=== PATIENT | male | born 1950 | race Caucasian/White ===

== ENCOUNTER → 2016-08-04 | Outpatient (CLI) | payer MEDICARE ==
[2016-08-04 08:18] LABS: Basophils # (A) 0.1 k/uL (0-0.2); Basophils % (A) 1 %; CH 31.9; CHCM 34.1; Eosinophils # (A) 0.3 k/uL (0-0.7); Eosinophils % (A) 4 %; HCT 44.9 % (39.0-53.0); HDW 2.81; HGB 14.8 gm/dL (13.0-17.5); Luc # (Auto) 0.16; Luc % (Auto) 2; Lymphocytes # (A) 2.1 k/uL (1.0-4.8); Lymphocytes % (A) 26 %; Mean Platelet Volume 7.4; Monocytes # (A) 0.4 k/uL (0-1.0); Monocytes % (A) 5 %; Neutrophils # (A) 5.1 k/uL (1.3-7.7); Neutrophils % (A) 63 %; RBC 4.78 m/uL (4.30-5.90); RDW 13.7 % (11.5-15.5); WBC 8.2 k/uL (3.8-10.6); WBC (Perox) 8.32
[2016-08-04 13:22] LABS: Calcium 9.4 mg/dL (8.4-10.2); Magnesium 1.8 mg/dL (1.6-2.3); Phosphorous 3.6 mg/dL (2.5-4.5); Uric Acid 5.9 mg/dL (3.5-8.5)
[2016-08-04 13:31] LABS: % Iron Saturation 32.6 % (20-50)
== END ==
LOC: LABWHC1 07:40
PROVIDERS: ATTEND Nurse Practitioner Family
DX: N18.3 Chronic kidney disease, stage 3 (moderate) (principal); E55.9 Vitamin D deficiency, unspecified; N25.81 Secondary hyperparathyroidism of renal origin; M10.9 Gout, unspecified
CPT/HCPCS: 36415; 80048; 82043; 82306; 82728; 83540; 83550; 83735; 83970; 84100; 84550; 85025

== ENCOUNTER → 2016-12-06 | Outpatient (CLI) | payer MEDICARE ==
[2016-12-06 09:14] LABS: Basophils # (A) 0.1 k/uL (0-0.2); Basophils % (A) 1 %; CH 32.3; CHCM 34.2; Eosinophils # (A) 0.5 k/uL (0-0.7); Eosinophils % (A) 6 %; HCT 46.4 % (39.0-53.0); HDW 2.87; HGB 15.2 gm/dL (13.0-17.5); Luc % (Auto) 1; Lymphocytes # (A) 1.9 k/uL (1.0-4.8); Lymphocytes % (A) 23 %; MCHC 32.7 g/dL (31.0-37.0); Mean Platelet Volume 8.5; Monocytes # (A) 0.4 k/uL (0-1.0); Monocytes % (A) 5 %; Neutrophils # (A) 5.3 k/uL (1.3-7.7); Neutrophils % (A) 64 %; RBC 4.89 m/uL (4.30-5.90); RDW 14.2 % (11.5-15.5); WBC 8.2 k/uL (3.8-10.6); WBC (Perox) 7.86
[2016-12-06 09:33] LABS: Calcium 8.9 mg/dL (8.4-10.2); Magnesium 1.8 mg/dL (1.6-2.3); Phosphorous 3.2 mg/dL (2.5-4.5); Potassium 3.7 mmol/L (3.5-5.1); Uric Acid 7.3 mg/dL (3.5-8.5)
[2016-12-06 17:14] LABS: Urine Creatinine 123.4 mg/dL
== END | disposition home or self-care (01) ==
LOC: LABWHC1 08:35
PROVIDERS: ATTEND Nurse Practitioner Family
DX: E55.9 Vitamin D deficiency, unspecified (principal); N18.3 Chronic kidney disease, stage 3 (moderate); D64.9 Anemia, unspecified; M10.9 Gout, unspecified; R80.9 Proteinuria, unspecified
CPT/HCPCS: 36415; 80048; 82043; 82306; 82570; 82728; 83540; 83550; 83735; 83970; 84100; 84550; 85025

== ENCOUNTER → 2017-01-02 | Outpatient (CLI) | payer MEDICARE ==
[2017-01-02 10:10] LABS: CH 32.7; CHCM 34.7; HCT 45.1 % (39.0-53.0); HDW 2.66; HGB 14.9 gm/dL (13.0-17.5); MCH 31.3 pg (25.0-35.0); MCHC 33.1 g/dL (31.0-37.0); MCV 94.5 fL (80.0-100.0); RBC 4.77 m/uL (4.30-5.90); RDW 14.2 % (11.5-15.5); WBC 7.6 k/uL (3.8-10.6)
[2017-01-02 10:46] LABS: Calcium 9.2 mg/dL (8.4-10.2); Potassium 4.2 mmol/L (3.5-5.1); Total Bilirubin 0.8 mg/dL (0.2-1.3); Total Protein 6.8 g/dL (6.3-8.2)
[2017-01-02 14:22] LABS: Hemoglobin A1C 7.5 % (4.2-6.1)
[2017-01-02 17:03] LABS: Urine Creatinine 109.4 mg/dL
== END | disposition home or self-care (01) ==
LOC: LABWHC1 09:19
PROVIDERS: ATTEND Nurse Practitioner
DX: E11.65 Type 2 diabetes mellitus with hyperglycemia (principal); I10 Essential (primary) hypertension; E63.8 Other specified nutritional deficiencies
CPT/HCPCS: 36415; 80053; 80061; 82043; 82570; 83036; 84134; 85027

== ENCOUNTER → 2017-03-30 | Outpatient (CLI) | payer MEDICARE ==
[2017-03-30 10:07] LABS: Basophils # (A) 0.1 k/uL (0-0.2); Basophils % (A) 1 %; CH 31.3; Eosinophils # (A) 0.3 k/uL (0-0.7); Eosinophils % (A) 4 %; HCT 50.2 % (39.0-53.0); HGB 16.5 gm/dL (13.0-17.5); Luc # (Auto) 0.08; Luc % (Auto) 1; Lymphocytes # (A) 1.5 k/uL (1.0-4.8); Lymphocytes % (A) 17 %; MCH 31.2 pg (25.0-35.0); MCHC 32.8 g/dL (31.0-37.0); MCV 95.1 fL (80.0-100.0); Mean Platelet Volume 8.8; Monocytes # (A) 0.5 k/uL (0-1.0); Monocytes % (A) 6 %; Neutrophils # (A) 6.3 k/uL (1.3-7.7); Neutrophils % (A) 72 %; RBC 5.28 m/uL (4.30-5.90); RDW 14.3 % (11.5-15.5); WBC 8.8 k/uL (3.8-10.6); WBC (Perox) 8.72
[2017-03-30 10:14] LABS: Appearance,Urine Clear (Clear); Bilirubin,Urine Negative (Negative); Glucose,Urine (UA) 1+ (Negative); Ketones,Urine Negative (Negative); Leukocyte Esterase,Urine Negative (Negative); Mucus,Urine Rare /hpf; Nitrite,Urine Negative (Negative); Particle Count 1516; Protein,Urine 3+ (Negative); RBC,Urine 2 /hpf (0-5); Specific Gravity,Urine 1.016 (1.001-1.035); UA Billing (MACRO vs. MICRO) MICRO; Urobilinogen,Urine <2.0 mg/dL (<2.0); WBC,Urine 3 /hpf (0-5)
[2017-03-30 10:23] LABS: Calcium 9.1 mg/dL (8.4-10.2); Magnesium 1.8 mg/dL (1.6-2.3); Phosphorus 3.7 mg/dL (2.5-4.5); Potassium 3.7 mmol/L (3.5-5.1); Uric Acid 6.8 mg/dL (3.5-8.5)
[2017-03-30 16:14] LABS: Iron Saturation 37.23 (15.00-50.00)
== END | disposition home or self-care (01) ==
LOC: LABWHC1 09:17
PROVIDERS: ATTEND Internal Medicine Nephrology
DX: E55.9 Vitamin D deficiency, unspecified (principal); E21.3 Hyperparathyroidism, unspecified; N39.0 Urinary tract infection, site not specified; M10.9 Gout, unspecified; N18.3 Chronic kidney disease, stage 3 (moderate); D63.1 Anemia in chronic kidney disease
CPT/HCPCS: 36415; 80048; 81001; 82306; 82728; 83540; 83550; 83735; 83970; 84100; 84550; 85025

== ENCOUNTER → 2017-05-12 | Outpatient (CLI) | payer MEDICARE ==
[2017-05-12 09:27] LABS: Basophils # (A) 0.1 k/uL (0-0.2); Basophils % (A) 1 %; Eosinophils # (A) 0.4 k/uL (0-0.7); Eosinophils % (A) 5 %; HCT 48.6 % (39.0-53.0); Lymphocytes # (A) 1.7 k/uL (1.0-4.8); Lymphocytes % (A) 22 %; MCH 30.5 pg (25.0-35.0); MCHC 32.9 g/dL (31.0-37.0); MCV 92.6 fL (80.0-100.0); Mean Platelet Volume 8.4; Monocytes # (A) 0.4 k/uL (0-1.0); Monocytes % (A) 5 %; Neutrophils # (A) 5.3 k/uL (1.3-7.7); Neutrophils % (A) 67 %; Platelet Count 223 k/uL (150-450); RBC 5.25 m/uL (4.30-5.90); RDW 13.8 % (11.5-15.5); WBC 7.9 k/uL (3.8-10.6)
[2017-05-12 09:38] LABS: Calcium 9.1 mg/dL (8.4-10.2); Magnesium 1.8 mg/dL (1.6-2.3); Phosphorus 3.4 mg/dL (2.5-4.5); Potassium 3.5 mmol/L (3.5-5.1); Uric Acid 5.8 mg/dL (3.5-8.5)
[2017-05-12 10:16] LABS: Appearance,Urine Clear (Clear); Bacteria,Urine Rare /hpf; Bilirubin,Urine Negative (Negative); Blood,Urine Trace (Negative); Color,Urine Yellow; Glucose,Urine (UA) Trace (Negative); Hyaline Casts,Urine 4 /lpf (0-2); Ketones,Urine Negative (Negative); Leukocyte Esterase,Urine Negative (Negative); Mucus,Urine Rare /hpf; Nitrite,Urine Negative (Negative); PH, Urine 6.5 (5.0-8.0); Protein,Urine 3+ (Negative); RBC,Urine 1 /hpf (0-5); Specific Gravity,Urine 1.013 (1.001-1.035); Squamous Epithelial Cell,Urine <1 /hpf (0-4); Urobilinogen,Urine <2.0 mg/dL (<2.0); WBC,Urine 1 /hpf (0-5)
[2017-05-12 16:36] LABS: Iron Saturation 28.31 (15.00-50.00)
[2017-05-12 16:44] LABS: Vitamin D 25 Hydroxy 25.4 ng/mL (30.0-100.0)
[2017-05-12 17:22] LABS: Parathyroid Hormone Intact 78.3 pg/mL (14.0-72.0)
== END | disposition home or self-care (01) ==
LOC: LABWHC1 08:39
PROVIDERS: ATTEND Internal Medicine Nephrology
DX: N18.3 Chronic kidney disease, stage 3 (moderate) (principal); N39.0 Urinary tract infection, site not specified; D64.9 Anemia, unspecified; E55.9 Vitamin D deficiency, unspecified; E21.3 Hyperparathyroidism, unspecified; M10.9 Gout, unspecified
CPT/HCPCS: 36415; 80048; 81001; 82306; 82728; 83540; 83550; 83735; 83970; 84100; 84550; 85025

== ENCOUNTER → 2017-06-24 | Outpatient (CLI) | payer MEDICARE ==
[2017-06-24 10:37] LABS: HGB 14.8 gm/dL (13.0-17.5); MCH 30.6 pg (25.0-35.0); MCHC 32.8 g/dL (31.0-37.0); MCV 93.5 fL (80.0-100.0); Mean Platelet Volume 7.5; Platelet Count 241 k/uL (150-450); RBC 4.82 m/uL (4.30-5.90); RDW 13.5 % (11.5-15.5); WBC 10.1 k/uL (3.8-10.6)
[2017-06-24 11:08] LABS: Potassium 4.2 mmol/L (3.5-5.1)
== END | disposition home or self-care (01) ==
LOC: LABPAT 09:38
PROVIDERS: ATTEND Internal Medicine Interventional Cardiology
DX: Z01.812 Encounter for preprocedural laboratory examination (principal); I25.10 Atherosclerotic heart disease of native coronary artery without angina pectoris
CPT/HCPCS: 36415; 80051; 82565; 84520; 85027

== ENCOUNTER 2017-07-01 05:49 | Day surgery (SDC) | payer MEDICARE ==
[2017-06-25 16:00] VITALS: BMI 33.7
[~2017-07-01 05:49] MED LIST: ALPRAZolam 0.25 MG TAB PO PRN; ALPRAZolam 0.5 MG TAB PO PRN; ASPIRIN 325 MG TAB PO STA; NITROGLYCERIN SL TABS 0.4 MG TAB SUBLINGUAL PRN; SODIUM CHLORIDE 0.9% 1,000 ML IV SCH
[2017-07-01] MEDS ORDERED: SODIUM CHLORIDE 0.9% 1,000 ML IV SCH ×2 (06:00→09:45)
[2017-07-01 06:29] LABS: Glucose,Whole Blood 221 mg/dL (75-99)
[2017-07-01 06:50] LABS: Calcium 9.2 mg/dL (8.4-10.2); Potassium 3.4 mmol/L (3.5-5.1)
[2017-07-01] MEDS ORDERED: INSULIN ASPART 100 UNIT/ML 1 ML 10 ML VIAL SQ ONE ×2 (07:08→10:12)
[2017-07-01 07:30] VITALS: PULSE 78; TEMP 98.2
[2017-07-01] MEDS ORDERED: VERAPAMIL 2.5 MG/ML 2 ML AMP ONE (08:59)
[2017-07-01] MEDS ORDERED: LIDOCAINE 2% INJ 20 MG/ML (20 ML MDV) ONE (08:59)
[2017-07-01] MEDS ORDERED: MIDAZOLAM 2 MG/2 ML VIAL ONE (08:59)
[2017-07-01] MEDS ORDERED: LIDOCAINE 2% INJ 20 MG/ML SQ ONE (09:08)
[2017-07-01] MEDS ORDERED: MIDAZOLAM 2 MG/2 ML VIAL IVP ONE (09:10)
[2017-07-01] MEDS ORDERED: IODIXANOL 320 MG/ML 100 ML INTRAARTER ONE (09:30)
[2017-07-01] MEDS ORDERED: SODIUM CHLORIDE 0.9% 1,000 ML IV ONE (09:31)
[2017-07-01] MEDS ORDERED: RX INFO: IV CONTRAST WAS GIVEN 1 EACH MISC MISCELLANE PRN (09:43)
[2017-07-01 10:19] LABS: Glucose,Whole Blood 226 mg/dL (75-99)
--- NOTE | 2017-07-01 10:33 | CC ---
CARDIAC CATHETERIZATION REPORT DATE OF SERVICE: 07/01/2017 PERFORMING PHYSICIAN: Shantanu Gong MD. PROCEDURE PERFORMED: 1. Selective left and right coronary angiogram. 2. SVG to RCA angiogram. 3. Left internal mammary artery angiogram. 4. Left heart catheterization. INDICATION: This is a pleasant 67-year-old gentleman who is known to have coronary artery disease and prior coronary artery bypass grafting who received AGUILLON to LAD, SVG to diagonal, SVG to first, second and third OM, and SVG to RCA, underwent a stress echocardiogram and that showed multiple areas of ischemia. In view of that, a heart catheterization was recommended. He is asymptomatic, but he does have very poor functional capacity. APPROACH: Right common femoral artery. COMPLICATION: None. LEVEL OF SEDATION: Moderate with sedation length of 28 minutes. PROCEDURE DESCRIPTION: After obtaining an informed consent, the patient was brought to the [facility]. The right common femoral artery was cannulated using micropuncture technique and a micropuncture wire passed easily, then I placed a 6-Swazi sheath in the right common femoral artery. After that, I did selective left and right coronary angiogram using JL4 and JR4 catheters. I did after that left heart catheterization using 6-Swazi pigtail catheter. The SVG to RCA angiogram and AGUILLON to LAD angiogram were performed using the JR4 catheter. After that, I did aortic root angiogram to assess the SVG to the left circumflex. The procedure was completed without any complication. SELECTIVE CORONARY ANGIOGRAM: 1. The left main is a large caliber vessel and it is angiographically normal. It bifurcates into the circumflex and left anterior descending artery. 2. The left circumflex is a large caliber vessel. It is a nondominant vessel. The proximal circ appeared to have mild disease only. It gives rise into first OM branch which is a medium-caliber vessel with disease in the proximal portion about 50%. The mid left circumflex has mild disease only and gives rise into a second OM branch which appeared to be angiographically normal. The left circumflex in the mid to distal portion has a tubular lesion in the range of 70%. 3. The LAD, the proximal LAD appeared to have mild disease only. The mid LAD has a long tubular lesion, appeared to be in the range of 70%. Competitive flow was seen in the LAD coming from the AGUILLON. 4. The RCA is a large caliber vessel and it is a dominant vessel and is 100% occluded in the midportion. CORONARY BYPASS ANGIOGRAM: 1. The AGUILLON to LAD is patent. 2. The SVG to diagonal is occluded. 3. The SVG to first, second and third circ are occluded. 4. The SVG to RCA is patent with disease in the distal RCA appeared to be in the range of 70%. CONCLUSION: 1. Severe triple-vessel coronary artery disease. 2. Patent AGUILLON to left anterior descending artery. 3. Patent saphenous vein graft to right coronary artery with severe disease in the right coronary artery distal to the saphenous vein graft anastomosis. 4. The occlusion of the saphenous vein graft to diagonal, OM1, OM2, and OM3. POSTPROCEDURE MANAGEMENT: The patient will be scheduled to undergo a PCI of the RCA through the SVG and also PCI of the left circumflex in the next 1 to 2 weeks. MMODL / IJN: [id number] /
--- NOTE | 2017-07-01 10:35 | LTR ---
DATE OF SERVICE: 07/01/2017 RE: Walter Simmons Dear Dr. Carmona; Mr. Walter Simmons underwent heart catheterization and that revealed severe triple- vessel coronary artery disease. We found the occlusion of all bypasses to the left circumflex and also to the diagonal. He will be scheduled to undergo an angioplasty in the next 1 to 2 weeks. I did not perform an angioplasty in view of the maximal amount of contrast we used. I want to thank you for allowing me to participate in his care. Sincerely, MD SHASHANK Garland / JASMIN: [id number] /
[2017-07-01] MEDS ORDERED: hydrALAZINE HCL 20 MG/ML 1 ML VIAL IVP STA (15:16)
[2017-07-01 17:06] VITALS: RESP 18
[2017-07-01 17:10] VITALS: BP 177/70
== END 2017-07-01 17:31 | disposition home or self-care (01) ==
LOC: CATHCVL 05:49
PROVIDERS: ATTEND Internal Medicine Interventional Cardiology
DX: I25.700 Atherosclerosis of coronary artery bypass graft(s), unspecified, with unstable angina pectoris (principal); I25.110 Atherosclerotic heart disease of native coronary artery with unstable angina pectoris; I10 Essential (primary) hypertension; E78.5 Hyperlipidemia, unspecified; Z95.1 Presence of aortocoronary bypass graft; E11.9 Type 2 diabetes mellitus without complications; E78.00 Pure hypercholesterolemia, unspecified; Z86.711 Personal history of pulmonary embolism; Z79.82 Long term (current) use of aspirin; Z79.4 Long term (current) use of insulin; Z79.899 Other long term (current) drug therapy
CPT/HCPCS: 93459; 93567; 80048; C1894 ×2; C1769; C1760; J2001; J2250; J0360; Q9967

== ENCOUNTER 2017-07-14 09:03 | Day surgery (SDC) | payer MEDICARE ==
[2017-07-13 11:28] VITALS: BMI 33.7
[~2017-07-14 09:03] MED LIST changes: -SODIUM CHLORIDE 0.9% 1,000 ML IV SCH; +SODIUM CHLORIDE 0.9% 1,000 ML in EMPTY BAG 1 BAG IV ONE
[2017-07-14 09:37] LABS: Glucose,Whole Blood 246 mg/dL (75-99)
[2017-07-14] MEDS: INSULIN ASPART 100 UNIT/ML 1 ML 10 ML VIAL SQ SCH ×4 (09:37→21:12)
[2017-07-14 12:17] LABS: Glucose,Whole Blood 229 mg/dL (75-99)
[2017-07-14] MEDS ORDERED: MIDAZOLAM 2 MG/2 ML VIAL IV ONE (13:15)
[2017-07-14] MEDS ORDERED: LIDOCAINE 2% INJ 20 MG/ML SQ ONE (13:22)
[2017-07-14] MEDS ORDERED: BIVALIRUDIN BOLUS 250 MG/50 ML IV ONE (13:28)
[2017-07-14] MEDS ORDERED: BIVALIRUDIN 250 MG in SODIUM CHLORIDE 0.9% 50 ML IV ONE (13:29)
[2017-07-14] MEDS ORDERED: niCARdipine 25 MG/10 ML VIAL INTRACORON ONE (13:37)
[2017-07-14] MEDS ORDERED: NITROGLYCERIN 1000MCG/10ML SYRINGE INTRACORON ONE (13:37)
[2017-07-14] MEDS ORDERED: ZOLPIDEM 5 MG TAB PO PRN (13:44)
[2017-07-14] MEDS ORDERED: ATROPINE SULFATE 0.1 MG/ML 10ML SYRINGE IV PRN (13:44)
[2017-07-14] MEDS ORDERED: MAG HYDROX/AL HYDROX/SIMETH 30 ML CUP PO PRN (13:44)
[2017-07-14] MEDS ORDERED: RX INFO: IV CONTRAST WAS GIVEN 1 EACH MISC MISCELLANE PRN (13:44)
[2017-07-14] MEDS ORDERED: NITROGLYCERIN SL TABS 0.4 MG TAB SUBLINGUAL PRN (13:44)
[2017-07-14] MEDS ORDERED: SODIUM CHLORIDE 0.9% 1,000 ML IV SCH (13:45)
[2017-07-14] MEDS ORDERED: CLOPIDOGREL 75 MG TAB PO ONE (13:45)
[2017-07-14] MEDS ORDERED: IODIXANOL 320 MG/ML 100 ML INTRAARTER ONE (13:53)
[2017-07-14 14:39] LABS: Glucose,Whole Blood 191 mg/dL (75-99)
[2017-07-14 17:26] LABS: Glucose,Whole Blood 202 mg/dL (75-99)
[2017-07-14] MEDS ORDERED: INSULIN ASPART 100 UNIT/ML 1 ML 10 ML VIAL SQ SCH ×2 (17:30)
[2017-07-14] MEDS ORDERED: ACETAMINOPHEN TAB 325 MG TAB PO PRN (19:06)
[2017-07-14 20:51] LABS: Glucose,Whole Blood 138 mg/dL (75-99)
[2017-07-14] MEDS ORDERED: METOPROLOL TARTRATE 50 MG TAB PO SCH (21:00)
[2017-07-14] MEDS ORDERED: HYDROCHLOROTHIAZIDE 12.5 MG CAP PO SCH (21:00)
[2017-07-14] MEDS ORDERED: FAMOTIDINE 20 MG TAB PO SCH (21:00)
[2017-07-14] MEDS ORDERED: INSULIN NPH 300 UNIT/3 ML VIAL SQ SCH (21:00)
[2017-07-14] MEDS ORDERED: ATORVASTATIN 20 MG TAB PO SCH (21:00)
[2017-07-15 04:31] VITALS: RESP 18
[2017-07-15 06:08] LABS: Glucose,Whole Blood 169 mg/dL (75-99)
[2017-07-15] MEDS: INSULIN ASPART 100 UNIT/ML 1 ML 10 ML VIAL SQ SCH (06:13)
[2017-07-15 07:13] LABS: Basophils # (A) 0.1 k/uL (0-0.2); Basophils % (A) 1 %; Eosinophils # (A) 0.3 k/uL (0-0.7); Eosinophils % (A) 3 %; HCT 40.3 % (39.0-53.0); HGB 13.8 gm/dL (13.0-17.5); Lymphocytes # (A) 1.1 k/uL (1.0-4.8); Lymphocytes % (A) 13 %; MCHC 34.3 g/dL (31.0-37.0); MCV 90.4 fL (80.0-100.0); Mean Platelet Volume 7.3; Monocytes # (A) 0.6 k/uL (0-1.0); Monocytes % (A) 7 %; Neutrophils # (A) 6.5 k/uL (1.3-7.7); Neutrophils % (A) 75 %; Platelet Count 223 k/uL (150-450); RBC 4.46 m/uL (4.30-5.90); RDW 13.5 % (11.5-15.5); WBC 8.8 k/uL (3.8-10.6)
[2017-07-15 07:20] LABS: Calcium 9.1 mg/dL (8.4-10.2); Potassium 3.6 mmol/L (3.5-5.1)
[2017-07-15] MEDS ORDERED: INSULIN ASPART 100 UNIT/ML 1 ML 10 ML VIAL SQ SCH (07:30)
--- NOTE | 2017-07-15 08:31 | PTCA ---
PERCUTANEOUSTRANS CORORONARY ANGIOGRAPHY DATE OF SERVICE: July 14, 2017. PERFORMING PHYSICIAN: Shantanu Gong MD, business developer. PROCEDURE PERFORMED: Successful stenting of the distal RCA using a 2.75 x 18 mm Xience JOEY with good angiographic results. INDICATION: This is a pleasant 67-year-old gentleman with a known history of coronary artery disease and prior coronary artery bypass grafting who underwent a heart catheterization recently and that showed severe triple-vessel coronary artery disease with patent SVG to RCA as well as occlusion of all other vein graft and also patent AGUILLON to LAD, who was brought today to undergo an intervention on the RCA through with the SVG. APPROACH: Right common femoral artery. COMPLICATION: None. LEVEL OF SEDATION: Moderate with sedation length of 25 minutes. PROCEDURE DESCRIPTION: After obtaining an informed consent, the patient was brought to cardiac cathodic protection technician. The right common femoral artery was cannulated using micropuncture technique, the micropuncture wire passed easily, then I placed a 6-Czech sheath in the right common femoral artery. After that, I did start anticoagulation using Angiomax. Subsequently I did engage the SVG using multipurpose catheter. A whisper wire was used to wire the RCA. Subsequently I did balloon angioplasty of the distal RCA through the SVG using 2.5 x 15 mm balloon and then deployed a 275 x 18 mm Xience JOEY where the stent was positioned under fluoroscopy guidance and deployed under 14 atmospheres for 20 seconds. The following angiogram showed good angiographic results. The procedure was completed without any complication. POSTPROCEDURE MANAGEMENT: 1. Dual anti-platelet therapy. 2. Risk factors modifications. 3. Follow up with the patient. MMODL / IJN: [id number] /
[2017-07-15] MEDS ORDERED: ASPIRIN 81 MG PO SCH (09:00)
[2017-07-15] MEDS ORDERED: LISINOPRIL 20 MG TAB PO SCH (09:00)
[2017-07-15] MEDS ORDERED: METOPROLOL TARTRATE 50 MG TAB PO SCH (09:00)
[2017-07-15] MEDS ORDERED: PIOGLITAZONE 15 MG TAB PO SCH (09:00)
[2017-07-15] MEDS ORDERED: amLODIPine 10 MG TAB PO SCH (09:00)
[2017-07-15] MEDS ORDERED: ALLOPURINOL 100 MG TAB PO SCH (09:00)
[2017-07-15 10:42] VITALS: BP 141/72; PULSE 82; TEMP 97.9
[2017-07-15] MEDS ORDERED: CLOPIDOGREL 75 MG TAB PO SCH (12:00)
[2017-07-15 14:27] LABS: Hemoglobin A1C 8.9 % (4.0-6.0)
--- NOTE | 2017-07-16 08:33 | DS ---
DISCHARGE SUMMARY ADMISSION DATE: 07/14/2017. DISCHARGE DATE: 07/15/2017. BRIEF HISTORY: This is a pleasant 67-year-old gentleman who was admitted to the hospital and underwent successful balloon angioplasty of the distal right coronary artery with a good angiographic result and without any complication using drug-eluting stent. The procedure was performed from the right groin which is soft, nontender and without any bruises. The patient is going to be discharged home on dual anti-platelet therapy as well as statin. Also I am going to follow up with the patient in a week. MMFLORENCE / ANTONN: [id number] /
[2017-07-28] MEDS ORDERED: ERGOCALCIFEROL 50,000 UNIT CAP PO SCH (09:00)
== END 2017-07-15 10:15 | disposition home or self-care (01) ==
LOC: CATHCVL 09:03 → 6SEL 13:40 → CATHCVL 07-15 10:15
PROVIDERS: ATTEND Internal Medicine Interventional Cardiology
DX: I25.810 Atherosclerosis of coronary artery bypass graft(s) without angina pectoris (principal); I10 Essential (primary) hypertension; E78.5 Hyperlipidemia, unspecified; E11.9 Type 2 diabetes mellitus without complications; Z79.82 Long term (current) use of aspirin; Z79.4 Long term (current) use of insulin; Z79.899 Other long term (current) drug therapy; Z86.711 Personal history of pulmonary embolism; Z95.1 Presence of aortocoronary bypass graft
CPT/HCPCS: 80048; 85025; 83036; C9604; C1769 ×3; C1887; C1725; C1894; C1874; J2001; J2250; Q9967; J0583

== ENCOUNTER 2017-08-05 06:29 | Day surgery (SDC) | payer MEDICARE ==
[2017-08-03 16:26] VITALS: BMI 33.7
[2017-08-05] MEDS ORDERED: ASPIRIN 325 MG TAB PO ONE (06:37)
[2017-08-05] MEDS ORDERED: SODIUM CHLORIDE 0.9% 1,000 ML in EMPTY BAG 1 BAG IV ONE (06:37)
[2017-08-05] MEDS ORDERED: ALPRAZolam 0.25 MG TAB PO PRN (06:37)
[2017-08-05 07:28] LABS: Glucose,Whole Blood 164 mg/dL (75-99)
[2017-08-05 07:35] LABS: Basophils # (A) 0.1 k/uL (0-0.2); Basophils % (A) 1 %; Eosinophils # (A) 0.4 k/uL (0-0.7); Eosinophils % (A) 5 %; HCT 39.2 % (39.0-53.0); HGB 13.6 gm/dL (13.0-17.5); Lymphocytes # (A) 1.5 k/uL (1.0-4.8); Lymphocytes % (A) 17 %; MCH 31.3 pg (25.0-35.0); MCHC 34.6 g/dL (31.0-37.0); MCV 90.3 fL (80.0-100.0); Mean Platelet Volume 7.6; Monocytes # (A) 0.5 k/uL (0-1.0); Monocytes % (A) 5 %; Neutrophils # (A) 6.3 k/uL (1.3-7.7); Neutrophils % (A) 72 %; Platelet Count 241 k/uL (150-450); RBC 4.34 m/uL (4.30-5.90); RDW 13.4 % (11.5-15.5); WBC 8.8 k/uL (3.8-10.6)
[2017-08-05] MEDS ORDERED: SODIUM CHLORIDE 0.9% 1,000 ML IV ONE (07:49)
[2017-08-05 07:51] LABS: Calcium 9.1 mg/dL (8.4-10.2); Potassium 3.7 mmol/L (3.5-5.1)
[2017-08-05] MEDS ORDERED: LIDOCAINE 2% INJ 20 MG/ML (20 ML MDV) ONE (08:41)
[2017-08-05] MEDS ORDERED: MIDAZOLAM 2 MG/2 ML VIAL ONE (08:52)
[2017-08-05] MEDS: MIDAZOLAM 2 MG/2 ML VIAL IV ONE ×2 (09:05→09:12)
[2017-08-05] MEDS ORDERED: fentaNYL (PF) 50 MCG/ML 2 ML AMP ONE (09:15)
[2017-08-05] MEDS ORDERED: fentaNYL (PF) 50 MCG/ML 2 ML AMP IV ONE (09:17)
[2017-08-05] MEDS ORDERED: BIVALIRUDIN 250 MG in SODIUM CHLORIDE 0.9% 50 ML IV ONE (09:19)
[2017-08-05] MEDS ORDERED: BIVALIRUDIN BOLUS 250 MG/50 ML IV ONE (09:19)
[2017-08-05] MEDS: NITROGLYCERIN 1000MCG/10ML SYRINGE INTRACORON ONE ×2 (09:21→09:52)
[2017-08-05] MEDS ORDERED: niCARdipine Syringe (1,000 mcg/10 mL) INTRACORON ONE (09:53)
[2017-08-05] MEDS ORDERED: CLOPIDOGREL 75 MG TAB ONE (09:57)
[2017-08-05] MEDS ORDERED: IOPAMIDOL-370 125ML BTL INJ ONE (09:59)
[2017-08-05] MEDS ORDERED: CLOPIDOGREL 75 MG TAB PO ONE (10:06)
[2017-08-05] MEDS ORDERED: HEPARIN SODIUM 1,000 UN/ML (10ML VL) ONE (10:10)
[2017-08-05] MEDS ORDERED: ZOLPIDEM 5 MG TAB PO PRN (10:11)
[2017-08-05] MEDS ORDERED: MAG HYDROX/AL HYDROX/SIMETH 30 ML CUP PO PRN (10:11)
[2017-08-05] MEDS ORDERED: RX INFO: IV CONTRAST WAS GIVEN 1 EACH MISC MISCELLANE PRN (10:11)
[2017-08-05] MEDS ORDERED: ATROPINE SULFATE 0.1 MG/ML 10ML SYRINGE IV PRN (10:11)
[2017-08-05] MEDS ORDERED: NITROGLYCERIN SL TABS 0.4 MG TAB SUBLINGUAL PRN (10:11)
[2017-08-05] MEDS ORDERED: SODIUM CHLORIDE 0.9% 1,000 ML IV SCH (10:15)
[2017-08-05 11:34] LABS: Glucose,Whole Blood 158 mg/dL (75-99)
[2017-08-05] MEDS ORDERED: INSULIN ASPART 100 UNIT/ML 1 ML 10 ML VIAL SQ ONE (12:51)
--- NOTE | 2017-08-05 13:00 | PTCA ---
PERCUTANEOUSTRANS CORORONARY ANGIOGRAPHY PERCUTANEOUS CORONARY INTERVENTION. DATE OF SERVICE: 08/05/2017 PERFORMING PHYSICIAN: Shantanu Gong MD, orchestra conductor. PROCEDURE PERFORMED: Successful stenting of the third obtuse marginal branch of the left circumflex using 2.5 x 15 mm stents with good angiographic results. INDICATION: This is a pleasant 67-year-old gentleman who was experiencing symptoms of fatigue and tiredness. He underwent a stress test and that showed multiple areas of ischemia. Subsequently, he underwent a heart catheterization and that revealed severe triple- vessel coronary artery disease where he underwent stenting of the RCA in the past and he was brought today to undergo stenting of the left circumflex. APPROACH: Right common femoral artery. COMPLICATION: None. LEVEL OF SEDATION: Moderate sedation length of 54 minutes. PROCEDURE DESCRIPTION: After obtaining informed consent, the patient was brought to the cardiac sawyer cork slabs. The right common femoral artery was cannulated using micropuncture technique, the micropuncture wire passed easily, then I placed a 6-Wolof sheath in the right common femoral artery. At that point, anticoagulation was initiated using Angiomax. After that, I did engage the left main using XB3.5 guide. It was wired using a whisper wire. After that I did balloon angioplasty of the third obtuse marginal branch of the left circumflex using a 2.5 mm balloon and after that I could not advance the stent, so I had to double wire the OM using a run-through wire. After that I deployed 2.5 x 15 mm stents in the proximal and midportion of that OM where both the stents were positioned under fluoroscopy guidance and deployed there under 8 atmospheres for 20 seconds. The following angiogram showed good angiographic results and the procedure was completed without any complication. POSTPROCEDURE MANAGEMENT: 1. Dual anti-platelet therapy. 2. Risk factors modifications. 3. Follow up with the patient. MMODL / IJN: [id number] /
[2017-08-05 16:56] LABS: Glucose,Whole Blood 158 mg/dL (75-99)
[2017-08-05] MEDS ORDERED: ACETAMINOPHEN TAB 325 MG TAB PO PRN (17:07)
[2017-08-05] MEDS ORDERED: INSULIN ASPART 100 UNIT/ML 1 ML 10 ML VIAL SQ SCH (17:30)
[2017-08-05 20:50] LABS: Glucose,Whole Blood 158 mg/dL (75-99)
[2017-08-05] MEDS ORDERED: INSULIN NPH 300 UNIT/3 ML VIAL SQ SCH (21:00)
[2017-08-05] MEDS ORDERED: METOPROLOL TARTRATE 50 MG TAB PO SCH (21:00)
[2017-08-05] MEDS ORDERED: HYDROCHLOROTHIAZIDE 12.5 MG CAP PO SCH (21:00)
[2017-08-05] MEDS ORDERED: FAMOTIDINE 20 MG TAB PO SCH (21:00)
[2017-08-05] MEDS ORDERED: ATORVASTATIN 20 MG TAB PO SCH (21:00)
[2017-08-06 06:21] LABS: Glucose,Whole Blood 121 mg/dL (75-99)
[2017-08-06 06:32] LABS: Basophils % (A) 1 %; Eosinophils # (A) 0.4 k/uL (0-0.7); Eosinophils % (A) 5 %; HCT 37.7 % (39.0-53.0); Lymphocytes # (A) 1.4 k/uL (1.0-4.8); Lymphocytes % (A) 21 %; MCH 31.3 pg (25.0-35.0); MCHC 34.4 g/dL (31.0-37.0); Mean Platelet Volume 7.7; Monocytes # (A) 0.4 k/uL (0-1.0); Monocytes % (A) 5 %; Neutrophils # (A) 4.6 k/uL (1.3-7.7); Neutrophils % (A) 67 %; Platelet Count 211 k/uL (150-450); RBC 4.14 m/uL (4.30-5.90); RDW 13.6 % (11.5-15.5); WBC 6.9 k/uL (3.8-10.6)
[2017-08-06 06:46] LABS: Potassium 3.3 mmol/L (3.5-5.1)
[2017-08-06] MEDS ORDERED: INSULIN ASPART 100 UNIT/ML 1 ML 10 ML VIAL SQ SCH ×2 (07:30→12:30)
[2017-08-06 08:13] VITALS: BP 147/69; PULSE 89; RESP 18; TEMP 97.1
[2017-08-06] MEDS ORDERED: ASPIRIN 81 MG PO SCH (09:00)
[2017-08-06] MEDS ORDERED: FUROSEMIDE 40 MG TAB PO SCH (09:00)
[2017-08-06] MEDS ORDERED: amLODIPine 10 MG TAB PO SCH (09:00)
[2017-08-06] MEDS ORDERED: METOPROLOL TARTRATE 50 MG TAB PO SCH (09:00)
[2017-08-06] MEDS ORDERED: ALLOPURINOL 100 MG TAB PO SCH (09:00)
[2017-08-06] MEDS ORDERED: PIOGLITAZONE 15 MG TAB PO SCH (09:00)
[2017-08-06] MEDS ORDERED: LISINOPRIL 10 MG TAB PO SCH (09:00)
[2017-08-06] MEDS ORDERED: CLOPIDOGREL 75 MG TAB PO SCH (09:00)
--- NOTE | 2017-08-06 10:25 | DS ---
DISCHARGE SUMMARY ADMISSION DATE: 08/05/2017 DISCHARGE DATE: 08/06/2017 BRIEF HISTORY: This is a pleasant 67-year-old gentleman with coronary artery disease and prior coronary artery bypass grafting who was experiencing symptoms of fatigue and tiredness as well as shortness of breath. He underwent a heart catheterization and that revealed severe disease involving the distal right coronary artery as well as severe disease involving the left circumflex. He underwent successful stenting of the distal RCA and was brought yesterday and underwent successful stenting of the left circumflex with good angiographic results. The procedure was performed with good angiographic results with possible tiny distal edge dissection was non flow-limiting. On follow up with him today, he is already feeling better. He stated he is quite more alert. He is going to be discharged home on dual anti-platelet therapy and I will see the patient in the office next week. SHASHANK / JAMSIN: [id number] /
[2017-09-01] MEDS ORDERED: ERGOCALCIFEROL 50,000 UNIT CAP PO SCH (12:00)
== END 2017-08-06 09:03 | disposition home or self-care (01) ==
LOC: CATHCVL 06:29 → 6SEL 10:06 → CATHCVL 08-06 09:03
PROVIDERS: ATTEND Internal Medicine Interventional Cardiology
DX: I25.10 Atherosclerotic heart disease of native coronary artery without angina pectoris (principal); I10 Essential (primary) hypertension; E78.5 Hyperlipidemia, unspecified; E11.9 Type 2 diabetes mellitus without complications; Z79.4 Long term (current) use of insulin; Z86.711 Personal history of pulmonary embolism; Z79.02 Long term (current) use of antithrombotics/antiplatelets; Z95.1 Presence of aortocoronary bypass graft; Z95.5 Presence of coronary angioplasty implant and graft; Z82.3 Family history of stroke; Z79.82 Long term (current) use of aspirin; Z79.899 Other long term (current) drug therapy
CPT/HCPCS: 80048 ×2; 85025 ×2; C9600; C1760 ×2; C1769 ×6; C1725; C1887; C1894 ×2; C1874; J2250; J3010; J0583; Q9967

== ENCOUNTER → 2017-08-25 | Outpatient (CLI) | payer MEDICARE ==
[2017-08-25 10:40] LABS: Basophils # (A) 0.1 k/uL (0-0.2); Basophils % (A) 1 %; Eosinophils # (A) 0.4 k/uL (0-0.7); Eosinophils % (A) 5 %; HCT 40.2 % (39.0-53.0); HGB 13.7 gm/dL (13.0-17.5); Lymphocytes # (A) 1.3 k/uL (1.0-4.8); Lymphocytes % (A) 14 %; MCH 31.6 pg (25.0-35.0); MCHC 34.1 g/dL (31.0-37.0); MCV 92.5 fL (80.0-100.0); Mean Platelet Volume 7.7; Monocytes # (A) 0.4 k/uL (0-1.0); Monocytes % (A) 5 %; Neutrophils # (A) 6.8 k/uL (1.3-7.7); Neutrophils % (A) 75 %; Platelet Count 239 k/uL (150-450); RBC 4.34 m/uL (4.30-5.90); RDW 13.7 % (11.5-15.5); WBC 9.1 k/uL (3.8-10.6)
[2017-08-25 11:08] LABS: Calcium 9.3 mg/dL (8.4-10.2); Magnesium 1.9 mg/dL (1.6-2.3); Phosphorus 3.8 mg/dL (2.5-4.5); Potassium 3.6 mmol/L (3.5-5.1); Uric Acid 6.4 mg/dL (3.5-8.5)
[2017-08-25 13:28] LABS: Appearance,Urine Clear (Clear)
[2017-08-25 13:29] LABS: Bilirubin,Urine Negative (Negative); Color,Urine Light Yellow
[2017-08-25 13:30] LABS: Glucose,Urine (UA) 1+ (Negative); Protein,Urine 3+ (Negative)
[2017-08-25 13:31] LABS: Blood,Urine Negative (Negative); Leukocyte Esterase,Urine Negative (Negative); Nitrite,Urine Negative (Negative)
[2017-08-25 13:32] LABS: RBC,Urine 0 /hpf (0-5); Squamous Epithelial Cell,Urine 0 /hpf (0-4); Urobilinogen,Urine <2.0 mg/dL (<2.0)
[2017-08-25 13:33] LABS: WBC,Urine 0 /hpf (0-5)
[2017-08-25 15:12] LABS: Ketones,Urine Negative (Negative)
[2017-08-25 16:07] LABS: Iron Saturation 22.38 (15.00-50.00)
== END | disposition home or self-care (01) ==
LOC: LABWHC1 09:09
PROVIDERS: ATTEND Nurse Practitioner Family
DX: M10.9 Gout, unspecified (principal); R80.9 Proteinuria, unspecified; D63.1 Anemia in chronic kidney disease; N18.3 Chronic kidney disease, stage 3 (moderate); E83.39 Other disorders of phosphorus metabolism
CPT/HCPCS: 36415; 80048; 81001; 82306; 82728; 83540; 83550; 83735; 83970; 84100; 84550; 85025

== ENCOUNTER → 2017-10-26 | Outpatient (CLI) | payer MEDICARE ==
[2017-10-26 09:01] LABS: Albumin 3.9 g/dL (3.5-5.0); Calcium 9.3 mg/dL (8.4-10.2); Potassium 4.3 mmol/L (3.5-5.1); Total Bilirubin 0.6 mg/dL (0.2-1.3); Total Protein 6.5 g/dL (6.3-8.2)
[2017-10-26 09:17] LABS: T4, Free (Free Thyroxine) 0.95 ng/dL (0.78-2.19)
[2017-10-26 17:59] LABS: Hemoglobin A1C 7.7 % (4.0-6.0)
== END | disposition home or self-care (01) ==
LOC: LABWHC1 08:10
PROVIDERS: ATTEND Internal Medicine
DX: E11.65 Type 2 diabetes mellitus with hyperglycemia (principal)
CPT/HCPCS: 36415; 80053; 80061; 83036; 84439; 84443

== ENCOUNTER → 2017-11-18 | Outpatient (CLI) | payer MEDICARE ==
[2017-11-18 09:07] LABS: Appearance,Urine Clear (Clear); Bilirubin,Urine Negative (Negative); Blood,Urine Trace (Negative); Color,Urine Yellow; Glucose,Urine (UA) Negative (Negative); Ketones,Urine Negative (Negative); Leukocyte Esterase,Urine Negative (Negative); Mucus,Urine Rare /hpf; Nitrite,Urine Negative (Negative); PH, Urine 5.5 (5.0-8.0); Protein,Urine 2+ (Negative); RBC,Urine <1 /hpf (0-5); Specific Gravity,Urine 1.011 (1.001-1.035); Squamous Epithelial Cell,Urine <1 /hpf (0-4); Urobilinogen,Urine <2.0 mg/dL (<2.0); WBC,Urine <1 /hpf (0-5)
[2017-11-18 09:12] LABS: Basophils # (A) 0.1 k/uL (0-0.2); Basophils % (A) 1 %; Eosinophils # (A) 0.5 k/uL (0-0.7); Eosinophils % (A) 6 %; HGB 13.9 gm/dL (13.0-17.5); Lymphocytes # (A) 1.4 k/uL (1.0-4.8); Lymphocytes % (A) 16 %; MCHC 33.1 g/dL (31.0-37.0); MCV 93.5 fL (80.0-100.0); Mean Platelet Volume 6.8; Monocytes # (A) 0.4 k/uL (0-1.0); Monocytes % (A) 5 %; Neutrophils # (A) 6.5 k/uL (1.3-7.7); Neutrophils % (A) 71 %; Platelet Count 235 k/uL (150-450); RDW 14.4 % (11.5-15.5)
[2017-11-18 09:26] LABS: Calcium 9.2 mg/dL (8.4-10.2); Magnesium 1.9 mg/dL (1.6-2.3); Phosphorus 3.6 mg/dL (2.5-4.5); Potassium 4.6 mmol/L (3.5-5.1); Uric Acid 6.1 mg/dL (3.5-8.5)
[2017-11-18 16:26] LABS: Iron Saturation 24.31 (15.00-50.00)
[2017-11-18 16:33] LABS: Vitamin D 25 Hydroxy 35.6 ng/mL (30.0-100.0)
[2017-11-18 16:40] LABS: Parathyroid Hormone Intact 59.3 pg/mL (14.0-72.0)
== END | disposition home or self-care (01) ==
LOC: LABWHC1 08:33
PROVIDERS: ATTEND Nurse Practitioner Family
DX: E55.9 Vitamin D deficiency, unspecified (principal); E21.3 Hyperparathyroidism, unspecified; M10.9 Gout, unspecified; N39.0 Urinary tract infection, site not specified; D63.1 Anemia in chronic kidney disease; N18.3 Chronic kidney disease, stage 3 (moderate)
CPT/HCPCS: 36415; 80048; 81001; 82306; 82728; 83540; 83550; 83735; 83970; 84100; 84550; 85025

== ENCOUNTER → 2018-02-04 | Outpatient (CLI) | payer MEDICARE ==
[2018-02-04 20:02] LABS: Hemoglobin A1C 7.5 % (4.0-6.0)
== END | disposition home or self-care (01) ==
LOC: LABWHC1 08:34
PROVIDERS: ATTEND Internal Medicine
DX: E11.65 Type 2 diabetes mellitus with hyperglycemia (principal)
CPT/HCPCS: 36415; 82043; 82570; 83036

== ENCOUNTER → 2018-02-19 | Outpatient (CLI) | payer MEDICARE ==
[2018-02-19 09:34] LABS: Basophils # (A) 0.1 k/uL (0-0.2); Basophils % (A) 1 %; Eosinophils # (A) 0.8 k/uL (0-0.7); Eosinophils % (A) 10 %; HCT 40.7 % (39.0-53.0); HGB 13.2 gm/dL (13.0-17.5); Lymphocytes # (A) 1.4 k/uL (1.0-4.8); Lymphocytes % (A) 18 %; MCH 31.5 pg (25.0-35.0); MCHC 32.5 g/dL (31.0-37.0); MCV 96.8 fL (80.0-100.0); Mean Platelet Volume 7.2; Monocytes # (A) 0.4 k/uL (0-1.0); Monocytes % (A) 6 %; Neutrophils # (A) 4.8 k/uL (1.3-7.7); Neutrophils % (A) 64 %; Platelet Count 219 k/uL (150-450); RBC 4.21 m/uL (4.30-5.90); RDW 14.5 % (11.5-15.5); WBC 7.5 k/uL (3.8-10.6)
[2018-02-19 09:38] LABS: Calcium 9.3 mg/dL (8.4-10.2); Magnesium 1.9 mg/dL (1.6-2.3); Phosphorus 3.5 mg/dL (2.5-4.5); Potassium 4.1 mmol/L (3.5-5.1); Total Bilirubin 0.7 mg/dL (0.2-1.3); Total Protein 6.8 g/dL (6.3-8.2); Uric Acid 6.3 mg/dL (3.5-8.5)
[2018-02-19 09:39] LABS: Appearance,Urine Clear (Clear); Bilirubin,Urine Negative (Negative); Blood,Urine Negative (Negative); Color,Urine Yellow; Glucose,Urine (UA) Negative (Negative); Ketones,Urine Negative (Negative); Leukocyte Esterase,Urine Negative (Negative); Mucus,Urine Rare /hpf; Nitrite,Urine Negative (Negative); Protein,Urine 2+ (Negative); RBC,Urine <1 /hpf (0-5); Specific Gravity,Urine 1.013 (1.001-1.035); Urobilinogen,Urine <2.0 mg/dL (<2.0); WBC,Urine <1 /hpf (0-5)
[2018-02-19 10:07] LABS: Prostate Specific Antigen 0.91 ng/mL (0.00-4.00)
[2018-02-19 15:48] LABS: Iron Saturation 27.92 (15.00-50.00)
[2018-02-19 15:56] LABS: Vitamin D 25 Hydroxy 35.7 ng/mL (30.0-100.0)
[2018-02-19 17:54] LABS: Parathyroid Hormone Intact 82.3 pg/mL (14.0-72.0)
== END | disposition home or self-care (01) ==
LOC: LABWHC1 08:48
PROVIDERS: ATTEND Internal Medicine Nephrology
DX: E11.22 Type 2 diabetes mellitus with diabetic chronic kidney disease (principal); I12.9 Hypertensive chronic kidney disease with stage 1 through stage 4 chronic kidney disease, or unspecified chronic kidney disease; N18.3 Chronic kidney disease, stage 3 (moderate); D63.1 Anemia in chronic kidney disease; N40.0 Benign prostatic hyperplasia without lower urinary tract symptoms; E55.9 Vitamin D deficiency, unspecified; E21.3 Hyperparathyroidism, unspecified; M10.9 Gout, unspecified; N39.0 Urinary tract infection, site not specified
CPT/HCPCS: 36415; 80053; 80061; 81001; 82306; 82728; 83540; 83550; 83735; 83970; 84100; 84153; 84550; 85025

== ENCOUNTER 2018-02-27 18:47 | Emergency (ER) | payer MEDICARE ==
[2018-02-27 18:57] VITALS: BP 142/78; PULSE 94; RESP 18; TEMP 97.9
--- NOTE | 2018-02-27 19:14 | ED ---
Lower Extremity Injury HPI - General Chief Complaint: Extremity Injury, Lower Stated Complaint: Poss blood clot in leg Time Seen by Provider: 02/27/18 18:59 Source: patient Mode of arrival: ambulatory Limitations: no limitations - History of Present Illness Initial Comments: 68-year-old male patient presents to the emergency department today for evaluation of intermittent left foot pain. Patient states that this is been going on for a little over a week. Patient states that the pain worsens when he rests at night, states it feels like a spasm type pain to the foot. States that he goes along the bottom and up to the ankle. Patient states he feels that the leg is more swollen than usual. Patient states that he has tried applying Aspercreme, lidocaine cream, and using KT tape without much relief of symptoms. Patient does have an extensive medical history which includes myocardial infarction, renal disease, and diabetes. Patient does take Plavix for cardiac stenting. Denies history of blood clots. Patient recently did travel to [place] via airplane, he returned yesterday. Pain did start prior to his trip. Patient states he did have episode at the airport yesterday where he became chilled, and did have an episode of vomiting. Those symptoms have resolved. He denies any abdominal pain or diarrhea. Patient denies any recent rash, fever, shortness breath, chest pain, back pain, numbness, tingling, dizziness, weakness, hematuria, dysuria, urinary urgency, urinary frequency, headache, visual changes, or any other complaints. - Related Data Home Medications Medication Instructions Recorded Confirmed Allopurinol [Zyloprim] 100 mg PO DAILY 10/27/13 08/05/17 Aspirin EC [Ecotrin Low Dose] 81 mg PO DAILY 10/27/13 08/05/17 Ergocalciferol (Vitamin D2) 50,000 unit PO QMONTH 10/27/13 08/03/17 [Drisdol] Famotidine [Pepcid] 20 mg PO HS 10/27/13 08/05/17 Furosemide [Lasix] 40 mg PO DAILY 10/27/13 08/05/17 Metoprolol Tartrate [Lopressor] 50 mg PO QAM 10/27/13 08/05/17 Metoprolol Tartrate [Lopressor] 100 mg PO HS 10/27/13 08/05/17 Atorvastatin [Lipitor] 20 mg PO HS 12/30/16 08/05/17 Hydrochlorothiazide [Hydrodiuril] 12.5 mg PO HS 12/30/16 08/05/17 INSULIN LISPRO (HumaLOG) [humaLOG] 16 units SQ AC-BRKFST 12/30/16 08/05/17 INSULIN LISPRO (HumaLOG) [humaLOG] 30 units SQ AC-SUPPER 12/30/16 08/05/17 Insulin NPH Human Isophane 30 unit SQ HS 12/30/16 08/05/17 [NovoLIN N] Pioglitazone [Actos] 15 mg PO DAILY 12/30/16 08/05/17 Benazepril HCl 10 mg PO DAILY 07/13/17 08/05/17 amLODIPine [Norvasc] 10 mg PO DAILY 07/13/17 08/05/17 INSULIN LISPRO (HumaLOG) [humaLOG] 10 units SQ AC-LUNCH 08/03/17 08/05/17 Previous Rx's Medication Instructions Recorded Clopidogrel [Plavix] 75 mg PO DAILY #90 tab 07/15/17 Allergies Allergy/AdvReac Type Severity Reaction Status Date / Time No Known Allergies Allergy Verified 02/27/18 18:53 Review of Systems ROS Statement: Those systems with pertinent positive or pertinent negative responses have been documented in the HPI. ROS Other: All systems not noted in ROS Statement are negative. Past Medical History Past Medical History: Coronary Artery Disease (CAD), Diabetes Mellitus, GERD/ Reflux, Hyperlipidemia, Hypertension, Myocardial Infarction ([place]), Renal Disease Additional Past Medical History / Comment(s): Kidney stones; Renal insufficency - "UNDER CONTROL;" Last Myocardial Infarction Date:: 2009 History of Any Multi-Drug Resistant Organisms: None Reported Past Surgical History: Coronary Bypass/CABG, Heart Catheterization, Heart Catheterization With Stent Additional Past Surgical History / Comment(s): STENTS X3. HAD CABG 2009. C. CATH 07/01/17. Past Anesthesia/Blood Transfusion Reactions: No Reported Reaction Date of Last Stent Placement:: 07-14-17 Past Psychological History: No Psychological Hx Reported Smoking Status: Never smoker Past Alcohol Use History: Rare Past Drug Use History: None Reported - Past Family History Mother Family Medical History: CVA/TIA, Diabetes Mellitus Father Family Medical History: CVA/TIA, Myocardial Infarction ([place]) Additional Family Medical History / Comment(s): mother: htn, dm. General Exam Limitations: no limitations General appearance: alert, in no apparent distress, other (This is a well- developed, well-nourished adult male patient in no acute distress. Vital signs upon presentation are temperature 97.9F, pulse 94, respirations 18, blood pressure 142/78, pulse ox 100% on room air.) Eye exam: Present: normal appearance, PERRL, EOMI. Absent: scleral icterus, conjunctival injection, periorbital swelling ENT exam: Present: normal exam, normal oropharynx, mucous membranes moist Respiratory exam: Present: normal lung sounds bilaterally. Absent: respiratory distress, wheezes, rales, rhonchi, stridor Cardiovascular Exam: Present: regular rate, normal rhythm, normal heart sounds. Absent: systolic murmur, diastolic murmur, rubs, gallop, clicks GI/Abdominal exam: Present: soft, normal bowel sounds. Absent: distended, tenderness, guarding, rebound, rigid Extremities exam: Present: full ROM, tenderness (Tenderness over the left anterior leg), normal capillary refill, other (Patient has nonpitting edema to the bilateral lower extremities. There is some brownish discoloration consistent with venous insufficiency. Skin is warm and dry. Pulses to the left foot are nonpalpable. Pedal and posttibial pulse is found easily with doppler.). Absent: normal inspection, pedal edema, joint swelling, calf tenderness Neurological exam: Present: alert, oriented X3, CN II-XII intact Psychiatric exam: Present: normal affect, normal mood Skin exam: Present: warm, dry, intact, normal color. Absent: rash Course Vital Signs 02/27/18 18:53 Temperature 97.9 F Pulse Rate 94 Respiratory 18 Rate Blood Pressure 142/78 O2 Sat by Pulse 100 Oximetry Medical Decision Making - Medical Decision Making 68-year-old male patient presented the emergency department today with complaints of left ankle and foot pain and swelling. Physical examination did reveal nonpitting edema to the lower extremities bilaterally. Was able to find pedal and posttibial pulses using Doppler. Skin is warm and dry. No evidence of erythema or evidence of cellulitis or infection. No wounds. X-ray of the foot did reveal calcaneal spurring. Ultrasound of the left lower extremity showed no evidence for DVT. Patient does have history of diabetes. We did discuss muscle cramping and diabetic neuropathy as a cause for his symptoms. He does have an appointment with his primary care physician on Thursday to discuss symptoms. He is urged to keep this appointment. Return parameters were discussed in detail. He verbalizes understanding and agrees with this plan. - Lab Data Result diagrams: 02/27/18 19:33 02/27/18 19:33 Lab Results 02/27/18 02/27/18 02/27/18 Range/Units 19:33 19:33 20:08 WBC 7.9 (3.8-10.6) k/uL RBC 4.19 L (4.30-5.90) m/uL Hgb 13.1 (13.0-17.5) gm/dL Hct 39.8 (39.0-53.0) % MCV 95.0 (80.0-100.0) fL MCH 31.3 (25.0-35.0) pg MCHC 32.9 (31.0-37.0) g/dL RDW 14.8 (11.5-15.5) % Plt Count 180 (150-450) k/uL Neutrophils % 68 % Lymphocytes % 19 % Monocytes % 5 % Eosinophils % 6 % Basophils % 1 % Neutrophils # 5.3 (1.3-7.7) k/uL Lymphocytes # 1.5 (1.0-4.8) k/uL Monocytes # 0.4 (0-1.0) k/uL Eosinophils # 0.5 (0-0.7) k/uL Basophils # 0.1 (0-0.2) k/uL Sodium 139 (137-145) mmol/L Potassium 3.5 (3.5-5.1) mmol/L Chloride 104 (98-107) mmol/L Carbon Dioxide 25 (22-30) mmol/L Anion Gap 10 mmol/L BUN 28 H (9-20) mg/dL Creatinine 1.96 H (0.66-1.25) mg/dL Est GFR (CKD-EPI)AfAm 40 (>60 ml/min/1.73 sqM) Est GFR (CKD-EPI)NonAf 34 (>60 ml/min/1.73 sqM) Glucose 262 H (74-99) mg/dL Calcium 9.3 (8.4-10.2) mg/dL Magnesium 1.7 (1.6-2.3) mg/dL Total Bilirubin 0.5 (0.2-1.3) mg/dL AST 29 (17-59) U/L ALT 26 (21-72) U/L Alkaline Phosphatase 54 (38-126) U/L Total Protein 6.5 (6.3-8.2) g/dL Albumin 3.7 (3.5-5.0) g/dL Amylase 57 (30-110) U/L Lipase 84 (23-300) U/L Urine Color Yellow Urine Appearance Clear (Clear) Urine pH 5.5 (5.0-8.0) Ur Specific Wilsey 1.013 (1.001-1.035) Urine Protein 2+ H (Negative) Urine Glucose (UA) Trace H (Negative) Urine Ketones Negative (Negative) Urine Blood Negative (Negative) Urine Nitrite Negative (Negative) Urine Bilirubin Negative (Negative) Urine Urobilinogen <2.0 (<2.0) mg/dL Ur Leukocyte Esterase Negative (Negative) Urine WBC 1 (0-5) /hpf Hyaline Casts 5 H (0-2) /lpf Urine Mucus Rare H (None) /hpf - Radiology Data Radiology results: report reviewed, image reviewed 3 views of left foot are obtained. There is plantar calcaneal spur. There is vascular calcification. There is soft tissue swelling in the forefoot. I see no fracture or dislocation. Metatarsals appear intact. Impression by Dr. Montano shows soft tissue swelling. No fracture seen. Venous Doppler duplex of the left lower extremity was obtained. Report was reviewed in its entirety. Impression by Dr. Montano shows known evidence of deep venous thrombosis in the left leg. Disposition Clinical Impression: Left foot pain, Leg cramps Disposition: HOME SELF-CARE Condition: Good Instructions: Arthralgia (ED), Muscle Cramp (ED), Metatarsalgia (DC) Additional Instructions: Keep feet warm. Rest. Wear proper footwear. Follow-up with your primary care physician for recheck as soon as possible. Return immediately for any new, worsening, or concerning symptoms. Is patient prescribed a controlled substance at d/c from ED?: No Referrals: Sahil Carmona DO [Primary Care Provider] - 1-2 days Time of Disposition: 20:41
--- NOTE | 2018-02-27 19:52 | XR ---
EXAMINATION TYPE: XR foot complete LT DATE OF EXAM: 02/27/2018 COMPARISON: NONE HISTORY: Pain and swelling TECHNIQUE: 3 views FINDINGS: There is a plantar calcaneal spur. There is vascular calcification. There is soft tissue sw elling in the forefoot. I see no fracture nor dislocation. Metatarsals appear intact. IMPRESSION: Soft tissue swelling. No fracture seen.
[2018-02-27 19:54] LABS: Basophils # (A) 0.1 k/uL (0-0.2); Basophils % (A) 1 %; Eosinophils # (A) 0.5 k/uL (0-0.7); Eosinophils % (A) 6 %; HCT 39.8 % (39.0-53.0); HGB 13.1 gm/dL (13.0-17.5); Lymphocytes # (A) 1.5 k/uL (1.0-4.8); Lymphocytes % (A) 19 %; MCH 31.3 pg (25.0-35.0); MCHC 32.9 g/dL (31.0-37.0); Mean Platelet Volume 7.2; Monocytes # (A) 0.4 k/uL (0-1.0); Monocytes % (A) 5 %; Neutrophils # (A) 5.3 k/uL (1.3-7.7); Neutrophils % (A) 68 %; Platelet Count 180 k/uL (150-450); RBC 4.19 m/uL (4.30-5.90); RDW 14.8 % (11.5-15.5); WBC 7.9 k/uL (3.8-10.6)
[2018-02-27 19:56] LABS: Albumin 3.7 g/dL (3.5-5.0); Calcium 9.3 mg/dL (8.4-10.2); Magnesium 1.7 mg/dL (1.6-2.3); Potassium 3.5 mmol/L (3.5-5.1); Total Bilirubin 0.5 mg/dL (0.2-1.3); Total Protein 6.5 g/dL (6.3-8.2)
--- NOTE | 2018-02-27 20:08 | US ---
EXAMINATION TYPE: US venous doppler duplex LE LT DATE OF EXAM: 02/27/2018 7:09 PM COMPARISON: NONE CLINICAL HISTORY: Pain. left leg pain SIDE PERFORMED: left TECHNIQUE: The lower extremity deep venous system is examined utilizing real time linear array sonog nirmal with graded compression, doppler sonography and color-flow sonography. VESSELS IMAGED: External Iliac Vein (EIV) Common Femoral Vein Deep Femoral Vein Greater Saphenous Vein * Femoral Vein Popliteal Vein Small Saphenous Vein * Proximal Calf Veins (* superficial vessels) Left Leg: neg for LLE dvt IMPRESSION: No evidence of deep venous thrombosis in the left leg.
[2018-02-27 20:22] LABS: Appearance,Urine Clear (Clear); Bilirubin,Urine Negative (Negative); Blood,Urine Negative (Negative); Color,Urine Yellow; Glucose,Urine (UA) Trace (Negative); Hyaline Casts,Urine 5 /lpf (0-2); Ketones,Urine Negative (Negative); Leukocyte Esterase,Urine Negative (Negative); Mucus,Urine Rare /hpf; Nitrite,Urine Negative (Negative); PH, Urine 5.5 (5.0-8.0); Protein,Urine 2+ (Negative); Specific Gravity,Urine 1.013 (1.001-1.035); Urobilinogen,Urine <2.0 mg/dL (<2.0); WBC,Urine 1 /hpf (0-5)
== END 2018-02-27 21:08 | disposition home or self-care (01) ==
LOC: EC 18:47
DX: M79.672 Pain in left foot (principal); R25.2 Cramp and spasm; R11.10 Vomiting, unspecified; I25.10 Atherosclerotic heart disease of native coronary artery without angina pectoris; E11.9 Type 2 diabetes mellitus without complications; K21.9 Gastro-esophageal reflux disease without esophagitis; E78.5 Hyperlipidemia, unspecified; I10 Essential (primary) hypertension; I25.2 Old myocardial infarction; Z87.442 Personal history of urinary calculi; Z79.82 Long term (current) use of aspirin; Z79.4 Long term (current) use of insulin; Z79.02 Long term (current) use of antithrombotics/antiplatelets; Z95.5 Presence of coronary angioplasty implant and graft; Z95.1 Presence of aortocoronary bypass graft
CPT/HCPCS: 36415; 80053; 81001; 82150; 83690; 83735; 85025; 99284

== ENCOUNTER → 2018-05-12 | Outpatient (CLI) | payer MEDICARE ==
[2018-05-12 10:14] LABS: Basophils # (A) 0.1 k/uL (0-0.2); Basophils % (A) 1 %; Eosinophils # (A) 0.5 k/uL (0-0.7); Eosinophils % (A) 5 %; HCT 40.5 % (39.0-53.0); HGB 13.4 gm/dL (13.0-17.5); Lymphocytes # (A) 1.5 k/uL (1.0-4.8); Lymphocytes % (A) 16 %; MCH 31.5 pg (25.0-35.0); MCHC 33.1 g/dL (31.0-37.0); MCV 95.5 fL (80.0-100.0); Mean Platelet Volume 7.3; Monocytes # (A) 0.6 k/uL (0-1.0); Monocytes % (A) 6 %; Neutrophils # (A) 6.8 k/uL (1.3-7.7); Neutrophils % (A) 71 %; Platelet Count 263 k/uL (150-450); RBC 4.25 m/uL (4.30-5.90); RDW 14.1 % (11.5-15.5); WBC 9.6 k/uL (3.8-10.6)
[2018-05-12 10:29] LABS: Appearance,Urine Clear (Clear); Bilirubin,Urine Negative (Negative); Blood,Urine Negative (Negative); Color,Urine Yellow; Glucose,Urine (UA) Negative (Negative); Hyaline Casts,Urine 3 /lpf (0-2); Ketones,Urine Negative (Negative); Leukocyte Esterase,Urine Negative (Negative); Mucus,Urine Rare /hpf; Nitrite,Urine Negative (Negative); Protein,Urine 2+ (Negative); Specific Gravity,Urine 1.011 (1.001-1.035); Urobilinogen,Urine <2.0 mg/dL (<2.0); WBC,Urine <1 /hpf (0-5)
[2018-05-12 17:13] LABS: Iron Saturation 20.91 (15.00-50.00)
[2018-05-12 17:23] LABS: Vitamin D 25 Hydroxy 22.3 ng/mL (30.0-100.0)
[2018-05-12 19:36] LABS: Anion Gap 9.9 mmol/L (4.00-12.00); Carbon Dioxide 26.1 mmol/L (21.6-31.8); Magnesium 1.9 mg/dL (1.5-2.4); Phosphorus 4.2 mg/dL (2.4-5.1); Potassium 3.9 mmol/L (3.5-5.5); Uric Acid 6.7 mg/dL (3.7-8.7)
== END | disposition home or self-care (01) ==
LOC: LABWHC1 09:13
PROVIDERS: ATTEND Nurse Practitioner Family
DX: N18.3 Chronic kidney disease, stage 3 (moderate) (principal); D63.1 Anemia in chronic kidney disease; E55.9 Vitamin D deficiency, unspecified; N25.81 Secondary hyperparathyroidism of renal origin; M10.9 Gout, unspecified; N39.0 Urinary tract infection, site not specified
CPT/HCPCS: 36415; 80048; 81001; 82306; 82728; 83540; 83550; 83735; 83970; 84100; 84550; 85025

== ENCOUNTER → 2018-08-10 | Outpatient (CLI) | payer MEDICARE ==
[2018-08-10 11:06] LABS: Basophils # (A) 0.1 k/uL (0-0.2); Basophils % (A) 1 %; Eosinophils # (A) 0.4 k/uL (0-0.7); Eosinophils % (A) 4 %; HCT 41.9 % (39.0-53.0); HGB 13.7 gm/dL (13.0-17.5); Lymphocytes # (A) 1.4 k/uL (1.0-4.8); Lymphocytes % (A) 13 %; MCH 29.9 pg (25.0-35.0); MCHC 32.6 g/dL (31.0-37.0); MCV 91.5 fL (80.0-100.0); Mean Platelet Volume 8.1; Monocytes # (A) 0.6 k/uL (0-1.0); Monocytes % (A) 6 %; Neutrophils # (A) 7.9 k/uL (1.3-7.7); Neutrophils % (A) 75 %; Platelet Count 277 k/uL (150-450); RBC 4.58 m/uL (4.30-5.90); RDW 14.4 % (11.5-15.5); WBC 10.6 k/uL (3.8-10.6)
[2018-08-10 11:10] LABS: Appearance,Urine Clear (Clear); Bilirubin,Urine Negative (Negative); Blood,Urine Trace (Negative); Color,Urine Yellow; Glucose,Urine (UA) 1+ (Negative); Hyaline Casts,Urine 7 /lpf (0-2); Ketones,Urine Negative (Negative); Leukocyte Esterase,Urine Negative (Negative); Mucus,Urine Rare /hpf; Nitrite,Urine Negative (Negative); PH, Urine 6.5 (5.0-8.0); Protein,Urine 3+ (Negative); RBC,Urine 1 /hpf (0-5); Specific Gravity,Urine 1.015 (1.001-1.035); Urobilinogen,Urine <2.0 mg/dL (<2.0); WBC,Urine 1 /hpf (0-5)
[2018-08-10 16:27] LABS: Parathyroid Hormone Intact 142.9 pg/mL (14.0-72.0)
[2018-08-10 16:31] LABS: Iron Saturation 22.4 (15.00-50.00)
[2018-08-10 16:51] LABS: Anion Gap 7.4 mmol/L (4.00-12.00); Calcium 9.1 mg/dL (8.7-10.3); Carbon Dioxide 27.6 mmol/L (21.6-31.8); LDL Cholesterol,Calculated 63.6 mg/dL (0.0-131.0); Phosphorus 3.7 mg/dL (2.4-5.1); Uric Acid 4.8 mg/dL (3.7-8.7); VLDL Calculation 25.4 mg/dL (5.00-40.00)
[2018-08-10 17:15] LABS: Vitamin D 25 Hydroxy 24.3 ng/mL (30.0-100.0)
[2018-08-10 23:02] LABS: Hemoglobin A1C 7.1 % (4.0-6.0)
== END | disposition home or self-care (01) ==
LOC: LABWHC1 08:26
PROVIDERS: ATTEND Internal Medicine
DX: N39.0 Urinary tract infection, site not specified (principal); D63.1 Anemia in chronic kidney disease; N18.3 Chronic kidney disease, stage 3 (moderate); M10.9 Gout, unspecified; E55.9 Vitamin D deficiency, unspecified; E21.3 Hyperparathyroidism, unspecified; E11.65 Type 2 diabetes mellitus with hyperglycemia; E11.22 Type 2 diabetes mellitus with diabetic chronic kidney disease
CPT/HCPCS: 36415; 80048; 80061; 81001; 82306; 82728; 83036; 83540; 83550; 83735; 83970; 84100; 84550; 85025

== ENCOUNTER → 2018-11-23 | Outpatient (CLI) | payer MEDICARE ==
[2018-11-23 10:13] LABS: Basophils # (A) 0.1 k/uL (0-0.2); Basophils % (A) 1 %; Eosinophils # (A) 0.5 k/uL (0-0.7); Eosinophils % (A) 4 %; HCT 40.8 % (39.0-53.0); HGB 13.5 gm/dL (13.0-17.5); Lymphocytes # (A) 1.5 k/uL (1.0-4.8); Lymphocytes % (A) 14 %; MCH 30.3 pg (25.0-35.0); MCV 91.8 fL (80.0-100.0); Mean Platelet Volume 7.6; Monocytes # (A) 0.5 k/uL (0-1.0); Monocytes % (A) 5 %; Neutrophils # (A) 8.2 k/uL (1.3-7.7); Neutrophils % (A) 75 %; Platelet Count 303 k/uL (150-450); RBC 4.45 m/uL (4.30-5.90); RDW 14.7 % (11.5-15.5); WBC 10.9 k/uL (3.8-10.6)
[2018-11-23 15:40] LABS: Iron Saturation 25.1 (15.00-50.00)
[2018-11-23 15:47] LABS: Vitamin D 25 Hydroxy 20.2 ng/mL (30.0-100.0)
[2018-11-23 15:48] LABS: African American GFR (CKD) 38.6 (60.0-200.0); Albumin 3.9 g/dL (3.80-4.90); Anion Gap 9.5 mmol/L (4.00-12.00); BUN/Creat Ratio 11.5 Ratio (12.00-20.00); Calcium 8.7 mg/dL (8.7-10.3); Carbon Dioxide 26.5 mmol/L (21.6-31.8); Magnesium 1.7 mg/dL (1.5-2.4); Phosphorus 3.3 mg/dL (2.4-5.1); Uric Acid 5.8 mg/dL (3.7-8.7)
[2018-11-23 16:44] LABS: Hemoglobin A1C 7.8 % (4.0-6.0)
== END | disposition home or self-care (01) ==
LOC: LABWHC1 09:01
PROVIDERS: ATTEND Internal Medicine
DX: E55.9 Vitamin D deficiency, unspecified (principal); M10.9 Gout, unspecified; N39.0 Urinary tract infection, site not specified; N18.3 Chronic kidney disease, stage 3 (moderate); D63.1 Anemia in chronic kidney disease; E11.65 Type 2 diabetes mellitus with hyperglycemia
CPT/HCPCS: 36415; 80048; 82040; 82306; 82728; 83036; 83540; 83550; 83735; 83970; 84100; 84550; 85025

== ENCOUNTER → 2019-03-28 | Outpatient (CLI) | payer MEDICARE ==
--- NOTE | 2019-03-29 07:39 | XR ---
EXAMINATION TYPE: XR chest 2V DATE OF EXAM: 03/28/2019 COMPARISON: Prior chest x-ray 05/06/2010 HISTORY: Shortness of breath and cough TECHNIQUE: Frontal and lateral views of the chest are obtained. FINDINGS: Patient is post median sternotomy. There is blunting of the left costophrenic angle, animal care supervisor ior costophrenic sulcus. There is no focal air space opacity or pneumothorax seen. Prominent lung vo lumes suggest underlying COPD. There are coronary artery calcification suspected. The cardiac silhoue tte size is stable in appearance, borderline enlarged. The aorta is dense. The osseous structures ar e intact. IMPRESSION: Interval development of left pleural effusion and probable associated atelectasis, corre late to exclude pneumonia.
== END | disposition home or self-care (01) ==
LOC: RADXRMAIN 16:30
PROVIDERS: ATTEND Family Medicine
DX: R05 Cough (principal); R06.02 Shortness of breath
CPT/HCPCS: 71046

== ENCOUNTER → 2019-04-11 | Outpatient (CLI) | payer MEDICARE ==
[2019-04-11 12:32] LABS: Basophils # (A) 0.1 k/uL (0-0.2); Basophils % (A) 1 %; Eosinophils # (A) 0.2 k/uL (0-0.7); Eosinophils % (A) 2 %; HCT 43.1 % (39.0-53.0); HGB 14.3 gm/dL (13.0-17.5); Lymphocytes # (A) 1.4 k/uL (1.0-4.8); Lymphocytes % (A) 12 %; MCH 31.2 pg (25.0-35.0); MCHC 33.3 g/dL (31.0-37.0); MCV 93.7 fL (80.0-100.0); Mean Platelet Volume 8.9; Monocytes # (A) 0.5 k/uL (0-1.0); Monocytes % (A) 4 %; Neutrophils % (A) 82 %; Platelet Count 243 k/uL (150-450); RBC 4.59 m/uL (4.30-5.90); RDW 13.9 % (11.5-15.5); WBC 12.2 k/uL (3.8-10.6)
[2019-04-11 13:12] LABS: Appearance,Urine Clear (Clear); Bacteria,Urine Occasional /hpf; Bilirubin,Urine Negative (Negative); Blood,Urine Moderate (Negative); Color,Urine Yellow; Glucose,Urine (UA) 2+ (Negative); Hyaline Casts,Urine 14 /lpf (0-2); Ketones,Urine Negative (Negative); Leukocyte Esterase,Urine Negative (Negative); Mucus,Urine Rare /hpf; Nitrite,Urine Negative (Negative); Protein,Urine 4+ (Negative); RBC,Urine 18 /hpf (0-5); Specific Gravity,Urine 1.023 (1.001-1.035); Squamous Epithelial Cell,Urine 2 /hpf (0-4); Urobilinogen,Urine <2.0 mg/dL (<2.0); WBC,Urine 10 /hpf (0-5); White Blood Cell Casts,Urine 6 /lpf (0)
[2019-04-11 18:03] LABS: % Iron Saturation 39.5 (15.00-50.00); African American GFR (CKD) 27.9 (60.0-200.0); Albumin 3.4 g/dL (3.80-4.90); Anion Gap 10.9 mmol/L (4.00-12.00); BUN/Creat Ratio 12.69 Ratio (12.00-20.00); Calcium 8.7 mg/dL (8.7-10.3); Carbon Dioxide 27.1 mmol/L (21.6-31.8); Chol/HDL Ratio 3.58; LDL Cholesterol,Calculated 71.4 mg/dL (0.0-131.0); Magnesium 1.8 mg/dL (1.5-2.4); Non-African American GFR(CKD) 24.1 (60.0-200.0); Phosphorus 4.1 mg/dL (2.4-5.1); Potassium 3.4 mmol/L (3.5-5.5); Uric Acid 5.8 mg/dL (3.7-8.7); VLDL Calculation 31.6 mg/dL (5.00-40.00)
[2019-04-11 18:11] LABS: Ferritin 82.7 ng/mL (22.0-322.0)
[2019-04-11 20:41] LABS: Urine Creatinine 175.7 mg/dL
== END | disposition home or self-care (01) ==
LOC: LABWHC1 10:35
PROVIDERS: ATTEND Internal Medicine
DX: E83.39 Other disorders of phosphorus metabolism (principal); N25.81 Secondary hyperparathyroidism of renal origin; M10.9 Gout, unspecified; N39.0 Urinary tract infection, site not specified; D64.9 Anemia, unspecified; R80.9 Proteinuria, unspecified; N18.3 Chronic kidney disease, stage 3 (moderate); E11.65 Type 2 diabetes mellitus with hyperglycemia; N40.0 Benign prostatic hyperplasia without lower urinary tract symptoms; E11.22 Type 2 diabetes mellitus with diabetic chronic kidney disease
CPT/HCPCS: 36415; 80048; 80061; 81001; 82040; 82043; 82570; 82728; 83540; 83550; 83735; 83970; 84100; 84153; 84156; 84550; 85025

== ENCOUNTER → 2019-05-27 | Outpatient (CLI) | payer MEDICARE ==
--- NOTE | 2019-05-27 11:43 | XR ---
EXAMINATION TYPE: XR chest 2V DATE OF EXAM: 05/27/2019 COMPARISON: 03/28/2019 TECHNIQUE: PA and lateral views submitted. HISTORY: Shortness of breath FINDINGS: There is left lower lobe infiltrate and small effusion. Postsurgical change seen. No pneumothorax. Ri ght-sided subsegmental consolidation with tiny effusion. Heart is mildly prominent. No definite overt failure. Hypertrophic change of the spine. IMPRESSION: 1. Bilateral infiltrate and small effusion greater on the left. Correlate for pneumonia. No overt rhett lure mild central venous congestion not excluded
== END | disposition home or self-care (01) ==
LOC: RADXRMAIN 11:18
PROVIDERS: ATTEND Nurse Practitioner Family
DX: J90 Pleural effusion, not elsewhere classified (principal); R91.8 Other nonspecific abnormal finding of lung field
CPT/HCPCS: 71046

== ENCOUNTER 2019-07-18 14:33 | Inpatient (IN) | payer MEDICARE ==
[2019-07-18] MEDS ORDERED: IPRATROPIUM-ALBUTEROL 3 ML NEB INHALATION STA (15:21)
[2019-07-18] MEDS ORDERED: SODIUM CHLORIDE 0.9% 500 ML 500 ML IV STA (15:21)
--- NOTE | 2019-07-18 15:36 | ED ---
SOB HPI <Walter Benitez - Last Filed: 07/18/19 17:24> - General Source: patient Mode of arrival: ambulatory Limitations: no limitations <Ksenia Hernandez - Last Filed: 07/18/19 19:18> - General Chief Complaint: Shortness of Breath Stated Complaint: SOB, cough Time Seen by Provider: 07/18/19 15:04 - History of Present Illness Initial Comments: Patient is a 69-year-old male, with history of heart disease,CHF, diabetes, hypertension, renal disease, presenting to the emergency Department with complaints of shortness of breath, fatigue for 3 days. Patient's states that patient was recently admitted in [facility] for CHF exacerbation. They've returned from [place] approximately 3 weeks ago. He seemed to be doing well and then 3 days ago seemed to be having increasing shortness of breath, cough, fatigue. states the patient is not eating very much and is not wanting to move around very much. Patient denies chest pain, abdominal pain, nausea, vomiting, diarrhea. He does not normally wear oxygen at home. There are no other complaints at this time. Upon arrival to the ER, patient is febrile at 99.9, BP 125/81, pulse 74, 91% on room air. (Ksenia Hernandez) - Related Data Home Medications Medication Instructions Recorded Confirmed Allopurinol [Zyloprim] 200 mg PO DAILY 10/27/13 07/18/19 Aspirin EC [Ecotrin Low Dose] 81 mg PO DAILY 10/27/13 07/18/19 Ergocalciferol (Vitamin D2) 50,000 unit PO MO 10/27/13 07/18/19 [Drisdol] Famotidine [Pepcid] 20 mg PO DAILY 10/27/13 07/18/19 Atorvastatin [Lipitor] 20 mg PO HS 12/30/16 07/18/19 Carvedilol [Coreg] 25 mg PO BID 07/18/19 07/18/19 Furosemide [Lasix] 80 mg PO DAILY 07/18/19 07/18/19 Insulin Glargine,Hum.rec.anlog 30 unit SQ HS 07/18/19 07/18/19 [Lantus Solostar] Insulin Lispro [humaLOG Kwikpen] 15 unit SQ AC-TID 07/18/19 07/18/19 Nitroglycerin Sl Tabs [Nitrostat] 0.4 mg PO Q5M PRN 07/18/19 07/18/19 Potassium Chloride ER [K-Dur 10] 10 meq PO BID 07/18/19 07/18/19 hydrALAZINE HCL [Apresoline] 25 mg PO BID 07/18/19 07/18/19 Previous Rx's Medication Instructions Recorded Clopidogrel [Plavix] 75 mg PO DAILY #90 tab 07/15/17 Allergies Allergy/AdvReac Type Severity Reaction Status Date / Time No Known Allergies Allergy Verified 07/18/19 17:22 Review of Systems ROS Other: All systems not noted in ROS Statement are negative. <Walter Benitez - Last Filed: 07/18/19 17:24> ROS Other: All systems not noted in ROS Statement are negative. <Ksenia Hernandez - Last Filed: 07/18/19 19:18> ROS Statement: Those systems with pertinent positive or pertinent negative responses have been documented in the HPI. Past Medical History Past Medical History: Coronary Artery Disease (CAD), Diabetes Mellitus, GERD/Reflux, Hyperlipidemia, Hypertension, Myocardial Infarction ([place]), Renal Disease Additional Past Medical History / Comment(s): Kidney stones; Renal insufficency - "UNDER CONTROL;" Last Myocardial Infarction Date:: 2009 History of Any Multi-Drug Resistant Organisms: None Reported Past Surgical History: Coronary Bypass/CABG, Heart Catheterization, Heart Catheterization With Stent Additional Past Surgical History / Comment(s): STENTS X3. HAD CABG 2009. C. CATH 07/01/17. Past Anesthesia/Blood Transfusion Reactions: No Reported Reaction Date of Last Stent Placement:: 07-14-17 Past Psychological History: No Psychological Hx Reported Smoking Status: Never smoker Past Alcohol Use History: Rare Past Drug Use History: None Reported - Past Family History Mother Family Medical History: CVA/TIA, Diabetes Mellitus Father Family Medical History: CVA/TIA, Myocardial Infarction ([place]) Additional Family Medical History / Comment(s): mother: htn, dm. <Ksenia Hernandez - Last Filed: 07/18/19 19:18> General Exam Limitations: no limitations <Ksenia Hernandez - Last Filed: 07/18/19 19:18> - General Exam Comments Initial Comments: GENERAL: Patient looks fatigued, slightly diaphoretic, and in no acute distress. HEAD: Atraumatic, normocephalic. EYES: Pupils equal round and reactive to light, extraocular movements intact, sclera anicteric, conjunctiva are normal. ENT: TMs normal, nares patent, oropharynx clear without exudates. Moist mucous membranes. NECK: Normal range of motion, supple without lymphadenopathy or JVD. LUNGS: Decreased sounds bilaterally, No wheezes rales or rhonchi. HEART: Regular rate and rhythm without murmurs, rubs or gallops. ABDOMEN: Soft, nontender, normoactive bowel sounds. No guarding, no rebound. No masses appreciated. : Deferred EXTREMITIES: Bilateral lower leg edema. Normal range of motion. No clubbing or cyanosis. NEUROLOGICAL: Normal speech, normal gait. PSYCH: Normal mood, normal affect. SKIN: Warm, Dry, normal turgor, no rashes or lesions noted. (Ksenia Hernandez) Course <Walter Benitez - Last Filed: 07/18/19 17:24> Vital Signs 07/18/19 07/18/19 07/18/19 14:51 15:46 16:00 Temperature 99.9 F H Pulse Rate 74 78 Respiratory 16 22 24 Rate Blood Pressure 125/81 126/99 O2 Sat by Pulse 91 L 97 Oximetry 07/18/19 07/18/19 07/18/19 16:29 16:40 17:00 Temperature Pulse Rate 72 76 75 Respiratory 22 Rate Blood Pressure 145/76 O2 Sat by Pulse 99 Oximetry 07/18/19 07/18/19 07/18/19 17:38 18:00 19:00 Temperature 98.7 F Pulse Rate 69 66 66 Respiratory 18 21 21 Rate Blood Pressure 140/81 140/81 136/75 O2 Sat by Pulse 100 99 98 Oximetry - Reevaluation(s) Reevaluation #1: 07/18/19 17:24 PA supervision: I pursued a [id number] evaluation the patient did present with complaints of shortness of breath he had a fever in the office today concern for pneumonia he does have evidence pneumonia as well as CHF renal insufficiency. I did discuss the findings with him and his was present. Exam is consistent with the above. I did discuss the case with Dr. Carmona. Cardiology and pulmonary medicine will be consulted. (Walter Benitez) Medical Decision Making - Lab Data Result diagrams: 07/18/19 15:41 07/18/19 15:41 <Walter Benitez - Last Filed: 07/18/19 17:24> - Lab Data Result diagrams: 07/18/19 15:41 07/18/19 15:41 <Ksenia Hernandez - Last Filed: 07/18/19 19:18> - Medical Decision Making Patient is a 69-year-old male presenting with cough, dyspnea, fever 3 days. He arrived febrile, hypoxic at 91%. On 3 L he is at 97%. Patient looks fatigued on exam, decreased breath sounds bilaterally. Lab work shows leukocytosis of 14.1, lactic acid is 2.3. BUN and creatinine are also elevated from baseline at 50, 3.41. BNP is 24,500, troponin is elevated 0.283. Influenza is negative. Chest x-ray shows progressive consolidation and pleural effusion on the left correlate for pneumonia. Patient will be admitted for CHF, pneumonia, elevated troponin. Patient was tested for COVID19 virus and is pending at this time. Patient will be placed on antibiotics, Lasix, when necessary breathing treatments. Patient and patient's is in agreement with this plan of care. Case was discussed with Dr. Carmona who is in agreement with this admission. 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 Patient was discussed with Dr. Benitez who agrees this plan of care. (Ksenia Hernandez) - Lab Data Lab Results 07/18/19 07/18/19 07/18/19 Range/Units 15:41 15:41 15:41 WBC 14.1 H (3.8-10.6) k/uL RBC 3.38 L (4.30-5.90) m/uL Hgb 10.8 L (13.0-17.5) gm/dL Hct 33.2 L (39.0-53.0) % MCV 98.2 (80.0-100.0) fL MCH 31.9 (25.0-35.0) pg MCHC 32.5 (31.0-37.0) g/dL RDW 14.0 (11.5-15.5) % Plt Count 237 (150-450) k/uL Neutrophils % 88 % Lymphocytes % 6 % Monocytes % 6 % Eosinophils % 0 % Basophils % 0 % Neutrophils # 12.4 H (1.3-7.7) k/uL Lymphocytes # 0.8 L (1.0-4.8) k/uL Monocytes # 0.8 (0-1.0) k/uL Eosinophils # 0.0 (0-0.7) k/uL Basophils # 0.0 (0-0.2) k/uL PT 10.5 (9.0-12.0) sec INR 1.0 (<1.2) APTT 22.2 (22.0-30.0) sec Sodium 143 (137-145) mmol/L Potassium 3.7 (3.5-5.1) mmol/L Chloride 107 (98-107) mmol/L Carbon Dioxide 24 (22-30) mmol/L Anion Gap 12 mmol/L BUN 50 H (9-20) mg/dL Creatinine 3.41 H (0.66-1.25) mg/dL Est GFR (CKD-EPI)AfAm 20 (>60 ml/min/1.73 sqM) Est GFR (CKD-EPI)NonAf 17 (>60 ml/min/1.73 sqM) Glucose 131 H (74-99) mg/dL Lactic Ac Sepsis Rflx Plasma Lactic Acid Marcus (0.7-2.0) mmol/L Calcium 8.8 (8.4-10.2) mg/dL Magnesium 2.2 (1.6-2.3) mg/dL Total Bilirubin 1.2 (0.2-1.3) mg/dL AST 34 (17-59) U/L ALT 22 (4-49) U/L Alkaline Phosphatase 89 (38-126) U/L Troponin I (0.000-0.034) ng/mL NT-Pro-B Natriuret Pep pg/mL Total Protein 5.9 L (6.3-8.2) g/dL Albumin 3.1 L (3.5-5.0) g/dL Influenza Type A RNA (Not Detectd) Influenza Type B (PCR) (Not Detectd) 07/18/19 07/18/19 07/18/19 Range/Units 15:41 15:41 15:41 WBC (3.8-10.6) k/uL RBC (4.30-5.90) m/uL Hgb (13.0-17.5) gm/dL Hct (39.0-53.0) % MCV (80.0-100.0) fL MCH (25.0-35.0) pg MCHC (31.0-37.0) g/dL RDW (11.5-15.5) % Plt Count (150-450) k/uL Neutrophils % % Lymphocytes % % Monocytes % % Eosinophils % % Basophils % % Neutrophils # (1.3-7.7) k/uL Lymphocytes # (1.0-4.8) k/uL Monocytes # (0-1.0) k/uL Eosinophils # (0-0.7) k/uL Basophils # (0-0.2) k/uL PT (9.0-12.0) sec INR (<1.2) APTT (22.0-30.0) sec Sodium (137-145) mmol/L Potassium (3.5-5.1) mmol/L Chloride (98-107) mmol/L Carbon Dioxide (22-30) mmol/L Anion Gap mmol/L BUN (9-20) mg/dL Creatinine (0.66-1.25) mg/dL Est GFR (CKD-EPI)AfAm (>60 ml/min/1.73 sqM) Est GFR (CKD-EPI)NonAf (>60 ml/min/1.73 sqM) Glucose (74-99) mg/dL Lactic Ac Sepsis Rflx Plasma Lactic Acid Marcus 2.3 H* (0.7-2.0) mmol/L Calcium (8.4-10.2) mg/dL Magnesium (1.6-2.3) mg/dL Total Bilirubin (0.2-1.3) mg/dL AST (17-59) U/L ALT (4-49) U/L Alkaline Phosphatase (38-126) U/L Troponin I 0.283 H* (0.000-0.034) ng/mL NT-Pro-B Natriuret Pep 76466 pg/mL Total Protein (6.3-8.2) g/dL Albumin (3.5-5.0) g/dL Influenza Type A RNA (Not Detectd) Influenza Type B (PCR) (Not Detectd) 07/18/19 07/18/19 Range/Units 15:41 16:06 WBC (3.8-10.6) k/uL RBC (4.30-5.90) m/uL Hgb (13.0-17.5) gm/dL Hct (39.0-53.0) % MCV (80.0-100.0) fL MCH (25.0-35.0) pg MCHC (31.0-37.0) g/dL RDW (11.5-15.5) % Plt Count (150-450) k/uL Neutrophils % % Lymphocytes % % Monocytes % % Eosinophils % % Basophils % % Neutrophils # (1.3-7.7) k/uL Lymphocytes # (1.0-4.8) k/uL Monocytes # (0-1.0) k/uL Eosinophils # (0-0.7) k/uL Basophils # (0-0.2) k/uL PT (9.0-12.0) sec INR (<1.2) APTT (22.0-30.0) sec Sodium (137-145) mmol/L Potassium (3.5-5.1) mmol/L Chloride (98-107) mmol/L Carbon Dioxide (22-30) mmol/L Anion Gap mmol/L BUN (9-20) mg/dL Creatinine (0.66-1.25) mg/dL Est GFR (CKD-EPI)AfAm (>60 ml/min/1.73 sqM) Est GFR (CKD-EPI)NonAf (>60 ml/min/1.73 sqM) Glucose (74-99) mg/dL Lactic Ac Sepsis Rflx Y Plasma Lactic Acid Marcus (0.7-2.0) mmol/L Calcium (8.4-10.2) mg/dL Magnesium (1.6-2.3) mg/dL Total Bilirubin (0.2-1.3) mg/dL AST (17-59) U/L ALT (4-49) U/L Alkaline Phosphatase (38-126) U/L Troponin I (0.000-0.034) ng/mL NT-Pro-B Natriuret Pep pg/mL Total Protein (6.3-8.2) g/dL Albumin (3.5-5.0) g/dL Influenza Type A RNA Not Detected (Not Detectd) Influenza Type B (PCR) Not Detected (Not Detectd) - EKG Data EKG Comments: Ventricular rate 74, CA interval 144, QTC 444. Normal sinus rhythm. Possible left atrial enlargement. No acute ST segment changes. Similar to previous and 08/06/2017. (Ksenia Hernandez) Disposition <Walter Benitez - Last Filed: 07/18/19 17:24> Is patient prescribed a controlled substance at d/c from ED?: No Decision Date: 07/18/19 Decision Time: 17:00 <Ksenia Hernandez - Last Filed: 07/18/19 19:18> Clinical Impression: Congestive heart failure, Pneumonia, Renal failure (ARF), acute on chronic Disposition: ADMITTED IP TO THIS HOSP Condition: Good Referrals: Sahil Carmona DO [Primary Care Provider] - 1-2 days
[2019-07-18] MEDS ORDERED: ACETAMINOPHEN TAB 325 MG TAB PO STA (15:48)
[2019-07-18 16:01] LABS: Basophils % (A) 0 %; Eosinophils % (A) 0 %; HCT 33.2 % (39.0-53.0); HGB 10.8 gm/dL (13.0-17.5); Lymphocytes # (A) 0.8 k/uL (1.0-4.8); Lymphocytes % (A) 6 %; MCH 31.9 pg (25.0-35.0); MCHC 32.5 g/dL (31.0-37.0); MCV 98.2 fL (80.0-100.0); Mean Platelet Volume 9.2; Monocytes # (A) 0.8 k/uL (0-1.0); Monocytes % (A) 6 %; Neutrophils # (A) 12.4 k/uL (1.3-7.7); Neutrophils % (A) 88 %; Platelet Count 237 k/uL (150-450); RBC 3.38 m/uL (4.30-5.90); WBC 14.1 k/uL (3.8-10.6)
[2019-07-18 16:05] LABS: Albumin 3.1 g/dL (3.5-5.0); Calcium 8.8 mg/dL (8.4-10.2); Magnesium 2.2 mg/dL (1.6-2.3); Potassium 3.7 mmol/L (3.5-5.1); Total Bilirubin 1.2 mg/dL (0.2-1.3); Total Protein 5.9 g/dL (6.3-8.2)
[2019-07-18 16:12] LABS: Partial Thromboplastin Time 22.2 sec (22.0-30.0); Prothrombin Time 10.5 sec (9.0-12.0)
--- NOTE | 2019-07-18 16:12 | XR ---
EXAMINATION TYPE: XR chest 2V DATE OF EXAM: 07/18/2019 COMPARISON: 05/27/2019 TECHNIQUE: PA and lateral views submitted. HISTORY: Difficulty breathing FINDINGS: Left-sided consolidation and small effusion. Postoperative change and interstitial pattern. No pneumo thorax. Hyperinflation suggests COPD. Degenerative change of the spine. IMPRESSION: 1. Progressive consolidation and pleural effusion on the left. Correlate for pneumonia otherwise cons ider asymmetric venous congestion.
[2019-07-18] MEDS ORDERED: AZITHROMYCIN 500 MG in SODIUM CHLORIDE 0.9% 250 ML IVPB STA (16:59)
[2019-07-18] MEDS: FUROSEMIDE 10 MG/ML 4 ML VIAL IV SCH (17:37)
[2019-07-18] MEDS: ALBUTEROL NEBULIZED 2.5 MG/3 ML INHALATION SCH (20:17)
[2019-07-18 20:57] LABS: Glucose,Whole Blood 112 mg/dL (75-99)
[2019-07-19] MEDS: FUROSEMIDE 10 MG/ML 4 ML VIAL IV SCH ×3 (04:50→23:33)
[2019-07-19 07:52] LABS: Glucose,Whole Blood 90 mg/dL (75-99)
--- NOTE | 2019-07-19 08:11 | XR ---
EXAMINATION TYPE: XR chest 1V DATE OF EXAM: 07/19/2019 COMPARISON: Prior chest x-ray 07/18/2019 HISTORY: Pneumonia TECHNIQUE: Single frontal view of the chest is obtained. FINDINGS: There is increasing opacity at the right lung base, within the left lung. Technique is api ga lordotic. No evident pneumothorax. Left heart is obscured, hemidiaphragm is also not seen. Centra l vascularity is prominent. Patient is post median sternotomy. There may be underlying COPD, prominen t lung volumes IMPRESSION: Progression in airspace disease and/or pleural fluid. Correlate for pneumonia, atypical congestive heart failure, follow-up to resolution.
[2019-07-19 09:12] LABS: Calcium 8.3 mg/dL (8.4-10.2); Magnesium 2.3 mg/dL (1.6-2.3); Potassium 3.5 mmol/L (3.5-5.1)
[2019-07-19] MEDS ORDERED: POTASSIUM CHLORIDE ER 20 MEQ TAB.ER PO STA (09:20)
--- NOTE | 2019-07-19 09:21 | P.NPCON ---
History of Present Illness - Reason for Consult acute renal failure, chronic renal failure - History of Present Illness Reason for consultation: Acute kidney injury on chronic kidney disease History of present illness: Patient is a 69-year-old male seen in renal consultation for acute kidney injury on chronic kidney disease. Patient has chronic kidney disease stage III with baseline creatinine in the range of 1.6-1.8 secondary to diabetic kidney disease and nephrosclerosis. However over the last year his renal function has deteriorated. In April 2019 his creatinine was 2.6. Patient states he returned from [place] about 3 weeks ago. While in [place], he was hospitalized for CHF exacerbation. He's currently taking Lasix 80 mg orally once daily. Patient came to the hospital due to generalized weakness. He also admits to a cough with yellow sputum. No vomiting or diarrhea. No chest pain. He does have long-standing history of diabetes mellitus. Patient's creatinine on admission was 3.41. He is currently maintained on Lasix 40 mg IV twice daily. He admits to good urine output. Denies any hematuria or dysuria. Hemodynamically stable. Denies use of nonsteroidals. His temperature was 99.9F on admission but has been afebrile since. No abdominal pain. Vital signs are stable. General: The patient appeared well nourished and normally developed. HEENT: Head exam is unremarkable. Neck is without jugular venous distension. LUNGS: Breath sounds decreased. HEART: Rate and Rhythm are regular. First and second heart sounds normal. No murmurs, rubs or gallops. ABDOMEN: Abdominal exam reveals normal bowel sounds. Non-tender and non- distended. No evidence of peritonitis. EXTREMITITES: 1+ edema. Chronic changes noted. Past Medical History Past Medical History: Coronary Artery Disease (CAD), Diabetes Mellitus, GERD/Reflux, Hyperlipidemia, Hypertension, Myocardial Infarction ([place]), Renal Disease Additional Past Medical History / Comment(s): Kidney stones; Renal insufficency - "UNDER CONTROL;" Last Myocardial Infarction Date:: 2009 History of Any Multi-Drug Resistant Organisms: None Reported Past Surgical History: Coronary Bypass/CABG, Heart Catheterization, Heart Catheterization With Stent Additional Past Surgical History / Comment(s): STENTS X3. HAD CABG 2009. C. CATH 07/01/17. Past Anesthesia/Blood Transfusion Reactions: No Reported Reaction Date of Last Stent Placement:: 07-14-17 Past Psychological History: No Psychological Hx Reported Smoking Status: Never smoker Past Alcohol Use History: Rare Past Drug Use History: None Reported - Past Family History Mother Family Medical History: CVA/TIA, Diabetes Mellitus Father Family Medical History: CVA/TIA, Myocardial Infarction ([place]) Additional Family Medical History / Comment(s): mother: htn, dm. Medications and Allergies Home Medications Medication Instructions Recorded Confirmed Type Allopurinol [Zyloprim] 200 mg PO DAILY 10/27/13 07/18/19 History Aspirin EC [Ecotrin Low Dose] 81 mg PO DAILY 10/27/13 07/18/19 History Ergocalciferol (Vitamin D2) 50,000 unit PO MO 10/27/13 07/18/19 History [Drisdol] Famotidine [Pepcid] 20 mg PO DAILY 10/27/13 07/18/19 History Atorvastatin [Lipitor] 20 mg PO HS 12/30/16 07/18/19 History Clopidogrel [Plavix] 75 mg PO DAILY #90 tab 07/15/17 07/18/19 Rx Carvedilol [Coreg] 25 mg PO BID 07/18/19 07/18/19 History Furosemide [Lasix] 80 mg PO DAILY 07/18/19 07/18/19 History Insulin Glargine,Hum.rec.anlog 30 unit SQ HS 07/18/19 07/18/19 History [Lantus Solostar] Insulin Lispro [humaLOG Kwikpen] 15 unit SQ AC-TID 07/18/19 07/18/19 History Nitroglycerin Sl Tabs [Nitrostat] 0.4 mg PO Q5M PRN 07/18/19 07/18/19 History Potassium Chloride ER [K-Dur 10] 10 meq PO BID 07/18/19 07/18/19 History hydrALAZINE HCL [Apresoline] 25 mg PO BID 07/18/19 07/18/19 History Allergies Allergy/AdvReac Type Severity Reaction Status Date / Time No Known Allergies Allergy Verified 07/18/19 17:22 Physical Exam Vitals: Vital Signs Temp Pulse Pulse Resp BP BP Pulse Ox 07/19/19 04:45 97.8 F 108 H 16 158/75 98 07/18/19 22:55 97 F L 63 20 151/69 94 L 07/18/19 20:00 57 L 22 130/69 97 07/18/19 19:00 66 21 136/75 98 07/18/19 18:00 66 21 140/81 99 07/18/19 17:38 98.7 F 69 18 140/81 100 07/18/19 17:00 75 22 145/76 99 07/18/19 16:40 76 07/18/19 16:29 72 07/18/19 16:00 78 24 126/99 97 07/18/19 15:46 22 07/18/19 14:51 99.9 F H 74 16 125/81 91 L Intake and Output 07/18/19 07/19/19 07/19/19 22:59 06:59 14:59 Intake Total 100 Output Total 1 250 Balance 99 -250 Intake: Oral 100 Output: Urine 250 Urine/Stool Mix 1 Other: Voiding Method Toilet Weight 109.769 kg Results - Lab Results Most recent lab results Calcium 8.8 mg/dL (8.4-10.2) 07/18/19 15:41 Magnesium 2.2 mg/dL (1.6-2.3) 07/18/19 15:41 07/18/19 15:41 07/18/19 15:41 Assessment and Plan Plan: Assessment: 1. Acute kidney injury mostly prerenal secondary to cardiorenal syndrome. Creatinine 3.41 on admission and is 3.53 today. Rule out urinary retention. 2. Chronic kidney disease stage III with baseline creatinine 1.6-1.8 secondary to diabetic kidney disease. Over the last year his renal function has deteriorated. Creatinine in April 2019 was 2.6. 3. Volume overload. 4. History of coronary artery disease status post stenting. 5. Insulin-dependent diabetes mellitus. 6. Hypertension with chronic kidney disease. 7. Hypokalemia secondary to diuresis. Magnesium normal. Plan: Maintain IV Lasix 40 mg twice daily. Check postvoid residual. Follow-up echocardiogram and chest ultrasound. Replace potassium. 40 mEq today. Thank you for the consultation. I will continue to follow the patient with you during his hospital stay.
[2019-07-19] MEDS ORDERED: NITROGLYCERIN SL TABS 0.4 MG TAB SUBLINGUAL PRN (09:36)
[2019-07-19] MEDS ORDERED: HEPARIN SODIUM,PORCINE 5,000 UNIT/ML 1 ML VIAL SQ SCH (09:45)
[2019-07-19] MEDS: ALBUTEROL NEBULIZED 2.5 MG/3 ML INHALATION SCH ×4 (10:09→20:35)
--- NOTE | 2019-07-19 10:44 | P.CRDCN ---
History of Present Illness History of present illness: HISTORY OF PRESENTING ILLNESS This is a pleasant 69-year-old male past medical history significant for coronary artery disease status post bypass grafting and subsequent PCI of the OM and distal RCA occlusion of SVG to , OM1, OM 2 and OM 3 and a patent SVG to RCA and AGUILLON to LAD, hypertension, dyslipidemia, diabetes mellitus and chronic diastolic heart failure. He follows in the office with her Skaff. We have been asked to see in consultation for heart failure, elevated troponin and pneumonia. He is seen and examined sitting up in bed in no acute distress. He is maintaining oxygen saturation on room air. He states he has been increasingly short of breath for the previous one to 2 weeks. Approximately 3 weeks ago he was in [place] on vacation and had to be hospitalized secondary to an exacerbation of heart failure. Initially upon discharge she felt better and then his symptoms started to return in the previous one week. He states he is short of breath all the time that is worsened by exertion or activity. He denies any symptoms of chest discomfort, dizziness or palpitations. He was given Lasix and started on IV antibiotics in the emergency department and does seem to be feeling mildly better most recent echocardiogram obtained in the office November 2018 reveals preserved LV systolic function with ejection fraction 55%, hypokinesia of the inferior wall at the base, grade 1 diastolic dysfunction, mild MR. DIAGNOSTICS EKG reveals sinus mechanism, poor R-wave progression and evidence of old inferior an anterior wall WI. Chest xray on admission reveals progressive consolidation and pleural effusion on the left. Repeat today reveals an increasing opacity at the right lung base with central vascularity prominence and underlying COPD. X-ray shows significant progression of left pleural effusion. Laboratory reviewed, WBC 14.1, hemoglobin 10.8, platelets 237, sodium 143, potassium 3.7, creatinine 3.41 with a GFR of 17, lactic acid 2.3 on admission repeat 0.9, magnesium 2.2, troponin 0.283 and 0.214 and NT proBNP 24,500. He is negative for influenza A and B. Covid19 is pending. Current cardiac medications include aspirin 81 mg daily, atorvastatin 20 mg daily, carvedilol 25 mg twice a day, Plavix 75 mg daily, Lasix 80 mg daily and hydralazine 25 mg twice a day. REVIEW OF SYSTEMS At the time of my exam: CONSTITUTIONAL: Denies fever or chills. CARDIOVASCULAR: Denies chest pain, shortness of breath, orthopnea, PND or palpitations. RESPIRATORY: Denies cough. GASTROINTESTINAL: Denies abdominal pain, diarrhea, constipation, nausea or v omiting. MUSCULOSKELETAL: Denies myalgias. NEUROLOGIC: Denies numbness, tingling or weakness. ENDOCRINE: Denies fatigue, weight change, polydipsia or polyurina. GENITOURINARY: Denies burning, hematuria or urgency with micturation. HEMATOLOGIC: Denies history of anemia or bleeding. PHYSICAL EXAMINATION Blood pressure 158/75 heart rate 108 afebrile and maintaining oxygen saturation on nasal cannula. CONSTITUTIONAL: No apparent distress. HEENT: Head is normocephalic. Pupils are equal, round. Sclerae anicteric. Mucous membranes of the mouth are moist. No JVD. No carotid bruit. CHEST EXAMINATION: Diminished bilaterally, rales at the left lung base, no wheezes or rhonchi. No chest wall tenderness is noted on palpation or with deep breathing. HEART EXAMINATION: Regular rate and rhythm. S1, S2 heard. Systolic ejection murmur at the left sternal, no gallops or rub. ABDOMEN: Soft, nontender. Positive bowel sounds. EXTREMITIES: 2+ peripheral pulses, 1+ bilateral lower extremity pitting edema, erythematous suggestive of chronic venous stasis and no calf tenderness. NEUROLOGIC EXAMINATION: Patient is awake, alert and oriented x3. ASSESSMENT Acute on chronic diastolic heart failure Acute on chronic renal failure Lactic acidosis Leukocytosis Pneumonia, sizable increasing left pleural effusion Hypertension Dyslipidemia Coronary artery disease s/p bypass grafting and subsequent PCI of [place] vessels Obesity, BMI 34 PLAN Continue IV diuresis as recommended by nephrology. Resume carvedilol. Continue aspirin, atorvastatin, Plavix and hydralazine as previously ordered. Follow renal function and electrolytes in the morning. Document accurate intake and output along with daily weights. Echocardiogram has been obtained and will be reviewed. May require thoracentesis pending chest ultrasound results. Pulmonary is following. Further recommendations to follow based on clinical course. Thank you kindly for this consultation. Nurse Practitioner note has been reviewed, I agree with a documented findings and plan of care. Patient was seen and examined. Past Medical History Past Medical History: Coronary Artery Disease (CAD), Diabetes Mellitus, GERD/Reflux, Hyperlipidemia, Hypertension, Myocardial Infarction ([place]), Renal Disease Additional Past Medical History / Comment(s): Kidney stones; Renal insufficency - "UNDER CONTROL;" Last Myocardial Infarction Date:: 2009 History of Any Multi-Drug Resistant Organisms: None Reported Past Surgical History: Coronary Bypass/CABG, Heart Catheterization, Heart Catheterization With Stent Additional Past Surgical History / Comment(s): STENTS X3. HAD CABG 2009. C. C ATH 07/01/17. Past Anesthesia/Blood Transfusion Reactions: No Reported Reaction Date of Last Stent Placement:: 07-14-17 Past Psychological History: No Psychological Hx Reported Smoking Status: Never smoker Past Alcohol Use History: Rare Past Drug Use History: None Reported - Past Family History Mother Family Medical History: CVA/TIA, Diabetes Mellitus Father Family Medical History: CVA/TIA, Myocardial Infarction ([place]) Additional Family Medical History / Comment(s): mother: htn, dm. Medications and Allergies Home Medications Medication Instructions Recorded Confirmed Type Allopurinol [Zyloprim] 200 mg PO DAILY 10/27/13 07/18/19 History Aspirin EC [Ecotrin Low Dose] 81 mg PO DAILY 10/27/13 07/18/19 History Ergocalciferol (Vitamin D2) 50,000 unit PO MO 10/27/13 07/18/19 History [Drisdol] Famotidine [Pepcid] 20 mg PO DAILY 10/27/13 07/18/19 History Atorvastatin [Lipitor] 20 mg PO HS 12/30/16 07/18/19 History Clopidogrel [Plavix] 75 mg PO DAILY #90 tab 07/15/17 07/18/19 Rx Carvedilol [Coreg] 25 mg PO BID 07/18/19 07/18/19 History Furosemide [Lasix] 80 mg PO DAILY 07/18/19 07/18/19 History Insulin Glargine,Hum.rec.anlog 30 unit SQ HS 07/18/19 07/18/19 History [Lantus Solostar] Insulin Lispro [humaLOG Kwikpen] 15 unit SQ AC-TID 07/18/19 07/18/19 History Nitroglycerin Sl Tabs [Nitrostat] 0.4 mg PO Q5M PRN 07/18/19 07/18/19 History Potassium Chloride ER [K-Dur 10] 10 meq PO BID 07/18/19 07/18/19 History hydrALAZINE HCL [Apresoline] 25 mg PO BID 07/18/19 07/18/19 History Allergies Allergy/AdvReac Type Severity Reaction Status Date / Time No Known Allergies Allergy Verified 07/18/19 17:22 Physical Exam Vitals: Vital Signs Temp Pulse Pulse Resp BP BP Pulse Ox 07/19/19 04:45 97.8 F 108 H 16 158/75 98 07/18/19 22:55 97 F L 63 20 151/69 94 L 07/18/19 20:00 57 L 22 130/69 97 07/18/19 19:00 66 21 136/75 98 07/18/19 18:00 66 21 140/81 99 07/18/19 17:38 98.7 F 69 18 140/81 100 07/18/19 17:00 75 22 145/76 99 07/18/19 16:40 76 07/18/19 16:29 72 07/18/19 16:00 78 24 126/99 97 07/18/19 15:46 22 07/18/19 14:51 99.9 F H 74 16 125/81 91 L Intake and Output 07/18/19 07/19/19 07/19/19 22:59 06:59 14:59 Intake Total 100 Output Total 1 250 Balance 99 -250 Intake: Oral 100 Output: Urine 250 Urine/Stool Mix 1 Other: Voiding Method Toilet Weight 109.769 kg Results 07/18/19 15:41 07/19/19 08:25 Cardiac Enzymes 07/18/19 07/18/19 07/19/19 Range/Units 15:41 15:41 08:25 AST 34 (17-59) U/L Troponin I 0.283 H* 0.214 H* (0.000-0.034) ng/mL Coagulation 07/18/19 Range/Units 15:41 PT 10.5 (9.0-12.0) sec APTT 22.2 (22.0-30.0) sec CBC 07/18/19 Range/Units 15:41 WBC 14.1 H (3.8-10.6) k/uL RBC 3.38 L (4.30-5.90) m/uL Hgb 10.8 L (13.0-17.5) gm/dL Hct 33.2 L (39.0-53.0) % Plt Count 237 (150-450) k/uL Comprehensive Metabolic Panel 07/18/19 07/19/19 Range/Units 15:41 08:25 Sodium 143 145 (137-145) mmol/L Potassium 3.7 3.5 (3.5-5.1) mmol/L Chloride 107 110 H (98-107) mmol/L Carbon Dioxide 24 23 (22-30) mmol/L BUN 50 H 51 H (9-20) mg/dL Creatinine 3.41 H 3.53 H (0.66-1.25) mg/dL Glucose 131 H 82 (74-99) mg/dL Calcium 8.8 8.3 L (8.4-10.2) mg/dL AST 34 (17-59) U/L ALT 22 (4-49) U/L Alkaline Phosphatase 89 (38-126) U/L Total Protein 5.9 L (6.3-8.2) g/dL Albumin 3.1 L (3.5-5.0) g/dL Current Medications Generic Name Dose Route Start Last Admin Trade Name Freq PRN Reason Stop Dose Admin Albuterol Sulfate 2.5 mg 07/18/19 20:00 07/19/19 10:09 Ventolin Nebulized INHALATION Not Given RT-QID [facility] Aspirin 81 mg 07/20/19 09:00 Aspirin PO DAILY [facility] Atorvastatin Calcium 20 mg 07/19/19 21:00 Lipitor PO HS [facility] Clopidogrel Bisulfate 75 mg 07/20/19 09:00 Plavix PO DAILY [facility] Furosemide 40 mg 07/19/19 16:00 Lasix IV Q8HR [facility] Hydralazine HCl 25 mg 07/19/19 21:00 Apresoline PO BID [facility] Ceftriaxone Sodium 1 gm/ 50 mls @ 100 mls/hr 07/19/19 09:45 Sodium Chloride IVPB Q24HR [facility] Azithromycin 500 mg/ Sodium 250 mls @ 250 mls/hr 07/19/19 09:45 Chloride IVPB DAILY [facility] Insulin Aspart 15 unit 07/19/19 12:30 Novolog SQ AC-TID [facility] Insulin Detemir 30 unit 07/19/19 21:00 Levemir SQ HS [facility] Nitroglycerin 0.4 mg 07/19/19 09:36 Nitrostat SUBLINGUAL Q5M PRN Chest Pain Pantoprazole Sodium 40 mg 07/19/19 09:45 Protonix IVP DAILY [facility] Intake and Output 07/18/19 07/19/19 07/19/19 22:59 06:59 14:59 Intake Total 100 Output Total 1 250 Balance 99 -250 Intake: Oral 100 Output: Urine 250 Urine/Stool Mix 1 Other: Voiding Method Toilet Weight 109.769 kg 07/18/19 15:41 07/19/19 08:25
[2019-07-19] MEDS: PANTOPRAZOLE 40 MG/10 ML VIAL IVP SCH (11:16)
[2019-07-19 12:37] LABS: Glucose,Whole Blood 168 mg/dL (75-99)
--- NOTE | 2019-07-19 12:54 | US ---
EXAMINATION TYPE: US chest DATE OF EXAM: 07/19/2019 COMPARISON: Chest Xray CLINICAL HISTORY: Markings for thoracentesis by pulmonary staff. TECHNIQUE: Targeted ultrasound of the posterior lower bilateral hemithoraces EXAM MEASUREMENTS: Right Pleural Effusion pocket size: no sizable pocket identified Left Pleural Effusion pocket size: 10.5 cm Left skin surface to fluid distance: 3.3 cm Lung noted at 1.6 cm. Left side marked for possible thoracentesis outside the dept. Pulmonologists are able to review the images in the patient?s EMR. IMPRESSIONS: Small left pleural effusion however lung is seen approximately 1.6 cm deep to the skin s urface.
--- NOTE | 2019-07-19 13:00 | ECHOF ---
Referral Reason:chf MEASUREMENTS -------- HEIGHT: 180.3 cm WEIGHT: 109.8 kg BP: RVIDd: 2.4 cm (< 3.3) IVSd: 1.7 cm (0.6 - 1.1) LVIDd: 4.9 cm (3.9 - 5.3) LVPWd: 1.5 cm (0.6 - 1.1) IVSs: 2.2 cm LVIDs: 3.8 cm LVPWs: 1.6 cm LAESV Index (A-L): 35.68 ml/m Ao Diam: 3.0 cm (2.0 - 3.7) AV Cusp: 1.0 cm (1.5 - 2.6) LA Diam: 4.0 cm (2.7 - 3.8) MV EXCURSION: 21.171 mm (> 18.000) MV EF SLOPE: 119 mm/s (70 - 150) EPSS: 1.1 cm MV E Adrian: 1.00 m/s MV DecT: 153 ms MV A Adrian: 0.71 m/s MV E/A Ratio: 1.41 AV maxP.27 mmHg AV meanP.12 mmHg RAP: 5.00 mmHg RVSP: 22.84 mmHg FINDINGS -------- Sinus rhythm. This was a technically difficult study with suboptimal views. The left ventricular size is normal. There is moderate concentric left ventricular hypertrophy. O verall left ventricular systolic function is mild-moderately impaired with, an EF between 40 - 45 %. Increased LAP Grade 3 Diastolic Dysfunction. Inferiorlateral Hypokinesis The right ventricle is normal in size. LA is moderately dilated 34-39 ml/m2 The right atrial size is normal. Lumason used Aortic valve is trileaflet and is mildly thickened. There is mild aortic stenosis present. Peak/m elsie gradient across the Aortic Valve is 17.27mmHg / 11.12mmHg. The mitral valve is normal. The mitral valve leaflets are mildly thickened. Mild mitral annular c alcification present. Mild mitral regurgitation is present. The tricuspid valve appears structurally normal. Mild tricuspid regurgitation present. Right vent ricular systolic pressure is normal at < 35 mmHg. There is no pulmonic regurgitation present. The aortic root size is normal. IVC Not well visulized. There is no pericardial effusion. CONCLUSIONS -------- 1. Sinus rhythm. 2. This was a technically difficult study with suboptimal views. 3. The left ventricular size is normal. 4. There is moderate concentric left ventricular hypertrophy. 5. Overall left ventricular systolic function is mild-moderately impaired with, an EF between 40 - 45 %. 6. Increased LAP Grade 3 Diastolic Dysfunction. 7. Inferiorlateral Hypokinesis 8. The right ventricle is normal in size. 9. LA is moderately dilated 34-39 ml/m2 10. The right atrial size is normal. 11. Lumason used 12. Aortic valve is trileaflet and is mildly thickened. 13. There is mild aortic stenosis present. 14. Peak/mean gradient across the Aortic Valve is 17.27mmHg / 11.12mmHg. 15. The mitral valve is normal. 16. The mitral valve leaflets are mildly thickened. 17. Mild mitral annular calcification present. 18. Mild mitral regurgitation is present. 19. The tricuspid valve appears structurally normal. 20. Mild tricuspid regurgitation present. 21. Right ventricular systolic pressure is normal at < 35 mmHg. 22. There is no pulmonic regurgitation present. 23. The aortic root size is normal. 24. IVC Not well visulized. 25. There is no pericardial effusion. MANAGER LAW: Nayana Rios RDCS
[2019-07-19] MEDS: CARVEDILOL 12.5 MG TAB PO SCH ×2 (13:08→18:13)
[2019-07-19] MEDS: INSULIN ASPART (NovoLOG) 100 UNIT/ML VIAL SQ SCH ×2 (13:08→18:14)
[2019-07-19] MEDS: AZITHROMYCIN 500 MG in SODIUM CHLORIDE 0.9% 250 ML IVPB SCH (13:09)
--- NOTE | 2019-07-19 14:19 | P.CNPUL ---
History of Present Illness Consult date: 07/19/19 Requesting physician: Sahil Carmona Reason for consult: abnormal CXR/CT Chief complaint: Shortness of breath, fatigue History of present illness: This is a very pleasant 69-year-old gentleman who follows with Dr. Carmona as his primary care provider. He has a history of diabetes mellitus, hypertension, hyperlipidemia, renal disease, GERD, coronary artery disease with previous coronary artery bypass grafting and previous stent placements. He is a lifelong nonsmoker. He presented here to the emergency room yesterday after developing a 2-3 day history of increasing shortness of breath and fatigue. He had returned from [place] 2-3 weeks ago. While there he was hospitalized for lower extremity peripheral edema and shortness of breath for 3 days and subsequently discharged. He states he was feeling back to his baseline until recently. X-ray shows progressive consolidation and pleural effusion on the left. pneumonia versus asymmetric venous congestion within the differential. Echocardiogram reveals mild to moderately impaired left ventricular systolic function with ejection fraction 40-45%. There is some inferolateral hypokinesia as well as grade 3 diastolic dysfunction. Peak troponin 0.283. ProBNP 24,500. Influenza screen negative. RSV negative. The patient is being tested for COVID 19. He is seen today in consultation on the regular medical floor. He is currently awake and alert in no acute distress. He does have a productive cough of thick yellow sputum. He does have some lower extremity edema. Maintaining O2 saturations in the 90s on room air. Currently afebrile. His T-max was 99.9. Lactic acid 1.2. Review of Systems REVIEW OF SYSTEMS: CONSTITUTIONAL: Positive for weight gain and swelling of the lower extremities. EYES: Denies change in vision. EARS, NOSE, MOUTH, THROAT: Denies headaches, denies sore throat. CARDIOVASCULAR: Denies chest pain, palpitations or syncopal episodes. RESPIRATORY: positive for shortness of breath, cough, congestion or hemoptysis. GASTROINTESTINAL: Denies change in appetite, denies abdominal pain GENITOURINARY: Denies hematuria, denies infections. MUSKULOSKELETAL: Denies pain, positive swelling. INTEGUMENTARY: Denies rash, denies eczema. NEUROLOGICAL: Denies recent memory loss, no recent seizure activity. PSYCHIATRIC: Denies anxiety, denies depression. HEMATOLOGIC/LYMPHATIC: Denies anemia, denies enlarged lymph nodes. Past Medical History Past Medical History: Coronary Artery Disease (CAD), Diabetes Mellitus, GERD/Reflux, Hyperlipidemia, Hypertension, Myocardial Infarction ([place]), Renal Disease Additional Past Medical History / Comment(s): Kidney stones; Renal insufficency - "UNDER CONTROL;" Last Myocardial Infarction Date:: 2009 History of Any Multi-Drug Resistant Organisms: None Reported Past Surgical History: Coronary Bypass/CABG, Heart Catheterization, Heart Catheterization With Stent Additional Past Surgical History / Comment(s): STENTS X3. HAD CABG 2009. C. CATH 07/01/17. Past Anesthesia/Blood Transfusion Reactions: No Reported Reaction Date of Last Stent Placement:: 07-14-17 Past Psychological History: No Psychological Hx Reported Smoking Status: Never smoker Past Alcohol Use History: Rare Past Drug Use History: None Reported - Past Family History Mother Family Medical History: CVA/TIA, Diabetes Mellitus Father Family Medical History: CVA/TIA, Myocardial Infarction ([place]) Additional Family Medical History / Comment(s): mother: htn, dm. Medications and Allergies Home Medications Medication Instructions Recorded Confirmed Type Allopurinol [Zyloprim] 200 mg PO DAILY 10/27/13 07/18/19 History Aspirin EC [Ecotrin Low Dose] 81 mg PO DAILY 10/27/13 07/18/19 History Ergocalciferol (Vitamin D2) 50,000 unit PO MO 10/27/13 07/18/19 History [Drisdol] Famotidine [Pepcid] 20 mg PO DAILY 10/27/13 07/18/19 History Atorvastatin [Lipitor] 20 mg PO HS 12/30/16 07/18/19 History Clopidogrel [Plavix] 75 mg PO DAILY #90 tab 07/15/17 07/18/19 Rx Carvedilol [Coreg] 25 mg PO BID 07/18/19 07/18/19 History Furosemide [Lasix] 80 mg PO DAILY 07/18/19 07/18/19 History Insulin Glargine,Hum.rec.anlog 30 unit SQ HS 07/18/19 07/18/19 History [Lantus Solostar] Insulin Lispro [humaLOG Kwikpen] 15 unit SQ AC-TID 07/18/19 07/18/19 History Nitroglycerin Sl Tabs [Nitrostat] 0.4 mg PO Q5M PRN 07/18/19 07/18/19 History Potassium Chloride ER [K-Dur 10] 10 meq PO BID 07/18/19 07/18/19 History hydrALAZINE HCL [Apresoline] 25 mg PO BID 07/18/19 07/18/19 History Allergies Allergy/AdvReac Type Severity Reaction Status Date / Time No Known Allergies Allergy Verified 07/18/19 17:22 Physical Exam Vitals: Vital Signs Temp Pulse Pulse Resp BP BP Pulse Ox 07/19/19 04:45 97.8 F 108 H 16 158/75 98 07/18/19 22:55 97 F L 63 20 151/69 94 L 07/18/19 20:00 57 L 22 130/69 97 07/18/19 19:00 66 21 136/75 98 07/18/19 18:00 66 21 140/81 99 07/18/19 17:38 98.7 F 69 18 140/81 100 07/18/19 17:00 75 22 145/76 99 07/18/19 16:40 76 07/18/19 16:29 72 07/18/19 16:00 78 24 126/99 97 07/18/19 15:46 22 07/18/19 14:51 99.9 F H 74 16 125/81 91 L Intake and Output 07/18/19 07/19/19 07/19/19 22:59 06:59 14:59 Intake Total 100 Output Total 1 250 Balance 99 -250 Intake: Oral 100 Output: Urine 250 Urine/Stool Mix 1 Other: Voiding Method Toilet Weight 109.769 kg GENERAL EXAM: Alert, pleasant 69-year-old gentleman, on 2 L nasal cannula, comfortable in no apparent distress. HEAD: Normocephalic. EYES: Normal reaction of pupils, equal size. NOSE: Clear with pink turbinates. THROAT: No erythema or exudates. NECK: No masses, no JVD. CHEST: No chest wall deformity. LUNGS: Equal air entry with crackles in the bases more so on the left, diminished CVS: S1 and S2 normal with no audible murmur, regular rhythm. ABDOMEN: No hepatosplenomegaly, normal bowel sounds, no guarding or rigidity. SPINE: No scoliosis or deformity SKIN: No rashes CENTRAL NERVOUS SYSTEM: No focal deficits, tone is normal in all 4 extremities. EXTREMITIES: There is 1+peripheral edema. No clubbing, no cyanosis. Peripheral pulses are intact. Results - Laboratory Findings CBC and BMP: 07/18/19 15:41 07/19/19 08:25 PT/INR, D-dimer PT 10.5 sec (9.0-12.0) 07/18/19 15:41 INR 1.0 (<1.2) 07/18/19 15:41 Abnormal lab findings: Abnormal Labs 07/18/19 07/18/19 07/18/19 15:41 15:41 15:41 WBC 14.1 H RBC 3.38 L Hgb 10.8 L Hct 33.2 L Neutrophils # 12.4 H Lymphocytes # 0.8 L Chloride BUN 50 H Creatinine 3.41 H Glucose 131 H POC Glucose (mg/dL) Plasma Lactic Acid Marcus 2.3 H* Calcium Troponin I Total Protein 5.9 L Albumin 3.1 L 07/18/19 07/18/19 07/19/19 15:41 20:55 08:25 WBC RBC Hgb Hct Neutrophils # Lymphocytes # Chloride 110 H BUN 51 H Creatinine 3.53 H Glucose POC Glucose (mg/dL) 112 H Plasma Lactic Acid Marcus Calcium 8.3 L Troponin I 0.283 H* Total Protein Albumin 07/19/19 07/19/19 08:25 12:35 WBC RBC Hgb Hct Neutrophils # Lymphocytes # Chloride BUN Creatinine Glucose POC Glucose (mg/dL) 168 H Plasma Lactic Acid Marcus Calcium Troponin I 0.214 H* Total Protein Albumin - Diagnostic Findings Chest x-ray: image reviewed Assessment and Plan Assessment: 1 Acute exacerbation of chronic combined systolic and diastolic congestive heart failure 2 Left pleural effusion secondary to above 3 Acute kidney injury suspecting cardiorenal syndrome 4 History of chronic kidney disease 5 Insulin-dependent diabetes mellitus 6 Hypertension 7 Coronary artery disease with previous stent placements and coronary artery bypass grafting 8 Recent admission for suspected heart failure for 3 days in [place] 3 weeks ago Plan: The patient was seen and evaluated by Dr. Santamaria. Chest x-ray, ultrasound and labs reviewed. We'll continue with diuretics. No plans for thoracentesis at this time. Ultrasound does show a 10.3 cm pocket on the left however there is lung tissue within the fluid. If no resolution or worsening shortness of breath would consider ultrasound-guided thoracentesis by interventional radiology. We will continue to follow make further recommendations based on his clinical status. I, the cosigning physician, performed a history & physical examination of the patient. Lungs sounds crackles in bilateral bases, left greater than right, diminished. Maintaining good O2 saturations in the 90s on 2 L/m per nasal cannula. I discussed the assessment and plan of care with my nurse practitioner, Silvia Garcia. I attest to the above note as dictated by her. Time with Patient: Greater than 30
[2019-07-19 14:53] VITALS: BMI 34.7
--- NOTE | 2019-07-19 15:58 | P.HPIM ---
History of Present Illness H&P Date: 07/19/19 Chief Complaint: Worsening shortness of breath, cough This is 69-year-old gentleman with history of CAD, LA, CABG, cardiac catheterization with stents, diabetes mellitus, gastroesophageal reflux disease, hyperlipidemia, hypertension, renal failure and multiple other medical issues, presented to the ER with worsening shortness of breath, productive cough with yellow sputum, accompanied by fevers. Denies nausea vomiting or diarrhea. Denies chest pain, palpitations. Patient traveled to [place] in May, developed pneumonia, later hospitalized in [place] in June for CHF exacerbation. Was seen by Dr. Carmona at the office yesterday and referred to the ER. Arrived febrile with temperature 99.9, elevated WBC of 14.1, lactic acid 2.3 with repeat of 0.9. Influenza A and B not detected, RSV negative ,COVID-19 testing completed, results pending. Vital signs stable, O2 sats of 91% on room air .BUN 50, creatinine 3.41. EKG reported normal sinus rhythm possible in ferior/anterior infarct, age undetermined. Troponins 0.283, 0.214. Magnesium 2.2. Chest x-ray reporting left-sided consolidation with small effusion, no pneumothorax, hyperinflation COPD, possible pneumonia possible asymmetric venous congestio. Follow-up chest x-ray reported progressive airspace disease and/or pleural fluid, correlate for pneumonia versus atypical CHF. Review of Systems ROS Other: All systems not noted in ROS Statement are negative. ROS Statement: Those systems with pertinent positive or pertinent negative responses have been documented in the HPI. Past Medical History Past Medical History: Coronary Artery Disease (CAD), Diabetes Mellitus, GERD/Reflux, Hyperlipidemia, Hypertension, Myocardial Infarction (LA), Renal Disease Additional Past Medical History / Comment(s): Kidney stones; Renal insufficency - "UNDER CONTROL;" Last Myocardial Infarction Date:: 2009 History of Any Multi-Drug Resistant Organisms: None Reported Past Surgical History: Coronary Bypass/CABG, Heart Catheterization, Heart Catheterization With Stent Additional Past Surgical History / Comment(s): STENTS X3. HAD CABG 2010. C. CATH 07/01/17. Past Anesthesia/Blood Transfusion Reactions: No Reported Reaction Date of Last Stent Placement:: 07-14-17 Past Psychological History: No Psychological Hx Reported Smoking Status: Never smoker Past Alcohol Use History: Rare Past Drug Use History: None Reported - Past Family History Mother Family Medical History: CVA/TIA, Diabetes Mellitus Father Family Medical History: CVA/TIA, Myocardial Infarction (LA) Additional Family Medical History / Comment(s): mother: htn, dm. Medications and Allergies Home Medications Medication Instructions Recorded Confirmed Type Allopurinol [Zyloprim] 200 mg PO DAILY 10/27/13 07/18/19 History Aspirin EC [Ecotrin Low Dose] 81 mg PO DAILY 10/27/13 07/18/19 History Ergocalciferol (Vitamin D2) 50,000 unit PO MO 10/27/13 07/18/19 History [Drisdol] Famotidine [Pepcid] 20 mg PO DAILY 10/27/13 07/18/19 History Atorvastatin [Lipitor] 20 mg PO HS 12/30/16 07/18/19 History Clopidogrel [Plavix] 75 mg PO DAILY #90 tab 07/15/17 07/18/19 Rx Carvedilol [Coreg] 25 mg PO BID 07/18/19 07/18/19 History Furosemide [Lasix] 80 mg PO DAILY 07/18/19 07/18/19 History Insulin Glargine,Hum.rec.anlog 30 unit SQ HS 07/18/19 07/18/19 History [Lantus Solostar] Insulin Lispro [humaLOG Kwikpen] 15 unit SQ AC-TID 07/18/19 07/18/19 History Nitroglycerin Sl Tabs [Nitrostat] 0.4 mg PO Q5M PRN 07/18/19 07/18/19 History Potassium Chloride ER [K-Dur 10] 10 meq PO BID 07/18/19 07/18/19 History hydrALAZINE HCL [Apresoline] 25 mg PO BID 07/18/19 07/18/19 History Allergies Allergy/AdvReac Type Severity Reaction Status Date / Time No Known Allergies Allergy Verified 07/18/19 17:22 Physical Exam Vitals: Vital Signs Temp Pulse Pulse Resp BP BP Pulse Ox 07/19/19 04:45 97.8 F 108 H 16 158/75 98 07/18/19 22:55 97 F L 63 20 151/69 94 L 07/18/19 20:00 57 L 22 130/69 97 07/18/19 19:00 66 21 136/75 98 07/18/19 18:00 66 21 140/81 99 07/18/19 17:38 98.7 F 69 18 140/81 100 07/18/19 17:00 75 22 145/76 99 07/18/19 16:40 76 07/18/19 16:29 72 07/18/19 16:00 78 24 126/99 97 07/18/19 15:46 22 07/18/19 14:51 99.9 F H 74 16 125/81 91 L Intake and Output 07/18/19 07/19/19 07/19/19 22:59 06:59 14:59 Intake Total 100 Output Total 1 250 Balance 99 -250 Intake: Oral 100 Output: Urine 250 Urine/Stool Mix 1 Other: Voiding Method Toilet Weight 109.769 kg PHYSICAL EXAM: VITAL SIGNS: As above GENERAL: Sitting up at side of bed, tired, fatigued HEENT: Conjunctivae normal. eyes normal. NECK: No JVD. No thyroid enlargement. No LNs CARDIOVASCULAR: S1, S2 regular. Systolic murmur RESPIRATION: Breath sounds diminished in the bases. No rhonchi, scattered left- sided crackles, no wheezing ABDOMEN: Soft, nontender . No guarding. no masses palpable. No ascites, No hepatosplenomegaly.Bowel sounds heard. LEGS: Positive pitting +1 edema. Chronic venous stasis, no calf tenderness PSYCHIATRY: Alert and oriented X3, mood and affect normal. NERVOUS SYSTEM: Cranial N 2-12 grossly normal. Moves all 4 limbs. Diffuse weakness No focal deficits. Strength and sensation grossly intact.. Skin: no rash Lymphatic system. No LN neck axilla. Results CBC & Chem 7: 07/18/19 15:41 07/19/19 08:25 Labs: Abnormal Lab Results - Last 24 Hours (Table) 07/18/19 07/18/19 07/18/19 Range/Units 15:41 15:41 15:41 WBC 14.1 H (3.8-10.6) k/uL RBC 3.38 L (4.30-5.90) m/uL Hgb 10.8 L (13.0-17.5) gm/dL Hct 33.2 L (39.0-53.0) % Neutrophils # 12.4 H (1.3-7.7) k/uL Lymphocytes # 0.8 L (1.0-4.8) k/uL Chloride (98-107) mmol/L BUN 50 H (9-20) mg/dL Creatinine 3.41 H (0.66-1.25) mg/dL Glucose 131 H (74-99) mg/dL POC Glucose (mg/dL) (75-99) mg/dL Plasma Lactic Acid Marcus 2.3 H* (0.7-2.0) mmol/L Calcium (8.4-10.2) mg/dL Troponin I (0.000-0.034) ng/mL Total Protein 5.9 L (6.3-8.2) g/dL Albumin 3.1 L (3.5-5.0) g/dL 07/18/19 07/18/19 07/19/19 Range/Units 15:41 20:55 08:25 WBC (3.8-10.6) k/uL RBC (4.30-5.90) m/uL Hgb (13.0-17.5) gm/dL Hct (39.0-53.0) % Neutrophils # (1.3-7.7) k/uL Lymphocytes # (1.0-4.8) k/uL Chloride 110 H (98-107) mmol/L BUN 51 H (9-20) mg/dL Creatinine 3.53 H (0.66-1.25) mg/dL Glucose (74-99) mg/dL POC Glucose (mg/dL) 112 H (75-99) mg/dL Plasma Lactic Acid Marcus (0.7-2.0) mmol/L Calcium 8.3 L (8.4-10.2) mg/dL Troponin I 0.283 H* (0.000-0.034) ng/mL Total Protein (6.3-8.2) g/dL Albumin (3.5-5.0) g/dL Microbiology - Last 24 Hours (Table) 07/18/19 17:58 Gram Stain - Preliminary Sputum Sputum Culture - Preliminary Thrombosis Risk Factor Assmnt - Choose All That Apply Each Risk Factor Represents 2 Points: Age 61-74 years Thrombosis Risk Factor Assessment Total Risk Factor Score: 2 Thrombosis Risk Factor Assessment Level: Low Risk Assessment and Plan Assessment: Dyspnea,secondary to acute on chronic diastolic CHF, pneumonia, COVID-19 testing completed, results pending. Left pleural effusion secondary to above Acute renal failure, prerenal secondary to cardiorenal syndrome Chronic kidney disease, stage III, baseline 1.6-1.8, and 2.6 in Apr 2019, progressing, secondary to diabetes Lactic acidosis Leukocytosis CAD, history of LA, CABG, cardiac catheterization with stent Diabetes mellitus Gastroesophageal reflux disease Hypertension Hyperlipidemia Hypokalemia secondary to diuresing Urinary retention being ruled out Morbid obesity, BMI 34.7 Plan: Continue current medication regime ,monitoring and symptomatic treatment. Diuresed on Lasix IV push as per nephrology. Antibiotics of Zithromax and Rocephin resumed, had received in the ER. Aggressive pulmonary toileting with nebulized bronchodilators. Echo/chest ultrasound ordered .Home meds have been reviewed and resumed accordingly. Close monitoring of renal function, elec trolytes with repeat labs ordered for a.m. evaluated by multiple consults, nephrology, cardiology, pulmonary with recommendations noted and appreciated. Prognosis guarded given multiple complex medical issues. The impression and plan of care has been dictated as directed. : I performed a history and examination of this patient, discussed the same with the dictator. I agree with the dictator's note ,documented as a scribe. Any additional findings or plans will be noted.
[2019-07-19 17:03] LABS: Glucose,Whole Blood 121 mg/dL (75-99)
[2019-07-19 20:17] LABS: Glucose,Whole Blood 102 mg/dL (75-99)
[2019-07-19] MEDS ORDERED: INSULIN DETEMIR (LEVEMIR) 100 UNIT/ML SYR SQ SCH (21:00)
[2019-07-19] MEDS ORDERED: ATORVASTATIN 20 MG TAB PO SCH (21:00)
[2019-07-19] MEDS: hydrALAZINE HCL 25 MG TAB PO SCH (22:05)
[2019-07-20 07:18] LABS: Glucose,Whole Blood 74 mg/dL (75-99)
[2019-07-20] MEDS: ALBUTEROL NEBULIZED 2.5 MG/3 ML INHALATION SCH ×3 (08:00→16:03)
[2019-07-20] MEDS: CARVEDILOL 12.5 MG TAB PO SCH (08:14)
[2019-07-20] MEDS: hydrALAZINE HCL 25 MG TAB PO SCH (08:14)
[2019-07-20] MEDS: INSULIN ASPART (NovoLOG) 100 UNIT/ML VIAL SQ SCH ×2 (08:15→12:35)
[2019-07-20] MEDS: AZITHROMYCIN 500 MG in SODIUM CHLORIDE 0.9% 250 ML IVPB SCH (08:15)
[2019-07-20] MEDS: FUROSEMIDE 10 MG/ML 4 ML VIAL IV SCH ×2 (08:15→14:42)
[2019-07-20] MEDS: PANTOPRAZOLE 40 MG/10 ML VIAL IVP SCH (08:15)
[2019-07-20 08:39] LABS: Calcium 8.1 mg/dL (8.4-10.2); Magnesium 2.3 mg/dL (1.6-2.3); Potassium 3.7 mmol/L (3.5-5.1)
[2019-07-20 08:45] LABS: Basophils # (A) 0.1 k/uL (0-0.2); Basophils % (A) 1 %; Eosinophils # (A) 0.3 k/uL (0-0.7); Eosinophils % (A) 3 %; HCT 32.3 % (39.0-53.0); HGB 10.1 gm/dL (13.0-17.5); Hypochromasia Slight; Lymphocytes # (A) 1.6 k/uL (1.0-4.8); Lymphocytes % (A) 15 %; MCH 31.3 pg (25.0-35.0); MCHC 31.4 g/dL (31.0-37.0); MCV 99.9 fL (80.0-100.0); Mean Platelet Volume 9.1; Monocytes # (A) 0.6 k/uL (0-1.0); Monocytes % (A) 6 %; Neutrophils # (A) 7.6 k/uL (1.3-7.7); Neutrophils % (A) 74 %; Platelet Count 256 k/uL (150-450); RBC 3.23 m/uL (4.30-5.90); RDW 13.7 % (11.5-15.5); WBC 10.2 k/uL (3.8-10.6)
[2019-07-20] MEDS ORDERED: ASPIRIN 81 MG PO SCH (09:00)
[2019-07-20] MEDS ORDERED: CLOPIDOGREL 75 MG TAB PO SCH (09:00)
[2019-07-20] MEDS ORDERED: POTASSIUM CHLORIDE ER 20 MEQ TAB.ER PO STA (09:27)
--- NOTE | 2019-07-20 09:28 | P.PN ---
Subjective Patient is seen in follow-up for acute kidney injury on chronic kidney disease. Renal function is stable. He is maintained on IV Lasix. Edema is gradually improving. He admits to good urine output. No evidence of urinary retention. Vital signs are stable. General: The patient appeared well nourished and normally developed. HEENT: Head exam is unremarkable. Neck is without jugular venous distension. LUNGS: Lungs are clear to auscultation and percussion. Breath sounds decreased. HEART: Rate and Rhythm are regular. First and second heart sounds normal. No murmurs, rubs or gallops. ABDOMEN: Abdominal exam reveals normal bowel sounds. Non-tender and non- distended. No evidence of peritonitis. EXTREMITITES: 1+ edema. Chronic changes noted. Objective - Vital Signs Vital signs: Vital Signs Temp 96.7 F L 07/20/19 04:28 Pulse 76 07/20/19 08:16 Resp 24 07/20/19 04:28 BP 144/87 07/20/19 04:28 Pulse Ox 97 07/20/19 04:28 Intake & Output 07/19/19 07/20/19 07/20/19 18:59 06:59 18:59 Output Total 700 300 Balance -700 -300 Weight 109.769 kg Output: Urine 550 Post Void Residual 150 300 Other: Voiding Method Toilet Toilet Toilet - Labs CBC & Chem 7: 07/20/19 08:14 07/20/19 08:14 Labs: Abnormal Lab Results - Last 24 Hours (Table) 07/19/19 07/19/19 07/19/19 Range/Units 08:25 12:35 17:01 RBC (4.30-5.90) m/uL Hgb (13.0-17.5) gm/dL Hct (39.0-53.0) % Chloride (98-107) mmol/L BUN (9-20) mg/dL Creatinine (0.66-1.25) mg/dL Glucose (74-99) mg/dL POC Glucose (mg/dL) 168 H 121 H (75-99) mg/dL Calcium (8.4-10.2) mg/dL Troponin I 0.214 H* (0.000-0.034) ng/mL 07/19/19 07/20/19 07/20/19 Range/Units 20:15 07:17 08:14 RBC (4.30-5.90) m/uL Hgb (13.0-17.5) gm/dL Hct (39.0-53.0) % Chloride 110 H (98-107) mmol/L BUN 55 H (9-20) mg/dL Creatinine 3.51 H (0.66-1.25) mg/dL Glucose 58 L (74-99) mg/dL POC Glucose (mg/dL) 102 H 74 L (75-99) mg/dL Calcium 8.1 L (8.4-10.2) mg/dL Troponin I (0.000-0.034) ng/mL 07/20/19 Range/Units 08:14 RBC 3.23 L (4.30-5.90) m/uL Hgb 10.1 L (13.0-17.5) gm/dL Hct 32.3 L (39.0-53.0) % Chloride (98-107) mmol/L BUN (9-20) mg/dL Creatinine (0.66-1.25) mg/dL Glucose (74-99) mg/dL POC Glucose (mg/dL) (75-99) mg/dL Calcium (8.4-10.2) mg/dL Troponin I (0.000-0.034) ng/mL Microbiology - Last 24 Hours (Table) 07/18/19 15:41 Blood Culture - Preliminary Blood No Growth after 24 hours Assessment and Plan Plan: Assessment: 1. Acute kidney injury mostly prerenal secondary to cardiorenal syndrome. Renal function stable. Creatinine 3.51 today. No evidence of urinary retention. 2. Chronic kidney disease stage III with baseline creatinine 1.6-1.8 secondary to diabetic kidney disease. Over the last year his renal function has deteriorated. Creatinine in April 2019 was 2.6. 3. Volume overload. 4. History of coronary artery disease status post stenting. 5. Insulin-dependent diabetes mellitus. 6. Hypertension with chronic kidney disease. Controlled. 7. Hypokalemia secondary to diuresis. Magnesium normal. 8. Acute on chronic systolic CHF with ejection fraction of 40-45%. Plan: Maintain IV Lasix. Replace potassium. 40 mEq today. Continue to monitor renal function and urine output. Repeat electrolytes in the morning.
[2019-07-20 11:42] LABS: Glucose,Whole Blood 138 mg/dL (75-99)
--- NOTE | 2019-07-20 12:31 | P.PN ---
Subjective Progress Note Date: 07/20/19 This is a very pleasant 69-year-old gentleman who follows with Dr. Carmona as his primary care provider. He has a history of diabetes mellitus, hypertension, hyperlipidemia, renal disease, GERD, coronary artery disease with previous coronary artery bypass grafting and previous stent placements. He is a lifelong nonsmoker. He presented here to the emergency room yesterday after developing a 2-3 day history of increasing shortness of breath and fatigue. He had returned from [place] 2-3 weeks ago. While there he was hospitalized for lower extremity peripheral edema and shortness of breath for 3 days and subsequently discharged. He states he was feeling back to his baseline until recently. X-ray shows progressive consolidation and pleural effusion on the left. pneumonia versus asymmetric venous congestion within the differential. Echocardiogram reveals mild to moderately impaired left ventricular systolic function with ejection fraction 40-45%. There is some inferolateral hypokinesia as well as grade 3 diastolic dysfunction. Peak troponin 0.283. ProBNP 24,500. Influenza screen negative. RSV negative. The patient is being tested for COVID 19. He is seen today in consultation on the regular medical floor. He is currently awake and alert in no acute distress. He does have a productive cough of thick yellow sputum. He does have some lower extremity edema. Maintaining O2 saturations in the 90s on room air. Currently afebrile. His T-max was 99.9. Lactic acid 1.2. On 07/20/2019 patient is seen in follow-up on general medical floor. His breathing is improving, does have a congested cough with production of thick yellow sputum, sputum culture was positive for Haemophilus influenza patient is covered with Zithromax. Room air pulse ox is 97%, hemodynamically patient stable, patient has been afebrile. Lung sounds reveal diminished breath sounds at left base, no wheezing, no rhonchi. Patient remains on IV diuretics, he is in -1000 mL fluid balance, lower extremity edema is improving. Follow-up chest x-rays pending. Patient is requesting to go home today. COVID 19 test is still pending Objective - Vital Signs Vital signs: Vital Signs Temp 96.7 F L 07/20/19 04:28 Pulse 76 07/20/19 11:50 Resp 24 07/20/19 04:28 BP 144/87 07/20/19 04:28 Pulse Ox 97 07/20/19 04:28 Intake & Output 07/19/19 07/20/19 07/20/19 18:59 06:59 18:59 Output Total 700 300 400 Balance -700 -300 -400 Weight 109.769 kg Output: Urine 550 400 Post Void Residual 150 300 0 Other: Voiding Method Toilet Toilet Toilet - Exam GENERAL EXAM: Alert, very pleasant, 69-year-old white female, on room air comfortable in no apparent distress. HEAD: Normocephalic/atraumatic. EYES: Normal reaction of pupils, equal size. Conjunctiva pink, sclera white. NOSE: Clear with pink turbinates. THROAT: No erythema or exudates. NECK: No masses, no JVD, no thyroid enlargement, no adenopathy. CHEST: No chest wall deformity. Symmetrical expansion. LUNGS: Equal air entry with diminished breath sounds at the left base, but no wheeze, rhonchi or dullness. CVS: Regular rate and rhythm, normal S1 and S2, no gallops, no murmurs, no rubs ABDOMEN: Soft, nontender. No hepatosplenomegaly, normal bowel sounds, no guarding or rigidity. EXTREMITIES: No clubbing, mild pretibial and pedal edema, and chronic venous stasis changes in bilateral lower extremities no cyanosis, 2+ pulses and upper and lower extremities. MUSCULOSKELETAL: Muscle strength and tone normal. SPINE: No scoliosis or deformity SKIN: No rashes CENTRAL NERVOUS SYSTEM: Alert and oriented -3. No focal deficits, tone is normal in all 4 extremities. PSYCHIATRIC: Alert and oriented -3. Appropriate affect. Intact judgment and insight. - Labs CBC & Chem 7: 07/20/19 08:14 07/20/19 08:14 Labs: Abnormal Lab Results - Last 24 Hours (Table) 07/19/19 07/19/19 07/19/19 Range/Units 12:35 17:01 20:15 RBC (4.30-5.90) m/uL Hgb (13.0-17.5) gm/dL Hct (39.0-53.0) % Chloride (98-107) mmol/L BUN (9-20) mg/dL Creatinine (0.66-1.25) mg/dL Glucose (74-99) mg/dL POC Glucose (mg/dL) 168 H 121 H 102 H (75-99) mg/dL Calcium (8.4-10.2) mg/dL 07/20/19 07/20/19 07/20/19 Range/Units 07:17 08:14 08:14 RBC 3.23 L (4.30-5.90) m/uL Hgb 10.1 L (13.0-17.5) gm/dL Hct 32.3 L (39.0-53.0) % Chloride 110 H (98-107) mmol/L BUN 55 H (9-20) mg/dL Creatinine 3.51 H (0.66-1.25) mg/dL Glucose 58 L (74-99) mg/dL POC Glucose (mg/dL) 74 L (75-99) mg/dL Calcium 8.1 L (8.4-10.2) mg/dL 07/20/19 Range/Units 11:39 RBC (4.30-5.90) m/uL Hgb (13.0-17.5) gm/dL Hct (39.0-53.0) % Chloride (98-107) mmol/L BUN (9-20) mg/dL Creatinine (0.66-1.25) mg/dL Glucose (74-99) mg/dL POC Glucose (mg/dL) 138 H (75-99) mg/dL Calcium (8.4-10.2) mg/dL Microbiology - Last 24 Hours (Table) 07/18/19 17:58 Gram Stain - Final Sputum Sputum Culture - Final Haemophilus influenzae 07/18/19 15:41 Blood Culture - Preliminary Blood No Growth after 24 hours Assessment and Plan Plan: 1 Acute exacerbation of chronic combined systolic and diastolic congestive heart failure 2 Left pleural effusion secondary to above 3 Acute kidney injury suspecting cardiorenal syndrome 4 History of chronic kidney disease 5 Insulin-dependent diabetes mellitus 6 Hypertension 7 Coronary artery disease with previous stent placements and coronary artery bypass grafting 8 Recent admission for suspected heart failure for 3 days in [place] 3 weeks ago 9 bronchitis related to Haemophilus influenza, patient is covered with Zithromax Plan: We'll obtain follow-up chest x-ray, patient is improving, his been diuresed, he is covered with Zithromax for Haemophilus influenza in his sputum, does have so me slight congestion and cough, patient is able to clear phlegm, vital signs are stable, he's been afebrile, increase activity as tolerated, patient is requested to go home today chest x-ray has been reviewed with Dr. Claros, and showed significant improvement in the appearance of left-sided pleural effusion, diuretics with nephrology recommendations, normally patient takes 40 mg of Lasix twice daily, and patient can finish outpatient course of Zithromax. I performed a history & physical examination of the patient and discussed their management with my nurse practitioner, Ruthie Faust. I reviewed the nurse practitioner's note and agree with the documented findings and plan of care. Lung sounds are positive for diminished breath sounds. The findings and the impression was discussed with the patient. I attest to the documentation by the nurse practitioner. Time with Patient: Less than 30
--- NOTE | 2019-07-20 13:17 | XR ---
EXAMINATION TYPE: XR chest 1V portable DATE OF EXAM: 07/20/2019 COMPARISON: Prior chest 07/19/2019 HISTORY: Shortness of breath TECHNIQUE: Single frontal view of the chest is obtained. FINDINGS: Findings are similar to prior exam. Patient is rotated. There are overlying cardiac leads. IMPRESSION: There is not a significant interval change. Correlate for pneumonia, possible pleural ef fusion. There may be a component of interstitial edema.
[2019-07-20 15:11] VITALS: BP 126/70; PULSE 63; RESP 16; TEMP 98.4
--- NOTE | 2019-07-20 16:38 | P.DS ---
Providers Date of admission: 07/18/19 17:25 Expected date of discharge: 07/20/19 Attending physician: Sahil Carmona Consults: 07/18/19 16:54 Consult Physician Stat Consulting Provider: Ramy Sánchez Consult Reason/Comments: CHF, elevated troponin, pneumonia Do you want consulting provider notified?: Yes Consult Physician Stat Consulting Provider: Yane Alvarado Consult Reason/Comments: renal disease, CHF Do you want consulting provider notified?: Yes 07/18/19 17:03 Consult Physician Stat Consulting Provider: Varun Santamaria Consult Reason/Comments: CHF, pneumonia Do you want consulting provider notified?: Yes Primary care physician: Sahil Carmona Hospital Course: Final Diagnoses: Dyspnea,secondary to acute on chronic diastolic CHF, bronchitis with Haemophilus influenza, pneumonia ruled out as per pulmonary, COVID-19 testing completed, results pending. Left pleural effusion secondary to above Acute renal failure, prerenal secondary to cardiorenal syndrome Chronic kidney disease, stage III, baseline 1.6-1.8, and 2.6 in Apr 2019, progressing, secondary to diabetes Lactic acidosis Leukocytosis CAD, history of DC, CABG, cardiac catheterization with stent Diabetes mellitus Gastroesophageal reflux disease Hypertension Hyperlipidemia Hypokalemia secondary to diuresing Urinary retention being ruled out Morbid obesity, BMI 34.7 Hospital course:This is 69-year-old gentleman with history of CAD, DC, CABG, cardiac catheterization with stents, diabetes mellitus, gastroesophageal reflux disease, hyperlipidemia, hypertension, renal failure and multiple other medical issues, presented to the ER with worsening shortness of breath, productive cough with yellow sputum, accompanied by fevers. Denies nausea vomiting or diarrhea. Denies chest pain, palpitations. Patient traveled to [place] in May, developed pneumonia, later hospitalized in [place] in June for CHF exacerbation. Was seen by Dr. Carmona at the office yesterday and referred to the ER. Arrived febrile with temperature 99.9, elevated WBC of 14.1, lactic acid 2.3 with repeat of 0.9. Influenza A and B not detected, RSV negative ,COVID-19 testing completed, results pending. Vital signs stable, O2 sats of 91% on room air .BUN 50, creatinine 3.41. EKG reported normal sinus rhythm possible inferior/anterior infarct, age undetermined. Troponins 0.283, 0.214. Magnesium 2.2. Chest x-ray reporting left-sided consolidation with small effusion, no pneumothorax, hyperinflation COPD, possible pneumonia possible asymmetric venous congestio. Follow-up chest x-ray reported progressive airspace disease and/or pleural fluid, correlate for pneumonia versus atypical CHF. Sputum culture positive for Haemophilus influenza Maintained on Zithromax. Follow-up chest x-ray reporting improvement. Evaluated by pulmonary, cardiology and nephrology.COVID 19 test is pending. Significant clinical improvement. Cleared by all consults for discharge. Diuretics dosing as per nephrology. Patient is being discharged home in a stable condition with guarded prognosis.Covid-19 quarantine. Microbiology 07/18/19 17:58 Sputum Gram Stain - Final 07/18/19 17:58 Sputum Sputum Culture - Final Haemophilus influenzae 07/18/19 15:41 Blood Blood Culture - Preliminary No Growth after 24 hours GENERAL EXAM: Alert and oriented 3, no acute distress LUNGS: Equal air entry with diminished breath sounds, no rhonchi crackles or wheezes. CVS: Regular rate and rhythm, normal S1 and S2, no gallops, no murmurs, no rubs ABDOMEN: Soft, nontender. normal bowel sounds, no guarding or rigidity. NERVOUS SYSTEM: No focal deficits. The impression and plan of care has been dictated as directed. : I performed a history and examination of this patient, discussed the same with the dictator. I agree with the dictator's note ,documented as a scribe. Any additional findings or plans will be noted. Patient Condition at Discharge: Stable Plan - Discharge Summary Discharge Rx Participant: No New Discharge Prescriptions: New Azithromycin [Zithromax] 500 mg PO DAILY #5 tab Continue Famotidine [Pepcid] 20 mg PO DAILY Ergocalciferol (Vitamin D2) [Drisdol] 50,000 unit PO MO Aspirin EC [Ecotrin Low Dose] 81 mg PO DAILY Allopurinol [Zyloprim] 200 mg PO DAILY Atorvastatin [Lipitor] 20 mg PO HS Clopidogrel [Plavix] 75 mg PO DAILY #90 tab hydrALAZINE HCL [Apresoline] 25 mg PO BID Insulin Lispro [humaLOG Kwikpen] 15 unit SQ AC-TID Insulin Glargine,Hum.rec.anlog [Lantus Solostar] 30 unit SQ HS Furosemide [Lasix] 80 mg PO DAILY Carvedilol [Coreg] 25 mg PO BID Potassium Chloride ER [K-Dur 10] 10 meq PO BID Nitroglycerin Sl Tabs [Nitrostat] 0.4 mg PO Q5M PRN PRN Reason: Chest Pain Discharge Medication List Allopurinol [Zyloprim] 200 mg PO DAILY 10/27/13 [History] Aspirin EC [Ecotrin Low Dose] 81 mg PO DAILY 10/27/13 [History] Ergocalciferol (Vitamin D2) [Drisdol] 50,000 unit PO MO 10/27/13 [History] Famotidine [Pepcid] 20 mg PO DAILY 10/27/13 [History] Atorvastatin [Lipitor] 20 mg PO HS 12/30/16 [History] Clopidogrel [Plavix] 75 mg PO DAILY #90 tab 07/15/17 [Rx] Carvedilol [Coreg] 25 mg PO BID 07/18/19 [History] Furosemide [Lasix] 80 mg PO DAILY 07/18/19 [History] Insulin Glargine,Hum.rec.anlog [Lantus Solostar] 30 unit SQ HS 07/18/19 [History] Insulin Lispro [humaLOG Kwikpen] 15 unit SQ AC-TID 07/18/19 [History] Nitroglycerin Sl Tabs [Nitrostat] 0.4 mg PO Q5M PRN 07/18/19 [History] Potassium Chloride ER [K-Dur 10] 10 meq PO BID 07/18/19 [History] hydrALAZINE HCL [Apresoline] 25 mg PO BID 07/18/19 [History] Azithromycin [Zithromax] 500 mg PO DAILY #5 tab 07/20/19 [Rx] Follow up Appointment(s)/Referral(s): Varun Santamaria MD [STAFF PHYSICIAN] - 2 Weeks Sahil Carmona DO [Primary Care Provider] - 2 Weeks Ganga Orosco DO [STAFF PHYSICIAN] - 2 Weeks Ambulatory/Diagnostic Orders: Complete Blood Count w/diff [LAB.AMB] Time Frame: 2 Weeks, Location: None Selected Patient Instructions/Handouts: Pneumonitis (DC) Activity/Diet/Wound Care/Special Instructions: Covid-19 quarantine, results pending. Confirm nephrology and cardiology follow- up prior to discharge Discharge Disposition: HOME WITH HOME HEALTH SERVICES
[2019-07-21] MEDS ORDERED: PANTOPRAZOLE 40 MG TABLET PO SCH (07:30)
[2019-07-21] MEDS ORDERED: AZITHROMYCIN 500 MG TAB PO SCH (09:00)
== END 2019-07-20 16:16 | disposition home or self-care (01) | DRG 291 ==
LOC: EC 14:33 → 5NMEDONC 17:25 → 6NMEDSUR 20:59
PROVIDERS: ADMIT Family Medicine; ATTEND Family Medicine
DX: I13.0 Hypertensive heart and chronic kidney disease with heart failure and stage 1 through stage 4 chronic kidney disease, or unspecified chronic kidney disease (principal); I50.43 Acute on chronic combined systolic (congestive) and diastolic (congestive) heart failure; E87.2 Acidosis; J44.0 Chronic obstructive pulmonary disease with (acute) lower respiratory infection; N17.9 Acute kidney failure, unspecified; E11.22 Type 2 diabetes mellitus with diabetic chronic kidney disease; E66.01 Morbid (severe) obesity due to excess calories; E78.5 Hyperlipidemia, unspecified; E87.6 Hypokalemia; I25.10 Atherosclerotic heart disease of native coronary artery without angina pectoris; K21.9 Gastro-esophageal reflux disease without esophagitis; J20.1 Acute bronchitis due to Hemophilus influenzae; N18.3 Chronic kidney disease, stage 3 (moderate); T50.2X5A Adverse effect of carbonic-anhydrase inhibitors, benzothiadiazides and other diuretics, initial encounter; I25.2 Old myocardial infarction; Z79.4 Long term (current) use of insulin; Z79.02 Long term (current) use of antithrombotics/antiplatelets; Z79.82 Long term (current) use of aspirin; Z79.899 Other long term (current) drug therapy; Z82.49 Family history of ischemic heart disease and other diseases of the circulatory system; Z83.3 Family history of diabetes mellitus; Z87.442 Personal history of urinary calculi; Z95.5 Presence of coronary angioplasty implant and graft; Z68.34 Body mass index [BMI] 34.0-34.9, adult; Z82.3 Family history of stroke
CPT/HCPCS: 36415; 71045; 71046; 76604; 80048; 80053; 83605; 83735; 83880; 84484; 85025; 85610; 85730; 87040; 87070; 87205; 87502; 87634; 93005; 93306; 94640; 94760; 96365; 96367; 96375; 99285

== ENCOUNTER → 2019-08-04 | Outpatient (CLI) | payer MEDICARE ==
[2019-08-04 17:17] LABS: African American GFR (CKD) 21.7 (60.0-200.0); Anion Gap 8.9 mmol/L (4.00-12.00); BUN/Creat Ratio 12.19 Ratio (12.00-20.00); Calcium 8.4 mg/dL (8.7-10.3); Carbon Dioxide 26.1 mmol/L (21.6-31.8); Non-African American GFR(CKD) 18.7 (60.0-200.0); Potassium 3.8 mmol/L (3.5-5.5)
== END | disposition home or self-care (01) ==
LOC: LABWHC1 08:25
PROVIDERS: ATTEND Internal Medicine Nephrology
DX: N18.3 Chronic kidney disease, stage 3 (moderate) (principal)
CPT/HCPCS: 36415; 80048

== ENCOUNTER → 2019-08-04 | Outpatient (CLI) | payer MEDICARE ==
--- NOTE | 2019-08-04 09:05 | US ---
EXAMINATION TYPE: US chest DATE OF EXAM: 08/04/2019 COMPARISON: CLINICAL HISTORY: J91.8 pleural effusion. TECHNIQUE: Targeted ultrasound of the posterior lower bilateral hemithoraces EXAM MEASUREMENTS: Right Pleural Effusion pocket size: 2.5 cm Left Pleural Effusion pocket size: 9.8 cm Left skin surface to fluid distance: 3.3 cm Right side NOT marked for possible thoracentesis outside the dept due to small sized clear fluid pock et. Left side marked for possible thoracentesis outside the dept. Pulmonologists are able to review the images in the patient?s EMR. IMPRESSIONS: Small left pleural effusion with depth measured at 9.8 cm. Trace right pleural effusion insufficient for thoracentesis.
== END | disposition home or self-care (01) ==
LOC: RADUSWWP 08:21
PROVIDERS: ATTEND Internal Medicine Critical Care Medicine
DX: J90 Pleural effusion, not elsewhere classified (principal); R06.02 Shortness of breath
CPT/HCPCS: 76604

== ENCOUNTER 2019-08-18 08:59 | Day surgery (SDC) | payer MEDICARE ==
[2019-08-18 10:25] LABS: Mean Platelet Volume 8.8; Platelet Count 241 k/uL (150-450)
[2019-08-18 10:31] LABS: INR 1.1 (<1.2); Prothrombin Time 11.1 sec (9.0-12.0)
[2019-08-18 10:44] VITALS: RESP 18; TEMP 97.7
--- NOTE | 2019-08-18 11:40 | XR ---
EXAMINATION TYPE: XR chest 1V DATE OF EXAM: 08/18/2019 HISTORY: Shortness of breath. COMPARISON: 07/20/2019 TECHNIQUE: Single view of the chest is submitted. FINDINGS: Demonstrated are scattered senescent parenchymal change. Mixed perihilar and basilar infiltrates persist. Small left-sided pleural effusion. The heart is stable. Hilar and mediastinal structures are within normal limits. Degenerative changes are seen of the dorsal spine. IMPRESSION: 1. Mixed perihilar and basilar infiltrates persist. Small left-sided pleural effusion.
[2019-08-18 12:00] VITALS: BP 168/80; PULSE 72
--- NOTE | 2019-08-18 12:43 | US ---
EXAMINATION TYPE: US thoracentesis DATE OF EXAM: 08/18/2019 COMPARISON: NONE HISTORY: Pleural effusion. FINDINGS: Maximal barrier technique was utilized. The skin overlying a suitable pocket of fluid was localized and the overlying skin prepped and draped. Lidocaine was used for local anesthesia. Ultras ound was used with sterile technique. A 5 Danish catheter over guide needle was advanced into the pl eural fluid collection using ultrasound guidance and the needle removed, catheter advanced. Approxim ately 1 liter(s) of serous fluid was removed. Catheter was withdrawn and hemostasis achieved. There is no immediate complication. The patient discharged in stable condition without complication. Asse ssment obtained for laboratory analysis IMPRESSION: STATUS POST ULTRASOUND GUIDED THORACENTESIS, POST PROCEDURE CHEST X-RAY PENDING. THIS OK OCEDURE WAS PERFORMED BY THE UNDERSIGNED.
[2019-08-18 13:48] LABS: Color,BF Yellow
[2019-08-18 13:49] LABS: Appearance,BF Clear; Nucleated Cells, Body Fluid 144 /uL; RBC, Body Fluid 33 /uL
[2019-08-18 13:50] LABS: Mononuclear WBC,Body Fluid 98 %; Polynuclear WBC,Body Fluid 2 %; Total Cells Counted,Body Fluid 100
[2019-08-18 20:28] LABS: Glucose, BF Source Pleural Fluid; Glucose, Body Fluid 119 mg/dL; LDH, Body Fluid Source Pleural Fluid; Total Protein, Body Fluid 1049 mg/dL
== END 2019-08-18 11:50 | disposition home or self-care (01) ==
LOC: RADPROMAIN 08:59
PROVIDERS: ATTEND Internal Medicine Critical Care Medicine
DX: J90 Pleural effusion, not elsewhere classified (principal)
CPT/HCPCS: 32555; 36415; 71045; 82945; 83615; 84157; 85049; 85610; 87070; 87075; 87116; 87205; 87206; 88108; 88305; 89050

== ENCOUNTER → 2019-09-14 | Outpatient (CLI) | payer MEDICARE ==
[2019-09-14 08:50] LABS: Basophils % (A) 1 %; Eosinophils # (A) 0.3 k/uL (0-0.7); Eosinophils % (A) 3 %; HCT 28.2 % (39.0-53.0); Hypochromasia Marked; Lymphocytes # (A) 0.9 k/uL (1.0-4.8); Lymphocytes % (A) 12 %; MCH 29.6 pg (25.0-35.0); MCHC 30.7 g/dL (31.0-37.0); MCV 96.4 fL (80.0-100.0); Mean Platelet Volume 8.6; Monocytes # (A) 0.4 k/uL (0-1.0); Monocytes % (A) 6 %; Neutrophils # (A) 5.7 k/uL (1.3-7.7); Neutrophils % (A) 77 %; Platelet Count 314 k/uL (150-450); Poikilocytosis Slight; RBC 2.92 m/uL (4.30-5.90); RDW 15.2 % (11.5-15.5); WBC 7.4 k/uL (3.8-10.6)
[2019-09-14 08:55] LABS: HGB 8.6 gm/dL (13.0-17.5)
[2019-09-14 09:21] LABS: Appearance,Urine Clear (Clear); Bilirubin,Urine Negative (Negative); Blood,Urine Small (Negative); Color,Urine Yellow; Glucose,Urine (UA) Negative (Negative); Ketones,Urine Negative (Negative); Leukocyte Esterase,Urine Negative (Negative); Mucus,Urine Rare /hpf; Nitrite,Urine Negative (Negative); Protein,Urine 3+ (Negative); RBC,Urine 2 /hpf (0-5); Specific Gravity,Urine 1.016 (1.001-1.035); Urobilinogen,Urine <2.0 mg/dL (<2.0); WBC,Urine 7 /hpf (0-5)
[2019-09-14 16:31] LABS: Ferritin 22.7 ng/mL (22.0-322.0)
[2019-09-14 17:28] LABS: Hemoglobin A1C 5.7 % (4.0-6.0)
[2019-09-14 17:32] LABS: % Iron Saturation 6.19 (15.00-50.00); African American GFR (CKD) 29.3 (60.0-200.0); Albumin 3.5 g/dL (3.80-4.90); Anion Gap 9.4 mmol/L (4.00-12.00); BUN/Creat Ratio 14.4 Ratio (12.00-20.00); Calcium 8.7 mg/dL (8.7-10.3); Carbon Dioxide 25.6 mmol/L (21.6-31.8); Chol/HDL Ratio 2.68; LDL Cholesterol,Calculated 32.6 mg/dL (0.0-131.0); Magnesium 2.1 mg/dL (1.5-2.4); Non-African American GFR(CKD) 25.3 (60.0-200.0); Phosphorus 4.6 mg/dL (2.4-5.1); Potassium 3.6 mmol/L (3.5-5.5); Uric Acid 5.9 mg/dL (3.7-8.7); VLDL Calculation 14.4 mg/dL (5.00-40.00)
[2019-09-14 17:36] LABS: Urine Creatinine 101.2 mg/dL
== END | disposition home or self-care (01) ==
LOC: LABWHC1 08:12
PROVIDERS: ATTEND Nurse Practitioner Family
DX: N25.81 Secondary hyperparathyroidism of renal origin (principal); M10.9 Gout, unspecified; N39.0 Urinary tract infection, site not specified; D63.1 Anemia in chronic kidney disease; N18.3 Chronic kidney disease, stage 3 (moderate); R80.9 Proteinuria, unspecified; E11.65 Type 2 diabetes mellitus with hyperglycemia
CPT/HCPCS: 36415; 80048; 80061; 81001; 82040; 82043; 82306; 82570; 82728; 83036; 83540; 83550; 83735; 83970; 84100; 84156; 84550; 85025

== ENCOUNTER → 2019-09-30 | Outpatient (CLI) | payer MEDICARE | END | disposition home or self-care (01) | LOC: LABWHC1 11:52 | PROVIDERS: ATTEND Internal Medicine Critical Care Medicine | DX: U07.1 COVID-19 (principal) ==

== ENCOUNTER 2019-10-03 08:53 | Day surgery (SDC) | payer MEDICARE ==
[2019-10-03 09:47] VITALS: TEMP 97.4
[2019-10-03 09:51] LABS: Mean Platelet Volume 8.6; Platelet Count 235 k/uL (150-450)
[2019-10-03 09:56] LABS: INR 1.2 (<1.2); Prothrombin Time 11.9 sec (9.0-12.0)
--- NOTE | 2019-10-03 10:54 | XR ---
EXAMINATION TYPE: XR chest 1V DATE OF EXAM: 10/03/2019 COMPARISON: 09/20/2019 HISTORY: Post left thoracentesis TECHNIQUE: Single frontal view of the chest is obtained. FINDINGS: Interval near complete resolution of left-sided pleural effusion with cardiomegaly and pos toperative change. Mild chronic interstitial venous congestion or lung disease. Cannot exclude a tiny less than 5% left sided pneumothorax. IMPRESSION: 1. Cannot exclude a tiny less than 5% left-sided pneumothorax. Recommend follow-up x-ray.
--- NOTE | 2019-10-03 11:57 | US ---
Ultrasound-guided therapeutic and diagnostic thoracentesis DATE OF EXAM: 10/03/2019 CLINICAL HISTORY: Left pleural effusion The procedure was discussed with the patient. The risks, complications, benefits, and alternatives we re discussed and any questions were answered. Informed consent was obtained. The patient was placed supine on the ultrasound table and prepped and draped in the usual sterile fas hion. All elements of maximal barrier and sterile technique were utilized. Under ultrasound guidance, access into the pleural space was obtained, via the thoracentesis catheter system and direct ultrasound guidance. Ap proximately 1.0 liters of straw-colored fluid was removed. The patient was stable throughout the procedure and remained stable upon discharge from Department of Radiology. IMPRESSION: 1. Successful therapeutic and diagnostic thoracentesis under ultrasound guidance.
[2019-10-03 12:41] VITALS: RESP 16
--- NOTE | 2019-10-03 13:09 | XR ---
EXAMINATION TYPE: XR chest 1V portable DATE OF EXAM: 10/03/2019 COMPARISON: 10/03/2019 HISTORY: Post left thoracentesis TECHNIQUE: Single frontal view of the chest is obtained. FINDINGS: Tiny residual left pleural effusion and basilar consolidation. Coarsened interstitium is s table. Heart is enlarged there is postoperative change. Atherosclerotic change of the aorta. No evide nce of pneumothorax. IMPRESSION: 1. No evidence of pneumothorax. 2. Correlate for mild venous congestion stable from prior exam
[2019-10-03 13:15] VITALS: BP 159/75; PULSE 77
== END 2019-10-03 13:18 | disposition home or self-care (01) ==
LOC: RADPROMAIN 08:53
PROVIDERS: ATTEND Internal Medicine Critical Care Medicine
DX: J90 Pleural effusion, not elsewhere classified (principal); Z79.02 Long term (current) use of antithrombotics/antiplatelets
CPT/HCPCS: 32555; 36415; 71045; 82272; 82945; 82947; 83615; 84157; 85049; 85610; 87070; 87075; 87116; 87205; 87206; 88108; 88305; 89050

== ENCOUNTER → 2019-10-10 | Outpatient (CLI) | payer MEDICARE ==
[2019-10-10 17:53] LABS: African American GFR (CKD) 24.5 (60.0-200.0); Albumin 3.4 g/dL (3.80-4.90); Albumin/Globulin Ratio 1.62 (1.60-3.17); Anion Gap 10.3 mmol/L (4.00-12.00); BUN/Creat Ratio 13.1 Ratio (12.00-20.00); Calcium 8.4 mg/dL (8.7-10.3); Carbon Dioxide 25.7 mmol/L (21.6-31.8); Globulin 2.1 g/dL (1.6-3.3); Non-African American GFR(CKD) 21.1 (60.0-200.0); Potassium 3.6 mmol/L (3.5-5.5); Total Bilirubin 0.6 mg/dL (0.2-1.2); Total Protein 5.5 g/dL (6.2-8.2)
== END | disposition home or self-care (01) ==
LOC: LABWHC1 09:09
PROVIDERS: ATTEND Internal Medicine Nephrology
DX: N18.3 Chronic kidney disease, stage 3 (moderate) (principal)
CPT/HCPCS: 36415; 80053

== ENCOUNTER 2019-10-24 11:42 | Inpatient (IN) | payer MEDICARE ==
[2019-10-24 12:07] LABS: Glucose,Whole Blood 146 mg/dL (75-99)
[2019-10-24] MEDS ORDERED: ACETAMINOPHEN TAB 500 MG TAB PO STA (12:11)
--- NOTE | 2019-10-24 12:14 | ED ---
General Adult HPI - General Chief complaint: Extremity Injury, Lower Stated complaint: leg infection Time Seen by Provider: 10/24/19 12:01 Source: patient, family, RN notes reviewed Mode of arrival: ambulatory Limitations: no limitations - History of Present Illness Initial comments: Patient is a pleasant [age]-year-old male presenting to the emergency department with concerns for leg infection and possibly fluid overload. Majority of history comes from the . Patient did scratch his right leg a couple of weeks ago. Yesterday they noticed it started getting red and blistering. Patient does have some chronic shaking however he is shaking more than normal. Patient seems fatigued and breathing faster than normal. Patient had a little bit of confusion last night which family has a difficult time describing. Confusion has improved today. No chest pain. Patient and family both are concerned regarding bilateral leg swelling. - Related Data Home Medications Medication Instructions Recorded Confirmed Allopurinol [Zyloprim] 100 mg PO BID 10/27/13 10/24/19 Aspirin EC [Ecotrin Low Dose] 81 mg PO DAILY 10/27/13 10/24/19 Ergocalciferol (Vitamin D2) 50,000 unit PO KEATING 10/27/13 10/24/19 [Drisdol] Famotidine [Pepcid] 20 mg PO DAILY 10/27/13 10/24/19 Atorvastatin [Lipitor] 20 mg PO HS 12/30/16 10/24/19 Carvedilol [Coreg] 25 mg PO BID 07/18/19 10/24/19 Furosemide [Lasix] 80 mg PO DAILY 07/18/19 10/24/19 Insulin Glargine,Hum.rec.anlog 30 unit SQ DAILY 07/18/19 10/24/19 [Lantus Solostar] Nitroglycerin Sl Tabs [Nitrostat] 0.4 mg PO Q5M PRN 07/18/19 10/24/19 Potassium Chloride ER [K-Dur 10] 10 meq PO BID 07/18/19 10/24/19 hydrALAZINE HCL [Apresoline] 25 mg PO BID 07/18/19 10/24/19 Furosemide [Lasix] 40 mg PO Q48H PRN 10/24/19 10/24/19 INSULIN LISPRO (humaLOG) [humaLOG] 10 units SQ BID 10/24/19 10/24/19 Previous Rx's Medication Instructions Recorded Clopidogrel [Plavix] 75 mg PO DAILY #90 tab 07/15/17 Allergies Allergy/AdvReac Type Severity Reaction Status Date / Time No Known Allergies Allergy Verified 10/24/19 13:25 Review of Systems ROS Statement: Those systems with pertinent positive or pertinent negative responses have been documented in the HPI. ROS Other: All systems not noted in ROS Statement are negative. Constitutional: Reports: as per HPI, chills Eyes: Denies: eye pain ENT: Denies: ear pain Respiratory: Reports: as per HPI. Denies: cough, dyspnea Cardiovascular: Denies: chest pain Endocrine: Reports: fatigue Gastrointestinal: Denies: abdominal pain Genitourinary: Denies: dysuria Musculoskeletal: Denies: back pain Skin: Reports: as per HPI, rash Neurological: Reports: as per HPI, confusion Past Medical History Past Medical History: Coronary Artery Disease (CAD), Diabetes Mellitus, G ERD/Reflux, Hyperlipidemia, Hypertension, Myocardial Infarction ([place]), Renal Disease Additional Past Medical History / Comment(s): Kidney stones; Renal insufficency - "UNDER CONTROL;". Trouble Breathing - neg for covid 19 Last Myocardial Infarction Date:: 2009 History of Any Multi-Drug Resistant Organisms: None Reported Past Surgical History: Coronary Bypass/CABG, Heart Catheterization, Heart Catheterization With Stent Additional Past Surgical History / Comment(s): STENTS X3. HAD CABG 2009. C. CATH 07/01/17. Past Anesthesia/Blood Transfusion Reactions: No Reported Reaction Date of Last Stent Placement:: 07-14-17 Past Psychological History: No Psychological Hx Reported Smoking Status: Never smoker Past Alcohol Use History: Rare Past Drug Use History: None Reported - Past Family History Mother Family Medical History: CVA/TIA, Diabetes Mellitus Father Family Medical History: CVA/TIA, Myocardial Infarction ([place]) Additional Family Medical History / Comment(s): mother: htn, dm. General Exam Limitations: no limitations General appearance: alert, in no apparent distress Head exam: Present: atraumatic Eye exam: Present: normal appearance, PERRL ENT exam: Present: mucous membranes dry Neck exam: Present: normal inspection Respiratory exam: Present: normal lung sounds bilaterally Cardiovascular Exam: Present: regular rate, normal rhythm GI/Abdominal exam: Present: soft. Absent: distended, tenderness Extremities exam: Present: pedal edema (+3 bilateral) Neurological exam: Present: alert. Absent: motor sensory deficit Expanded Patient oriented to: Present: person, place. Absent: time Psychiatric exam: Present: normal affect, normal mood Skin exam: Present: rash (Right lower leg erythema from below the ankle to towar ds the knee. There is also some blistering and clear drainage) Course Vital Signs 10/24/19 10/24/19 11:53 13:10 Temperature 99 F Pulse Rate 82 82 Respiratory 18 16 Rate Blood Pressure 132/79 167/107 O2 Sat by Pulse 96 98 Oximetry EKG Findings - EKG Comments: EKG Findings:: Sinus rhythm at 76. PA 176. QRS 114. QT 414. QTC 465. Left axis. Poor R-wave progression. Q wave in lead III. No acute ST change. Medical Decision Making - Medical Decision Making Patient reevaluated. Patient updated. Case discussed with Dr. Carmona, who will admit his patient. - Lab Data Result diagrams: 10/24/19 12:09 10/24/19 12:09 Lab Results 10/24/19 10/24/19 10/24/19 Range/Units 12:05 12:09 12:09 WBC 22.6 H (3.8-10.6) k/uL RBC 3.91 L (4.30-5.90) m/uL Hgb 11.1 L (13.0-17.5) gm/dL Hct 37.5 L (39.0-53.0) % MCV 95.8 (80.0-100.0) fL MCH 28.4 (25.0-35.0) pg MCHC 29.7 L (31.0-37.0) g/dL RDW 18.9 H (11.5-15.5) % Plt Count 208 (150-450) k/uL Neutrophils % 94 % Lymphocytes % 2 % Monocytes % 2 % Eosinophils % 1 % Basophils % 0 % Neutrophils # 21.2 H (1.3-7.7) k/uL Lymphocytes # 0.5 L (1.0-4.8) k/uL Monocytes # 0.5 (0-1.0) k/uL Eosinophils # 0.2 (0-0.7) k/uL Basophils # 0.1 (0-0.2) k/uL Hypochromasia Marked Anisocytosis Slight Macrocytosis Slight PT 11.7 (9.0-12.0) sec INR 1.2 H (<1.2) APTT 23.0 (22.0-30.0) sec Sodium (137-145) mmol/L Potassium (3.5-5.1) mmol/L Chloride (98-107) mmol/L Carbon Dioxide (22-30) mmol/L Anion Gap mmol/L BUN (9-20) mg/dL Creatinine (0.66-1.25) mg/dL Est GFR (CKD-EPI)AfAm (>60 ml/min/1.73 sqM) Est GFR (CKD-EPI)NonAf (>60 ml/min/1.73 sqM) Glucose (74-99) mg/dL POC Glucose (mg/dL) 146 H (75-99) mg/dL POC Glu Automation Tester ID [place], Bebe Plasma Lactic Acid Marcus (0.7-2.0) mmol/L Calcium (8.4-10.2) mg/dL Total Bilirubin (0.2-1.3) mg/dL AST (17-59) U/L ALT (4-49) U/L Alkaline Phosphatase (38-126) U/L NT-Pro-B Natriuret Pep pg/mL Total Protein (6.3-8.2) g/dL Albumin (3.5-5.0) g/dL 10/24/19 10/24/19 10/24/19 Range/Units 12:09 12:10 12:11 WBC (3.8-10.6) k/uL RBC (4.30-5.90) m/uL Hgb (13.0-17.5) gm/dL Hct (39.0-53.0) % MCV (80.0-100.0) fL MCH (25.0-35.0) pg MCHC (31.0-37.0) g/dL RDW (11.5-15.5) % Plt Count (150-450) k/uL Neutrophils % % Lymphocytes % % Monocytes % % Eosinophils % % Basophils % % Neutrophils # (1.3-7.7) k/uL Lymphocytes # (1.0-4.8) k/uL Monocytes # (0-1.0) k/uL Eosinophils # (0-0.7) k/uL Basophils # (0-0.2) k/uL Hypochromasia Anisocytosis Macrocytosis PT (9.0-12.0) sec INR (<1.2) APTT (22.0-30.0) sec Sodium 144 (137-145) mmol/L Potassium 4.1 (3.5-5.1) mmol/L Chloride 109 H (98-107) mmol/L Carbon Dioxide 25 (22-30) mmol/L Anion Gap 10 mmol/L BUN 41 H (9-20) mg/dL Creatinine 3.13 H (0.66-1.25) mg/dL Est GFR (CKD-EPI)AfAm 22 (>60 ml/min/1.73 sqM) Est GFR (CKD-EPI)NonAf 19 (>60 ml/min/1.73 sqM) Glucose 145 H (74-99) mg/dL POC Glucose (mg/dL) (75-99) mg/dL POC Glu Automation Tester ID Plasma Lactic Acid Marcus 2.5 H* (0.7-2.0) mmol/L Calcium 8.7 (8.4-10.2) mg/dL Total Bilirubin 1.0 (0.2-1.3) mg/dL AST 42 (17-59) U/L ALT 26 (4-49) U/L Alkaline Phosphatase 73 (38-126) U/L NT-Pro-B Natriuret Pep 69031 pg/mL Total Protein 6.2 L (6.3-8.2) g/dL Albumin 3.2 L (3.5-5.0) g/dL - Radiology Data Radiology results: report reviewed (Computed tomography scan of the brain shows no acute process), image reviewed (Right tib-fib x-ray shows subcutaneous edema and soft tissue swelling. Degenerative changes. Two-view chest x-ray shows left lower lobe infiltrate. Pleural effusion.) Disposition Clinical Impression: Congestive heart failure, Pneumonia, Cellulitis Disposition: ADMITTED IP TO THIS HOSP Condition: Serious Is patient prescribed a controlled substance at d/c from ED?: No Decision Time: 13:47
[2019-10-24 12:52] LABS: Anisocytosis Slight; Basophils # (A) 0.1 k/uL (0-0.2); Basophils % (A) 0 %; Eosinophils # (A) 0.2 k/uL (0-0.7); Eosinophils % (A) 1 %; HCT 37.5 % (39.0-53.0); HGB 11.1 gm/dL (13.0-17.5); Hypochromasia Marked; Lymphocytes # (A) 0.5 k/uL (1.0-4.8); Lymphocytes % (A) 2 %; MCH 28.4 pg (25.0-35.0); MCHC 29.7 g/dL (31.0-37.0); MCV 95.8 fL (80.0-100.0); Macrocytosis Slight; Mean Platelet Volume 8.5; Monocytes # (A) 0.5 k/uL (0-1.0); Monocytes % (A) 2 %; Neutrophils # (A) 21.2 k/uL (1.3-7.7); Neutrophils % (A) 94 %; Platelet Count 208 k/uL (150-450); RBC 3.91 m/uL (4.30-5.90); RDW 18.9 % (11.5-15.5); WBC 22.6 k/uL (3.8-10.6)
[2019-10-24 13:02] LABS: INR 1.2 (<1.2); Prothrombin Time 11.7 sec (9.0-12.0)
[2019-10-24 13:09] LABS: Albumin 3.2 g/dL (3.5-5.0); Calcium 8.7 mg/dL (8.4-10.2); Potassium 4.1 mmol/L (3.5-5.1); Total Protein 6.2 g/dL (6.3-8.2)
--- NOTE | 2019-10-24 13:09 | XR ---
EXAMINATION TYPE: XR tibia fibula RT DATE OF EXAM: 10/24/2019 CLINICAL HISTORY: Pain and swelling. Infection. TECHNIQUE: Two views of the right leg are obtained. COMPARISON: None. FINDINGS: There is no acute fracture or dislocation seen in the right tibia or fibula. Fairly modera te tricompartment joint space loss in the right knee. Right ankle mortise symmetry is preserved. Mode rate to severe diffuse subcutaneous edema and soft tissue swelling is noted. Posterior vascular calci fication is present. IMPRESSION: As above.
--- NOTE | 2019-10-24 13:09 | XR ---
EXAMINATION TYPE: XR chest 2V DATE OF EXAM: 10/24/2019 COMPARISON: 10/03/2019 TECHNIQUE: PA and lateral views submitted. HISTORY: Altered mental status FINDINGS: There is postoperative change with left lower lobe consolidation small bilateral effusions. Diffuse i nterstitial pattern. No pneumothorax. Diffuse osteopenia with arthropathy shoulders.. Hypertrophic a nd degenerative change of the spine. IMPRESSION: 1. Left lower lobe infiltrate and pleural effusion correlate for CHF otherwise consider pneumonia..
--- NOTE | 2019-10-24 13:26 | CT ---
EXAMINATION TYPE: CT brain wo con DATE OF EXAM: 10/24/2019 COMPARISON: None INDICATION: Altered mental status DLP: 1516 mGycm, Automated exposure control for dose reduction was used. CONTRAST: None CT of the brain is performed utilizing 3 mm thick sections through the posterior fossa and 3 mm thick sections through the remaining calvarium. Study is performed within 24 hours of arrival to the hosp ital. Motion artifact is present causing limitation on the evaluation. No abnormal hyperdensity is present to suggest an acute intracranial hemorrhage. No mass lesion is evident. No acute infarcts are evident. Periventricular white matter hypodensity is present, likely on the bas is of chronic white matter ischemic changes. Ventricles and sulci are prominent for the patient age. Paranasal sinuses and mastoid air cells within the [id number] are clear. IMPRESSIONS: 1. Atrophy with periventricular white matter ischemic changes.
[2019-10-24] MEDS ORDERED: AZITHROMYCIN 500 MG in SODIUM CHLORIDE 0.9% 250 ML IVPB STA (13:47)
[2019-10-24] MEDS ORDERED: ASPIRIN 325 MG TAB PO STA (13:47)
[2019-10-24] MEDS ORDERED: PNEUMONIA PROTOCOL UTILIZED 1 EACH MISC PO PRN (13:47)
[2019-10-24] MEDS: FUROSEMIDE 10 MG/ML 4 ML VIAL IV SCH ×2 (14:34→20:49)
[2019-10-24 17:39] LABS: Bacteria,Urine Rare /hpf; Color,Urine Yellow; Hyaline Casts,Urine 14 /lpf (0-2); Mucus,Urine Rare /hpf; RBC,Urine 49 /hpf (0-5); Squamous Epithelial Cell,Urine 1 /hpf (0-4)
[2019-10-24 17:40] LABS: Appearance,Urine Clear (Clear); Bilirubin,Urine Negative (Negative); Blood,Urine Moderate (Negative); Glucose,Urine (UA) 1+ (Negative); Ketones,Urine Negative (Negative); Nitrite,Urine Negative (Negative); Protein,Urine 3+ (Negative); Urobilinogen,Urine <2.0 mg/dL (<2.0)
[2019-10-24 17:41] LABS: Leukocyte Esterase,Urine Negative (Negative); WBC,Urine 5 /hpf (0-5)
[2019-10-24] MEDS: NITROGLYCERIN OINT 1 INCH/GM PACKET TOPICAL SCH ×2 (20:15→20:49)
[2019-10-24 20:18] LABS: Glucose,Whole Blood 156 mg/dL (75-99)
[2019-10-24] MEDS ORDERED: NITROGLYCERIN SL TABS 0.4 MG TAB SUBLINGUAL PRN (20:25)
[2019-10-24] MEDS: ATORVASTATIN 20 MG TAB PO SCH (20:47)
[2019-10-24] MEDS: allopurinoL 100 MG TAB PO SCH (20:47)
[2019-10-24] MEDS: carvediloL 12.5 MG TAB PO SCH (20:48)
[2019-10-24] MEDS: hydrALAZINE HCL 25 MG TAB PO SCH (20:48)
[2019-10-24] MEDS: POTASSIUM CHLORIDE ER 10 MEQ TAB.ER.PRT PO SCH (20:48)
[2019-10-24] MEDS: INSULIN ASPART (NovoLOG) 100 UNIT/ML VIAL SQ SCH (20:48)
[2019-10-24] MEDS ORDERED: HEPARIN SODIUM,PORCINE 5,000 UNIT/ML 1 ML VIAL IV ONE (21:35)
[2019-10-24] MEDS: HEPARIN SOD,PORK IN 0.45% NACL 25,000 UNIT in 0.45% NACL 1 250ML.BAG IV SCH (21:52)
[2019-10-24] MEDS: guaiFENesin-DM 100-10MG/5ML 10 ML CUP PO PRN (22:51)
[2019-10-25 04:20] LABS: Anisocytosis Slight; Basophils % (A) 0 %; Eosinophils # (A) 0.1 k/uL (0-0.7); Eosinophils % (A) 1 %; HCT 34.4 % (39.0-53.0); HGB 10.5 gm/dL (13.0-17.5); Hypochromasia Marked; Lymphocytes # (A) 0.7 k/uL (1.0-4.8); Lymphocytes % (A) 4 %; MCHC 30.6 g/dL (31.0-37.0); Macrocytosis Slight; Mean Platelet Volume 8.8; Monocytes # (A) 0.5 k/uL (0-1.0); Monocytes % (A) 3 %; Neutrophils # (A) 15.2 k/uL (1.3-7.7); Neutrophils % (A) 92 %; Platelet Count 163 k/uL (150-450); RBC 3.51 m/uL (4.30-5.90); RDW 18.8 % (11.5-15.5); WBC 16.6 k/uL (3.8-10.6)
[2019-10-25] MEDS: FUROSEMIDE 10 MG/ML 4 ML VIAL IV SCH (06:10)
[2019-10-25] MEDS: carvediloL 12.5 MG TAB PO SCH ×2 (06:10→17:40)
[2019-10-25 07:07] LABS: Glucose,Whole Blood 140 mg/dL (75-99)
[2019-10-25] MEDS: INSULIN ASPART (NovoLOG) 100 UNIT/ML VIAL SQ SCH ×4 (07:08→21:04)
[2019-10-25 08:42] LABS: Glucose,Whole Blood 124 mg/dL (75-99)
[2019-10-25] MEDS: ASPIRIN 81 MG PO SCH (08:47)
[2019-10-25] MEDS: allopurinoL 100 MG TAB PO SCH ×2 (08:47→20:54)
[2019-10-25] MEDS: CLOPIDOGREL 75 MG TAB PO SCH (08:47)
[2019-10-25] MEDS: INSULIN DETEMIR (LEVEMIR) 100 UNIT/ML SYR SQ SCH (08:47)
[2019-10-25] MEDS: AZITHROMYCIN 500 MG TAB PO SCH (08:48)
[2019-10-25] MEDS: FAMOTIDINE 20 MG TAB PO SCH (08:48)
[2019-10-25] MEDS: hydrALAZINE HCL 25 MG TAB PO SCH ×2 (08:48→20:53)
[2019-10-25] MEDS: POTASSIUM CHLORIDE ER 10 MEQ TAB.ER.PRT PO SCH ×2 (08:48→20:54)
[2019-10-25] MEDS: NITROGLYCERIN OINT 1 INCH/GM PACKET TOPICAL SCH ×4 (08:48→22:17)
[2019-10-25] MEDS ORDERED: ASPIRIN 325 MG TAB PO SCH (09:00)
--- NOTE | 2019-10-25 09:00 | XR ---
EXAMINATION TYPE: XR chest 1V DATE OF EXAM: 10/25/2019 COMPARISON: 10/24/2019 HISTORY: Cough TECHNIQUE: Single frontal view of the chest is obtained. FINDINGS: There is progressive consolidation in involving the left hemithorax. Right lung demonstrat es basilar subsegmental consolidation. Diffuse osteopenia with postoperative changes noted. No pneumo thorax. IMPRESSION: There is increasing consolidation of the left likely representing a combination of infil trate and pleural effusion.
--- NOTE | 2019-10-25 09:17 | CONS ---
CONSULTATION CHIEF COMPLAINT: Shortness of breath and leg edema. This is a 69-year-old gentleman with multiple and complex problems including diabetes, hypertension, dyslipidemia, coronary artery disease, prior myocardial infarction and angioplasty, who presented to hospital complaining of leg edema and shortness of breath. He states that these symptoms have been going on for the last several days have gotten particularly worse yesterday due to which he comes in and gets admitted to hospital. The patient has evidence of fluid overload in the form of bilateral leg edema and certainly has cellulitis over his lower extremities. The patient also complains of feeling fatigued, tired and was also somewhat confused at home. Since being admitted to hospital, his cardiac enzymes have come back elevated with a troponin of .6.1 and 6.1. His white cell count is high, platelet count is normal. EKG shows sinus rhythm, left axis deviation and nonspecific ST-T wave changes. The patient's clinical presentation is consistent with an acute exacerbation of chronic congestive heart failure probably systolic and also acute non ST-segment elevation NV. He also has renal failure with a creatinine of 3.1 and he normally has elevated creatinine. His BNP is elevated at 20,800 and his serum potassium is normal at 4.1. The patient has multiple ongoing problems including exacerbation of renal failure, acute non ST-segment elevation NV, acute exacerbation of chronic systolic heart failure. Since he is pain-free and hemodynamically stable, we are not going to do any invasive procedures on him at this time. We are going to seek Nephrology input and once his renal functions are stable heart failure is better controlled, cellulitis is improved, we will consider performing a cardiac catheterization. PAST MEDICAL HISTORY: Significant for hypertension, diabetes, dyslipidemia, coronary artery disease status post prior angioplasty and congestive heart failure. CURRENT MEDICATIONS: Include hydralazine 25 t.i.d., K-Dur 10 b.i.d. insulin, Lasix, Pepcid, Plavix, Coreg, Lipitor, aspirin and Zyloprim. No known drug allergies. FAMILY HISTORY: Negative for premature coronary artery disease. SOCIAL HISTORY: Negative for current smoking, EtOH abuse, or drug abuse. REVIEW OF SYSTEMS: HEENT is unremarkable. Cardiac as described above. Respiratory as described above. GI negative. Genitourinary significant for renal failure. Psychosocial negative. Endocrine negative. Constitutional significant for fatigue, tiredness, not feeling well. The rest of the system review is not relevant. PHYSICAL EXAMINATION: On exam, patient is afebrile. Heart rate is 80 beats per minute, blood pressure is 113/55, respiratory rate 18, O2 sat is 95% on 2 L. There is no jugular venous distention. Carotid upstroke is diminished. There is no bruit. Chest exam reveals good air entry bilaterally. Heart exam reveals first and second heart sounds, a systolic murmur at the left lower sternal border. Abdomen is soft. Exam of extremities reveals bilateral pitting edema, chronic stasis changes and cellulitis. ASSESSMENT: Acute non ST-segment elevation NV, acute exacerbation of chronic systolic heart failure, cellulitis, acute worsening of chronic renal failure. PLAN: We will treat the patient with intravenous heparin,IV Lasix. Continue the beta blockers, IV antibiotics, aspirin, Lipitor, nitrates and obtain a 2D echo decide on further course of action based on how things evolve from here. MMFLORENCE / ANTONN: [id number] /
--- NOTE | 2019-10-25 09:43 | P.NPCON ---
History of Present Illness - Reason for Consult acute renal failure, chronic renal failure - History of Present Illness Reason for consultation: Acute kidney injury on chronic kidney disease History of present illness: Patient is a 69-year-old male seen in renal consultation for acute kidney injury on chronic kidney disease. Patient has chronic kidney disease stage IV with baseline creatinine in the range of 2.5-3. Etiology is diabetic kidney disease and cardiorenal syndrome. Patient presented to the hospital due to lower extremity edema. Patient states he fell on his porch and does scratch poultice legs. He has noticed worsening of erythema as well as swelling since then. Patient has history of systolic CHF with ejection fraction of 40-45%. He is currently maintained on IV Lasix 40 mg every 8 hours. He has been voiding with urine output has been on the lower side according to the nurse. No hematuria or dysuria. Denies use of nonsteroidals. He is maintained on antibiotics as well for the cellulitis. No vomiting or diarrhea. Oral intake fair. Patient states he has gained under 5 pounds in the last 2 weeks. Hemodynamically stable. No fever or chills. No abdominal pain. No dizziness or syncopal episodes. Vital signs are stable. General: The patient appeared well nourished and normally developed. HEENT: Head exam is unremarkable. Neck is without jugular venous distension. LUNGS: Lungs are clear to auscultation and percussion. Breath sounds decreased. HEART: Rate and Rhythm are regular. First and second heart sounds normal. No murmurs, rubs or gallops. ABDOMEN: Soft, nontender. Obese. EXTREMITITES: 2+ edema. Erythema noted. No obvious drainage. Past Medical History Past Medical History: Coronary Artery Disease (CAD), Chest Pain / Angina, Heart Failure, Diabetes Mellitus, Eye Disorder, GERD/Reflux, Hyperlipidemia, Hy pertension, Myocardial Infarction ([place]), Pneumonia, Renal Disease Additional Past Medical History / Comment(s): IDDM type II, bilateral diabetic retinopathy, CKD stage III, nephrolithiasis, bronchitis, L pleural effusion, recently received 2 iron infusions for anemia. Last Myocardial Infarction Date:: 2009 History of Any Multi-Drug Resistant Organisms: None Reported Past Surgical History: Coronary Bypass/CABG, Heart Catheterization, Heart Catheterization With Stent Additional Past Surgical History / Comment(s): 2009 CABG 5 vessel, bilateral cataract removals/lens implants, oral surgery Past Anesthesia/Blood Transfusion Reactions: No Reported Reaction, Motion Sickness Date of Last Stent Placement:: 08/05/17 Smoking Status: Never smoker - Past Family History Mother Family Medical History: CVA/TIA, Diabetes Mellitus Father Family Medical History: CVA/TIA, Myocardial Infarction ([place]) Additional Family Medical History / Comment(s): mother: htn, dm. Medications and Allergies Home Medications Medication Instructions Recorded Confirmed Type Allopurinol [Zyloprim] 100 mg PO BID 10/27/13 10/24/19 History Aspirin EC [Ecotrin Low Dose] 81 mg PO DAILY 10/27/13 10/24/19 History Ergocalciferol (Vitamin D2) 50,000 unit PO KEATING 10/27/13 10/24/19 History [Drisdol] Famotidine [Pepcid] 20 mg PO DAILY 10/27/13 10/24/19 History Atorvastatin [Lipitor] 20 mg PO HS 12/30/16 10/24/19 History Clopidogrel [Plavix] 75 mg PO DAILY #90 tab 07/15/17 10/24/19 Rx Carvedilol [Coreg] 25 mg PO BID 07/18/19 10/24/19 History Furosemide [Lasix] 80 mg PO DAILY 07/18/19 10/24/19 History Insulin Glargine,Hum.rec.anlog 30 unit SQ DAILY 07/18/19 10/24/19 History [Lantus Solostar] Nitroglycerin Sl Tabs [Nitrostat] 0.4 mg PO Q5M PRN 07/18/19 10/24/19 History Potassium Chloride ER [K-Dur 10] 10 meq PO BID 07/18/19 10/24/19 History hydrALAZINE HCL [Apresoline] 25 mg PO BID 07/18/19 10/24/19 History Furosemide [Lasix] 40 mg PO Q48H PRN 10/24/19 10/24/19 History INSULIN LISPRO (humaLOG) [humaLOG] 10 units SQ BID 10/24/19 10/24/19 History Allergies Allergy/AdvReac Type Severity Reaction Status Date / Time No Known Allergies Allergy Verified 10/24/19 13:25 Physical Exam Vitals: Vital Signs Temp Pulse Pulse Resp BP BP Pulse Ox 10/25/19 08:00 98.5 F 75 17 149/70 98 10/25/19 04:00 98.3 F 80 18 113/55 95 10/25/19 00:00 97.6 F 76 18 109/47 93 L 10/24/19 20:00 97.2 F L 89 18 145/88 96 10/24/19 19:15 98 F 88 18 164/82 95 10/24/19 18:00 76 19 120/68 99 10/24/19 17:30 70 11 L 164/150 98 10/24/19 17:00 68 18 146/121 97 10/24/19 16:30 64 20 135/79 97 10/24/19 16:00 66 17 122/78 98 10/24/19 15:30 74 13 166/121 97 10/24/19 15:05 99.1 F 10/24/19 15:00 71 23 136/77 97 10/24/19 14:30 70 24 136/82 96 10/24/19 14:00 69 21 152/83 97 10/24/19 13:30 77 20 167/107 98 10/24/19 13:10 82 16 167/107 98 10/24/19 12:30 80 22 105/83 99 10/24/19 11:53 99 F 82 18 132/79 96 Intake and Output 10/24/19 10/25/19 10/25/19 22:59 06:59 14:59 Intake Total 66.667 Output Total 100 Balance -33.333 Intake: Intake, IV Titration 66.667 Amount Heparin Sod,Pork in 0.45% 66.667 NaCl 25,000 unit In 0.45 % NaCl 1 250ml.bag @ 8.68 UNITS/KG/HR 10 mls/hr IV .Q24H [facility] Rx#:[id number] Output: Urine 100 Other: Voiding Method Urinal Urinal Urinal # Voids 1 1 # Bowel Movements 1 Weight 115.212 kg 116 kg Results - Lab Results Most recent lab results Calcium 8.7 mg/dL (8.4-10.2) 10/24/19 12:09 10/25/19 03:54 10/24/19 12:09 Assessment and Plan Plan: Assessment: 1. Acute kidney injury mostly prerenal secondary to cardiorenal syndrome. Creatinine 3.13 on admission. Rule out urinary retention. 2. Chronic kidney disease stage IV baseline creatinine 2.5-3 secondary to diabetic kidney disease and cardiorenal syndrome. 3. Volume overload. 4. Acute on chronic systolic CHF with ejection fraction of 40-45%. 5. Insulin-dependent diabetes mellitus. 6. Hypertension with chronic kidney disease. Controlled. 7. Lower extremity cellulitis maintained on antibiotics. 8. Non-ST elevated myocardial infarction maintained on IV heparin. Cardiology following. Plan: I will change Lasix to 60 mg IV twice daily. 1500 mL fluid restriction and low-salt diet. Daily weights. Strict I's and O's. Serial bladder scans to rule out urinary retention. Avoid nephrotoxins. Continue to monitor renal function and urine output. Thank you for the consultation. I will continue to follow the patient with you during his hospital stay.
[2019-10-25] MEDS: HEPARIN SODIUM,PORCINE 5,000 UNIT/ML 1 ML VIAL IV PRN ×2 (11:42→18:21)
[2019-10-25 11:57] LABS: Hemoglobin A1C 5.7 % (4.0-6.0)
[2019-10-25 12:20] LABS: Glucose,Whole Blood 173 mg/dL (75-99)
[2019-10-25 16:48] LABS: Glucose,Whole Blood 138 mg/dL (75-99)
--- NOTE | 2019-10-25 17:03 | P.HPIM ---
History of Present Illness H&P Date: 10/25/19 Chief Complaint: Worsening bilateral lower extremity edema, status post injury, dyspnea This is 69-year-old gentleman with history of CAD, [place], CABG, cardiac catheterization with stents, diabetes mellitus, gastroesophageal reflux disease, hyperlipidemia, hypertension, renal failure and multiple other medical issues, presented to the ER with complaints of sustained a scratch to the right lower extremity 2 weeks ago, worsening redness, blistering with drainage and edema, accompanied by shortness of breath, occasional productive cough with white sputum. Per ER note, patient's family also disclosed patient had been exhibiting mild confusion. Denies nausea vomiting or diarrhea. Denies chest pain, palpitations. EKG reported sinus rhythm, sinus arrhythmia, inferior infar ct, age undetermined, troponins 6.13, 6.100 .Denies lightheadedness, dizziness or focal deficits. Afebrile, T-max 99.1 , WBC 22.6, trending down to 16.6, maintaining O2 sats in the 90s on 2 L nasal cannula, creatinine 3.13, blood sugars fairly controlled, 140s to 170s with hemaglobin A1c of 5.7. Lactic acid 1.8. Hemoglobin 10.5. Brain CT reporting no acute infarcts or mass lesions evident, atrophy with paraventricular white matter ischemic changes. Initial Chest x-ray reporting left lower lobe infiltrate and pleural effusion, correlate for CHF or pneumonia. Follow-up chest x-ray reported increasing consolidation of the left representing combination of infiltrate and pleural effusion, right lung demonstrated bibasilar subsegmental consolidation. X-ray of right tibia/fibula reported no acute fracture or dislocation, fairly moderate tricompartment joint space loss in the right knee, moderate to severe diffuse subcutaneous edema and soft tissue swelling. Review of Systems ROS Other: All systems not noted in ROS Statement are negative. ROS Statement: Those systems with pertinent positive or pertinent negative responses have been documented in the HPI. Past Medical History Past Medical History: Coronary Artery Disease (CAD), Chest Pain / Angina, Heart Failure, Diabetes Mellitus, Eye Disorder, GERD/Reflux, Hyperlipidemia, Hypertension, Myocardial Infarction ([place]), Pneumonia, Renal Disease Additional Past Medical History / Comment(s): IDDM type II, bilateral diabetic retinopathy, CKD stage III, nephrolithiasis, bronchitis, L pleural effusion, recently received 2 iron infusions for anemia. Last Myocardial Infarction Date:: 2009 History of Any Multi-Drug Resistant Organisms: None Reported Past Surgical History: Coronary Bypass/CABG, Heart Catheterization, Heart Catheterization With Stent Additional Past Surgical History / Comment(s): 2009 CABG 5 vessel, bilateral cataract removals/lens implants, oral surgery Past Anesthesia/Blood Transfusion Reactions: No Reported Reaction, Motion Sick ness Date of Last Stent Placement:: 08/05/17 Smoking Status: Never smoker - Past Family History Mother Family Medical History: CVA/TIA, Diabetes Mellitus Father Family Medical History: CVA/TIA, Myocardial Infarction ([place]) Additional Family Medical History / Comment(s): mother: htn, dm. Medications and Allergies Home Medications Medication Instructions Recorded Confirmed Type Allopurinol [Zyloprim] 100 mg PO BID 10/27/13 10/24/19 History Aspirin EC [Ecotrin Low Dose] 81 mg PO DAILY 10/27/13 10/24/19 History Ergocalciferol (Vitamin D2) 50,000 unit PO KEATING 10/27/13 10/24/19 History [Drisdol] Famotidine [Pepcid] 20 mg PO DAILY 10/27/13 10/24/19 History Atorvastatin [Lipitor] 20 mg PO HS 12/30/16 10/24/19 History Clopidogrel [Plavix] 75 mg PO DAILY #90 tab 07/15/17 10/24/19 Rx Carvedilol [Coreg] 25 mg PO BID 07/18/19 10/24/19 History Furosemide [Lasix] 80 mg PO DAILY 07/18/19 10/24/19 History Insulin Glargine,Hum.rec.anlog 30 unit SQ DAILY 07/18/19 10/24/19 History [Lantus Solostar] Nitroglycerin Sl Tabs [Nitrostat] 0.4 mg PO Q5M PRN 07/18/19 10/24/19 History Potassium Chloride ER [K-Dur 10] 10 meq PO BID 07/18/19 10/24/19 History hydrALAZINE HCL [Apresoline] 25 mg PO BID 07/18/19 10/24/19 History Furosemide [Lasix] 40 mg PO Q48H PRN 10/24/19 10/24/19 History INSULIN LISPRO (humaLOG) [humaLOG] 10 units SQ BID 10/24/19 10/24/19 History Allergies Allergy/AdvReac Type Severity Reaction Status Date / Time No Known Allergies Allergy Verified 10/24/19 13:25 Physical Exam Vitals: Vital Signs Temp Pulse Pulse Resp BP BP Pulse Ox 10/25/19 08:00 98.5 F 75 17 149/70 98 10/25/19 04:00 98.3 F 80 18 113/55 95 10/25/19 00:00 97.6 F 76 18 109/47 93 L 10/24/19 20:00 97.2 F L 89 18 145/88 96 10/24/19 19:15 98 F 88 18 164/82 95 10/24/19 18:00 76 19 120/68 99 10/24/19 17:30 70 11 L 164/150 98 10/24/19 17:00 68 18 146/121 97 10/24/19 16:30 64 20 135/79 97 10/24/19 16:00 66 17 122/78 98 10/24/19 15:30 74 13 166/121 97 10/24/19 15:05 99.1 F 10/24/19 15:00 71 23 136/77 97 10/24/19 14:30 70 24 136/82 96 10/24/19 14:00 69 21 152/83 97 10/24/19 13:30 77 20 167/107 98 10/24/19 13:10 82 16 167/107 98 10/24/19 12:30 80 22 105/83 99 10/24/19 11:53 99 F 82 18 132/79 96 Intake and Output 10/24/19 10/25/19 10/25/19 22:59 06:59 14:59 Intake Total 66.667 Output Total 100 Balance -33.333 Intake: Intake, IV Titration 66.667 Amount Heparin Sod,Pork in 0.45% 66.667 NaCl 25,000 unit In 0.45 % NaCl 1 250ml.bag @ 8.68 UNITS/KG/HR 10 mls/hr IV .Q24H [facility] Rx#:[id number] Output: Urine 100 Other: Voiding Method Urinal Urinal Urinal # Voids 1 1 # Bowel Movements 1 Weight 115.212 kg 116 kg PHYSICAL EXAM: VITAL SIGNS: As above GENERAL: Sitting up at in bed, tired, fatigued HEENT: Conjunctivae normal. eyes normal. NECK: No JVD. No thyroid enlargement. No LNs CARDIOVASCULAR: S1, S2 regular. Systolic murmur RESPIRATION: Breath sounds diminished in the bases. No rhonchi, scattered left- sided crackles, no wheezing ABDOMEN: Soft, nontender . No guarding. no masses palpable. No ascites, No hepatosplenomegaly.Bowel sounds heard. LEGS: Positive pitting , weeping edema. Chronic venous stasis, no calf tenderness PSYCHIATRY: Alert and oriented X3, mood and affect normal. NERVOUS SYSTEM: Cranial N 2-12 grossly normal. Moves all 4 limbs. Diffuse weakness No focal deficits. Strength and sensation grossly intact.. Skin: no rash Lymphatic system. No LN neck axilla. Results CBC & Chem 7: 10/25/19 03:54 10/24/19 12:09 Labs: Abnormal Lab Results - Last 24 Hours (Table) 10/24/19 10/24/19 10/24/19 Range/Units 12:05 12:09 12:09 WBC 22.6 H (3.8-10.6) k/uL RBC 3.91 L (4.30-5.90) m/uL Hgb 11.1 L (13.0-17.5) gm/dL Hct 37.5 L (39.0-53.0) % MCHC 29.7 L (31.0-37.0) g/dL RDW 18.9 H (11.5-15.5) % Neutrophils # 21.2 H (1.3-7.7) k/uL Lymphocytes # 0.5 L (1.0-4.8) k/uL INR 1.2 H (<1.2) APTT (22.0-30.0) sec Chloride (98-107) mmol/L BUN (9-20) mg/dL Creatinine (0.66-1.25) mg/dL Glucose (74-99) mg/dL POC Glucose (mg/dL) 146 H (75-99) mg/dL Plasma Lactic Acid Marcus (0.7-2.0) mmol/L Troponin I (0.000-0.034) ng/mL Total Protein (6.3-8.2) g/dL Albumin (3.5-5.0) g/dL Urine RBC (0-5) /hpf Urine Bacteria (None) /hpf Hyaline Casts (0-2) /lpf Urine Mucus (None) /hpf 10/24/19 10/24/19 10/24/19 Range/Units 12:09 12:10 12:21 WBC (3.8-10.6) k/uL RBC (4.30-5.90) m/uL Hgb (13.0-17.5) gm/dL Hct (39.0-53.0) % MCHC (31.0-37.0) g/dL RDW (11.5-15.5) % Neutrophils # (1.3-7.7) k/uL Lymphocytes # (1.0-4.8) k/uL INR (<1.2) APTT (22.0-30.0) sec Chloride 109 H (98-107) mmol/L BUN 41 H (9-20) mg/dL Creatinine 3.13 H (0.66-1.25) mg/dL Glucose 145 H (74-99) mg/dL POC Glucose (mg/dL) (75-99) mg/dL Plasma Lactic Acid Marcus 2.5 H* (0.7-2.0) mmol/L Troponin I (0.000-0.034) ng/mL Total Protein 6.2 L (6.3-8.2) g/dL Albumin 3.2 L (3.5-5.0) g/dL Urine RBC 49 H (0-5) /hpf Urine Bacteria Rare H (None) /hpf Hyaline Casts 14 H (0-2) /lpf Urine Mucus Rare H (None) /hpf 10/24/19 10/24/19 10/25/19 Range/Units 20:18 20:45 02:23 WBC (3.8-10.6) k/uL RBC (4.30-5.90) m/uL Hgb (13.0-17.5) gm/dL Hct (39.0-53.0) % MCHC (31.0-37.0) g/dL RDW (11.5-15.5) % Neutrophils # (1.3-7.7) k/uL Lymphocytes # (1.0-4.8) k/uL INR (<1.2) APTT (22.0-30.0) sec Chloride (98-107) mmol/L BUN (9-20) mg/dL Creatinine (0.66-1.25) mg/dL Glucose (74-99) mg/dL POC Glucose (mg/dL) 156 H (75-99) mg/dL Plasma Lactic Acid Marcus (0.7-2.0) mmol/L Troponin I 6.130 H* 6.100 H* (0.000-0.034) ng/mL Total Protein (6.3-8.2) g/dL Albumin (3.5-5.0) g/dL Urine RBC (0-5) /hpf Urine Bacteria (None) /hpf Hyaline Casts (0-2) /lpf Urine Mucus (None) /hpf 10/25/19 10/25/19 10/25/19 Range/Units 03:54 03:54 07:05 WBC 16.6 H (3.8-10.6) k/uL RBC 3.51 L (4.30-5.90) m/uL Hgb 10.5 L (13.0-17.5) gm/dL Hct 34.4 L (39.0-53.0) % MCHC 30.6 L (31.0-37.0) g/dL RDW 18.8 H (11.5-15.5) % Neutrophils # 15.2 H (1.3-7.7) k/uL Lymphocytes # 0.7 L (1.0-4.8) k/uL INR (<1.2) APTT 33.4 H (22.0-30.0) sec Chloride (98-107) mmol/L BUN (9-20) mg/dL Creatinine (0.66-1.25) mg/dL Glucose (74-99) mg/dL POC Glucose (mg/dL) 140 H (75-99) mg/dL Plasma Lactic Acid Marcus (0.7-2.0) mmol/L Troponin I (0.000-0.034) ng/mL Total Protein (6.3-8.2) g/dL Albumin (3.5-5.0) g/dL Urine RBC (0-5) /hpf Urine Bacteria (None) /hpf Hyaline Casts (0-2) /lpf Urine Mucus (None) /hpf 10/25/19 Range/Units 08:40 WBC (3.8-10.6) k/uL RBC (4.30-5.90) m/uL Hgb (13.0-17.5) gm/dL Hct (39.0-53.0) % MCHC (31.0-37.0) g/dL RDW (11.5-15.5) % Neutrophils # (1.3-7.7) k/uL Lymphocytes # (1.0-4.8) k/uL INR (<1.2) APTT (22.0-30.0) sec Chloride (98-107) mmol/L BUN (9-20) mg/dL Creatinine (0.66-1.25) mg/dL Glucose (74-99) mg/dL POC Glucose (mg/dL) 124 H (75-99) mg/dL Plasma Lactic Acid Marcus (0.7-2.0) mmol/L Troponin I (0.000-0.034) ng/mL Total Protein (6.3-8.2) g/dL Albumin (3.5-5.0) g/dL Urine RBC (0-5) /hpf Urine Bacteria (None) /hpf Hyaline Casts (0-2) /lpf Urine Mucus (None) /hpf Thrombosis Risk Factor Assmnt - Choose All That Apply Any of the Below Risk Factors Present?: Yes Each Factor Represents 1 point: Heart failure (<1month), Obesity (BMI >25), Sepsis (< 1month) Other Risk Factors: Yes Each Risk Factor Represents 2 Points: Age 61-74 years Other congenital or acquired thrombophilia - If yes, enter type in comment: No Thrombosis Risk Factor Assessment Total Risk Factor Score: 5 Thrombosis Risk Factor Assessment Level: High Risk Assessment and Plan Assessment: Dyspnea,secondary to acute on chronic diastolic CHF, left lower lobe pneumonia, coronavirus not detected. Left lower lobe infiltrate with small bilateral pleural effusions Acute hypoxic respiratory failure secondary to the above Acute NSTEMI, on heparin drip Acute metabolic encephalopathy, multifactorial, secondary to all the above Acute renal failure, prerenal secondary to cardiorenal syndrome Chronic kidney disease, stage IV, baseline 2.5-3 Cellulitis of bilateral lower extremities, right greater than left Leukocytosis CAD, history of [place], CABG, cardiac catheterization with stent Diabetes mellitus, hemoglobin A1c 5.7 Gastroesophageal reflux disease Hypertension Hyperlipidemia Hypokalemia secondary to diuresing Urinary retention being ruled out Morbid obesity, BMI 34.7 Plan: Continue current medication regime ,monitoring and symptomatic treatment. Fluid restrictions of 1500, diurese on Lasix IV push as per nephrology. Aggressive pulmonary toileting with nebulized bronchodilators. Antibiotics of azithromycin and Rocephin initiated. Significantly elevated troponins, anticoagulated on heparin drip, eventually cardiac catheterization as per cardiology .maintain beta blockers, statin, aspirin, nitrates . Echo ordered .nephrology, cardiology consulted .bladder scanning to rule out urinary retention .Home meds have been reviewed and resumed accordingly. Close monitoring of renal function, electrolytes with repeat labs ordered for a.m. Prognosis guarded given multiple complex medical issues. The impression and plan of care has been dictated as directed. : I performed a history and examination of this patient, discussed the same with the dictator. I agree with the dictator's note ,documented as a scribe. Any additional findings or plans will be noted.
[2019-10-25] MEDS: HEPARIN SOD,PORK IN 0.45% NACL 25,000 UNIT in 0.45% NACL 1 250ML.BAG IV SCH (18:22)
[2019-10-25 20:12] LABS: Glucose,Whole Blood 108 mg/dL (75-99)
[2019-10-25] MEDS: ATORVASTATIN 20 MG TAB PO SCH (20:54)
[2019-10-25] MEDS: FUROSEMIDE 10 MG/ML 10 ML VIAL IV SCH (20:54)
[2019-10-26 02:42] LABS: Glucose,Whole Blood 55 mg/dL (75-99)
[2019-10-26 03:00] LABS: Glucose,Whole Blood 62 mg/dL (75-99)
[2019-10-26 03:14] LABS: Glucose,Whole Blood 65 mg/dL (75-99)
[2019-10-26 03:43] LABS: Glucose,Whole Blood 79 mg/dL (75-99)
[2019-10-26 06:37] LABS: Calcium 8.2 mg/dL (8.4-10.2); Magnesium 2.4 mg/dL (1.6-2.3); Potassium 4.1 mmol/L (3.5-5.1)
[2019-10-26 06:47] LABS: Anisocytosis Slight; Basophils # (A) 0.1 k/uL (0-0.2); Basophils % (A) 1 %; Eosinophils # (A) 0.1 k/uL (0-0.7); Eosinophils % (A) 1 %; HCT 32.8 % (39.0-53.0); HGB 9.8 gm/dL (13.0-17.5); Hypochromasia Marked; Lymphocytes # (A) 0.7 k/uL (1.0-4.8); Lymphocytes % (A) 6 %; MCHC 29.8 g/dL (31.0-37.0); MCV 97.4 fL (80.0-100.0); Macrocytosis Slight; Mean Platelet Volume 9.2; Monocytes # (A) 0.5 k/uL (0-1.0); Monocytes % (A) 4 %; Neutrophils # (A) 10.2 k/uL (1.3-7.7); Neutrophils % (A) 88 %; Platelet Count 166 k/uL (150-450); RBC 3.36 m/uL (4.30-5.90); RDW 18.9 % (11.5-15.5); WBC 11.6 k/uL (3.8-10.6)
[2019-10-26 07:12] LABS: Glucose,Whole Blood 97 mg/dL (75-99)
[2019-10-26] MEDS: INSULIN ASPART (NovoLOG) 100 UNIT/ML VIAL SQ SCH ×4 (08:28→21:50)
[2019-10-26] MEDS: INSULIN DETEMIR (LEVEMIR) 100 UNIT/ML SYR SQ SCH (08:39)
[2019-10-26] MEDS: FUROSEMIDE 10 MG/ML 10 ML VIAL IV SCH (08:40)
[2019-10-26] MEDS: NITROGLYCERIN OINT 1 INCH/GM PACKET TOPICAL SCH ×4 (08:40→21:49)
[2019-10-26] MEDS: POTASSIUM CHLORIDE ER 10 MEQ TAB.ER.PRT PO SCH ×2 (08:41→21:48)
[2019-10-26] MEDS: ASPIRIN 81 MG PO SCH (08:41)
[2019-10-26] MEDS: carvediloL 12.5 MG TAB PO SCH ×2 (08:41→17:11)
[2019-10-26] MEDS: AZITHROMYCIN 500 MG TAB PO SCH (08:41)
[2019-10-26] MEDS: hydrALAZINE HCL 25 MG TAB PO SCH ×2 (08:41→21:48)
[2019-10-26] MEDS: CLOPIDOGREL 75 MG TAB PO SCH (08:41)
[2019-10-26] MEDS: FAMOTIDINE 20 MG TAB PO SCH (08:41)
[2019-10-26] MEDS: allopurinoL 100 MG TAB PO SCH ×2 (08:41→21:48)
[2019-10-26] MEDS: HEPARIN SOD,PORK IN 0.45% NACL 25,000 UNIT in 0.45% NACL 1 250ML.BAG IV SCH (08:50)
[2019-10-26] MEDS ORDERED: SILVER sulfADIAZINE Cream 400 GM 1 APPLIC APPLIC TOPICAL SCH (09:00)
[2019-10-26 09:21] LABS: Poikilocytosis (M) Present; Polychromasia Present
[2019-10-26 12:05] LABS: Glucose,Whole Blood 141 mg/dL (75-99)
[2019-10-26] MEDS: FUROSEMIDE 100 MG in SODIUM CHLORIDE 0.9% 90 ML IV SCH ×2 (12:27→21:47)
--- NOTE | 2019-10-26 15:06 | P.PN ---
Subjective Progress Note Date: 10/26/19 This is 69-year-old gentleman with history of CAD, ME, CABG, cardiac catheterization with stents, diabetes mellitus, gastroesophageal reflux disease, hyperlipidemia, hypertension, renal failure and multiple other medical issues, presented to the ER with complaints of sustained a scratch to the right lower extremity 2 weeks ago, worsening redness, blistering with drainage and edema, accompanied by shortness of breath, occasional productive cough with white sputum. Per ER note, patient's family also disclosed patient had been exhibiting mild confusion. Denies nausea vomiting or diarrhea. Denies chest pain, palpitations. EKG reported sinus rhythm, sinus arrhythmia, inferior infarct, age undetermined, troponins 6.13, 6.100 .Denies lightheadedness, dizziness or focal deficits. Afebrile, T-max 99.1 , WBC 22.6, trending down to 16.6, maintaining O2 sats in the 90s on 2 L nasal cannula, creatinine 3.13, blood sugars fairly controlled, 140s to 170s with hemaglobin A1c of 5.7. Lactic acid 1.8. Hemoglobin 10.5. Brain CT reporting no acute infarcts or mass lesions evident, atrophy with paraventricular white matter ischemic changes. Initial Chest x-ray reporting left lower lobe infiltrate and pleural effusion, correlate for CHF or pneumonia. Follow-up chest x-ray reported increasing consolidation of the left representing combination of infiltrate and pleural effusion, right lung demonstrated bibasilar subsegmental consolidation. X-ray of right tibia/fibula reported no acute fracture or dislocation, fairly moderate tricompartment joint space loss in the right knee, moderate to severe diffuse subcutaneous edema and soft tissue swelling. [id number] maintained on Lasix IV push with minimal urine output, minimal improvement in bilateral lower extremity edema. Converted to Lasix drip as per nephrology. Creatinine mildly worsened, up to 3.63 Vital signs stable, maintaining O2 sats in the 90s on 2 L nasal cannula. Afebrile, WBC trending down, 11.6. Denies chest pain, palpitations. Objective - Vital Signs Vital signs: Vital Signs Temp 96.1 F L 10/26/19 08:00 Pulse 73 10/26/19 08:00 Resp 18 10/26/19 08:00 BP 143/82 10/26/19 08:00 Pulse Ox 95 10/26/19 08:00 Intake & Output 10/25/19 10/26/19 10/26/19 18:59 06:59 18:59 Intake Total 1383.333 250 100 Output Total 320 210 200 Balance 1063.333 40 -100 Weight 116 kg 116.7 kg Intake: Intake, IV Titration 183.333 250 Amount Heparin Sod,Pork in 0.45% 183.333 250 NaCl 25,000 unit In 0.45 % NaCl 1 250ml.bag @ 8.68 UNITS/KG/HR 10 mls/hr IV .Q24H [facility] Rx#:[id number] Oral 1200 100 Output: Urine 320 210 200 Other: Voiding Method Urinal Urinal # Voids 1 2 1 # Bowel Movements 1 - Exam PHYSICAL EXAM: VITAL SIGNS: As above GENERAL: Sitting up at in bed, no acute distress HEENT: Conjunctivae normal. eyes normal. Oral mucosa moist. NECK: No JVD. No thyroid enlargement. No LNs CARDIOVASCULAR: S1, S2 regular. Systolic murmur RESPIRATION: Breath sounds diminished in the bases. No rhonchi, scattered left-sided crackles, no wheezing ABDOMEN: Soft, nontender . No guarding. no masses palpable. Bowel sounds he gelacio. LEGS: Positive pitting , weeping edema. Chronic venous stasis, no calf tenderness PSYCHIATRY: Alert and oriented X3, mood and affect normal. NERVOUS SYSTEM: Cranial N 2-12 grossly normal. Moves all 4 limbs. Diffuse weakness No focal deficits. Strength and sensation grossly intact.. Skin: no rash, warm and dry - Labs CBC & Chem 7: 10/26/19 05:39 10/26/19 05:39 Labs: Abnormal Lab Results - Last 24 Hours (Table) 10/25/19 10/25/19 10/25/19 Range/Units 10:31 12:19 16:46 WBC (3.8-10.6) k/uL RBC (4.30-5.90) m/uL Hgb (13.0-17.5) gm/dL Hct (39.0-53.0) % MCHC (31.0-37.0) g/dL RDW (11.5-15.5) % Neutrophils # (1.3-7.7) k/uL Lymphocytes # (1.0-4.8) k/uL APTT 35.5 H (22.0-30.0) sec Chloride (98-107) mmol/L BUN (9-20) mg/dL Creatinine (0.66-1.25) mg/dL POC Glucose (mg/dL) 173 H 138 H (75-99) mg/dL Calcium (8.4-10.2) mg/dL Magnesium (1.6-2.3) mg/dL 10/25/19 10/25/19 10/26/19 Range/Units 17:30 20:10 00:48 WBC (3.8-10.6) k/uL RBC (4.30-5.90) m/uL Hgb (13.0-17.5) gm/dL Hct (39.0-53.0) % MCHC (31.0-37.0) g/dL RDW (11.5-15.5) % Neutrophils # (1.3-7.7) k/uL Lymphocytes # (1.0-4.8) k/uL APTT 38.5 H 43.7 H (22.0-30.0) sec Chloride (98-107) mmol/L BUN (9-20) mg/dL Creatinine (0.66-1.25) mg/dL POC Glucose (mg/dL) 108 H (75-99) mg/dL Calcium (8.4-10.2) mg/dL Magnesium (1.6-2.3) mg/dL 10/26/19 10/26/19 10/26/19 Range/Units 02:41 02:58 03:12 WBC (3.8-10.6) k/uL RBC (4.30-5.90) m/uL Hgb (13.0-17.5) gm/dL Hct (39.0-53.0) % MCHC (31.0-37.0) g/dL RDW (11.5-15.5) % Neutrophils # (1.3-7.7) k/uL Lymphocytes # (1.0-4.8) k/uL APTT (22.0-30.0) sec Chloride (98-107) mmol/L BUN (9-20) mg/dL Creatinine (0.66-1.25) mg/dL POC Glucose (mg/dL) 55 L 62 L 65 L (75-99) mg/dL Calcium (8.4-10.2) mg/dL Magnesium (1.6-2.3) mg/dL 10/26/19 10/26/19 Range/Units 05:39 05:39 WBC 11.6 H (3.8-10.6) k/uL RBC 3.36 L (4.30-5.90) m/uL Hgb 9.8 L (13.0-17.5) gm/dL Hct 32.8 L (39.0-53.0) % MCHC 29.8 L (31.0-37.0) g/dL RDW 18.9 H (11.5-15.5) % Neutrophils # 10.2 H (1.3-7.7) k/uL Lymphocytes # 0.7 L (1.0-4.8) k/uL APTT (22.0-30.0) sec Chloride 109 H (98-107) mmol/L BUN 53 H (9-20) mg/dL Creatinine 3.63 H (0.66-1.25) mg/dL POC Glucose (mg/dL) (75-99) mg/dL Calcium 8.2 L (8.4-10.2) mg/dL Magnesium 2.4 H (1.6-2.3) mg/dL Microbiology - Last 24 Hours (Table) 10/24/19 12:10 Blood Culture - Preliminary Blood No Growth after 24 hours Assessment and Plan Assessment: Dyspnea,secondary to acute on chronic diastolic CHF, left lower lobe pneumonia, coronavirus not detected. Left lower lobe infiltrate with small bilateral pleural effusions Acute hypoxic respiratory failure secondary to the above Acute NSTEMI, on heparin drip Acute metabolic encephalopathy, multifactorial, secondary to all the above Acute renal failure, prerenal secondary to cardiorenal syndrome Chronic kidney disease, stage IV, baseline 2.5-3 Cellulitis of bilateral lower extremities, right greater than left Leukocytosis CAD, history of ME, CABG, cardiac catheterization with stent Diabetes mellitus, hemoglobin A1c 5.7 Gastroesophageal reflux disease Hypertension Hyperlipidemia Hypokalemia secondary to diuresing Urinary retention being ruled out Morbid obesity, BMI 34.7 Plan: Continue current medication regime , beta blockers, statin, aspirin, nitrates,monitoring and symptomatic treatment. Diuretics as per nephrology. Fluid restrictions. Aggressive pulmonary toileting with nebulized bronchodilators, antibiotics. Anticoagulated on heparin drip, eventually cardiac catheterization;patient's associate director regulatory affairs is Dr. Wong. Close monitoring of renal function, electrolytes with repeat labs ordered for a.m. Prognosis guarded given multiple complex medical issues. The impression and plan of care has been dictated as directed. : I performed a history and examination of this patient, discussed the same with the dictator. I agree with the dictator's note ,documented as a scribe. Any additional findings or plans will be noted.
--- NOTE | 2019-10-26 15:07 | P.PN ---
Subjective Progress Note Date: 10/26/19 This is a 69-year-old gentleman with history of diabetes, hypertension, hyperlipidemia, coronary artery disease with prior ID and PCI who presented to the hospital with symptoms of bilateral lower extremity edema and symptoms of shortness of breath which had been going on for several days. He is currently receiving treatment for congestive heart failure, was on IV Lasix and had a very decreased urine output through the night last night. Therefore patient was initiated on IV Lasix drip by nephrology today. Repeat chest x-ray showed increasing consolidation of the left likely representing a combination of infiltrate and pleural effusion. Blood pressure 137/70 with a heart rate in the 60s, 99% on 2 L of oxygen. White blood cell count 11.6, hemoglobin 9.8, platelet count 166. Sodium 141, potassium 4.1, BUN 53, creatinine 3.6. Objective - Vital Signs Vital signs: Vital Signs Temp 96.1 F L 10/26/19 08:00 Pulse 63 10/26/19 12:00 Resp 16 10/26/19 12:00 BP 137/70 10/26/19 12:00 Pulse Ox 99 10/26/19 12:00 Intake & Output 10/25/19 10/26/19 10/26/19 18:59 06:59 18:59 Intake Total 1383.333 250 100 Output Total 320 210 200 Balance 1063.333 40 -100 Weight 116 kg 116.7 kg Intake: Intake, IV Titration 183.333 250 Amount Heparin Sod,Pork in 0.45% 183.333 250 NaCl 25,000 unit In 0.45 % NaCl 1 250ml.bag @ 8.68 UNITS/KG/HR 10 mls/hr IV .Q24H [facility] Rx#:[id number] Oral 1200 100 Output: Urine 320 210 200 Other: Voiding Method Urinal Urinal Urinal # Voids 1 2 1 # Bowel Movements 1 - Exam PHYSICAL EXAMINATION: GENERAL: 69-year-old gentleman in no acute distress at the time of my examination HEENT: Head is atraumatic, normocephalic. Pupils equal, round. Sclera anicteric. Conjunctiva are clear. Mucous membranes of the mouth are moist. Neck is supple. There is elevated jugular venous pressure. No carotid bruit is heard. HEART EXAMINATION: Heart S1, S2 normal. No murmur or gallop heard. CHEST EXAMINATION: Lungs are diminished bilaterally ABDOMEN: Soft, nontender. Bowel sounds are heard. No organomegaly noted. EXTREMITIES: 2+ peripheral pulses with 2-3+ evidence of peripheral edema and no calf tenderness noted. NEUROLOGIC patient is awake, alert and oriented 3 . . - Labs CBC & Chem 7: 10/26/19 05:39 10/26/19 05:39 Labs: Abnormal Lab Results - Last 24 Hours (Table) 10/25/19 10/25/19 10/25/19 Range/Units 16:46 17:30 20:10 WBC (3.8-10.6) k/uL RBC (4.30-5.90) m/uL Hgb (13.0-17.5) gm/dL Hct (39.0-53.0) % MCHC (31.0-37.0) g/dL RDW (11.5-15.5) % Neutrophils # (1.3-7.7) k/uL Lymphocytes # (1.0-4.8) k/uL APTT 38.5 H (22.0-30.0) sec Chloride (98-107) mmol/L BUN (9-20) mg/dL Creatinine (0.66-1.25) mg/dL POC Glucose (mg/dL) 138 H 108 H (75-99) mg/dL Calcium (8.4-10.2) mg/dL Magnesium (1.6-2.3) mg/dL 10/26/19 10/26/19 10/26/19 Range/Units 00:48 02:41 02:58 WBC (3.8-10.6) k/uL RBC (4.30-5.90) m/uL Hgb (13.0-17.5) gm/dL Hct (39.0-53.0) % MCHC (31.0-37.0) g/dL RDW (11.5-15.5) % Neutrophils # (1.3-7.7) k/uL Lymphocytes # (1.0-4.8) k/uL APTT 43.7 H (22.0-30.0) sec Chloride (98-107) mmol/L BUN (9-20) mg/dL Creatinine (0.66-1.25) mg/dL POC Glucose (mg/dL) 55 L 62 L (75-99) mg/dL Calcium (8.4-10.2) mg/dL Magnesium (1.6-2.3) mg/dL 10/26/19 10/26/19 10/26/19 Range/Units 03:12 05:39 05:39 WBC 11.6 H (3.8-10.6) k/uL RBC 3.36 L (4.30-5.90) m/uL Hgb 9.8 L (13.0-17.5) gm/dL Hct 32.8 L (39.0-53.0) % MCHC 29.8 L (31.0-37.0) g/dL RDW 18.9 H (11.5-15.5) % Neutrophils # 10.2 H (1.3-7.7) k/uL Lymphocytes # 0.7 L (1.0-4.8) k/uL APTT (22.0-30.0) sec Chloride 109 H (98-107) mmol/L BUN 53 H (9-20) mg/dL Creatinine 3.63 H (0.66-1.25) mg/dL POC Glucose (mg/dL) 65 L (75-99) mg/dL Calcium 8.2 L (8.4-10.2) mg/dL Magnesium 2.4 H (1.6-2.3) mg/dL 10/26/19 Range/Units 12:04 WBC (3.8-10.6) k/uL RBC (4.30-5.90) m/uL Hgb (13.0-17.5) gm/dL Hct (39.0-53.0) % MCHC (31.0-37.0) g/dL RDW (11.5-15.5) % Neutrophils # (1.3-7.7) k/uL Lymphocytes # (1.0-4.8) k/uL APTT (22.0-30.0) sec Chloride (98-107) mmol/L BUN (9-20) mg/dL Creatinine (0.66-1.25) mg/dL POC Glucose (mg/dL) 141 H (75-99) mg/dL Calcium (8.4-10.2) mg/dL Magnesium (1.6-2.3) mg/dL Microbiology - Last 24 Hours (Table) 10/24/19 12:10 Blood Culture - Preliminary Blood No Growth after 48 hours Assessment and Plan Plan: Assessment and plan: 1. Acute on chronic systolic CHF with ejection fraction of 40-45%. 2. Chronic kidney disease stage IV baseline creatinine 2.5-3 secondary to diabetic kidney disease and cardiorenal syndrome. 3. Volume overload. 4. Acute kidney injury mostly prerenal secondary to cardiorenal syndrome. Creatinine 3.13 on admission. Rule out urinary retention. 5. Insulin-dependent diabetes mellitus. 6. Hypertension with chronic kidney disease. Controlled. 7. Lower extremity cellulitis maintained on antibiotics. 8. Possible non-Q-wave myocardial infarction 9. Coronary artery disease with prior PCI Plan IV Lasix has been discontinued by nephrology and patient was initiated today on a Lasix drip. We will monitor the intake and output closely, monitor daily lytes BUN and creatinine. DNP note has been reviewed, I agree with a documented findings and plan of care. Patient was seen and examined.
[2019-10-26 17:07] LABS: Glucose,Whole Blood 100 mg/dL (75-99)
--- NOTE | 2019-10-26 17:28 | P.PN ---
Subjective Patient is seen in follow-up for acute kidney injury on chronic kidney disease. Patient has chronic kidney disease stage IV with baseline creatinine the range of 2.5-3. Remains edematous. Renal function worse due to diuresis. Denies chest pain or shortness of breath. Hemodynamically stable. Vital signs are stable. General: The patient appeared well nourished and normally developed. HEENT: Head exam is unremarkable. Neck is without jugular venous distension. LUNGS: Breath sounds decreased. HEART: Rate and Rhythm are regular. ABDOMEN: Soft, nontender. Obese. EXTREMITITES: 2+ edema. Objective - Vital Signs Vital signs: Vital Signs Temp 96.1 F L 10/26/19 08:00 Pulse 67 10/26/19 16:00 Resp 16 10/26/19 16:00 BP 139/78 10/26/19 16:00 Pulse Ox 100 10/26/19 16:00 Intake & Output 10/25/19 10/26/19 10/26/19 18:59 06:59 18:59 Intake Total 1383.333 250 100 Output Total 320 210 200 Balance 1063.333 40 -100 Weight 116 kg 116.7 kg Intake: Intake, IV Titration 183.333 250 Amount Heparin Sod,Pork in 0.45% 183.333 250 NaCl 25,000 unit In 0.45 % NaCl 1 250ml.bag @ 8.68 UNITS/KG/HR 10 mls/hr IV .Q24H [facility] Rx#:[id number] Oral 1200 100 Output: Urine 320 210 200 Other: Voiding Method Urinal Urinal Urinal # Voids 1 2 1 # Bowel Movements 1 - Labs CBC & Chem 7: 10/26/19 05:39 10/26/19 05:39 Labs: Abnormal Lab Results - Last 24 Hours (Table) 10/25/19 10/25/19 10/26/19 Range/Units 17:30 20:10 00:48 WBC (3.8-10.6) k/uL RBC (4.30-5.90) m/uL Hgb (13.0-17.5) gm/dL Hct (39.0-53.0) % MCHC (31.0-37.0) g/dL RDW (11.5-15.5) % Neutrophils # (1.3-7.7) k/uL Lymphocytes # (1.0-4.8) k/uL APTT 38.5 H 43.7 H (22.0-30.0) sec Chloride (98-107) mmol/L BUN (9-20) mg/dL Creatinine (0.66-1.25) mg/dL POC Glucose (mg/dL) 108 H (75-99) mg/dL Calcium (8.4-10.2) mg/dL Magnesium (1.6-2.3) mg/dL 10/26/19 10/26/19 10/26/19 Range/Units 02:41 02:58 03:12 WBC (3.8-10.6) k/uL RBC (4.30-5.90) m/uL Hgb (13.0-17.5) gm/dL Hct (39.0-53.0) % MCHC (31.0-37.0) g/dL RDW (11.5-15.5) % Neutrophils # (1.3-7.7) k/uL Lymphocytes # (1.0-4.8) k/uL APTT (22.0-30.0) sec Chloride (98-107) mmol/L BUN (9-20) mg/dL Creatinine (0.66-1.25) mg/dL POC Glucose (mg/dL) 55 L 62 L 65 L (75-99) mg/dL Calcium (8.4-10.2) mg/dL Magnesium (1.6-2.3) mg/dL 10/26/19 10/26/19 10/26/19 Range/Units 05:39 05:39 12:04 WBC 11.6 H (3.8-10.6) k/uL RBC 3.36 L (4.30-5.90) m/uL Hgb 9.8 L (13.0-17.5) gm/dL Hct 32.8 L (39.0-53.0) % MCHC 29.8 L (31.0-37.0) g/dL RDW 18.9 H (11.5-15.5) % Neutrophils # 10.2 H (1.3-7.7) k/uL Lymphocytes # 0.7 L (1.0-4.8) k/uL APTT (22.0-30.0) sec Chloride 109 H (98-107) mmol/L BUN 53 H (9-20) mg/dL Creatinine 3.63 H (0.66-1.25) mg/dL POC Glucose (mg/dL) 141 H (75-99) mg/dL Calcium 8.2 L (8.4-10.2) mg/dL Magnesium 2.4 H (1.6-2.3) mg/dL 10/26/19 Range/Units 17:06 WBC (3.8-10.6) k/uL RBC (4.30-5.90) m/uL Hgb (13.0-17.5) gm/dL Hct (39.0-53.0) % MCHC (31.0-37.0) g/dL RDW (11.5-15.5) % Neutrophils # (1.3-7.7) k/uL Lymphocytes # (1.0-4.8) k/uL APTT (22.0-30.0) sec Chloride (98-107) mmol/L BUN (9-20) mg/dL Creatinine (0.66-1.25) mg/dL POC Glucose (mg/dL) 100 H (75-99) mg/dL Calcium (8.4-10.2) mg/dL Magnesium (1.6-2.3) mg/dL Microbiology - Last 24 Hours (Table) 10/24/19 12:10 Blood Culture - Preliminary Blood No Growth after 48 hours Assessment and Plan Plan: Assessment: 1. Acute kidney injury mostly prerenal secondary to cardiorenal syndrome. Renal function worse due to diuresis. Creatinine 3.13 on admission and is 3.63 today. 2. Chronic kidney disease stage IV baseline creatinine 2.5-3 secondary to diabetic kidney disease and cardiorenal syndrome. 3. Volume overload. 4. Acute on chronic systolic CHF with ejection fraction of 40-45%. 5. Insulin-dependent diabetes mellitus. 6. Hypertension with chronic kidney disease. Controlled. 7. Lower extremity cellulitis maintained on antibiotics. 8. Non-ST elevated myocardial infarction maintained on IV heparin. Cardiology following. Plan: Discontinue IV push Lasix. Start Lasix drip at 10 mL an hour. 1500 mL fluid restriction and low-salt diet. Daily weights. Strict I's and O's. Serial bladder scans to rule out urinary retention. Avoid nephrotoxins. Continue to monitor renal function and urine output. Follow-up echocardiogram. Check renal ultrasound.
[2019-10-26] MEDS: SILVER sulfADIAZINE Cream 400 GM 1 APPLIC APPLIC TOPICAL SCH (18:20)
[2019-10-26 20:17] LABS: Glucose,Whole Blood 95 mg/dL (75-99)
[2019-10-26] MEDS: ATORVASTATIN 20 MG TAB PO SCH (21:48)
--- NOTE | 2019-10-27 00:53 | US ---
EXAMINATION TYPE: US kidneys/renal and bladder DATE OF EXAM: 10/26/2019 COMPARISON: US 2018 CLINICAL HISTORY: carmen. CARMEN. Hx kidney stone. EXAM MEASUREMENTS: Right Kidney: 10.9 x 4.6 x 4.8 cm Left Kidney: 10.5 x 4.2 x 5.8 cm Right Kidney: Hyperechoic focus with posterior shadowing seen: 1.1 x 1.1 x 0.7 cm. Left Kidney: No hydronephrosis or masses seen Bladder: Appears anechoic. Not fully distended. Bilateral Jets seen: Yes IMPRESSION: There is nonobstructing 11 mm calculus interpolar right kidney. Bilateral ureteral jets a re seen and there is no sign of obstruction.
[2019-10-27 03:21] LABS: Glucose,Whole Blood 39 mg/dL (75-99)
[2019-10-27] MEDS: HEPARIN SOD,PORK IN 0.45% NACL 25,000 UNIT in 0.45% NACL 1 250ML.BAG IV SCH ×2 (03:27→17:18)
[2019-10-27 03:42] LABS: Glucose,Whole Blood 89 mg/dL (75-99)
[2019-10-27 06:16] LABS: Anisocytosis Slight; Basophils % (A) 0 %; Eosinophils # (A) 0.2 k/uL (0-0.7); Eosinophils % (A) 2 %; HCT 33.2 % (39.0-53.0); HGB 9.9 gm/dL (13.0-17.5); Hypochromasia Marked; Lymphocytes # (A) 0.6 k/uL (1.0-4.8); Lymphocytes % (A) 9 %; MCH 29.4 pg (25.0-35.0); MCHC 29.9 g/dL (31.0-37.0); MCV 98.4 fL (80.0-100.0); Macrocytosis Slight; Mean Platelet Volume 9.3; Monocytes # (A) 0.4 k/uL (0-1.0); Monocytes % (A) 5 %; Neutrophils # (A) 5.7 k/uL (1.3-7.7); Neutrophils % (A) 82 %; Platelet Count 156 k/uL (150-450); RBC 3.37 m/uL (4.30-5.90); RDW 18.3 % (11.5-15.5); WBC 6.9 k/uL (3.8-10.6)
[2019-10-27 06:28] LABS: Calcium 8.2 mg/dL (8.4-10.2); Potassium 4.3 mmol/L (3.5-5.1)
[2019-10-27] MEDS: HEPARIN SODIUM,PORCINE 5,000 UNIT/ML 1 ML VIAL IV PRN (06:48)
[2019-10-27] MEDS: carvediloL 12.5 MG TAB PO SCH ×2 (06:59→17:17)
[2019-10-27] MEDS: INSULIN ASPART (NovoLOG) 100 UNIT/ML VIAL SQ SCH ×4 (09:21→20:37)
[2019-10-27] MEDS: FUROSEMIDE 100 MG in SODIUM CHLORIDE 0.9% 90 ML IV SCH ×3 (09:27→21:50)
[2019-10-27] MEDS: POTASSIUM CHLORIDE ER 10 MEQ TAB.ER.PRT PO SCH ×2 (09:28→20:37)
[2019-10-27] MEDS: FAMOTIDINE 20 MG TAB PO SCH (09:28)
[2019-10-27] MEDS: hydrALAZINE HCL 25 MG TAB PO SCH ×2 (09:28→20:37)
[2019-10-27] MEDS: CLOPIDOGREL 75 MG TAB PO SCH (09:28)
[2019-10-27] MEDS: NITROGLYCERIN OINT 1 INCH/GM PACKET TOPICAL SCH ×4 (09:28→21:06)
[2019-10-27] MEDS: allopurinoL 100 MG TAB PO SCH ×2 (09:28→20:37)
[2019-10-27] MEDS: ASPIRIN 81 MG PO SCH (09:28)
[2019-10-27] MEDS: AZITHROMYCIN 500 MG TAB PO SCH (09:29)
--- NOTE | 2019-10-27 10:42 | P.PN ---
Subjective Patient is seen in follow-up for acute kidney injury on chronic kidney disease. Patient has chronic kidney disease stage IV with baseline creatinine the range of 2.5-3. Remains edematous. Renal function stable. Denies chest pain or shortness of breath. Hemodynamically stable. UO not accurately documented. Vital signs are stable. General: The patient appeared well nourished and normally developed. HEENT: Head exam is unremarkable. Neck is without jugular venous distension. LUNGS: Breath sounds decreased. HEART: Rate and Rhythm are regular. ABDOMEN: Soft, nontender. Obese. EXTREMITITES: 2+ edema. Objective - Vital Signs Vital signs: Vital Signs Temp 96 F L 10/27/19 08:00 Pulse 68 10/27/19 08:00 Resp 16 10/27/19 08:00 BP 144/83 10/27/19 08:00 Pulse Ox 99 10/27/19 08:00 Intake & Output 10/26/19 10/27/19 10/27/19 18:59 06:59 18:59 Intake Total 550 402.372 280 Output Total 800 300 100 Balance -250 102.372 180 Weight 115.5 kg Intake: Intake, IV Titration 150 402.372 100 Amount Furosemide 100 mg In 50 93.333 100 Sodium Chloride 0.9% 90 ml @ 10 MG/HR 10 mls/hr IV .Q10H [facility] Rx#: [id number] Heparin Sod,Pork in 0.45% 309.039 NaCl 25,000 unit In 0.45 % NaCl 1 250ml.bag @ 8.68 UNITS/KG/HR 10 mls/hr IV .Q24H [facility] Rx#:[id number] cefTRIAXone 1 gm In 100 Sodium Chloride 0.9% 50 ml @ 100 mls/hr IVPB Q24HR [facility] Rx#:[id number] Oral 400 180 Output: Urine 800 300 100 Other: Voiding Method Urinal Urinal # Voids 1 - Labs CBC & Chem 7: 10/27/19 05:55 10/27/19 05:55 Labs: Abnormal Lab Results - Last 24 Hours (Table) 10/26/19 10/26/19 10/27/19 Range/Units 12:04 17:06 03:15 RBC (4.30-5.90) m/uL Hgb (13.0-17.5) gm/dL Hct (39.0-53.0) % MCHC (31.0-37.0) g/dL RDW (11.5-15.5) % Lymphocytes # (1.0-4.8) k/uL APTT (22.0-30.0) sec BUN (9-20) mg/dL Creatinine (0.66-1.25) mg/dL Glucose (74-99) mg/dL POC Glucose (mg/dL) 141 H 100 H 39 L (75-99) mg/dL Calcium (8.4-10.2) mg/dL 10/27/19 10/27/19 10/27/19 Range/Units 05:55 05:55 05:55 RBC 3.37 L (4.30-5.90) m/uL Hgb 9.9 L (13.0-17.5) gm/dL Hct 33.2 L (39.0-53.0) % MCHC 29.9 L (31.0-37.0) g/dL RDW 18.3 H (11.5-15.5) % Lymphocytes # 0.6 L (1.0-4.8) k/uL APTT 32.6 H (22.0-30.0) sec BUN 61 H (9-20) mg/dL Creatinine 3.64 H (0.66-1.25) mg/dL Glucose 69 L (74-99) mg/dL POC Glucose (mg/dL) (75-99) mg/dL Calcium 8.2 L (8.4-10.2) mg/dL Microbiology - Last 24 Hours (Table) 10/24/19 12:10 Blood Culture - Preliminary Blood No Growth after 48 hours Assessment and Plan Plan: Assessment: 1. Acute kidney injury mostly prerenal secondary to cardiorenal syndrome. Renal function worse due to diuresis. Creatinine 3.13 on admission and is stable at 3.64 today. No hydronephrosis noted on kidney ultrasound. 2. Chronic kidney disease stage IV baseline creatinine 2.5-3 secondary to diabetic kidney disease and cardiorenal syndrome. 3. Volume overload. 4. Acute on chronic systolic CHF with ejection fraction of 40-45%. 5. Insulin-dependent diabetes mellitus. 6. Hypertension with chronic kidney disease. Controlled. 7. Lower extremity cellulitis maintained on antibiotics. 8. Non-ST elevated myocardial infarction maintained on IV heparin. Cardiology following. Plan: Increase Lasix drip to 15 mL an hour. Add metolazone 5 mg once daily. 1500 mL fluid restriction and low-salt diet. Daily weights. Strict I's and O's. Avoid nephrotoxins. Continue to monitor renal function and urine output. Follow-up echocardiogram. Check phosphorus level. I discussed with the patient the potential need to start renal replacement therapy if no improvement in his renal function and volume status. States he will think about it. Continue to assess on daily basis.
[2019-10-27 11:54] LABS: Glucose,Whole Blood 118 mg/dL (75-99)
--- NOTE | 2019-10-27 12:26 | P.PN ---
Subjective Progress Note Date: 10/27/19 This is 69-year-old gentleman with history of CAD, [place], CABG, cardiac catheterization with stents, diabetes mellitus, gastroesophageal reflux disease, hyperlipidemia, hypertension, renal failure and multiple other medical issues, presented to the ER with complaints of sustained a scratch to the right lower extremity 2 weeks ago, worsening redness, blistering with drainage and edema, accompanied by shortness of breath, occasional productive cough with white sputum. Per ER note, patient's family also disclosed patient had been exhibiting mild confusion. Denies nausea vomiting or diarrhea. Denies chest pain, palpitations. EKG reported sinus rhythm, sinus arrhythmia, inferior infarct, age undetermined, troponins 6.13, 6.100 .Denies lightheadedness, dizziness or focal deficits. Afebrile, T-max 99.1 , WBC 22.6, trending down to 16.6, maintaining O2 sats in the 90s on 2 L nasal cannula, creatinine 3.13, blood sugars fairly controlled, 140s to 170s with hemaglobin A1c of 5.7. Lactic acid 1.8. Hemoglobin 10.5. Brain CT reporting no acute infarcts or mass lesions evident, atrophy with paraventricular white matter ischemic changes. Initial Chest x-ray reporting left lower lobe infiltrate and pleural effusion, correlate for CHF or pneumonia. Follow-up chest x-ray reported increasing consolidation of the left representing combination of infiltrate and pleural effusion, right lung demonstrated bibasilar subsegmental consolidation. X-ray of right tibia/fibula reported no acute fracture or dislocation, fairly moderate tricompartment joint space loss in the right knee, moderate to severe diffuse subcutaneous edema and soft tissue swelling. [id number] maintained on Lasix IV push with minimal urine output, minimal improvement in bilateral lower extremity edema. Converted to Lasix drip as per nephrology. Creatinine mildly worsened, up to 3.63 Vital signs stable, maintaining O2 sats in the 90s on 2 L nasal cannula. Afebrile, WBC trending down, 11.6. Denies chest pain, palpitations. 10/27/2019 maintained on both heparin and Lasix drips. Continues to have significant edema. Creatinine remains at 3.6. Maintaining O2 sats in the 90s on 2 L nasal cannula. Hemoglobin 9.9. Hypoglycemic this morning, reports he did not eat his hs snack. Current blood sugar 118. Denies nausea vomiting or diarrhea. Denies abdominal pain. Denies chest pain, palpitations or increased shortness of breath. Objective - Vital Signs Vital signs: Vital Signs Temp 97.6 F 10/27/19 03:32 Pulse 66 10/27/19 04:00 Resp 20 10/27/19 04:00 BP 128/59 10/27/19 03:32 Pulse Ox 98 10/27/19 03:32 Intake & Output 10/26/19 10/27/19 10/27/19 18:59 06:59 18:59 Intake Total 550 402.372 180 Output Total 800 300 Balance -250 102.372 180 Weight 115.5 kg Intake: Intake, IV Titration 150 402.372 Amount Furosemide 100 mg In 50 93.333 Sodium Chloride 0.9% 90 ml @ 10 MG/HR 10 mls/hr IV .Q10H [facility] Rx#: [id number] Heparin Sod,Pork in 0.45% 309.039 NaCl 25,000 unit In 0.45 % NaCl 1 250ml.bag @ 8.68 UNITS/KG/HR 10 mls/hr IV .Q24H [facility] Rx#:[id number] cefTRIAXone 1 gm In 100 Sodium Chloride 0.9% 50 ml @ 100 mls/hr IVPB Q24HR [facility] Rx#:[id number] Oral 400 180 Output: Urine 800 300 Other: Voiding Method Urinal Urinal # Voids 1 - Exam PHYSICAL EXAM: VITAL SIGNS: As above GENERAL: Sitting up at in bed, no acute distress HEENT: Conjunctivae normal. eyes normal. Oral mucosa moist. NECK: No JVD. No thyroid enlargement. No LNs CARDIOVASCULAR: S1, S2 regular. Systolic murmur RESPIRATION: Breath sounds diminished in the bases. ABDOMEN: Soft, nontender . No guarding. no masses palpable. Bowel sounds heard. LEGS: Bilateral lower extremities, positive edema, chronic venous stasis, Rd wrapped, no calf tenderness PSYCHIATRY: Alert and oriented X3, mood and affect normal. NERVOUS SYSTEM: Cranial N 2-12 grossly normal. Moves all 4 limbs. Diffuse weakness No focal deficits. Strength and sensation grossly intact. Skin: no rash, warm and dry - Labs CBC & Chem 7: 10/27/19 05:55 10/27/19 05:55 Labs: Abnormal Lab Results - Last 24 Hours (Table) 10/26/19 10/26/19 10/26/19 Range/Units 05:39 12:04 17:06 WBC 11.6 H (3.8-10.6) k/uL RBC 3.36 L (4.30-5.90) m/uL Hgb 9.8 L (13.0-17.5) gm/dL Hct 32.8 L (39.0-53.0) % MCHC 29.8 L (31.0-37.0) g/dL RDW 18.9 H (11.5-15.5) % Neutrophils # 10.2 H (1.3-7.7) k/uL Lymphocytes # 0.7 L (1.0-4.8) k/uL APTT (22.0-30.0) sec BUN (9-20) mg/dL Creatinine (0.66-1.25) mg/dL Glucose (74-99) mg/dL POC Glucose (mg/dL) 141 H 100 H (75-99) mg/dL Calcium (8.4-10.2) mg/dL 10/27/19 10/27/19 10/27/19 Range/Units 03:15 05:55 05:55 WBC (3.8-10.6) k/uL RBC 3.37 L (4.30-5.90) m/uL Hgb 9.9 L (13.0-17.5) gm/dL Hct 33.2 L (39.0-53.0) % MCHC 29.9 L (31.0-37.0) g/dL RDW 18.3 H (11.5-15.5) % Neutrophils # (1.3-7.7) k/uL Lymphocytes # 0.6 L (1.0-4.8) k/uL APTT (22.0-30.0) sec BUN 61 H (9-20) mg/dL Creatinine 3.64 H (0.66-1.25) mg/dL Glucose 69 L (74-99) mg/dL POC Glucose (mg/dL) 39 L (75-99) mg/dL Calcium 8.2 L (8.4-10.2) mg/dL 10/27/19 Range/Units 05:55 WBC (3.8-10.6) k/uL RBC (4.30-5.90) m/uL Hgb (13.0-17.5) gm/dL Hct (39.0-53.0) % MCHC (31.0-37.0) g/dL RDW (11.5-15.5) % Neutrophils # (1.3-7.7) k/uL Lymphocytes # (1.0-4.8) k/uL APTT 32.6 H (22.0-30.0) sec BUN (9-20) mg/dL Creatinine (0.66-1.25) mg/dL Glucose (74-99) mg/dL POC Glucose (mg/dL) (75-99) mg/dL Calcium (8.4-10.2) mg/dL Microbiology - Last 24 Hours (Table) 10/24/19 12:10 Blood Culture - Preliminary Blood No Growth after 48 hours Assessment and Plan Assessment: Dyspnea,secondary to acute on chronic diastolic CHF, left lower lobe pneumonia, coronavirus not detected. Left lower lobe infiltrate with small bilateral pleural effusions Acute hypoxic respiratory failure secondary to the above Acute NSTEMI, on heparin drip Acute metabolic encephalopathy, multifactorial, secondary to all the above Acute renal failure, prerenal secondary to cardiorenal syndrome Chronic kidney disease, stage IV, baseline 2.5-3 Cellulitis of bilateral lower extremities, right greater than left Leukocytosis CAD, history of [place], CABG, cardiac catheterization with stent Diabetes mellitus, hemoglobin A1c 5.7 Gastroesophageal reflux disease Hypertension Hyperlipidemia Hypokalemia secondary to diuresing Urinary retention being ruled out Morbid obesity, BMI 34.7 Plan: Continue current medication regime , beta blockers, statin, aspirin, nitrates,monitoring and symptomatic treatment. Maintain fluid restrictions, Lasix drip increased as per nephrology. Renal replacement discussed pending no improvement. Continue with aggressive pulmonary toileting with nebulized bronchodilators, antibiotics. Close monitoring of renal function, electrolytes with repeat labs ordered for a.m. Anticoagulated on heparin drip, eventually cardiac catheterization, pending clinical improvement. Prognosis guarded given multiple complex medical issues. The impression and plan of care has been dictated as directed. : I performed a history and examination of this patient, discussed the same with the dictator. I agree with the dictator's note ,documented as a scribe. Any additional findings or plans will be noted.
[2019-10-27] MEDS: metOLazone 5 MG TAB PO SCH (12:47)
--- NOTE | 2019-10-27 14:15 | P.PN ---
Subjective Progress Note Date: 10/27/19 This is a 69-year-old gentleman with history of diabetes, hypertension, hyperlipidemia, coronary artery disease with prior UT and PCI who presented to the hospital with symptoms of bilateral lower extremity edema and symptoms of shortness of breath which had been going on for several days. He is currently receiving treatment for congestive heart failure, was on IV Lasix and had a very decreased urine output through the night last night. Therefore patient was initiated on IV Lasix drip by nephrology today. Repeat chest x-ray showed increasing consolidation of the left likely representing a combination of infiltrate and pleural effusion. Blood pressure 137/70 with a heart rate in the 60s, 99% on 2 L of oxygen. White blood cell count 11.6, hemoglobin 9.8, platelet count 166. Sodium 141, potassium 4.1, BUN 53, creatinine 3.6. 10/27/2019 Patient seen and examined this morning, still continues to feel quite short of breath, he did have more urine output through the night but still quite minimal. His Lasix drip was increased to 15 mg per hour and Zaroxolyn was added by nephrology. Dr. Orosco also had a lengthy discussion with the patient regarding initiating dialysis. The patient wishes to think about this. Blood pressure 140/80 with a heart rate in the 60s to 70s, 99% on 2 L. White blood cell count 6.9, hemoglobin 9.9, platelet count 156. Sodium 137, potassium 4.3, BUN 61, creatinine 3.6. Objective - Vital Signs Vital signs: Vital Signs Temp 96 F L 10/27/19 08:00 Pulse 70 10/27/19 12:00 Resp 16 10/27/19 12:00 BP 151/76 10/27/19 12:00 Pulse Ox 99 10/27/19 12:00 Intake & Output 10/26/19 10/27/19 10/27/19 18:59 06:59 18:59 Intake Total 550 402.372 380 Output Total 800 300 125 Balance -250 102.372 255 Weight 115.5 kg Intake: Intake, IV Titration 150 402.372 100 Amount Furosemide 100 mg In 50 93.333 100 Sodium Chloride 0.9% 90 ml @ 15 MG/HR 15 mls/hr IV .Q6H40M [facility] Rx#: [id number] Heparin Sod,Pork in 0.45% 309.039 NaCl 25,000 unit In 0.45 % NaCl 1 250ml.bag @ 8.68 UNITS/KG/HR 10 mls/hr IV .Q24H [facility] Rx#:[id number] cefTRIAXone 1 gm In 100 Sodium Chloride 0.9% 50 ml @ 100 mls/hr IVPB Q24HR [facility] Rx#:[id number] Oral 400 280 Output: Urine 800 300 125 Other: Voiding Method Urinal Urinal Urinal # Voids 1 - Exam PHYSICAL EXAMINATION: GENERAL: 69-year-old gentleman in no acute distress at the time of my examination HEENT: Head is atraumatic, normocephalic. Pupils equal, round. Sclera anicteric. Conjunctiva are clear. Mucous membranes of the mouth are moist. Neck is supple. There is elevated jugular venous pressure. No carotid bruit is heard. HEART EXAMINATION: Heart S1, S2 normal. No murmur or gallop heard. CHEST EXAMINATION: Lungs are diminished bilaterally ABDOMEN: Soft, nontender. Bowel sounds are heard. No organomegaly noted. EXTREMITIES: 2+ peripheral pulses with 2-3+ evidence of peripheral edema and no calf tenderness noted. NEUROLOGIC patient is awake, alert and oriented 3 . . - Labs CBC & Chem 7: 10/27/19 05:55 10/27/19 05:55 Labs: Abnormal Lab Results - Last 24 Hours (Table) 10/26/19 10/27/19 10/27/19 Range/Units 17:06 03:15 05:55 RBC 3.37 L (4.30-5.90) m/uL Hgb 9.9 L (13.0-17.5) gm/dL Hct 33.2 L (39.0-53.0) % MCHC 29.9 L (31.0-37.0) g/dL RDW 18.3 H (11.5-15.5) % Lymphocytes # 0.6 L (1.0-4.8) k/uL APTT (22.0-30.0) sec BUN (9-20) mg/dL Creatinine (0.66-1.25) mg/dL Glucose (74-99) mg/dL POC Glucose (mg/dL) 100 H 39 L (75-99) mg/dL Calcium (8.4-10.2) mg/dL 10/27/19 10/27/19 10/27/19 Range/Units 05:55 05:55 11:53 RBC (4.30-5.90) m/uL Hgb (13.0-17.5) gm/dL Hct (39.0-53.0) % MCHC (31.0-37.0) g/dL RDW (11.5-15.5) % Lymphocytes # (1.0-4.8) k/uL APTT 32.6 H (22.0-30.0) sec BUN 61 H (9-20) mg/dL Creatinine 3.64 H (0.66-1.25) mg/dL Glucose 69 L (74-99) mg/dL POC Glucose (mg/dL) 118 H (75-99) mg/dL Calcium 8.2 L (8.4-10.2) mg/dL Microbiology - Last 24 Hours (Table) 10/24/19 12:10 Blood Culture - Preliminary Blood No Growth after 48 hours Assessment and Plan Plan: Assessment and plan: 1. Acute on chronic systolic CHF with ejection fraction of 40-45%. 2. Chronic kidney disease stage IV baseline creatinine 2.5-3 secondary to diabetic kidney disease and cardiorenal syndrome. 3. Volume overload. 4. Acute kidney injury mostly prerenal secondary to cardiorenal syndrome. Creatinine 3.13 on admission. Rule out urinary retention. 5. Insulin-dependent diabetes mellitus. 6. Hypertension with chronic kidney disease. Controlled. 7. Lower extremity cellulitis maintained on antibiotics. 8. Possible non-Q-wave myocardial infarction 9. Coronary artery disease with prior PCI Plan Lasix drip has been increased to 15 mg per hour, Zaroxolyn has been added. Nephrology had a discussion with the patient today regarding initiating dialysis. We will continue to follow. DNP note has been reviewed, I agree with a documented findings and plan of care. Patient was seen and examined.
[2019-10-27 16:56] LABS: Glucose,Whole Blood 199 mg/dL (75-99)
[2019-10-27] MEDS: INSULIN DETEMIR (LEVEMIR) 100 UNIT/ML SYR SQ SCH (17:17)
[2019-10-27 20:24] LABS: Glucose,Whole Blood 200 mg/dL (75-99)
[2019-10-27] MEDS: ATORVASTATIN 20 MG TAB PO SCH (20:37)
[2019-10-27] MEDS: SILVER sulfADIAZINE Cream 400 GM 1 APPLIC APPLIC TOPICAL SCH (22:34)
[2019-10-28 02:09] LABS: Glucose,Whole Blood 45 mg/dL (75-99)
[2019-10-28 02:30] LABS: Glucose,Whole Blood 60 mg/dL (75-99)
[2019-10-28] MEDS ORDERED: DEXTROSE 50% SYRINGE 50 ML IVP ONE (02:31)
[2019-10-28 02:49] LABS: Glucose,Whole Blood 88 mg/dL (75-99)
[2019-10-28] MEDS: carvediloL 12.5 MG TAB PO SCH ×2 (06:28→17:39)
[2019-10-28] MEDS: HEPARIN SOD,PORK IN 0.45% NACL 25,000 UNIT in 0.45% NACL 1 250ML.BAG IV SCH (06:29)
[2019-10-28] MEDS: FUROSEMIDE 100 MG in SODIUM CHLORIDE 0.9% 90 ML IV SCH ×2 (06:31→12:44)
[2019-10-28 07:00] LABS: Glucose,Whole Blood 81 mg/dL (75-99)
[2019-10-28] MEDS: INSULIN ASPART (NovoLOG) 100 UNIT/ML VIAL SQ SCH ×4 (07:00→20:34)
[2019-10-28] MEDS: INSULIN DETEMIR (LEVEMIR) 100 UNIT/ML SYR SQ SCH (07:00)
[2019-10-28 07:11] LABS: Calcium 8.1 mg/dL (8.4-10.2); Magnesium 2.4 mg/dL (1.6-2.3); Phosphorus 5.7 mg/dL (2.5-4.5); Potassium 4.1 mmol/L (3.5-5.1)
[2019-10-28] MEDS: CLOPIDOGREL 75 MG TAB PO SCH (08:45)
[2019-10-28] MEDS: FAMOTIDINE 20 MG TAB PO SCH (08:45)
[2019-10-28] MEDS: hydrALAZINE HCL 25 MG TAB PO SCH ×2 (08:46→20:33)
[2019-10-28] MEDS: AZITHROMYCIN 500 MG TAB PO SCH (08:46)
[2019-10-28] MEDS: ASPIRIN 81 MG PO SCH (08:46)
[2019-10-28] MEDS: allopurinoL 100 MG TAB PO SCH ×2 (08:46→20:34)
[2019-10-28] MEDS: POTASSIUM CHLORIDE ER 10 MEQ TAB.ER.PRT PO SCH ×2 (08:46→20:33)
[2019-10-28] MEDS: NITROGLYCERIN OINT 1 INCH/GM PACKET TOPICAL SCH ×5 (08:47→21:31)
[2019-10-28] MEDS: metOLazone 5 MG TAB PO SCH (08:47)
--- NOTE | 2019-10-28 10:13 | P.PN ---
Subjective Patient is seen in follow-up for acute kidney injury on chronic kidney disease. Patient has chronic kidney disease stage IV with baseline creatinine the range of 2.5-3. Remains edematous. Renal function stable. Denies chest pain or shortness of breath. Hemodynamically stable. UO a little over 2 L in the last 24 hours. Vital signs are stable. General: The patient appeared well nourished and normally developed. HEENT: Head exam is unremarkable. Neck is without jugular venous distension. LUNGS: Breath sounds decreased. HEART: Rate and Rhythm are regular. ABDOMEN: Soft, nontender. Obese. EXTREMITITES: 2+ edema. Objective - Vital Signs Vital signs: Vital Signs Temp 98.1 F 10/28/19 08:00 Pulse 71 10/28/19 08:00 Resp 18 10/28/19 08:00 BP 155/72 10/28/19 08:00 Pulse Ox 98 10/28/19 08:00 Intake & Output 10/27/19 10/28/19 10/28/19 18:59 06:59 18:59 Intake Total 987.751 0292.166 236 Output Total 125 1475 750 Balance 524.461 -462.834 -514 Weight 119.2 kg Intake: IV 90 Furosemide 100 mg In 90 Sodium Chloride 0.9% 90 ml @ 15 MG/HR 15 mls/hr IV .Q6H40M [facility] Rx#: [id number] Intake, IV Titration 369.461 382.166 Amount Furosemide 100 mg In 178.5 132.166 Sodium Chloride 0.9% 90 ml @ 15 MG/HR 15 mls/hr IV .Q6H40M [facility] Rx#: [id number] Heparin Sod,Pork in 0.45% 190.961 250 NaCl 25,000 unit In 0.45 % NaCl 1 250ml.bag @ 8.68 UNITS/KG/HR 10 mls/hr IV .Q24H [facility] Rx#:[id number] Oral 280 540 236 Output: Urine 125 1475 750 Other: Voiding Method Urinal Urinal Urinal - Labs CBC & Chem 7: 10/27/19 05:55 10/28/19 06:15 Labs: Abnormal Lab Results - Last 24 Hours (Table) 10/27/19 10/27/19 10/27/19 Range/Units 11:53 16:27 16:49 APTT 49.8 H (22.0-30.0) sec BUN (9-20) mg/dL Creatinine (0.66-1.25) mg/dL Glucose (74-99) mg/dL POC Glucose (mg/dL) 118 H 199 H (75-99) mg/dL Calcium (8.4-10.2) mg/dL Phosphorus (2.5-4.5) mg/dL Magnesium (1.6-2.3) mg/dL 10/27/19 10/28/19 10/28/19 Range/Units 20:22 02:05 02:28 APTT (22.0-30.0) sec BUN (9-20) mg/dL Creatinine (0.66-1.25) mg/dL Glucose (74-99) mg/dL POC Glucose (mg/dL) 200 H 45 L 60 L (75-99) mg/dL Calcium (8.4-10.2) mg/dL Phosphorus (2.5-4.5) mg/dL Magnesium (1.6-2.3) mg/dL 10/28/19 10/28/19 Range/Units 06:15 06:15 APTT 40.3 H (22.0-30.0) sec BUN 68 H (9-20) mg/dL Creatinine 3.52 H (0.66-1.25) mg/dL Glucose 65 L (74-99) mg/dL POC Glucose (mg/dL) (75-99) mg/dL Calcium 8.1 L (8.4-10.2) mg/dL Phosphorus 5.7 H (2.5-4.5) mg/dL Magnesium 2.4 H (1.6-2.3) mg/dL Microbiology - Last 24 Hours (Table) 10/24/19 12:10 Blood Culture - Preliminary Blood No Growth after 72 hours Assessment and Plan Plan: Assessment: 1. Acute kidney injury mostly prerenal secondary to cardiorenal syndrome. Re nal function fairly stable. Creatinine 3.13 on admission and is stable at 3.52 today. No hydronephrosis noted on kidney ultrasound. 2. Chronic kidney disease stage IV baseline creatinine 2.5-3 secondary to diabetic kidney disease and cardiorenal syndrome. 3. Volume overload. 4. Acute on chronic systolic CHF with ejection fraction of 40-45%. 5. Insulin-dependent diabetes mellitus. 6. Hypertension with chronic kidney disease. Controlled. 7. Lower extremity cellulitis maintained on antibiotics. 8. Non-ST elevated myocardial infarction s/p IV heparin. Cardiology following. 9. Hyperphosphatemia secondary to acute kidney injury. Plan: Maintain Lasix drip at 15 mL an hour. Continue metolazone 5 mg once daily. 1500 mL fluid restriction and low-salt diet. Daily weights. Strict I's and O's. Avoid nephrotoxins. Continue to monitor renal function and urine output. Follow-up echocardiogram. Add PhosLo with meals. I discussed with the patient the need to start renal replacement therapy for improvement in his volume status. He's currently refusing and wants to continue with IV Lasix. Continue to assess on daily basis.
--- NOTE | 2019-10-28 10:23 | P.PN ---
Subjective Progress Note Date: 10/28/19 This is 69-year-old gentleman with history of CAD, [place], CABG, cardiac catheterization with stents, diabetes mellitus, gastroesophageal reflux disease, hyperlipidemia, hypertension, renal failure and multiple other medical issues, presented to the ER with complaints of sustained a scratch to the right lower extremity 2 weeks ago, worsening redness, blistering with drainage and edema, accompanied by shortness of breath, occasional productive cough with white sputum. Per ER note, patient's family also disclosed patient had been exhibiting mild confusion. Denies nausea vomiting or diarrhea. Denies chest pain, palpitations. EKG reported sinus rhythm, sinus arrhythmia, inferior infarct, age undetermined, troponins 6.13, 6.100 .Denies lightheadedness, dizziness or focal deficits. Afebrile, T-max 99.1 , WBC 22.6, trending down to 16.6, maintaining O2 sats in the 90s on 2 L nasal cannula, creatinine 3.13, blood sugars fairly controlled, 140s to 170s with hemaglobin A1c of 5.7. Lactic acid 1.8. Hemoglobin 10.5. Brain CT reporting no acute infarcts or mass lesions evident, atrophy with paraventricular white matter ischemic changes. Initial Chest x-ray reporting left lower lobe infiltrate and pleural effusion, correlate for CHF or pneumonia. Follow-up chest x-ray reported increasing consolidation of the left representing combination of infiltrate and pleural effusion, right lung demonstrated bibasilar subsegmental consolidation. X-ray of right tibia/fibula reported no acute fracture or dislocation, fairly moderate tricompartment joint space loss in the right knee, moderate to severe diffuse subcutaneous edema and soft tissue swelling. [id number] maintained on Lasix IV push with minimal urine output, minimal improvement in bilateral lower extremity edema. Converted to Lasix drip as per nephrology. Creatinine mildly worsened, up to 3.63 Vital signs stable, maintaining O2 sats in the 90s on 2 L nasal cannula. Afebrile, WBC trending down, 11.6. Denies chest pain, palpitations. 10/27/2019 maintained on both heparin and Lasix drips. Continues to have significant edema. Creatinine remains at 3.6. Maintaining O2 sats in the 90s on 2 L nasal cannula. Hemoglobin 9.9. Hypoglycemic this morning, reports he did not eat his hs snack. Current blood sugar 118. Denies nausea vomiting or diarrhea. Denies abdominal pain. Denies chest pain, palpitations or increased shortness of breath. 10/28/2019 continues on heparin and Lasix drip. Lasix drip increased yesterday. 24-hour I&O reflecting a negative fluid balance, but continues to have significant edema with increased oxygen requirements today . Requiring 3 L nasal cannula to maintain O2 sats in the 90s. Creatinine 3.52. Hypoglycemic this morning. Denies chest pain, palpitations. Ambulating, reports exertional shor tness of breath. Objective - Vital Signs Vital signs: Vital Signs Temp 98.1 F 10/28/19 08:00 Pulse 71 10/28/19 08:00 Resp 18 10/28/19 08:00 BP 155/72 10/28/19 08:00 Pulse Ox 98 10/28/19 08:00 Intake & Output 10/27/19 10/28/19 10/28/19 18:59 06:59 18:59 Intake Total 494.632 6638.166 236 Output Total 125 1475 750 Balance 524.461 -462.834 -514 Weight 119.2 kg Intake: IV 90 Furosemide 100 mg In 90 Sodium Chloride 0.9% 90 ml @ 15 MG/HR 15 mls/hr IV .Q6H40M [facility] Rx#: [id number] Intake, IV Titration 369.461 382.166 Amount Furosemide 100 mg In 178.5 132.166 Sodium Chloride 0.9% 90 ml @ 15 MG/HR 15 mls/hr IV .Q6H40M [facility] Rx#: [id number] Heparin Sod,Pork in 0.45% 190.961 250 NaCl 25,000 unit In 0.45 % NaCl 1 250ml.bag @ 8.68 UNITS/KG/HR 10 mls/hr IV .Q24H [facility] Rx#:[id number] Oral 280 540 236 Output: Urine 125 1475 750 Other: Voiding Method Urinal Urinal Urinal - Exam PHYSICAL EXAM: VITAL SIGNS: As above GENERAL: Sitting up at in bed, no acute distress HEENT: Conjunctivae normal. eyes normal. Oral mucosa moist. NECK: No JVD. No thyroid enlargement. No LNs CARDIOVASCULAR: S1, S2 regular. Systolic murmur, no rubs or gallops RESPIRATION: Breath sounds diminished in the bases. Fine bibasilar crackles. ABDOMEN: Soft, nontender . No guarding. no masses palpable. Bowel sounds heard. LEGS: Bilateral lower extremity edema, chronic venous stasis, Rd wrapped, no calf tenderness PSYCHIATRY: Alert and oriented X3, mood and affect normal. NERVOUS SYSTEM: Cranial N 2-12 grossly normal. Moves all 4 limbs. Diffuse weakness, No focal deficits. Strength and sensation grossly intact. Skin: no rash, warm and dry - Labs CBC & Chem 7: 10/27/19 05:55 10/28/19 06:15 Labs: Abnormal Lab Results - Last 24 Hours (Table) 10/27/19 10/27/19 10/27/19 Range/Units 11:53 16:27 16:49 APTT 49.8 H (22.0-30.0) sec BUN (9-20) mg/dL Creatinine (0.66-1.25) mg/dL Glucose (74-99) mg/dL POC Glucose (mg/dL) 118 H 199 H (75-99) mg/dL Calcium (8.4-10.2) mg/dL Phosphorus (2.5-4.5) mg/dL Magnesium (1.6-2.3) mg/dL 10/27/19 10/28/19 10/28/19 Range/Units 20:22 02:05 02:28 APTT (22.0-30.0) sec BUN (9-20) mg/dL Creatinine (0.66-1.25) mg/dL Glucose (74-99) mg/dL POC Glucose (mg/dL) 200 H 45 L 60 L (75-99) mg/dL Calcium (8.4-10.2) mg/dL Phosphorus (2.5-4.5) mg/dL Magnesium (1.6-2.3) mg/dL 10/28/19 10/28/19 Range/Units 06:15 06:15 APTT 40.3 H (22.0-30.0) sec BUN 68 H (9-20) mg/dL Creatinine 3.52 H (0.66-1.25) mg/dL Glucose 65 L (74-99) mg/dL POC Glucose (mg/dL) (75-99) mg/dL Calcium 8.1 L (8.4-10.2) mg/dL Phosphorus 5.7 H (2.5-4.5) mg/dL Magnesium 2.4 H (1.6-2.3) mg/dL Microbiology - Last 24 Hours (Table) 10/24/19 12:10 Blood Culture - Preliminary Blood No Growth after 72 hours Assessment and Plan Assessment: Dyspnea,secondary to acute on chronic diastolic CHF, left lower lobe pneumonia, coronavirus not detected. Left lower lobe infiltrate with small bilateral pleural effusions Acute hypoxic respiratory failure secondary to the above Acute NSTEMI, on heparin drip Acute metabolic encephalopathy, multifactorial, secondary to all the above Acute renal failure, prerenal secondary to cardiorenal syndrome Chronic kidney disease, stage IV, baseline 2.5-3 Cellulitis of bilateral lower extremities, right greater than left Leukocytosis CAD, history of [place], CABG, cardiac catheterization with stent Diabetes mellitus, hemoglobin A1c 5.7 Gastroesophageal reflux disease Hypertension Hyperlipidemia Hypokalemia secondary to diuresing Urinary retention being ruled out Morbid obesity, BMI 34.7 Plan: Continue current medication regime , beta blockers, statin, aspirin, nitrates,monitoring and symptomatic treatment. Diuresing as per nephrology. Continue on fluid restrictions. Renal replacement discussed, patient currently declining. Continue with aggressive pulmonary toileting with nebulized bronchodilators, antibiotics. Close monitoring of renal function, electrolytes with repeat labs ordered for a.m. Anticoagulation as per cardiology. Prognosis guarded given multiple complex medical issues. The impression and plan of care has been dictated as directed. : I performed a history and examination of this patient, discussed the same with the dictator. I agree with the dictator's note ,documented as a scribe. Any additional findings or plans will be noted.
[2019-10-28 11:56] LABS: Glucose,Whole Blood 90 mg/dL (75-99)
[2019-10-28] MEDS: CALCIUM ACETATE 667 MG TAB PO SCH ×2 (12:35→20:25)
--- NOTE | 2019-10-28 14:04 | P.PN ---
Subjective Progress Note Date: 10/28/19 This is a 69-year-old gentleman with history of diabetes, hypertension, hyperlipidemia, coronary artery disease with prior AR and PCI who presented to the hospital with symptoms of bilateral lower extremity edema and symptoms of shortness of breath which had been going on for several days. He is currently receiving treatment for congestive heart failure, was on IV Lasix and had a very decreased urine output through the night last night. Therefore patient was initiated on IV Lasix drip by nephrology today. Repeat chest x-ray showed increasing consolidation of the left likely representing a combination of infiltrate and pleural effusion. Blood pressure 137/70 with a heart rate in the 60s, 99% on 2 L of oxygen. White blood cell count 11.6, hemoglobin 9.8, platelet count 166. Sodium 141, potassium 4.1, BUN 53, creatinine 3.6. 10/27/2019 Patient seen and examined this morning, still continues to feel quite short of breath, he did have more urine output through the night but still quite minimal. His Lasix drip was increased to 15 mg per hour and Zaroxolyn was added by nephrology. Dr. Orosco also had a lengthy discussion with the patient regarding initiating dialysis. The patient wishes to think about this. Blood pressure 140/80 with a heart rate in the 60s to 70s, 99% on 2 L. White blood cell count 6.9, hemoglobin 9.9, platelet count 156. Sodium 137, potassium 4.3, BUN 61, creatinine 3.6. 10/28/2019 Patient was seen and examined this morning, sitting up at the chair at bedside. Overall he states he is feeling significantly better. He diuresed much more through the night last night as compared with the night prior. His weight is not reflective of this. He put out a little over 2 L and 24 hours. We will maintain a Lasix drip at 15 mg an hour and continue current dose of metolazone. Objective - Vital Signs Vital signs: Vital Signs Temp 98.6 F 10/28/19 12:00 Pulse 52 L 10/28/19 12:00 Resp 16 10/28/19 12:00 BP 165/83 10/28/19 12:00 Pulse Ox 99 10/28/19 12:00 Intake & Output 06/25/20 06/26/20 06/26/20 18:59 06:59 18:59 Intake Total 054.930 6088.166 329.25 Output Total 125 1475 750 Balance 524.461 -462.834 -420.75 Weight 119.2 kg Intake: IV 90 Furosemide 100 mg In 90 Sodium Chloride 0.9% 90 ml @ 15 MG/HR 15 mls/hr IV .Q6H40M [facility] Rx#: [id number] Intake, IV Titration 369.461 382.166 93.25 Amount Furosemide 100 mg In 178.5 132.166 93.25 Sodium Chloride 0.9% 90 ml @ 15 MG/HR 15 mls/hr IV .Q6H40M [facility] Rx#: [id number] Heparin Sod,Pork in 0.45% 190.961 250 NaCl 25,000 unit In 0.45 % NaCl 1 250ml.bag @ 8.68 UNITS/KG/HR 10 mls/hr IV .Q24H [facility] Rx#:[id number] Oral 280 540 236 Output: Urine 125 1475 750 Other: Voiding Method Urinal Urinal Urinal - Exam PHYSICAL EXAMINATION: GENERAL: 69-year-old gentleman in no acute distress at the time of my examination HEENT: Head is atraumatic, normocephalic. Pupils equal, round. Sclera anicteric. Conjunctiva are clear. Mucous membranes of the mouth are moist. Neck is supple. There is elevated jugular venous pressure. No carotid bruit is heard. HEART EXAMINATION: Heart S1, S2 normal. No murmur or gallop heard. CHEST EXAMINATION: Lungs are diminished bilaterally ABDOMEN: Soft, nontender. Bowel sounds are heard. No organomegaly noted. EXTREMITIES: 2+ peripheral pulses with 2-3+ evidence of peripheral edema and no calf tenderness noted. NEUROLOGIC patient is awake, alert and oriented 3 . . - Labs CBC & Chem 7: 10/27/19 05:55 10/28/19 06:15 Labs: Abnormal Lab Results - Last 24 Hours (Table) 10/27/19 10/27/19 10/27/19 Range/Units 16:27 16:49 20:22 APTT 49.8 H (22.0-30.0) sec BUN (9-20) mg/dL Creatinine (0.66-1.25) mg/dL Glucose (74-99) mg/dL POC Glucose (mg/dL) 199 H 200 H (75-99) mg/dL Calcium (8.4-10.2) mg/dL Phosphorus (2.5-4.5) mg/dL Magnesium (1.6-2.3) mg/dL 10/28/19 10/28/19 10/28/19 Range/Units 02:05 02:28 06:15 APTT (22.0-30.0) sec BUN 68 H (9-20) mg/dL Creatinine 3.52 H (0.66-1.25) mg/dL Glucose 65 L (74-99) mg/dL POC Glucose (mg/dL) 45 L 60 L (75-99) mg/dL Calcium 8.1 L (8.4-10.2) mg/dL Phosphorus 5.7 H (2.5-4.5) mg/dL Magnesium 2.4 H (1.6-2.3) mg/dL 10/28/19 Range/Units 06:15 APTT 40.3 H (22.0-30.0) sec BUN (9-20) mg/dL Creatinine (0.66-1.25) mg/dL Glucose (74-99) mg/dL POC Glucose (mg/dL) (75-99) mg/dL Calcium (8.4-10.2) mg/dL Phosphorus (2.5-4.5) mg/dL Magnesium (1.6-2.3) mg/dL Microbiology - Last 24 Hours (Table) 10/24/19 12:10 Blood Culture - Preliminary Blood No Growth after 72 hours Assessment and Plan Plan: Assessment and plan: 1. Acute on chronic systolic CHF with ejection fraction of 40-45%. 2. Chronic kidney disease stage IV baseline creatinine 2.5-3 secondary to diabetic kidney disease and cardiorenal syndrome. 3. Volume overload. 4. Acute kidney injury mostly prerenal secondary to cardiorenal syndrome. Creatinine 3.13 on admission. Rule out urinary retention. 5. Insulin-dependent diabetes mellitus. 6. Hypertension with chronic kidney disease. Controlled. 7. Lower extremity cellulitis maintained on antibiotics. 8. Possible non-Q-wave myocardial infarction 9. Coronary artery disease with prior PCI Plan From cardiology's perspective, we concur with nephrology on continuing the Lasix drip at 15 mg per hour as well as continuing the metolazone. Patient has been advised by nephrology regarding renal replacement therapy for improvement in his volume status, he's currently refusing at this time. DNP note has been reviewed, I agree with a documented findings and plan of care. Patient was seen and examined.
[2019-10-28 16:58] LABS: Glucose,Whole Blood 145 mg/dL (75-99)
[2019-10-28 20:21] LABS: Glucose,Whole Blood 203 mg/dL (75-99)
[2019-10-28] MEDS: ATORVASTATIN 20 MG TAB PO SCH (20:34)
[2019-10-28] MEDS: SILVER sulfADIAZINE Cream 400 GM 1 APPLIC APPLIC TOPICAL SCH (21:31)
[2019-10-29 02:11] LABS: Glucose,Whole Blood 183 mg/dL (75-99)
[2019-10-29] MEDS: FUROSEMIDE 100 MG in SODIUM CHLORIDE 0.9% 90 ML IV SCH ×6 (06:35→23:16)
[2019-10-29 07:09] LABS: Glucose,Whole Blood 160 mg/dL (75-99)
[2019-10-29 08:52] LABS: Albumin 3.1 g/dL (3.5-5.0); Calcium 8.8 mg/dL (8.4-10.2); Magnesium 2.3 mg/dL (1.6-2.3); Potassium 3.9 mmol/L (3.5-5.1); Total Bilirubin 0.5 mg/dL (0.2-1.3); Total Protein 5.9 g/dL (6.3-8.2)
[2019-10-29] MEDS: CLOPIDOGREL 75 MG TAB PO SCH (08:53)
[2019-10-29] MEDS: hydrALAZINE HCL 25 MG TAB PO SCH ×3 (08:53→23:17)
[2019-10-29] MEDS: carvediloL 12.5 MG TAB PO SCH ×2 (08:53→17:03)
[2019-10-29] MEDS: INSULIN DETEMIR (LEVEMIR) 100 UNIT/ML SYR SQ SCH (08:53)
[2019-10-29] MEDS: FAMOTIDINE 20 MG TAB PO SCH (08:53)
[2019-10-29] MEDS: POTASSIUM CHLORIDE ER 10 MEQ TAB.ER.PRT PO SCH ×2 (08:53→20:09)
[2019-10-29] MEDS: CALCIUM ACETATE 667 MG TAB PO SCH ×2 (08:53→17:02)
[2019-10-29] MEDS: AZITHROMYCIN 500 MG TAB PO SCH (08:53)
[2019-10-29] MEDS: ASPIRIN 81 MG PO SCH (08:53)
[2019-10-29] MEDS: allopurinoL 100 MG TAB PO SCH ×2 (08:53→20:09)
[2019-10-29] MEDS: INSULIN ASPART (NovoLOG) 100 UNIT/ML VIAL SQ SCH ×4 (08:54→20:12)
[2019-10-29] MEDS: NITROGLYCERIN OINT 1 INCH/GM PACKET TOPICAL SCH ×4 (08:56→20:30)
[2019-10-29] MEDS: metOLazone 5 MG TAB PO SCH (08:56)
--- NOTE | 2019-10-29 08:58 | P.PN ---
Subjective Patient is seen in follow-up for acute kidney injury on chronic kidney disease. Patient has chronic kidney disease stage IV with baseline creatinine the range of 2.5-3. Remains edematous but starting to improve. Renal function stable. Denies chest pain or shortness of breath. Hemodynamically stable. urine output also better - over 3 L in the last 24 hours. Vital signs are stable. General: The patient appeared well nourished and normally developed. HEENT: Head exam is unremarkable. Neck is without jugular venous distension. LUNGS: Breath sounds decreased. HEART: Rate and Rhythm are regular. ABDOMEN: Soft, nontender. Obese. EXTREMITITES: 2+ edema. Objective - Vital Signs Vital signs: Vital Signs Temp 98.1 F 10/29/19 04:24 Pulse 98 10/29/19 04:24 Resp 18 10/29/19 04:24 BP 151/64 10/29/19 04:24 Pulse Ox 94 L 10/29/19 04:24 Intake & Output 10/28/19 10/29/19 10/29/19 18:59 06:59 18:59 Intake Total 1125.25 572.25 680 Output Total 1350 2175 575 Balance -224.75 -1602.75 105 Weight 116.3 kg Intake: Intake, IV Titration 93.25 100.25 Amount Furosemide 100 mg In 93.25 100.25 Sodium Chloride 0.9% 90 ml @ 15 MG/HR 15 mls/hr IV .Q6H40M [facility] Rx#: [id number] Oral 1032 [id number] 680 Output: Urine 1350 2175 575 Other: Voiding Method Urinal Urinal # Voids 2 1 - Labs CBC & Chem 7: 10/27/19 05:55 10/29/19 07:34 Labs: Abnormal Lab Results - Last 24 Hours (Table) 10/28/19 10/28/19 10/29/19 Range/Units 16:56 20:19 02:10 BUN (9-20) mg/dL Creatinine (0.66-1.25) mg/dL Glucose (74-99) mg/dL POC Glucose (mg/dL) 145 H 203 H 183 H (75-99) mg/dL AST (17-59) U/L ALT (4-49) U/L Total Protein (6.3-8.2) g/dL Albumin (3.5-5.0) g/dL 10/29/19 10/29/19 Range/Units 07:07 07:34 BUN 75 H (9-20) mg/dL Creatinine 3.47 H (0.66-1.25) mg/dL Glucose 153 H (74-99) mg/dL POC Glucose (mg/dL) 160 H (75-99) mg/dL AST 69 H (17-59) U/L ALT 111 H (4-49) U/L Total Protein 5.9 L (6.3-8.2) g/dL Albumin 3.1 L (3.5-5.0) g/dL Microbiology - Last 24 Hours (Table) 10/24/19 12:10 Blood Culture - Preliminary Blood No Growth after 96 hours Assessment and Plan Plan: Assessment: 1. Acute kidney injury mostly prerenal secondary to cardiorenal syndrome. Renal function fairly stable. Creatinine 3.13 on admission and is stable at 3.47 today. No hydronephrosis noted on kidney ultrasound. 2. Chronic kidney disease stage IV baseline creatinine 2.5-3 secondary to diabetic kidney disease and cardiorenal syndrome. 3. Volume overload. 4. Acute on chronic systolic CHF with ejection fraction of 40-45%. 5. Insulin-dependent diabetes mellitus. 6. Hypertension with chronic kidney disease. Controlled. 7. Lower extremity cellulitis maintained on antibiotics. 8. Non-ST elevated myocardial infarction s/p IV heparin. Cardiology following. 9. Hyperphosphatemia secondary to acute kidney injury maintained on PhosLo. Plan: Maintain Lasix drip at 15 mL an hour. Continue metolazone 5 mg once daily. 1500 mL fluid restriction and low-salt diet. Daily weights. Strict I's and O's. Avoid nephrotoxins. Continue to monitor renal function and urine output. I discussed with the patient the potential need for renal replacement therapy for improvement in his volume status. He's currently refusing and wants to continue with IV Lasix. Continue to assess on daily basis - urine output better.
[2019-10-29 09:11] LABS: Anisocytosis Slight; Basophils % (A) 1 %; Eosinophils # (A) 0.3 k/uL (0-0.7); Eosinophils % (A) 5 %; HCT 32.9 % (39.0-53.0); HGB 10.2 gm/dL (13.0-17.5); Hypochromasia Marked; Lymphocytes # (A) 0.9 k/uL (1.0-4.8); Lymphocytes % (A) 15 %; MCH 29.6 pg (25.0-35.0); MCV 95.4 fL (80.0-100.0); Macrocytosis Slight; Mean Platelet Volume 9.5; Monocytes # (A) 0.5 k/uL (0-1.0); Monocytes % (A) 8 %; Neutrophils # (A) 4.1 k/uL (1.3-7.7); Neutrophils % (A) 69 %; Platelet Count 176 k/uL (150-450); RBC 3.44 m/uL (4.30-5.90); RDW 18.2 % (11.5-15.5); WBC 5.9 k/uL (3.8-10.6)
[2019-10-29 12:11] LABS: Glucose,Whole Blood 231 mg/dL (75-99)
--- NOTE | 2019-10-29 12:15 | P.PN ---
Subjective director call hospitalist covering Dr. Carmona over the weekend. He continues to resume the care of the patient on 10/30 From records This is 69-year-old gentleman with history of CAD, IN, CABG, cardiac catheterization with stents, diabetes mellitus, gastroesophageal reflux disease, hyperlipidemia, hypertension, renal failure and multiple other medical issues, presented to the ER with complaints of sustained a scratch to the right lower extremity 2 weeks ago, worsening redness, blistering with drainage and edema, accompanied by shortness of breath, occasional productive cough with white sputum. Per ER note, patient's family also disclosed patient had been exhibiting mild confusion. Denies nausea vomiting or diarrhea. Denies chest pain, palpitations. EKG reported sinus rhythm, sinus arrhythmia, inferior infarct, age undetermined, troponins 6.13, 6.100 .Denies lightheadedness, dizziness or focal deficits. Afebrile, T-max 99.1 , WBC 22.6, trending down to 16.6, maintaining O2 sats in the 90s on 2 L nasal cannula, creatinine 3.13, blood sugars fairly controlled, 140s to 170s with hemaglobin A1c of 5.7. Lactic acid 1.8. Hemoglobin 10.5. Brain CT reporting no acute infarcts or mass lesions evident, atrophy with paraventricular white matter ischemic changes. Initial Chest x-ray reporting left lower lobe infiltrate and pleural effusion, correlate for CHF or pneumonia. Follow-up chest x-ray reported increasing consolidation of the left representing combination of infiltrate and pleural effusion, right lung demonstrated bibasilar subsegmental consolidation. X-ray of right tibia/fibula reported no acute fracture or dislocation, fairly moderate tricompartment joint space loss in the right knee, moderate to severe diffuse subcutaneous edema and soft tissue swelling. [id number] maintained on Lasix IV push with minimal urine output, minimal improvement in bilateral lower extremity edema. Converted to Lasix drip as per nephrology. Creatinine mildly worsened, up to 3.63 Vital signs stable, maintaining O2 sats in the 90s on 2 L nasal cannula. Afebrile, WBC trending down, 11.6. Denies chest pain, palpitations. 10/27/2019 maintained on both heparin and Lasix drips. Continues to have significant edema. Creatinine remains at 3.6. Maintaining O2 sats in the 90s on 2 L nasal cannula. Hemoglobin 9.9. Hypoglycemic this morning, reports he did not eat his hs snack. Current blood sugar 118. Denies nausea vomiting or diarrhea. Denies abdominal pain. Denies chest pain, palpitations or increased shortness of breath. 10/28/2019 continues on heparin and Lasix drip. Lasix drip increased yesterday. 24-hour I&O reflecting a negative fluid balance, but continues to have significant edema with increased oxygen requirements today . Requiring 3 L nasal cannula to maintain O2 sats in the 90s. Creatinine 3.52. Hypoglycemic this morning. Denies chest pain, palpitations. Ambulating, reports exertional shortness of breath. Subjective 10/29/2019 Patient is awake and alert. Vitals are stable and his saturating 95% on room air. CBC and BMP are unremarkable except from creatinine is 3.4. Liver enzymes slightly elevated, we will need to follow up tomorrow Hemoglobin A1c 5.7% Patient is currently on Lasix drip at 15 mg per hour, she is on metolazone 5 mg and fluid restriction. [employer] team are considering renal replacement therapy if no improvement Patient is followed by cardiology and if undersurface Objective - Vital Signs Vital signs: Vital Signs Temp 98.2 F 10/29/19 08:10 Pulse 71 10/29/19 08:10 Resp 18 10/29/19 08:10 BP 168/73 10/29/19 08:10 Pulse Ox 95 10/29/19 08:10 Intake & Output 10/28/19 10/29/19 10/29/19 18:59 06:59 18:59 Intake Total 1125.25 572.25 715 Output Total 1350 2175 825 Balance -224.75 -1602.75 -110 Weight 116.3 kg Intake: Intake, IV Titration 93.25 100.25 35 Amount Furosemide 100 mg In 93.25 100.25 35 Sodium Chloride 0.9% 90 ml @ 15 MG/HR 15 mls/hr IV .Q6H40M [facility] Rx#: [id number] Oral [id number] [id number] Output: Urine 1350 2175 825 Other: Voiding Method Urinal Urinal # Voids 2 1 - Exam GENERAL: The patient is alert and oriented x3, not in any acute distress. Well developed, well nourished. HEENT: Pupils are round and equally reacting to light. EOMI. No scleral icterus. No conjunctival pallor. Normocephalic, atraumatic. No pharyngeal erythema. No thyromegaly. CARDIOVASCULAR: S1 and S2 present. No murmurs, rubs, or gallops. -PULMONARY: Chest is clear to auscultation, no wheezing. Scattered basilar crepitations, decreased breaths sounds on the left side ABDOMEN: Soft, nontender, nondistended, normoactive bowel sounds. No palpable organomegaly. MUSCULOSKELETAL: No joint swelling or deformity. -EXTREMITIES: No cyanosis, clubbing. 3+ bilateral leg edema, severe and intense NEUROLOGICAL: Gross neurological examination did not reveal any focal deficits. SKIN: No rashes. no petechiae. - Labs CBC & Chem 7: 10/29/19 07:34 10/29/19 07:34 Labs: Abnormal Lab Results - Last 24 Hours (Table) 10/28/19 10/28/19 10/29/19 Range/Units 16:56 20:19 02:10 RBC (4.30-5.90) m/uL Hgb (13.0-17.5) gm/dL Hct (39.0-53.0) % RDW (11.5-15.5) % Lymphocytes # (1.0-4.8) k/uL BUN (9-20) mg/dL Creatinine (0.66-1.25) mg/dL Glucose (74-99) mg/dL POC Glucose (mg/dL) 145 H 203 H 183 H (75-99) mg/dL AST (17-59) U/L ALT (4-49) U/L Total Protein (6.3-8.2) g/dL Albumin (3.5-5.0) g/dL 10/29/19 10/29/19 10/29/19 Range/Units 07:07 07:34 07:34 RBC 3.44 L (4.30-5.90) m/uL Hgb 10.2 L (13.0-17.5) gm/dL Hct 32.9 L (39.0-53.0) % RDW 18.2 H (11.5-15.5) % Lymphocytes # 0.9 L (1.0-4.8) k/uL BUN 75 H (9-20) mg/dL Creatinine 3.47 H (0.66-1.25) mg/dL Glucose 153 H (74-99) mg/dL POC Glucose (mg/dL) 160 H (75-99) mg/dL AST 69 H (17-59) U/L ALT 111 H (4-49) U/L Total Protein 5.9 L (6.3-8.2) g/dL Albumin 3.1 L (3.5-5.0) g/dL Microbiology - Last 24 Hours (Table) 10/24/19 12:10 Blood Culture - Preliminary Blood No Growth after 96 hours Assessment and Plan Assessment: Acute and chronic systolic CHF with left pleural effusion secondary to her heart disease Left lower lobe infiltrate with small bilateral pleural effusions Acute hypoxic respiratory failure secondary to the above Acute metabolic encephalopathy, multifactorial, secondary to all the above Acute renal failure, prerenal secondary to cardiorenal syndrome Chronic kidney disease, stage IV, baseline 2.5-3 Cellulitis of bilateral lower extremities, right greater than left Leukocytosis CAD, history of IN, CABG, cardiac catheterization with stent Diabetes mellitus, hemoglobin A1c 5.7 Gastroesophageal reflux disease Hypertension Hyperlipidemia Hypokalemia secondary to diuresing Urinary retention being ruled out Morbid obesity, BMI 34.7 Plan: This is a pleasant 69 years old male who presents with acute CHF and kidney disease. His fluid overload is placed on Lasix drip, there is no significant response and nephrology considering renal replacement therapy. Cardiology of the case as well. Continue with aspirin and Plavix. Labs and medication were reviewed.. Continue same treatment. Continue with symptomatic treatment. Resume home medication. Monitor lytes and vitals. DVT and GI prophylaxis. Further recommendations of the clinical course of the patient DVT prophylaxis: Subcutaneous heparin GI Prophylaxis: Pepcid PT/OT: Pending Prognosis is guarded
--- NOTE | 2019-10-29 12:46 | P.PN ---
Subjective Progress Note Date: 10/29/19 This is a 69-year-old gentleman with history of diabetes, hypertension, hyperlipidemia, coronary artery disease with prior [place] and PCI who presented to the hospital with symptoms of bilateral lower extremity edema and symptoms of shortness of breath which had been going on for several days. He is currently receiving treatment for congestive heart failure, was on IV Lasix and had a very decreased urine output through the night last night. Therefore patient was initiated on IV Lasix drip by nephrology today. Repeat chest x-ray showed increasing consolidation of the left likely representing a combination of infiltrate and pleural effusion. Blood pressure 137/70 with a heart rate in the 60s, 99% on 2 L of oxygen. White blood cell count 11.6, hemoglobin 9.8, platelet count 166. Sodium 141, potassium 4.1, BUN 53, creatinine 3.6. 10/27/2019 Patient seen and examined this morning, still continues to feel quite short of breath, he did have more urine output through the night but still quite minimal. His Lasix drip was increased to 15 mg per hour and Zaroxolyn was added by nephrology. Dr. Orosco also had a lengthy discussion with the patient regarding initiating dialysis. The patient wishes to think about this. Blood pressure 140/80 with a heart rate in the 60s to 70s, 99% on 2 L. White blood cell count 6.9, hemoglobin 9.9, platelet count 156. Sodium 137, potassium 4.3, BUN 61, creatinine 3.6. 10/28/2019 Patient was seen and examined this morning, sitting up at the chair at bedside. Overall he states he is feeling significantly better. He diuresed much more through the night last night as compared with the night prior. His weight is not reflective of this. He put out a little over 2 L and 24 hours. We will maintain a Lasix drip at 15 mg an hour and continue current dose of metolazone. 10/29/2019 Patient seen and examined this morning, continue to put out fairly good urine through the night last night his weight is down 3 kg today, he continues to be on the IV Lasix drip along with the metolazone. Blood pressure 150/60 with a heart rate 80-90, 94% on room air. Potassium 3.9, BUN 75, creatinine 3.4, magnesium 2.3, white blood cell count 5.9, hemoglobin 10.2, and platelet count 176. Objective - Vital Signs Vital signs: Vital Signs Temp 98.2 F 10/29/19 08:10 Pulse 71 10/29/19 08:10 Resp 18 10/29/19 08:10 BP 168/73 10/29/19 08:10 Pulse Ox 95 10/29/19 08:10 Intake & Output 10/28/19 10/29/19 10/29/19 18:59 06:59 18:59 Intake Total 1125.25 572.25 715 Output Total 1350 2175 825 Balance -224.75 -1602.75 -110 Weight 116.3 kg Intake: Intake, IV Titration 93.25 100.25 35 Amount Furosemide 100 mg In 93.25 100.25 35 Sodium Chloride 0.9% 90 ml @ 15 MG/HR 15 mls/hr IV .Q6H40M [facility] Rx#: [id number] Oral [id number] [id number] Output: Urine 1350 2175 825 Other: Voiding Method Urinal Urinal # Voids 2 1 - Labs CBC & Chem 7: 10/29/19 07:34 10/29/19 07:34 Labs: Abnormal Lab Results - Last 24 Hours (Table) 10/28/19 10/28/19 10/29/19 Range/Units 16:56 20:19 02:10 RBC (4.30-5.90) m/uL Hgb (13.0-17.5) gm/dL Hct (39.0-53.0) % RDW (11.5-15.5) % Lymphocytes # (1.0-4.8) k/uL BUN (9-20) mg/dL Creatinine (0.66-1.25) mg/dL Glucose (74-99) mg/dL POC Glucose (mg/dL) 145 H 203 H 183 H (75-99) mg/dL AST (17-59) U/L ALT (4-49) U/L Total Protein (6.3-8.2) g/dL Albumin (3.5-5.0) g/dL 10/29/19 10/29/19 10/29/19 Range/Units 07:07 07:34 07:34 RBC 3.44 L (4.30-5.90) m/uL Hgb 10.2 L (13.0-17.5) gm/dL Hct 32.9 L (39.0-53.0) % RDW 18.2 H (11.5-15.5) % Lymphocytes # 0.9 L (1.0-4.8) k/uL BUN 75 H (9-20) mg/dL Creatinine 3.47 H (0.66-1.25) mg/dL Glucose 153 H (74-99) mg/dL POC Glucose (mg/dL) 160 H (75-99) mg/dL AST 69 H (17-59) U/L ALT 111 H (4-49) U/L Total Protein 5.9 L (6.3-8.2) g/dL Albumin 3.1 L (3.5-5.0) g/dL 10/29/19 Range/Units 12:09 RBC (4.30-5.90) m/uL Hgb (13.0-17.5) gm/dL Hct (39.0-53.0) % RDW (11.5-15.5) % Lymphocytes # (1.0-4.8) k/uL BUN (9-20) mg/dL Creatinine (0.66-1.25) mg/dL Glucose (74-99) mg/dL POC Glucose (mg/dL) 231 H (75-99) mg/dL AST (17-59) U/L ALT (4-49) U/L Total Protein (6.3-8.2) g/dL Albumin (3.5-5.0) g/dL Microbiology - Last 24 Hours (Table) 10/24/19 12:10 Blood Culture - Preliminary Blood No Growth after 96 hours Assessment and Plan Plan: Assessment and plan: 1. Acute on chronic systolic CHF with ejection fraction of 40-45%. 2. Chronic kidney disease stage IV baseline creatinine 2.5-3 secondary to diabetic kidney disease and cardiorenal syndrome. 3. Volume overload. 4. Acute kidney injury mostly prerenal secondary to cardiorenal syndrome. Creatinine 3.13 on admission. Rule out urinary retention. 5. Insulin-dependent diabetes mellitus. 6. Hypertension with chronic kidney disease. Controlled. 7. Lower extremity cellulitis maintained on antibiotics. 8. Possible non-Q-wave myocardial infarction 9. Coronary artery disease with prior PCI Plan From cardiology's perspective, we agree on maintaining a Lasix drip at 15 mg an hour along with Zaroxolyn, continue to monitor intake and output along with daily weights and daily lytes BUN and creatinine. DNP note has been reviewed, I agree with a documented findings and plan of care. Patient was seen and examined.
[2019-10-29 17:06] LABS: Glucose,Whole Blood 158 mg/dL (75-99)
[2019-10-29] MEDS: guaiFENesin-DM 100-10MG/5ML 10 ML CUP PO PRN (17:51)
[2019-10-29 20:02] LABS: Glucose,Whole Blood 175 mg/dL (75-99)
[2019-10-29] MEDS: ATORVASTATIN 20 MG TAB PO SCH (20:09)
[2019-10-30 02:01] LABS: Glucose,Whole Blood 95 mg/dL (75-99)
[2019-10-30] MEDS: SILVER sulfADIAZINE Cream 400 GM 1 APPLIC APPLIC TOPICAL SCH ×2 (06:33→21:00)
[2019-10-30 06:58] LABS: Calcium 8.8 mg/dL (8.4-10.2); Magnesium 2.1 mg/dL (1.6-2.3); Phosphorus 4.5 mg/dL (2.5-4.5); Potassium 3.4 mmol/L (3.5-5.1)
[2019-10-30 07:11] LABS: Glucose,Whole Blood 83 mg/dL (75-99)
[2019-10-30] MEDS: INSULIN ASPART (NovoLOG) 100 UNIT/ML VIAL SQ SCH ×4 (08:20→21:00)
[2019-10-30] MEDS: ASPIRIN 81 MG PO SCH (08:27)
[2019-10-30] MEDS: AZITHROMYCIN 500 MG TAB PO SCH (08:27)
[2019-10-30] MEDS: POTASSIUM CHLORIDE ER 10 MEQ TAB.ER.PRT PO SCH ×2 (08:27→21:00)
[2019-10-30] MEDS: CALCIUM ACETATE 667 MG TAB PO SCH ×2 (08:27→17:35)
[2019-10-30] MEDS: NITROGLYCERIN OINT 1 INCH/GM PACKET TOPICAL SCH ×2 (08:27→12:15)
[2019-10-30] MEDS: allopurinoL 100 MG TAB PO SCH ×2 (08:27→21:00)
[2019-10-30] MEDS: hydrALAZINE HCL 25 MG TAB PO SCH ×2 (08:27→12:29)
[2019-10-30] MEDS: INSULIN DETEMIR (LEVEMIR) 100 UNIT/ML SYR SQ SCH (08:28)
[2019-10-30] MEDS: carvediloL 12.5 MG TAB PO SCH ×2 (08:28→17:35)
[2019-10-30] MEDS: CLOPIDOGREL 75 MG TAB PO SCH (08:28)
[2019-10-30] MEDS: metOLazone 5 MG TAB PO SCH (08:28)
[2019-10-30] MEDS: FAMOTIDINE 20 MG TAB PO SCH (08:28)
[2019-10-30] MEDS ORDERED: POTASSIUM CHLORIDE ER 20 MEQ TAB.ER PO STA (08:53)
--- NOTE | 2019-10-30 08:54 | P.PN ---
Subjective Patient is seen in follow-up for acute kidney injury on chronic kidney disease. Patient has chronic kidney disease stage IV with baseline creatinine the range of 2.5-3. Remains edematous but starting to improve. Renal function stable. Denies chest pain or shortness of breath. Hemodynamically stable. urine output also better - over 3 L in the last 24 hours. Weight trending down. Vital signs are stable. General: The patient appeared well nourished and normally developed. HEENT: Head exam is unremarkable. Neck is without jugular venous distension. LUNGS: Breath sounds decreased. HEART: Rate and Rhythm are regular. ABDOMEN: Soft, nontender. Obese. EXTREMITITES: 2+ edema. Objective - Vital Signs Vital signs: Vital Signs Temp 98.1 F 10/30/19 03:54 Pulse 67 10/30/19 03:54 Resp 18 10/30/19 03:54 BP 133/78 10/30/19 03:54 Pulse Ox 97 10/30/19 03:54 Intake & Output 10/29/19 10/30/19 10/30/19 18:59 06:59 18:59 Intake Total 954.0 1161 Output Total 1925 2525 Balance -971.0 -1364 Weight 111.4 kg Intake: IV 105 furosemide 105 Intake, IV Titration 169.0 81 Amount Furosemide 100 mg In 169.0 81 Sodium Chloride 0.9% 90 ml @ 15 MG/HR 15 mls/hr IV .Q6H40M [facility] Rx#: [id number] Oral 680 1080 Output: Urine 1925 2525 Other: Voiding Method Urinal Urinal # Voids 1 - Labs CBC & Chem 7: 10/29/19 07:34 10/30/19 06:11 Labs: Abnormal Lab Results - Last 24 Hours (Table) 10/29/19 10/29/19 10/29/19 Range/Units 07:34 07:34 12:09 RBC 3.44 L (4.30-5.90) m/uL Hgb 10.2 L (13.0-17.5) gm/dL Hct 32.9 L (39.0-53.0) % RDW 18.2 H (11.5-15.5) % Lymphocytes # 0.9 L (1.0-4.8) k/uL Potassium (3.5-5.1) mmol/L Carbon Dioxide (22-30) mmol/L BUN 75 H (9-20) mg/dL Creatinine 3.47 H (0.66-1.25) mg/dL Glucose 153 H (74-99) mg/dL POC Glucose (mg/dL) 231 H (75-99) mg/dL AST 69 H (17-59) U/L ALT 111 H (4-49) U/L Total Protein 5.9 L (6.3-8.2) g/dL Albumin 3.1 L (3.5-5.0) g/dL 10/29/19 10/29/19 10/30/19 Range/Units 17:04 20:01 06:11 RBC (4.30-5.90) m/uL Hgb (13.0-17.5) gm/dL Hct (39.0-53.0) % RDW (11.5-15.5) % Lymphocytes # (1.0-4.8) k/uL Potassium 3.4 L (3.5-5.1) mmol/L Carbon Dioxide 31 H (22-30) mmol/L BUN 73 H (9-20) mg/dL Creatinine 3.44 H (0.66-1.25) mg/dL Glucose 69 L (74-99) mg/dL POC Glucose (mg/dL) 158 H 175 H (75-99) mg/dL AST (17-59) U/L ALT (4-49) U/L Total Protein (6.3-8.2) g/dL Albumin (3.5-5.0) g/dL Microbiology - Last 24 Hours (Table) 10/24/19 12:10 Blood Culture - Preliminary Blood No Growth after 120 hours Assessment and Plan Plan: Assessment: 1. Acute kidney injury mostly prerenal secondary to cardiorenal syndrome. Renal function fairly stable. Creatinine 3.13 on admission and is stable at 3.44 today. No hydronephrosis noted on kidney ultrasound. 2. Chronic kidney disease stage IV baseline creatinine 2.5-3 secondary to diabetic kidney disease and cardiorenal syndrome. 3. Volume overload. Gradually improving. 4. Acute on chronic systolic CHF with ejection fraction of 40-45%. 5. Insulin-dependent diabetes mellitus. 6. Hypertension with chronic kidney disease. Controlled. 7. Lower extremity cellulitis maintained on antibiotics. 8. Non-ST elevated myocardial infarction s/p IV heparin. Cardiology following. 9. Hyperphosphatemia secondary to acute kidney injury maintained on PhosLo. Better. 10. Hypokalemia secondary to diuresis. Magnesium normal. Plan: Maintain Lasix drip at 15 mL an hour. Continue metolazone 5 mg once daily. 1500 mL fluid restriction and low-salt diet. Daily weights. Strict I's and O's. Avoid nephrotoxins. Continue to monitor renal function and urine output. I discussed with the patient the potential need for renal replacement therapy for improvement in his volume status. He's currently refusing and wants to continue with IV Lasix. Continue to assess on daily basis. Replace potassium.
[2019-10-30 12:04] LABS: Glucose,Whole Blood 167 mg/dL (75-99)
--- NOTE | 2019-10-30 12:18 | P.PN ---
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 Carmona over the weekend. He continues to resume the care of the patient on 10/30 From records This is 69-year-old gentleman with history of CAD, [place], CABG, cardiac catheterization with stents, diabetes mellitus, gastroesophageal reflux disease, hyperlipidemia, hypertension, renal failure and multiple other medical issues, presented to the ER with complaints of sustained a scratch to the right lower extremity 2 weeks ago, worsening redness, blistering with drainage and edema, accompanied by shortness of breath, occasional productive cough with white sputum. Per ER note, patient's family also disclosed patient had been exhibiting mild confusion. Denies nausea vomiting or diarrhea. Denies chest pain, palpitations. EKG reported sinus rhythm, sinus arrhythmia, inferior infarct, age undetermined, troponins 6.13, 6.100 .Denies lightheadedness, dizziness or focal deficits. Afebrile, T-max 99.1 , WBC 22.6, trending down to 16.6, maintaining O2 sats in the 90s on 2 L nasal cannula, creatinine 3.13, blood sugars fairly controlled, 140s to 170s with hemaglobin A1c of 5.7. Lactic acid 1.8. Hemoglobin 10.5. Brain CT reporting no acute infarcts or mass lesions evident, atrophy with paraventricular white matter ischemic changes. Initial Chest x-ray reporting left lower lobe infiltrate and pleural effusion, correlate for CHF or pneumonia. Follow-up chest x-ray reported increasing consolidation of the left representing combination of infiltrate and pleural effusion, right lung demonstrated bibasilar subsegmental consolidation. X-ray of right tibia/fibula reported no acute fracture or dislocation, fairly moderate tricompartment joint space loss in the right knee, moderate to severe diffuse subcutaneous edema and soft tissue swelling. [id number] maintained on Lasix IV push with minimal urine output, minimal improvement in bilateral lower extremity edema. Converted to Lasix drip as per nephrology. Creatinine mildly worsened, up to 3.63 Vital signs stable, maintaining O2 sats in the 90s on 2 L nasal cannula. Afebrile, WBC trending down, 11.6. Denies chest pain, palpitations. 10/27/2019 maintained on both heparin and Lasix drips. Continues to have significant edema. Creatinine remains at 3.6. Maintaining O2 sats in the 90s on 2 L nasal cannula. Hemoglobin 9.9. Hypoglycemic this morning, reports he did not eat his hs snack. Current blood sugar 118. Denies nausea vomiting or diarrhea. Denies abdominal pain. Denies chest pain, palpitations or increased shortness of breath. 10/28/2019 continues on heparin and Lasix drip. Lasix drip increased yesterday. 24-hour I&O reflecting a negative fluid balance, but continues to have significant edema with increased oxygen requirements today . Requiring 3 L nasal cannula to maintain O2 sats in the 90s. Creatinine 3.52. Hypoglycemic this morning. Denies chest pain, palpitations. Ambulating, reports exertional shortness of breath. Subjective 10/29/2019 Patient is awake and alert. Vitals are stable and his saturating 95% on room air. CBC and BMP are unremarkable except from creatinine is 3.4. Liver enzymes slightly elevated, we will need to follow up tomorrow Hemoglobin A1c 5.7% Patient is currently on Lasix drip at 15 mg per hour, she is on metolazone 5 mg and fluid restriction. Radiology Technologist team are considering renal replacement therapy if no improvement Patient is followed by cardiology and if undersurface 10/30/2019 Patient feels better today no headache or pain. He is sitting in chair comfortable not dyspneic. Vitals are stable. There is still have significant swelling in his legs he remains on Lasix drip at 15 mg per hour, he had negative fluid balance of about 2.6 L and he lost about 5 kg since yesterday. He remains on Lasix drip and Zithromax No other new complaints, no chest pain or dyspnea. No fever Objective - Vital Signs Vital signs: Vital Signs Temp 98.6 F 10/30/19 08:25 Pulse 75 10/30/19 08:25 Resp 18 10/30/19 08:25 BP 177/79 10/30/19 08:25 Pulse Ox 94 L 10/30/19 08:25 Intake & Output 10/29/19 10/30/19 10/30/19 18:59 06:59 18:59 Intake Total 954.0 1161 240 Output Total 4124 1399 530 Balance -971.0 -1364 -290 Weight 111.4 kg Intake: IV 105 furosemide 105 Intake, IV Titration 169.0 81 Amount Furosemide 100 mg In 169.0 81 Sodium Chloride 0.9% 90 ml @ 15 MG/HR 15 mls/hr IV .Q6H40M [facility] Rx#: [id number] Oral 680 1080 240 Output: Urine 8458 8012 530 Other: Voiding Method Urinal Urinal # Voids 1 2 # Bowel Movements 1 - Exam GENERAL: The patient is alert and oriented x3, not in any acute distress. Well developed, well nourished. HEENT: Pupils are round and equally reacting to light. EOMI. No scleral icterus. No conjunctival pallor. Normocephalic, atraumatic. No pharyngeal erythema. No thyromegaly. CARDIOVASCULAR: S1 and S2 present. No murmurs, rubs, or gallops. -PULMONARY: Chest is clear to auscultation, no wheezing. Scattered basilar crepitations, decreased breaths sounds on the left side ABDOMEN: Soft, nontender, nondistended, normoactive bowel sounds. No palpable organomegaly. MUSCULOSKELETAL: No joint swelling or deformity. -EXTREMITIES: No cyanosis, clubbing. 3+ bilateral leg edema, severe and intense NEUROLOGICAL: Gross neurological examination did not reveal any focal deficits. SKIN: No rashes. no petechiae. - Labs CBC & Chem 7: 10/29/19 07:34 10/30/19 06:11 Labs: Abnormal Lab Results - Last 24 Hours (Table) 10/29/19 10/29/19 10/30/19 Range/Units 17:04 20:01 06:11 Potassium 3.4 L (3.5-5.1) mmol/L Carbon Dioxide 31 H (22-30) mmol/L BUN 73 H (9-20) mg/dL Creatinine 3.44 H (0.66-1.25) mg/dL Glucose 69 L (74-99) mg/dL POC Glucose (mg/dL) 158 H 175 H (75-99) mg/dL 10/30/19 Range/Units 12:03 Potassium (3.5-5.1) mmol/L Carbon Dioxide (22-30) mmol/L BUN (9-20) mg/dL Creatinine (0.66-1.25) mg/dL Glucose (74-99) mg/dL POC Glucose (mg/dL) 167 H (75-99) mg/dL Microbiology - Last 24 Hours (Table) 10/24/19 12:10 Blood Culture - Preliminary Blood No Growth after 120 hours Assessment and Plan Assessment: Acute and chronic systolic CHF with left pleural effusion secondary to her heart disease Left lower lobe infiltrate with small bilateral pleural effusions Acute hypoxic respiratory failure secondary to the above Acute metabolic encephalopathy, multifactorial, secondary to all the above Acute renal failure, prerenal secondary to cardiorenal syndrome Chronic kidney disease, stage IV, baseline 2.5-3 Cellulitis of bilateral lower extremities, right greater than left Leukocytosis CAD, history of [place], CABG, cardiac catheterization with stent Diabetes mellitus, hemoglobin A1c 5.7 Gastroesophageal reflux disease Hypertension Hyperlipidemia Hypokalemia secondary to diuresing Urinary retention being ruled out Morbid obesity, BMI 34.7 Plan: This is a pleasant 69 years old male who presents with acute CHF and kidney disease. His fluid overload is placed on Lasix drip, there is no significant response and nephrology considering renal replacement therapy. Cardiology of the case as well. Continue with aspirin and Plavix. Labs and medication were reviewed.. Continue same treatment. Continue with symptomatic treatment. Resume home medication. Monitor lytes and vitals. DVT and GI prophylaxis. Further recommendations of the clinical course of the patient DVT prophylaxis: Subcutaneous heparin GI Prophylaxis: Pepcid PT/OT: Pending Prognosis is guarded
[2019-10-30] MEDS: FUROSEMIDE 100 MG in SODIUM CHLORIDE 0.9% 90 ML IV SCH ×3 (12:28→22:44)
--- NOTE | 2019-10-30 12:43 | P.PN ---
Subjective Progress Note Date: 10/30/19 This is a 69-year-old gentleman with history of diabetes, hypertension, hyperlipidemia, coronary artery disease with prior PR and PCI who presented to the hospital with symptoms of bilateral lower extremity edema and symptoms of shortness of breath which had been going on for several days. He is currently receiving treatment for congestive heart failure, was on IV Lasix and had a very decreased urine output through the night last night. Therefore patient was initiated on IV Lasix drip by nephrology today. Repeat chest x-ray showed increasing consolidation of the left likely representing a combination of infiltrate and pleural effusion. Blood pressure 137/70 with a heart rate in the 60s, 99% on 2 L of oxygen. White blood cell count 11.6, hemoglobin 9.8, platelet count 166. Sodium 141, potassium 4.1, BUN 53, creatinine 3.6. 10/27/2019 Patient seen and examined this morning, still continues to feel quite short of breath, he did have more urine output through the night but still quite minimal. His Lasix drip was increased to 15 mg per hour and Zaroxolyn was added by nephrology. Dr. Orosco also had a lengthy discussion with the patient regarding initiating dialysis. The patient wishes to think about this. Blood pressure 140/80 with a heart rate in the 60s to 70s, 99% on 2 L. White blood cell count 6.9, hemoglobin 9.9, platelet count 156. Sodium 137, potassium 4.3, BUN 61, creatinine 3.6. 10/28/2019 Patient was seen and examined this morning, sitting up at the chair at bedside. Overall he states he is feeling significantly better. He diuresed much more through the night last night as compared with the night prior. His weight is not reflective of this. He put out a little over 2 L and 24 hours. We will maintain a Lasix drip at 15 mg an hour and continue current dose of metolazone. 10/29/2019 Patient seen and examined this morning, continue to put out fairly good urine through the night last night his weight is down 3 kg today, he continues to be on the IV Lasix drip along with the metolazone. Blood pressure 150/60 with a heart rate 80-90, 94% on room air. Potassium 3.9, BUN 75, creatinine 3.4, magnesium 2.3, white blood cell count 5.9, hemoglobin 10.2, and platelet count 176. 10/30/2019 Patient seen and examined this morning, continues to put out urine, over 3 L in the past 24 hours. Weight continues to go down. Blood pressure this morning 177/78 with a heart rate in the 70s, 94% on room air. Sodium 140, potassium 3.4, BUN 73, creatinine 3.4, magnesium 2.1. Objective - Vital Signs Vital signs: Vital Signs Temp 98.6 F 10/30/19 08:25 Pulse 75 10/30/19 08:25 Resp 18 10/30/19 08:25 BP 177/79 10/30/19 08:25 Pulse Ox 94 L 10/30/19 08:25 Intake & Output 10/29/19 10/30/19 10/30/19 18:59 06:59 18:59 Intake Total 954.0 1261 240 Output Total 1925 2525 530 Balance -971.0 -1264 -290 Weight 111.4 kg Intake: IV 105 furosemide 105 Intake, IV Titration 169.0 181 Amount Furosemide 100 mg In 169.0 181 Sodium Chloride 0.9% 90 ml @ 15 MG/HR 15 mls/hr IV .Q6H40M [facility] Rx#: [id number] Oral 680 1080 240 Output: Urine 1924 2525 530 Other: Voiding Method Urinal Urinal # Voids 1 2 # Bowel Movements 1 - Exam PHYSICAL EXAMINATION: GENERAL: 69-year-old gentleman in no acute distress at the time of my examination HEENT: Head is atraumatic, normocephalic. Pupils equal, round. Sclera anicteric. Conjunctiva are clear. Mucous membranes of the mouth are moist. Neck is supple. There is elevated jugular venous pressure. No carotid bruit is heard. HEART EXAMINATION: Heart S1, S2 normal. No murmur or gallop heard. CHEST EXAMINATION: Lungs are diminished bilaterally ABDOMEN: Soft, nontender. Bowel sounds are heard. No organomegaly noted. EXTREMITIES: 2+ peripheral pulses with 2-3+ evidence of peripheral edema and no calf tenderness noted. NEUROLOGIC patient is awake, alert and oriented 3 . . - Labs CBC & Chem 7: 10/29/19 07:34 10/30/19 06:11 Labs: Abnormal Lab Results - Last 24 Hours (Table) 10/29/19 10/29/19 10/30/19 Range/Units 17:04 20:01 06:11 Potassium 3.4 L (3.5-5.1) mmol/L Carbon Dioxide 31 H (22-30) mmol/L BUN 73 H (9-20) mg/dL Creatinine 3.44 H (0.66-1.25) mg/dL Glucose 69 L (74-99) mg/dL POC Glucose (mg/dL) 158 H 175 H (75-99) mg/dL 10/30/19 Range/Units 12:03 Potassium (3.5-5.1) mmol/L Carbon Dioxide (22-30) mmol/L BUN (9-20) mg/dL Creatinine (0.66-1.25) mg/dL Glucose (74-99) mg/dL POC Glucose (mg/dL) 167 H (75-99) mg/dL Microbiology - Last 24 Hours (Table) 10/24/19 12:10 Blood Culture - Preliminary Blood No Growth after 120 hours Assessment and Plan Plan: Assessment and plan: 1. Acute on chronic systolic CHF with ejection fraction of 40-45%. 2. Chronic kidney disease stage IV baseline creatinine 2.5-3 secondary to diabetic kidney disease and cardiorenal syndrome. 3. Volume overload. 4. Acute kidney injury mostly prerenal secondary to cardiorenal syndrome. Creatinine 3.13 on admission. Rule out urinary retention. 5. Insulin-dependent diabetes mellitus. 6. Hypertension with chronic kidney disease. Controlled. 7. Lower extremity cellulitis maintained on antibiotics. 8. Possible non-Q-wave myocardial infarction 9. Coronary artery disease with prior PCI Plan From cardiology's perspective, we agree on maintaining a Lasix drip at 15 mg an hour along with Zaroxolyn, continue to monitor intake and output along with daily weights and daily lytes BUN and creatinine. We will discontinue the N itropaste, start the patient on Imdur and increase dose of hydralazine for more optimal blood pressure control. DNP note has been reviewed, I agree with a documented findings and plan of care. Patient was seen and examined.
[2019-10-30] MEDS: ISOSORBIDE MONONITRATE ER 60 MG TAB.ER.24H PO SCH (13:21)
[2019-10-30] MEDS: hydrALAZINE HCL 50 MG TAB PO SCH ×2 (15:21→21:02)
[2019-10-30 17:09] LABS: Glucose,Whole Blood 136 mg/dL (75-99)
[2019-10-30 20:35] LABS: Glucose,Whole Blood 136 mg/dL (75-99)
[2019-10-30] MEDS: ATORVASTATIN 20 MG TAB PO SCH (21:00)
[2019-10-31] MEDS: FUROSEMIDE 100 MG in SODIUM CHLORIDE 0.9% 90 ML IV SCH ×3 (04:36→18:16)
[2019-10-31] MEDS: INSULIN ASPART (NovoLOG) 100 UNIT/ML VIAL SQ SCH ×4 (06:43→20:42)
[2019-10-31 06:44] LABS: Glucose,Whole Blood 112 mg/dL (75-99)
[2019-10-31] MEDS: CALCIUM ACETATE 667 MG TAB PO SCH ×2 (06:49→17:33)
[2019-10-31] MEDS: INSULIN DETEMIR (LEVEMIR) 100 UNIT/ML SYR SQ SCH (06:49)
[2019-10-31] MEDS: carvediloL 12.5 MG TAB PO SCH ×2 (06:49→17:34)
[2019-10-31 06:53] LABS: Calcium 8.8 mg/dL (8.4-10.2); Magnesium 2.1 mg/dL (1.6-2.3); Potassium 3.2 mmol/L (3.5-5.1)
[2019-10-31] MEDS: AZITHROMYCIN 500 MG TAB PO SCH (08:32)
[2019-10-31] MEDS: CLOPIDOGREL 75 MG TAB PO SCH (08:32)
[2019-10-31] MEDS: allopurinoL 100 MG TAB PO SCH ×2 (08:32→20:42)
[2019-10-31] MEDS: FAMOTIDINE 20 MG TAB PO SCH (08:32)
[2019-10-31] MEDS: ASPIRIN 81 MG PO SCH (08:32)
[2019-10-31] MEDS: hydrALAZINE HCL 50 MG TAB PO SCH ×3 (08:32→20:42)
[2019-10-31] MEDS: ISOSORBIDE MONONITRATE ER 60 MG TAB.ER.24H PO SCH (08:32)
[2019-10-31] MEDS: POTASSIUM CHLORIDE ER 10 MEQ TAB.ER.PRT PO SCH ×2 (08:32→20:42)
[2019-10-31] MEDS: metOLazone 5 MG TAB PO SCH (08:32)
[2019-10-31 12:05] LABS: Glucose,Whole Blood 174 mg/dL (75-99)
--- NOTE | 2019-10-31 13:09 | P.PN ---
Subjective Progress Note Date: 10/31/19 This is a 69-year-old gentleman with history of diabetes, hypertension, hyperlipidemia, coronary artery disease with prior PR and PCI who presented to the hospital with symptoms of bilateral lower extremity edema and symptoms of shortness of breath which had been going on for several days. He is currently receiving treatment for congestive heart failure, was on IV Lasix and had a very decreased urine output through the night last night. Therefore patient was initiated on IV Lasix drip by nephrology today. Repeat chest x-ray showed increasing consolidation of the left likely representing a combination of infiltrate and pleural effusion. Blood pressure 137/70 with a heart rate in the 60s, 99% on 2 L of oxygen. White blood cell count 11.6, hemoglobin 9.8, platelet count 166. Sodium 141, potassium 4.1, BUN 53, creatinine 3.6. 10/27/2019 Patient seen and examined this morning, still continues to feel quite short of breath, he did have more urine output through the night but still quite minimal. His Lasix drip was increased to 15 mg per hour and Zaroxolyn was added by nephrology. Dr. Orosco also had a lengthy discussion with the patient regarding initiating dialysis. The patient wishes to think about this. Blood pressure 140/80 with a heart rate in the 60s to 70s, 99% on 2 L. White blood cell count 6.9, hemoglobin 9.9, platelet count 156. Sodium 137, potassium 4.3, BUN 61, creatinine 3.6. 10/28/2019 Patient was seen and examined this morning, sitting up at the chair at bedside. Overall he states he is feeling significantly better. He diuresed much more through the night last night as compared with the night prior. His weight is not reflective of this. He put out a little over 2 L and 24 hours. We will maintain a Lasix drip at 15 mg an hour and continue current dose of metolazone. 10/29/2019 Patient seen and examined this morning, continue to put out fairly good urine through the night last night his weight is down 3 kg today, he continues to be on the IV Lasix drip along with the metolazone. Blood pressure 150/60 with a heart rate 80-90, 94% on room air. Potassium 3.9, BUN 75, creatinine 3.4, magnesium 2.3, white blood cell count 5.9, hemoglobin 10.2, and platelet count 176. 10/30/2019 Patient seen and examined this morning, continues to put out urine, over 3 L in the past 24 hours. Weight continues to go down. Blood pressure this morning 177/78 with a heart rate in the 70s, 94% on room air. Sodium 140, potassium 3.4, BUN 73, creatinine 3.4, magnesium 2.1. 10/31/2019 Patient seen and examined this morning, again diuresed well through the night last night. Blood pressure 152/70 with a heart rate in the 70s, 95% on room air. Sodium 139, potassium 3.2, BUN 77, creatinine 3.1, magnesium 2.1. Objective - Vital Signs Vital signs: Vital Signs Temp 98.2 F 10/31/19 08:22 Pulse 72 10/31/19 11:09 Resp 18 10/31/19 11:09 BP 152/72 10/31/19 11:08 Pulse Ox 95 10/31/19 11:08 Intake & Output 10/30/19 10/31/19 10/31/19 18:59 06:59 18:59 Intake Total 557 165 340 Output Total 1630 2375 640 Balance -7903 -2210 -300 Weight 107 kg Intake: Intake, IV Titration 77 165 100 Amount Furosemide 100 mg In 77 165 100 Sodium Chloride 0.9% 90 ml @ 15 MG/HR 15 mls/hr IV .Q6H40M [facility] Rx#: [id number] Oral 480 240 Output: Urine 1630 2375 640 Other: Voiding Method Urinal # Voids 2 1 # Bowel Movements 1 - Exam PHYSICAL EXAMINATION: GENERAL: 69-year-old gentleman in no acute distress at the time of my examination HEENT: Head is atraumatic, normocephalic. Pupils equal, round. Sclera anicteric. Conjunctiva are clear. Mucous membranes of the mouth are moist. Neck is supple. There is elevated jugular venous pressure. No carotid bruit is heard. HEART EXAMINATION: Heart S1, S2 normal. No murmur or gallop heard. CHEST EXAMINATION: Lungs are diminished bilaterally ABDOMEN: Soft, nontender. Bowel sounds are heard. No organomegaly noted. EXTREMITIES: 2+ peripheral pulses with 2-3+ evidence of peripheral edema and no calf tenderness noted. NEUROLOGIC patient is awake, alert and oriented 3 . . - Labs CBC & Chem 7: 10/29/19 07:34 10/31/19 05:32 Labs: Abnormal Lab Results - Last 24 Hours (Table) 10/30/19 10/30/19 10/31/19 Range/Units 17:08 20:20 05:32 Potassium 3.2 L (3.5-5.1) mmol/L BUN 77 H (9-20) mg/dL Creatinine 3.19 H (0.66-1.25) mg/dL POC Glucose (mg/dL) 136 H 136 H (75-99) mg/dL 10/31/19 10/31/19 Range/Units 06:42 12:05 Potassium (3.5-5.1) mmol/L BUN (9-20) mg/dL Creatinine (0.66-1.25) mg/dL POC Glucose (mg/dL) 112 H 174 H (75-99) mg/dL Microbiology - Last 24 Hours (Table) 10/24/19 12:10 Blood Culture - Final Blood No Growth after 144 hours Assessment and Plan Plan: Assessment and plan: 1. Acute on chronic systolic CHF with ejection fraction of 40-45%. 2. Chronic kidney disease stage IV baseline creatinine 2.5-3 secondary to diabetic kidney disease and cardiorenal syndrome. 3. Volume overload. 4. Acute kidney injury mostly prerenal secondary to cardiorenal syndrome. Creatinine 3.13 on admission. Rule out urinary retention. 5. Insulin-dependent diabetes mellitus. 6. Hypertension with chronic kidney disease. Controlled. 7. Lower extremity cellulitis maintained on antibiotics. 8. Possible non-Q-wave myocardial infarction 9. Coronary artery disease with prior PCI Plan From cardiology's perspective, we agree on maintaining a Lasix drip at 15 mg an hour along with Zaroxolyn, continue to monitor intake and output along with daily weights and daily lytes BUN and creatinine. DNP note has been reviewed, I agree with a documented findings and plan of care. Patient was seen and examined.
[2019-10-31] MEDS ORDERED: Potassium Replacement Protocol 1 EACH MISC MISCELLANE PRN (14:19)
[2019-10-31 15:17] VITALS: BMI 33.8
--- NOTE | 2019-10-31 15:31 | PN ---
PROGRESS NOTE Patient is seen for followup for acute kidney injury, mainly cardiorenal and volume overload. Patient is currently maintained on Lasix drip. Over the weekend he had an improvement in the diuresis. Patient's is weight is down by about 4 kg from yesterday. His 24-hour urine output was 4.4 L and he is negative by 2.2 L over 24 hours. He states he is feeling better. PHYSICAL EXAMINATION: On examination today, blood pressure was 144/71, heart rate 76 per minute. He is afebrile. EXAMINATION OF THE HEART: S1 and S2. EXAMINATION OF LUNGS: Bilateral breath sounds are heard. Decreased breath sounds at bases. ABDOMEN: Soft, non-tender. Examination of lower extremities shows edema bilaterally, 3+. Both extremities are wrapped. [employer] exam is grossly intact. LABS: Labs show sodium 139, potassium 3.2, chloride 99, BUN 77, creatinine 3.19, magnesium 2.1. ASSESSMENT: 1. Acute kidney injury, cardiorenal. Renal function is stable. 2. Chronic kidney disease, stage 4. Baseline creatinine 2.5 to 3 secondary to diabetic kidney disease and cardiorenal syndrome. 3. Volume overload, slowly improving. 4. Cardiomyopathy; ejection fraction 40% to 45%. 5. Congestive heart failure, acute on top of chronic, mainly systolic. 6. [id number] myocardial infarction, status post IV heparin. 7. Hyperphosphatemia associated with renal failure, maintained on PhosLo. 8. Hypokalemia secondary to diuresis, being replaced. PLAN: Maintain Lasix drip. Continue with the Zaroxolyn as well along with fluid restriction and low-salt diet. Repeat labs in a.m. and replace potassium. MMODL / IJN: [id number] /
--- NOTE | 2019-10-31 16:43 | P.PN ---
Subjective Progress Note Date: 10/24/19 This is 69-year-old gentleman with history of CAD, GA, CABG, cardiac catheterization with stents, diabetes mellitus, gastroesophageal reflux disease, hyperlipidemia, hypertension, renal failure and multiple other medical issues, presented to the ER with complaints of sustained a scratch to the right lower extremity 2 weeks ago, worsening redness, blistering with drainage and edema, accompanied by shortness of breath, occasional productive cough with white sputum. Per ER note, patient's family also disclosed patient had been exhibiting mild confusion. Denies nausea vomiting or diarrhea. Denies chest pain, palpitations. EKG reported sinus rhythm, sinus arrhythmia, inferior infarct, age undetermined, troponins 6.13, 6.100 .Denies lightheadedness, dizziness or focal deficits. Afebrile, T-max 99.1 , WBC 22.6, trending down to 16.6, maintaining O2 sats in the 90s on 2 L nasal cannula, creatinine 3.13, blood sugars fairly controlled, 140s to 170s with hemaglobin A1c of 5.7. Lactic acid 1.8. Hemoglobin 10.5. Brain CT reporting no acute infarcts or mass lesions evident, atrophy with paraventricular white matter ischemic changes. Initial Chest x-ray reporting left lower lobe infiltrate and pleural effusion, correlate for CHF or pneumonia. Follow-up chest x-ray reported increasing consolidation of the left representing combination of infiltrate and pleural effusion, right lung demonstrated bibasilar subsegmental consolidation. X-ray of right tibia/fibula reported no acute fracture or dislocation, fairly moderate tricompartment joint space loss in the right knee, moderate to severe diffuse subcutaneous edema and soft tissue swelling. [id number] maintained on Lasix IV push with minimal urine output, minimal improvement in bilateral lower extremity edema. Converted to Lasix drip as per nephrology. Creatinine mildly worsened, up to 3.63 Vital signs stable, maintaining O2 sats in the 90s on 2 L nasal cannula. Afebrile, WBC trending down, 11.6. Denies chest pain, palpitations. 10/27/2019 maintained on both heparin and Lasix drips. Continues to have significant edema. Creatinine remains at 3.6. Maintaining O2 sats in the 90s on 2 L nasal cannula. Hemoglobin 9.9. Hypoglycemic this morning, reports he did not eat his hs snack. Current blood sugar 118. Denies nausea vomiting or diarrhea. Denies abdominal pain. Denies chest pain, palpitations or increased shortness of breath. 10/28/2019 continues on heparin and Lasix drip. Lasix drip increased yesterday. 24-hour I&O reflecting a negative fluid balance, but continues to have significant edema with increased oxygen requirements today . Requiring 3 L nasal cannula to maintain O2 sats in the 90s. Creatinine 3.52. Hypoglycemic this morning. Denies chest pain, palpitations. Ambulating, reports exertional shor tness of breath. 10/31/2019 diuresing well on Lasix drip and Zaroxolyn with 24-hour I&O reflecti ng a negative fluid balance. Potassium down to 3.2. Creatinine slowly trending down to 3.19. Objective - Vital Signs Vital signs: Vital Signs Temp 98 F 10/31/19 16:00 Pulse 95 10/31/19 16:00 Resp 18 10/31/19 16:00 BP 143/65 10/31/19 16:00 Pulse Ox 95 10/31/19 16:00 Intake & Output 10/30/19 10/31/19 10/31/19 18:59 06:59 18:59 Intake Total 557 165 580 Output Total 1630 2375 640 Balance -1073 -2210 -60 Weight 107 kg 107 kg Intake: Intake, IV Titration 77 165 100 Amount Furosemide 100 mg In 77 165 100 Sodium Chloride 0.9% 90 ml @ 15 MG/HR 15 mls/hr IV .Q6H40M [facility] Rx#: [id number] Oral 480 480 Output: Urine 1630 2375 640 Other: Voiding Method Urinal Urinal # Voids 2 1 # Bowel Movements 1 - Exam PHYSICAL EXAM: VITAL SIGNS: As above GENERAL: Sitting up at in bed, no acute distress HEENT: Conjunctivae normal. eyes normal. Oral mucosa moist. NECK: No JVD. No thyroid enlargement. No LNs CARDIOVASCULAR: S1, S2 regular. Systolic murmur, no rubs or gallops RESPIRATION: Breath sounds diminished in the bases. Fine bibasilar crackles. ABDOMEN: Soft, nontender . No guarding. no masses palpable. Bowel sounds heard. LEGS: Bilateral lower extremity edema, chronic venous stasis, Rd wrapped, no calf tenderness PSYCHIATRY: Alert and oriented X3, mood and affect normal. NERVOUS SYSTEM: Cranial N 2-12 grossly normal. Moves all 4 limbs. Diffuse weakness, No focal deficits. Strength and sensation grossly intact. Skin: no rash, warm and dry - Labs CBC & Chem 7: 10/29/19 07:34 10/31/19 05:32 Labs: Abnormal Lab Results - Last 24 Hours (Table) 10/30/19 10/30/19 10/31/19 Range/Units 17:08 20:20 05:32 Potassium 3.2 L (3.5-5.1) mmol/L BUN 77 H (9-20) mg/dL Creatinine 3.19 H (0.66-1.25) mg/dL POC Glucose (mg/dL) 136 H 136 H (75-99) mg/dL 10/31/19 10/31/19 Range/Units 06:42 12:05 Potassium (3.5-5.1) mmol/L BUN (9-20) mg/dL Creatinine (0.66-1.25) mg/dL POC Glucose (mg/dL) 112 H 174 H (75-99) mg/dL Microbiology - Last 24 Hours (Table) 10/24/19 12:10 Blood Culture - Final Blood No Growth after 144 hours Assessment and Plan Assessment: Dyspnea secondary to acute on chronic diastolic CHF, left lower lobe pneumonia, coronavirus not detected. Left lower lobe infiltrate with small bilateral pleural effusions Acute hypoxic respiratory failure secondary to the above Acute NSTEMI, on heparin drip Acute metabolic encephalopathy, multifactorial, secondary to all the above Acute renal failure, prerenal secondary to cardiorenal syndrome Chronic kidney disease, stage IV, baseline 2.5-3 Cellulitis of bilateral lower extremities, right greater than left Leukocytosis CAD, history of GA, CABG, cardiac catheterization with stent Diabetes mellitus, hemoglobin A1c 5.7 Gastroesophageal reflux disease Hypertension Hyperlipidemia Hypokalemia secondary to diuresing Urinary retention being ruled out Morbid obesity, BMI 34.7 Plan: Continue current medication regime , beta blockers, statin, aspirin, nitrates,monitoring and symptomatic treatment. Maintain Fluid restrictions. Diuresing as per nephrology. Patient declining Renal replacement. Potassium replacement as per protocol. Close monitoring of renal function, electrolytes with repeat labs ordered for a.m. Anticoagulation as per cardiology. Prognosis guarded given multiple complex medical issues. The impression and plan of care has been dictated as directed. : I performed a history and examination of this patient, discussed the same with the dictator. I agree with the dictator's note ,documented as a scribe. Any additional findings or plans will be noted.
[2019-10-31 17:01] LABS: Glucose,Whole Blood 222 mg/dL (75-99)
[2019-10-31] MEDS: POTASSIUM CHLORIDE ER 20 MEQ TAB.ER PO SCH ×2 (17:30→18:18)
[2019-10-31 20:02] LABS: Glucose,Whole Blood 241 mg/dL (75-99)
[2019-10-31] MEDS: ATORVASTATIN 20 MG TAB PO SCH (20:42)
[2019-10-31] MEDS: SILVER sulfADIAZINE Cream 400 GM 1 APPLIC APPLIC TOPICAL SCH (20:42)
[2019-11-01] MEDS: FUROSEMIDE 100 MG in SODIUM CHLORIDE 0.9% 90 ML IV SCH ×4 (00:28→22:23)
[2019-11-01 06:39] LABS: Glucose,Whole Blood 152 mg/dL (75-99)
[2019-11-01] MEDS: INSULIN ASPART (NovoLOG) 100 UNIT/ML VIAL SQ SCH ×4 (06:42→20:50)
[2019-11-01] MEDS: carvediloL 12.5 MG TAB PO SCH ×2 (06:42→17:27)
[2019-11-01] MEDS: CALCIUM ACETATE 667 MG TAB PO SCH ×2 (06:42→17:27)
[2019-11-01] MEDS: INSULIN DETEMIR (LEVEMIR) 100 UNIT/ML SYR SQ SCH (06:42)
[2019-11-01] MEDS: FAMOTIDINE 20 MG TAB PO SCH (09:58)
[2019-11-01] MEDS: ASPIRIN 81 MG PO SCH (10:02)
[2019-11-01] MEDS: ISOSORBIDE MONONITRATE ER 60 MG TAB.ER.24H PO SCH (10:02)
[2019-11-01] MEDS: POTASSIUM CHLORIDE ER 10 MEQ TAB.ER.PRT PO SCH ×2 (10:02→20:50)
[2019-11-01] MEDS: CLOPIDOGREL 75 MG TAB PO SCH (10:02)
[2019-11-01] MEDS: hydrALAZINE HCL 50 MG TAB PO SCH ×3 (10:02→20:50)
[2019-11-01] MEDS: allopurinoL 100 MG TAB PO SCH ×2 (10:02→20:50)
[2019-11-01] MEDS: metOLazone 5 MG TAB PO SCH (10:05)
[2019-11-01] MEDS: AZITHROMYCIN 500 MG TAB PO SCH (11:13)
[2019-11-01 11:36] LABS: Potassium 3.2 mmol/L (3.5-5.1)
[2019-11-01 11:52] LABS: Glucose,Whole Blood 152 mg/dL (75-99)
--- NOTE | 2019-11-01 12:39 | P.PN ---
Subjective Progress Note Date: 11/01/19 This is a 69-year-old gentleman with history of diabetes, hypertension, hyperlipidemia, coronary artery disease with prior KS and PCI who presented to the hospital with symptoms of bilateral lower extremity edema and symptoms of shortness of breath which had been going on for several days. He is currently receiving treatment for congestive heart failure, was on IV Lasix and had a very decreased urine output through the night last night. Therefore patient was initiated on IV Lasix drip by nephrology today. Repeat chest x-ray showed increasing consolidation of the left likely representing a combination of infiltrate and pleural effusion. Blood pressure 137/70 with a heart rate in the 60s, 99% on 2 L of oxygen. White blood cell count 11.6, hemoglobin 9.8, platelet count 166. Sodium 141, potassium 4.1, BUN 53, creatinine 3.6. 10/27/2019 Patient seen and examined this morning, still continues to feel quite short of breath, he did have more urine output through the night but still quite minimal. His Lasix drip was increased to 15 mg per hour and Zaroxolyn was added by nephrology. Dr. Orosco also had a lengthy discussion with the patient regarding initiating dialysis. The patient wishes to think about this. Blood pressure 140/80 with a heart rate in the 60s to 70s, 99% on 2 L. White blood cell count 6.9, hemoglobin 9.9, platelet count 156. Sodium 137, potassium 4.3, BUN 61, creatinine 3.6. 10/28/2019 Patient was seen and examined this morning, sitting up at the chair at bedside. Overall he states he is feeling significantly better. He diuresed much more through the night last night as compared with the night prior. His weight is not reflective of this. He put out a little over 2 L and 24 hours. We will maintain a Lasix drip at 15 mg an hour and continue current dose of metolazone. 10/29/2019 Patient seen and examined this morning, continue to put out fairly good urine through the night last night his weight is down 3 kg today, he continues to be on the IV Lasix drip along with the metolazone. Blood pressure 150/60 with a heart rate 80-90, 94% on room air. Potassium 3.9, BUN 75, creatinine 3.4, magnesium 2.3, white blood cell count 5.9, hemoglobin 10.2, and platelet count 176. 10/30/2019 Patient seen and examined this morning, continues to put out urine, over 3 L in the past 24 hours. Weight continues to go down. Blood pressure this morning 177/78 with a heart rate in the 70s, 94% on room air. Sodium 140, potassium 3.4, BUN 73, creatinine 3.4, magnesium 2.1. 10/31/2019 Patient seen and examined this morning, again diuresed well through the night last night. Blood pressure 152/70 with a heart rate in the 70s, 95% on room air. Sodium 139, potassium 3.2, BUN 77, creatinine 3.1, magnesium 2.1. 11/01/2019 Patient seen and examined this morning, weight down 3 kg today. Blood pressure 164/76, 176/80. Heart rate in the 70s. Sodium 137, potassium 3.2, BUN 78, creatinine 3.1. Continues to be on a Lasix drip at 15 mg per hour along with Zaroxolyn. We will repeat a chest x-ray tomorrow. Objective - Vital Signs Vital signs: Vital Signs Temp 98.4 F 11/01/19 03:59 Pulse 76 11/01/19 03:59 Resp 18 11/01/19 03:59 BP 176/81 11/01/19 03:59 Pulse Ox 95 11/01/19 03:59 Intake & Output 10/31/19 11/01/19 11/01/19 18:59 06:59 18:59 Intake Total 908.5 93 340 Output Total 1190 1650 750 Balance -281.5 -1557 -410 Weight 107 kg 104.326 kg Intake: Intake, IV Titration 188.5 93 100 Amount Furosemide 100 mg In 188.5 93 100 Sodium Chloride 0.9% 90 ml @ 15 MG/HR 15 mls/hr IV .Q6H40M [facility] Rx#: [id number] Oral 720 240 Output: Urine 1190 1650 750 Other: Voiding Method Urinal Urinal # Voids 1 - Exam PHYSICAL EXAMINATION: GENERAL: 69-year-old gentleman in no acute distress at the time of my examination HEENT: Head is atraumatic, normocephalic. Pupils equal, round. Sclera anicteric. Conjunctiva are clear. Mucous membranes of the mouth are moist. Neck is supple. There is elevated jugular venous pressure. No carotid bruit is heard. HEART EXAMINATION: Heart S1, S2 normal. No murmur or gallop heard. CHEST EXAMINATION: Lungs reveal improvement in air entry bilaterally ABDOMEN: Soft, nontender. Bowel sounds are heard. No organomegaly noted. EXTREMITIES: 2+ peripheral pulses with 2+ evidence of peripheral edema and no calf tenderness noted. NEUROLOGIC patient is awake, alert and oriented 3 . . - Labs CBC & Chem 7: 10/29/19 07:34 11/01/19 10:40 Labs: Abnormal Lab Results - Last 24 Hours (Table) 10/31/19 10/31/19 11/01/19 Range/Units 16:59 20:01 06:38 Potassium (3.5-5.1) mmol/L Chloride (98-107) mmol/L Carbon Dioxide (22-30) mmol/L BUN (9-20) mg/dL Creatinine (0.66-1.25) mg/dL Glucose (74-99) mg/dL POC Glucose (mg/dL) 222 H 241 H 152 H (75-99) mg/dL 11/01/19 11/01/19 Range/Units 10:40 11:50 Potassium 3.2 L (3.5-5.1) mmol/L Chloride 93 L (98-107) mmol/L Carbon Dioxide 34 H (22-30) mmol/L BUN 78 H (9-20) mg/dL Creatinine 3.11 H (0.66-1.25) mg/dL Glucose 161 H (74-99) mg/dL POC Glucose (mg/dL) 152 H (75-99) mg/dL Assessment and Plan Plan: Assessment and plan: 1. Acute on chronic systolic CHF with ejection fraction of 40-45%. 2. Chronic kidney disease stage IV baseline creatinine 2.5-3 secondary to diabetic kidney disease and cardiorenal syndrome. 3. Volume overload. 4. Acute kidney injury mostly prerenal secondary to cardiorenal syndrome. C reatinine 3.13 on admission. Rule out urinary retention. 5. Insulin-dependent diabetes mellitus. 6. Hypertension with chronic kidney disease. Controlled. 7. Lower extremity cellulitis maintained on antibiotics. 8. Possible non-Q-wave myocardial infarction 9. Coronary artery disease with prior PCI Plan From cardiology's perspective, we agree on maintaining a Susanna mainip at 15 mg an hour along with Zaroxolyn, as per nephrology recommendation, continue to monitor intake and output along with daily weights and daily lytes BUN and creatinine. Repeat chest x-ray tomorrow. DNP note has been reviewed, I agree with a documented findings and plan of care. Patient was seen and examined.
--- NOTE | 2019-11-01 13:28 | PN ---
PROGRESS NOTE Patient is seen for followup for acute kidney injury mainly cardiorenal associated with CHF exacerbation and volume overload. The patient is maintained on Lasix drip along with Zaroxolyn. He has had good urine output. Currently he is using the urinal 24 hour urine output charted at about 4 L. The patient states he is feeling better. Renal function is stable with creatinine staying at about 3.1 mg/dL. Previous creatinine has been at 2.5-2.0 mg/dL in 2019. On examination today, patient is comfortable. Blood pressure was 176/81, heart rate 76 per minute. He is afebrile. Examination of the heart S1, S2. Examination of the lungs: Decreased breath sounds at bases. Abdomen is soft, obese. Exam of lower extremities shows bilateral extremities to be wrapped. [employer]ET[employer] SEPAR[employer] exam grossly intact. Labs show sodium 137, potassium 3.2, chloride 93, CO2 is 34, BUN 78, creatinine 3.1 mg/dL. Calcium was 9.0. ASSESSMENT: 1. Acute kidney injury, cardiorenal syndrome, currently stable. 2. Chronic kidney disease stage IV. Baseline creatinine 2.5-3 secondary to diabetic kidney disease and cardiorenal syndrome. 3. Congestive heart failure, acute on top of chronic, mainly systolic. 4. Cardiomyopathy, ejection fraction 40% to 45%. 5. Non-ST elevation myocardial infarction, status post IV heparin. 6. Hyperphosphatemia associated with renal failure, maintained on PhosLo. 7. Hypokalemia secondary to diuresis, currently being replaced. PLAN: Continue with the Lasix drip and Zaroxolyn. Consider adding dobutamine to help with diuresis given the cardiomyopathy. MMODL / IJN: [id number] /
--- NOTE | 2019-11-01 15:44 | P.PN ---
Subjective Progress Note Date: 11/01/19 This is 69-year-old gentleman with history of CAD, LA, CABG, cardiac catheterization with stents, diabetes mellitus, gastroesophageal reflux disease, hyperlipidemia, hypertension, renal failure and multiple other medical issues, presented to the ER with complaints of sustained a scratch to the right lower extremity 2 weeks ago, worsening redness, blistering with drainage and edema, accompanied by shortness of breath, occasional productive cough with white sputum. Per ER note, patient's family also disclosed patient had been exhibiting mild confusion. Denies nausea vomiting or diarrhea. Denies chest pain, palpitations. EKG reported sinus rhythm, sinus arrhythmia, inferior infarct, age undetermined, troponins 6.13, 6.100 .Denies lightheadedness, dizziness or focal deficits. Afebrile, T-max 99.1 , WBC 22.6, trending down to 16.6, maintaining O2 sats in the 90s on 2 L nasal cannula, creatinine 3.13, blood sugars fairly controlled, 140s to 170s with hemaglobin A1c of 5.7. Lactic acid 1.8. Hemoglobin 10.5. Brain CT reporting no acute infarcts or mass lesions evident, atrophy with paraventricular white matter ischemic changes. Initial Chest x-ray reporting left lower lobe infiltrate and pleural effusion, correlate for CHF or pneumonia. Follow-up chest x-ray reported increasing consolidation of the left representing combination of infiltrate and pleural effusion, right lung demonstrated bibasilar subsegmental consolidation. X-ray of right tibia/fibula reported no acute fracture or dislocation, fairly moderate tricompartment joint space loss in the right knee, moderate to severe diffuse subcutaneous edema and soft tissue swelling. [id number] maintained on Lasix IV push with minimal urine output, minimal improvement in bilateral lower extremity edema. Converted to Lasix drip as per nephrology. Creatinine mildly worsened, up to 3.63 Vital signs stable, maintaining O2 sats in the 90s on 2 L nasal cannula. Afebrile, WBC trending down, 11.6. Denies chest pain, palpitations. 10/27/2019 maintained on both heparin and Lasix drips. Continues to have significant edema. Creatinine remains at 3.6. Maintaining O2 sats in the 90s on 2 L nasal cannula. Hemoglobin 9.9. Hypoglycemic this morning, reports he did not eat his hs snack. Current blood sugar 118. Denies nausea vomiting or diarrhea. Denies abdominal pain. Denies chest pain, palpitations or increased shortness of breath. 10/28/2019 continues on heparin and Lasix drip. Lasix drip increased yesterday. 24-hour I&O reflecting a negative fluid balance, but continues to have significant edema with increased oxygen requirements today . Requiring 3 L nasal cannula to maintain O2 sats in the 90s. Creatinine 3.52. Hypoglycemic this morning. Denies chest pain, palpitations. Ambulating, reports exertional shor tness of breath. 10/31/2019 diuresing well on Lasix drip and Zaroxolyn with 24-hour I&O reflecti ng a negative fluid balance. Potassium down to 3.2. Creatinine slowly trending down to 3.19. 11/01/2019 diuresing well on Lasix drip, weight decreased by nearly 3 kg within 24 hours,. Creatinine slowly improving,3.11. Potassium 3.2. Denies chest pain, palpitations. Objective - Vital Signs Vital signs: Vital Signs Temp 98.1 F 11/01/19 12:00 Pulse 80 11/01/19 15:10 Resp 20 11/01/19 15:10 BP 153/66 11/01/19 12:00 Pulse Ox 93 L 11/01/19 12:00 Intake & Output 10/31/19 11/01/19 11/01/19 18:59 06:59 18:59 Intake Total 908.5 93 580 Output Total 1190 1650 1475 Balance -281.5 -1557 -895 Weight 107 kg 104.326 kg Intake: Intake, IV Titration 188.5 93 100 Amount Furosemide 100 mg In 188.5 93 100 Sodium Chloride 0.9% 90 ml @ 15 MG/HR 15 mls/hr IV .Q6H40M [facility] Rx#: [id number] Oral 720 480 Output: Urine 1190 1650 1475 Other: Voiding Method Urinal Urinal Urinal # Voids 1 3 - Exam PHYSICAL EXAM: VITAL SIGNS: As above GENERAL: Sitting up at side of bed, no acute distress HEENT: Conjunctivae normal. eyes normal. Oral mucosa moist. NECK: No JVD. No thyroid enlargement. No LNs CARDIOVASCULAR: S1, S2 regular. Systolic murmur, no rubs or gallops RESPIRATION: Breath sounds diminished in the bases. Fine bibasilar crackles. ABDOMEN: Soft, nontender . No guarding. no masses palpable. Bowel sounds heard. LEGS: Bilateral lower extremity edema, chronic venous stasis, Rd wrapped, no calf tenderness PSYCHIATRY: Alert and oriented X3, mood and affect normal. NERVOUS SYSTEM: Cranial N 2-12 grossly normal. Moves all 4 limbs. Diffuse weakness, No focal deficits. Strength and sensation grossly intact. Skin: no rash, warm and dry - Labs CBC & Chem 7: 10/29/19 07:34 11/01/19 10:40 Labs: Abnormal Lab Results - Last 24 Hours (Table) 10/31/19 10/31/19 11/01/19 Range/Units 16:59 20:01 06:38 Potassium (3.5-5.1) mmol/L Chloride (98-107) mmol/L Carbon Dioxide (22-30) mmol/L BUN (9-20) mg/dL Creatinine (0.66-1.25) mg/dL Glucose (74-99) mg/dL POC Glucose (mg/dL) 222 H 241 H 152 H (75-99) mg/dL 11/01/19 11/01/19 Range/Units 10:40 11:50 Potassium 3.2 L (3.5-5.1) mmol/L Chloride 93 L (98-107) mmol/L Carbon Dioxide 34 H (22-30) mmol/L BUN 78 H (9-20) mg/dL Creatinine 3.11 H (0.66-1.25) mg/dL Glucose 161 H (74-99) mg/dL POC Glucose (mg/dL) 152 H (75-99) mg/dL Assessment and Plan Assessment: Dyspnea secondary to acute on chronic diastolic CHF, left lower lobe pneumonia, coronavirus not detected. Left lower lobe infiltrate with small bilateral pleural effusions Acute hypoxic respiratory failure secondary to the above Acute NSTEMI, on heparin drip Acute metabolic encephalopathy, multifactorial, secondary to all the above Acute renal failure, prerenal secondary to cardiorenal syndrome Chronic kidney disease, stage IV, baseline 2.5-3 Cellulitis of bilateral lower extremities, right greater than left Leukocytosis CAD, history of LA, CABG, cardiac catheterization with stent Diabetes mellitus, hemoglobin A1c 5.7 Gastroesophageal reflux disease Hypertension Hyperlipidemia Hypokalemia secondary to diuresing Urinary retention being ruled out Morbid obesity, BMI 34.7 Plan: Continue current medication regime , beta blockers, statin, aspirin, nitrates,monitoring and symptomatic treatment. Potassium replacement as ordered. Continue on fluid restrictions with duresing as per nephrology. Patient declining Renal replacement. Close monitoring of renal function, electrolytes with repeat labs ordered for a.m. Prognosis guarded given multiple complex medical issues. The impression and plan of care has been dictated as directed. : I performed a history and examination of this patient, discussed the same with the dictator. I agree with the dictator's note ,documented as a scribe. Any additional findings or plans will be noted.
--- NOTE | 2019-11-01 16:50 | XR ---
EXAMINATION TYPE: XR chest 2V DATE OF EXAM: 11/01/2019 COMPARISON: Prior chest x-ray 10/25/2019 HISTORY: Congestive heart failure, shortness of breath TECHNIQUE: Frontal and lateral views of the chest are obtained. FINDINGS: There is some improved aeration in the upper lobe of the left lung. Central vascularity ap pears less prominent. There may be small pleural effusion on the right. Patient is post median sterno ángel. Heart is likely stable but partially obscured. No evident pneumothorax. Aorta is dense. IMPRESSION: Improved aeration in the left lung. Suspect pleural effusions left greater than right. I mprovement in patient's finding status.
[2019-11-01 17:06] LABS: Glucose,Whole Blood 199 mg/dL (75-99)
[2019-11-01 20:27] LABS: Glucose,Whole Blood 200 mg/dL (75-99)
[2019-11-01] MEDS: ATORVASTATIN 20 MG TAB PO SCH (20:50)
[2019-11-01] MEDS: SILVER sulfADIAZINE Cream 400 GM 1 APPLIC APPLIC TOPICAL SCH (20:51)
[2019-11-02] MEDS: FUROSEMIDE 100 MG in SODIUM CHLORIDE 0.9% 90 ML IV SCH (03:23)
[2019-11-02 04:41] VITALS: RESP 18
[2019-11-02 06:04] LABS: Glucose,Whole Blood 147 mg/dL (75-99)
[2019-11-02] MEDS: CALCIUM ACETATE 667 MG TAB PO SCH (06:27)
[2019-11-02] MEDS: carvediloL 12.5 MG TAB PO SCH (06:27)
[2019-11-02] MEDS: INSULIN DETEMIR (LEVEMIR) 100 UNIT/ML SYR SQ SCH (06:28)
[2019-11-02] MEDS: INSULIN ASPART (NovoLOG) 100 UNIT/ML VIAL SQ SCH ×2 (06:28→12:43)
[2019-11-02 07:19] LABS: Calcium 8.9 mg/dL (8.4-10.2); Potassium 3.1 mmol/L (3.5-5.1)
[2019-11-02 07:54] LABS: Anisocytosis Slight; Basophils # (A) 0.1 k/uL (0-0.2); Basophils % (A) 1 %; Eosinophils # (A) 0.3 k/uL (0-0.7); Eosinophils % (A) 5 %; HCT 32.5 % (39.0-53.0); HGB 10.5 gm/dL (13.0-17.5); Hypochromasia Moderate; Lymphocytes % (A) 14 %; MCH 29.6 pg (25.0-35.0); MCHC 32.2 g/dL (31.0-37.0); Mean Platelet Volume 8.2; Monocytes # (A) 0.4 k/uL (0-1.0); Monocytes % (A) 6 %; Neutrophils # (A) 5.1 k/uL (1.3-7.7); Neutrophils % (A) 73 %; Platelet Count 268 k/uL (150-450); RBC 3.53 m/uL (4.30-5.90); RDW 18.7 % (11.5-15.5); WBC 6.9 k/uL (3.8-10.6)
[2019-11-02] MEDS: FAMOTIDINE 20 MG TAB PO SCH (09:33)
[2019-11-02] MEDS: hydrALAZINE HCL 50 MG TAB PO SCH (09:33)
[2019-11-02] MEDS: allopurinoL 100 MG TAB PO SCH (09:33)
[2019-11-02] MEDS: ASPIRIN 81 MG PO SCH (09:34)
[2019-11-02] MEDS: CLOPIDOGREL 75 MG TAB PO SCH (09:34)
[2019-11-02] MEDS: metOLazone 5 MG TAB PO SCH (09:34)
[2019-11-02] MEDS: POTASSIUM CHLORIDE ER 10 MEQ TAB.ER.PRT PO SCH (09:34)
[2019-11-02] MEDS: ISOSORBIDE MONONITRATE ER 60 MG TAB.ER.24H PO SCH (09:34)
--- NOTE | 2019-11-02 10:46 | P.DS ---
Providers Date of admission: 10/24/19 13:47 Expected date of discharge: 11/02/19 Attending physician: Sahil Carmona Consults: 10/24/19 20:26 Consult Physician Routine Consulting Provider: Mari Deal Consult Reason/Comments: Heart Failure Do you want consulting provider notified?: Yes, Notify in am 10/25/19 06:02 Consult Physician Routine Consulting Provider: Yane Alvarado Consult Reason/Comments: Low urine output, elevated BUN and Creatine Do you want consulting provider notified?: Yes, Notify in am Primary care physician: Sahil Carmona [facility] Course: Final Diagnoses: Acute and chronic systolic CHF with left pleural effusion secondary to heart disease Left lower lobe infiltrate with small bilateral pleural effusions Acute hypoxic respiratory failure secondary to the above Possible Acute NSTEMI, further outpatient recommendations as per cardiology, regarding potential cath. Acute metabolic encephalopathy, multifactorial, secondary to all the above Acute renal failure, prerenal secondary to cardiorenal syndrome Chronic kidney disease, stage IV, baseline 2.5-3 Cellulitis of bilateral lower extremities, right greater than left Leukocytosis CAD, history of VA, CABG, cardiac catheterization with stent Diabetes mellitus, hemoglobin A1c 5.7 Gastroesophageal reflux disease Hypertension Hyperlipidemia Hypokalemia secondary to diuresing Urinary retention being ruled out Morbid obesity, BMI 34.7 Hospital course:This is 69-year-old gentleman with history of CAD, VA, CABG, cardiac catheterization with stents, diabetes mellitus, gastroesophageal reflux disease, hyperlipidemia, hypertension, renal failure and multiple other medical issues, presented to the ER with complaints of sustained a scratch to the right lower extremity 2 weeks ago, worsening redness, blistering with drainage and edema, accompanied by shortness of breath, occasional productive cough with white sputum. Per ER note, patient's family also disclosed patient had been exhibiting mild confusion. Denies nausea vomiting or diarrhea. Denies chest pain, palpitations. EKG reported sinus rhythm, sinus arrhythmia, inferior infarct, age undetermined, troponins 6.13, 6.100 .Denies lightheadedness, dizziness or focal deficits. Afebrile, T-max 99.1 , WBC 22.6, trending down to 16.6, maintaining O2 sats in the 90s on 2 L nasal cannula, creatinine 3.13, blood sugars fairly controlled, 140s to 170s with hemaglobin A1c of 5.7. Lactic acid 1.8. Hemoglobin 10.5. Brain CT reporting no acute infarcts or mass lesions evident, atrophy with paraventricular white matter ischemic changes. Initial Chest x-ray reporting left lower lobe infiltrate and pleural effusion, correlate for CHF or pneumonia. Follow-up chest x-ray reported increasing consolidation of the left representing combination of infiltrate and pleural effusion, right lung demonstrated bibasilar subsegmental consolidation. X-ray of right tibia/fibula reported no acute fracture or dislocation, fairly moderate tricompartment joint space loss in the right knee, moderate to severe diffuse subcutaneous edema and soft tissue swelling. [id number] maintained on Lasix IV push with minimal urine output, minimal improvement in bilateral lower extremity edema. Converted to Lasix drip as per nephrology. Creatinine mildly worsened, up to 3.63 Vital signs stable, maintaining O2 sats in the 90s on 2 L nasal cannula. Afebrile, WBC trending down, 11.6. Denies chest pain, palpitations. 10/27/2019 maintained on both heparin and Lasix drips. Continues to have significant edema. Creatinine remains at 3.6. Maintaining O2 sats in the 90s on 2 L nasal cannula. Hemoglobin 9.9. Hypoglycemic this morning, reports he did not eat his hs snack. Current blood sugar 118. Denies nausea vomiting or diarrhea. Denies abdominal pain. Denies chest pain, palpitations or increased shortness of breath. 10/28/2019 continues on heparin and Lasix drip. Lasix drip increased yesterday. 24-hour I&O reflecting a negative fluid balance, but continues to have significant edema with increased oxygen requirements today . Requiring 3 L nasal cannula to maintain O2 sats in the 90s. Creatinine 3.52. Hypoglycemic this morning. Denies chest pain, palpitations. Ambulating, reports exertional shortness of breath. 10/31/2019 diuresing well on Lasix drip and Zaroxolyn with 24-hour I&O reflecting a negative fluid balance. Potassium down to 3.2. Creatinine slowly trending down to 3.19. 11/01/2019 diuresing well on Lasix drip, weight decreased by nearly 3 kg within 24 hours,. Creatinine slowly improving,3.11. Potassium 3.2. Denies chest pain, palpitations. Significant clinical improvement. Creatinine 3.2. Patient at this time declining hemodialysis. Cleared by nephrology for discharge. Diuretics at discharge as per nephrology. Further recommendations regarding potential outpatient cardiac catheterization as per cardiology. Patient will be discharged home with home care, today in a stable condition with guarded prognosis, pending final DC recommendations and clearance from cardiology. The impression and plan of care has been dictated as directed. : I performed a history and examination of this patient, discussed the same with the dictator. I agree with the dictator's note ,documented as a scribe. Any additional findings or plans will be noted. Patient Condition at Discharge: Stable Plan - Discharge Summary Discharge Rx Participant: No New Discharge Prescriptions: New hydrALAZINE HCL [Apresoline] 50 mg PO TID #90 tab Isosorbide Mononitrate ER [Imdur] 60 mg PO DAILY #30 tab.er.24h Calcium Acetate [PhosLo] 667 mg PO BID-W/MEALS #60 tab guaiFENesin-DM 100-10MG/5ML [Robitussin DM] 10 ml PO Q6H PRN ml PRN Reason: Cough SILVER sulfADIAZINE Cream [Silvadene 1% Cream] 1 applic TOPICAL HS #400 g Continue Famotidine [Pepcid] 20 mg PO DAILY Ergocalciferol (Vitamin D2) [Drisdol] 50,000 unit PO KEATING Aspirin EC [Ecotrin Low Dose] 81 mg PO DAILY Allopurinol [Zyloprim] 100 mg PO BID Atorvastatin [Lipitor] 20 mg PO HS Clopidogrel [Plavix] 75 mg PO DAILY #90 tab Carvedilol [Coreg] 25 mg PO BID Potassium Chloride ER [K-Dur 10] 10 meq PO BID Nitroglycerin Sl Tabs [Nitrostat] 0.4 mg PO Q5M PRN PRN Reason: Chest Pain INSULIN LISPRO (humaLOG) [humaLOG] 10 units SQ BID #0 Changed Insulin Glargine,Hum.rec.anlog [Lantus Solostar] 25 unit SQ DAILY #0 Discontinued hydrALAZINE HCL [Apresoline] 25 mg PO BID No Action Furosemide [Lasix] 80 mg PO DAILY Furosemide [Lasix] 40 mg PO Q48H PRN PRN Reason: Edema Discharge Medication List Allopurinol [Zyloprim] 100 mg PO BID 10/27/13 [History] Aspirin EC [Ecotrin Low Dose] 81 mg PO DAILY 10/27/13 [History] Ergocalciferol (Vitamin D2) [Drisdol] 50,000 unit PO KEATING 10/27/13 [History] Famotidine [Pepcid] 20 mg PO DAILY 10/27/13 [History] Atorvastatin [Lipitor] 20 mg PO HS 12/30/16 [History] Clopidogrel [Plavix] 75 mg PO DAILY #90 tab 07/15/17 [Rx] Carvedilol [Coreg] 25 mg PO BID 07/18/19 [History] Furosemide [Lasix] 80 mg PO DAILY 07/18/19 [History] Nitroglycerin Sl Tabs [Nitrostat] 0.4 mg PO Q5M PRN 07/18/19 [History] Potassium Chloride ER [K-Dur 10] 10 meq PO BID 07/18/19 [History] Furosemide [Lasix] 40 mg PO Q48H PRN 10/24/19 [History] Calcium Acetate [PhosLo] 667 mg PO BID-W/MEALS #60 tab 11/02/19 [Rx] INSULIN LISPRO (humaLOG) [humaLOG] 10 units SQ BID #0 11/02/19 [Rx] Insulin Glargine,Hum.rec.anlog [Lantus Solostar] 25 unit SQ DAILY #0 11/02/19 [Rx] Isosorbide Mononitrate ER [Imdur] 60 mg PO DAILY #30 tab.er.24h 11/02/19 [Rx] SILVER sulfADIAZINE Cream [Silvadene 1% Cream] 1 applic TOPICAL HS #400 g 11/02/19 [Rx] guaiFENesin-DM 100-10MG/5ML [Robitussin DM] 10 ml PO Q6H PRN ml 11/02/19 [Rx] hydrALAZINE HCL [Apresoline] 50 mg PO TID #90 tab 11/02/19 [Rx] Follow up Appointment(s)/Referral(s): Yane Alvarado MD [STAFF PHYSICIAN] - 1 Week Sahil Carmona DO [Primary Care Provider] - 3 Days [facility], [NON-STAFF] - Ambulatory/Diagnostic Orders: Complete Blood Count w/diff [LAB.AMB] Time Frame: 3 Days, Location: None Selected Patient Instructions/Handouts: Heart Failure (DC), Cellulitis (DC), Pneumonia (DC) Activity/Diet/Wound Care/Special Instructions: Lasix/Zaroxolyn as per nephrology.Pending final DC recommendations and clearance from cardiology. Clarification on potential outpatient cardiac cath.- As per cardiology Confirm cardiology follow-up appointment prior to discharge. Discharge Disposition: HOME WITH HOME HEALTH SERVICES
[2019-11-02 11:22] LABS: Glucose,Whole Blood 190 mg/dL (75-99)
--- NOTE | 2019-11-02 11:36 | P.PN ---
Subjective Progress Note Date: 11/02/19 This is a 69-year-old gentleman with history of diabetes, hypertension, hyperlipidemia, coronary artery disease with prior NV and PCI who presented to the hospital with symptoms of bilateral lower extremity edema and symptoms of shortness of breath which had been going on for several days. He is currently receiving treatment for congestive heart failure, was on IV Lasix and had a very decreased urine output through the night last night. Therefore patient was initiated on IV Lasix drip by nephrology today. Repeat chest x-ray showed increasing consolidation of the left likely representing a combination of infiltrate and pleural effusion. Blood pressure 137/70 with a heart rate in the 60s, 99% on 2 L of oxygen. White blood cell count 11.6, hemoglobin 9.8, platelet count 166. Sodium 141, potassium 4.1, BUN 53, creatinine 3.6. 10/27/2019 Patient seen and examined this morning, still continues to feel quite short of breath, he did have more urine output through the night but still quite minimal. His Lasix drip was increased to 15 mg per hour and Zaroxolyn was added by nephrology. Dr. Orosco also had a lengthy discussion with the patient regarding initiating dialysis. The patient wishes to think about this. Blood pressure 140/80 with a heart rate in the 60s to 70s, 99% on 2 L. White blood cell count 6.9, hemoglobin 9.9, platelet count 156. Sodium 137, potassium 4.3, BUN 61, creatinine 3.6. 10/28/2019 Patient was seen and examined this morning, sitting up at the chair at bedside. Overall he states he is feeling significantly better. He diuresed much more through the night last night as compared with the night prior. His weight is not reflective of this. He put out a little over 2 L and 24 hours. We will maintain a Lasix drip at 15 mg an hour and continue current dose of metolazone. 10/29/2019 Patient seen and examined this morning, continue to put out fairly good urine through the night last night his weight is down 3 kg today, he continues to be on the IV Lasix drip along with the metolazone. Blood pressure 150/60 with a heart rate 80-90, 94% on room air. Potassium 3.9, BUN 75, creatinine 3.4, magnesium 2.3, white blood cell count 5.9, hemoglobin 10.2, and platelet count 176. 10/30/2019 Patient seen and examined this morning, continues to put out urine, over 3 L in the past 24 hours. Weight continues to go down. Blood pressure this morning 177/78 with a heart rate in the 70s, 94% on room air. Sodium 140, potassium 3.4, BUN 73, creatinine 3.4, magnesium 2.1. 10/31/2019 Patient seen and examined this morning, again diuresed well through the night last night. Blood pressure 152/70 with a heart rate in the 70s, 95% on room air. Sodium 139, potassium 3.2, BUN 77, creatinine 3.1, magnesium 2.1. 11/01/2019 Patient seen and examined this morning, weight down 3 kg today. Blood pressure 164/76, 176/80. Heart rate in the 70s. Sodium 137, potassium 3.2, BUN 78, creatinine 3.1. Continues to be on a Lasix drip at 15 mg per hour along with Zaroxolyn. We will repeat a chest x-ray tomorrow. 11/02/2019 Patient was seen and examined this morning, feels well, anticipating discharge home today. White blood cell count 6.9, hemoglobin 10.5, platelet count 268. Sodium 138, potassium 3.1, BUN 77, creatinine 3.2. Objective - Vital Signs Vital signs: Vital Signs Temp 97.7 F 11/02/19 08:00 Pulse 71 11/02/19 08:00 Resp 18 11/02/19 08:00 BP 152/70 11/02/19 08:00 Pulse Ox 96 11/02/19 08:00 Intake & Output 11/01/19 11/02/19 11/02/19 18:59 06:59 18:59 Intake Total 1151.75 408.5 240 Output Total 2375 1750 800 Balance -1223.25 -1341.5 -560 Weight 102.4 kg Intake: Intake, IV Titration 191.75 168.5 Amount Furosemide 100 mg In 191.75 168.5 Sodium Chloride 0.9% 90 ml @ 15 MG/HR 15 mls/hr IV .Q6H40M [facility] Rx#: [id number] Oral 960 240 240 Output: Urine 2375 1750 800 Other: Voiding Method Urinal Urinal # Voids 1 1 - Exam PHYSICAL EXAMINATION: GENERAL: 69-year-old gentleman in no acute distress at the time of my examination HEENT: Head is atraumatic, normocephalic. Pupils equal, round. Sclera anicter ic. Conjunctiva are clear. Mucous membranes of the mouth are moist. Neck is supple. There is elevated jugular venous pressure. No carotid bruit is heard. HEART EXAMINATION: Heart S1, S2 normal. No murmur or gallop heard. CHEST EXAMINATION: Lungs reveal improvement in air entry bilaterally ABDOMEN: Soft, nontender. Bowel sounds are heard. No organomegaly noted. EXTREMITIES: 2+ peripheral pulses with 2+ evidence of peripheral edema and no calf tenderness noted. NEUROLOGIC patient is awake, alert and oriented 3 . . - Labs CBC & Chem 7: 11/02/19 06:21 11/02/19 06:21 Labs: Abnormal Lab Results - Last 24 Hours (Table) 11/01/19 11/01/19 11/01/19 Range/Units 10:40 11:50 17:05 RBC (4.30-5.90) m/uL Hgb (13.0-17.5) gm/dL Hct (39.0-53.0) % RDW (11.5-15.5) % Potassium 3.2 L (3.5-5.1) mmol/L Chloride 93 L (98-107) mmol/L Carbon Dioxide 34 H (22-30) mmol/L BUN 78 H (9-20) mg/dL Creatinine 3.11 H (0.66-1.25) mg/dL Glucose 161 H (74-99) mg/dL POC Glucose (mg/dL) 152 H 199 H (75-99) mg/dL 11/01/19 11/02/19 11/02/19 Range/Units 20:25 06:02 06:21 RBC (4.30-5.90) m/uL Hgb (13.0-17.5) gm/dL Hct (39.0-53.0) % RDW (11.5-15.5) % Potassium 3.1 L (3.5-5.1) mmol/L Chloride 94 L (98-107) mmol/L Carbon Dioxide 34 H (22-30) mmol/L BUN 77 H (9-20) mg/dL Creatinine 3.27 H (0.66-1.25) mg/dL Glucose 128 H (74-99) mg/dL POC Glucose (mg/dL) 200 H 147 H (75-99) mg/dL 11/02/19 11/02/19 Range/Units 06:21 11:20 RBC 3.53 L (4.30-5.90) m/uL Hgb 10.5 L (13.0-17.5) gm/dL Hct 32.5 L (39.0-53.0) % RDW 18.7 H (11.5-15.5) % Potassium (3.5-5.1) mmol/L Chloride (98-107) mmol/L Carbon Dioxide (22-30) mmol/L BUN (9-20) mg/dL Creatinine (0.66-1.25) mg/dL Glucose (74-99) mg/dL POC Glucose (mg/dL) 190 H (75-99) mg/dL Assessment and Plan Plan: Assessment and plan: 1. Acute on chronic systolic CHF with ejection fraction of 40-45%. 2. Chronic kidney disease stage IV baseline creatinine 2.5-3 secondary to diabetic kidney disease and cardiorenal syndrome. 3. Volume overload. 4. Acute kidney injury mostly prerenal secondary to cardiorenal syndrome. Creatinine 3.13 on admission. Rule out urinary retention. 5. Insulin-dependent diabetes mellitus. 6. Hypertension with chronic kidney disease. Controlled. 7. Lower extremity cellulitis maintained on antibiotics. 8. Possible non-Q-wave myocardial infarction 9. Coronary artery disease with prior PCI Plan From cardiology's perspective, patient may be discharged home today. Lasix dosing as per nephrology. We'll make him a follow-up appointment in the office with Dr. Wong post discharge. DNP note has been reviewed, I agree with a documented findings and plan of care. Patient was seen and examined.
[2019-11-02 11:58] VITALS: BP 155/73; PULSE 62; TEMP 98.1
--- NOTE | 2019-11-02 13:19 | PN ---
PROGRESS NOTE The patient is seen for followup for acute kidney injury on top of chronic kidney disease and severe volume overload. He has been maintained on Lasix drip. Patient is doing well. He has lost weight. His swelling has improved. There are plans for possible discharge. On examination, blood pressure was 155/73, heart rate 71 per minute. He is afebrile. Examination of the heart S1, S2. Examination of lungs, bilateral breath sounds are heard. Abdomen is soft, nontender, obese. Examination of lower extremities shows edema 3+ bilaterally. Legs are wrapped. NURSE CHARGE RN exam grossly intact. LABS: Show sodium 138, potassium 3.1, chloride 94, CO2 is 34, BUN 77, creatinine 3.27, hemoglobin 10.5 g/dL. ASSESSMENT: 1. Acute kidney injury on top of chronic kidney disease, cardiorenal currently stable. 2. Chronic kidney disease stage 4 secondary to nephrosclerosis and diabetic kidney disease, baseline creatinine 2.5-3. 3. Congestive heart failure, systolic acute on top of chronic. 4. Cardiomyopathy, ejection fraction 40% to 45%. 5. Avn-PM-hafrwdbtx. 6. Hypokalemia secondary to diuresis. PLAN: Patient could be discharged from nephrology standpoint. Switch to oral Lasix 80 mg b.i.d. alternating with daily. Continue with Zaroxolyn and follow up as outpatient in about one week's time. MMODL / IJN: [id number] /
--- NOTE | 2019-11-18 12:22 | ECHOF ---
Referral Reason:CHF MEASUREMENTS -------- HEIGHT: 177.8 cm WEIGHT: 115.7 kg BP: 113/55 RVIDd: 5.0 cm (< 3.3) IVSd: 1.5 cm (0.6 - 1.1) LVIDd: 4.8 cm (3.9 - 5.3) LVPWd: 1.6 cm (0.6 - 1.1) IVSs: 1.7 cm LVIDs: 3.9 cm LVPWs: 1.6 cm LAESV Index (A-L): 33.51 ml/m Ao Diam: 3.1 cm (2.0 - 3.7) AV Cusp: 1.2 cm (1.5 - 2.6) MV EXCURSION: 17.570 mm (> 18.000) MV EF SLOPE: 63 mm/s (70 - 150) EPSS: 1.1 cm MV E Adrian: 1.00 m/s MV DecT: 203 ms MV A Adrian: 0.42 m/s MV E/A Ratio: 2.37 RAP: 20.00 mmHg RVSP: 55.44 mmHg FINDINGS -------- This was a technically difficult study with suboptimal apical views. The left ventricular size is normal. There is moderate concentric left ventricular hypertrophy. T here is moderate global hypokinesis of LV . Overall left ventricular systolic function is moderatel y impaired with, an EF between 35 - 40 %. Mitral Doppler inflow pattern suggests diastolic filling abnormality {E/E'}. The right ventricle is severely enlarged. LA is midly dilated 29-33ml/m2. The right atrium is mildly enlarged. xx ml of Lumason was utilized for enhancement of images. Interatrial and interventricular septum intact. The aortic valve is trileaflet and appears structurally normal. There is mild aortic valve sclerosi s. Trace to mild aortic regurgitation. Mild mitral regurgitation is present. Moderate to severe tricuspid regurgitation present. There is moderate to severe pulmonary hypertens ion. The right ventricular systolic pressure, as measured by Doppler, is 55.44mmHg. Trace/mild (physiologic) pulmonic regurgitation. The aortic root size is normal. The inferior vena cava is dilated with no significant inspiratory collapse which is consistent estima mina right atrial pressure of >20 mmHg. There is no pericardial effusion. CONCLUSIONS -------- 1. This was a technically difficult study with suboptimal apical views. 2. The left ventricular size is normal. 3. There is moderate concentric left ventricular hypertrophy. 4. There is moderate global hypokinesis of LV . 5. Overall left ventricular systolic function is moderately impaired with, an EF between 35 - 40 %. 6. Mitral Doppler inflow pattern suggest diastolic filling abnormality {E/E'}. 7. The right ventricle is severely enlarged. 8. LA is midly dilated 29-33ml/m2. 9. The right atrium is mildly enlarged. 10. xx ml of Lumason was utilized for enhancement of images. 11. Interatrial and interventricular septum intact. 12. The aortic valve is trileaflet and appears structurally normal. 13. There is mild aortic valve sclerosis. 14. Trace to mild aortic regurgitation. 15. Mild mitral regurgitation is present. 16. Moderate to severe tricuspid regurgitation present. 17. There is moderate to severe pulmonary hypertension. 18. The right ventricular systolic pressure, as measured by Doppler, is 55.44mmHg. 19. Trace/mild (physiologic) pulmonic regurgitation. 20. The aortic root size is normal. 21. The inferior vena cava is dilated with no significant inspiratory collapse which is consistent es timated right atrial pressure of >20 mmHg. 22. There is no pericardial effusion. [employer]RB[employer] DESIGN CONSULTANT: Alexus Jung RDCS
== END 2019-11-02 13:24 | disposition home health service (06) | DRG 280 ==
LOC: EC 11:42 → 3SCARD 13:47
PROVIDERS: ADMIT Family Medicine; ATTEND Family Medicine
DX: I13.0 Hypertensive heart and chronic kidney disease with heart failure and stage 1 through stage 4 chronic kidney disease, or unspecified chronic kidney disease (principal); I50.23 Acute on chronic systolic (congestive) heart failure; I21.4 Non-ST elevation (NSTEMI) myocardial infarction; J96.01 Acute respiratory failure with hypoxia; G93.41 Metabolic encephalopathy; L03.115 Cellulitis of right lower limb; L03.116 Cellulitis of left lower limb; N17.9 Acute kidney failure, unspecified; N18.4 Chronic kidney disease, stage 4 (severe); E78.5 Hyperlipidemia, unspecified; E83.39 Other disorders of phosphorus metabolism; E66.01 Morbid (severe) obesity due to excess calories; E11.22 Type 2 diabetes mellitus with diabetic chronic kidney disease; E87.6 Hypokalemia; T50.2X5A Adverse effect of carbonic-anhydrase inhibitors, benzothiadiazides and other diuretics, initial encounter; I42.9 Cardiomyopathy, unspecified; Z20.828 Contact with and (suspected) exposure to other viral communicable diseases; E11.319 Type 2 diabetes mellitus with unspecified diabetic retinopathy without macular edema; E11.649 Type 2 diabetes mellitus with hypoglycemia without coma; I25.10 Atherosclerotic heart disease of native coronary artery without angina pectoris; K21.9 Gastro-esophageal reflux disease without esophagitis; Z96.1 Presence of intraocular lens; Z79.899 Other long term (current) drug therapy; Z79.82 Long term (current) use of aspirin; Z79.4 Long term (current) use of insulin; Z79.02 Long term (current) use of antithrombotics/antiplatelets; I25.2 Old myocardial infarction; Z87.442 Personal history of urinary calculi; Z95.5 Presence of coronary angioplasty implant and graft; Z95.1 Presence of aortocoronary bypass graft; Z83.3 Family history of diabetes mellitus; Z82.49 Family history of ischemic heart disease and other diseases of the circulatory system; Z82.3 Family history of stroke; Z87.01 Personal history of pneumonia (recurrent); Z68.34 Body mass index [BMI] 34.0-34.9, adult
CPT/HCPCS: 36415; 70450; 71045; 71046; 76770; 80048; 80053; 81001; 83036; 83605; 83735; 83880; 84100; 84484; 85025; 85610; 85730; 87040; 93005; 93306; 94760; 96365; 96367; 96375; 99285

== ENCOUNTER → 2019-11-16 | Outpatient (CLI) | payer MEDICARE ==
[2019-11-16 14:29] LABS: Anisocytosis Slight; Basophils # (A) 0.1 k/uL (0-0.2); Basophils % (A) 1 %; Eosinophils # (A) 0.4 k/uL (0-0.7); Eosinophils % (A) 4 %; HCT 36.8 % (39.0-53.0); Hypochromasia Slight; Lymphocytes % (A) 12 %; MCH 27.2 pg (25.0-35.0); MCHC 29.9 g/dL (31.0-37.0); MCV 91.1 fL (80.0-100.0); Mean Platelet Volume 8.2; Monocytes # (A) 0.5 k/uL (0-1.0); Monocytes % (A) 5 %; Neutrophils # (A) 6.9 k/uL (1.3-7.7); Neutrophils % (A) 77 %; Platelet Count 285 k/uL (150-450); RBC 4.03 m/uL (4.30-5.90); RDW 18.1 % (11.5-15.5)
[2019-11-16 14:58] LABS: Appearance,Urine Clear (Clear); Bilirubin,Urine Negative (Negative); Blood,Urine Trace (Negative); Color,Urine Yellow; Glucose,Urine (UA) Negative (Negative); Hyaline Casts,Urine 3 /lpf (0-2); Ketones,Urine Negative (Negative); Leukocyte Esterase,Urine Trace (Negative); Mucus,Urine Rare /hpf; Nitrite,Urine Negative (Negative); Protein,Urine 2+ (Negative); RBC,Urine 11 /hpf (0-5); Specific Gravity,Urine 1.012 (1.001-1.035); Urobilinogen,Urine <2.0 mg/dL (<2.0); WBC,Urine 3 /hpf (0-5)
[2019-11-16 15:19] LABS: Protein/Creatinine Ratio,Urine 2.632
[2019-11-17 01:14] LABS: Ferritin 79.7 ng/mL (22.0-322.0)
[2019-11-17 01:15] LABS: % Iron Saturation 21.43 (15.00-50.00); African American GFR (CKD) 18.2 (60.0-200.0); Albumin 3.8 g/dL (3.80-4.90); Anion Gap 12.9 mmol/L (4.00-12.00); BUN/Creat Ratio 22.97 Ratio (12.00-20.00); Calcium 9.1 mg/dL (8.7-10.3); Carbon Dioxide 31.1 mmol/L (21.6-31.8); Non-African American GFR(CKD) 15.7 (60.0-200.0); Phosphorus 4.5 mg/dL (2.4-5.1); Potassium 3.4 mmol/L (3.5-5.5); Uric Acid 8.1 mg/dL (3.7-8.7)
== END | disposition home or self-care (01) ==
LOC: LABWHC1 12:01
PROVIDERS: ATTEND Internal Medicine Nephrology
DX: N25.81 Secondary hyperparathyroidism of renal origin (principal); M10.9 Gout, unspecified; N39.0 Urinary tract infection, site not specified; R80.9 Proteinuria, unspecified; E55.9 Vitamin D deficiency, unspecified; D63.1 Anemia in chronic kidney disease; N18.3 Chronic kidney disease, stage 3 (moderate)
CPT/HCPCS: 36415; 80048; 81001; 82040; 82306; 82570; 82728; 83540; 83550; 83735; 83970; 84100; 84156; 84550; 85025

== ENCOUNTER → 2019-12-09 | Outpatient (CLI) | payer MEDICARE | END | disposition home or self-care (01) | LOC: LABWHC1 12:17 | PROVIDERS: ATTEND Internal Medicine Nephrology | DX: E87.6 Hypokalemia (principal) | CPT/HCPCS: 36415; 84132 ==

== ENCOUNTER → 2019-12-28 | Outpatient (CLI) | payer MEDICARE ==
[2019-12-28 12:31] LABS: Appearance,Urine Clear (Clear); Bilirubin,Urine Negative (Negative); Blood,Urine Negative (Negative); Color,Urine Light Yellow; Glucose,Urine (UA) Negative (Negative); Hyaline Casts,Urine 1 /lpf (0-2); Ketones,Urine Negative (Negative); Leukocyte Esterase,Urine Negative (Negative); Mucus,Urine Rare /hpf; Nitrite,Urine Negative (Negative); PH, Urine 5.5 (5.0-8.0); Protein,Urine 1+ (Negative); RBC,Urine 2 /hpf (0-5); Urobilinogen,Urine <2.0 mg/dL (<2.0); WBC,Urine 1 /hpf (0-5)
[2019-12-28 12:38] LABS: Anisocytosis Slight; Basophils # (A) 0.1 k/uL (0-0.2); Basophils % (A) 1 %; Eosinophils # (A) 0.3 k/uL (0-0.7); Eosinophils % (A) 3 %; HGB 12.5 gm/dL (13.0-17.5); Lymphocytes # (A) 1.3 k/uL (1.0-4.8); Lymphocytes % (A) 11 %; MCH 28.6 pg (25.0-35.0); MCV 89.3 fL (80.0-100.0); Mean Platelet Volume 8.2; Monocytes # (A) 0.5 k/uL (0-1.0); Monocytes % (A) 4 %; Neutrophils # (A) 9.1 k/uL (1.3-7.7); Neutrophils % (A) 80 %; Platelet Count 237 k/uL (150-450); RBC 4.37 m/uL (4.30-5.90); RDW 18.2 % (11.5-15.5); WBC 11.4 k/uL (3.8-10.6)
[2019-12-28 12:39] LABS: Creatinine,Urine Random 65.6 mg/dL; Protein/Creatinine Ratio,Urine 1.494
[2019-12-28 17:04] LABS: Ferritin 119.4 ng/mL (22.0-322.0)
[2019-12-28 18:00] LABS: % Iron Saturation 28.72 (15.00-50.00); African American GFR (CKD) 15.2 (60.0-200.0); Albumin 4.1 g/dL (3.80-4.90); Anion Gap 13.1 mmol/L (4.00-12.00); BUN/Creat Ratio 25.35 Ratio (12.00-20.00); Carbon Dioxide 28.9 mmol/L (21.6-31.8); Magnesium 1.8 mg/dL (1.5-2.4); Non-African American GFR(CKD) 13.1 (60.0-200.0); Phosphorus 5.5 mg/dL (2.4-5.1); Potassium 4.4 mmol/L (3.5-5.5); Uric Acid 6.3 mg/dL (3.7-8.7)
== END | disposition home or self-care (01) ==
LOC: LABWHC1 10:33
PROVIDERS: ATTEND Nurse Practitioner Family
DX: N18.3 Chronic kidney disease, stage 3 (moderate) (principal); D63.1 Anemia in chronic kidney disease; E55.9 Vitamin D deficiency, unspecified
CPT/HCPCS: 36415; 80048; 81001; 82040; 82306; 82570; 82728; 83540; 83550; 83735; 83970; 84100; 84156; 84550; 85025

== ENCOUNTER → 2020-01-27 | Outpatient (CLI) | payer MEDICARE ==
--- NOTE | 2020-01-27 18:05 | XR ---
EXAMINATION TYPE: XR cervical spine limited DATE OF EXAM: 01/27/2020 TECHNIQUE: Frontal, lateral, and open-mouth views of the cervical spine HISTORY: R52 pain fall Fall backwards in lawn chair. Pain and edema to left scapula with neck pain. COMPARISON: None FINDINGS: The cervical spine is visualized from C1 thru C7 level. Normal alignment without evidence of acute fracture or dislocation. There is disc space narrowing with osteophytosis at C6-C7. The pre- vertebral soft tissue appears within normal limits. The atlantoaxial relationship and base of the den s is within normal limits on the open mouth view. IMPRESSION: No acute fracture or dislocation is seen in the cervical spine.
--- NOTE | 2020-01-27 18:07 | XR ---
EXAMINATION TYPE: XR shoulder limited LT DATE OF EXAM: 01/27/2020 CLINICAL HISTORY: Fall backwards in lawn chair. Pain and edema to left scapula with neck pain. TECHNIQUE: Three views of the left shoulder are obtained. COMPARISON: Chest radiograph 11/01/2019 FINDINGS: There is no acute fracture/dislocation evident in the left shoulder. The acromioclavicula r and glenohumeral joint spaces appear within normal limits. The visualized ribs are intact and unre markable. Incompletely visualized left pleural effusion. IMPRESSION: 1. No acute fracture or dislocation in the left shoulder. 2. Incompletely visualized left pleural effusion.
== END | disposition home or self-care (01) ==
LOC: RADXRMAIN 14:22
PROVIDERS: ATTEND Nurse Practitioner Family
DX: R52 Pain, unspecified (principal)
CPT/HCPCS: 72040

== ENCOUNTER → 2020-05-16 | Outpatient (CLI) | payer MEDICARE ==
[2020-05-16 09:42] LABS: Basophils # (A) 0.1 k/uL (0-0.2); Basophils % (A) 1 %; Eosinophils # (A) 0.4 k/uL (0-0.7); Eosinophils % (A) 4 %; HCT 37.3 % (39.0-53.0); HGB 12.2 gm/dL (13.0-17.5); Lymphocytes # (A) 1.1 k/uL (1.0-4.8); Lymphocytes % (A) 13 %; MCH 30.8 pg (25.0-35.0); MCHC 32.6 g/dL (31.0-37.0); MCV 94.6 fL (80.0-100.0); Mean Platelet Volume 7.6; Monocytes # (A) 0.5 k/uL (0-1.0); Monocytes % (A) 5 %; Neutrophils % (A) 77 %; Platelet Count 221 k/uL (150-450); RBC 3.95 m/uL (4.30-5.90); RDW 14.2 % (11.5-15.5); WBC 9.1 k/uL (3.8-10.6)
[2020-05-16 16:14] LABS: % Iron Saturation 23.81 (15.00-50.00); African American GFR (CKD) 21.6 (60.0-200.0); Anion Gap 12.9 mmol/L (4.00-12.00); BUN/Creat Ratio 16.25 Ratio (12.00-20.00); Calcium 9.4 mg/dL (8.7-10.3); Carbon Dioxide 27.1 mmol/L (21.6-31.8); Chol/HDL Ratio 3.77; LDL Cholesterol,Calculated 58.8 mg/dL (0.0-131.0); Magnesium 2.1 mg/dL (1.5-2.4); Non-African American GFR(CKD) 18.6 (60.0-200.0); Phosphorus 4.6 mg/dL (2.4-5.1); Potassium 4.1 mmol/L (3.5-5.5); VLDL Calculation 24.2 mg/dL (5.00-40.00)
[2020-05-16 16:22] LABS: Ferritin 58.1 ng/mL (22.0-322.0); Prostate Specific Antigen 0.9 ng/mL (0.0-6.5)
[2020-05-16 18:37] LABS: Hemoglobin A1C 8.3 % (4.0-6.0)
[2020-05-16 21:09] LABS: Urine Creatinine 80.6 mg/dL
== END | disposition home or self-care (01) ==
LOC: LABWHC1 08:56
PROVIDERS: ATTEND Family Medicine
DX: E11.65 Type 2 diabetes mellitus with hyperglycemia (principal); E11.22 Type 2 diabetes mellitus with diabetic chronic kidney disease; N40.0 Benign prostatic hyperplasia without lower urinary tract symptoms; N25.81 Secondary hyperparathyroidism of renal origin; N18.4 Chronic kidney disease, stage 4 (severe); D63.1 Anemia in chronic kidney disease; E55.9 Vitamin D deficiency, unspecified
CPT/HCPCS: 36415; 80048; 80061; 82043; 82306; 82570; 82728; 83036; 83540; 83550; 83735; 83970; 84100; 84153; 85025

== ENCOUNTER → 2020-07-25 | Outpatient (CLI) | payer MEDICARE ==
[2020-07-25 14:50] LABS: Basophils # (A) 0.06 X 10*3/uL (0.00-0.10); Basophils % (A) 0.6 %; Eosinophils # (A) 0.39 X 10*3/uL (0.04-0.35); Eosinophils % (A) 3.7 %; HCT 36.7 % (39.6-50.0); HGB 11.8 g/dL (13.0-17.0); Lymphocytes % (A) 11.4 %; MCH 31.1 pg (27.0-32.0); MCHC 32.2 g/dL (32.0-37.0); MCV 96.8 fL (80.0-97.0); Mean Platelet Volume 11.4 fL (9.5-12.2); Monocytes # (A) 0.66 X 10*3/uL (0.20-1.00); Monocytes % (A) 6.3 %; Neutrophils # (A) 8.18 X 10*3/uL (1.80-7.70); Neutrophils % (A) 77.6 %; Platelet Count 279 X 10*3/uL (140-440); RBC 3.79 X 10*6/uL (4.40-5.60); RDW 14.9 % (11.5-14.5); WBC 10.53 X 10*3/uL (4.50-10.00)
[2020-07-25 16:35] LABS: Ferritin 72.5 ng/mL (22.0-322.0)
[2020-07-25 21:50] LABS: % Iron Saturation 24.18 (15.00-50.00); African American GFR (CKD) 21.6 (60.0-200.0); Anion Gap 10.9 mmol/L (4.00-12.00); BUN/Creat Ratio 15.63 Ratio (12.00-20.00); Calcium 8.8 mg/dL (8.7-10.3); Carbon Dioxide 25.1 mmol/L (21.6-31.8); Magnesium 2.2 mg/dL (1.5-2.4); Non-African American GFR(CKD) 18.6 (60.0-200.0); Potassium 3.8 mmol/L (3.5-5.5); Uric Acid 6.4 mg/dL (3.7-8.7)
== END | disposition home or self-care (01) ==
LOC: LABWHC1 09:07
PROVIDERS: ATTEND Nurse Practitioner Family
DX: N25.81 Secondary hyperparathyroidism of renal origin (principal); N18.4 Chronic kidney disease, stage 4 (severe); D63.1 Anemia in chronic kidney disease; M10.9 Gout, unspecified
CPT/HCPCS: 36415; 80048; 82306; 82728; 83540; 83550; 83735; 83970; 84550; 85025

== ENCOUNTER → 2020-10-04 | Outpatient (CLI) | payer MEDICARE ==
[2020-10-04 15:03] LABS: Basophils # (A) 0.08 X 10*3/uL (0.00-0.10); Basophils % (A) 0.7 %; Eosinophils # (A) 0.38 X 10*3/uL (0.04-0.35); Eosinophils % (A) 3.6 %; HCT 39.5 % (39.6-50.0); HGB 12.9 g/dL (13.0-17.0); Lymphocytes # (A) 1.25 X 10*3/uL (0.90-5.00); Lymphocytes % (A) 11.7 %; MCH 31.8 pg (27.0-32.0); MCHC 32.7 g/dL (32.0-37.0); MCV 97.3 fL (80.0-97.0); Mean Platelet Volume 11.5 fL (9.5-12.2); Monocytes # (A) 0.65 X 10*3/uL (0.20-1.00); Monocytes % (A) 6.1 %; Neutrophils # (A) 8.29 X 10*3/uL (1.80-7.70); Neutrophils % (A) 77.4 %; Platelet Count 226 X 10*3/uL (140-440); RBC 4.06 X 10*6/uL (4.40-5.60); RDW 14.9 % (11.5-14.5)
[2020-10-04 17:05] LABS: HIV 2 AB Non-Reactive (Non-Reactive); HIV AB P24 Non-Reactive (Non-Reactive); HIV P24 AG Non-Reactive (Non-Reactive)
[2020-10-04 18:59] LABS: C-Peptide 4.12 ng/mL (0.81-3.85)
[2020-10-05 06:36] LABS: African American GFR (CKD) 20.8 (60.0-200.0); Albumin/Globulin Ratio 1.6 (1.60-3.17); Anion Gap 13.2 mmol/L (4.00-12.00); BUN/Creat Ratio 15.76 Ratio (12.00-20.00); Bilirubin, Conjugated 0.3 mg/dL (0.20-0.40); Bilirubin,Unconjugated 0.5 mg/dL; Carbon Dioxide 22.8 mmol/L (21.6-31.8); Globulin 2.5 g/dL (1.6-3.3); Non-African American GFR(CKD) 17.9 (60.0-200.0); Potassium 4.3 mmol/L (3.5-5.5); Total Bilirubin 0.8 mg/dL (0.3-1.2); Total Protein 6.5 g/dL (6.2-8.2)
[2020-10-05 06:43] LABS: Prostate Specific Antigen 0.9 ng/mL (0.0-6.5)
[2020-10-05 10:16] LABS: Hepatitis B Core IgM Non-Reactive (Non-Reactive); Hepatitis B Surface AB- Quant <3.5 mIU/mL; Hepatitis B Surface Antibody Non-Reactive (Non-Reactive); Hepatitis B Surface Antigen Non-Reactive (Non-Reactive); Hepatitis C IgG Antibody Non-Reactive (Non-Reactive)
== END | disposition home or self-care (01) ==
LOC: LABWHC1 07:55
PROVIDERS: ATTEND Surgery
DX: Z01.83 Encounter for blood typing (principal); Z11.3 Encounter for screening for infections with a predominantly sexual mode of transmission; Z11.4 Encounter for screening for human immunodeficiency virus [HIV]; Z11.59 Encounter for screening for other viral diseases; B25.9 Cytomegaloviral disease, unspecified; B27.90 Infectious mononucleosis, unspecified without complication; B17.10 Acute hepatitis C without hepatic coma; K71.8 Toxic liver disease with other disorders of liver; N41.0 Acute prostatitis; D53.9 Nutritional anemia, unspecified; E11.65 Type 2 diabetes mellitus with hyperglycemia; R68.89 Other general symptoms and signs; E80.7 Disorder of bilirubin metabolism, unspecified
CPT/HCPCS: 36415; 80053; 82248; 82465; 82977; 83036; 83615; 84153; 84681; 85025; 86480; 86644; 86665; 86704; 86705; 86706; 86780; 86803; 86900; 86901; 87340; 87390; 87522

== ENCOUNTER → 2021-01-04 | Outpatient (CLI) | payer MEDICARE ==
[2021-01-04 09:40] LABS: Appearance,Urine Clear (Clear); Bilirubin,Urine Negative (Negative); Blood,Urine Trace (Negative); Color,Urine Light Yellow; Glucose,Urine (UA) 3+ (Negative); Ketones,Urine Negative (Negative); Leukocyte Esterase,Urine Negative (Negative); Nitrite,Urine Negative (Negative); Protein,Urine 2+ (Negative); RBC,Urine 1 /hpf (0-5); Specific Gravity,Urine 1.013 (1.001-1.035); Urobilinogen,Urine <2.0 mg/dL (<2.0); WBC,Urine 1 /hpf (0-5)
[2021-01-04 09:59] LABS: Creatinine,Urine Random 95.5 mg/dL
[2021-01-04 10:10] LABS: Protein/Creatinine Ratio,Urine 4.304
[2021-01-04 18:27] LABS: Eosinophils # (A) 0.42 X 10*3/uL (0.04-0.35); Eosinophils % (A) 4.2 %; HGB 13.1 g/dL (13.0-17.0); Lymphocytes # (A) 1.63 X 10*3/uL (0.90-5.00); Lymphocytes % (A) 16.2 %; MCH 32.3 pg (27.0-32.0); MCHC 32.8 g/dL (32.0-37.0); MCV 98.5 fL (80.0-97.0); Mean Platelet Volume 11.6 fL (9.5-12.2); Monocytes # (A) 0.62 X 10*3/uL (0.20-1.00); Monocytes % (A) 6.2 %; Neutrophils # (A) 7.24 X 10*3/uL (1.80-7.70); Platelet Count 223 X 10*3/uL (140-440); RBC 4.06 X 10*6/uL (4.40-5.60); RDW 14.7 % (11.5-14.5); WBC 10.05 X 10*3/uL (4.50-10.00)
[2021-01-04 22:19] LABS: Hemoglobin A1C 9.3 % (4.0-6.0)
[2021-01-05 17:18] LABS: Ferritin 116.9 ng/mL (22.0-322.0)
[2021-01-05 17:25] LABS: % Iron Saturation 33.46 (15.00-50.00); African American GFR (CKD) 16.5 (60.0-200.0); Albumin 4.3 g/dL (3.80-4.90); Anion Gap 18.1 mmol/L (4.00-12.00); BUN/Creat Ratio 16.5 Ratio (12.00-20.00); Calcium 9.4 mg/dL (8.7-10.3); Carbon Dioxide 21.9 mmol/L (21.6-31.8); Magnesium 1.9 mg/dL (1.5-2.4); Non-African American GFR(CKD) 14.2 (60.0-200.0); Phosphorus 4.7 mg/dL (2.4-5.1); Potassium 4.2 mmol/L (3.5-5.5); Uric Acid 6.7 mg/dL (3.7-8.7)
== END | disposition home or self-care (01) ==
LOC: LABWHC1 08:51
PROVIDERS: ATTEND Family Medicine
DX: E11.65 Type 2 diabetes mellitus with hyperglycemia (principal); E11.22 Type 2 diabetes mellitus with diabetic chronic kidney disease; N18.4 Chronic kidney disease, stage 4 (severe); E55.9 Vitamin D deficiency, unspecified; N25.81 Secondary hyperparathyroidism of renal origin; M10.9 Gout, unspecified; N39.0 Urinary tract infection, site not specified; D64.9 Anemia, unspecified; R80.9 Proteinuria, unspecified
CPT/HCPCS: 36415; 80048; 81001; 82040; 82306; 82570; 82728; 83036; 83540; 83550; 83735; 83970; 84100; 84156; 84550; 85025

== ENCOUNTER → 2021-06-12 | Outpatient (CLI) | payer MEDICARE ==
[2021-06-12 14:42] LABS: Basophils # (A) 0.12 X 10*3/uL (0.00-0.10); HCT 37.8 % (39.6-50.0); HGB 12.5 g/dL (13.0-17.0); Immature Grans, Automated 0.3 %; Lymphocytes # (A) 1.23 X 10*3/uL (0.90-5.00); Lymphocytes % (A) 10.7 %; MCH 32.1 pg (27.0-32.0); MCHC 33.1 g/dL (32.0-37.0); MCV 97.2 fL (80.0-97.0); Mean Platelet Volume 11.3 fL (9.5-12.2); Monocytes # (A) 0.61 X 10*3/uL (0.20-1.00); Monocytes % (A) 5.3 %; NRBC Per 100 WBC 0 /100 WBCS (0.0-0.0); Neutrophils % (A) 75.7 %; Platelet Count 232 X 10*3/uL (140-440); RBC 3.89 X 10*6/uL (4.40-5.60); RDW 14.6 % (11.5-14.5)
[2021-06-12 14:51] LABS: Chol/HDL Ratio 3.81 Ratio; LDL Cholesterol,Calculated 55.8 mg/dL (0.0-131.0)
[2021-06-12 18:06] LABS: Iron 67 ug/dL (65-175); Magnesium 2.3 mg/dL (1.5-2.4)
[2021-06-12 18:15] LABS: % Iron Saturation 23.51 (15.00-50.00); ALT 15 U/L (10-49); AST 14 U/L (14-35); African American GFR (CKD) 16.5 (60.0-200.0); Albumin 3.9 g/dL (3.8-4.9); Alkaline Phosphatase 85 U/L (41-126); BUN/Creat Ratio 11.13 Ratio (12.00-20.00); Blood Urea Nitrogen 44.2 mg/dL (9.0-27.0); Carbon Dioxide 18.9 mmol/L (20.0-27.5); Chloride 104 mmol/L (96-109); Globulin 2.3 g/dL (1.6-3.3); Glucose 233 mg/dL (70-110); Non-African American GFR(CKD) 14.2 (60.0-200.0); Potassium 4.2 mmol/L (3.5-5.5); Sodium 140 mmol/L (135-145); Total Iron Binding Capacity 283 ug/dL (228-460); Total Protein 6.2 g/dL (6.2-8.2)
== END | disposition home or self-care (01) ==
LOC: LABWHC1 09:17
PROVIDERS: ATTEND Nurse Practitioner Family
DX: N18.4 Chronic kidney disease, stage 4 (severe) (principal); D64.9 Anemia, unspecified; N25.81 Secondary hyperparathyroidism of renal origin
CPT/HCPCS: 36415; 80053; 80061; 82728; 83540; 83550; 83735; 83970; 84100; 85025

== ENCOUNTER → 2021-07-26 | Outpatient (CLI) | payer MEDICARE ==
[2021-07-26 16:10] LABS: Appearance,Urine Clear (Clear); Bilirubin,Urine Negative (Negative); Blood,Urine Negative (Negative); Color,Urine Yellow; Glucose,Urine (UA) Negative (Negative); Hyaline Casts,Urine 4 /lpf (0-2); Ketones,Urine Negative (Negative); Leukocyte Esterase,Urine Negative (Negative); Mucus,Urine Rare /hpf; Nitrite,Urine Negative (Negative); PH, Urine 5.5 (5.0-8.0); Protein,Urine 2+ (Negative); RBC,Urine <1 /hpf (0-5); Specific Gravity,Urine 1.012 (1.001-1.035); Squamous Epithelial Cell,Urine <1 /hpf (0-4); Urobilinogen,Urine <2.0 mg/dL (<2.0); WBC,Urine 1 /hpf (0-5)
[2021-07-26 22:22] LABS: Basophils # (A) 0.11 X 10*3/uL (0.00-0.10); Basophils % (A) 1.3 %; Eosinophils # (A) 0.61 X 10*3/uL (0.04-0.35); Eosinophils % (A) 6.9 %; HCT 37.4 % (39.6-50.0); Immature Grans, Automated 0.3 %; Lymphocytes # (A) 1.54 X 10*3/uL (0.90-5.00); Lymphocytes % (A) 17.5 %; MCH 31.3 pg (27.0-32.0); MCHC 32.1 g/dL (32.0-37.0); MCV 97.4 fL (80.0-97.0); Mean Platelet Volume 11.1 fL (9.5-12.2); Monocytes # (A) 0.77 X 10*3/uL (0.20-1.00); Monocytes % (A) 8.8 %; NRBC Per 100 WBC 0 /100 WBCS (0.0-0.0); Neutrophils # (A) 5.73 X 10*3/uL (1.80-7.70); Neutrophils % (A) 65.2 %; Platelet Count 241 X 10*3/uL (140-440); RBC 3.84 X 10*6/uL (4.40-5.60); RDW 14.7 % (11.5-14.5); WBC 8.79 X 10*3/uL (4.50-10.00)
[2021-07-26 22:46] LABS: % Iron Saturation 14.41 (15.00-50.00); African American GFR (CKD) 14.1 (60.0-200.0); Anion Gap 15.6 mmol/L (10.00-18.00); BUN/Creat Ratio 11.37 Ratio (12.00-20.00); Blood Urea Nitrogen 51.4 mg/dL (9.0-27.0); Calcium 9.1 mg/dL (8.7-10.3); Carbon Dioxide 26.1 mmol/L (20.0-27.5); Non-African American GFR(CKD) 12.2 (60.0-200.0); Potassium 3.4 mmol/L (3.5-5.5)
== END | disposition home or self-care (01) ==
LOC: LABWHC1 14:11
PROVIDERS: ATTEND Internal Medicine Nephrology
DX: D64.9 Anemia, unspecified (principal); N39.0 Urinary tract infection, site not specified; N18.4 Chronic kidney disease, stage 4 (severe); R80.9 Proteinuria, unspecified
CPT/HCPCS: 36415; 80048; 81001; 82043; 82570; 82728; 83540; 83550; 85025

== ENCOUNTER → 2022-01-31 | Outpatient (CLI) | payer MEDICARE ==
[2022-01-31 16:01] LABS: Basophils # (A) 0.06 X 10*3/uL (0.00-0.10); Basophils % (A) 0.7 %; Eosinophils # (A) 0.33 X 10*3/uL (0.04-0.35); Eosinophils % (A) 3.6 %; HCT 33.1 % (39.6-50.0); HGB 10.8 g/dL (13.0-17.0); Immature Grans, Automated 0.3 %; Lymphocytes # (A) 0.92 X 10*3/uL (0.90-5.00); Lymphocytes % (A) 10.1 %; MCH 31.8 pg (27.0-32.0); MCHC 32.6 g/dL (32.0-37.0); MCV 97.4 fL (80.0-97.0); Mean Platelet Volume 11.4 fL (9.5-12.2); Monocytes # (A) 0.59 X 10*3/uL (0.20-1.00); Monocytes % (A) 6.5 %; NRBC Per 100 WBC 0 /100 WBCS (0.0-0.0); Neutrophils # (A) 7.17 X 10*3/uL (1.80-7.70); Neutrophils % (A) 78.8 %; Platelet Count 207 X 10*3/uL (140-440); RDW 14.6 % (11.5-14.5)
[2022-01-31 18:20] LABS: Albumin 3.7 g/dL (3.8-4.9); Chol/HDL Ratio 2.92 Ratio; VLDL Calculation 14.78 mg/dL (5.00-40.00)
[2022-01-31 18:29] LABS: % Iron Saturation 24.46 (15.00-50.00); African American GFR (CKD) 14.1 (60.0-200.0); BUN/Creat Ratio 14.42 Ratio (12.00-20.00); Blood Urea Nitrogen 64.9 mg/dL (9.0-27.0); Calcium 8.7 mg/dL (8.7-10.3); Carbon Dioxide 20.2 mmol/L (20.0-27.5); Chloride 107 mmol/L (96-109); Glucose 205 mg/dL (70-110); Iron 64 ug/dL (65-175); Magnesium 2.5 mg/dL (1.5-2.4); Non-African American GFR(CKD) 12.1 (60.0-200.0); Phosphorus 5.4 mg/dL (2.4-5.1); Potassium 4.2 mmol/L (3.5-5.5); Sodium 142 mmol/L (135-145); Total Iron Binding Capacity 260 ug/dL (228-460)
== END | disposition home or self-care (01) ==
LOC: LABWHC1 09:40
PROVIDERS: ATTEND Internal Medicine Nephrology
DX: E55.9 Vitamin D deficiency, unspecified (principal); N18.4 Chronic kidney disease, stage 4 (severe); D63.1 Anemia in chronic kidney disease
CPT/HCPCS: 36415; 80048; 80061; 82040; 82306; 82728; 83540; 83550; 83735; 83970; 84100; 85025

== ENCOUNTER 2022-04-10 18:44 | Inpatient (IN) | payer MEDICARE ==
[2022-04-11] MEDS ORDERED: SODIUM CHLORIDE 0.9% 500 ML 500 ML IV STA (02:24)
[2022-04-11 02:43] LABS: Glucose,Whole Blood 173 mg/dL (70-110)
[2022-04-11 03:10] LABS: Basophils # (A) 0.1 k/uL (0-0.2); Basophils % (A) 1 %; Eosinophils # (A) 0.1 k/uL (0-0.7); Eosinophils % (A) 1 %; HCT 34.4 % (39.0-53.0); HGB 11.6 gm/dL (13.0-17.5); Lymphocytes # (A) 0.2 k/uL (1.0-4.8); Lymphocytes % (A) 3 %; MCH 33.2 pg (25.0-35.0); MCHC 33.8 g/dL (31.0-37.0); MCV 98.1 fL (80.0-100.0); Mean Platelet Volume 8.6; Monocytes # (A) 0.6 k/uL (0-1.0); Monocytes % (A) 9 %; Neutrophils # (A) 5.8 k/uL (1.3-7.7); Neutrophils % (A) 85 %; Platelet Count 192 k/uL (150-450); RDW 14.3 % (11.5-15.5); WBC 6.8 k/uL (3.8-10.6)
--- NOTE | 2022-04-11 03:16 | ED ---
General Adult HPI - General Chief complaint: Dizziness Stated complaint: dizziness Time Seen by Provider: 04/11/22 02:10 Source: family Mode of arrival: wheelchair Limitations: no limitations - History of Present Illness Initial comments: 72-year-old male with past history of coronary artery disease status post bypass, diabetes, congestive heart failure, chronic kidney disease who presents emergency Department with altered mental status and weakness. is at bedside and provides a history. She states that they went out of state on vacation to visit family members. The patient started having a cough on Thursday. They drove home today and throughout the drive the patient became more dizzy, weak and unresponsive. She states that she attempted to get the patient out of the car at one of the rest stops and the patient couldn't even ambulate. He was complaining that he was extremely lightheaded and nauseated. He did have a couple small episodes of emesis. The denies that the patient was around any sick contacts. No recorded fevers. The patient denies any chest pain or shortness of breath. Nonproductive cough. He denies any abdominal pain. No diarrhea. Denies any black or bloody stools. No history of stroke. Denies ataxia. No speech deficits. Patient overly fatigued causing alteration in his mental status. Other alleviating, precipitating or modifying factors - Related Data Home Medications Medication Instructions Recorded Confirmed Aspirin EC [Ecotrin Low Dose] 81 mg PO DAILY 10/27/13 04/22/22 Famotidine [Pepcid] 20 mg PO DAILY 10/27/13 04/22/22 Atorvastatin [Lipitor] 20 mg PO HS 12/30/16 04/22/22 Nitroglycerin Sl Tabs [Nitrostat] 0.4 mg PO Q5M PRN 07/18/19 04/22/22 carvediloL [Coreg] 25 mg PO BID 07/18/19 04/22/22 Ergocalciferol [Vitamin D2 (1250 1,250 mcg PO KEATING 04/11/22 04/22/22 Mcg = 02413 Iu)] Ferrous Sulfate [Feosol] 325 mg PO DAILY 04/11/22 04/22/22 INSULIN LISPRO (humaLOG) [humaLOG] 18 units SQ AC-BRKFST 04/11/22 04/22/22 Insulin Glargine,Hum.rec.anlog 30 unit SQ DAILY 04/11/22 04/22/22 [Lantus Solostar Pen] Insulin Lispro [humaLOG Kwikpen] 10 units SQ AC-BID@1200,1800 04/11/22 04/22/22 Isosorbide Mononitrate [Isosorbide 30 mg PO DAILY 04/11/22 04/22/22 Mononitrate ER] calcitrioL [Calcitriol] 0.25 mcg PO MOTUWETHFR 04/11/22 04/22/22 Furosemide [Lasix] 60 mg PO BID 04/22/22 04/22/22 Previous Rx's Medication Instructions Recorded Clopidogrel [Plavix] 75 mg PO DAILY #90 tab 07/15/17 Calcium Acetate [PhosLo] 667 mg PO TID-W/MEALS #0 tab 04/15/22 Sodium Bicarbonate Tab 650 mg PO TID tab 04/15/22 hydrALAZINE HCL [Apresoline] 100 mg PO TID #180 tab 04/15/22 Allergies Allergy/AdvReac Type Severity Reaction Status Date / Time No Known Allergies Allergy Verified 04/22/22 15:14 Review of Systems ROS Statement: Those systems with pertinent positive or pertinent negative responses have been documented in the HPI. ROS Other: All systems not noted in ROS Statement are negative. Past Medical History Past Medical History: Coronary Artery Disease (CAD), Chest Pain / Angina, Heart Failure, Diabetes Mellitus, Eye Disorder, GERD/Reflux, Hyperlipidemia, Hypertension, Myocardial Infarction ([place]), Pneumonia, Renal Disease Additional Past Medical History / Comment(s): IDDM type II, bilateral diabetic retinopathy, CKD stage III, nephrolithiasis, bronchitis, L pleural effusion, recently received 2 iron infusions for anemia. Last Myocardial Infarction Date:: 2009 History of Any Multi-Drug Resistant Organisms: None Reported Past Surgical History: Coronary Bypass/CABG, Heart Catheterization, Heart Catheterization With Stent Additional Past Surgical History / Comment(s): 2009 CABG 5 vessel, bilateral cataract removals/lens implants, oral surgery Past Anesthesia/Blood Transfusion Reactions: No Reported Reaction, Motion Sickness Date of Last Stent Placement:: 08/05/17 Past Psychological History: No Psychological Hx Reported Smoking Status: Never smoker Past Alcohol Use History: Rare Past Drug Use History: None Reported - Past Family History Mother Family Medical History: CVA/TIA, Diabetes Mellitus Father Family Medical History: CVA/TIA, Myocardial Infarction ([place]) Additional Family Medical History / Comment(s): mother: htn, dm. General Exam Limitations: altered mental status General appearance: lethargic Head exam: Present: atraumatic, normocephalic, normal inspection Eye exam: Present: normal appearance, PERRL, EOMI. Absent: scleral icterus, conjunctival injection, periorbital swelling ENT exam: Present: mucous membranes dry Neck exam: Present: normal inspection. Absent: tenderness, meningismus, lymphadenopathy Respiratory exam: Present: decreased breath sounds Cardiovascular Exam: Present: regular rate, normal rhythm, normal heart sounds. Absent: systolic murmur, diastolic murmur, rubs, gallop, clicks GI/Abdominal exam: Present: soft, normal bowel sounds. Absent: distended, tend erness, guarding, rebound, rigid Extremities exam: Present: normal inspection, full ROM, normal capillary refill. Absent: tenderness, pedal edema, joint swelling, calf tenderness Neurological exam: Present: altered, other (sedated, withdrawn) Psychiatric exam: Present: flat affect Skin exam: Present: diaphoretic Course Vital Signs 04/10/22 04/11/22 04/11/22 19:26 03:00 05:56 Temperature 98.3 F Pulse Rate 85 91 90 Respiratory 18 15 15 Rate Blood Pressure 157/70 146/75 138/67 O2 Sat by Pulse 95 100 100 Oximetry 04/11/22 04/11/22 04/11/22 08:52 10:22 13:00 Temperature 99 F Pulse Rate 93 86 89 Respiratory 18 17 15 Rate Blood Pressure 176/111 176/99 159/91 O2 Sat by Pulse 96 97 97 Oximetry 04/11/22 04/11/22 04/11/22 15:08 16:00 18:06 Temperature Pulse Rate 92 93 93 Respiratory 17 18 17 Rate Blood Pressure 159/91 170/91 170/91 O2 Sat by Pulse 96 97 97 Oximetry EKG Findings - EKG Comments: EKG Findings:: EKG demonstrates a sinus rhythm with a rate of 99. DE interval 221. QRS 133. QTC of 4:30. No acute ST segment elevations or depressions. EKG is interpreted by myself Medical Decision Making - Medical Decision Making Upon arrival the patient was placed into trauma 1. A thorough history and physical exam was performed. IV access is established and the patient was given a 500 bolus of normal saline. Laboratory studies are conducted and reviewed. Creatinine is up to 4.9. Previous was 4.5. BNP 22,600. Troponin of 0.187. Influenza a is positive. CT of the brain demonstrates extensive ischemic white matter changes. Chest x-ray demonstrates a large left-sided pleural effusion. These results are discussed with the patient. Recommended admission for which he was agreeable. I did give him a dose of Tamiflu. He will be admitted for nephrology, cardiology and pulmonology consultation. Originally the patient was started on IV fluids however this is discontinued due to his large pleural effusion. I spoke with Dr. Carmona for the admission - Lab Data Result diagrams: 04/12/22 09:34 04/15/22 09:40 Lab Results 04/11/22 04/11/22 04/11/22 Range/Units 02:32 02:47 02:47 WBC 6.8 (3.8-10.6) k/uL RBC 3.50 L (4.30-5.90) m/uL Hgb 11.6 L (13.0-17.5) gm/dL Hct 34.4 L (39.0-53.0) % MCV 98.1 (80.0-100.0) fL MCH 33.2 (25.0-35.0) pg MCHC 33.8 (31.0-37.0) g/dL RDW 14.3 (11.5-15.5) % Plt Count 192 (150-450) k/uL MPV 8.6 Neutrophils % 85 % Lymphocytes % 3 % Monocytes % 9 % Eosinophils % 1 % Basophils % 1 % Neutrophils # 5.8 (1.3-7.7) k/uL Lymphocytes # 0.2 L (1.0-4.8) k/uL Monocytes # 0.6 (0-1.0) k/uL Eosinophils # 0.1 (0-0.7) k/uL Basophils # 0.1 (0-0.2) k/uL PT 11.2 (9.0-12.0) sec INR 1.1 (<1.2) APTT 22.9 (22.0-30.0) sec Sodium (137-145) mmol/L Potassium (3.5-5.1) mmol/L Chloride (98-107) mmol/L Carbon Dioxide (22-30) mmol/L Anion Gap mmol/L BUN (9-20) mg/dL Creatinine (0.66-1.25) mg/dL Est GFR (CKD-EPI)AfAm (>60 ml/min/1.73 sqM) Est GFR (CKD-EPI)NonAf (>60 ml/min/1.73 sqM) Glucose (74-99) mg/dL POC Glucose (mg/dL) 173 H (70-110) mg/dL POC Glu Metrology Engineer ID Yanet Ro Lactic Ac Sepsis Rflx Plasma Lactic Acid Marcus (0.7-2.0) mmol/L Calcium (8.4-10.2) mg/dL Total Bilirubin (0.2-1.3) mg/dL AST (17-59) U/L ALT (4-49) U/L Alkaline Phosphatase (38-126) U/L Troponin I (0.000-0.034) ng/mL NT-Pro-B Natriuret Pep pg/mL Total Protein (6.3-8.2) g/dL Albumin (3.5-5.0) g/dL Coronavirus (PCR) (Not Detectd) Influenza Type A RNA (Not Detectd) Influenza Type B (PCR) (Not Detectd) 04/11/22 04/11/22 04/11/22 Range/Units 02:47 02:47 02:47 WBC (3.8-10.6) k/uL RBC (4.30-5.90) m/uL Hgb (13.0-17.5) gm/dL Hct (39.0-53.0) % MCV (80.0-100.0) fL MCH (25.0-35.0) pg MCHC (31.0-37.0) g/dL RDW (11.5-15.5) % Plt Count (150-450) k/uL MPV Neutrophils % % Lymphocytes % % Monocytes % % Eosinophils % % Basophils % % Neutrophils # (1.3-7.7) k/uL Lymphocytes # (1.0-4.8) k/uL Monocytes # (0-1.0) k/uL Eosinophils # (0-0.7) k/uL Basophils # (0-0.2) k/uL PT (9.0-12.0) sec INR (<1.2) APTT (22.0-30.0) sec Sodium 144 (137-145) mmol/L Potassium 4.3 (3.5-5.1) mmol/L Chloride 112 H (98-107) mmol/L Carbon Dioxide 18 L (22-30) mmol/L Anion Gap 14 mmol/L BUN 58 H (9-20) mg/dL Creatinine 4.92 H (0.66-1.25) mg/dL Est GFR (CKD-EPI)AfAm 13 (>60 ml/min/1.73 sqM) Est GFR (CKD-EPI)NonAf 11 (>60 ml/min/1.73 sqM) Glucose 167 H (74-99) mg/dL POC Glucose (mg/dL) (70-110) mg/dL POC Glu Metrology Engineer ID Lactic Ac Sepsis Rflx Plasma Lactic Acid Marcus 2.6 H* (0.7-2.0) mmol/L Calcium 8.9 (8.4-10.2) mg/dL Total Bilirubin 0.9 (0.2-1.3) mg/dL AST 22 (17-59) U/L ALT 22 (4-49) U/L Alkaline Phosphatase 75 (38-126) U/L Troponin I 0.187 H* (0.000-0.034) ng/mL NT-Pro-B Natriuret Pep pg/mL Total Protein 6.8 (6.3-8.2) g/dL Albumin 4.0 (3.5-5.0) g/dL Coronavirus (PCR) (Not Detectd) Influenza Type A RNA (Not Detectd) Influenza Type B (PCR) (Not Detectd) 04/11/22 04/11/22 04/11/22 Range/Units 02:47 02:47 02:47 WBC (3.8-10.6) k/uL RBC (4.30-5.90) m/uL Hgb (13.0-17.5) gm/dL Hct (39.0-53.0) % MCV (80.0-100.0) fL MCH (25.0-35.0) pg MCHC (31.0-37.0) g/dL RDW (11.5-15.5) % Plt Count (150-450) k/uL MPV Neutrophils % % Lymphocytes % % Monocytes % % Eosinophils % % Basophils % % Neutrophils # (1.3-7.7) k/uL Lymphocytes # (1.0-4.8) k/uL Monocytes # (0-1.0) k/uL Eosinophils # (0-0.7) k/uL Basophils # (0-0.2) k/uL PT (9.0-12.0) sec INR (<1.2) APTT (22.0-30.0) sec Sodium (137-145) mmol/L Potassium (3.5-5.1) mmol/L Chloride (98-107) mmol/L Carbon Dioxide (22-30) mmol/L Anion Gap mmol/L BUN (9-20) mg/dL Creatinine (0.66-1.25) mg/dL Est GFR (CKD-EPI)AfAm (>60 ml/min/1.73 sqM) Est GFR (CKD-EPI)NonAf (>60 ml/min/1.73 sqM) Glucose (74-99) mg/dL POC Glucose (mg/dL) (70-110) mg/dL POC Glu Metrology Engineer ID Lactic Ac Sepsis Rflx Plasma Lactic Acid Marcus (0.7-2.0) mmol/L Calcium (8.4-10.2) mg/dL Total Bilirubin (0.2-1.3) mg/dL AST (17-59) U/L ALT (4-49) U/L Alkaline Phosphatase (38-126) U/L Troponin I (0.000-0.034) ng/mL NT-Pro-B Natriuret Pep 50583 pg/mL Total Protein (6.3-8.2) g/dL Albumin (3.5-5.0) g/dL Coronavirus (PCR) Not Detected (Not Detectd) Influenza Type A RNA Detected H (Not Detectd) Influenza Type B (PCR) Not Detected (Not Detectd) 04/11/22 Range/Units 04:14 WBC (3.8-10.6) k/uL RBC (4.30-5.90) m/uL Hgb (13.0-17.5) gm/dL Hct (39.0-53.0) % MCV (80.0-100.0) fL MCH (25.0-35.0) pg MCHC (31.0-37.0) g/dL RDW (11.5-15.5) % Plt Count (150-450) k/uL MPV Neutrophils % % Lymphocytes % % Monocytes % % Eosinophils % % Basophils % % Neutrophils # (1.3-7.7) k/uL Lymphocytes # (1.0-4.8) k/uL Monocytes # (0-1.0) k/uL Eosinophils # (0-0.7) k/uL Basophils # (0-0.2) k/uL PT (9.0-12.0) sec INR (<1.2) APTT (22.0-30.0) sec Sodium (137-145) mmol/L Potassium (3.5-5.1) mmol/L Chloride (98-107) mmol/L Carbon Dioxide (22-30) mmol/L Anion Gap mmol/L BUN (9-20) mg/dL Creatinine (0.66-1.25) mg/dL Est GFR (CKD-EPI)AfAm (>60 ml/min/1.73 sqM) Est GFR (CKD-EPI)NonAf (>60 ml/min/1.73 sqM) Glucose (74-99) mg/dL POC Glucose (mg/dL) (70-110) mg/dL POC Glu Metrology Engineer ID Lactic Ac Sepsis Rflx Y Plasma Lactic Acid Marcus (0.7-2.0) mmol/L Calcium (8.4-10.2) mg/dL Total Bilirubin (0.2-1.3) mg/dL AST (17-59) U/L ALT (4-49) U/L Alkaline Phosphatase (38-126) U/L Troponin I (0.000-0.034) ng/mL NT-Pro-B Natriuret Pep pg/mL Total Protein (6.3-8.2) g/dL Albumin (3.5-5.0) g/dL Coronavirus (PCR) (Not Detectd) Influenza Type A RNA (Not Detectd) Influenza Type B (PCR) (Not Detectd) Disposition Clinical Impression: Encephalopathy acute, Influenza A, Nausea and vomiting, Congestive heart failure, Renal failure (ARF), acute on chronic Disposition: ADMITTED IP TO THIS HOSP Condition: Stable Is patient prescribed a controlled substance at d/c from ED?: No Time of Disposition: 05:20 Decision to Admit Reason: Admit from EC Decision Date: 04/11/22 Decision Time: 05:20
[2022-04-11 03:41] LABS: Calcium 8.9 mg/dL (8.4-10.2); Potassium 4.3 mmol/L (3.5-5.1); Total Bilirubin 0.9 mg/dL (0.2-1.3); Total Protein 6.8 g/dL (6.3-8.2)
[2022-04-11 03:46] LABS: INR 1.1 (<1.2); Partial Thromboplastin Time 22.9 sec (22.0-30.0); Prothrombin Time 11.2 sec (9.0-12.0)
[2022-04-11] MEDS ORDERED: SODIUM CHLORIDE 0.9% 1,000 ML IV SCH (04:15)
--- NOTE | 2022-04-11 05:12 | CT ---
EXAMINATION TYPE: CT brain wo con DATE OF EXAM: 04/11/2022 COMPARISON: 10/24/2019 HISTORY: weakness & dizzy CT DLP: 1247.5 mGycm Automated exposure control for dose reduction was used. Exam performed with no contrast. There is diffuse cerebral cortical atrophy. There is extensive hypodensity in the periventricular whi te matter. There is no mass effect or midline shift. No sign of intracranial hemorrhage. Calvarium is intact. There is some mild mucosal thickening in the maxillary sinuses. IMPRESSION: Cerebral atrophy and extensive ischemic white matter changes. No change compared to old exam.
--- NOTE | 2022-04-11 05:14 | XR ---
EXAMINATION TYPE: XR chest 1V portable DATE OF EXAM: 04/11/2022 COMPARISON: 11/01/2019 HISTORY: Cough TECHNIQUE: FINDINGS: Heart is enlarged. There is some diffuse infiltrate in the left lung with blunting left cos tophrenic angle. Right lung shows some mild pulmonary interstitial edema. There are sternal wires. Th ere are chest leads. IMPRESSION: There is left side diffuse pulmonary airspace infiltrate and edema which is worse than ol d exam. There is left pleural effusion without much change. Mild right-sided pulmonary interstitial e sammy. Heart failure is possible.
[2022-04-11] MEDS ORDERED: ONDANSETRON 4 MG/2 ML VIAL IVP STA (05:19)
[2022-04-11] MEDS ORDERED: NALOXONE 0.4 MG/ML 1 ML VIAL IV PRN (05:22)
[2022-04-11] MEDS ORDERED: ACETAMINOPHEN TAB 325 MG TAB PO PRN (05:22)
[2022-04-11 08:06] LABS: Calcium 8.6 mg/dL (8.4-10.2); Magnesium 2.2 mg/dL (1.6-2.3); Potassium 4.4 mmol/L (3.5-5.1)
[2022-04-11] MEDS ORDERED: OSELTAMIVIR 75 MG CAP PO SCH (09:00)
--- NOTE | 2022-04-11 09:21 | US ---
EXAMINATION TYPE: US chest DATE OF EXAM: 04/11/2022 COMPARISON: CLINICAL HISTORY: Left pleural effusion. TECHNIQUE: Targeted ultrasound of the posterior lower left hemithorax EXAM MEASUREMENTS: Left Pleural Effusion pocket size: 3.8 cm Left side NOT marked for possible thoracentesis outside the dept. Pulmonologists are able to review the images in the patient?s EMR. IMPRESSIONS: Small left pleural effusion
[2022-04-11] MEDS ORDERED: FUROSEMIDE 80 MG TAB PO SCH (09:30)
[2022-04-11 09:45] LABS: Appearance,Urine Clear (Clear); Bilirubin,Urine Negative (Negative); Blood,Urine Small (Negative); Color,Urine Yellow; Glucose,Urine (UA) 1+ (Negative); Granular Casts,Urine 3 /lpf (0); Hyaline Casts,Urine 4 /lpf (0-2); Ketones,Urine Negative (Negative); Leukocyte Esterase,Urine Negative (Negative); Mucus,Urine Rare /hpf; Nitrite,Urine Negative (Negative); Protein,Urine 3+ (Negative); RBC,Urine 1 /hpf (0-5); Specific Gravity,Urine 1.015 (1.001-1.035); Urobilinogen,Urine <2.0 mg/dL (<2.0); WBC,Urine 1 /hpf (0-5)
[2022-04-11] MEDS: OSELTAMIVIR 60 MG/10 ML ORAL SYRINGE PO SCH (09:45)
--- NOTE | 2022-04-11 11:50 | P.NPCON ---
History of Present Illness - Reason for Consult acute renal failure, chronic renal failure - History of Present Illness Reason for consultation: Acute kidney injury on chronic kidney disease History of present illness: Patient is a 72-year-old male seen in renal consultation for acute kidney injury on chronic disease. Patient has chronic kidney disease stage V with baseline creatinine in the range of 4-4.5. Creatinine was 4.92 on admission and is 4.7 today. Patient presented to the hospital due to shortness of breath and weakness. Patient tested positive for influenza A. He received 1 L bolus of normal saline. Patient was seen by cardiology and his oral Lasix 80 mg once daily was resumed. Patient is currently resting in bed. He is on 2 L nasal cannula. Blood pressures have been high. Patient has history of systolic CHF with ejection fraction of 35-40% with moderate to severe tricuspid regurgitation and pulmonary hypertension. He has a history of coronary artery disease with multiple cardiac stents. He has long-standing history of diabetes mellitus. He has been voiding. Denies hematuria. Denies use of nonsteroidals. Vital signs are stable. General: Awake, NAD. HEENT: Head exam is unremarkable. On NC. LUNGS: Breath sounds decreased. HEART: Rate and Rhythm are regular. ABDOMEN: Soft, no distension. EXTREMITITES: Trace edema. Past Medical History Past Medical History: Coronary Artery Disease (CAD), Chest Pain / Angina, Heart Failure, Diabetes Mellitus, Eye Disorder, GERD/Reflux, Hyperlipidemia, Hypertension, Myocardial Infarction ([place]), Pneumonia, Renal Disease Additional Past Medical History / Comment(s): IDDM type II, bilateral diabetic retinopathy, CKD stage III, nephrolithiasis, bronchitis, L pleural effusion, recently received 2 iron infusions for anemia. Last Myocardial Infarction Date:: 2009 History of Any Multi-Drug Resistant Organisms: None Reported Past Surgical History: Coronary Bypass/CABG, Heart Catheterization, Heart Catheterization With Stent Additional Past Surgical History / Comment(s): 2009 CABG 5 vessel, bilateral cataract removals/lens implants, oral surgery Past Anesthesia/Blood Transfusion Reactions: No Reported Reaction, Motion Sickness Date of Last Stent Placement:: 08/05/17 Past Psychological History: No Psychological Hx Reported Smoking Status: Never smoker Past Alcohol Use History: Rare Past Drug Use History: None Reported - Past Family History Mother Family Medical History: CVA/TIA, Diabetes Mellitus Father Family Medical History: CVA/TIA, Myocardial Infarction ([place]) Additional Family Medical History / Comment(s): mother: htn, dm. Medications and Allergies Home Medications Medication Instructions Recorded Confirmed Type Aspirin EC [Ecotrin Low Dose] 81 mg PO DAILY 10/27/13 10/24/19 History Ergocalciferol (Vitamin D2) 50,000 unit PO KEATING 10/27/13 10/24/19 History [Drisdol] Famotidine [Pepcid] 20 mg PO DAILY 10/27/13 10/24/19 History allopurinoL [Zyloprim] 100 mg PO BID 10/27/13 10/24/19 History Atorvastatin [Lipitor] 20 mg PO HS 12/30/16 10/24/19 History Clopidogrel [Plavix] 75 mg PO DAILY #90 tab 07/15/17 10/24/19 Rx Nitroglycerin Sl Tabs [Nitrostat] 0.4 mg PO Q5M PRN 07/18/19 10/24/19 History Potassium Chloride ER [K-Dur 10] 10 meq PO BID 07/18/19 10/24/19 History carvediloL [Coreg] 25 mg PO BID 07/18/19 10/24/19 History Calcium Acetate [PhosLo] 667 mg PO BID-W/MEALS #60 tab 11/02/19 Rx Furosemide [Lasix] 80 mg PO BID #1 tablet 11/02/19 Rx Furosemide [Lasix] 80 mg PO DAILY #45 tab 11/02/19 Rx INSULIN LISPRO (humaLOG) [humaLOG] 10 units SQ BID #0 11/02/19 10/24/19 Rx Insulin Glargine,Hum.rec.anlog 25 unit SQ DAILY #0 11/02/19 10/24/19 Rx [Lantus Solostar Pen] Isosorbide Mononitrate ER [Imdur] 60 mg PO DAILY #30 tab.er.24h 11/02/19 Rx SILVER sulfADIAZINE Cream 1 applic TOPICAL HS #400 g 11/02/19 Rx [Silvadene 1% Cream] guaiFENesin-DM 100-10MG/5ML 10 ml PO Q6H PRN ml 11/02/19 Rx [Robitussin DM] hydrALAZINE HCL [Apresoline] 50 mg PO TID #90 tab 11/02/19 Rx metOLazone [Zaroxolyn] 5 mg PO DAILY #30 tab 11/02/19 Rx Allergies Allergy/AdvReac Type Severity Reaction Status Date / Time No Known Allergies Allergy Verified 04/10/22 19:28 Physical Exam Vitals: Vital Signs Temp Pulse Resp BP Pulse Ox 04/11/22 10:22 86 17 176/99 97 04/11/22 08:52 99 F 93 18 176/111 96 04/11/22 05:56 90 15 138/67 100 04/11/22 03:00 91 15 146/75 100 04/10/22 19:26 98.3 F 85 18 157/70 95 Intake and Output 04/10/22 04/11/22 04/11/22 22:59 06:59 14:59 Other: Weight 103.419 kg Results - Lab Results Most recent lab results Calcium 8.6 mg/dL (8.4-10.2) 04/11/22 07:24 Magnesium 2.2 mg/dL (1.6-2.3) 04/11/22 07:24 04/11/22 02:47 04/11/22 07:24 Assessment and Plan Plan: Assessment: 1. CARMEN, mostly prerenal, due to infection. Cr 4.92 on admission - 4.7 today. 2 CKD-5 secondary to diabetic kidney disease and nephrosclerosis. Baseline creatinine 4-4.5. 3. Infuenza A infection. 4. Chronic systolic CHF with EF 35-40%, moderate to severe TR/pulm HTN. 5. CAD s/p cardiac stenting. 7. Mild hypernatremia due to lack of free water intake 8. Metabolic acidosis due to CKD. 9. HTN with CKD. Plan: Start D5W at 50 cc/hr. Lasix resumed by cardiology. Hydralazine and coreg also resume. Add po bicarb. Avoid nephrotoxins. Interested in doing PD in future. Continue to assess need for GEAR CHANGER. Thank you for the consultation. I will continue to follow the patient with you during his hospital stay.
--- NOTE | 2022-04-11 12:45 | P.CRDCN ---
History of Present Illness History of present illness: This is a 72 year old male with a past medical history of coronary artery disease with 6V CABG (AGUILLON-LAD, VG-PDA, VG-OM1, VG-OM2, VG-OM3, VG-D1) in 2009, and PCI to the distal RCA 07/2017 and PCI of OM-3 in 08/2017, ischemic cardiomyopathy with EF 40%, congestive heart failure, hypertension, dyslipidemia, type 2 diabetes, stage V chronic kidney disease. He follows with Dr. Gong. We are consulted to see patient for CHF. He presents to the ER with symptoms of alerted mental status, generalized fatigue, lethargy, cough. Found to be Influenza A positive. He is seen and examined in the emergency department. He is alert and oriented 3, he states his main complaints at home were some lightheadedness and dizziness and shortness of breath. He denies any chest pain, palpitations, symptoms of orthopnea or PND. He denies any loss of consciousness. Overall he states his breathing has improved. DIAGNOSTICS * EKG reveals []. * Telemetry tracings indicate []. * Chest xray []. * Laboratory reviewed, []. * Current home cardiac medications include []. REVIEW OF SYSTEMS At the time of my exam: CONSTITUTIONAL: Denies fever or chills. CARDIOVASCULAR: Denies chest pain, shortness of breath, orthopnea, PND or palpitations. RESPIRATORY: Denies cough. GASTROINTESTINAL: Denies abdominal pain, diarrhea, constipation, nausea or vomiting. MUSCULOSKELETAL: Denies myalgias. NEUROLOGIC: Denies numbness, tingling, headacbe or weakness. ENDOCRINE: Denies fatigue, weight change, polydipsia or polyurina. GENITOURINARY: Denies burning, hematuria or urgency with micturation. HEMATOLOGIC: Denies history of anemia or bleeding. PHYSICAL EXAMINATION Blood pressure [] CONSTITUTIONAL: No apparent distress. HEENT: Head is normocephalic. Pupils are equal, round. Sclerae anicteric. Mucous membranes of the mouth are moist. No JVD. No carotid bruit. CHEST EXAMINATION: Lungs are clear to auscultation. No chest wall tenderness is noted on palpation or with deep breathing. HEART EXAMINATION: Regular rate and rhythm. S1, S2 heard. No murmurs, gallops or rub. ABDOMEN: Soft, nontender. Positive bowel sounds. EXTREMITIES: 2+ peripheral pulses, no lower extremity edema and no calf tenderness. NEUROLOGIC EXAMINATION: Patient is awake, alert and oriented x3. ASSESSMENT Chronic heart failure with mildly reduced ejection fraction 40% Influenza A Altered mental status, improved Acute on chronic kidney disease Stage V chronic kidney disease Coronary artery disease with 6V CABG (AGUILLON-LAD, VG-PDA, VG-OM1, VG-OM2, VG-OM3, VG-D1) in 2009, and PCI to the distal RCA 07/2017 and PCI of OM-3 in 08/2017, Ischemic cardiomyopathy with EF 40% Hypertension Dyslipidemia Type 2 diabetes PLAN Continue home PO Diuretics Nephrology consulted, appreciate recommendations Continue home cardiac medications Supportive care Further recommendations based on clinical course Nurse practitioner note has been reviewed by physician. Signing provider agrees with the documented findings, assessment, and plan of care. Past Medical History Past Medical History: Coronary Artery Disease (CAD), Chest Pain / Angina, Heart Failure, Diabetes Mellitus, Eye Disorder, GERD/Reflux, Hyperlipidemia, Hypertension, Myocardial Infarction ([place]), Pneumonia, Renal Disease Additional Past Medical History / Comment(s): IDDM type II, bilateral diabetic retinopathy, CKD stage III, nephrolithiasis, bronchitis, L pleural effusion, recently received 2 iron infusions for anemia. Last Myocardial Infarction Date:: 2009 History of Any Multi-Drug Resistant Organisms: None Reported Past Surgical History: Coronary Bypass/CABG, Heart Catheterization, Heart Catheterization With Stent Additional Past Surgical History / Comment(s): 2009 CABG 5 vessel, bilateral cataract removals/lens implants, oral surgery Past Anesthesia/Blood Transfusion Reactions: No Reported Reaction, Motion Sickness Date of Last Stent Placement:: 08/05/17 Past Psychological History: No Psychological Hx Reported Smoking Status: Never smoker Past Alcohol Use History: Rare Past Drug Use History: None Reported - Past Family History Mother Family Medical History: CVA/TIA, Diabetes Mellitus Father Family Medical History: CVA/TIA, Myocardial Infarction ([place]) Additional Family Medical History / Comment(s): mother: htn, dm. Medications and Allergies Home Medications Medication Instructions Recorded Confirmed Type Aspirin EC [Ecotrin Low Dose] 81 mg PO DAILY 10/27/13 04/11/22 History Famotidine [Pepcid] 20 mg PO DAILY 10/27/13 04/11/22 History allopurinoL [Zyloprim] 100 mg PO BID 10/27/13 04/11/22 History Atorvastatin [Lipitor] 20 mg PO HS 12/30/16 04/11/22 History Clopidogrel [Plavix] 75 mg PO DAILY #90 tab 07/15/17 04/11/22 Rx Nitroglycerin Sl Tabs [Nitrostat] 0.4 mg PO Q5M PRN 07/18/19 04/11/22 History carvediloL [Coreg] 25 mg PO BID 07/18/19 04/11/22 History Furosemide [Lasix] 80 mg PO BID #1 tablet 11/02/19 04/11/22 Rx hydrALAZINE HCL [Apresoline] 50 mg PO TID #90 tab 11/02/19 04/11/22 Rx Ergocalciferol [Vitamin D2 (1250 1,250 mcg PO KEATING 04/11/22 04/11/22 History Mcg = 58324 Iu)] Ferrous Sulfate [Feosol] 325 mg PO DAILY 04/11/22 04/11/22 History INSULIN LISPRO (humaLOG) [humaLOG] 18 units SQ AC-BRKFST 04/11/22 04/11/22 History Insulin Glargine,Hum.rec.anlog 30 unit SQ DAILY 04/11/22 04/11/22 History [Lantus Solostar Pen] Insulin Lispro [humaLOG Kwikpen] 10 units SQ AC-BID@1200,1800 04/11/22 04/11/22 History Isosorbide Mononitrate [Isosorbide 30 mg PO DAILY 04/11/22 04/11/22 History Mononitrate ER] Potassium Chloride ER [K-Dur 20] 20 meq PO TID 04/11/22 04/11/22 History calcitrioL [Calcitriol] 0.25 mg PO MOTUWETHFR 04/11/22 04/11/22 History lisinopriL [Zestril] 2.5 mg PO DAILY 04/11/22 04/11/22 History metOLazone [Zaroxolyn] 5 mg PO DAILY PRN 04/11/22 History Allergies Allergy/AdvReac Type Severity Reaction Status Date / Time No Known Allergies Allergy Verified 04/10/22 19:28 Physical Exam Vitals: Vital Signs Temp Pulse Resp BP Pulse Ox 04/11/22 05:56 90 15 138/67 100 04/11/22 03:00 91 15 146/75 100 04/10/22 19:26 98.3 F 85 18 157/70 95 Intake and Output 04/10/22 04/11/22 04/11/22 22:59 06:59 14:59 Other: Weight 103.419 kg Results 04/11/22 02:47 04/11/22 07:24 Cardiac Enzymes 04/11/22 04/11/22 Range/Units 02:47 02:47 AST 22 (17-59) U/L Troponin I 0.187 H* (0.000-0.034) ng/mL Coagulation 04/11/22 Range/Units 02:47 PT 11.2 (9.0-12.0) sec APTT 22.9 (22.0-30.0) sec CBC 04/11/22 Range/Units 02:47 WBC 6.8 (3.8-10.6) k/uL RBC 3.50 L (4.30-5.90) m/uL Hgb 11.6 L (13.0-17.5) gm/dL Hct 34.4 L (39.0-53.0) % Plt Count 192 (150-450) k/uL Comprehensive Metabolic Panel 04/11/22 Range/Units 02:47 Sodium 144 (137-145) mmol/L Potassium 4.3 (3.5-5.1) mmol/L Chloride 112 H (98-107) mmol/L Carbon Dioxide 18 L (22-30) mmol/L BUN 58 H (9-20) mg/dL Creatinine 4.92 H (0.66-1.25) mg/dL Glucose 167 H (74-99) mg/dL Calcium 8.9 (8.4-10.2) mg/dL AST 22 (17-59) U/L ALT 22 (4-49) U/L Alkaline Phosphatase 75 (38-126) U/L Total Protein 6.8 (6.3-8.2) g/dL Albumin 4.0 (3.5-5.0) g/dL Current Medications Generic Name Dose Route Start Last Admin Trade Name Freq PRN Reason Stop Dose Admin Acetaminophen 650 mg 04/11/22 05:22 Acetaminophen Tab 325 Mg Tab PO Q6HR PRN Mild Pain or Fever > 100.5 Naloxone HCl 0.2 mg 04/11/22 05:22 Naloxone 0.4 Mg/Ml 1 Ml Vial IV Q2M PRN Opioid Reversal Oseltamivir Phosphate 30 mg 04/11/22 09:00 Oseltamivir 75 Mg Cap PO DAILY [facility] Protocol Intake and Output 04/10/22 04/11/22 04/11/22 22:59 06:59 14:59 Other: Weight 103.419 kg 04/11/22 02:47 04/11/22 02:47
--- NOTE | 2022-04-11 12:50 | P.CRDCN ---
History of Present Illness History of present illness: This is a 72 year old male with a past medical history of coronary artery disease with 6V CABG (AGUILLON-LAD, VG-PDA, VG-OM1, VG-OM2, VG-OM3, VG-D1) in 2009, and PCI to the distal RCA 07/2017 and PCI of OM-3 in 08/2017, ischemic cardiomyopathy with EF 40%, congestive heart failure, hypertension, dyslipidemia, type 2 diabetes, stage V chronic kidney disease. He follows with Dr. Gong. We are consulted to see patient for CHF. He presents to the ER with symptoms of alerted mental status, generalized fatigue, lethargy, cough. Found to be Influenza A positive. He is seen and examined in the emergency department. He is alert and oriented 3, he states his main complaints at home were some lightheadedness and dizziness and shortness of breath. He denies any chest pain, palpitations, symptoms of orthopnea or PND. He denies any loss of consciousness. Overall he states his breathing has improved. DIAGNOSTICS * EKG reveals sinus rhythm with first-degree AV block heart rate 99 * Chest xray diffuse pulmonary infiltrate vs edema * Echocardiogram in the office 12/2021 revealed EF of 40%, mild aortic regurgitation, moderate mitral regurgitation, dilated aorta at 4.0 cm. * Current home cardiac medications include Lasix 80 mg twice a day, lisinopril 2.5 mg daily, Imdur 30 mg daily, carvedilol 25 mg twice a day, atorvastatin 20 mg nightly, Plavix 75 mg daily, aspirin 80 mg daily REVIEW OF SYSTEMS At the time of my exam: CONSTITUTIONAL: Denies fever or chills. CARDIOVASCULAR: Denies chest pain, shortness of breath, orthopnea, PND or palpitations. RESPIRATORY: +cough. GASTROINTESTINAL: Denies abdominal pain, diarrhea, constipation, nausea or vomiting. MUSCULOSKELETAL: Denies myalgias. NEUROLOGIC: +dizziness Denies numbness, tingling, headacbe or weakness. ENDOCRINE: Denies fatigue, weight change, polydipsia or polyurina. GENITOURINARY: Denies burning, hematuria or urgency with micturation. HEMATOLOGIC: Denies history of anemia or bleeding. PHYSICAL EXAMINATION Vitals reviewed CONSTITUTIONAL: No apparent distress. HEENT: Head is normocephalic. Pupils are equal, round. Sclerae anicteric. Mucous membranes of the mouth are moist. No JVD. No carotid bruit. CHEST EXAMINATION: Lungs are diminished bilaterally to auscultation. No chest wall tenderness is noted on palpation or with deep breathing. HEART EXAMINATION: Regular rate and rhythm. S1, S2 heard. Systolic murmur at apex, No gallops or rub. ABDOMEN: Soft, nontender. Positive bowel sounds. EXTREMITIES: 2+ peripheral pulses, moderate bilateral lower extremity edema and no calf tenderness. NEUROLOGIC EXAMINATION: Patient is awake, alert and oriented x3. ASSESSMENT Chronic heart failure with mildly reduced ejection fraction 40% Influenza A Altered mental status, improved Acute on chronic kidney disease Stage V chronic kidney disease Coronary artery disease with 6V CABG (AGUILLON-LAD, VG-PDA, VG-OM1, VG-OM2, VG-OM3, VG-D1) in 2009, and PCI to the distal RCA 07/2017 and PCI of OM-3 in 08/2017, Ischemic cardiomyopathy with EF 40% Hypertension Dyslipidemia Type 2 diabetes PLAN Continue home PO Diuretics Nephrology consulted, appreciate recommendations Continue home cardiac medications Supportive care Further recommendations based on clinical course Nurse practitioner note has been reviewed by physician. Signing provider agrees with the documented findings, assessment, and plan of care. Past Medical History Past Medical History: Coronary Artery Disease (CAD), Chest Pain / Angina, Heart Failure, Diabetes Mellitus, Eye Disorder, GERD/Reflux, Hyperlipidemia, H ypertension, Myocardial Infarction ([place]), Pneumonia, Renal Disease Additional Past Medical History / Comment(s): IDDM type II, bilateral diabetic retinopathy, CKD stage III, nephrolithiasis, bronchitis, L pleural effusion, recently received 2 iron infusions for anemia. Last Myocardial Infarction Date:: 2009 History of Any Multi-Drug Resistant Organisms: None Reported Past Surgical History: Coronary Bypass/CABG, Heart Catheterization, Heart Catheterization With Stent Additional Past Surgical History / Comment(s): 2009 CABG 5 vessel, bilateral cataract removals/lens implants, oral surgery Past Anesthesia/Blood Transfusion Reactions: No Reported Reaction, Motion Sickness Date of Last Stent Placement:: 08/05/17 Past Psychological History: No Psychological Hx Reported Smoking Status: Never smoker Past Alcohol Use History: Rare Past Drug Use History: None Reported - Past Family History Mother Family Medical History: CVA/TIA, Diabetes Mellitus Father Family Medical History: CVA/TIA, Myocardial Infarction ([place]) Additional Family Medical History / Comment(s): mother: htn, dm. Medications and Allergies Home Medications Medication Instructions Recorded Confirmed Type Aspirin EC [Ecotrin Low Dose] 81 mg PO DAILY 10/27/13 04/11/22 History Famotidine [Pepcid] 20 mg PO DAILY 10/27/13 04/11/22 History allopurinoL [Zyloprim] 100 mg PO BID 10/27/13 04/11/22 History Atorvastatin [Lipitor] 20 mg PO HS 12/30/16 04/11/22 History Clopidogrel [Plavix] 75 mg PO DAILY #90 tab 07/15/17 04/11/22 Rx Nitroglycerin Sl Tabs [Nitrostat] 0.4 mg PO Q5M PRN 07/18/19 04/11/22 History carvediloL [Coreg] 25 mg PO BID 07/18/19 04/11/22 History Furosemide [Lasix] 80 mg PO BID #1 tablet 11/02/19 04/11/22 Rx hydrALAZINE HCL [Apresoline] 50 mg PO TID #90 tab 11/02/19 04/11/22 Rx Ergocalciferol [Vitamin D2 (1250 1,250 mcg PO KEATING 04/11/22 04/11/22 History Mcg = 26460 Iu)] Ferrous Sulfate [Feosol] 325 mg PO DAILY 04/11/22 04/11/22 History INSULIN LISPRO (humaLOG) [humaLOG] 18 units SQ AC-BRKFST 04/11/22 04/11/22 History Insulin Glargine,Hum.rec.anlog 30 unit SQ DAILY 04/11/22 04/11/22 History [Lantus Solostar Pen] Insulin Lispro [humaLOG Kwikpen] 10 units SQ AC-BID@1200,1800 04/11/22 04/11/22 History Isosorbide Mononitrate [Isosorbide 30 mg PO DAILY 04/11/22 04/11/22 History Mononitrate ER] Potassium Chloride ER [K-Dur 20] 20 meq PO TID 04/11/22 04/11/22 History calcitrioL [Calcitriol] 0.25 mg PO MOTUWETHFR 04/11/22 04/11/22 History lisinopriL [Zestril] 2.5 mg PO DAILY 04/11/22 04/11/22 History metOLazone [Zaroxolyn] 5 mg PO DAILY PRN 04/11/22 History Allergies Allergy/AdvReac Type Severity Reaction Status Date / Time No Known Allergies Allergy Verified 04/10/22 19:28 Physical Exam Vitals: Vital Signs Temp Pulse Resp BP Pulse Ox 04/11/22 10:22 86 17 176/99 97 04/11/22 08:52 99 F 93 18 176/111 96 04/11/22 05:56 90 15 138/67 100 04/11/22 03:00 91 15 146/75 100 04/10/22 19:26 98.3 F 85 18 157/70 95 Intake and Output 04/10/22 04/11/22 04/11/22 22:59 06:59 14:59 Other: Weight 103.419 kg Results 04/11/22 02:47 04/11/22 07:24 Cardiac Enzymes 04/11/22 04/11/22 Range/Units 02:47 02:47 AST 22 (17-59) U/L Troponin I 0.187 H* (0.000-0.034) ng/mL Coagulation 04/11/22 Range/Units 02:47 PT 11.2 (9.0-12.0) sec APTT 22.9 (22.0-30.0) sec CBC 04/11/22 Range/Units 02:47 WBC 6.8 (3.8-10.6) k/uL RBC 3.50 L (4.30-5.90) m/uL Hgb 11.6 L (13.0-17.5) gm/dL Hct 34.4 L (39.0-53.0) % Plt Count 192 (150-450) k/uL Comprehensive Metabolic Panel 04/11/22 04/11/22 Range/Units 02:47 07:24 Sodium 144 146 H (137-145) mmol/L Potassium 4.3 4.4 (3.5-5.1) mmol/L Chloride 112 H 115 H (98-107) mmol/L Carbon Dioxide 18 L 17 L (22-30) mmol/L BUN 58 H 59 H (9-20) mg/dL Creatinine 4.92 H 4.70 H (0.66-1.25) mg/dL Glucose 167 H 144 H (74-99) mg/dL Calcium 8.9 8.6 (8.4-10.2) mg/dL AST 22 (17-59) U/L ALT 22 (4-49) U/L Alkaline Phosphatase 75 (38-126) U/L Total Protein 6.8 (6.3-8.2) g/dL Albumin 4.0 (3.5-5.0) g/dL Current Medications Generic Name Dose Route Start Last Admin Trade Name Freq PRN Reason Stop Dose Admin Acetaminophen 650 mg 04/11/22 05:22 Acetaminophen Tab 325 Mg Tab PO Q6HR PRN Mild Pain or Fever > 100.5 Aspirin 81 mg 04/12/22 09:00 Aspirin 81 Mg PO DAILY [facility] Atorvastatin Calcium 20 mg 04/11/22 21:00 Atorvastatin 20 Mg Tab PO HS [facility] Carvedilol 25 mg 04/11/22 17:30 Carvedilol 12.5 Mg Tab PO BID-W/MEALS [facility] Clopidogrel Bisulfate 75 mg 04/12/22 09:00 Clopidogrel 75 Mg Tab PO DAILY [facility] Furosemide 80 mg 04/11/22 09:30 04/11/22 10:24 Furosemide 80 Mg Tab PO 80 mg DAILY [facility] Administration Hydralazine HCl 50 mg 04/11/22 16:00 Hydralazine Hcl 50 Mg Tab PO TID [facility] Dextrose/Water 1,000 mls @ 50 mls/hr 04/11/22 12:00 Dextrose 5%-Water Iv Soln IV .Q20H [facility] Isosorbide Mononitrate 30 mg 04/12/22 09:00 Isosorbide Mononitrate Er 30 Mg Tab.Er.24h PO DAILY [facility] Naloxone HCl 0.2 mg 04/11/22 05:22 Naloxone 0.4 Mg/Ml 1 Ml Vial IV Q2M PRN Opioid Reversal Oseltamivir Phosphate 30 mg 04/11/22 09:30 04/11/22 09:45 Oseltamivir 60 Mg/10 Ml Oral Syringe PO 04/15/22 09:01 30 mg DAILY [facility] Administration Protocol Sodium Bicarbonate 650 mg 04/11/22 12:00 Sodium Bicarbonate Tab 650 Mg Tab PO TID [facility] Intake and Output 04/10/22 04/11/22 04/11/22 22:59 06:59 14:59 Other: Weight 103.419 kg 04/11/22 02:47 04/11/22 07:24
[2022-04-11] MEDS: DEXTROSE 5% IN WATER 1,000 ML IV SCH (13:49)
[2022-04-11] MEDS: SODIUM BICARBONATE TAB 650 MG TAB PO SCH ×3 (13:49→20:14)
--- NOTE | 2022-04-11 14:26 | P.CNPUL ---
History of Present Illness Consult date: 04/11/22 Requesting physician: Sahil Carmona Reason for consult: abnormal CXR/CT Chief complaint: Dizziness, weakness, lethargy History of present illness: This is a pleasant 72-year-old male patient with a known history of coronary artery disease with previous bypass surgery x 5, previous stent placement, diabetes mellitus, congestive heart failure, chronic kidney disease, hypertension, hyperlipidemia, diabetic retinopathy, nonsmoker. He had been recently traveling out of state to visit family and on the way back he started having issues with dizziness weakness and lethargy. His had tried to get him out of the car at a rest stop and he couldn't even ambulate. He was extremely dizzy, lightheaded and nauseated. Denied any sick contacts. Computed tomography scan of the brain revealed cerebral atrophy and extensive ischemic white matter changes. No change compared to previous. No acute processes. EKG revealed sinus mechanism. chest x-ray revealed a left-sided diffuse pulmonary airspace infiltrate and edema. Some chronic left pleural effusion. Mild right- sided pulmonary interstitial edema. We were consulted for the same. He is seen today in the emergency department. He is currently awake and alert. He remains dizzy. He is maintaining O2 saturations in the upper 90s on 2 L/m per nasal cannula. Afebrile. Somewhat hypertensive. White count 6.8. Hemoglobin 11.6. Platelets 192. Sodium 146. Potassium 4.4. Chloride 113. Bicarb 17. BUN 59. Creatinine 4.70. proBNP 23,600. Troponin 0.187. Negative for keith virus. Positive for influenza A. He had been initiated on D5W at 50 MLS per hour. Started on Tamiflu. Review of Systems REVIEW OF SYSTEMS: CONSTITUTIONAL: Positive for dizziness, lightheadedness, weakness. Denies any recent significant weight loss or weight gain. EYES: Denies change in vision. EARS, NOSE, MOUTH, THROAT: Denies headaches, denies sore throat. CARDIOVASCULAR: Denies chest pain, palpitations or syncopal episodes. RESPIRATORY: Denies shortness of breath, cough, congestion or hemoptysis. GASTROINTESTINAL: Positive for nausea, vomiting GENITOURINARY: Denies hematuria, denies infections. MUSKULOSKELETAL: Denies pain, denies swelling. INTEGUMENTARY: Denies rash, denies eczema. NEUROLOGICAL: Denies recent memory loss, no recent seizure activity. PSYCHIATRIC: Denies anxiety, denies depression. HEMATOLOGIC/LYMPHATIC: Denies anemia, denies enlarged lymph nodes. Past Medical History Past Medical History: Coronary Artery Disease (CAD), Chest Pain / Angina, Heart Failure, Diabetes Mellitus, Eye Disorder, GERD/Reflux, Hyperlipidemia, Hypertension, Myocardial Infarction (CT), Pneumonia, Renal Disease Additional Past Medical History / Comment(s): IDDM type II, bilateral diabetic retinopathy, CKD stage III, nephrolithiasis, bronchitis, L pleural effusion, recently received 2 iron infusions for anemia. Last Myocardial Infarction Date:: 2009 History of Any Multi-Drug Resistant Organisms: None Reported Past Surgical History: Coronary Bypass/CABG, Heart Catheterization, Heart Catheterization With Stent Additional Past Surgical History / Comment(s): 2009 CABG 5 vessel, bilateral cataract removals/lens implants, oral surgery Past Anesthesia/Blood Transfusion Reactions: No Reported Reaction, Motion Sickness Date of Last Stent Placement:: 08/05/17 Past Psychological History: No Psychological Hx Reported Smoking Status: Never smoker Past Alcohol Use History: Rare Past Drug Use History: None Reported - Past Family History Mother Family Medical History: CVA/TIA, Diabetes Mellitus Father Family Medical History: CVA/TIA, Myocardial Infarction ([place]) Additional Family Medical History / Comment(s): mother: htn, dm. Medications and Allergies Home Medications Medication Instructions Recorded Confirmed Type Aspirin EC [Ecotrin Low Dose] 81 mg PO DAILY 10/27/13 04/11/22 History Famotidine [Pepcid] 20 mg PO DAILY 10/27/13 04/11/22 History allopurinoL [Zyloprim] 100 mg PO BID 10/27/13 04/11/22 History Atorvastatin [Lipitor] 20 mg PO HS 12/30/16 04/11/22 History Clopidogrel [Plavix] 75 mg PO DAILY #90 tab 07/15/17 04/11/22 Rx Nitroglycerin Sl Tabs [Nitrostat] 0.4 mg PO Q5M PRN 07/18/19 04/11/22 History carvediloL [Coreg] 25 mg PO BID 07/18/19 04/11/22 History Furosemide [Lasix] 80 mg PO BID #1 tablet 11/02/19 04/11/22 Rx hydrALAZINE HCL [Apresoline] 50 mg PO TID #90 tab 11/02/19 04/11/22 Rx Ergocalciferol [Vitamin D2 (1250 1,250 mcg PO KEATING 04/11/22 04/11/22 History Mcg = 76976 Iu)] Ferrous Sulfate [Feosol] 325 mg PO DAILY 04/11/22 04/11/22 History INSULIN LISPRO (humaLOG) [humaLOG] 18 units SQ AC-BRKFST 04/11/22 04/11/22 History Insulin Glargine,Hum.rec.anlog 30 unit SQ DAILY 04/11/22 04/11/22 History [Lantus Solostar Pen] Insulin Lispro [humaLOG Kwikpen] 10 units SQ AC-BID@1200,1800 04/11/22 04/11/22 History Isosorbide Mononitrate [Isosorbide 30 mg PO DAILY 04/11/22 04/11/22 History Mononitrate ER] Potassium Chloride ER [K-Dur 20] 20 meq PO TID 04/11/22 04/11/22 History calcitrioL [Calcitriol] 0.25 mg PO MOTUWETHFR 04/11/22 04/11/22 History lisinopriL [Zestril] 2.5 mg PO DAILY 04/11/22 04/11/22 History metOLazone [Zaroxolyn] 5 mg PO DAILY PRN 04/11/22 History Allergies Allergy/AdvReac Type Severity Reaction Status Date / Time No Known Allergies Allergy Verified 04/10/22 19:28 Physical Exam Vitals: Vital Signs Temp Pulse Resp BP Pulse Ox 04/11/22 13:00 89 15 159/91 97 04/11/22 10:22 86 17 176/99 97 04/11/22 08:52 99 F 93 18 176/111 96 04/11/22 05:56 90 15 138/67 100 04/11/22 03:00 91 15 146/75 100 04/10/22 19:26 98.3 F 85 18 157/70 95 Intake and Output 04/10/22 04/11/22 04/11/22 22:59 06:59 14:59 Other: Weight 103.419 kg GENERAL EXAM: Alert, weak 72-year-old male, on 2 L nasal cannula, comfortable in no apparent distress. HEAD: Normocephalic. EYES: Normal reaction of pupils, equal size. NOSE: Clear with pink turbinates. THROAT: No erythema or exudates. NECK: No masses, no JVD. CHEST: No chest wall deformity. LUNGS: Equal air entry with crackles in the bases. CVS: S1 and S2 normal with no audible murmur, regular rhythm. ABDOMEN: No hepatosplenomegaly, normal bowel sounds, no guarding or rigidity. SPINE: No scoliosis or deformity SKIN: No rashes CENTRAL NERVOUS SYSTEM: No focal deficits, tone is normal in all 4 extremities. EXTREMITIES: Changes of chronic venous stasis of lower extremities. There is 1- 2+ peripheral edema. Peripheral pulses are intact. Results - Laboratory Findings CBC and BMP: 04/11/22 02:47 04/11/22 07:24 PT/INR, D-dimer PT 11.2 sec (9.0-12.0) 04/11/22 02:47 INR 1.1 (<1.2) 04/11/22 02:47 Abnormal lab findings: Abnormal Labs 04/11/22 04/11/22 04/11/22 02:32 02:47 02:47 RBC 3.50 L Hgb 11.6 L Hct 34.4 L Lymphocytes # 0.2 L Sodium Chloride 112 H Carbon Dioxide 18 L BUN 58 H Creatinine 4.92 H Glucose 167 H POC Glucose (mg/dL) 173 H Plasma Lactic Acid Marcus Troponin I Urine Protein Urine Glucose (UA) Urine Blood Hyaline Casts Urine Mucus Influenza Type A RNA 04/11/22 04/11/22 04/11/22 02:47 02:47 02:47 RBC Hgb Hct Lymphocytes # Sodium Chloride Carbon Dioxide BUN Creatinine Glucose POC Glucose (mg/dL) Plasma Lactic Acid Marcus 2.6 H* Troponin I 0.187 H* Urine Protein Urine Glucose (UA) Urine Blood Hyaline Casts Urine Mucus Influenza Type A RNA Detected H 04/11/22 04/11/22 07:24 08:56 RBC Hgb Hct Lymphocytes # Sodium 146 H Chloride 115 H Carbon Dioxide 17 L BUN 59 H Creatinine 4.70 H Glucose 144 H POC Glucose (mg/dL) Plasma Lactic Acid Marcus Troponin I Urine Protein 3+ H Urine Glucose (UA) 1+ H Urine Blood Small H Hyaline Casts 4 H Urine Mucus Rare H Influenza Type A RNA - Diagnostic Findings Chest x-ray: image reviewed Assessment and Plan Assessment: Acute exacerbation chronic combined systolic and diastolic congestive heart failure Left pleural effusion measuring only 3.8 cm, chronic in nature Acute influenza A infection Moderate to severe pulmonary hypertension Acute on chronic kidney disease History of chronic kidney disease Insulin-dependent diabetes mellitus Hypertension Coronary artery disease with previous stent placements and urinary artery bypass grafting 5 in 2009 Diabetic neuropathy Hyperlipidemia Nonsmoker plan: The patient was seen and evaluated Chest x-ray, labs and medications reviewed Ultrasound of the chest revealed no significant left pleural effusion Titrate the FiO2 as tolerated Continue Tamiflu Continue diuretics Cardiology and nephrology is consulted We will continue to follow and make further recommendations based on his clinical status I have personally seen and examined the patient, performed the documentation and the assessment and plan as written. Number of minutes spent on the visit: 20
[2022-04-11] MEDS: carvediloL 12.5 MG TAB PO SCH (17:35)
[2022-04-11] MEDS: hydrALAZINE HCL 50 MG TAB PO SCH ×2 (17:35→20:14)
[2022-04-11] MEDS: FUROSEMIDE 80 MG TAB PO SCH (17:35)
[2022-04-11] MEDS ORDERED: PANTOPRAZOLE 40 MG/10 ML VIAL IVP SCH (18:30)
[2022-04-11] MEDS: ATORVASTATIN 20 MG TAB PO SCH (20:14)
[2022-04-12 06:05] LABS: Glucose,Whole Blood 123 mg/dL (70-110)
[2022-04-12] MEDS: carvediloL 12.5 MG TAB PO SCH ×2 (06:46→16:53)
--- NOTE | 2022-04-12 06:49 | P.PN ---
Subjective Progress Note Date: 04/12/22 Principal diagnosis: Shortness of breath This is a 73-year-old with past medical history significant for CAD and status post CABG with AGUILLON to LAD and SVG to first diagonal as well as SVG to OM1 and OM 2 and OM 3 and SVG to RCA as well as stenting to the RCA and also history of ischemic cardiomyopathy and pulmonary hypertension and dyslipidemia and systemic hypertension as well as end stage renal disease. The patient was admitted to the hospital with change in mental status. He was diagnosed with influenza. April 122021 The patient was seen at this morning. He seems to be stable. His confusion has been somewhat slightly improved. He reports no pain in the chest. No dizziness or lightheadedness. Hemodynamically he is stable. He is on Lasix by mouth. The patient is not in any overt congestive heart failure. He does have chronic pleural effusion. At this point I would continue the current medical regimen and continue treatment for influenza and continue following up with the patient. Objective - Vital Signs Vital signs: Vital Signs Temp 98 F 04/11/22 20:00 Pulse 82 04/12/22 04:00 Resp 18 04/12/22 04:00 BP 125/69 04/12/22 04:00 Pulse Ox 95 04/12/22 04:00 FiO2 Intake & Output 04/11/22 04/11/22 04/12/22 06:59 18:59 06:59 Output Total 500 Balance -500 Weight 103.419 kg 103.419 kg Output: Urine 500 Other: Voiding Method External Catheter # Voids 2 - Constitutional General appearance: Present: no acute distress - Respiratory Respiratory: bilateral: diminished - Cardiovascular Rhythm: regular - Labs CBC & Chem 7: 04/11/22 02:47 04/11/22 07:24 Labs: Abnormal Lab Results - Last 24 Hours (Table) 04/11/22 04/11/22 04/12/22 Range/Units 07:24 08:56 06:04 Sodium 146 H (137-145) mmol/L Chloride 115 H (98-107) mmol/L Carbon Dioxide 17 L (22-30) mmol/L BUN 59 H (9-20) mg/dL Creatinine 4.70 H (0.66-1.25) mg/dL Glucose 144 H (74-99) mg/dL POC Glucose (mg/dL) 123 H (70-110) mg/dL Urine Protein 3+ H (Negative) Urine Glucose (UA) 1+ H (Negative) Urine Blood Small H (Negative) Hyaline Casts 4 H (0-2) /lpf Urine Mucus Rare H (None) /hpf Assessment and Plan Assessment: Assessment #1 change in mental status #2 influenza A infection #3 CAD with prior revascularization as described above #4 ischemic cardiomyopathy #5 hypertension #6 dyslipidemia #7 valvular heart disease #8 end stage renal disease Plan #1 the patient symptoms are likely to be multifactorial #2 continue the current medical regimen including the current dose of Lasix by mouth #3 continue monitor the kidney function and electrolytes #4 pulmonary and nephrology service are on the case #5 no need for any further cardiac intervention at this point
[2022-04-12] MEDS: SODIUM BICARBONATE TAB 650 MG TAB PO SCH ×3 (08:28→21:30)
[2022-04-12] MEDS: hydrALAZINE HCL 50 MG TAB PO SCH ×3 (08:28→21:30)
[2022-04-12] MEDS: ASPIRIN 81 MG PO SCH (08:28)
[2022-04-12] MEDS: CLOPIDOGREL 75 MG TAB PO SCH (08:28)
[2022-04-12] MEDS: PANTOPRAZOLE 40 MG/10 ML VIAL IVP SCH (08:28)
[2022-04-12] MEDS: FUROSEMIDE 80 MG TAB PO SCH (08:28)
[2022-04-12] MEDS: ISOSORBIDE MONONITRATE ER 30 MG TAB.ER.24H PO SCH (08:28)
[2022-04-12] MEDS: OSELTAMIVIR 60 MG/10 ML ORAL SYRINGE PO SCH (08:29)
--- NOTE | 2022-04-12 10:05 | P.HPIM ---
History of Present Illness H&P Date: 04/11/22 72-year-old male with past history of coronary artery disease status post bypass, diabetes, congestive heart failure, chronic kidney disease who presents emergency Department with altered mental status and weakness. is at bedside and provides a history. She states that they went out of state on vacation to visit family members. The patient started having a cough on Thursday. They drove home today and throughout the drive the patient became more dizzy, weak and unresponsive. She states that she attempted to get the patient out of the car at one of the rest stops and the patient couldn't even ambulate. He was complaining that he was extremely lightheaded and nauseated. He did have a couple small episodes of emesis. The denies that the patient was around any sick contacts. No recorded fevers. The patient denies any chest pain or shortness of breath. Nonproductive cough. He denies any abdominal pain. No diarrhea. Denies any black or bloody stools. No history of stroke. Denies ataxia. No speech deficits. Patient overly fatigued causing alteration in his mental status. Review of Systems GENERAL: Patient denies fever. Denies chills. EYES: Denies blurred vision. Denies vision changes. Denies eye pain. EARS, NOSE, MOUTH, & THROAT: Denies headache. Denies sore throat. Denies ear pain. RESPIRATORY: shortness of breath. Denies sputum production. Denies hemoptysis. CARDIOVASCULAR: Denies chest pain or pressure. GASTROINTESTINAL: nausea and vomiting. Denies heartburn. Denies blood in the stool. GENITOURINARY: Denies urinary frequency. Denies burning. cloudy urine. MUSCULOSKELETAL: Denies myalgias. Denies joint swelling. Denies decreased range of motion beyond patients baseline. INTEGUMENTARY: Denies pruitis. Denies rash. PSYCHIATRIC: Denies suicidal or homicial ideations. ENDOCRINE: increase increaseweight change. Denies polydipsia. Denies polyuria. HEMATOLOGIC: Denies bleeding disorders. Past Medical History Past Medical History: Coronary Artery Disease (CAD), Chest Pain / Angina, Heart Failure, Diabetes Mellitus, Eye Disorder, GERD/Reflux, Hyperlipidemia, Hypertension, Myocardial Infarction ([place]), Pneumonia, Renal Disease Additional Past Medical History / Comment(s): IDDM type II, bilateral diabetic retinopathy, CKD stage III, nephrolithiasis, bronchitis, L pleural effusion, recently received 2 iron infusions for anemia. Last Myocardial Infarction Date:: 2009 History of Any Multi-Drug Resistant Organisms: None Reported Past Surgical History: Coronary Bypass/CABG, Heart Catheterization, Heart Catheterization With Stent Additional Past Surgical History / Comment(s): 2009 CABG 5 vessel, bilateral cataract removals/lens implants, oral surgery Past Anesthesia/Blood Transfusion Reactions: No Reported Reaction, Motion Sickness Date of Last Stent Placement:: 08/05/17 Smoking Status: Never smoker - Past Family History Mother Family Medical History: CVA/TIA, Diabetes Mellitus Father Family Medical History: CVA/TIA, Myocardial Infarction ([place]) Additional Family Medical History / Comment(s): mother: htn, dm. Medications and Allergies Home Medications Medication Instructions Recorded Confirmed Type Aspirin EC [Ecotrin Low Dose] 81 mg PO DAILY 10/27/13 04/11/22 History Famotidine [Pepcid] 20 mg PO DAILY 10/27/13 04/11/22 History allopurinoL [Zyloprim] 100 mg PO BID 10/27/13 04/11/22 History Atorvastatin [Lipitor] 20 mg PO HS 12/30/16 04/11/22 History Clopidogrel [Plavix] 75 mg PO DAILY #90 tab 07/15/17 04/11/22 Rx Nitroglycerin Sl Tabs [Nitrostat] 0.4 mg PO Q5M PRN 07/18/19 04/11/22 History carvediloL [Coreg] 25 mg PO BID 07/18/19 04/11/22 History Furosemide [Lasix] 80 mg PO BID #1 tablet 11/02/19 04/11/22 Rx hydrALAZINE HCL [Apresoline] 50 mg PO TID #90 tab 11/02/19 04/11/22 Rx Ergocalciferol [Vitamin D2 (1250 1,250 mcg PO KEATING 04/11/22 04/11/22 History Mcg = 78921 Iu)] Ferrous Sulfate [Feosol] 325 mg PO DAILY 04/11/22 04/11/22 History INSULIN LISPRO (humaLOG) [humaLOG] 18 units SQ AC-BRKFST 04/11/22 04/11/22 History Insulin Glargine,Hum.rec.anlog 30 unit SQ DAILY 04/11/22 04/11/22 History [Lantus Solostar Pen] Insulin Lispro [humaLOG Kwikpen] 10 units SQ AC-BID@1200,1800 04/11/22 04/11/22 History Isosorbide Mononitrate [Isosorbide 30 mg PO DAILY 04/11/22 04/11/22 History Mononitrate ER] Potassium Chloride ER [K-Dur 20] 20 meq PO TID 04/11/22 04/11/22 History calcitrioL [Calcitriol] 0.25 mg PO MOTUWETHFR 04/11/22 04/11/22 History lisinopriL [Zestril] 2.5 mg PO DAILY 04/11/22 04/11/22 History metOLazone [Zaroxolyn] 5 mg PO DAILY PRN 04/11/22 History Allergies Allergy/AdvReac Type Severity Reaction Status Date / Time No Known Allergies Allergy Verified 04/10/22 19:28 Physical Exam Osteopathic Statement: *. No significant issues noted on an osteopathic structural exam other than those noted in the History and Physical/Consult. Vitals: Vital Signs Temp Pulse Pulse Resp BP BP Pulse Ox 04/12/22 08:00 98.2 F 69 20 159/80 97 04/12/22 04:00 82 18 125/69 95 04/12/22 02:00 17 04/12/22 00:00 82 17 169/66 95 04/11/22 20:00 98 F 80 18 156/75 95 04/11/22 18:36 98 F 78 18 160/98 98 04/11/22 18:06 93 17 170/91 97 04/11/22 16:00 93 18 170/91 97 04/11/22 15:08 92 17 159/91 96 04/11/22 13:00 89 15 159/91 97 04/11/22 10:22 86 17 176/99 97 Intake and Output 04/11/22 04/12/22 04/12/22 22:59 06:59 14:59 Intake Total 240 Output Total 500 Balance -500 240 Intake: Oral 240 Output: Urine 500 Other: Voiding Method External Catheter External Catheter # Voids 2 Weight 103.419 kg GENERAL EXAM: Alert, weak 72-year-old male, on 2 L nasal cannula, comfortable in no apparent distress. HEAD: Normocephalic. EYES: Normal reaction of pupils, equal size. NOSE: Clear with pink turbinates. THROAT: No erythema or exudates. NECK: No masses, no JVD. CHEST: No chest wall deformity. LUNGS: Equal air entry with crackles in the bases. CVS: S1 and S2 normal with no audible murmur, regular rhythm. ABDOMEN: No hepatosplenomegaly, normal bowel sounds, no guarding or rigidity. SPINE: No scoliosis or deformity SKIN: No rashes CENTRAL NERVOUS SYSTEM: No focal deficits, tone is normal in all 4 extremities. EXTREMITIES: Changes of chronic venous stasis of lower extremities. There is 1- 2+ peripheral edema. Peripheral pulses are intact. Results CBC & Chem 7: 04/11/22 02:47 04/11/22 07:24 Labs: Abnormal Lab Results - Last 24 Hours (Table) 04/12/22 Range/Units 06:04 POC Glucose (mg/dL) 123 H (70-110) mg/dL Thrombosis Risk Factor Assmnt - Choose All That Apply Each Factor Represents 1 point: Obesity (BMI >25) Each Risk Factor Represents 2 Points: Age 61-74 years Thrombosis Risk Factor Assessment Total Risk Factor Score: 3 Thrombosis Risk Factor Assessment Level: Moderate Risk Assessment and Plan (1) Congestive heart failure Current Visit: Yes Status: Acute Code(s): I50.9 - HEART FAILURE, UNSPECIFIED SNOMED Code(s): 43030903 (2) Encephalopathy acute Current Visit: Yes Status: Acute Code(s): G93.40 - ENCEPHALOPATHY, UNSPECIFIED SNOMED Code(s): 50177902 (3) Influenza A Current Visit: Yes Status: Acute Code(s): J10.1 - FLU DUE TO OTH IDENT INFLUENZA VIRUS W OTH RESP MANIFEST SNOMED Code(s): 707150472 (4) Nausea and vomiting Current Visit: Yes Status: Acute Code(s): R11.2 - NAUSEA WITH VOMITING, UNSPECIFIED SNOMED Code(s): 85680775 (5) Renal failure (ARF), acute on chronic Current Visit: Yes Status: Acute Code(s): N17.9 - ACUTE KIDNEY FAILURE, UNSPECIFIED; N18.9 - CHRONIC KIDNEY DISEASE, UNSPECIFIED SNOMED Code(s): 705078229 Plan: Plan is to admit patient with nephrology consult gentle hydration also ask c ardiology and pulmonary to see patient is an guarded condition at this time we'll continue to monitor his progress. Time with Patient: Greater than 30
[2022-04-12 10:22] LABS: Calcium 7.8 mg/dL (8.4-10.2); Magnesium 2.1 mg/dL (1.6-2.3); Potassium 3.7 mmol/L (3.5-5.1)
[2022-04-12 10:43] LABS: Basophils # (A) 0.1 k/uL (0-0.2); Basophils % (A) 1 %; Eosinophils # (A) 0.1 k/uL (0-0.7); Eosinophils % (A) 2 %; HCT 29.4 % (39.0-53.0); Lymphocytes # (A) 0.5 k/uL (1.0-4.8); Lymphocytes % (A) 10 %; MCH 33.5 pg (25.0-35.0); MCHC 33.7 g/dL (31.0-37.0); MCV 99.3 fL (80.0-100.0); Monocytes # (A) 0.4 k/uL (0-1.0); Monocytes % (A) 9 %; Neutrophils # (A) 3.9 k/uL (1.3-7.7); Neutrophils % (A) 77 %; Platelet Count 139 k/uL (150-450); RBC 2.96 m/uL (4.30-5.90); RDW 14.1 % (11.5-15.5)
[2022-04-12 10:45] LABS: HGB 9.9 gm/dL (13.0-17.5)
--- NOTE | 2022-04-12 10:49 | P.PN ---
Subjective Patient is seen in follow-up for chronic kidney disease. Creatinine 5.1. Awake and alert. Has been voiding. Has external catheter. States appetite is slowly getting better. Denies vomiting or diarrhea. Vital signs are stable. General: Awake. No acute distress. HEENT: Head exam is unremarkable. LUNGS: Breath sounds decreased. HEART: Rate and Rhythm are regular. ABDOMEN: Soft, no distention. EXTREMITITES: No edema. Objective - Vital Signs Vital signs: Vital Signs Temp 98.2 F 04/12/22 08:00 Pulse 69 04/12/22 08:00 Resp 20 04/12/22 08:00 BP 159/80 04/12/22 08:00 Pulse Ox 97 04/12/22 08:00 FiO2 Intake & Output 04/11/22 04/12/22 04/12/22 18:59 06:59 18:59 Intake Total 240 Output Total 500 Balance -500 240 Weight 103.419 kg Intake: Oral 240 Output: Urine 500 Other: Voiding Method External Catheter External Catheter # Voids 2 - Labs CBC & Chem 7: 04/11/22 02:47 04/12/22 09:34 Labs: Abnormal Lab Results - Last 24 Hours (Table) 04/12/22 04/12/22 Range/Units 06:04 09:34 Chloride 109 H (98-107) mmol/L Carbon Dioxide 20 L (22-30) mmol/L BUN 58 H (9-20) mg/dL Creatinine 5.13 H (0.66-1.25) mg/dL Glucose 189 H (74-99) mg/dL POC Glucose (mg/dL) 123 H (70-110) mg/dL Calcium 7.8 L (8.4-10.2) mg/dL Assessment and Plan Plan: Assessment: 1. CARMEN, mostly prerenal, due to infection. Cr 5.13 today. 2. 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 Baseline creatinine 4-4.5. 3. Infuenza A infection. 4. Chronic systolic CHF with EF 35-40%, moderate to severe TR/pulm HTN. 5. CAD s/p cardiac stenting. 7. Mild hypernatremia due to lack of free water intake. Improved with D5W. 8. Metabolic acidosis due to CKD. On oral bicarbonate. Better. 9. HTN with CKD. 10. Anemia of chronic kidney disease. Plan: Hep-Lock IV fluids. Decrease Lasix frequency to once daily. Avoid nephrotoxins. Interested in doing PD in future. Continue to assess need for SIGNAL TECHNICIAN. Check iron studies.
[2022-04-12] MEDS ORDERED: DEXTROSE 50% SYRINGE 50 ML IVP PRN ×2 (13:47)
--- NOTE | 2022-04-12 13:55 | P.PN ---
Subjective Progress Note Date: 04/12/22 Principal diagnosis: Mental status changes. This is a pleasant 72-year-old male patient with a known history of coronary artery disease with previous bypass surgery x 5, previous stent placement, diabetes mellitus, congestive heart failure, chronic kidney disease, hypertension, hyperlipidemia, diabetic retinopathy, nonsmoker. He had been recently traveling out of state to visit family and on the way back he started having issues with dizziness weakness and lethargy. His had tried to get him out of the car at a rest stop and he couldn't even ambulate. He was extremely dizzy, lightheaded and nauseated. Denied any sick contacts. Computed tomography scan of the brain revealed cerebral atrophy and extensive ischemic white matter changes. No change compared to previous. No acute processes. EKG revealed sinus mechanism. chest x-ray revealed a left-sided diffuse pulmonary airspace infiltrate and edema. Some chronic left pleural effusion. Mild right- sided pulmonary interstitial edema. We were consulted for the same. He is seen today in the emergency department. He is currently awake and alert. He remains dizzy. He is maintaining O2 saturations in the upper 90s on 2 L/m per nasal cannula. Afebrile. Somewhat hypertensive. White count 6.8. Hemoglobin 11.6. Platelets 192. Sodium 146. Potassium 4.4. Chloride 113. Bicarb 17. BUN 59. Creatinine 4.70. proBNP 23,600. Troponin 0.187. Negative for keith virus. Positive for influenza A. He had been initiated on D5W at 50 MLS per hour. Started on Tamiflu. Progress note dated 04/12/2022. The patient is seen today in room 384. He was seen in the emergency department yesterday. He came in with mental status changes, thought to be related to influenza A infection. In addition, he had evidence of congestive heart failure, with a small effusion. Ultrasound did not reveal an effusion large enough to perform thoracentesis. Currently, the patient's on 2 L of oxygen. He is getting D5W at 50 mL an hour. He looks stable, much more awake and alert. Labs today include a white count of 5, hemoglobin 9.9, hematocrit 29.4, and platelet count of 139,000. Sodium 140, potassium 3.7, chlorides 109, CO2 20, BUN 58, creatinine 5.13. Objective - Vital Signs Vital signs: Vital Signs Temp 98.1 F 04/12/22 11:38 Pulse 67 04/12/22 11:38 Resp 20 04/12/22 11:38 BP 143/79 04/12/22 11:38 Pulse Ox 97 04/12/22 11:38 FiO2 Intake & Output 04/11/22 04/12/22 04/12/22 18:59 06:59 18:59 Intake Total 240 Output Total 500 Balance -500 240 Weight 103.419 kg Intake: Oral 240 Output: Urine 500 Other: Voiding Method External Catheter External Catheter # Voids 2 - Exam No acute distress, oriented 3. Currently on 2 L. No respiratory distress. HEENT examination is grossly unremarkable. Neck supple. Full range of motion. No adenopathy thyromegaly or neck vein distention. Cardiovascular examination reveals regular rhythm rate. S1-S2 normal. No S3 or S4. No discernible murmur noted. Lungs reveal scattered basilar crackles. No wheezes. No rhonchi. Breath sounds equal bilaterally. Abdomen soft bowel sounds are heard. No masses or tenderness. Extremities are intact. No cyanosis clubbing or edema. Skin is without rash or lesion. Neurologic examination is brief but nonfocal. - Labs CBC & Chem 7: 04/12/22 09:34 04/12/22 09:34 Labs: Abnormal Lab Results - Last 24 Hours (Table) 04/12/22 04/12/22 04/12/22 Range/Units 06:04 09:34 09:34 RBC 2.96 L (4.30-5.90) m/uL Hgb 9.9 L D (13.0-17.5) gm/dL Hct 29.4 L (39.0-53.0) % Plt Count 139 L (150-450) k/uL Lymphocytes # 0.5 L (1.0-4.8) k/uL Chloride 109 H (98-107) mmol/L Carbon Dioxide 20 L (22-30) mmol/L BUN 58 H (9-20) mg/dL Creatinine 5.13 H (0.66-1.25) mg/dL Glucose 189 H (74-99) mg/dL POC Glucose (mg/dL) 123 H (70-110) mg/dL Calcium 7.8 L (8.4-10.2) mg/dL Assessment and Plan Assessment: Acute exacerbation chronic combined systolic and diastolic congestive heart failure. Left pleural effusion measuring only 3.8 cm, chronic in nature. Acute influenza A infection. Moderate to severe pulmonary hypertension. Acute on chronic kidney disease. History of chronic kidney disease. Insulin-dependent diabetes mellitus. Hypertension. Coronary artery disease with previous stent placements and CABG 5 in 2009. Diabetic neuropathy. Hyperlipidemia. Nonsmoker. Plan: Plan dated 04/12/2022. The patient's resting comfortably. We will continue to follow. The patient's currently on Tamiflu, 75 mg twice a day. Labs, x-rays, medications are reviewed. Both cardiology and nephrology has been consulted. Respiratory status is stable. The patient remains on 2 L. Ultrasound of the chest reveals a small pleural effusion, and thoracentesis is not necessary at this time. Time with Patient: Less than 30
[2022-04-12] MEDS: INSULIN ASPART (NovoLOG) 100 UNIT/ML VIAL SQ SCH ×2 (17:00→21:03)
[2022-04-12 17:04] LABS: Glucose,Whole Blood 141 mg/dL (70-110)
[2022-04-12 17:44] LABS: % Iron Saturation 6.4 (15.00-50.00)
[2022-04-12 20:50] LABS: Glucose,Whole Blood 118 mg/dL (70-110)
[2022-04-12] MEDS: ATORVASTATIN 20 MG TAB PO SCH (21:30)
[2022-04-13 06:01] LABS: Calcium 7.8 mg/dL (8.4-10.2); Magnesium 2.2 mg/dL (1.6-2.3); Potassium 3.6 mmol/L (3.5-5.1)
[2022-04-13 06:02] LABS: Glucose,Whole Blood 144 mg/dL (70-110)
[2022-04-13] MEDS: INSULIN ASPART (NovoLOG) 100 UNIT/ML VIAL SQ SCH ×4 (06:45→21:37)
[2022-04-13] MEDS: carvediloL 12.5 MG TAB PO SCH ×2 (06:45→17:15)
--- NOTE | 2022-04-13 07:00 | P.PN ---
Subjective Progress Note Date: 04/13/22 Principal diagnosis: Shortness of breath This is a 73-year-old with past medical history significant for CAD and status post CABG with AGUILLON to LAD and SVG to first diagonal as well as SVG to OM1 and OM 2 and OM 3 and SVG to RCA as well as stenting to the RCA and also history of ischemic cardiomyopathy and pulmonary hypertension and dyslipidemia and systemic hypertension as well as end stage renal disease. The patient was admitted to the hospital with change in mental status. He was diagnosed with influenza. April 122021 The patient was seen at this morning. He seems to be stable. His confusion has been somewhat slightly improved. He reports no pain in the chest. No dizziness or lightheadedness. Hemodynamically he is stable. He is on Lasix by mouth. The patient is not in any overt congestive heart failure. He does have chronic pleural effusion. At this point I would continue the current medical regimen and continue treatment for influenza and continue following up with the patient. 04/13/2022 The patient was seen and evaluated this morning. He is slightly confused. He did have a bout of diarrhea last night. Otherwise from the cardiovascular standpoint of view, he remains stable. He remains asymptomatic in terms of chest pain or chest discomfort or shortness of breath. He remains he mechanically stable. He is not in any overt heart failure when he was seen and examined this morning. He continues to be on Lasix by mouth and the creatinine continues to be stable and he continues to be seen by the nephrology service. From a cardiovascular standpoint of view, I would continue the current medical regimen and follow-up with the patient on when necessary Objective - Vital Signs Vital signs: Vital Signs Temp 97.9 F 04/13/22 04:00 Pulse 67 04/13/22 04:00 Resp 18 04/13/22 04:00 BP 159/77 04/13/22 04:00 Pulse Ox 93 L 04/13/22 04:00 FiO2 Intake & Output 04/12/22 04/12/22 04/13/22 06:59 18:59 06:59 Intake Total 780 540 Output Total 500 350 200 Balance -500 430 340 Weight 103 kg Intake: Intake, IV Titration 200 Amount Dextrose 5% in Water 1, 200 000 ml @ 50 mls/hr IV . Q20H [facility] Rx#:[id number] Oral 580 540 Output: Urine 500 350 200 Other: Voiding Method External Catheter External Catheter External Catheter # Voids 2 1 # Bowel Movements 1 1 - Constitutional General appearance: Present: no acute distress - Labs CBC & Chem 7: 04/12/22 09:34 04/13/22 04:19 Labs: Abnormal Lab Results - Last 24 Hours (Table) 04/12/22 04/12/22 04/12/22 Range/Units 09:34 09:34 09:34 RBC 2.96 L (4.30-5.90) m/uL Hgb 9.9 L D (13.0-17.5) gm/dL Hct 29.4 L (39.0-53.0) % Plt Count 139 L (150-450) k/uL Lymphocytes # 0.5 L (1.0-4.8) k/uL Chloride 109 H (98-107) mmol/L Carbon Dioxide 20 L (22-30) mmol/L BUN 58 H (9-20) mg/dL Creatinine 5.13 H (0.66-1.25) mg/dL Glucose 189 H (74-99) mg/dL POC Glucose (mg/dL) (70-110) mg/dL Hemoglobin A1c (0.0-6.0) % Calcium 7.8 L (8.4-10.2) mg/dL Iron 13 L (65-175) ug/dL TIBC 203 L (228-460) ug/dL % Saturation 6.40 L (15.00-50.00) Transferrin 145.0 L (204.0-354.0) mg/dL 04/12/22 04/12/22 04/12/22 Range/Units 09:34 16:58 20:11 RBC (4.30-5.90) m/uL Hgb (13.0-17.5) gm/dL Hct (39.0-53.0) % Plt Count (150-450) k/uL Lymphocytes # (1.0-4.8) k/uL Chloride (98-107) mmol/L Carbon Dioxide (22-30) mmol/L BUN (9-20) mg/dL Creatinine (0.66-1.25) mg/dL Glucose (74-99) mg/dL POC Glucose (mg/dL) 141 H 118 H (70-110) mg/dL Hemoglobin A1c 7.6 H (0.0-6.0) % Calcium (8.4-10.2) mg/dL Iron (65-175) ug/dL TIBC (228-460) ug/dL % Saturation (15.00-50.00) Transferrin (204.0-354.0) mg/dL 04/13/22 04/13/22 Range/Units 04:19 06:00 RBC (4.30-5.90) m/uL Hgb (13.0-17.5) gm/dL Hct (39.0-53.0) % Plt Count (150-450) k/uL Lymphocytes # (1.0-4.8) k/uL Chloride 108 H (98-107) mmol/L Carbon Dioxide (22-30) mmol/L BUN 64 H (9-20) mg/dL Creatinine 5.73 H (0.66-1.25) mg/dL Glucose 128 H (74-99) mg/dL POC Glucose (mg/dL) 144 H (70-110) mg/dL Hemoglobin A1c (0.0-6.0) % Calcium 7.8 L (8.4-10.2) mg/dL Iron (65-175) ug/dL TIBC (228-460) ug/dL % Saturation (15.00-50.00) Transferrin (204.0-354.0) mg/dL Assessment and Plan Assessment: Assessment #1 change in mental status #2 influenza A infection #3 CAD with prior revascularization as described above #4 ischemic cardiomyopathy #5 hypertension #6 dyslipidemia #7 valvular heart disease #8 end stage renal disease Plan #1 the patient symptoms are likely to be multifactorial #2 continue the current medical regimen including the current dose of Lasix by mouth #3 continue monitor the kidney function and electrolytes #4 pulmonary and nephrology service are on the case #5 no need for any further cardiac intervention at this point #6 follow-up with the patient on when necessary
[2022-04-13] MEDS: ISOSORBIDE MONONITRATE ER 30 MG TAB.ER.24H PO SCH (08:46)
[2022-04-13] MEDS: OSELTAMIVIR 60 MG/10 ML ORAL SYRINGE PO SCH (08:46)
[2022-04-13] MEDS: ASPIRIN 81 MG PO SCH (08:46)
[2022-04-13] MEDS: FUROSEMIDE 80 MG TAB PO SCH (08:47)
[2022-04-13] MEDS: PANTOPRAZOLE 40 MG/10 ML VIAL IVP SCH (08:47)
[2022-04-13] MEDS: CLOPIDOGREL 75 MG TAB PO SCH (08:47)
[2022-04-13] MEDS: hydrALAZINE HCL 50 MG TAB PO SCH (08:47)
[2022-04-13] MEDS: SODIUM BICARBONATE TAB 650 MG TAB PO SCH ×3 (08:47→21:41)
[2022-04-13] MEDS ORDERED: POTASSIUM CHLORIDE ER 20 MEQ TAB.ER PO STA (10:46)
--- NOTE | 2022-04-13 10:49 | P.PN ---
Subjective Patient is seen in follow-up for chronic kidney disease. Creatinine 5.7. Awake and alert. Has been voiding. Has external catheter. Denies chest pain or shortness of breath. Has been eating but doesn't like the food. Vital signs are stable. General: Awake. No acute distress. HEENT: Head exam is unremarkable. LUNGS: Breath sounds decreased. HEART: Rate and Rhythm are regular. ABDOMEN: Soft, no distention. EXTREMITITES: No edema. Objective - Vital Signs Vital signs: Vital Signs Temp 98.4 F 04/13/22 08:00 Pulse 84 04/13/22 08:00 Resp 20 04/13/22 08:00 BP 160/79 04/13/22 08:00 Pulse Ox 93 L 04/13/22 08:00 FiO2 Intake & Output 04/12/22 04/13/22 04/13/22 18:59 06:59 18:59 Intake Total 780 540 240 Output Total 350 200 Balance 430 340 240 Weight 103 kg Intake: Intake, IV Titration 200 Amount Dextrose 5% in Water 1, 200 000 ml @ 50 mls/hr IV . Q20H [facility] Rx#:[id number] Oral 580 540 240 Output: Urine 350 200 Other: Voiding Method External Catheter External Catheter External Catheter # Voids 1 # Bowel Movements 1 1 - Labs CBC & Chem 7: 04/12/22 09:34 04/13/22 04:19 Labs: Abnormal Lab Results - Last 24 Hours (Table) 04/12/22 04/12/22 04/12/22 Range/Units 09:34 09:34 09:34 RBC 2.96 L (4.30-5.90) m/uL Hgb 9.9 L D (13.0-17.5) gm/dL Hct 29.4 L (39.0-53.0) % Plt Count 139 L (150-450) k/uL Lymphocytes # 0.5 L (1.0-4.8) k/uL Chloride (98-107) mmol/L BUN (9-20) mg/dL Creatinine (0.66-1.25) mg/dL Glucose (74-99) mg/dL POC Glucose (mg/dL) (70-110) mg/dL Hemoglobin A1c 7.6 H (0.0-6.0) % Calcium (8.4-10.2) mg/dL Iron 13 L (65-175) ug/dL TIBC 203 L (228-460) ug/dL % Saturation 6.40 L (15.00-50.00) Transferrin 145.0 L (204.0-354.0) mg/dL 04/12/22 04/12/22 04/13/22 Range/Units 16:58 20:11 04:19 RBC (4.30-5.90) m/uL Hgb (13.0-17.5) gm/dL Hct (39.0-53.0) % Plt Count (150-450) k/uL Lymphocytes # (1.0-4.8) k/uL Chloride 108 H (98-107) mmol/L BUN 64 H (9-20) mg/dL Creatinine 5.73 H (0.66-1.25) mg/dL Glucose 128 H (74-99) mg/dL POC Glucose (mg/dL) 141 H 118 H (70-110) mg/dL Hemoglobin A1c (0.0-6.0) % Calcium 7.8 L (8.4-10.2) mg/dL Iron (65-175) ug/dL TIBC (228-460) ug/dL % Saturation (15.00-50.00) Transferrin (204.0-354.0) mg/dL 04/13/22 Range/Units 06:00 RBC (4.30-5.90) m/uL Hgb (13.0-17.5) gm/dL Hct (39.0-53.0) % Plt Count (150-450) k/uL Lymphocytes # (1.0-4.8) k/uL Chloride (98-107) mmol/L BUN (9-20) mg/dL Creatinine (0.66-1.25) mg/dL Glucose (74-99) mg/dL POC Glucose (mg/dL) 144 H (70-110) mg/dL Hemoglobin A1c (0.0-6.0) % Calcium (8.4-10.2) mg/dL Iron (65-175) ug/dL TIBC (228-460) ug/dL % Saturation (15.00-50.00) Transferrin (204.0-354.0) mg/dL Assessment and Plan Plan: Assessment: 1. CARMEN, mostly prerenal, due to infection. Cr 5.73 today. 2. 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 Baseline creatinine 4-4.5. 3. Infuenza A infection. 4. Chronic systolic CHF with EF 35-40%, moderate to severe TR/pulm HTN. 5. CAD s/p cardiac stenting. 7. Mild hypernatremia due to lack of free water intake. Improved with D5W. 8. Metabolic acidosis due to CKD. On oral bicarbonate. Better. 9. HTN with CKD. 10. Anemia of chronic kidney disease. Iron deficiency noted. Plan: Added IV iron. Maintain oral Lasix. Avoid nephrotoxins. Interested in doing PD in future. Continue to assess need for [employer] daily. Patient wants to hold off on starting dialysis at this time. Check phosphorus level as well. Replace potassium.
[2022-04-13 12:03] LABS: Glucose,Whole Blood 188 mg/dL (70-110)
[2022-04-13] MEDS: SODIUM FERRIC GLUCONAT-SUCROSE 125 MG in SODIUM CHLORIDE 0.9% 100 ML IVPB SCH (12:06)
--- NOTE | 2022-04-13 12:32 | P.PN ---
Subjective Progress Note Date: 04/13/22 Principal diagnosis: Mental status changes. This is a pleasant 72-year-old male patient with a known history of coronary artery disease with previous bypass surgery x 5, previous stent placement, diabetes mellitus, congestive heart failure, chronic kidney disease, hypertension, hyperlipidemia, diabetic retinopathy, nonsmoker. He had been recently traveling out of state to visit family and on the way back he started having issues with dizziness weakness and lethargy. His had tried to get him out of the car at a rest stop and he couldn't even ambulate. He was extremely dizzy, lightheaded and nauseated. Denied any sick contacts. Computed tomography scan of the brain revealed cerebral atrophy and extensive ischemic white matter changes. No change compared to previous. No acute processes. EKG revealed sinus mechanism. chest x-ray revealed a left-sided diffuse pulmonary airspace infiltrate and edema. Some chronic left pleural effusion. Mild right- sided pulmonary interstitial edema. We were consulted for the same. He is seen today in the emergency department. He is currently awake and alert. He remains dizzy. He is maintaining O2 saturations in the upper 90s on 2 L/m per nasal cannula. Afebrile. Somewhat hypertensive. White count 6.8. Hemoglobin 11.6. Platelets 192. Sodium 146. Potassium 4.4. Chloride 113. Bicarb 17. BUN 59. Creatinine 4.70. proBNP 23,600. Troponin 0.187. Negative for keith virus. Positive for influenza A. He had been initiated on D5W at 50 MLS per hour. Started on Tamiflu. Progress note dated 04/12/2022. The patient is seen today in room 384. He was seen in the emergency department yesterday. He came in with mental status changes, thought to be related to influenza A infection. In addition, he had evidence of congestive heart failure, with a small effusion. Ultrasound did not reveal an effusion large enough to perform thoracentesis. Currently, the patient's on 2 L of oxygen. He is getting D5W at 50 mL an hour. He looks stable, much more awake and alert. Labs today include a white count of 5, hemoglobin 9.9, hematocrit 29.4, and platelet count of 139,000. Sodium 140, potassium 3.7, chlorides 109, CO2 20, BUN 58, creatinine 5.13. Progress note dated 04/13/2022. The patient is seen today in room 384. He is on 2 L. Is awake and alert. Initially presented with some mental status changes, thought related to viral infection, i.e. influenza. He is doing much better now. Also, he was thought to have some congestive heart failure, with a small effusion, ultrasound did not reveal a fluid accumulation large enough benefit from thoracentesis. Current labs include a sodium 139, potassium 3.6, chlorides 108, CO2 22, BUN 64, and creatinine 5.73. The patient is being followed by nephrology. Objective - Vital Signs Vital signs: Vital Signs Temp 98 F 04/13/22 11:29 Pulse 69 04/13/22 11:29 Resp 20 04/13/22 11:29 BP 135/73 04/13/22 11:29 Pulse Ox 96 04/13/22 11:29 FiO2 Intake & Output 04/12/22 04/13/22 04/13/22 18:59 06:59 18:59 Intake Total 780 540 240 Output Total 350 200 Balance 430 340 240 Weight 103 kg Intake: Intake, IV Titration 200 Amount Dextrose 5% in Water 1, 200 000 ml @ 50 mls/hr IV . Q20H [facility] Rx#:[id number] Oral 580 540 240 Output: Urine 350 200 Other: Voiding Method External Catheter External Catheter External Catheter # Voids 1 # Bowel Movements 1 1 - Exam No acute distress, oriented 3. Currently on 2 L. No respiratory distress. HEENT examination is grossly unremarkable. Neck supple. Full range of motion. No adenopathy thyromegaly or neck vein distention. Cardiovascular examination reveals regular rhythm rate. S1-S2 normal. No S3 or S4. No discernible murmur noted. Heart rate is 69 bpm. Lungs reveal scattered basilar crackles. No wheezes. No rhonchi. Breath sounds equal bilaterally. Saturations are 96% on 2 L. Abdomen soft bowel sounds are heard. No masses or tenderness. Extremities are intact. No cyanosis clubbing or edema. Skin is without rash or lesion. Neurologic examination is brief but nonfocal. - Labs CBC & Chem 7: 04/12/22 09:34 04/13/22 04:19 Labs: Abnormal Lab Results - Last 24 Hours (Table) 04/12/22 04/12/22 04/12/22 Range/Units 09:34 09:34 16:58 Chloride (98-107) mmol/L BUN (9-20) mg/dL Creatinine (0.66-1.25) mg/dL Glucose (74-99) mg/dL POC Glucose (mg/dL) 141 H (70-110) mg/dL Hemoglobin A1c 7.6 H (0.0-6.0) % Calcium (8.4-10.2) mg/dL Iron 13 L (65-175) ug/dL TIBC 203 L (228-460) ug/dL % Saturation 6.40 L (15.00-50.00) Transferrin 145.0 L (204.0-354.0) mg/dL 04/12/22 04/13/22 04/13/22 Range/Units 20:11 04:19 06:00 Chloride 108 H (98-107) mmol/L BUN 64 H (9-20) mg/dL Creatinine 5.73 H (0.66-1.25) mg/dL Glucose 128 H (74-99) mg/dL POC Glucose (mg/dL) 118 H 144 H (70-110) mg/dL Hemoglobin A1c (0.0-6.0) % Calcium 7.8 L (8.4-10.2) mg/dL Iron (65-175) ug/dL TIBC (228-460) ug/dL % Saturation (15.00-50.00) Transferrin (204.0-354.0) mg/dL 04/13/22 Range/Units 12:00 Chloride (98-107) mmol/L BUN (9-20) mg/dL Creatinine (0.66-1.25) mg/dL Glucose (74-99) mg/dL POC Glucose (mg/dL) 188 H (70-110) mg/dL Hemoglobin A1c (0.0-6.0) % Calcium (8.4-10.2) mg/dL Iron (65-175) ug/dL TIBC (228-460) ug/dL % Saturation (15.00-50.00) Transferrin (204.0-354.0) mg/dL Assessment and Plan Assessment: Acute exacerbation chronic combined systolic and diastolic congestive heart failure. Left pleural effusion measuring only 3.8 cm, chronic in nature. Acute influenza A infection. Moderate to severe pulmonary hypertension. Acute on chronic kidney disease. History of chronic kidney disease. Insulin-dependent diabetes mellitus. Hypertension. Coronary artery disease with previous stent placements and CABG 5 in 2009. Diabetic neuropathy. Hyperlipidemia. Nonsmoker. Plan: Plan dated 04/12/2022. The patient's resting comfortably. We will continue to follow. The patient's currently on Tamiflu, 75 mg twice a day. Labs, x-rays, medications are reviewed. Both cardiology and nephrology has been consulted. Respiratory status is stable. The patient remains on 2 L. Ultrasound of the chest reveals a small pleural effusion, and thoracentesis is not necessary at this time. Plan dated 04/13/2022. The patient's mental status, has improved dramatically. He is awake and alert. He continues on Tamiflu. The patient has been seen by nephrology. Sodium bicarbonate tablets have been added. Additional recommendations and suggestions are forthcoming. Labs, x-rays, and medications are reviewed. We will continue to follow make recommendations along the way. Respiratory status is certainly stable at this time. Time with Patient: Less than 30
--- NOTE | 2022-04-13 15:04 | P.PN ---
Subjective Progress Note Date: 04/12/22 72-year-old male with past history of coronary artery disease status post bypass, diabetes, congestive heart failure, chronic kidney disease who presents emergency Department with altered mental status and weakness. is at bedside and provides a history. She states that they went out of state on vac ation to visit family members. The patient started having a cough on Thursday. They drove home today and throughout the drive the patient became more dizzy, weak and unresponsive. She states that she attempted to get the patient out of the car at one of the rest stops and the patient couldn't even ambulate. He was complaining that he was extremely lightheaded and nauseated. He did have a cou ple small episodes of emesis. The denies that the patient was around any sick contacts. No recorded fevers. The patient denies any chest pain or shortness of breath. Nonproductive cough. He denies any abdominal pain. No diarrhea. Denies any black or bloody stools. No history of stroke. Denies ataxia. No speech deficits. Patient overly fatigued causing alteration in his mental status. Objective - Vital Signs Vital signs: Vital Signs Temp 98.1 F 04/12/22 11:38 Pulse 67 04/12/22 11:38 Resp 20 04/12/22 11:38 BP 143/79 04/12/22 11:38 Pulse Ox 97 04/12/22 11:38 FiO2 Intake & Output 04/11/22 04/12/22 04/12/22 18:59 06:59 18:59 Intake Total 240 Output Total 500 Balance -500 240 Weight 103.419 kg Intake: Oral 240 Output: Urine 500 Other: Voiding Method External Catheter External Catheter # Voids 2 - Exam GENERAL EXAM: Alert, weak 72-year-old male, on 2 L nasal cannula, comfortable in no apparent distress. HEAD: Normocephalic. NECK: No masses, no JVD. CHEST: No chest wall deformity. LUNGS: Equal air entry with crackles in the bases. CVS: S1 and S2 normal with no audible murmur, regular rhythm. ABDOMEN: No hepatosplenomegaly, normal bowel sounds, no guarding or rigidity. CENTRAL NERVOUS SYSTEM: No focal deficits, tone is normal in all 4 extremities. EXTREMITIES: Changes of chronic venous stasis of lower extremities. There is 1- 2+ peripheral edema. Peripheral pulses are intact. - Labs CBC & Chem 7: 04/12/22 09:34 04/13/22 04:19 Labs: Abnormal Lab Results - Last 24 Hours (Table) 04/12/22 04/12/22 04/12/22 Range/Units 06:04 09:34 09:34 RBC 2.96 L (4.30-5.90) m/uL Hgb 9.9 L D (13.0-17.5) gm/dL Hct 29.4 L (39.0-53.0) % Plt Count 139 L (150-450) k/uL Lymphocytes # 0.5 L (1.0-4.8) k/uL Chloride 109 H (98-107) mmol/L Carbon Dioxide 20 L (22-30) mmol/L BUN 58 H (9-20) mg/dL Creatinine 5.13 H (0.66-1.25) mg/dL Glucose 189 H (74-99) mg/dL POC Glucose (mg/dL) 123 H (70-110) mg/dL Calcium 7.8 L (8.4-10.2) mg/dL Assessment and Plan Assessment: 1. Acute exacerbation chronic combined systolic and diastolic congestive heart failure 2. Left pleural effusion measuring only 3.8 cm, chronic in nature 3. Acute influenza A infection 4. Moderate to severe pulmonary hypertension 5. Acute on chronic kidney disease 6. Insulin-dependent diabetes mellitus/diabetic neuropathy 7. Hypertension 8. Hyperlipidemia 9. Coronary artery disease with previous stent placements and urinary artery bypass grafting 5 in 2009 Plan to continue with oxygen with plans to titrate of bleeding as needed; cardiology on board for diuretic therapy management; cardiology recommending to switch to oral diuretics; nephrology following for acute on chronic renal failure; we will continue to monitor strict HARLAN's, daily weights, renal function and electrolytes; continue to avoid nephrotoxins and hypotension -- Ultrasound of the chest completed which did not reveal any significant pleura l effusion
[2022-04-13 16:50] LABS: Glucose,Whole Blood 182 mg/dL (70-110)
[2022-04-13] MEDS: hydrALAZINE HCL 25 MG TAB PO SCH ×2 (17:15→21:41)
--- NOTE | 2022-04-13 18:38 | P.PN ---
Subjective Progress Note Date: 04/13/22 Principal diagnosis: Acute exacerbation combined systolic/diastolic CHF Left-sided pleural effusion Acute influenza infection Moderate to severe pulmonary hypertension 72-year-old male with past history of coronary artery disease status post bypass, diabetes, congestive heart failure, chronic kidney disease who presents emergency Department with altered mental status and weakness. is at bedside and provides a history. She states that they went out of state on vacation to visit family members. The patient started having a cough on Thursday. They drove home today and throughout the drive the patient became more dizzy, weak and unresponsive. She states that she attempted to get the patient out of the car at one of the rest stops and the patient couldn't even ambulate. He was complaining that he was extremely lightheaded and nauseated. He did have a couple small episodes of emesis. The denies that the patient was around any sick contacts. No recorded fevers. The patient denies any chest pain or shortness of breath. Nonproductive cough. He denies any abdominal pain. No diarrhea. Denies any black or bloody stools. No history of stroke. Denies ataxia. No speech deficits. Patient overly fatigued causing alteration in his mental status. 04/13/2022 Patient is seen and evaluated in room at bedside; no specific complaints reported He is doing much better now. Also, he was thought to have some congestive heart failure, with a small effusion, ultrasound did not reveal a fluid accumulation large enough benefit from thoracentesis. Current labs include a sodium 139, potassium 3.6, chlorides 108, CO2 22, BUN 64, and creatinine 5.73. The patient is being followed by nephrology. He continues on Tamiflu. The patient has been seen by nephrology. Sodium bicarbonate tablets have been added. Additional recommendations and suggestions are forthcoming. Labs, x-rays, and medications are reviewed. We will continue to follow make recommendations along the way. Respiratory status is certainly stable at this time. Objective - Vital Signs Vital signs: Vital Signs Temp 98 F 04/13/22 11:29 Pulse 69 04/13/22 11:29 Resp 20 04/13/22 11:29 BP 135/73 04/13/22 11:29 Pulse Ox 96 04/13/22 11:29 FiO2 Intake & Output 04/12/22 04/13/22 04/13/22 18:59 06:59 18:59 Intake Total 780 540 440 Output Total 350 200 550 Balance 430 340 -110 Weight 103 kg Intake: Intake, IV Titration 200 100 Amount Dextrose 5% in Water 1, 200 000 ml @ 50 mls/hr IV . Q20H [facility] Rx#:[id number] Sodium Ferric Gluconat- 100 Sucrose 125 mg In Sodium Chloride 0.9% 100 ml @ 100 mls/hr IVPB DAILY [facility] Rx#:[id number] Oral 580 540 340 Output: Urine 350 200 550 Other: Voiding Method External Catheter External Catheter External Catheter # Voids 1 # Bowel Movements 1 1 - Exam GENERAL EXAM: Alert, weak 72-year-old male, on 2 L nasal cannula, comfortable in no apparent distress. HEAD: Normocephalic. NECK: No masses, no JVD. CHEST: No chest wall deformity. LUNGS: Equal air entry with crackles in the bases. CVS: S1 and S2 normal with no audible murmur, regular rhythm. ABDOMEN: No hepatosplenomegaly, normal bowel sounds, no guarding or rigidity. CENTRAL NERVOUS SYSTEM: No focal deficits, tone is normal in all 4 extremities. EXTREMITIES: Changes of chronic venous stasis of lower extremities. There is 1- 2+ peripheral edema. Peripheral pulses are intact. - Labs CBC & Chem 7: 04/12/22 09:34 04/13/22 04:19 Labs: Abnormal Lab Results - Last 24 Hours (Table) 04/12/22 04/12/22 04/12/22 Range/Units 09:34 09:34 16:58 Chloride (98-107) mmol/L BUN (9-20) mg/dL Creatinine (0.66-1.25) mg/dL Glucose (74-99) mg/dL POC Glucose (mg/dL) 141 H (70-110) mg/dL Hemoglobin A1c 7.6 H (0.0-6.0) % Calcium (8.4-10.2) mg/dL Iron 13 L (65-175) ug/dL TIBC 203 L (228-460) ug/dL % Saturation 6.40 L (15.00-50.00) Transferrin 145.0 L (204.0-354.0) mg/dL 04/12/22 04/13/22 04/13/22 Range/Units 20:11 04:19 06:00 Chloride 108 H (98-107) mmol/L BUN 64 H (9-20) mg/dL Creatinine 5.73 H (0.66-1.25) mg/dL Glucose 128 H (74-99) mg/dL POC Glucose (mg/dL) 118 H 144 H (70-110) mg/dL Hemoglobin A1c (0.0-6.0) % Calcium 7.8 L (8.4-10.2) mg/dL Iron (65-175) ug/dL TIBC (228-460) ug/dL % Saturation (15.00-50.00) Transferrin (204.0-354.0) mg/dL 04/13/22 Range/Units 12:00 Chloride (98-107) mmol/L BUN (9-20) mg/dL Creatinine (0.66-1.25) mg/dL Glucose (74-99) mg/dL POC Glucose (mg/dL) 188 H (70-110) mg/dL Hemoglobin A1c (0.0-6.0) % Calcium (8.4-10.2) mg/dL Iron (65-175) ug/dL TIBC (228-460) ug/dL % Saturation (15.00-50.00) Transferrin (204.0-354.0) mg/dL Assessment and Plan Assessment: 1. Acute exacerbation chronic combined systolic and diastolic congestive heart failure 2. Left pleural effusion measuring only 3.8 cm, chronic in nature 3. Acute influenza A infection 4. Moderate to severe pulmonary hypertension 5. Acute on chronic kidney disease 6. Insulin-dependent diabetes mellitus/diabetic neuropathy 7. Hypertension 8. Hyperlipidemia 9. Coronary artery disease with previous stent placements and urinary artery b ypass grafting 5 in 2009 Plan to continue with oxygen with plans to titrate of bleeding as needed; cardiology on board for diuretic therapy management; cardiology recommending to switch to oral diuretics; nephrology following for acute on chronic renal failure; we will continue to monitor strict HARLAN's, daily weights, renal function and electrolytes; continue to avoid nephrotoxins and hypotension -- Ultrasound of the chest completed which did not reveal any significant pleural effusion
[2022-04-13 20:16] LABS: Glucose,Whole Blood 136 mg/dL (70-110)
[2022-04-13] MEDS: ATORVASTATIN 20 MG TAB PO SCH (21:41)
[2022-04-14 06:13] LABS: Glucose,Whole Blood 157 mg/dL (70-110)
[2022-04-14] MEDS: carvediloL 12.5 MG TAB PO SCH ×2 (06:54→09:59)
[2022-04-14] MEDS: INSULIN ASPART (NovoLOG) 100 UNIT/ML VIAL SQ SCH ×4 (06:54→21:31)
[2022-04-14 09:04] LABS: Calcium 7.7 mg/dL (8.4-10.2); Magnesium 2.1 mg/dL (1.6-2.3); Potassium 3.5 mmol/L (3.5-5.1)
[2022-04-14] MEDS: PANTOPRAZOLE 40 MG/10 ML VIAL IVP SCH (09:59)
[2022-04-14] MEDS: CLOPIDOGREL 75 MG TAB PO SCH (09:59)
[2022-04-14] MEDS: SODIUM BICARBONATE TAB 650 MG TAB PO SCH ×3 (09:59→21:30)
[2022-04-14] MEDS: ASPIRIN 81 MG PO SCH (09:59)
[2022-04-14] MEDS: ISOSORBIDE MONONITRATE ER 30 MG TAB.ER.24H PO SCH (09:59)
[2022-04-14] MEDS: FUROSEMIDE 80 MG TAB PO SCH (09:59)
[2022-04-14] MEDS: hydrALAZINE HCL 25 MG TAB PO SCH (09:59)
[2022-04-14] MEDS: SODIUM FERRIC GLUCONAT-SUCROSE 125 MG in SODIUM CHLORIDE 0.9% 100 ML IVPB SCH (10:01)
[2022-04-14 11:46] LABS: Glucose,Whole Blood 205 mg/dL (70-110)
--- NOTE | 2022-04-14 11:57 | P.PN ---
Subjective Patient is seen in follow-up for chronic kidney disease. Creatinine stable at 5.6. Awake and alert. Has been voiding. Has external catheter. Denies chest pain or shortness of breath. Oral intake gradually improving. Currently on nasal cannula. Vital signs are stable. General: Awake. No acute distress. HEENT: Head exam is unremarkable. LUNGS: Breath sounds decreased. HEART: Rate and Rhythm are regular. ABDOMEN: Soft, no distention. EXTREMITITES: No edema. Objective - Vital Signs Vital signs: Vital Signs Temp 98.1 F 04/14/22 04:00 Pulse 72 04/14/22 04:00 Resp 18 04/14/22 04:00 BP 165/79 04/14/22 04:00 Pulse Ox 97 04/14/22 11:20 FiO2 Intake & Output 04/13/22 04/14/22 04/14/22 18:59 06:59 18:59 Intake Total 680 180 Output Total 550 300 Balance 130 -300 180 Weight 99 kg Intake: Intake, IV Titration 100 Amount Sodium Ferric Gluconat- 100 Sucrose 125 mg In Sodium Chloride 0.9% 100 ml @ 100 mls/hr IVPB DAILY [facility] Rx#:[id number] Oral 580 180 Output: Urine 550 300 Other: Voiding Method External Catheter External Catheter # Voids 1 - Labs CBC & Chem 7: 04/12/22 09:34 04/14/22 06:22 Labs: Abnormal Lab Results - Last 24 Hours (Table) 04/13/22 04/13/22 04/13/22 Range/Units 12:00 16:46 20:10 Chloride (98-107) mmol/L Carbon Dioxide (22-30) mmol/L BUN (9-20) mg/dL Creatinine (0.66-1.25) mg/dL Glucose (74-99) mg/dL POC Glucose (mg/dL) 188 H 182 H 136 H (70-110) mg/dL Calcium (8.4-10.2) mg/dL Phosphorus (2.5-4.5) mg/dL 04/14/22 04/14/22 04/14/22 Range/Units 06:10 06:22 11:45 Chloride 109 H (98-107) mmol/L Carbon Dioxide 20 L (22-30) mmol/L BUN 64 H (9-20) mg/dL Creatinine 5.60 H (0.66-1.25) mg/dL Glucose 140 H (74-99) mg/dL POC Glucose (mg/dL) 157 H 205 H (70-110) mg/dL Calcium 7.7 L (8.4-10.2) mg/dL Phosphorus 6.0 H (2.5-4.5) mg/dL Assessment and Plan Plan: Assessment: 1. CARMEN, mostly prerenal, due to infection. Cr stable at 5.6 today. 2. 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 Baseline creatinine 4-4.5. 3. Infuenza A infection. 4. Chronic systolic CHF with EF 35-40%, moderate to severe TR/pulm HTN. 5. CAD s/p cardiac stenting. 7. Mild hypernatremia due to lack of free water intake. Improved with D5W. 8. Metabolic acidosis due to CKD. On oral bicarbonate. 9. HTN with CKD. 10. Anemia of chronic kidney disease. Iron deficiency noted. 11. Hyperphosphatemia secondary to chronic kidney disease. Plan: Maintain IV iron. Hold Lasix. Avoid nephrotoxins. Interested in doing PD in future. Continue to assess need for NEWS LIBRARY DIRECTOR daily. Patient wants to hold off on starting dialysis at this time. Continue to address daily. Add PhosLo with meals. Increase dose of hydralazine to 100 mg 3 times a day.
[2022-04-14] MEDS: CALCIUM ACETATE 667 MG TAB PO SCH ×2 (12:11→17:45)
[2022-04-14] MEDS: OSELTAMIVIR 60 MG/10 ML ORAL SYRINGE PO SCH (12:23)
--- NOTE | 2022-04-14 13:58 | P.PN ---
Subjective Progress Note Date: 04/14/22 On 04/14/2022, the patient remains on 2 L of oxygen by nasal cannula. He is infected with was a. Less short of breath less bronchospastic and less wheezy. Renal function is stable and a creatinine of 5.6. He is awake and alert and is still voiding. No chest pain. No fever. No chills. No altered mentation. His sodium levels at 141, bicarb is at 20 with a BUN of 64 and a creatinine of 5.6. Glucose at 140. The patient is chronic systolic heart failure with an ejection fraction of 35-40% and moderate to severe degree of pulmonary hypertension. Is known to have coronary artery disease with previous coronary stenting, stage V chronic kidney disease, hypertension, chronic anemia Objective - Vital Signs Vital signs: Vital Signs Temp 97.6 F 04/14/22 12:00 Pulse 65 04/14/22 12:53 Resp 14 04/14/22 12:53 BP 124/73 04/14/22 12:00 Pulse Ox 93 L 04/14/22 12:00 FiO2 Intake & Output 04/13/22 04/14/22 04/14/22 18:59 06:59 18:59 Intake Total 680 880 Output Total 550 300 Balance 130 -300 880 Weight 99 kg Intake: Intake, IV Titration 100 100 Amount Sodium Ferric Gluconat- 100 100 Sucrose 125 mg In Sodium Chloride 0.9% 100 ml @ 100 mls/hr IVPB DAILY [facility] Rx#:[id number] Oral 580 780 Output: Urine 550 300 Other: Voiding Method External Catheter External Catheter External Catheter # Voids 1 - Exam No acute distress, oriented 3. Currently on 2 L. No respiratory distress. HEENT examination is grossly unremarkable. Neck supple. Full range of motion. No adenopathy thyromegaly or neck vein distention. Cardiovascular examination reveals regular rhythm rate. S1-S2 normal. No S3 or S4. No discernible murmur noted. Heart rate is 69 bpm. Lungs reveal scattered basilar crackles. No wheezes. No rhonchi. Breath sounds equal bilaterally. Saturations are 96% on 2 L. Abdomen soft bowel sounds are heard. No masses or tenderness. Extremities are intact. No cyanosis clubbing or edema. Skin is without rash or lesion. Neurologic examination is brief but nonfocal. - Labs CBC & Chem 7: 04/12/22 09:34 04/14/22 06:22 Labs: Abnormal Lab Results - Last 24 Hours (Table) 04/13/22 04/13/22 04/14/22 Range/Units 16:46 20:10 06:10 Chloride (98-107) mmol/L Carbon Dioxide (22-30) mmol/L BUN (9-20) mg/dL Creatinine (0.66-1.25) mg/dL Glucose (74-99) mg/dL POC Glucose (mg/dL) 182 H 136 H 157 H (70-110) mg/dL Calcium (8.4-10.2) mg/dL Phosphorus (2.5-4.5) mg/dL 04/14/22 04/14/22 Range/Units 06:22 11:45 Chloride 109 H (98-107) mmol/L Carbon Dioxide 20 L (22-30) mmol/L BUN 64 H (9-20) mg/dL Creatinine 5.60 H (0.66-1.25) mg/dL Glucose 140 H (74-99) mg/dL POC Glucose (mg/dL) 205 H (70-110) mg/dL Calcium 7.7 L (8.4-10.2) mg/dL Phosphorus 6.0 H (2.5-4.5) mg/dL Assessment and Plan Plan: Acute exacerbation chronic combined systolic and diastolic congestive heart failure.there is also a component of fluid overload in the setting of chronic stage 5 kidney disease. The patient continues to urinate him make adequate urine output. Left pleural effusion measuring only 3.8 cm, chronic in nature. Acute influenza A infection.patient is currently completing course of Tamiflu CHF with chronic systolic heart failure with ejection fraction of 30-35% and Moderate to severe pulmonary hypertension. acute hypoxic respiratory failure secondary to above currently on 2 L Acute on chronic kidney disease. History of chronic kidney disease. Insulin-dependent diabetes mellitus. Hypertension. Coronary artery disease with previous stent placements and CABG 5 in 2009. Diabetic neuropathy. Hyperlipidemia. Nonsmoker. Plan: continue same treatment Complete the course of Tamiflu Possible hemodialysis in the future Monitor electrolytes Bingo Attendant on the case Wean down FiO2 as tolerated to maintain a saturation above 90%
--- NOTE | 2022-04-14 14:59 | P.PN ---
Subjective Progress Note Date: 04/14/22 H&P Date: 04/11/22 72-year-old male with past history of coronary artery disease status post bypass, diabetes, congestive heart failure, chronic kidney disease who presents emergency Department with altered mental status and weakness. is at bedside and provides a history. She states that they went out of state on vacation to visit family members. The patient started having a cough on Thursday. They drove home today and throughout the drive the patient became more dizzy, weak and unresponsive. She states that she attempted to get the patient out of the car at one of the rest stops and the patient couldn't even ambulate. He was complaining that he was extremely lightheaded and nauseated. He did have a couple small episodes of emesis. The denies that the patient was around any sick contacts. No recorded fevers. The patient denies any chest pain or shortness of breath. Nonproductive cough. He denies any abdominal pain. No diarrhea. Denies any black or bloody stools. No history of stroke. Denies ataxia. No speech deficits. Patient overly fatigued causing alteration in his mental status. 04/14/2022 shortness of breath improving, completing Tamiflu, currently maintaining O2 sats in the 90s on 2 L nasal cannula . Afebrile iron deficient, receiving IV ferritin. Bicarb 20 ,continues on oral sodium bicarb. Creatinine 5.6. Throughout the night , into the beam dyer recessed vat hours , hypertensive.Denies chest pain, palpitations. Objective - Vital Signs Vital signs: Vital Signs Temp 97.6 F 04/14/22 12:00 Pulse 65 04/14/22 12:53 Resp 14 04/14/22 12:53 BP 124/73 04/14/22 12:00 Pulse Ox 93 L 04/14/22 12:00 FiO2 Intake & Output 04/13/22 04/14/22 04/14/22 18:59 06:59 18:59 Intake Total 680 880 Output Total 550 300 Balance 130 -300 880 Weight 99 kg Intake: Intake, IV Titration 100 100 Amount Sodium Ferric Gluconat- 100 100 Sucrose 125 mg In Sodium Chloride 0.9% 100 ml @ 100 mls/hr IVPB DAILY [facility] Rx#:[id number] Oral 580 780 Output: Urine 550 300 Other: Voiding Method External Catheter External Catheter External Catheter # Voids 1 - Exam GENERAL: Alert and oriented 3, sitting up in bed, no acute distress HEAD: Normocephalic. EYES: Normal reaction of pupils, equal size. NOSE: Clear with pink turbinates. THROAT: No erythema or exudates. NECK: No masses, no JVD. CHEST: No chest wall deformity. LUNGS: Equal air entry with crackles in the bases. CVS: S1 and S2 normal with no audible murmur, regular rhythm. ABDOMEN: No hepatosplenomegaly, normal bowel sounds, no guarding or rigidity. EXTREMITIES: Chronic venous stasis of lower extremities, 1-2+ peripheral edema. Peripheral pulses are intact. SKIN: Warm and dry, No rashes CENTRAL NERVOUS SYSTEM: No focal deficits, tone is normal in all 4 extremities. - Labs CBC & Chem 7: 04/12/22 09:34 04/14/22 06:22 Labs: Abnormal Lab Results - Last 24 Hours (Table) 04/13/22 04/13/22 04/14/22 Range/Units 16:46 20:10 06:10 Chloride (98-107) mmol/L Carbon Dioxide (22-30) mmol/L BUN (9-20) mg/dL Creatinine (0.66-1.25) mg/dL Glucose (74-99) mg/dL POC Glucose (mg/dL) 182 H 136 H 157 H (70-110) mg/dL Calcium (8.4-10.2) mg/dL Phosphorus (2.5-4.5) mg/dL 04/14/22 04/14/22 Range/Units 06:22 11:45 Chloride 109 H (98-107) mmol/L Carbon Dioxide 20 L (22-30) mmol/L BUN 64 H (9-20) mg/dL Creatinine 5.60 H (0.66-1.25) mg/dL Glucose 140 H (74-99) mg/dL POC Glucose (mg/dL) 205 H (70-110) mg/dL Calcium 7.7 L (8.4-10.2) mg/dL Phosphorus 6.0 H (2.5-4.5) mg/dL Assessment and Plan Assessment: (1) Congestive heart failure, acute on chronic combined systolic and diastolic Current Visit: Yes Status: Acute Code(s): I50.9 - HEART FAILURE, UNSPECIFIED SNOMED Code(s): 31663799 (2) Encephalopathy acute, metabolic secondary to the above Current Visit: Yes Status: Acute Code(s): G93.40 - ENCEPHALOPATHY, UNSPECIFIED SNOMED Code(s): 55564115 (3) Influenza A, acute Current Visit: Yes Status: Acute Code(s): J10.1 - FLU DUE TO OTH IDENT INFLUENZA VIRUS W OTH RESP MANIFEST SNOMED Code(s): 916637206 (4) Nausea and vomiting Current Visit: Yes Status: Acute Code(s): R11.2 - NAUSEA WITH VOMITING, UNSPECIFIED SNOMED Code(s): 65405235 (5) Renal failure (ARF), acute on chronic, stage V. Acute secondary to prerenal and infection. Chronic secondary to diabetic kidney disease and nephrosclerosis. Baseline 4-4.5. Current Visit: Yes Status: Acute Code(s): N17.9 - ACUTE KIDNEY FAILURE, UNSPECIFIED; N18.9 - CHRONIC KIDNEY DISEASE, UNSPECIFIED SNOMED Code(s): 879245988 (6) acute hypoxic respiratory failure secondary to all the above (7) diabetes mellitus, insulin-dependent (8) diabetic neuropathy (9) CAD, history of CABG and stents (10) hypertension (11) hyperlipidemia (12) anemia of chronic kidney disease, iron deficient (13) hyperphosphatemia secondary to CKD (14) metabolic acidosis secondary to CKD Plan: Continue on current medication regime ,monitoring and symptomatic treatment. Continue Tamiflu. FiO2 titration in progress. Diuretics remain on hold, PD in the future-continues being discussed, nephrology following. The impression and plan of care has been dictated as directed. : I performed a history and examination of this patient, discussed the same with the dictator. I agree with the dictator's note ,documented as a scribe. Any additional findings or plans will be noted.
[2022-04-14 16:39] LABS: Glucose,Whole Blood 162 mg/dL (70-110)
[2022-04-14] MEDS: hydrALAZINE HCL 50 MG TAB PO SCH ×2 (17:09→21:30)
[2022-04-14 20:50] LABS: Glucose,Whole Blood 156 mg/dL (70-110)
[2022-04-14] MEDS: ATORVASTATIN 20 MG TAB PO SCH (21:30)
[2022-04-15 06:17] LABS: Glucose,Whole Blood 143 mg/dL (70-110)
[2022-04-15] MEDS: INSULIN ASPART (NovoLOG) 100 UNIT/ML VIAL SQ SCH ×4 (06:18→21:14)
[2022-04-15] MEDS: CALCIUM ACETATE 667 MG TAB PO SCH ×3 (06:43→17:37)
[2022-04-15] MEDS: carvediloL 12.5 MG TAB PO SCH ×2 (06:43→17:37)
[2022-04-15] MEDS: ISOSORBIDE MONONITRATE ER 30 MG TAB.ER.24H PO SCH (09:15)
[2022-04-15] MEDS: PANTOPRAZOLE 40 MG/10 ML VIAL IVP SCH (09:15)
[2022-04-15] MEDS: SODIUM FERRIC GLUCONAT-SUCROSE 125 MG in SODIUM CHLORIDE 0.9% 100 ML IVPB SCH (09:15)
[2022-04-15] MEDS: hydrALAZINE HCL 50 MG TAB PO SCH ×3 (09:15→21:14)
[2022-04-15] MEDS: CLOPIDOGREL 75 MG TAB PO SCH (09:16)
[2022-04-15] MEDS: ASPIRIN 81 MG PO SCH (09:16)
[2022-04-15] MEDS: SODIUM BICARBONATE TAB 650 MG TAB PO SCH ×3 (09:16→21:14)
[2022-04-15 10:28] LABS: Calcium 8.2 mg/dL (8.4-10.2); Magnesium 2.2 mg/dL (1.6-2.3); Potassium 3.5 mmol/L (3.5-5.1)
[2022-04-15] MEDS: OSELTAMIVIR 60 MG/10 ML ORAL SYRINGE PO SCH (10:44)
--- NOTE | 2022-04-15 11:23 | P.PN ---
Subjective Patient is seen for follow-up for chronic kidney disease. His renal function has been stable with serum creatinine at about 5.5-5.6 mg/dL. Purdum patient denies any significant shortness of breath. No complaints of nausea vomiting or diarrhea. Plans for discharge today. Objective - Vital Signs Vital signs: Vital Signs Temp 98.1 F 04/15/22 08:00 Pulse 65 04/15/22 08:00 Resp 14 04/15/22 08:00 BP 160/79 04/15/22 08:00 Pulse Ox 95 04/15/22 08:00 FiO2 Intake & Output 04/14/22 04/15/22 04/15/22 18:59 06:59 18:59 Intake Total 1060 240 Output Total 775 Balance 1060 -775 240 Intake: Intake, IV Titration 100 Amount Sodium Ferric Gluconat- 100 Sucrose 125 mg In Sodium Chloride 0.9% 100 ml @ 100 mls/hr IVPB DAILY [facility] Rx#:[id number] Oral 960 240 Output: Urine 775 Other: Voiding Method External Catheter External Catheter External Catheter # Voids 1 - Exam Patient is awake, comfortable, no acute distress Examination of the heart S1 and S2 Examination lungs decreased breath sounds at the bases Abdomen is soft nontender Exertion lower extremity shows chronic skin changes edema 1+ bilaterally FORENSIC SCIENCE TECHNICIAN exam grossly intact - Labs CBC & Chem 7: 04/12/22 09:34 04/15/22 09:40 Labs: Abnormal Lab Results - Last 24 Hours (Table) 04/14/22 04/14/22 04/14/22 Range/Units 11:45 16:37 20:48 Chloride (98-107) mmol/L Carbon Dioxide (22-30) mmol/L BUN (9-20) mg/dL Creatinine (0.66-1.25) mg/dL Glucose (74-99) mg/dL POC Glucose (mg/dL) 205 H 162 H 156 H (70-110) mg/dL Calcium (8.4-10.2) mg/dL 04/15/22 04/15/22 Range/Units 06:15 09:40 Chloride 110 H (98-107) mmol/L Carbon Dioxide 19 L (22-30) mmol/L BUN 62 H (9-20) mg/dL Creatinine 5.60 H (0.66-1.25) mg/dL Glucose 165 H (74-99) mg/dL POC Glucose (mg/dL) 143 H (70-110) mg/dL Calcium 8.2 L (8.4-10.2) mg/dL Assessment and Plan Assessment: 1. CARMEN, mostly prerenal, due to infection. Cr stable at 5.6 today. 2. 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 Baseline creatinine 4-4.5. 3. Infuenza A infection. 4. Chronic systolic CHF with EF 35-40%, moderate to severe TR/pulm HTN. 5. CAD s/p cardiac stenting. 7. Mild hypernatremia due to lack of free water intake. Improved with D5W. 8. Metabolic acidosis due to CKD. On oral bicarbonate. 9. HTN with CKD. 10. Anemia of chronic kidney disease. Iron deficiency noted. 11. Hyperphosphatemia secondary to chronic kidney disease. Plan: Follow-up in the office in one week Resume Lasix 60 mg daily for about 2-3 days and then twice a day after that. Trace pastor will be seen for evaluation for starting renal replacement therapy as outpatient.
[2022-04-15 11:44] LABS: Glucose,Whole Blood 218 mg/dL (70-110)
--- NOTE | 2022-04-15 12:07 | P.DS ---
Providers Date of admission: 04/11/22 05:22 Expected date of discharge: 04/15/22 Attending physician: Sahil Carmona Consults: 04/11/22 05:22 Consult Physician Urgent Consulting Provider: [facility] Consult Reason/Comments: pleural effusion Do you want consulting provider notified?: Yes Consult Physician Urgent Consulting Provider: [facility] Consult Reason/Comments: aechf Do you want consulting provider notified?: Yes 04/11/22 05:25 Consult Physician Urgent Consulting Provider: Ganga Orosco Consult Reason/Comments: hubert/ckd Do you want consulting provider notified?: Yes Primary care physician: Sahilkimberly Carmona [facility] Course: Final Diagnoses: (1) Congestive heart failure, acute on chronic combined systolic and diastolic Current Visit: Yes Status: Acute Code(s): I50.9 - HEART FAILURE, UNSPECIFIED SNOMED Code(s): 22359830 (2) Encephalopathy acute, metabolic secondary to the above Current Visit: Yes Status: Acute Code(s): G93.40 - ENCEPHALOPATHY, UNSPECIFIED SNOMED Code(s): 08189252 (3) Influenza A, acute Current Visit: Yes Status: Acute Code(s): J10.1 - FLU DUE TO OTH IDENT INFLUENZA VIRUS W OTH RESP MANIFEST SNOMED Code(s): 633230878 (4) Nausea and vomiting Current Visit: Yes Status: Acute Code(s): R11.2 - NAUSEA WITH VOMITING, UNSPECIFIED SNOMED Code(s): 77335189 (5) Renal failure (ARF), acute on chronic, stage V. Acute secondary to prerenal and infection. Chronic secondary to diabetic kidney disease and nephrosclerosis. Baseline 4-4.5. 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 is at bedside and provides a history. She states that they went out of state on vacation to visit family members. The patient started having a cough on Thursday. They drove home today and throughout the drive the patient became more dizzy, weak and unresponsive. She states that she attempted to get the patient out of the car at one of the rest stops and the patient couldn't even ambulate. He was complaining that he was extremely lightheaded and nauseated. He did have a couple small episodes of emesis. The denies that the patient was around any sick contacts. No recorded fevers. The patient denies any chest pain or shortness of breath. Nonproductive cough. He denies any abdominal pain. No diarrhea. Denies any black or bloody stools. No history of stroke. Denies ataxia. No speech deficits. Patient overly fatigued causing alteration in his mental status. 04/14/2022 shortness of breath improving, completing Tamiflu, currently maintaining O2 sats in the 90s on 2 L nasal cannula . Afebrile iron deficient, receiving IV ferritin. Bicarb 20 ,continues on oral sodium bicarb. Creatinine 5.6. Throughout the night , into the continuous pillowcase cutter hours , hypertensive.Denies chest pain, palpitations. Completed Tamiflu. Oxygen has been weaned off and maintaining O2 sats in the mid 90s on room air. O2 sat on room air after ambulation reported at 95%. Denies any increasing shortness of breath. Denies chest pain, palpitations. Denies nausea vomiting or diarrhea. Denies abdominal pain. Renal function stable, serum creatinine 5.5-5.6. Significant clinical improvement. Patient will be discharged home today in a stable condition with guarded prognosis. Per nephrology, resume Lasix 60 mg daily for about 2-3 days and then twice a day after that. Patient will be seen for evaluation for starting renal replacement therapy as outpatient. The impression and plan of care has been dictated as directed. : I performed a history and examination of this patient, discussed the same with the dictator. I agree with the dictator's note ,documented as a scribe. Any additional findings or plans will be noted. Patient Condition at Discharge: Stable Plan - Discharge Summary Discharge Rx Participant: No New Discharge Prescriptions: New Sodium Bicarbonate Tab 650 mg PO TID tab Furosemide [Lasix] 60 mg PO DIRECTED #171 tab hydrALAZINE HCL [Apresoline] 100 mg PO TID #180 tab Calcium Acetate [PhosLo] 667 mg PO TID-W/MEALS #0 tab Continue Famotidine [Pepcid] 20 mg PO DAILY Aspirin EC [Ecotrin Low Dose] 81 mg PO DAILY Atorvastatin [Lipitor] 20 mg PO HS Clopidogrel [Plavix] 75 mg PO DAILY #90 tab carvediloL [Coreg] 25 mg PO BID Nitroglycerin Sl Tabs [Nitrostat] 0.4 mg PO Q5M PRN PRN Reason: Chest Pain Ergocalciferol [Vitamin D2 (1250 Mcg = 11987 Iu)] 1,250 mcg PO KEATING Ferrous Sulfate [Feosol] 325 mg PO DAILY Isosorbide Mononitrate [Isosorbide Mononitrate ER] 30 mg PO DAILY Insulin Lispro [humaLOG Kwikpen] 10 units SQ AC-BID@1200,1800 INSULIN LISPRO (humaLOG) [humaLOG] 18 units SQ AC-BRKFST Insulin Glargine,Hum.rec.anlog [Lantus Solostar Pen] 30 unit SQ DAILY Discontinued allopurinoL [Zyloprim] 100 mg PO BID hydrALAZINE HCL [Apresoline] 50 mg PO TID #90 tab Furosemide [Lasix] 80 mg PO BID #1 tablet lisinopriL [Zestril] 2.5 mg PO DAILY Potassium Chloride ER [K-Dur 20] 20 meq PO TID metOLazone [Zaroxolyn] 5 mg PO DAILY PRN PRN Reason: Edema No Action calcitrioL [Calcitriol] 0.25 mg PO MOTUWETHFR Discharge Medication List Aspirin EC [Ecotrin Low Dose] 81 mg PO DAILY 10/27/13 [History] Famotidine [Pepcid] 20 mg PO DAILY 10/27/13 [History] Atorvastatin [Lipitor] 20 mg PO HS 12/30/16 [History] Clopidogrel [Plavix] 75 mg PO DAILY #90 tab 07/15/17 [Rx] Nitroglycerin Sl Tabs [Nitrostat] 0.4 mg PO Q5M PRN 07/18/19 [History] carvediloL [Coreg] 25 mg PO BID 07/18/19 [History] Ergocalciferol [Vitamin D2 (1250 Mcg = 71702 Iu)] 1,250 mcg PO KEATING 04/11/22 [History] Ferrous Sulfate [Feosol] 325 mg PO DAILY 04/11/22 [History] INSULIN LISPRO (humaLOG) [humaLOG] 18 units SQ AC-BRKFST 04/11/22 [History] Insulin Glargine,Hum.rec.anlog [Lantus Solostar Pen] 30 unit SQ DAILY 04/11/22 [History] Insulin Lispro [humaLOG Kwikpen] 10 units SQ AC-BID@1200,1800 04/11/22 [History] Isosorbide Mononitrate [Isosorbide Mononitrate ER] 30 mg PO DAILY 04/11/22 [History] calcitrioL [Calcitriol] 0.25 mg PO MOTUWETHFR 04/11/22 [History] Calcium Acetate [PhosLo] 667 mg PO TID-W/MEALS #0 tab 04/15/22 [Rx] Furosemide [Lasix] 60 mg PO DIRECTED #171 tab 04/15/22 [Rx] Sodium Bicarbonate Tab 650 mg PO TID tab 04/15/22 [Rx] hydrALAZINE HCL [Apresoline] 100 mg PO TID #180 tab 04/15/22 [Rx] Follow up Appointment(s)/Referral(s): Sahil Carmona DO [Primary Care Provider] - 1 Week Ganga Orosco DO [STAFF PHYSICIAN] - 1 Week Ambulatory/Diagnostic Orders: Complete Blood Count w/diff [LAB.AMB] Time Frame: 3 Days, Location: None Selected Activity/Diet/Wound Care/Special Instructions: O2 sat on room air after ambulation.. Final DC recommendations/diuretics as per nephrology.
--- NOTE | 2022-04-15 14:51 | P.PN ---
Subjective Progress Note Date: 04/15/22 The patient is seen today 04/15/2022 in follow-up on the selective care unit. He is currently sitting up in a chair at the bedside. Awake and alert in no acute distress. He is maintaining O2 saturations in the mid 90s on room air. Afebrile. Sodium 140. Potassium 3.5. Bicarb 19. BUN 62. Creatinine 5.60. Glucose 165. Nephrology is following. Objective - Vital Signs Vital signs: Vital Signs Temp 98.2 F 04/15/22 12:00 Pulse 72 04/15/22 14:00 Resp 16 04/15/22 14:00 BP 143/70 04/15/22 12:00 Pulse Ox 94 L 04/15/22 12:00 FiO2 Intake & Output 04/14/22 04/15/22 04/15/22 18:59 06:59 18:59 Intake Total 1060 540 Output Total 775 Balance 1060 -775 540 Intake: Intake, IV Titration 100 100 Amount Sodium Ferric Gluconat- 100 100 Sucrose 125 mg In Sodium Chloride 0.9% 100 ml @ 100 mls/hr IVPB DAILY [facility] Rx#:[id number] Oral 960 440 Output: Urine 775 Other: Voiding Method External Catheter External Catheter Toilet Urinal # Voids 1 - Exam GENERAL EXAM: Alert, 72-year-old male, on room air, up in a chair at the bedside, comfortable in no apparent distress. HEAD: Normocephalic. EYES: Normal reaction of pupils, equal size. NOSE: Clear with pink turbinates. THROAT: No erythema or exudates. NECK: No masses, no JVD. CHEST: No chest wall deformity. LUNGS: Equal air entry with no crackles, wheeze, rhonchi or dullness. CVS: S1 and S2 normal with no audible murmur, regular rhythm. ABDOMEN: No hepatosplenomegaly, normal bowel sounds, no guarding or rigidity. SPINE: No scoliosis or deformity SKIN: No rashes CENTRAL NERVOUS SYSTEM: No focal deficits, tone is normal in all 4 extremities. EXTREMITIES: There is no peripheral edema. No clubbing, no cyanosis. Periphe ral pulses are intact. - Labs CBC & Chem 7: 04/12/22 09:34 04/15/22 09:40 Labs: Abnormal Lab Results - Last 24 Hours (Table) 04/14/22 04/14/22 04/15/22 Range/Units 16:37 20:48 06:15 Chloride (98-107) mmol/L Carbon Dioxide (22-30) mmol/L BUN (9-20) mg/dL Creatinine (0.66-1.25) mg/dL Glucose (74-99) mg/dL POC Glucose (mg/dL) 162 H 156 H 143 H (70-110) mg/dL Calcium (8.4-10.2) mg/dL 04/15/22 04/15/22 Range/Units 09:40 11:41 Chloride 110 H (98-107) mmol/L Carbon Dioxide 19 L (22-30) mmol/L BUN 62 H (9-20) mg/dL Creatinine 5.60 H (0.66-1.25) mg/dL Glucose 165 H (74-99) mg/dL POC Glucose (mg/dL) 218 H (70-110) mg/dL Calcium 8.2 L (8.4-10.2) mg/dL Assessment and Plan Assessment: Acute exacerbation chronic combined systolic and diastolic congestive heart failure Left pleural effusion measuring only 3.8 cm, chronic in nature Acute influenza A infection and completed Tamiflu Moderate to severe pulmonary hypertension Acute on chronic kidney disease History of chronic kidney disease, stage V Insulin-dependent diabetes mellitus Hypertension Coronary artery disease with previous stent placements and urinary artery bypass grafting 5 in 2009 Diabetic neuropathy Hyperlipidemia Nonsmoker Plan: The patient was seen and evaluated Labs and medications reviewed Stable for discharge from the pulmonary standpoint The patient is declining renal replacement therapy at this time I have personally seen and examined the patient, performed the documentation and the assessment and plan as written. Number of minutes spent on the visit: 10 Joint evaluation that was done along with the nurse practitioner. Again the above-mentioned plan. Evaluation was done in more than 20 minutes is advancing 20. Clinically stable and the patient potentially can be discharged home today. He is currently on room air oxygen.
[2022-04-15 16:33] LABS: Glucose,Whole Blood 188 mg/dL (70-110)
[2022-04-15 20:41] LABS: Glucose,Whole Blood 155 mg/dL (70-110)
[2022-04-15] MEDS: ATORVASTATIN 20 MG TAB PO SCH (21:14)
[2022-04-15] MEDS: DEXTROSE 5% IN WATER 1,000 ML IV SCH (21:17)
[2022-04-16 06:22] LABS: Glucose,Whole Blood 166 mg/dL (70-110)
[2022-04-16] MEDS: CALCIUM ACETATE 667 MG TAB PO SCH ×3 (06:45→16:49)
[2022-04-16] MEDS: INSULIN ASPART (NovoLOG) 100 UNIT/ML VIAL SQ SCH ×2 (06:45→12:30)
[2022-04-16] MEDS: carvediloL 12.5 MG TAB PO SCH (06:45)
[2022-04-16] MEDS: CLOPIDOGREL 75 MG TAB PO SCH (09:45)
[2022-04-16] MEDS: ASPIRIN 81 MG PO SCH (09:45)
[2022-04-16] MEDS: ISOSORBIDE MONONITRATE ER 30 MG TAB.ER.24H PO SCH (09:46)
[2022-04-16] MEDS: SODIUM BICARBONATE TAB 650 MG TAB PO SCH ×2 (09:46→16:49)
[2022-04-16] MEDS: hydrALAZINE HCL 50 MG TAB PO SCH ×2 (09:46→16:49)
[2022-04-16] MEDS: PANTOPRAZOLE 40 MG/10 ML VIAL IVP SCH (09:46)
[2022-04-16] MEDS: SODIUM FERRIC GLUCONAT-SUCROSE 125 MG in SODIUM CHLORIDE 0.9% 100 ML IVPB SCH (09:47)
[2022-04-16 12:00] LABS: Glucose,Whole Blood 205 mg/dL (70-110)
[2022-04-16 13:50] VITALS: BP 138/73; PULSE 67; RESP 18; TEMP 98
--- NOTE | 2022-04-16 16:18 | P.PN ---
Subjective Progress Note Date: 04/16/22 The patient is seen today 04/15/2022 in follow-up on the selective care unit. He is currently sitting up in a chair at the bedside. Awake and alert in no acute distress. He is maintaining O2 saturations in the mid 90s on room air. Afebrile. Sodium 140. Potassium 3.5. Bicarb 19. BUN 62. Creatinine 5.60. Glucose 165. Nephrology is following. The patient is seen today 04/16/2022 in follow-up on the selective care unit. He is awake and alert in no acute distress. Currently sitting up in a chair at the bedside. No fever or chills. He is maintaining O2 saturations in the 90s on room air. Afebrile. Hemodynamically stable. Blood glucose 166. Objective - Vital Signs Vital signs: Vital Signs Temp 98.0 F 04/16/22 12:00 Pulse 67 04/16/22 12:00 Resp 18 04/16/22 12:00 BP 138/73 04/16/22 12:00 Pulse Ox 91 L 04/16/22 12:00 FiO2 Intake & Output 04/15/22 04/16/22 04/16/22 18:59 06:59 18:59 Intake Total 658 240 Output Total 225 100 Balance 433 -100 240 Weight 102.5 kg Intake: Intake, IV Titration 100 Amount Sodium Ferric Gluconat- 100 Sucrose 125 mg In Sodium Chloride 0.9% 100 ml @ 100 mls/hr IVPB DAILY [facility] Rx#:[id number] Oral 558 240 Output: Urine 225 100 Other: Voiding Method Toilet Urinal Urinal Urinal - Exam GENERAL EXAM: Alert, 72-year-old male, on room air, comfortable in no apparent distress. HEAD: Normocephalic. EYES: Normal reaction of pupils, equal size. NOSE: Clear with pink turbinates. THROAT: No erythema or exudates. NECK: No masses, no JVD. CHEST: No chest wall deformity. LUNGS: Equal air entry with no crackles, wheeze, rhonchi or dullness. CVS: S1 and S2 normal with no audible murmur, regular rhythm. ABDOMEN: No hepatosplenomegaly, normal bowel sounds, no guarding or rigidity. SPINE: No scoliosis or deformity SKIN: No rashes CENTRAL NERVOUS SYSTEM: No focal deficits, tone is normal in all 4 extremities. EXTREMITIES: There is no peripheral edema. No clubbing, no cyanosis. Peripheral pulses are intact. - Labs CBC & Chem 7: 04/12/22 09:34 04/15/22 09:40 Labs: Abnormal Lab Results - Last 24 Hours (Table) 04/15/22 04/15/22 04/16/22 Range/Units 16:31 20:40 06:21 POC Glucose (mg/dL) 188 H 155 H 166 H (70-110) mg/dL 04/16/22 Range/Units 11:53 POC Glucose (mg/dL) 205 H (70-110) mg/dL Assessment and Plan Assessment: Acute exacerbation chronic combined systolic and diastolic congestive heart failure Left pleural effusion measuring only 3.8 cm, chronic in nature Acute influenza A infection and completed Tamiflu Moderate to severe pulmonary hypertension Acute on chronic kidney disease History of chronic kidney disease, stage V Insulin-dependent diabetes mellitus Hypertension Coronary artery disease with previous stent placements and urinary artery bypass grafting 5 in 2009 Diabetic neuropathy Hyperlipidemia Nonsmoker Plan: The patient was seen and evaluated Stable and on room air Cleared for discharge from the pulmonary standpoint I have personally seen and examined the patient, performed the documentation and the assessment and plan as written. Number of minutes spent on the visit: 10 This is a joint evaluation that was done along with ROB[employer] MECH[employer]IC. The patient was seen and evaluated. I reviewed the above-mentioned plan. His evaluation was done in more than 10 minutes. Again to the above-mentioned evaluation, information and planning.
--- NOTE | 2022-04-16 16:28 | P.PN ---
Subjective Patient is seen for follow-up for chronic kidney disease. His renal function has been stable with serum creatinine at about 5.5-5.6 mg/dL. Patient denies any significant shortness of breath. No complaints of nausea vomiting or diarrhea. Plans for discharge today. Discussed with that jennyll see the pt for f/u in 2 weeks at the office and start HD as out patient. Objective - Vital Signs Vital signs: Vital Signs Temp 98.0 F 04/16/22 12:00 Pulse 67 04/16/22 12:00 Resp 18 04/16/22 12:00 BP 138/73 04/16/22 12:00 Pulse Ox 91 L 04/16/22 12:00 FiO2 Intake & Output 04/15/22 04/16/22 04/16/22 18:59 06:59 18:59 Intake Total 658 240 Output Total 225 100 Balance 433 -100 240 Weight 102.5 kg Intake: Intake, IV Titration 100 Amount Sodium Ferric Gluconat- 100 Sucrose 125 mg In Sodium Chloride 0.9% 100 ml @ 100 mls/hr IVPB DAILY [facility] Rx#:[id number] Oral 558 240 Output: Urine 225 100 Other: Voiding Method Toilet Urinal Urinal Urinal - Exam Patient is awake, comfortable, no acute distress Examination of the heart S1 and S2 Examination lungs decreased breath sounds at the bases Abdomen is soft nontender Exertion lower extremity shows chronic skin changes edema 1+ bilaterally [employer]ACH[employer] exam grossly intact - Labs CBC & Chem 7: 04/12/22 09:34 04/15/22 09:40 Labs: Abnormal Lab Results - Last 24 Hours (Table) 04/15/22 04/15/22 04/16/22 Range/Units 16:31 20:40 06:21 POC Glucose (mg/dL) 188 H 155 H 166 H (70-110) mg/dL 04/16/22 Range/Units 11:53 POC Glucose (mg/dL) 205 H (70-110) mg/dL Assessment and Plan Assessment: 1. CARMEN, mostly prerenal, due to infection. Cr stable at 5.6 today. 2. 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 Baseline creatinine 4-4.5. 3. Infuenza A infection. 4. Chronic systolic CHF with EF 35-40%, moderate to severe TR/pulm HTN. 5. CAD s/p cardiac stenting. 7. Mild hypernatremia due to lack of free water intake. Improved with D5W. 8. Metabolic acidosis due to CKD. On oral bicarbonate. 9. HTN with CKD. 10. Anemia of chronic kidney disease. Iron deficiency noted. 11. Hyperphosphatemia secondary to chronic kidney disease. Plan: Follow-up in the office in 1-2 week Resume Lasix 60 mg daily for about 2-3 days and then twice a day after that. Patient will be seen for evaluation for starting renal replacement therapy as outpatient.
== END 2022-04-16 17:10 | disposition home health service (06) | DRG 193 ==
LOC: EC 18:44 → 3SCARD 04-11 05:22
PROVIDERS: ADMIT Family Medicine; ATTEND Family Medicine
DX: J10.1 Influenza due to other identified influenza virus with other respiratory manifestations (principal); G93.41 Metabolic encephalopathy; J96.01 Acute respiratory failure with hypoxia; N18.6 End stage renal disease; I50.43 Acute on chronic combined systolic (congestive) and diastolic (congestive) heart failure; I13.2 Hypertensive heart and chronic kidney disease with heart failure and with stage 5 chronic kidney disease, or end stage renal disease; N17.9 Acute kidney failure, unspecified; E87.0 Hyperosmolality and hypernatremia; E87.20 Acidosis, unspecified; D63.1 Anemia in chronic kidney disease; E11.22 Type 2 diabetes mellitus with diabetic chronic kidney disease; E11.319 Type 2 diabetes mellitus with unspecified diabetic retinopathy without macular edema; E11.40 Type 2 diabetes mellitus with diabetic neuropathy, unspecified; D50.9 Iron deficiency anemia, unspecified; E78.5 Hyperlipidemia, unspecified; E83.39 Other disorders of phosphorus metabolism; I25.10 Atherosclerotic heart disease of native coronary artery without angina pectoris; Z20.822 Contact with and (suspected) exposure to COVID-19; I08.1 Rheumatic disorders of both mitral and tricuspid valves; I25.5 Ischemic cardiomyopathy; I27.20 Pulmonary hypertension, unspecified; E66.9 Obesity, unspecified; Z68.32 Body mass index [BMI] 32.0-32.9, adult; I44.0 Atrioventricular block, first degree; Z95.5 Presence of coronary angioplasty implant and graft; Z95.1 Presence of aortocoronary bypass graft; Z87.442 Personal history of urinary calculi; Z79.899 Other long term (current) drug therapy; Z79.82 Long term (current) use of aspirin; Z79.4 Long term (current) use of insulin; Z79.02 Long term (current) use of antithrombotics/antiplatelets; I25.2 Old myocardial infarction; Z28.310 Unvaccinated for COVID-19
CPT/HCPCS: 36415; 70450; 71045; 76604; 80048; 80053; 81001; 82728; 83036; 83540; 83550; 83605; 83735; 83880; 84100; 84484; 85025; 85610; 85730; 87502; 87635; 93005; 94760; 96374; 99285

== ENCOUNTER 2022-04-22 11:53 | Inpatient (IN) | payer MEDICARE ==
--- NOTE | 2022-04-22 13:13 | ED ---
General Adult HPI - General Chief complaint: Shortness of Breath Stated complaint: revisit - pneumonia, needs dialysis Time Seen by Provider: 04/22/22 12:15 Source: patient, family, RN notes reviewed, old records reviewed Mode of arrival: wheelchair Limitations: no limitations - History of Present Illness Initial comments: This is a 72-year-old male who presents emergency Department complaining of overwhelming fatigue and shortness of breath. Patient was in the hospital earlier this month for for 5 days for influenza a. According to the the p atient went home and steroids and breathing treatments. Patient states he went home and is not getting any better and in fact getting worse. He was told he had have dialysis but initially he refused but at this point time if he needs dialysis and states that he will take. Patient is states he is been having progressive kidney failure and recently he was told he had states 5 kidney failure. Patient denies any recent fever chills. Patient denies any cough. Patient does have edema of the legs but he doesn't think it's increased compared to baseline. Patient denies any chest pain or palpitations. Patient has nausea vomiting or diarrhea. - Related Data Home Medications Medication Instructions Recorded Confirmed Aspirin EC [Ecotrin Low Dose] 81 mg PO DAILY 10/27/13 04/11/22 Famotidine [Pepcid] 20 mg PO DAILY 10/27/13 04/11/22 Atorvastatin [Lipitor] 20 mg PO HS 12/30/16 04/11/22 Nitroglycerin Sl Tabs [Nitrostat] 0.4 mg PO Q5M PRN 07/18/19 04/11/22 carvediloL [Coreg] 25 mg PO BID 07/18/19 04/11/22 Ergocalciferol [Vitamin D2 (1250 1,250 mcg PO KEATING 04/11/22 04/11/22 Mcg = 49524 Iu)] Ferrous Sulfate [Feosol] 325 mg PO DAILY 04/11/22 04/11/22 INSULIN LISPRO (humaLOG) [humaLOG] 18 units SQ AC-BRKFST 04/11/22 04/11/22 Insulin Glargine,Hum.rec.anlog 30 unit SQ DAILY 04/11/22 04/11/22 [Lantus Solostar Pen] Insulin Lispro [humaLOG Kwikpen] 10 units SQ AC-BID@1200,1800 04/11/22 04/11/22 Isosorbide Mononitrate [Isosorbide 30 mg PO DAILY 04/11/22 04/11/22 Mononitrate ER] calcitrioL [Calcitriol] 0.25 mg PO MOTUWETHFR 04/11/22 04/11/22 Previous Rx's Medication Instructions Recorded Clopidogrel [Plavix] 75 mg PO DAILY #90 tab 07/15/17 Calcium Acetate [PhosLo] 667 mg PO TID-W/MEALS #0 tab 04/15/22 Furosemide [Lasix] 60 mg PO DIRECTED #171 tab 04/15/22 Sodium Bicarbonate Tab 650 mg PO TID tab 04/15/22 hydrALAZINE HCL [Apresoline] 100 mg PO TID #180 tab 04/15/22 Allergies Allergy/AdvReac Type Severity Reaction Status Date / Time No Known Allergies Allergy Verified 04/10/22 19:28 Review of Systems ROS Statement: Those systems with pertinent positive or pertinent negative responses have been documented in the HPI. ROS Other: All systems not noted in ROS Statement are negative. Past Medical History Past Medical History: Coronary Artery Disease (CAD), Chest Pain / Angina, Heart Failure, Diabetes Mellitus, Eye Disorder, GERD/Reflux, Hyperlipidemia, Hypertension, Myocardial Infarction ([place]), Pneumonia, Renal Disease Additional Past Medical History / Comment(s): IDDM type II, bilateral diabetic retinopathy, CKD stage III, nephrolithiasis, bronchitis, L pleural effusion, recently received 2 iron infusions for anemia. Last Myocardial Infarction Date:: 2009 History of Any Multi-Drug Resistant Organisms: None Reported Past Surgical History: Coronary Bypass/CABG, Heart Catheterization, Heart Catheterization With Stent Additional Past Surgical History / Comment(s): 2009 CABG 5 vessel, bilateral cataract removals/lens implants, oral surgery Past Anesthesia/Blood Transfusion Reactions: No Reported Reaction, Motion Sickness Date of Last Stent Placement:: 08/05/17 Past Psychological History: No Psychological Hx Reported Smoking Status: Never smoker - Past Family History Mother Family Medical History: CVA/TIA, Diabetes Mellitus Father Family Medical History: CVA/TIA, Myocardial Infarction ([place]) Additional Family Medical History / Comment(s): mother: htn, dm. General Exam - General Exam Comments Initial Comments: GENERAL: Patient is well-developed and well-nourished. Patient is nontoxic and well- hydrated and is in mild distress. Patient is extremely tired. When patient stopped speaking to me he lays down and goes to sleep immediately ENT: Neck is soft and supple. No significant lymphadenopathy is noted. Oropharynx is clear. Moist mucous membranes. Neck has full range of motion without eliciting any pain. EYES: The sclera were anicteric and conjunctiva were pink and moist. Extraocular movements were intact and pupils were equal round and reactive to light. Eyelids were unremarkable. PULMONARY: Patient has expiratory wheezing and left sided crackles in the bases. CARDIOVASCULAR: There is a regular rate and rhythm without any murmurs gallops or rubs. ABDOMEN: Soft and nontender with normal bowel sounds. SKIN: Skin is clear with no lesions or rashes and otherwise unremarkable. NEUROLOGIC: Patient is alert and oriented x3 but slow to respond to questions. Cranial nerves II through XII are grossly intact. Motor and sensory are also intact. Normal speech, volume and content. Symmetrical smile. MUSCULOSKELETAL: Normal extremities with adequate strength and full range of motion. 1+ edema bilaterally pain. LYMPHATICS: No significant lymphadenopathy is noted PSYCHIATRIC: Normal psychiatric evaluation. Limitations: no limitations Course Vital Signs 04/22/22 04/22/22 04/22/22 12:13 14:25 14:26 Temperature 98 F Pulse Rate 64 58 L Respiratory 22 20 20 Rate Blood Pressure 173/91 168/102 O2 Sat by Pulse 94 L 94 L Oximetry Medical Decision Making - Medical Decision Making EKG was interpreted by me. EKG shows sinus rhythm at 66 bpm TX interval 162 QRS is 136 Q-T intervals 454 QTC is 467. Patient's EKG shows no ST segment elevation or depression. Chest x-ray was interpreted by myself. Chest x-ray shows pleural effusion on the left along with some pulmonary edema. Patient did receive Lasix at this point time and 1 g Rocephin custody infiltrate could not be ruled out. I spoke with Dr. Mathew bryan wanted the patient admitted I did admit the patient I wrote admitting orders I consult nephrology - Lab Data Result diagrams: 04/22/22 13:27 04/22/22 13:27 Lab Results 04/22/22 04/22/22 04/22/22 Range/Units 13:27 13:27 13:27 WBC 14.9 H (3.8-10.6) k/uL RBC 3.39 L (4.30-5.90) m/uL Hgb 10.2 L (13.0-17.5) gm/dL Hct 32.5 L (39.0-53.0) % MCV 95.8 (80.0-100.0) fL MCH 30.0 (25.0-35.0) pg MCHC 31.3 (31.0-37.0) g/dL RDW 14.7 (11.5-15.5) % Plt Count 258 (150-450) k/uL MPV 9.2 Neutrophils % 91 % Lymphocytes % 4 % Monocytes % 3 % Eosinophils % 0 % Basophils % 1 % Neutrophils # 13.6 H (1.3-7.7) k/uL Lymphocytes # 0.7 L (1.0-4.8) k/uL Monocytes # 0.4 (0-1.0) k/uL Eosinophils # 0.0 (0-0.7) k/uL Basophils # 0.1 (0-0.2) k/uL PT 11.8 (9.0-12.0) sec INR 1.1 (<1.2) APTT 22.8 (22.0-30.0) sec Sodium 145 (137-145) mmol/L Potassium 3.4 L (3.5-5.1) mmol/L Chloride 110 H (98-107) mmol/L Carbon Dioxide 24 (22-30) mmol/L Anion Gap 11 mmol/L BUN 78 H (9-20) mg/dL Creatinine 5.86 H (0.66-1.25) mg/dL Est GFR (CKD-EPI)AfAm 10 (>60 ml/min/1.73 sqM) Est GFR (CKD-EPI)NonAf 9 (>60 ml/min/1.73 sqM) Glucose 220 H (74-99) mg/dL Plasma Lactic Acid Marcus (0.7-2.0) mmol/L Calcium 9.0 (8.4-10.2) mg/dL Magnesium 2.3 (1.6-2.3) mg/dL Total Bilirubin 0.8 (0.2-1.3) mg/dL AST 31 (17-59) U/L ALT 34 (4-49) U/L Alkaline Phosphatase 80 (38-126) U/L Troponin I (0.000-0.034) ng/mL NT-Pro-B Natriuret Pep pg/mL Total Protein 6.4 (6.3-8.2) g/dL Albumin 3.3 L (3.5-5.0) g/dL 04/22/22 04/22/22 04/22/22 Range/Units 13:27 13:27 13:27 WBC (3.8-10.6) k/uL RBC (4.30-5.90) m/uL Hgb (13.0-17.5) gm/dL Hct (39.0-53.0) % MCV (80.0-100.0) fL MCH (25.0-35.0) pg MCHC (31.0-37.0) g/dL RDW (11.5-15.5) % Plt Count (150-450) k/uL MPV Neutrophils % % Lymphocytes % % Monocytes % % Eosinophils % % Basophils % % Neutrophils # (1.3-7.7) k/uL Lymphocytes # (1.0-4.8) k/uL Monocytes # (0-1.0) k/uL Eosinophils # (0-0.7) k/uL Basophils # (0-0.2) k/uL PT (9.0-12.0) sec INR (<1.2) APTT (22.0-30.0) sec Sodium (137-145) mmol/L Potassium (3.5-5.1) mmol/L Chloride (98-107) mmol/L Carbon Dioxide (22-30) mmol/L Anion Gap mmol/L BUN (9-20) mg/dL Creatinine (0.66-1.25) mg/dL Est GFR (CKD-EPI)AfAm (>60 ml/min/1.73 sqM) Est GFR (CKD-EPI)NonAf (>60 ml/min/1.73 sqM) Glucose (74-99) mg/dL Plasma Lactic Acid Marcus 1.6 (0.7-2.0) mmol/L Calcium (8.4-10.2) mg/dL Magnesium (1.6-2.3) mg/dL Total Bilirubin (0.2-1.3) mg/dL AST (17-59) U/L ALT (4-49) U/L Alkaline Phosphatase (38-126) U/L Troponin I 0.267 H* (0.000-0.034) ng/mL NT-Pro-B Natriuret Pep 82756 pg/mL Total Protein (6.3-8.2) g/dL Albumin (3.5-5.0) g/dL Disposition Clinical Impression: Pulmonary edema, acute, Chronic kidney failure, Elevated troponin Disposition: ADMITTED IP TO THIS HOSP Referrals: Sahil Carmona DO [Primary Care Provider] - 1-2 days Time of Disposition: 14:55
[2022-04-22 13:35] LABS: Basophils # (A) 0.1 k/uL (0-0.2); Basophils % (A) 1 %; Eosinophils % (A) 0 %; HCT 32.5 % (39.0-53.0); HGB 10.2 gm/dL (13.0-17.5); Lymphocytes # (A) 0.7 k/uL (1.0-4.8); Lymphocytes % (A) 4 %; MCHC 31.3 g/dL (31.0-37.0); MCV 95.8 fL (80.0-100.0); Mean Platelet Volume 9.2; Monocytes # (A) 0.4 k/uL (0-1.0); Monocytes % (A) 3 %; Neutrophils # (A) 13.6 k/uL (1.3-7.7); Neutrophils % (A) 91 %; Platelet Count 258 k/uL (150-450); RBC 3.39 m/uL (4.30-5.90); RDW 14.7 % (11.5-15.5); WBC 14.9 k/uL (3.8-10.6)
[2022-04-22 13:52] LABS: INR 1.1 (<1.2); Partial Thromboplastin Time 22.8 sec (22.0-30.0); Prothrombin Time 11.8 sec (9.0-12.0)
[2022-04-22 13:55] LABS: Albumin 3.3 g/dL (3.5-5.0); Magnesium 2.3 mg/dL (1.6-2.3); Potassium 3.4 mmol/L (3.5-5.1); Total Bilirubin 0.8 mg/dL (0.2-1.3); Total Protein 6.4 g/dL (6.3-8.2)
--- NOTE | 2022-04-22 14:08 | XR ---
EXAMINATION TYPE: XR chest 2V DATE OF EXAM: 04/22/2022 2:00 PM COMPARISON: Chest radiographs from 04/11/2022, ultrasound chest 04/11/2022. TECHNIQUE: XR chest 2V Frontal and lateral views of the chest. CLINICAL INDICATION:Male, 72 years old with history of difficulty breathing; FINDINGS: Lungs/Pleura: No pneumothorax. Small to moderate size left pleural effusion which is decreased from p rior examination. Bibasilar airspace opacities with left greater than right. Pulmonary vascularity: Pulmonary vascular congestion. Heart/mediastinum: Cardiomediastinal silhouette is enlarged and stable. Atherosclerotic calcificatio ns are seen in the aorta. Musculoskeletal: No acute osseous pathology. Midline sternotomy wires are noted and stable. IMPRESSION: Cardiomegaly with pulmonary vascular congestion and small to moderate size left pleural effusion. Add itionally there is bibasilar airspace opacities with left greater than right which may represent alex a versus atelectasis versus infiltrates. Correlate for CHF exacerbation versus multifocal pneumonia.
[2022-04-22] MEDS ORDERED: FUROSEMIDE 10 MG/ML 4 ML VIAL IV STA (14:40)
[2022-04-22] MEDS ORDERED: cefTRIAXone IN SWFI 1,000 MG/10 ML SYRINGE IVP STA (14:40)
[2022-04-22 20:33] LABS: Glucose,Whole Blood 269 mg/dL (70-110)
[2022-04-22] MEDS ORDERED: NITROGLYCERIN SL TABS 0.4 MG TAB SUBLINGUAL PRN (20:33)
[2022-04-22] MEDS ORDERED: DOCUSATE 100 MG CAP PO PRN (20:35)
[2022-04-22] MEDS: hydrALAZINE HCL 50 MG TAB PO SCH (22:04)
[2022-04-22] MEDS: ATORVASTATIN 20 MG TAB PO SCH (22:05)
[2022-04-22] MEDS: SODIUM BICARBONATE TAB 650 MG TAB PO SCH (22:05)
[2022-04-22] MEDS: carvediloL 12.5 MG TAB PO SCH (22:09)
[2022-04-22] MEDS: FUROSEMIDE 20 MG TAB PO SCH (22:10)
[2022-04-22] MEDS: INSULIN ASPART (NovoLOG) 100 UNIT/ML VIAL SQ SCH (22:10)
[2022-04-23] MEDS ORDERED: ALPRAZolam 0.5 MG TAB PO PRN (03:15)
[2022-04-23 06:28] LABS: Glucose,Whole Blood 192 mg/dL (70-110)
[2022-04-23] MEDS: INSULIN DETEMIR (LEVEMIR) 100 UNIT/ML SYR SQ SCH (06:53)
[2022-04-23] MEDS: carvediloL 12.5 MG TAB PO SCH ×2 (06:53→17:26)
[2022-04-23] MEDS: INSULIN ASPART (NovoLOG) 100 UNIT/ML VIAL SQ SCH ×7 (06:53→20:34)
[2022-04-23] MEDS: CALCIUM ACETATE 667 MG TAB PO SCH ×3 (06:53→17:26)
[2022-04-23] MEDS ORDERED: ONDANSETRON 4 MG/2 ML VIAL IVP PRN (08:29)
[2022-04-23] MEDS ORDERED: CLOPIDOGREL 75 MG TAB PO SCH (09:00)
[2022-04-23] MEDS: FAMOTIDINE 20 MG TAB PO SCH (09:29)
[2022-04-23] MEDS: FERROUS SULFATE 325 MG TAB PO SCH (09:29)
[2022-04-23] MEDS: SODIUM BICARBONATE TAB 650 MG TAB PO SCH (09:29)
[2022-04-23] MEDS: hydrALAZINE HCL 50 MG TAB PO SCH ×3 (09:29→20:37)
[2022-04-23] MEDS: ISOSORBIDE MONONITRATE ER 30 MG TAB.ER.24H PO SCH (09:29)
[2022-04-23] MEDS: ASPIRIN 81 MG PO SCH (09:29)
[2022-04-23] MEDS: FUROSEMIDE 20 MG TAB PO SCH (09:30)
[2022-04-23 11:32] LABS: Calcium 8.8 mg/dL (8.4-10.2); Potassium 3.2 mmol/L (3.5-5.1)
[2022-04-23] MEDS: FUROSEMIDE 10 MG/ML 10 ML VIAL IV SCH ×2 (11:39→20:37)
[2022-04-23] MEDS ORDERED: POTASSIUM CHLORIDE ER 20 MEQ TAB.ER PO STA (11:43)
--- NOTE | 2022-04-23 11:43 | P.NPCON ---
History of Present Illness - Reason for Consult chronic renal failure - History of Present Illness Patient is a 72-year-old male with history of chronic kidney disease NKF stage V with baseline creatinine about 4.5 mg/dL. Patient also has underlying CHF with ejection fraction 35-40%. He was recently hospitalized for influenza A and discharged home on 04/15/2022. Patient returns now with worsening shortness of breath increased weakness decreased oral intake and not feeling well. Dialysis was discussed during his last admission and plan was to start hemodialysis as outpatient however since patient is readmitted again we will initiate renal replacement therapy this admission. Patient is agreeable. No complaints of fever chills abdominal pain or diarrhea. No cough. Review of Systems As per HPI Past Medical History Past Medical History: Coronary Artery Disease (CAD), Chest Pain / Angina, Heart Failure, Diabetes Mellitus, Eye Disorder, GERD/Reflux, Hyperlipidemia, Hypertension, Myocardial Infarction ([place]), Pneumonia, Renal Disease Additional Past Medical History / Comment(s): IDDM type II, bilateral diabetic retinopathy, CKD stage III, nephrolithiasis, bronchitis, L pleural effusion, recently received 2 iron infusions for anemia. Last Myocardial Infarction Date:: 2009 History of Any Multi-Drug Resistant Organisms: None Reported Past Surgical History: Coronary Bypass/CABG, Heart Catheterization, Heart Catheterization With Stent Additional Past Surgical History / Comment(s): 2009 CABG 5 vessel, bilateral cataract removals/lens implants, oral surgery Past Anesthesia/Blood Transfusion Reactions: No Reported Reaction, Motion Sickness Date of Last Stent Placement:: 08/05/17 Past Psychological History: No Psychological Hx Reported Additional Psychological History / Comment(s): Pt resides with his spouse. He uses no assistive device. He drives some. He has a glucometer and pulse ox. Smoking Status: Never smoker Past Alcohol Use History: Rare Past Drug Use History: None Reported - Past Family History Mother Family Medical History: CVA/TIA, Diabetes Mellitus Father Family Medical History: CVA/TIA, Myocardial Infarction ([place]) Additional Family Medical History / Comment(s): mother: htn, dm. Medications and Allergies Home Medications Medication Instructions Recorded Confirmed Type Aspirin EC [Ecotrin Low Dose] 81 mg PO DAILY 10/27/13 04/22/22 History Famotidine [Pepcid] 20 mg PO DAILY 10/27/13 04/22/22 History Atorvastatin [Lipitor] 20 mg PO HS 12/30/16 04/22/22 History Clopidogrel [Plavix] 75 mg PO DAILY #90 tab 07/15/17 04/22/22 Rx Nitroglycerin Sl Tabs [Nitrostat] 0.4 mg PO Q5M PRN 07/18/19 04/22/22 History carvediloL [Coreg] 25 mg PO BID 07/18/19 04/22/22 History Ergocalciferol [Vitamin D2 (1250 1,250 mcg PO KEATING 04/11/22 04/22/22 History Mcg = 59442 Iu)] Ferrous Sulfate [Feosol] 325 mg PO DAILY 04/11/22 04/22/22 History INSULIN LISPRO (humaLOG) [humaLOG] 18 units SQ AC-BRKFST 04/11/22 04/22/22 History Insulin Glargine,Hum.rec.anlog 30 unit SQ DAILY 04/11/22 04/22/22 History [Lantus Solostar Pen] Insulin Lispro [humaLOG Kwikpen] 10 units SQ AC-BID@1200,1800 04/11/22 04/22/22 History Isosorbide Mononitrate [Isosorbide 30 mg PO DAILY 04/11/22 04/22/22 History Mononitrate ER] calcitrioL [Calcitriol] 0.25 mcg PO MOTUWETHFR 04/11/22 04/22/22 History Calcium Acetate [PhosLo] 667 mg PO TID-W/MEALS #0 tab 04/15/22 04/22/22 Rx Sodium Bicarbonate Tab 650 mg PO TID tab 04/15/22 04/22/22 Rx hydrALAZINE HCL [Apresoline] 100 mg PO TID #180 tab 04/15/22 04/22/22 Rx Furosemide [Lasix] 60 mg PO BID 04/22/22 04/22/22 History Allergies Allergy/AdvReac Type Severity Reaction Status Date / Time No Known Allergies Allergy Verified 04/22/22 15:14 Physical Exam Vitals: Vital Signs Temp Pulse Pulse Resp BP BP Pulse Ox 04/23/22 08:30 97.7 F 53 L 18 182/84 94 L 04/23/22 04:00 97.9 F 64 16 179/94 91 L 04/23/22 02:00 55 L 16 04/23/22 00:48 69 17 04/23/22 00:00 97.4 F L 69 17 164/80 92 L 04/22/22 20:00 96.9 F L 74 18 184/89 91 L 04/22/22 18:53 97.9 F 63 18 195/82 94 L 04/22/22 18:50 60 20 180/81 94 L 04/22/22 18:43 80 18 160/80 98 04/22/22 14:26 20 04/22/22 14:25 58 L 20 168/102 94 L 04/22/22 12:13 98 F 64 22 173/91 94 L Intake and Output 04/22/22 04/23/22 04/23/22 22:59 06:59 14:59 Output Total 2 150 Balance -2 -150 Output: Urine 2 150 Other: Voiding Method Urinal Urinal # Voids 250 Weight 97.522 kg 98.2 kg Patient is awake, comfortable, mildly short of breath Examination of the heart S1 and S2 Examination of the lungs decreased breath sounds at the bases with basilar crackles abdomen is soft nontender Examination of the lower extremities shows edema 1+ bilaterally with chronic skin changes 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 1. CK D stage V with Progressive renal failure and volume overload. We will initiate renal replacement therapy 2. Acute on top of chronic systolic CHF 3. CK D mineral bone disorder 4. Cardiomyopathy with ejection fraction 35-40% with moderate to severe tri cuspid regurgitation and pulmonary hypertension 5. Coronary artery disease status post coronary stenting 6. Hypertension with CK D 7. Recent influenza A infection Plan: Consult vascular surgery for dialysis catheter present placement. Plan for switching to peritoneal dialysis down the road as outpatient. Case management to set up outpatient hemodialysis chair time.
[2022-04-23 12:06] LABS: Glucose,Whole Blood 141 mg/dL (70-110)
--- NOTE | 2022-04-23 13:23 | P.CRDCN ---
History of Present Illness History of present illness: This is a 72 year old male with a past medical history of coronary artery disease with 6V CABG (AGUILLON-LAD, VG-PDA, VG-OM1, VG-OM2, VG-OM3, VG-D1) in 2009, and PCI to the distal RCA 07/2017 and PCI of OM-3 in 08/2017, ischemic cardiomyopathy with EF 40%, congestive heart failure, hypertension, dyslipidemia, type 2 diabetes, stage V chronic kidney disease. He follows with Dr. Gong. Patient was recently hospitalized 2 weeks ago for influenza A and had recommended to undergo dialysis as an outpatient. He got home last Thursday however over last 2 days has been about the more shortness breath. Blood pressure has been elevated in the 170s to 180s. He denies any chest pain or pressure. He admits he makes some mild monitor urine. His last stenting was in 2017. He has been on the Plavix since that time. He admits to some history of being on Coumadin in the past however unsure what for. White blood cell count 14.9, hemoglobin 10.2, creatinine 5.8, troponin 0.26, 0.25, 0.25, proBNP 55,000. Troponin has been chronically elevated in the 0.1 - 0.2 range in the past. DIAGNOSTICS * EKG Sinus rhythm, normal axis, no significant ST or T wave abnormalities. * Echocardiogram in the office 12/2021 revealed EF of 40%, mild aortic regurgitation, moderate mitral regurgitation, dilated aorta at 4.0 cm. REVIEW OF SYSTEMS At the time of my exam: CONSTITUTIONAL: Denies fever or chills. CARDIOVASCULAR: Denies chest pain, +shortness of breath, no orthopnea, PND or palpitations. RESPIRATORY: + Shortness breath GASTROINTESTINAL: Denies abdominal pain, diarrhea, constipation, nausea or vomiting. MUSCULOSKELETAL: Denies myalgias. NEUROLOGIC: Denies numbness, tingling, headacbe or weakness. ENDOCRINE: Denies fatigue, weight change, polydipsia or polyurina. GENITOURINARY: Denies burning, hematuria or urgency with micturation. HEMATOLOGIC: Denies history of anemia or bleeding. PHYSICAL EXAMINATION Vitals reviewed CONSTITUTIONAL: No apparent distress. HEENT: Head is normocephalic. Pupils are equal, round. Sclerae anicteric. Mucous membranes of the mouth are moist. No JVD. No carotid bruit. CHEST EXAMINATION: Lungs are diminished bilaterally to auscultation. No chest wall tenderness is noted on palpation or with deep breathing. HEART EXAMINATION: Regular rate and rhythm. S1, S2 heard. Systolic murmur at apex, No gallops or rub. ABDOMEN: Soft, nontender. Positive bowel sounds. EXTREMITIES: 2+ peripheral pulses, moderate bilateral lower extremity edema and no calf tenderness. NEUROLOGIC EXAMINATION: Patient is awake, alert and oriented x3. ASSESSMENT Acute on chronic heart failure with mildly reduced ejection fraction 40% Stage V chronic kidney disease with recent recommendations for HD outpt Coronary artery disease with 6V CABG (AGUILLON-LAD, VG-PDA, VG-OM1, VG-OM2, VG-OM3, VG-D1) in 2009, and PCI to the distal RCA 07/2017 and PCI of OM-3 in 08/2017 Ischemic cardiomyopathy with EF 40% Recent Influenza A 2 weeks ago Hypertension Dyslipidemia Type 2 diabetes PLAN Patient had worsened respiratory distress and appears related to volume overload and heart failure. Time overload mainly related to kidney function and oral diuretics not sufficient. Continue with current dose of diuretics and hemodialysis per nephrology. Continue with heart failure regimen. Mildly chronically elevated troponins and no angina-type symptoms. Okay to hold Plavix for any surgery in May consider only aspirin going home given his been 4 years since his last stenting. Past Medical History Past Medical History: Coronary Artery Disease (CAD), Chest Pain / Angina, Heart Failure, Diabetes Mellitus, Eye Disorder, GERD/Reflux, Hyperlipidemia, Hypertension, Myocardial Infarction ([place]), Pneumonia, Renal Disease Additional Past Medical History / Comment(s): IDDM type II, bilateral diabetic retinopathy, CKD stage III, nephrolithiasis, bronchitis, L pleural effusion, recently received 2 iron infusions for anemia. Last Myocardial Infarction Date:: 2009 History of Any Multi-Drug Resistant Organisms: None Reported Past Surgical History: Coronary Bypass/CABG, Heart Catheterization, Heart Catheterization With Stent Additional Past Surgical History / Comment(s): 2009 CABG 5 vessel, bilateral cataract removals/lens implants, oral surgery Past Anesthesia/Blood Transfusion Reactions: No Reported Reaction, Motion Sickness Date of Last Stent Placement:: 08/05/17 Past Psychological History: No Psychological Hx Reported Additional Psychological History / Comment(s): Pt resides with his spouse. He uses no assistive device. He drives some. He has a glucometer and pulse ox. Smoking Status: Never smoker Past Alcohol Use History: Rare Past Drug Use History: None Reported - Past Family History Mother Family Medical History: CVA/TIA, Diabetes Mellitus Father Family Medical History: CVA/TIA, Myocardial Infarction ([place]) Additional Family Medical History / Comment(s): mother: htn, dm. Medications and Allergies Home Medications Medication Instructions Recorded Confirmed Type Aspirin EC [Ecotrin Low Dose] 81 mg PO DAILY 10/27/13 04/22/22 History Famotidine [Pepcid] 20 mg PO DAILY 10/27/13 04/22/22 History Atorvastatin [Lipitor] 20 mg PO HS 12/30/16 04/22/22 History Clopidogrel [Plavix] 75 mg PO DAILY #90 tab 07/15/17 04/22/22 Rx Nitroglycerin Sl Tabs [Nitrostat] 0.4 mg PO Q5M PRN 07/18/19 04/22/22 History carvediloL [Coreg] 25 mg PO BID 07/18/19 04/22/22 History Ergocalciferol [Vitamin D2 (1250 1,250 mcg PO KEATING 04/11/22 04/22/22 History Mcg = 30593 Iu)] Ferrous Sulfate [Feosol] 325 mg PO DAILY 04/11/22 04/22/22 History INSULIN LISPRO (humaLOG) [humaLOG] 18 units SQ AC-BRKFST 04/11/22 04/22/22 History Insulin Glargine,Hum.rec.anlog 30 unit SQ DAILY 04/11/22 04/22/22 History [Lantus Solostar Pen] Insulin Lispro [humaLOG Kwikpen] 10 units SQ AC-BID@1200,1800 04/11/22 04/22/22 History Isosorbide Mononitrate [Isosorbide 30 mg PO DAILY 04/11/22 04/22/22 History Mononitrate ER] calcitrioL [Calcitriol] 0.25 mcg PO MOTUWETHFR 04/11/22 04/22/22 History Calcium Acetate [PhosLo] 667 mg PO TID-W/MEALS #0 tab 04/15/22 04/22/22 Rx Sodium Bicarbonate Tab 650 mg PO TID tab 04/15/22 04/22/22 Rx hydrALAZINE HCL [Apresoline] 100 mg PO TID #180 tab 04/15/22 04/22/22 Rx Furosemide [Lasix] 60 mg PO BID 04/22/22 04/22/22 History Allergies Allergy/AdvReac Type Severity Reaction Status Date / Time No Known Allergies Allergy Verified 04/22/22 15:14 Physical Exam Vitals: Vital Signs Temp Pulse Pulse Resp BP BP Pulse Ox 04/23/22 11:38 97.6 F 61 18 174/95 96 04/23/22 08:30 97.7 F 53 L 18 182/84 94 L 04/23/22 04:00 97.9 F 64 16 179/94 91 L 04/23/22 02:00 55 L 16 04/23/22 00:48 69 17 04/23/22 00:00 97.4 F L 69 17 164/80 92 L 04/22/22 20:00 96.9 F L 74 18 184/89 91 L 04/22/22 18:53 97.9 F 63 18 195/82 94 L 04/22/22 18:50 60 20 180/81 94 L 04/22/22 18:43 80 18 160/80 98 04/22/22 14:26 20 04/22/22 14:25 58 L 20 168/102 94 L Intake and Output 04/22/22 04/23/22 04/23/22 22:59 06:59 14:59 Output Total 2 150 Balance -2 -150 Output: Urine 2 150 Other: Voiding Method Urinal Urinal # Voids 250 Weight 97.522 kg 98.2 kg Results 04/22/22 13:27 04/23/22 10:56 Cardiac Enzymes 04/22/22 04/22/22 04/22/22 Range/Units 13:27 13:27 15:09 AST 31 (17-59) U/L Troponin I 0.267 H* 0.259 H* (0.000-0.034) ng/mL 04/22/22 Range/Units 21:18 AST (17-59) U/L Troponin I 0.253 H* (0.000-0.034) ng/mL Coagulation 04/22/22 Range/Units 13:27 PT 11.8 (9.0-12.0) sec APTT 22.8 (22.0-30.0) sec CBC 04/22/22 Range/Units 13:27 WBC 14.9 H (3.8-10.6) k/uL RBC 3.39 L (4.30-5.90) m/uL Hgb 10.2 L (13.0-17.5) gm/dL Hct 32.5 L (39.0-53.0) % Plt Count 258 (150-450) k/uL Comprehensive Metabolic Panel 04/22/22 04/23/22 Range/Units 13:27 10:56 Sodium 145 145 (137-145) mmol/L Potassium 3.4 L 3.2 L (3.5-5.1) mmol/L Chloride 110 H 111 H (98-107) mmol/L Carbon Dioxide 24 25 (22-30) mmol/L BUN 78 H 81 H (9-20) mg/dL Creatinine 5.86 H 5.85 H (0.66-1.25) mg/dL Glucose 220 H 152 H (74-99) mg/dL Calcium 9.0 8.8 (8.4-10.2) mg/dL AST 31 (17-59) U/L ALT 34 (4-49) U/L Alkaline Phosphatase 80 (38-126) U/L Total Protein 6.4 (6.3-8.2) g/dL Albumin 3.3 L (3.5-5.0) g/dL Current Medications Generic Name Dose Route Start Last Admin Trade Name Freq PRN Reason Stop Dose Admin Alprazolam 0.5 mg 04/23/22 03:15 04/23/22 03:41 Alprazolam 0.5 Mg Tab PO 0.5 mg QID PRN Administration Anxiety Aspirin 81 mg 04/23/22 09:00 04/23/22 09:29 Aspirin 81 Mg PO 81 mg DAILY NICOLÁS Administration Atorvastatin Calcium 20 mg 04/22/22 21:00 04/22/22 22:05 Atorvastatin 20 Mg Tab PO 20 mg HS NICOLÁS Administration Calcitriol 0.25 mcg 04/22/22 21:00 04/23/22 09:30 Calcitriol 0.25 Mcg Cap PO 0.25 mcg [id number]@0900 NICOLÁS Administration Calcium Acetate 667 mg 04/23/22 07:30 04/23/22 06:53 Calcium Acetate 667 Mg Tab PO 667 mg TID-W/MEALS NICOLÁS Administration Carvedilol 25 mg 04/22/22 21:00 04/23/22 06:53 Carvedilol 12.5 Mg Tab PO 25 mg BID-W/MEALS [facility] Administration Docusate Sodium 100 mg 04/22/22 20:35 04/22/22 22:04 Docusate 100 Mg Cap PO 100 mg DAILY PRN Administration Constipation Ergocalciferol 1,250 mcg 04/27/22 09:00 Ergocalciferol 1,250 Mcg (50,000 Iu) Capsule PO Keating@0900 [facility] Famotidine 20 mg 04/23/22 09:00 04/23/22 09:29 Famotidine 20 Mg Tab PO 20 mg DAILY NICOLÁS Administration Ferrous Sulfate 325 mg 04/23/22 09:00 04/23/22 09:29 Ferrous Sulfate 325 Mg Tab PO 325 mg DAILY [facility] Administration Furosemide 60 mg 04/23/22 10:45 04/23/22 11:39 Furosemide 10 Mg/Ml 10 Ml Vial IV 60 mg Q12HR [facility] Administration Hydralazine HCl 100 mg 04/22/22 22:00 04/23/22 09:29 Hydralazine Hcl 50 Mg Tab PO 100 mg TID [facility] Administration Insulin Aspart 10 unit 04/23/22 12:00 04/23/22 13:09 Insulin Aspart (Novolog) 100 Unit/Ml Vial SQ Not Given AC-BID@1200,1800 [facility] Insulin Aspart 18 unit 04/23/22 07:30 04/23/22 06:54 Insulin Aspart (Novolog) 100 Unit/Ml Vial SQ Not Given AC-BRKFST [facility] Insulin Aspart 0 unit 04/22/22 22:07 04/23/22 13:09 Insulin Aspart (Novolog) 100 Unit/Ml Vial SQ Not Given ACHS [facility] Protocol Insulin Detemir 30 unit 04/23/22 07:00 04/23/22 06:53 Insulin Detemir (Levemir) 100 Unit/Ml Syr SQ 30 unit DAILY@0700 [facility] Administration Isosorbide Mononitrate 30 mg 04/23/22 09:00 04/23/22 09:29 Isosorbide Mononitrate Er 30 Mg Tab.Er.24h PO 30 mg DAILY [facility] Administration Nitroglycerin 0.4 mg 04/22/22 20:33 Nitroglycerin Sl Tabs 0.4 Mg Tab SUBLINGUAL Q5M PRN Chest Pain Ondansetron HCl 4 mg 04/23/22 08:29 Ondansetron 4 Mg/2 Ml Vial IVP Q8HR PRN Nausea And Vomiting Intake and Output 04/22/22 04/23/22 04/23/22 22:59 06:59 14:59 Output Total 2 150 Balance -2 -150 Output: Urine 2 150 Other: Voiding Method Urinal Urinal # Voids 250 Weight 97.522 kg 98.2 kg 04/22/22 13:27 04/23/22 10:56
[2022-04-23] MEDS ORDERED: SODIUM CHLORIDE 0.9% 250 ML IV ONE (13:25)
[2022-04-23] MEDS ORDERED: fentaNYL (PF) 50 MCG/ML 2 ML AMP ONE (13:31)
[2022-04-23] MEDS ORDERED: MIDAZOLAM 2 MG/2 ML VIAL IV ONE (13:32)
[2022-04-23] MEDS ORDERED: LIDOCAINE 1% INJ 10MG/ML (30 ML VIAL-PF) SQ ONE (13:32)
[2022-04-23] MEDS ORDERED: fentaNYL (PF) 50 MCG/ML 2 ML AMP IV ONE (13:32)
[2022-04-23] MEDS ORDERED: HEPARIN SODIUM 1,000 UN/ML (10ML VL) ONE (13:37)
--- NOTE | 2022-04-23 14:01 | P.GSCN ---
History of Present Illness History of present illness: 72-year-old gentleman who came to the emergency room with shortness of breath patient has history of 4 chronic kidney disease creatinine is 4.5 Sauravhen also has history of coronary artery bypass plus stent placed in the past patient is on Plavix history of diabetes hypertension discussed about dialysis catheter placement patient had his Plavix taken this morning we will place the right fem oral approach Dialysis catheter and then we'll place permanent Plavix has been stopped Neck is supple no bruit appreciated Chest patient patient has a bilateral crackles the lung bases first and second sound present Abdomen soft nontender Femorals 1+ bilateral his swelling of the both lower extremity plan is a right femoral dialysis catheter risk and complication discussed Past Medical History Past Medical History: Coronary Artery Disease (CAD), Chest Pain / Angina, Heart Failure, Diabetes Mellitus, Eye Disorder, GERD/Reflux, Hyperlipidemia, Hypert ension, Myocardial Infarction ([place]), Pneumonia, Renal Disease Additional Past Medical History / Comment(s): IDDM type II, bilateral diabetic retinopathy, CKD stage III, nephrolithiasis, bronchitis, L pleural effusion, recently received 2 iron infusions for anemia. Last Myocardial Infarction Date:: 2009 History of Any Multi-Drug Resistant Organisms: None Reported Past Surgical History: Coronary Bypass/CABG, Heart Catheterization, Heart Catheterization With Stent Additional Past Surgical History / Comment(s): 2009 CABG 5 vessel, bilateral cataract removals/lens implants, oral surgery Past Anesthesia/Blood Transfusion Reactions: No Reported Reaction, Motion Sickness Date of Last Stent Placement:: 08/05/17 Past Psychological History: No Psychological Hx Reported Additional Psychological History / Comment(s): Pt resides with his spouse. He uses no assistive device. He drives some. He has a glucometer and pulse ox. Smoking Status: Never smoker Past Alcohol Use History: Rare Past Drug Use History: None Reported - Past Family History Mother Family Medical History: CVA/TIA, Diabetes Mellitus Father Family Medical History: CVA/TIA, Myocardial Infarction ([place]) Additional Family Medical History / Comment(s): mother: htn, dm. Medications and Allergies Home Medications Medication Instructions Recorded Confirmed Type Aspirin EC [Ecotrin Low Dose] 81 mg PO DAILY 10/27/13 04/22/22 History Famotidine [Pepcid] 20 mg PO DAILY 10/27/13 04/22/22 History Atorvastatin [Lipitor] 20 mg PO HS 12/30/16 04/22/22 History Clopidogrel [Plavix] 75 mg PO DAILY #90 tab 07/15/17 04/22/22 Rx Nitroglycerin Sl Tabs [Nitrostat] 0.4 mg PO Q5M PRN 07/18/19 04/22/22 History carvediloL [Coreg] 25 mg PO BID 07/18/19 04/22/22 History Ergocalciferol [Vitamin D2 (1250 1,250 mcg PO KEATING 04/11/22 04/22/22 History Mcg = 57719 Iu)] Ferrous Sulfate [Feosol] 325 mg PO DAILY 04/11/22 04/22/22 History INSULIN LISPRO (humaLOG) [humaLOG] 18 units SQ AC-BRKFST 04/11/22 04/22/22 History Insulin Glargine,Hum.rec.anlog 30 unit SQ DAILY 04/11/22 04/22/22 History [Lantus Solostar Pen] Insulin Lispro [humaLOG Kwikpen] 10 units SQ AC-BID@1200,1800 04/11/22 04/22/22 History Isosorbide Mononitrate [Isosorbide 30 mg PO DAILY 04/11/22 04/22/22 History Mononitrate ER] calcitrioL [Calcitriol] 0.25 mcg PO MOTUWETHFR 04/11/22 04/22/22 History Calcium Acetate [PhosLo] 667 mg PO TID-W/MEALS #0 tab 04/15/22 04/22/22 Rx Sodium Bicarbonate Tab 650 mg PO TID tab 04/15/22 04/22/22 Rx hydrALAZINE HCL [Apresoline] 100 mg PO TID #180 tab 04/15/22 04/22/22 Rx Furosemide [Lasix] 60 mg PO BID 04/22/22 04/22/22 History Allergies Allergy/AdvReac Type Severity Reaction Status Date / Time No Known Allergies Allergy Verified 04/22/22 15:14 Surgical - Exam Vital Signs Temp Pulse Resp BP Pulse Ox 98 F 64 22 173/91 94 L 04/22/22 12:13 04/22/22 12:13 04/22/22 12:13 04/22/22 12:13 04/22/22 12:13 Results - Labs 04/22/22 13:27 04/23/22 10:56 Abnormal Lab Results - Last 24 Hours (Table) 04/22/22 04/22/22 04/22/22 Range/Units 13:27 15:09 20:32 Potassium (3.5-5.1) mmol/L Chloride (98-107) mmol/L BUN (9-20) mg/dL Creatinine (0.66-1.25) mg/dL Glucose (74-99) mg/dL POC Glucose (mg/dL) 269 H (70-110) mg/dL Troponin I 0.267 H* 0.259 H* (0.000-0.034) ng/mL 04/22/22 04/23/22 04/23/22 Range/Units 21:18 06:25 10:56 Potassium 3.2 L (3.5-5.1) mmol/L Chloride 111 H (98-107) mmol/L BUN 81 H (9-20) mg/dL Creatinine 5.85 H (0.66-1.25) mg/dL Glucose 152 H (74-99) mg/dL POC Glucose (mg/dL) 192 H (70-110) mg/dL Troponin I 0.253 H* (0.000-0.034) ng/mL 04/23/22 Range/Units 12:04 Potassium (3.5-5.1) mmol/L Chloride (98-107) mmol/L BUN (9-20) mg/dL Creatinine (0.66-1.25) mg/dL Glucose (74-99) mg/dL POC Glucose (mg/dL) 141 H (70-110) mg/dL Troponin I (0.000-0.034) ng/mL Diabetes panel 04/23/22 Range/Units 10:56 Sodium 145 (137-145) mmol/L Potassium 3.2 L (3.5-5.1) mmol/L Chloride 111 H (98-107) mmol/L Carbon Dioxide 25 (22-30) mmol/L BUN 81 H (9-20) mg/dL Creatinine 5.85 H (0.66-1.25) mg/dL Glucose 152 H (74-99) mg/dL Calcium 8.8 (8.4-10.2) mg/dL Calcium panel 04/23/22 Range/Units 10:56 Calcium 8.8 (8.4-10.2) mg/dL Pituitary panel 04/23/22 Range/Units 10:56 Sodium 145 (137-145) mmol/L Potassium 3.2 L (3.5-5.1) mmol/L Chloride 111 H (98-107) mmol/L Carbon Dioxide 25 (22-30) mmol/L BUN 81 H (9-20) mg/dL Creatinine 5.85 H (0.66-1.25) mg/dL Glucose 152 H (74-99) mg/dL Calcium 8.8 (8.4-10.2) mg/dL Adrenal panel 04/23/22 Range/Units 10:56 Sodium 145 (137-145) mmol/L Potassium 3.2 L (3.5-5.1) mmol/L Chloride 111 H (98-107) mmol/L Carbon Dioxide 25 (22-30) mmol/L BUN 81 H (9-20) mg/dL Creatinine 5.85 H (0.66-1.25) mg/dL Glucose 152 H (74-99) mg/dL Calcium 8.8 (8.4-10.2) mg/dL
--- NOTE | 2022-04-23 14:03 | P.PCN ---
Description of Procedure: Acute chronic renal failure history of shortness of breath posterior was same Ultrasound-guided dialysis catheter placed right femoral approach Patient brought to the Product Safety Coordinator right groin were prepped and draped applied sterile manner 1% lidocaine for infected in the groin area ultrasound-guided micropuncture introduced right femoral vein micropuncture guidewire was passed after that we passed a regular guidewire under fluoroscopy control dilator withdrawn. The guidewire then replaced 24 cm triple-lumen hemodialysis catheter catheter. The guidewire guidewire was removed flushed with heparin saline and Hep-Lock secured with 3-0 nylon patient are to the procedure well
--- NOTE | 2022-04-23 14:17 | IR ---
EXAMINATION TYPE: IR cvc insert non tunneled DATE OF EXAM: 04/23/2022 COMPARISON: NONE HISTORY: Fluoroscopy time. Fluoroscopy was provided to the referring clinician.
[2022-04-23 16:57] LABS: Glucose,Whole Blood 79 mg/dL (70-110)
[2022-04-23 18:45] LABS: Hepatitis B Surface Antigen Nonreactive (Nonreactive); Hepatitis C IgG Antibody Nonreactive (Nonreactive)
[2022-04-23] MEDS ORDERED: DEXTROSE 50% SYRINGE 50 ML IVP ONE (19:11)
[2022-04-23 19:13] LABS: Glucose,Whole Blood 65 mg/dL (70-110)
[2022-04-23 19:38] LABS: Glucose,Whole Blood 80 mg/dL (70-110)
[2022-04-23] MEDS: ATORVASTATIN 20 MG TAB PO SCH (20:37)
[2022-04-23 21:37] LABS: Hepatitis B Surface AB- Quant 3.5 mIU/mL; Hepatitis B Surface Antibody Nonreactive (Nonreactive)
[2022-04-24] MEDS ORDERED: amLODIPine 10 MG TAB PO STA (01:15)
[2022-04-24] MEDS ORDERED: cloNIDine HCL 0.1 MG TAB PO STA (01:15)
[2022-04-24 06:08] LABS: Glucose,Whole Blood 120 mg/dL (70-110)
[2022-04-24] MEDS: INSULIN ASPART (NovoLOG) 100 UNIT/ML VIAL SQ SCH ×7 (06:33→20:26)
[2022-04-24] MEDS: INSULIN DETEMIR (LEVEMIR) 100 UNIT/ML SYR SQ SCH (06:34)
[2022-04-24] MEDS: CALCIUM ACETATE 667 MG TAB PO SCH ×3 (06:38→17:01)
[2022-04-24] MEDS: carvediloL 12.5 MG TAB PO SCH ×2 (06:38→17:02)
--- NOTE | 2022-04-24 08:16 | P.PN ---
Subjective Patient is seen for follow-up for CK D stage IV. He is scheduled to start hemodialysis today. Patient had a temporary catheter placed as he had been on Plavix and plan is to switch to IJ permacath the next 1 or 2 days. Patient will have his first hemodialysis treatment today. Overnight blood pressure has been elevated and clonidine was added hopefully hypertension will improve with ultrafiltration with hemodialysis. Objective - Vital Signs Vital signs: Vital Signs Temp 98.0 F 04/24/22 03:37 Pulse 60 04/24/22 03:37 Resp 20 04/24/22 03:37 BP 182/92 04/24/22 03:37 Pulse Ox 98 04/24/22 03:37 FiO2 Intake & Output 04/23/22 04/24/22 04/24/22 18:59 06:59 18:59 Intake Total 615 Output Total 787 500 Balance -172 -500 Weight 82 kg Intake: IV 75 Oral 540 Output: Urine 700 500 Post Void Residual 87 Other: Voiding Method Urinal Urinal # Voids 1 2 - Exam Awake, comfortable, no acute distress Examination of the heart S1 and S2 Examination lungs bilateral breath sounds are heard Abdomen is soft nontender Exertion lower extremities shows 1+ edema bilaterally BLADDER BLOWER exam grossly intact - Labs CBC & Chem 7: 04/22/22 13:27 04/23/22 10:56 Labs: Abnormal Lab Results - Last 24 Hours (Table) 04/23/22 04/23/22 04/23/22 Range/Units 10:56 12:04 19:12 Potassium 3.2 L (3.5-5.1) mmol/L Chloride 111 H (98-107) mmol/L BUN 81 H (9-20) mg/dL Creatinine 5.85 H (0.66-1.25) mg/dL Glucose 152 H (74-99) mg/dL POC Glucose (mg/dL) 141 H 65 L (70-110) mg/dL 04/24/22 Range/Units 06:07 Potassium (3.5-5.1) mmol/L Chloride (98-107) mmol/L BUN (9-20) mg/dL Creatinine (0.66-1.25) mg/dL Glucose (74-99) mg/dL POC Glucose (mg/dL) 120 H (70-110) mg/dL Microbiology - Last 24 Hours (Table) 04/22/22 13:25 Blood Culture - Preliminary Blood No Growth after 24 hours 04/22/22 13:10 Blood Culture - Preliminary Blood No Growth after 24 hours Assessment and Plan Assessment: . 1. CK D stage V with Progressive renal failure and volume overload. We will initiate renal replacement therapy. Status post femoral catheter placement yesterday and patient will have his first dialysis treatment today. IJ permacath to be placed in 1-2 days. Plavix currently on hold 2. Acute on top of chronic systolic CHF 3. CK D mineral bone disorder 4. Cardiomyopathy with ejection fraction 35-40% with moderate to severe tricuspid regurgitation and pulmonary hypertension 5. Coronary artery disease status post coronary stenting 6. Hypertension with CK D 7. Recent influenza A infection Plan: Hemodialysis today and then again in a.m. Plan for switching to peritoneal dialysis down the road as outpatient. Case management to set up outpatient hemodialysis chair time.
[2022-04-24] MEDS: ASPIRIN 81 MG PO SCH (09:34)
[2022-04-24] MEDS: FERROUS SULFATE 325 MG TAB PO SCH (09:34)
[2022-04-24] MEDS: FAMOTIDINE 20 MG TAB PO SCH (09:34)
[2022-04-24] MEDS: ISOSORBIDE MONONITRATE ER 30 MG TAB.ER.24H PO SCH (10:14)
[2022-04-24] MEDS: hydrALAZINE HCL 50 MG TAB PO SCH ×3 (10:14→20:34)
[2022-04-24] MEDS: amLODIPine 10 MG TAB PO SCH (10:14)
[2022-04-24] MEDS: FUROSEMIDE 10 MG/ML 10 ML VIAL IV SCH ×2 (10:14→20:34)
[2022-04-24] MEDS: cloNIDine HCL 0.1 MG TAB PO SCH ×2 (10:14→20:34)
--- NOTE | 2022-04-24 11:46 | P.PN ---
Subjective This is a 72 year old male with a past medical history of coronary artery disease with 6V CABG (AGUILLON-LAD, VG-PDA, VG-OM1, VG-OM2, VG-OM3, VG-D1) in 2009, and PCI to the distal RCA 07/2017 and PCI of OM-3 in 08/2017, ischemic cardiomyopathy with EF 40%, congestive heart failure, hypertension, dyslipidemia, type 2 diabetes, stage V chronic kidney disease. He follows with Dr. Gong. Patient was recently hospitalized 2 weeks ago for influenza A and had recommended to undergo dialysis as an outpatient. He got home last Thursday however over last 2 days has been about the more shortness breath. Blood pressure has been elevated in the 170s to 180s. He denies any chest pain or pressure. He admits he makes some mild monitor urine. His last stenting was in 2017. He has been on the Plavix since that time. He admits to some history of being on Coumadin in the past however unsure what for. White blood cell count 14.9, hemoglobin 10.2, creatinine 5.8, troponin 0.26, 0.25, 0.25, proBNP 55,000. Troponin has been chronically elevated in the 0.1 - 0.2 range in the past. DIAGNOSTICS * EKG Sinus rhythm, normal axis, no significant ST or T wave abnormalities. * Echocardiogram in the office 12/2021 revealed EF of 40%, mild aortic regurgitation, moderate mitral regurgitation, dilated aorta at 4.0 cm. 04/24 Patient seen and examined. Patient still having some shortness breath. Blood pressure elevated 160s to 180s however patient just started on his first round of dialysis this morning. PHYSICAL EXAMINATION Vitals reviewed CONSTITUTIONAL: No apparent distress. HEENT: Head is normocephalic. Pupils are equal, round. Sclerae anicteric. Mucous membranes of the mouth are moist. No JVD. No carotid bruit. CHEST EXAMINATION: Lungs are diminished bilaterally to auscultation. No chest wall tenderness is noted on palpation or with deep breathing. HEART EXAMINATION: Regular rate and rhythm. S1, S2 heard. Systolic murmur at apex, No gallops or rub. ABDOMEN: Soft, nontender. Positive bowel sounds. EXTREMITIES: 2+ peripheral pulses, moderate bilateral lower extremity edema and no calf tenderness. NEUROLOGIC EXAMINATION: Patient is awake, alert and oriented x3. ASSESSMENT Acute on chronic heart failure with mildly reduced ejection fraction 40% Stage V chronic kidney disease with recent recommendations for HD outpt Coronary artery disease with 6V CABG (AGUILLON-LAD, VG-PDA, VG-OM1, VG-OM2, VG-OM3, VG-D1) in 2009, and PCI to the distal RCA 07/2017 and PCI of OM-3 in 08/2017 Ischemic cardiomyopathy with EF 40% Recent Influenza A 2 weeks ago Hypertension Dyslipidemia Type 2 diabetes PLAN Patient had worsened respiratory distress and appears related to volume overload and heart failure. Volume overload mainly related to kidney function and oral diuretics not sufficient. Continue with current dose of diuretics and hemodialysis per nephrology. Monitor response of BP and respiratory status with HD today. Continue with heart failure regimen. Mildly chronically elevated troponins and no angina-type symptoms. Hold Plavix going home and only aspirin given it has been 4 years since his last stenting. Objective - Vital Signs Vital signs: Vital Signs Temp 97.2 F L 04/24/22 08:00 Pulse 57 L 04/24/22 08:00 Resp 20 04/24/22 08:00 BP 164/69 04/24/22 08:00 Pulse Ox 95 04/24/22 08:00 FiO2 Intake & Output 04/23/22 04/24/22 04/24/22 18:59 06:59 18:59 Intake Total 615 Output Total 787 500 300 Balance -172 -500 -300 Weight 82 kg Intake: IV 75 Oral 540 Output: Urine 700 500 300 Post Void Residual 87 Other: Voiding Method Urinal Urinal # Voids 1 2 - Labs CBC & Chem 7: 04/22/22 13:27 04/23/22 10:56 Labs: Abnormal Lab Results - Last 24 Hours (Table) 04/23/22 04/23/22 04/24/22 Range/Units 12:04 19:12 06:07 POC Glucose (mg/dL) 141 H 65 L 120 H (70-110) mg/dL Microbiology - Last 24 Hours (Table) 04/22/22 13:25 Blood Culture - Preliminary Blood No Growth after 24 hours 04/22/22 13:10 Blood Culture - Preliminary Blood No Growth after 24 hours
[2022-04-24 11:59] LABS: Glucose,Whole Blood 153 mg/dL (70-110)
[2022-04-24 14:51] LABS: African American GFR (CKD) 11.3 (60.0-200.0); Blood Urea Nitrogen 76.8 mg/dL (9.0-27.0); Calcium 9.3 mg/dL (8.7-10.3); Non-African American GFR(CKD) 9.7 (60.0-200.0); Potassium 3.5 mmol/L (3.5-5.5)
[2022-04-24 16:55] LABS: Glucose,Whole Blood 271 mg/dL (70-110)
--- NOTE | 2022-04-24 19:22 | P.HPIM ---
History of Present Illness H&P Date: 04/23/22 This is a 72-year-old male who presents emergency Department complaining of overwhelming fatigue and shortness of breath. Patient was in the hospital earlier this month for for 5 days for influenza a. According to the the patient went home and steroids and breathing treatments. Patient states he went home and is not getting any better and in fact getting worse. He was told he had have dialysis but initially he refused but at this point time if he needs dialysis and states that he will take. Patient is states he is been having progressive kidney failure and recently he was told he had states 5 kidney failure. Patient denies any recent fever chills. Patient denies any cough. Patient does have edema of the legs but he doesn't think it's increased compared to baseline. Patient denies any chest pain or palpitations. Patient has nausea vomiting or diarrhea. Review of Systems GENERAL: Patient denies fever. Denies chills. EYES: Denies blurred vision. Denies vision changes. Denies eye pain. EARS, NOSE, MOUTH, & THROAT: Denies headache. Denies sore throat. Denies ear pain. RESPIRATORY: cough and shortness of breath. clear sputum production. Denies hemoptysis. CARDIOVASCULAR: Denies chest pain or pressure. Denies palpitations. Denies arrhythmias. GASTROINTESTINAL: Denies abdominal pain. Denies diarrhea. Denies constipation. has nausea. Denies vomiting. Denies heartburn. Denies blood in the stool. GENITOURINARY: Denies urinary frequency. Denies burning. Denies dysuria. Denies cloudy urine. Denies blood in the urine. MUSCULOSKELETAL: Denies myalgias. Denies joint swelling. Denies decreased range of motion beyond patients baseline. INTEGUMENTARY: positive for pruitis and rash loer extrem. PSYCHIATRIC: Denies suicidal or homicial ideations. ENDOCRINE: Denies weight change. Denies polydipsia. Denies polyuria. HEMATOLOGIC: Denies bleeding disorders. Past Medical History Past Medical History: Coronary Artery Disease (CAD), Chest Pain / Angina, Heart Failure, Diabetes Mellitus, Eye Disorder, GERD/Reflux, Hyperlipidemia, Hypertension, Myocardial Infarction ([place]), Pneumonia, Renal Disease Additional Past Medical History / Comment(s): IDDM type II, bilateral diabetic retinopathy, CKD stage III, nephrolithiasis, bronchitis, L pleural effusion, re cently received 2 iron infusions for anemia. Last Myocardial Infarction Date:: 2009 History of Any Multi-Drug Resistant Organisms: None Reported Past Surgical History: Coronary Bypass/CABG, Heart Catheterization, Heart Cathet erization With Stent Additional Past Surgical History / Comment(s): 2009 CABG 5 vessel, bilateral cataract removals/lens implants, oral surgery Past Anesthesia/Blood Transfusion Reactions: No Reported Reaction, Motion Sickness Date of Last Stent Placement:: 08/05/17 Past Psychological History: No Psychological Hx Reported Additional Psychological History / Comment(s): Pt resides with his spouse. He uses no assistive device. He drives some. He has a glucometer and pulse ox. Smoking Status: Never smoker Past Alcohol Use History: Rare Past Drug Use History: None Reported - Past Family History Mother Family Medical History: CVA/TIA, Diabetes Mellitus Father Family Medical History: CVA/TIA, Myocardial Infarction ([place]) Additional Family Medical History / Comment(s): mother: htn, dm. Medications and Allergies Home Medications Medication Instructions Recorded Confirmed Type RX: Aspirin EC [Ecotrin Low Dose] 81 mg PO DAILY 10/27/13 04/22/22 History RX: Famotidine [Pepcid] 20 mg PO DAILY 10/27/13 04/22/22 History RX: Atorvastatin [Lipitor] 20 mg PO HS 12/30/16 04/22/22 History RX: Clopidogrel [Plavix] 75 mg PO DAILY #90 tab 07/15/17 04/22/22 Rx RX: Nitroglycerin Sl Tabs 0.4 mg PO Q5M PRN 07/18/19 04/22/22 History [Nitrostat] RX: carvediloL [Coreg] 25 mg PO BID 07/18/19 04/22/22 History RX: Ergocalciferol [Vitamin D2 1,250 mcg PO KEATING 04/11/22 04/22/22 History (1250 Mcg = 82493 Iu)] RX: Ferrous Sulfate [Feosol] 325 mg PO DAILY 04/11/22 04/22/22 History RX: INSULIN LISPRO (humaLOG) 18 units SQ AC-BRKFST 04/11/22 04/22/22 History [humaLOG] RX: Insulin Glargine,Hum.rec.anlog 30 unit SQ DAILY 04/11/22 04/22/22 History [Lantus Solostar Pen] RX: Insulin Lispro [humaLOG 10 units SQ AC-BID@1200,1800 04/11/22 04/22/22 History Kwikpen] RX: Isosorbide Mononitrate 30 mg PO DAILY 04/11/22 04/22/22 History [Isosorbide Mononitrate ER] calcitrioL [Calcitriol] 0.25 mcg PO MOTUWETHFR 04/11/22 04/22/22 History RX: Calcium Acetate [PhosLo] 667 mg PO TID-W/MEALS #0 tab 04/15/22 04/22/22 Rx RX: Sodium Bicarbonate Tab 650 mg PO TID tab 04/15/22 04/22/22 Rx RX: hydrALAZINE HCL [Apresoline] 100 mg PO TID #180 tab 04/15/22 04/22/22 Rx Furosemide [Lasix] 60 mg PO BID 04/22/22 04/22/22 History Allergies Allergy/AdvReac Type Severity Reaction Status Date / Time No Known Allergies Allergy Verified 04/22/22 15:14 Physical Exam Osteopathic Statement: *. No significant issues noted on an osteopathic structural exam other than those noted in the History and Physical/Consult. Vitals: Vital Signs Temp Pulse Pulse Resp BP BP Pulse Ox 04/23/22 11:38 97.6 F 61 18 174/95 96 04/23/22 08:30 97.7 F 53 L 18 182/84 94 L 04/23/22 04:00 97.9 F 64 16 179/94 91 L 04/23/22 02:00 55 L 16 04/23/22 00:48 69 17 04/23/22 00:00 97.4 F L 69 17 164/80 92 L 04/22/22 20:00 96.9 F L 74 18 184/89 91 L 04/22/22 18:53 97.9 F 63 18 195/82 94 L 04/22/22 18:50 60 20 180/81 94 L 04/22/22 18:43 80 18 160/80 98 04/22/22 14:26 20 04/22/22 14:25 58 L 20 168/102 94 L 04/22/22 12:13 98 F 64 22 173/91 94 L Intake and Output 04/22/22 04/23/22 04/23/22 22:59 06:59 14:59 Output Total 2 150 Balance -2 -150 Output: Urine 2 150 Other: Voiding Method Urinal Urinal # Voids 250 Weight 97.522 kg 98.2 kg GENERAL: This is a 72-year-old [place]. Pleasant and cooperative. HEENT: Head is atraumatic, normocephalic. Pupils are equal, round, and reactive to light. Sclerae anicteric. Conjunctivae are clear. Mucus membranes of the mouth are dry. Neck is supple. RESPIRATORY: Bibasilar crackles with decrease area exchange bilateral CARDIOVASCULAR: Regular rate and rhythm. S1 and S2 noted. No systolic or diastolic murmur auscultated. No JVD noted. No S3 or S4 noted. GASTROINTESTINAL: No distention noted. Abdomen soft and round. Normal active bowel sounds auscultated x 4 quadrants. No pain or tenderness noted upon palpation. INTEGUMENTARY: Bilateral stasis dermatitis and chronic changes of lower extremities EXTREMITIES: 2+ peripheral pulses. No evidence of peripheral edema. No calf tenderness noted. NEUROLOGIC: Cranial nerves II-XII intact. PSYCHIATRIC: Awake, alert, and oriented X 3. Appropriate affect. Intact judgement and insight. Results CBC & Chem 7: 04/22/22 13:27 04/24/22 07:30 Labs: Abnormal Lab Results - Last 24 Hours (Table) 04/22/22 04/22/22 04/22/22 Range/Units 13:27 13:27 13:27 WBC 14.9 H (3.8-10.6) k/uL RBC 3.39 L (4.30-5.90) m/uL Hgb 10.2 L (13.0-17.5) gm/dL Hct 32.5 L (39.0-53.0) % Neutrophils # 13.6 H (1.3-7.7) k/uL Lymphocytes # 0.7 L (1.0-4.8) k/uL Potassium 3.4 L (3.5-5.1) mmol/L Chloride 110 H (98-107) mmol/L BUN 78 H (9-20) mg/dL Creatinine 5.86 H (0.66-1.25) mg/dL Glucose 220 H (74-99) mg/dL POC Glucose (mg/dL) (70-110) mg/dL Troponin I 0.267 H* (0.000-0.034) ng/mL Albumin 3.3 L (3.5-5.0) g/dL 04/22/22 04/22/22 04/22/22 Range/Units 15:09 20:32 21:18 WBC (3.8-10.6) k/uL RBC (4.30-5.90) m/uL Hgb (13.0-17.5) gm/dL Hct (39.0-53.0) % Neutrophils # (1.3-7.7) k/uL Lymphocytes # (1.0-4.8) k/uL Potassium (3.5-5.1) mmol/L Chloride (98-107) mmol/L BUN (9-20) mg/dL Creatinine (0.66-1.25) mg/dL Glucose (74-99) mg/dL POC Glucose (mg/dL) 269 H (70-110) mg/dL Troponin I 0.259 H* 0.253 H* (0.000-0.034) ng/mL Albumin (3.5-5.0) g/dL 04/23/22 04/23/22 Range/Units 06:25 10:56 WBC (3.8-10.6) k/uL RBC (4.30-5.90) m/uL Hgb (13.0-17.5) gm/dL Hct (39.0-53.0) % Neutrophils # (1.3-7.7) k/uL Lymphocytes # (1.0-4.8) k/uL Potassium 3.2 L (3.5-5.1) mmol/L Chloride 111 H (98-107) mmol/L BUN 81 H (9-20) mg/dL Creatinine 5.85 H (0.66-1.25) mg/dL Glucose 152 H (74-99) mg/dL POC Glucose (mg/dL) 192 H (70-110) mg/dL Troponin I (0.000-0.034) ng/mL Albumin (3.5-5.0) g/dL Thrombosis Risk Factor Assmnt - Choose All That Apply Any of the Below Risk Factors Present?: Yes Each Factor Represents 1 point: Obesity (BMI >25), Serious lung disease incl. pneumonia (< 1month), Swollen legs (current) Each Risk Factor Represents 2 Points: Age 61-74 years Other congenital or acquired thrombophilia - If yes, enter type in comment: No Thrombosis Risk Factor Assessment Total Risk Factor Score: 5 Thrombosis Risk Factor Assessment Level: High Risk Assessment and Plan (1) Chronic kidney failure Current Visit: Yes Status: Acute Code(s): N18.9 - CHRONIC KIDNEY DISEASE, UNSPECIFIED SNOMED Code(s): 05581726 (2) Elevated troponin Current Visit: Yes Status: Acute Code(s): R77.8 - OTHER SPECIFIED ABNORMALITIES OF PLASMA PROTEINS SNOMED Code(s): 381884701 (3) Pulmonary edema, acute Current Visit: Yes Status: Acute Code(s): J81.0 - ACUTE PULMONARY EDEMA SNOMED Code(s): 27866873 (4) Cellulitis Current Visit: No Status: Acute Code(s): L03.90 - CELLULITIS, UNSPECIFIED SNOMED Code(s): 627566032 (5) Congestive heart failure Current Visit: No Status: Acute Code(s): I50.9 - HEART FAILURE, UNSPECIFIED SNOMED Code(s): 78912557 (6) Influenza A Current Visit: No Status: Acute Code(s): J10.1 - FLU DUE TO OTH IDENT INFLUENZA VIRUS W OTH RESP MANIFEST SNOMED Code(s): 747895690 Plan: Patient is going to be admitted and seen by nephrology for immediate renal dialysis catheter will have to be placed prior to this. We'll continue to monitor labs and patient's overall guarded condition
--- NOTE | 2022-04-24 19:33 | P.PN ---
Subjective Progress Note Date: 04/24/22 Patient is a pleasant 72-year-old male admitted for chronic kidney disease post influenza A infection he'll undergo renal dialysis today as he has had his very sluggish fatigue and nauseated and his cough has been stable Objective - Vital Signs Vital signs: Vital Signs Temp 97.7 F 04/24/22 12:00 Pulse 65 04/24/22 12:00 Resp 18 04/24/22 12:00 BP 106/60 04/24/22 12:00 Pulse Ox 94 L 04/24/22 12:00 FiO2 Intake & Output 04/23/22 04/24/22 04/24/22 18:59 06:59 18:59 Intake Total 615 Output Total 787 500 650 Balance -172 -500 -650 Weight 82 kg Intake: IV 75 Oral 540 Output: Urine 700 500 650 Post Void Residual 87 Other: Voiding Method Urinal Urinal Urinal # Voids 1 2 - Exam GENERAL: This is a 72-year-old [place]. Pleasant and cooperative. HEENT: Head is atraumatic, normocephalic. Pupils are equal, round, and reactive to light. Sclerae anicteric. Conjunctivae are clear. Mucus membranes of the mouth are dry. Neck is supple. RESPIRATORY: Bibasilar crackles with decrease area exchange bilateral CARDIOVASCULAR: Regular rate and rhythm. S1 and S2 noted. No systolic or diastolic murmur auscultated. No JVD noted. No S3 or S4 noted. GASTROINTESTINAL: No distention noted. Abdomen soft and round. Normal active bowel sounds auscultated x 4 quadrants. No pain or tenderness noted upon palpat ion. INTEGUMENTARY: Bilateral stasis dermatitis and chronic changes of lower extremities EXTREMITIES: 2+ peripheral pulses. No evidence of peripheral edema. No calf tenderness noted. NEUROLOGIC: Cranial nerves II-XII intact. PSYCHIATRIC: Awake, alert, and oriented X 3. Appropriate affect. Intact ju dgement and insight. - Labs CBC & Chem 7: 04/22/22 13:27 04/24/22 07:30 Labs: Abnormal Lab Results - Last 24 Hours (Table) 04/23/22 04/24/22 04/24/22 Range/Units 19:12 06:07 11:47 POC Glucose (mg/dL) 65 L 120 H 153 H (70-110) mg/dL Microbiology - Last 24 Hours (Table) 04/22/22 13:25 Blood Culture - Preliminary Blood No Growth after 24 hours 04/22/22 13:10 Blood Culture - Preliminary Blood No Growth after 24 hours Assessment and Plan (1) Chronic kidney failure Current Visit: Yes Status: Acute Code(s): N18.9 - CHRONIC KIDNEY DISEASE, UNSPECIFIED SNOMED Code(s): 42061168 (2) Elevated troponin Current Visit: Yes Status: Acute Code(s): R77.8 - OTHER SPECIFIED ABNORMALITIES OF PLASMA PROTEINS SNOMED Code(s): 712775788 (3) Pulmonary edema, acute Current Visit: Yes Status: Acute Code(s): J81.0 - ACUTE PULMONARY EDEMA SNOMED Code(s): 80285816 (4) Cellulitis Current Visit: No Status: Acute Code(s): L03.90 - CELLULITIS, UNSPECIFIED SNOMED Code(s): 337836280 (5) Congestive heart failure Current Visit: No Status: Acute Code(s): I50.9 - HEART FAILURE, UNSPECIFIED SNOMED Code(s): 27753668 (6) Encephalopathy acute Current Visit: No Status: Acute Code(s): G93.40 - ENCEPHALOPATHY, UNSPECIFIED SNOMED Code(s): 22849565 (7) Influenza A Current Visit: No Status: Acute Code(s): J10.1 - FLU DUE TO OTH IDENT INFLUENZA VIRUS W OTH RESP MANIFEST SNOMED Code(s): 001602375 Plan: Patient had dialysis catheter placed today and he'll undergo renal dialysis he's doing poorly now hopefully he'll do better after renal dialysis will continue to need to monitor his progress
[2022-04-24 20:25] LABS: Glucose,Whole Blood 133 mg/dL (70-110)
[2022-04-24] MEDS: ATORVASTATIN 20 MG TAB PO SCH (20:34)
[2022-04-24] MEDS: guaiFENesin 600 MG TABLET.ER PO SCH (20:58)
[2022-04-25 06:35] LABS: Glucose,Whole Blood 175 mg/dL (70-110)
[2022-04-25] MEDS: CALCIUM ACETATE 667 MG TAB PO SCH ×3 (07:01→17:26)
[2022-04-25] MEDS: INSULIN ASPART (NovoLOG) 100 UNIT/ML VIAL SQ SCH ×7 (07:01→21:00)
[2022-04-25] MEDS: carvediloL 12.5 MG TAB PO SCH ×2 (07:01→17:26)
[2022-04-25] MEDS: FUROSEMIDE 10 MG/ML 10 ML VIAL IV SCH ×2 (08:31→21:07)
[2022-04-25] MEDS: cloNIDine HCL 0.1 MG TAB PO SCH ×2 (09:00→21:07)
[2022-04-25 12:43] LABS: Glucose,Whole Blood 148 mg/dL (70-110)
[2022-04-25] MEDS: hydrALAZINE HCL 50 MG TAB PO SCH ×3 (12:44→21:07)
[2022-04-25] MEDS: guaiFENesin 600 MG TABLET.ER PO SCH ×2 (13:35→21:07)
[2022-04-25] MEDS: FAMOTIDINE 20 MG TAB PO SCH (13:35)
[2022-04-25] MEDS: ASPIRIN 81 MG PO SCH (13:35)
[2022-04-25] MEDS: ISOSORBIDE MONONITRATE ER 30 MG TAB.ER.24H PO SCH (13:35)
[2022-04-25] MEDS: FERROUS SULFATE 325 MG TAB PO SCH (13:36)
[2022-04-25] MEDS: INSULIN DETEMIR (LEVEMIR) 100 UNIT/ML SYR SQ SCH (13:36)
[2022-04-25] MEDS: amLODIPine 10 MG TAB PO SCH (13:36)
--- NOTE | 2022-04-25 14:01 | P.PN ---
Subjective This is a 72 year old male with a past medical history of coronary artery disease with 6V CABG (AGUILLON-LAD, VG-PDA, VG-OM1, VG-OM2, VG-OM3, VG-D1) in 2009, and PCI to the distal RCA 07/2017 and PCI of OM-3 in 08/2017, ischemic cardiomyopathy with EF 40%, congestive heart failure, hypertension, dyslipidemia, type 2 diabetes, stage V chronic kidney disease. He follows with Dr. Gong. Patient was recently hospitalized 2 weeks ago for influenza A and had recommended to undergo dialysis as an outpatient. He got home last Thursday however over last 2 days has been about the more shortness breath. Blood pressure has been elevated in the 170s to 180s. He denies any chest pain or pressure. He admits he makes some mild monitor urine. His last stenting was in 2017. He has been on the Plavix since that time. He admits to some history of being on Coumadin in the past however unsure what for. White blood cell count 14.9, hemoglobin 10.2, creatinine 5.8, troponin 0.26, 0.25, 0.25, proBNP 55,000. Troponin has been chronically elevated in the 0.1 - 0.2 range in the past. DIAGNOSTICS * EKG Sinus rhythm, normal axis, no significant ST or T wave abnormalities. * Echocardiogram in the office 12/2021 revealed EF of 40%, mild aortic regurgitation, moderate mitral regurgitation, dilated aorta at 4.0 cm. 04/24 Patient seen and examined. Patient still having some shortness breath. Blood pressure elevated 160s to 180s however patient just started on his first round of dialysis this morning. 04/25 Patient seen and examined. Patient underwent dialysis yesterday and today and states he is feeling somewhat better close to normal. Denies any chest pain or pressure. Shortness breath improving. Blood pressure better controlled 120s over 80s after dialysis. PHYSICAL EXAMINATION Vitals reviewed CONSTITUTIONAL: No apparent distress. HEENT: Head is normocephalic. Pupils are equal, round. Sclerae anicteric. Mucous membranes of the mouth are moist. No JVD. No carotid bruit. CHEST EXAMINATION: Lungs are diminished bilaterally to auscultation. No chest wall tenderness is noted on palpation or with deep breathing. HEART EXAMINATION: Regular rate and rhythm. S1, S2 heard. Systolic murmur at apex, No gallops or rub. ABDOMEN: Soft, nontender. Positive bowel sounds. EXTREMITIES: 2+ peripheral pulses, moderate bilateral lower extremity edema and no calf tenderness. NEUROLOGIC EXAMINATION: Patient is awake, alert and oriented x3. ASSESSMENT Acute on chronic heart failure with mildly reduced ejection fraction 40% Stage V chronic kidney disease with recent recommendations for HD outpt Coronary artery disease with 6V CABG (AGUILLON-LAD, VG-PDA, VG-OM1, VG-OM2, VG-OM3, VG-D1) in 2009, and PCI to the distal RCA 07/2017 and PCI of OM-3 in 08/2017 Ischemic cardiomyopathy with EF 40% Recent Influenza A 2 weeks ago Hypertension Dyslipidemia Type 2 diabetes PLAN Appears to be improving with dialysis. Blood pressure better controlled after dialysis. Continue with heart failure regimen. Continue with supportive care. No further workup from a cardiology standpoint. Please call with any questions. Objective - Vital Signs Vital signs: Vital Signs Temp 97.4 F L 04/25/22 12:45 Pulse 54 L 04/25/22 12:45 Resp 16 04/25/22 12:45 BP 128/73 04/25/22 12:45 Pulse Ox 95 04/25/22 12:00 FiO2 Intake & Output 04/24/22 04/25/22 04/25/22 18:59 06:59 18:59 Intake Total 400 400 Output Total 3050 550 2925 Balance -2650 -550 -2525 Weight 98 kg Intake: Hemodialysis 400 400 Output: Urine 650 550 525 Hemodialysis 2400 2400 Other: Voiding Method Urinal Urinal - Labs CBC & Chem 7: 04/22/22 13:27 04/24/22 07:30 Labs: Abnormal Lab Results - Last 24 Hours (Table) 04/24/22 04/24/22 04/24/22 Range/Units 07:30 16:50 20:24 Sodium 149 H (135-145) mmol/L BUN 76.8 H (9.0-27.0) mg/dL Creatinine 5.4 H (0.6-1.5) mg/dL Est GFR (CKD-EPI)AfAm 11.3 L (60.0-200.0) Est GFR (CKD-EPI)NonAf 9.7 L (60.0-200.0) Glucose 118 H (70-110) mg/dL POC Glucose (mg/dL) 271 H 133 H (70-110) mg/dL 04/25/22 04/25/22 Range/Units 06:34 12:41 Sodium (135-145) mmol/L BUN (9.0-27.0) mg/dL Creatinine (0.6-1.5) mg/dL Est GFR (CKD-EPI)AfAm (60.0-200.0) Est GFR (CKD-EPI)NonAf (60.0-200.0) Glucose (70-110) mg/dL POC Glucose (mg/dL) 175 H 148 H (70-110) mg/dL Microbiology - Last 24 Hours (Table) 04/22/22 13:10 Blood Culture - Preliminary Blood No Growth after 48 hours 04/22/22 13:25 Blood Culture - Preliminary Blood No Growth after 48 hours
--- NOTE | 2022-04-25 16:15 | P.PN ---
Subjective Progress Note Date: 04/25/22 Follow-up for progressive C daily 5 currently on dialysis. Had dibp-ic-xsrs dialysis for the last 2 days. Feels better. Denies any nausea vomiting diarrhea. Admits making urine. Objective - Vital Signs Vital signs: Vital Signs Temp 97.4 F L 04/25/22 12:45 Pulse 54 L 04/25/22 12:45 Resp 16 04/25/22 12:45 BP 128/73 04/25/22 12:45 Pulse Ox 95 04/25/22 12:00 FiO2 Intake & Output 04/24/22 04/25/22 04/25/22 18:59 06:59 18:59 Intake Total 400 400 Output Total 3050 550 292 Balance -0087 -550 -2728 Weight 98 kg Intake: Hemodialysis 400 400 Output: Urine 650 550 525 Hemodialysis 2400 2400 Other: Voiding Method Urinal Urinal - Exam No acute distress S1-S2 heard Decreased breath sounds Abdomen soft Right groin Duncan Trace edema - Labs CBC & Chem 7: 04/22/22 13:27 04/24/22 07:30 Labs: Abnormal Lab Results - Last 24 Hours (Table) 04/24/22 04/24/22 04/25/22 Range/Units 16:50 20:24 06:34 POC Glucose (mg/dL) 271 H 133 H 175 H (70-110) mg/dL 04/25/22 Range/Units 12:41 POC Glucose (mg/dL) 148 H (70-110) mg/dL Microbiology - Last 24 Hours (Table) 04/22/22 13:10 Blood Culture - Preliminary Blood No Growth after 72 hours 04/22/22 13:25 Blood Culture - Preliminary Blood No Growth after 72 hours Assessment and Plan Assessment: #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 Currently on dialysis. #2 CHF with systolic dysfunction EF of 35% #3 hypertension with chronic kidney disease #4 metabolic bone disease #5 volume overload #6 recent influenza infection Plan: #1 hemodialysis started on 04/23/2022. Next treatment tomorrow. #2 permacath and outpatient dialysis placement.
[2022-04-25 16:23] LABS: Glucose,Whole Blood 236 mg/dL (70-110)
[2022-04-25 19:58] LABS: Glucose,Whole Blood 147 mg/dL (70-110)
[2022-04-25] MEDS: ATORVASTATIN 20 MG TAB PO SCH (21:07)
[2022-04-26 06:42] LABS: Glucose,Whole Blood 107 mg/dL (70-110)
[2022-04-26] MEDS: INSULIN ASPART (NovoLOG) 100 UNIT/ML VIAL SQ SCH ×7 (06:45→21:41)
[2022-04-26] MEDS: CALCIUM ACETATE 667 MG TAB PO SCH ×3 (06:57→17:42)
[2022-04-26] MEDS: carvediloL 12.5 MG TAB PO SCH ×2 (08:26→17:40)
[2022-04-26] MEDS: amLODIPine 10 MG TAB PO SCH (08:30)
[2022-04-26] MEDS: cloNIDine HCL 0.1 MG TAB PO SCH ×2 (08:30→21:41)
[2022-04-26] MEDS: ISOSORBIDE MONONITRATE ER 30 MG TAB.ER.24H PO SCH (08:30)
[2022-04-26] MEDS: FERROUS SULFATE 325 MG TAB PO SCH (08:30)
[2022-04-26] MEDS: guaiFENesin 600 MG TABLET.ER PO SCH ×2 (08:30→21:41)
[2022-04-26] MEDS: FAMOTIDINE 20 MG TAB PO SCH (08:30)
[2022-04-26] MEDS: hydrALAZINE HCL 50 MG TAB PO SCH ×3 (08:30→21:41)
[2022-04-26] MEDS: INSULIN DETEMIR (LEVEMIR) 100 UNIT/ML SYR SQ SCH (08:30)
[2022-04-26] MEDS: FUROSEMIDE 10 MG/ML 10 ML VIAL IV SCH ×2 (08:31→21:41)
[2022-04-26] MEDS: ASPIRIN 81 MG PO SCH (08:31)
[2022-04-26 08:58] LABS: Potassium 3.3 mmol/L (3.5-5.1)
[2022-04-26 08:59] LABS: Calcium 8.7 mg/dL (8.4-10.2)
[2022-04-26 09:22] LABS: Basophils # (A) 0.1 k/uL (0-0.2); Basophils % (A) 1 %; Eosinophils # (A) 0.2 k/uL (0-0.7); Eosinophils % (A) 1 %; HCT 37.2 % (39.0-53.0); HGB 12.2 gm/dL (13.0-17.5); Lymphocytes # (A) 1.1 k/uL (1.0-4.8); Lymphocytes % (A) 9 %; MCH 31.8 pg (25.0-35.0); MCHC 32.9 g/dL (31.0-37.0); MCV 96.6 fL (80.0-100.0); Mean Platelet Volume 9.2; Monocytes # (A) 0.5 k/uL (0-1.0); Monocytes % (A) 4 %; Neutrophils # (A) 10.5 k/uL (1.3-7.7); Neutrophils % (A) 84 %; Platelet Count 204 k/uL (150-450); RBC 3.85 m/uL (4.30-5.90); RDW 14.3 % (11.5-15.5); WBC 12.5 k/uL (3.8-10.6)
[2022-04-26 12:08] LABS: Glucose,Whole Blood 86 mg/dL (70-110)
[2022-04-26 13:38] LABS: Glucose,Whole Blood 131 mg/dL (70-110)
[2022-04-26] MEDS ORDERED: Potassium Replacement Protocol 1 EACH MISC MISCELLANE PRN (14:16)
[2022-04-26] MEDS: POTASSIUM CHLORIDE ER 20 MEQ TAB.ER PO SCH ×2 (15:36→17:41)
--- NOTE | 2022-04-26 15:41 | P.PN ---
Subjective Progress Note Date: 04/26/22 Follow-up for progressive CKD 5 currently on dialysis. Had [id number] dialysis for the last 3 days. Feels better. Denies any nausea vomiting diarrhea. Admits making urine. Objective - Vital Signs Vital signs: Vital Signs Temp 97.6 F 04/26/22 08:24 Pulse 58 L 04/26/22 15:37 Resp 16 04/26/22 08:24 BP 127/67 04/26/22 15:37 Pulse Ox 96 04/26/22 15:37 FiO2 Intake & Output 04/25/22 04/26/22 04/26/22 18:59 06:59 18:59 Intake Total 880 0 Output Total 2925 100 150 Balance -2045 -100 -150 Weight 92.5 kg Intake: Oral 480 0 Hemodialysis 400 Output: Urine 525 100 150 Hemodialysis 2400 Other: Voiding Method Urinal Urinal # Voids 1 # Bowel Movements 1 - Exam No acute distress S1-S2 heard Decreased breath sounds Abdomen soft Right groin Duncan Trace edema - Labs CBC & Chem 7: 04/26/22 08:13 04/26/22 08:13 Labs: Abnormal Lab Results - Last 24 Hours (Table) 04/25/22 04/25/22 04/26/22 Range/Units 16:21 19:56 08:13 WBC 12.5 H (3.8-10.6) k/uL RBC 3.85 L (4.30-5.90) m/uL Hgb 12.2 L (13.0-17.5) gm/dL Hct 37.2 L (39.0-53.0) % Neutrophils # 10.5 H (1.3-7.7) k/uL Potassium (3.5-5.1) mmol/L BUN (9-20) mg/dL Creatinine (0.66-1.25) mg/dL Glucose (74-99) mg/dL POC Glucose (mg/dL) 236 H 147 H (70-110) mg/dL 04/26/22 04/26/22 Range/Units 08:13 13:36 WBC (3.8-10.6) k/uL RBC (4.30-5.90) m/uL Hgb (13.0-17.5) gm/dL Hct (39.0-53.0) % Neutrophils # (1.3-7.7) k/uL Potassium 3.3 L (3.5-5.1) mmol/L BUN 55 H (9-20) mg/dL Creatinine 4.70 H (0.66-1.25) mg/dL Glucose 101 H (74-99) mg/dL POC Glucose (mg/dL) 131 H (70-110) mg/dL Microbiology - Last 24 Hours (Table) 04/22/22 13:25 Blood Culture - Preliminary Blood No Growth after 96 hours 04/22/22 13:10 Blood Culture - Preliminary Blood No Growth after 96 hours Assessment and Plan Assessment: #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 Currently on dialysis. #2 CHF with systolic dysfunction EF of 35% #3 hypertension with chronic kidney disease #4 metabolic bone disease #5 volume overload #6 recent influenza infection Plan: #1 hemodialysis started on 04/23/2022. Next treatment on Thursday #2 permacath and outpatient dialysis placement.
[2022-04-26 17:11] LABS: Glucose,Whole Blood 110 mg/dL (70-110)
[2022-04-26 20:33] LABS: Glucose,Whole Blood 156 mg/dL (70-110)
[2022-04-26] MEDS: ATORVASTATIN 20 MG TAB PO SCH (21:41)
[2022-04-27 06:56] LABS: Glucose,Whole Blood 104 mg/dL (70-110)
[2022-04-27] MEDS: carvediloL 12.5 MG TAB PO SCH ×2 (06:56→17:59)
[2022-04-27] MEDS: INSULIN ASPART (NovoLOG) 100 UNIT/ML VIAL SQ SCH ×7 (06:56→21:48)
[2022-04-27] MEDS: INSULIN DETEMIR (LEVEMIR) 100 UNIT/ML SYR SQ SCH (06:59)
[2022-04-27] MEDS: CALCIUM ACETATE 667 MG TAB PO SCH ×3 (06:59→17:58)
[2022-04-27 07:48] LABS: Basophils # (A) 0.1 k/uL (0-0.2); Basophils % (A) 0 %; Eosinophils # (A) 0.2 k/uL (0-0.7); Eosinophils % (A) 1 %; HCT 37.6 % (39.0-53.0); HGB 12.4 gm/dL (13.0-17.5); Lymphocytes # (A) 1.2 k/uL (1.0-4.8); Lymphocytes % (A) 9 %; MCH 31.9 pg (25.0-35.0); MCV 96.8 fL (80.0-100.0); Monocytes # (A) 0.6 k/uL (0-1.0); Monocytes % (A) 4 %; Neutrophils # (A) 11.1 k/uL (1.3-7.7); Neutrophils % (A) 83 %; Platelet Count 174 k/uL (150-450); RBC 3.88 m/uL (4.30-5.90); RDW 14.4 % (11.5-15.5); WBC 13.4 k/uL (3.8-10.6)
[2022-04-27 08:10] LABS: Calcium 8.8 mg/dL (8.4-10.2); Potassium 3.7 mmol/L (3.5-5.1)
[2022-04-27] MEDS ORDERED: ERGOCALCIFEROL 1,250 MCG (50,000 IU) CAPSULE PO SCH (09:00)
[2022-04-27] MEDS: FERROUS SULFATE 325 MG TAB PO SCH (10:06)
[2022-04-27] MEDS: ISOSORBIDE MONONITRATE ER 30 MG TAB.ER.24H PO SCH (10:06)
[2022-04-27] MEDS: cloNIDine HCL 0.1 MG TAB PO SCH ×2 (10:06→21:52)
[2022-04-27] MEDS: FAMOTIDINE 20 MG TAB PO SCH (10:06)
[2022-04-27] MEDS: amLODIPine 10 MG TAB PO SCH (10:06)
[2022-04-27] MEDS: ASPIRIN 81 MG PO SCH (10:07)
[2022-04-27] MEDS: hydrALAZINE HCL 50 MG TAB PO SCH ×3 (10:07→21:52)
[2022-04-27] MEDS: guaiFENesin 600 MG TABLET.ER PO SCH ×2 (10:07→21:52)
[2022-04-27] MEDS: FUROSEMIDE 10 MG/ML 10 ML VIAL IV SCH ×2 (10:07→21:52)
--- NOTE | 2022-04-27 10:49 | P.PN ---
Subjective Progress Note Date: 04/27/22 Principal diagnosis: Patient is a 72-year-old male with history of chronic kidney disease NKF stage V with baseline creatinine about 4.5 mg/dL. Patient also has underlying CHF with ejection fraction 35-40%. He was recently hospitalized for influenza A and discharged home on 04/15/2022. He came in because of shortness of breath not feeling well for intake He was dialyzed 3 days in a row last dialysis was yesterday He is feeling somewhat better, has poor appetite no chest pain no nausea vomiting. He is known with diabetes type 2 with retinopathy nephrolithiasis and has history of coronary artery disease. Has had coronary artery bypass graft and cardiac catheterization with stents in the past Objective - Vital Signs Vital signs: Vital Signs Temp 98.0 F 04/27/22 04:00 Pulse 57 L 04/27/22 04:00 Resp 18 04/27/22 04:00 BP 154/77 04/27/22 04:00 Pulse Ox 95 04/27/22 04:00 FiO2 Intake & Output 04/26/22 04/27/22 04/27/22 18:59 06:59 18:59 Intake Total 118 Output Total 150 220 Balance -32 -220 Weight 89 kg Intake: Oral 118 Output: Urine 150 220 Other: Voiding Method Urinal Urinal # Bowel Movements 1 On examination awake alert oriented HEENT exam no JVP neck is supple no facial asymmetry Lungs are clear to auscultation good air entry bilaterally Heart sounds unremarkable no murmur rub gallop Abdomen soft nontender Extremity exam was trace edema Neurologically awake alert but has mild asterixis - Labs CBC & Chem 7: 04/27/22 07:11 04/27/22 07:11 Labs: Abnormal Lab Results - Last 24 Hours (Table) 04/26/22 04/26/22 04/27/22 Range/Units 13:36 20:32 07:11 WBC 13.4 H (3.8-10.6) k/uL RBC 3.88 L (4.30-5.90) m/uL Hgb 12.4 L (13.0-17.5) gm/dL Hct 37.6 L (39.0-53.0) % Neutrophils # 11.1 H (1.3-7.7) k/uL BUN (9-20) mg/dL Creatinine (0.66-1.25) mg/dL Glucose (74-99) mg/dL POC Glucose (mg/dL) 131 H 156 H (70-110) mg/dL 04/27/22 Range/Units 07:11 WBC (3.8-10.6) k/uL RBC (4.30-5.90) m/uL Hgb (13.0-17.5) gm/dL Hct (39.0-53.0) % Neutrophils # (1.3-7.7) k/uL BUN 60 H (9-20) mg/dL Creatinine 5.06 H (0.66-1.25) mg/dL Glucose 101 H (74-99) mg/dL POC Glucose (mg/dL) (70-110) mg/dL Microbiology - Last 24 Hours (Table) 04/22/22 13:25 Blood Culture - Preliminary Blood No Growth after 96 hours 04/22/22 13:10 Blood Culture - Preliminary Blood No Growth after 96 hours Assessment and Plan Assessment: Impression 1. ESRD secondary diabetic nephropathy last dialysis yesterday. Improved. Duncan catheter in the groin 2. Congestive heart failure compensated 3. Cardiomyopathy ejection fraction 35% with moderate to severe tricuspid regurgitation and pulmonary hypertension 4. History of coronary artery bypass graft and stenting 5. History of recent influenza A. 6. Hemoglobin is 12.4. Recommendation We'll be dialyzed tomorrow. UF goal is to liters or 3-1/2 hours. Pending placement of permanent access including a permacath as well as a fistula if possible
[2022-04-27 12:21] LABS: Glucose,Whole Blood 145 mg/dL (70-110)
[2022-04-27 17:03] LABS: Glucose,Whole Blood 150 mg/dL (70-110)
[2022-04-27 20:05] LABS: Glucose,Whole Blood 155 mg/dL (70-110)
[2022-04-27] MEDS: ATORVASTATIN 20 MG TAB PO SCH (21:52)
--- NOTE | 2022-04-28 00:36 | P.PN ---
Subjective Progress Note Date: 04/25/22 Patient is a pleasant 72-year-old male admitted for chronic kidney disease post influenza A infection he'll undergo renal dialysis today as he has had his very sluggish fatigue and nauseated . 04/25/2022 Patient is currently lying in the bed. Awake alert and oriented x3. Breathing status is getting better. Patient had hemodialysis yesterday. No complaints of nausea or vomiting. Blood pressure is better controlled. Apparently patient felt weak this afternoon after dialysis and slid down to the floor. Denies any hitting his head. Patient is back to bed now. No complaints of pain. Laboratory data reviewed. Current medications reviewed. Objective - Vital Signs Vital signs: Vital Signs Temp 97.5 F L 04/25/22 19:32 Pulse 65 04/25/22 19:32 Resp 16 04/25/22 19:32 BP 118/61 04/25/22 19:32 Pulse Ox 95 04/25/22 19:32 FiO2 Intake & Output 04/25/22 04/25/22 04/26/22 06:59 18:59 06:59 Intake Total 880 Output Total 550 2925 Balance -550 -2044 Weight 98 kg Intake: Oral 480 Hemodialysis 400 Output: Urine 550 525 Hemodialysis 2400 Other: Voiding Method Urinal - Exam - Exam GENERAL: This is a 72-year-old [place]. Pleasant and cooperative. HEENT: Head is atraumatic, normocephalic. Pupils are equal, round, and reactive to light. Sclerae anicteric. Conjunctivae are clear. Mucus membranes of the mo uth are dry. Neck is supple. RESPIRATORY: Bibasilar crackles with decrease area exchange bilateral CARDIOVASCULAR: Regular rate and rhythm. S1 and S2 noted. No systolic or diastolic murmur auscultated. No JVD noted. No S3 or S4 noted. GASTROINTESTINAL: No distention noted. Abdomen soft and round. Normal active bowel sounds auscultated x 4 quadrants. No pain or tenderness noted upon palpation. INTEGUMENTARY: Bilateral stasis dermatitis and chronic changes of lower extremities EXTREMITIES: 2+ peripheral pulses. No evidence of peripheral edema. No calf tenderness noted. NEUROLOGIC: Cranial nerves II-XII intact. PSYCHIATRIC: Awake, alert, and oriented X 3. Appropriate affect. 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 - Labs CBC & Chem 7: 04/27/22 07:11 04/27/22 07:11 Labs: Abnormal Lab Results - Last 24 Hours (Table) 04/25/22 04/25/22 04/25/22 Range/Units 06:34 12:41 16:21 POC Glucose (mg/dL) 175 H 148 H 236 H (70-110) mg/dL 04/25/22 Range/Units 19:56 POC Glucose (mg/dL) 147 H (70-110) mg/dL Microbiology - Last 24 Hours (Table) 04/22/22 13:10 Blood Culture - Preliminary Blood No Growth after 72 hours 04/22/22 13:25 Blood Culture - Preliminary Blood No Growth after 72 hours Assessment and Plan Assessment: Acute on chronic CHF with mildly reduced ejection fraction 40% ESRD currently on hemodialysis Volume overload Coronary artery disease history of CABG 6 vessel Hypertension Metabolic bone disease Diabetes type 2 Hyperlipidemia Ischemic cardiomyopathy ejection fraction 40% Recent influenza A infection on 04/11/2022 Plan: Will be continued aspirin and statins and Coreg. Also on Catapres 0.1 mg twice daily. Blood pressure is better controlled with hemodialysis. Patient is also on Lasix 60 mg every 12 hourly and hydralazine. Continue with insulin regimen insulin sliding scale. Symptomatic management. Failure to follow closely. Cardiology and nephrology is on board. Time with Patient: Greater than 30
--- NOTE | 2022-04-28 00:37 | P.PN ---
Subjective Progress Note Date: 04/26/22 Patient is a pleasant 72-year-old male admitted for chronic kidney disease post influenza A infection he'll undergo renal dialysis today as he has had his very sluggish fatigue and nauseated . 04/25/2022 Patient is currently lying in the bed. Awake alert and oriented x3. Breathing status is getting better. Patient had hemodialysis yesterday. No complaints of nausea or vomiting. Blood pressure is better controlled. Apparently patient felt weak this afternoon after dialysis and slid down to the floor. Denies any hitting his head. Patient is back to bed now. No complaints of pain. Laboratory data reviewed. 04/26/2022 Patient is currently resting in the bed. Awake alert and oriented x3. No complaints of chest pain or worsening shortness of breath. No nausea vomiting or abdominal pain or diarrhea. Patient has been having hemodialysis for the last 2 days. Feels better now. Blood pressure is better controlled. Patient does make urine and is being continued on IV Lasix. Currently titrated down to room air. Nephrology and cardiology is on board. Laboratory test showed WBC 12.1 hemoglobin 12.1 platelets 204 sodium 139 potassium 3.3 chloride 105 bicarb is 27 BUN 55 creatinine 4.7 calcium 8.7. Current medications reviewed. Objective - Vital Signs Vital signs: Vital Signs Temp 97.4 F L 04/26/22 19:46 Pulse 53 L 04/26/22 19:46 Resp 18 04/26/22 19:46 BP 150/76 04/26/22 19:46 Pulse Ox 96 04/26/22 19:46 FiO2 Intake & Output 04/26/22 04/26/22 04/27/22 06:59 18:59 06:59 Intake Total 118 Output Total 100 150 120 Balance -100 -32 -120 Weight 92.5 kg Intake: Oral 118 Output: Urine 100 150 120 Other: Voiding Method Urinal Urinal # Voids 1 # Bowel Movements 1 - Exam - Exam GENERAL: This is a 72-year-old [place]. Pleasant and cooperative. HEENT: Head is atraumatic, normocephalic. Pupils are equal, round, and reactive to light. Sclerae anicteric. Conjunctivae are clear. Mucus membranes of the mouth are dry. Neck is supple. RESPIRATORY: Bibasilar crackles with decrease area exchange bilateral CARDIOVASCULAR: Regular rate and rhythm. S1 and S2 noted. No systolic or diastolic murmur auscultated. No JVD noted. No S3 or S4 noted. GASTROINTESTINAL: No distention noted. Abdomen soft and round. Normal active bowel sounds auscultated x 4 quadrants. No pain or tenderness noted upon palpation. INTEGUMENTARY: Bilateral stasis dermatitis and chronic changes of lower extremities EXTREMITIES: 2+ peripheral pulses. No evidence of peripheral edema. No calf tenderness noted. NEUROLOGIC: Cranial nerves II-XII intact. PSYCHIATRIC: Awake, alert, and oriented X 3. Appropriate affect. Intact judgement and insight. - Labs CBC & Chem 7: 04/27/22 07:11 04/27/22 07:11 Labs: Abnormal Lab Results - Last 24 Hours (Table) 04/26/22 04/26/22 04/26/22 Range/Units 08:13 08:13 13:36 WBC 12.5 H (3.8-10.6) k/uL RBC 3.85 L (4.30-5.90) m/uL Hgb 12.2 L (13.0-17.5) gm/dL Hct 37.2 L (39.0-53.0) % Neutrophils # 10.5 H (1.3-7.7) k/uL Potassium 3.3 L (3.5-5.1) mmol/L BUN 55 H (9-20) mg/dL Creatinine 4.70 H (0.66-1.25) mg/dL Glucose 101 H (74-99) mg/dL POC Glucose (mg/dL) 131 H (70-110) mg/dL 04/26/22 Range/Units 20:32 WBC (3.8-10.6) k/uL RBC (4.30-5.90) m/uL Hgb (13.0-17.5) gm/dL Hct (39.0-53.0) % Neutrophils # (1.3-7.7) k/uL Potassium (3.5-5.1) mmol/L BUN (9-20) mg/dL Creatinine (0.66-1.25) mg/dL Glucose (74-99) mg/dL POC Glucose (mg/dL) 156 H (70-110) mg/dL Microbiology - Last 24 Hours (Table) 04/22/22 13:25 Blood Culture - Preliminary Blood No Growth after 96 hours 04/22/22 13:10 Blood Culture - Preliminary Blood No Growth after 96 hours Assessment and Plan Assessment: Acute on chronic CHF with mildly reduced ejection fraction 40% ESRD started on hemodialysis Volume overload Coronary artery disease history of CABG 6 vessel Hypertension Metabolic bone disease Diabetes type 2 Hyperlipidemia Ischemic cardiomyopathy ejection fraction 40% Recent influenza A infection on 04/11/2022 Plan: Will be continued aspirin and statins and Coreg. Also on Catapres 0.1 mg twice daily. Blood pressure is better controlled with hemodialysis. Patient is also on Lasix 60 mg every 12 hourly and hydralazine.Patient does make urine. Continue with insulin regimen insulin sliding scale. Symptomatic management. continue to follow closely. Cardiology and nephrology is on board. Time with Patient: Greater than 30
--- NOTE | 2022-04-28 00:39 | P.PN ---
Subjective Progress Note Date: 04/27/22 Patient is a pleasant 72-year-old male admitted for chronic kidney disease post influenza A infection he'll undergo renal dialysis today as he has had his very sluggish fatigue and nauseated . 04/25/2022 Patient is currently lying in the bed. Awake alert and oriented x3. Breathing status is getting better. Patient had hemodialysis yesterday. No complaints of nausea or vomiting. Blood pressure is better controlled. Apparently patient felt weak this afternoon after dialysis and slid down to the floor. Denies any hitting his head. Patient is back to bed now. No complaints of pain. Laboratory data reviewed. 04/26/2022 Patient is currently resting in the bed. Awake alert and oriented x3. No complaints of chest pain or worsening shortness of breath. No nausea vomiting or abdominal pain or diarrhea. Patient has been having hemodialysis for the last 2 days. Feels better now. Blood pressure is better controlled. Patient does make urine and is being continued on IV Lasix. Currently titrated down to room air. Nephrology and cardiology is on board. Laboratory test showed WBC 12.1 hemoglobin 12.1 platelets 204 sodium 139 potassium 3.3 chloride 105 bicarb is 27 BUN 55 creatinine 4.7 calcium 8.7. 04/27/2022 Patient is currently resting in bed. Awake alert and oriented x3. Patient was dialyzed for the last 3 days. Breathing status is better. No complaints of nausea or vomiting. No chest pain. No cough or sputum production. Laboratory test showed WBC 7.4 hemoglobin 12.4 and platelets 174 BUN 16 creatinine 5.06 and blood sugar is 101. No complaints of dizziness or lighthe adedness.. Current medications reviewed. Objective - Vital Signs Vital signs: Vital Signs Temp 97.9 F 04/27/22 16:00 Pulse 53 L 04/27/22 16:00 Resp 18 04/27/22 16:00 BP 159/77 04/27/22 16:00 Pulse Ox 96 04/27/22 16:00 FiO2 Intake & Output 04/27/22 04/27/22 04/28/22 06:59 18:59 06:59 Intake Total 360 Output Total 220 Balance -220 360 Weight 89 kg Intake: Oral 360 Output: Urine 220 Other: Voiding Method Urinal Urinal - Exam - Exam GENERAL: This is a 72-year-old [place]. Pleasant and cooperative. HEENT: Head is atraumatic, normocephalic. Pupils are equal, round, and reactive to light. Sclerae anicteric. Conjunctivae are clear. Mucus membranes of the mouth are dry. Neck is supple. RESPIRATORY: Bibasilar crackles with decrease area exchange bilateral CARDIOVASCULAR: Regular rate and rhythm. S1 and S2 noted. No systolic or diastolic murmur auscultated. No JVD noted. No S3 or S4 noted. GASTROINTESTINAL: No distention noted. Abdomen soft and round. Normal active bowel sounds auscultated x 4 quadrants. No pain or tenderness noted upon palpation. INTEGUMENTARY: Bilateral stasis dermatitis and chronic changes of lower extremities EXTREMITIES: 2+ peripheral pulses. No evidence of peripheral edema. No calf tenderness noted. NEUROLOGIC: Cranial nerves II-XII intact. PSYCHIATRIC: Awake, alert, and oriented X 3. Appropriate affect. Intact judgement and insight. - Labs CBC & Chem 7: 04/27/22 07:11 04/27/22 07:11 Labs: Abnormal Lab Results - Last 24 Hours (Table) 04/27/22 04/27/22 04/27/22 Range/Units 07:11 07:11 12:20 WBC 13.4 H (3.8-10.6) k/uL RBC 3.88 L (4.30-5.90) m/uL Hgb 12.4 L (13.0-17.5) gm/dL Hct 37.6 L (39.0-53.0) % Neutrophils # 11.1 H (1.3-7.7) k/uL BUN 60 H (9-20) mg/dL Creatinine 5.06 H (0.66-1.25) mg/dL Glucose 101 H (74-99) mg/dL POC Glucose (mg/dL) 145 H (70-110) mg/dL 04/27/22 04/27/22 Range/Units 17:02 20:03 WBC (3.8-10.6) k/uL RBC (4.30-5.90) m/uL Hgb (13.0-17.5) gm/dL Hct (39.0-53.0) % Neutrophils # (1.3-7.7) k/uL BUN (9-20) mg/dL Creatinine (0.66-1.25) mg/dL Glucose (74-99) mg/dL POC Glucose (mg/dL) 150 H 155 H (70-110) mg/dL Microbiology - Last 24 Hours (Table) 04/22/22 13:25 Blood Culture - Preliminary Blood No Growth after 120 hours 04/22/22 13:10 Blood Culture - Preliminary Blood No Growth after 120 hours Assessment and Plan Assessment: Acute on chronic CHF with mildly reduced ejection fraction 40% ESRD started on hemodialysis Volume overload Coronary artery disease history of CABG 6 vessel Hypertension Metabolic bone disease Diabetes type 2 Hyperlipidemia Ischemic cardiomyopathy ejection fraction 40% Recent influenza A infection on 04/11/2022 Plan: Will be continued aspirin and statins and Coreg. Also on Catapres 0.1 mg twice daily. Blood pressure is better controlled with hemodialysis x 3. Patient is also on Lasix 60 mg every 12 hourly and hydralazine.Patient does make urine. Continue with insulin regimen insulin sliding scale. Symptomatic management. continue to follow closely. Cardiology and nephrology is on board. Time with Patient: Greater than 30
[2022-04-28] MEDS: carvediloL 12.5 MG TAB PO SCH ×2 (06:28→17:01)
[2022-04-28] MEDS: CALCIUM ACETATE 667 MG TAB PO SCH ×3 (06:28→17:04)
[2022-04-28 07:22] LABS: Glucose,Whole Blood 123 mg/dL (70-110)
[2022-04-28] MEDS ORDERED: ALTEPLASE 2 MG VIAL (CATHFLO) ONE (08:00)
[2022-04-28] MEDS: INSULIN ASPART (NovoLOG) 100 UNIT/ML VIAL SQ SCH ×7 (08:43→20:12)
[2022-04-28 08:45] LABS: Basophils # (A) 0.1 k/uL (0-0.2); Basophils % (A) 1 %; Eosinophils # (A) 0.2 k/uL (0-0.7); Eosinophils % (A) 2 %; HGB 12.1 gm/dL (13.0-17.5); Hypochromasia Slight; Lymphocytes # (A) 1.2 k/uL (1.0-4.8); Lymphocytes % (A) 10 %; MCH 32.2 pg (25.0-35.0); MCHC 32.7 g/dL (31.0-37.0); MCV 98.7 fL (80.0-100.0); Mean Platelet Volume 8.8; Monocytes # (A) 0.7 k/uL (0-1.0); Monocytes % (A) 6 %; Neutrophils # (A) 9.4 k/uL (1.3-7.7); Neutrophils % (A) 80 %; Platelet Count 184 k/uL (150-450); RBC 3.75 m/uL (4.30-5.90); WBC 11.7 k/uL (3.8-10.6)
[2022-04-28] MEDS: FUROSEMIDE 10 MG/ML 10 ML VIAL IV SCH ×2 (08:53→20:12)
[2022-04-28] MEDS: hydrALAZINE HCL 50 MG TAB PO SCH ×3 (08:54→20:11)
[2022-04-28] MEDS: ISOSORBIDE MONONITRATE ER 30 MG TAB.ER.24H PO SCH (08:54)
[2022-04-28] MEDS: FERROUS SULFATE 325 MG TAB PO SCH (08:54)
[2022-04-28] MEDS: guaiFENesin 600 MG TABLET.ER PO SCH ×2 (08:54→20:12)
[2022-04-28] MEDS: amLODIPine 10 MG TAB PO SCH (08:54)
[2022-04-28] MEDS: ASPIRIN 81 MG PO SCH (08:54)
[2022-04-28] MEDS: cloNIDine HCL 0.1 MG TAB PO SCH ×2 (08:54→20:11)
[2022-04-28] MEDS: FAMOTIDINE 20 MG TAB PO SCH (08:54)
[2022-04-28 08:57] LABS: Calcium 8.8 mg/dL (8.4-10.2); Potassium 3.6 mmol/L (3.5-5.1)
--- NOTE | 2022-04-28 10:57 | P.PN ---
Subjective Progress Note Date: 04/28/22 Principal diagnosis: Patient is a 72-year-old male with history of chronic kidney disease NKF stage V with baseline creatinine about 4.5 mg/dL. Patient also has underlying CHF with ejection fraction 35-40%. He was recently hospitalized for influenza A and discharged home on 04/15/2022. He came in because of shortness of breath not feeling well for intake He was dialyzed 3 days in a row last dialysis was day before yesterday. According to urinate the hemodialysis nurse the catheter is not functioning well. He has a Duncan in his right groin. He is feeling somewhat better, has poor appetite no chest pain no nausea vomiting. He is known with diabetes type 2 with retinopathy nephrolithiasis and has history of coronary artery disease. Has had coronary artery bypass graft and cardiac catheterization with stents in the past Objective - Vital Signs Vital signs: Vital Signs Temp 97.6 F 04/28/22 08:00 Pulse 55 L 04/28/22 08:00 Resp 16 04/28/22 08:00 BP 153/82 04/28/22 08:00 Pulse Ox 96 04/28/22 08:00 FiO2 Intake & Output 04/27/22 04/28/22 04/28/22 18:59 06:59 18:59 Intake Total 360 Output Total 600 Balance 360 -600 Weight 87.5 kg Intake: Oral 360 Output: Urine 600 Other: Voiding Method Urinal Urinal On examination he looks somewhat tired and fatigued. HEENT exam no JVP neck is supple no facial asymmetry Lungs are clear to auscultation good air entry bilaterally Heart sounds unremarkable Abdomen soft nontender Extremity exam edema Neurologically awake alert oriented. - Labs CBC & Chem 7: 04/28/22 08:14 04/28/22 08:14 Labs: Abnormal Lab Results - Last 24 Hours (Table) 04/27/22 04/27/22 04/27/22 Range/Units 12:20 17:02 20:03 WBC (3.8-10.6) k/uL RBC (4.30-5.90) m/uL Hgb (13.0-17.5) gm/dL Hct (39.0-53.0) % Neutrophils # (1.3-7.7) k/uL BUN (9-20) mg/dL Creatinine (0.66-1.25) mg/dL Glucose (74-99) mg/dL POC Glucose (mg/dL) 145 H 150 H 155 H (70-110) mg/dL 04/28/22 04/28/22 04/28/22 Range/Units 07:21 08:14 08:14 WBC 11.7 H (3.8-10.6) k/uL RBC 3.75 L (4.30-5.90) m/uL Hgb 12.1 L (13.0-17.5) gm/dL Hct 37.0 L (39.0-53.0) % Neutrophils # 9.4 H (1.3-7.7) k/uL BUN 69 H (9-20) mg/dL Creatinine 5.74 H (0.66-1.25) mg/dL Glucose 130 H (74-99) mg/dL POC Glucose (mg/dL) 123 H (70-110) mg/dL Microbiology - Last 24 Hours (Table) 04/22/22 13:25 Blood Culture - Preliminary Blood No Growth after 120 hours 04/22/22 13:10 Blood Culture - Preliminary Blood No Growth after 120 hours Assessment and Plan Assessment: Impression 1. ESRD secondary diabetic nephropathy last dialysis yesterday. Improved. Duncan catheter in the right groin, not very functional 2. Congestive heart failure compensated 3. Cardiomyopathy ejection fraction 35% with moderate to severe tricuspid regurgitation and pulmonary hypertension 4. History of coronary artery bypass graft and stenting 5. History of recent influenza A. 6. Hemoglobin is 12.4. Recommendation 1. Will instill TPA in the Duncan for 2 hours and try to dialyze him today otherwise we'll have to put of permacath. 2. Consider peritoneal dialysis. Patient will need to be educated about this. 3. Consult vascular regarding a permacath
[2022-04-28] MEDS ORDERED: ALTEPLASE 2 MG VIAL (CATHFLO) IV STA ×2 (11:06→11:07)
[2022-04-28 12:24] LABS: Glucose,Whole Blood 146 mg/dL (70-110)
[2022-04-28 16:53] LABS: Glucose,Whole Blood 129 mg/dL (70-110)
[2022-04-28] MEDS: INSULIN DETEMIR (LEVEMIR) 100 UNIT/ML SYR SQ SCH (17:01)
[2022-04-28 19:59] LABS: Glucose,Whole Blood 206 mg/dL (70-110)
[2022-04-28] MEDS: ATORVASTATIN 20 MG TAB PO SCH (20:12)
[2022-04-29 06:12] LABS: Glucose,Whole Blood 140 mg/dL (70-110)
[2022-04-29] MEDS: CALCIUM ACETATE 667 MG TAB PO SCH ×4 (06:33→17:12)
[2022-04-29] MEDS: INSULIN DETEMIR (LEVEMIR) 100 UNIT/ML SYR SQ SCH (06:33)
[2022-04-29] MEDS: carvediloL 12.5 MG TAB PO SCH ×2 (06:33→17:12)
[2022-04-29] MEDS: INSULIN ASPART (NovoLOG) 100 UNIT/ML VIAL SQ SCH ×7 (06:34→20:44)
[2022-04-29 07:34] LABS: Glucose,Whole Blood 151 mg/dL (70-110)
[2022-04-29 08:38] LABS: Basophils # (A) 0.1 k/uL (0-0.2); Basophils % (A) 1 %; Eosinophils # (A) 0.2 k/uL (0-0.7); Eosinophils % (A) 2 %; HCT 35.8 % (39.0-53.0); HGB 11.7 gm/dL (13.0-17.5); Lymphocytes # (A) 1.2 k/uL (1.0-4.8); Lymphocytes % (A) 11 %; MCH 31.7 pg (25.0-35.0); MCHC 32.8 g/dL (31.0-37.0); MCV 96.9 fL (80.0-100.0); Mean Platelet Volume 9.1; Monocytes # (A) 0.5 k/uL (0-1.0); Monocytes % (A) 5 %; Neutrophils % (A) 81 %; Platelet Count 158 k/uL (150-450); RBC 3.69 m/uL (4.30-5.90); RDW 14.3 % (11.5-15.5); WBC 11.1 k/uL (3.8-10.6)
[2022-04-29 08:54] LABS: Calcium 8.2 mg/dL (8.4-10.2); Magnesium 2.3 mg/dL (1.6-2.3); Phosphorus 4.5 mg/dL (2.5-4.5); Potassium 3.6 mmol/L (3.5-5.1)
[2022-04-29] MEDS: FUROSEMIDE 10 MG/ML 10 ML VIAL IV SCH (09:18)
[2022-04-29] MEDS: hydrALAZINE HCL 50 MG TAB PO SCH ×3 (09:18→22:53)
[2022-04-29] MEDS: FERROUS SULFATE 325 MG TAB PO SCH (09:19)
[2022-04-29] MEDS: amLODIPine 10 MG TAB PO SCH (09:19)
[2022-04-29] MEDS: guaiFENesin 600 MG TABLET.ER PO SCH ×2 (09:19→20:44)
[2022-04-29] MEDS: ISOSORBIDE MONONITRATE ER 30 MG TAB.ER.24H PO SCH (09:19)
[2022-04-29] MEDS: cloNIDine HCL 0.1 MG TAB PO SCH ×2 (09:19→20:44)
[2022-04-29] MEDS: FAMOTIDINE 20 MG TAB PO SCH (09:19)
[2022-04-29] MEDS: ASPIRIN 81 MG PO SCH (09:19)
[2022-04-29 12:17] LABS: Glucose,Whole Blood 203 mg/dL (70-110)
[2022-04-29] MEDS ORDERED: POTASSIUM CHLORIDE ER 20 MEQ TAB.ER PO STA (13:00)
--- NOTE | 2022-04-29 13:01 | P.PN ---
Subjective Patient is seen in follow-up for chronic kidney disease stage V started on hemodialysis this admission. Received 2 hour treatment yesterday due to malfunctioning catheter. Currently resting in bed. Hemodynamically stable. Denies chest pain or shortness of breath. On room air. Vital signs are stable. General: Awake. No acute distress. HEENT: Head exam is unremarkable. LUNGS: Breath sounds decreased. HEART: Rate and Rhythm are regular. ABDOMEN: Soft, no distention. EXTREMITITES: Trace edema. Objective - Vital Signs Vital signs: Vital Signs Temp 96.6 F L 04/29/22 12:54 Pulse 53 L 04/29/22 12:54 Resp 18 04/29/22 12:54 BP 100/55 04/29/22 12:54 Pulse Ox 96 04/29/22 12:54 FiO2 Intake & Output 04/28/22 04/29/22 04/29/22 18:59 06:59 18:59 Intake Total 480 180 Output Total 2150 100 Balance -1670 -100 180 Weight 90.1 kg 90.1 kg Intake: Oral 180 180 Hemodialysis 300 Output: Urine 150 100 Hemodialysis 2000 Other: Voiding Method Urinal Urinal # Voids 1 # Bowel Movements 0 - Labs CBC & Chem 7: 04/29/22 07:52 04/29/22 07:52 Labs: Abnormal Lab Results - Last 24 Hours (Table) 04/28/22 04/28/22 04/29/22 Range/Units 16:51 19:58 06:11 WBC (3.8-10.6) k/uL RBC (4.30-5.90) m/uL Hgb (13.0-17.5) gm/dL Hct (39.0-53.0) % Neutrophils # (1.3-7.7) k/uL BUN (9-20) mg/dL Creatinine (0.66-1.25) mg/dL Glucose (74-99) mg/dL POC Glucose (mg/dL) 129 H 206 H 140 H (70-110) mg/dL Calcium (8.4-10.2) mg/dL 04/29/22 04/29/22 04/29/22 Range/Units 07:33 07:52 07:52 WBC 11.1 H (3.8-10.6) k/uL RBC 3.69 L (4.30-5.90) m/uL Hgb 11.7 L (13.0-17.5) gm/dL Hct 35.8 L (39.0-53.0) % Neutrophils # 9.0 H (1.3-7.7) k/uL BUN 60 H (9-20) mg/dL Creatinine 5.46 H (0.66-1.25) mg/dL Glucose 147 H (74-99) mg/dL POC Glucose (mg/dL) 151 H (70-110) mg/dL Calcium 8.2 L (8.4-10.2) mg/dL 04/29/22 Range/Units 12:15 WBC (3.8-10.6) k/uL RBC (4.30-5.90) m/uL Hgb (13.0-17.5) gm/dL Hct (39.0-53.0) % Neutrophils # (1.3-7.7) k/uL BUN (9-20) mg/dL Creatinine (0.66-1.25) mg/dL Glucose (74-99) mg/dL POC Glucose (mg/dL) 203 H (70-110) mg/dL Calcium (8.4-10.2) mg/dL Microbiology - Last 24 Hours (Table) 04/22/22 13:25 Blood Culture - Final Blood No Growth after 144 hours 04/22/22 13:10 Blood Culture - Final Blood No Growth after 144 hours Assessment and Plan Plan: Assessment: 1. Chronic kidney disease stage V, started on hemodialysis this admission. Has a groin catheter. 2. Acute on chronic systolic CHF with ejection fraction of 35% and moderate to severe tricuspid regurgitation and pulmonary hypertension. 3. Hypertension with chronic kidney disease. 4. Chronic kidney disease mineral bone disease maintained on calcitriol and PhosLo. Phosphorus level 4.5 today. 5. Diabetes mellitus. Plan: Plan: Hold hydralazine for systolic blood pressure less than 120. Vascular surgery to be notified for permacath placement. Plan for hemodialysis tomorrow. Change IV Lasix to oral torsemide 40 mg once daily.
[2022-04-29] MEDS ORDERED: LIDOCAINE 1% INJ 10MG/ML (30 ML VIAL-PF) SQ ONE (13:34)
[2022-04-29] MEDS ORDERED: HEPARIN SODIUM 1,000 UN/ML (10ML VL) ONE (13:36)
[2022-04-29] MEDS ORDERED: MIDAZOLAM 2 MG/2 ML VIAL IV ONE (13:37)
[2022-04-29] MEDS ORDERED: SODIUM CHLORIDE 0.9% 500 ML 500 ML IV ONE (13:37)
[2022-04-29] MEDS ORDERED: HEPARIN SODIUM 1,000 UN/ML (10ML VL) IV ONE (13:48)
--- NOTE | 2022-04-29 16:44 | XR ---
EXAMINATION TYPE: XR chest 1V portable DATE OF EXAM: 04/29/2022 4:33 PM COMPARISON: Chest radiograph 04/22/2022. TECHNIQUE: XR chest 1V portable Frontal view of the chest. CLINICAL INDICATION:Male, 72 years old with history of hemodialysis catheter insertion; FINDINGS: Lungs/Pleura: No pneumothorax. Blunting of the left costophrenic angle. Patchy left basilar airspace opacities. Pulmonary vascularity: Unremarkable. Heart/mediastinum: Cardiomediastinal silhouette is enlarged and stable. Atherosclerotic calcificatio ns are seen in the aorta. Musculoskeletal: No acute osseous pathology. Midline sternotomy wires are noted and stable. Other findings: None Lines/Tubes: Interval placement of dual lumen right IJ hemodialysis catheter with tip in the right atrium. IMPRESSION: 1. Interval placement of dual lumen right IJ hemodialysis catheter with tip in the right atrium. No pneumothorax. 2. Persistent cardiomegaly with small left pleural effusion. 3. Similar left basilar patchy airspace opacities which may represent atelectasis and/or infiltrate.
[2022-04-29 17:11] LABS: Glucose,Whole Blood 73 mg/dL (70-110)
[2022-04-29 19:46] LABS: Glucose,Whole Blood 217 mg/dL (70-110)
[2022-04-29] MEDS: ATORVASTATIN 20 MG TAB PO SCH (20:44)
[2022-04-30 06:07] LABS: Glucose,Whole Blood 95 mg/dL (70-110)
[2022-04-30] MEDS: INSULIN ASPART (NovoLOG) 100 UNIT/ML VIAL SQ SCH ×7 (06:24→20:50)
[2022-04-30] MEDS: CALCIUM ACETATE 667 MG TAB PO SCH ×3 (06:25→17:15)
[2022-04-30] MEDS: carvediloL 12.5 MG TAB PO SCH ×2 (06:25→17:15)
[2022-04-30] MEDS: INSULIN DETEMIR (LEVEMIR) 100 UNIT/ML SYR SQ SCH (06:26)
[2022-04-30 08:50] LABS: Basophils # (A) 0.1 k/uL (0-0.2); Basophils % (A) 1 %; Eosinophils # (A) 0.4 k/uL (0-0.7); Eosinophils % (A) 4 %; HGB 11.9 gm/dL (13.0-17.5); Lymphocytes # (A) 1.2 k/uL (1.0-4.8); Lymphocytes % (A) 11 %; MCV 96.9 fL (80.0-100.0); Mean Platelet Volume 9.4; Monocytes # (A) 0.6 k/uL (0-1.0); Monocytes % (A) 6 %; Neutrophils # (A) 8.6 k/uL (1.3-7.7); Neutrophils % (A) 77 %; Platelet Count 169 k/uL (150-450); RBC 3.72 m/uL (4.30-5.90); RDW 14.4 % (11.5-15.5); WBC 11.1 k/uL (3.8-10.6)
[2022-04-30 09:04] LABS: Calcium 8.5 mg/dL (8.4-10.2); Phosphorus 5.1 mg/dL (2.5-4.5); Potassium 3.7 mmol/L (3.5-5.1)
[2022-04-30 12:11] LABS: Glucose,Whole Blood 91 mg/dL (70-110)
--- NOTE | 2022-04-30 13:24 | P.PN ---
Subjective Patient is seen in follow-up for chronic kidney disease stage V started on hemodialysis this admission. Permacath placed 04/29/2022. Tolerating dialysis well. Hemodynamically stable. Denies chest pain or shortness of breath. On room air. Vital signs are stable. General: Awake. No acute distress. HEENT: Head exam is unremarkable. LUNGS: Breath sounds decreased. HEART: Rate and Rhythm are regular. ABDOMEN: Soft, no distention. EXTREMITITES: Trace edema. Objective - Vital Signs Vital signs: Vital Signs Temp 97.3 F L 04/30/22 12:00 Pulse 53 L 04/30/22 12:00 Resp 18 04/30/22 12:00 BP 124/69 04/30/22 12:00 Pulse Ox 97 04/30/22 12:00 FiO2 Intake & Output 04/29/22 04/30/22 04/30/22 18:59 06:59 18:59 Intake Total 410 118 Output Total 150 75 Balance 260 -75 118 Weight 90.1 kg 90.5 kg Intake: IV 50 Oral 360 118 Output: Urine 150 75 Other: Voiding Method Urinal Urinal # Voids 2 # Bowel Movements 0 - Labs CBC & Chem 7: 04/30/22 08:16 04/30/22 08:16 Labs: Abnormal Lab Results - Last 24 Hours (Table) 04/29/22 04/30/22 04/30/22 Range/Units 19:45 08:16 08:16 WBC 11.1 H (3.8-10.6) k/uL RBC 3.72 L (4.30-5.90) m/uL Hgb 11.9 L (13.0-17.5) gm/dL Hct 36.0 L (39.0-53.0) % Neutrophils # 8.6 H (1.3-7.7) k/uL BUN 74 H (9-20) mg/dL Creatinine 6.42 H (0.66-1.25) mg/dL POC Glucose (mg/dL) 217 H (70-110) mg/dL Phosphorus 5.1 H (2.5-4.5) mg/dL Assessment and Plan Plan: Assessment: 1. Chronic kidney disease stage V, started on hemodialysis this admission. Permacath placed 04/29/2022. 2. Acute on chronic systolic CHF with ejection fraction of 35% and moderate to severe tricuspid regurgitation and pulmonary hypertension. 3. Hypertension with chronic kidney disease. Controlled. 4. Chronic kidney disease mineral bone disease maintained on calcitriol and PhosLo. Phosphorus level 4.5 04/29/2022. 5. Diabetes mellitus. Plan: Currently seen while undergoing hemodialysis. Next treatment on Thursday. Hold hydralazine for systolic blood pressure less than 120. Maintain torsemide.
[2022-04-30] MEDS: amLODIPine 10 MG TAB PO SCH (14:00)
[2022-04-30] MEDS: cloNIDine HCL 0.1 MG TAB PO SCH ×2 (14:00→20:49)
[2022-04-30] MEDS: ASPIRIN 81 MG PO SCH (14:00)
[2022-04-30] MEDS: ISOSORBIDE MONONITRATE ER 30 MG TAB.ER.24H PO SCH (14:01)
[2022-04-30] MEDS: TORSEMIDE 20 MG TAB PO SCH (14:01)
[2022-04-30] MEDS: hydrALAZINE HCL 50 MG TAB PO SCH ×3 (14:01→20:49)
[2022-04-30] MEDS: FERROUS SULFATE 325 MG TAB PO SCH (14:01)
[2022-04-30] MEDS: guaiFENesin 600 MG TABLET.ER PO SCH ×2 (14:01→20:49)
[2022-04-30] MEDS: FAMOTIDINE 20 MG TAB PO SCH (14:01)
[2022-04-30 17:09] LABS: Glucose,Whole Blood 145 mg/dL (70-110)
[2022-04-30 19:48] LABS: Glucose,Whole Blood 156 mg/dL (70-110)
[2022-04-30] MEDS: ATORVASTATIN 20 MG TAB PO SCH (20:49)
[2022-05-01 06:14] LABS: Glucose,Whole Blood 111 mg/dL (70-110)
[2022-05-01] MEDS: INSULIN ASPART (NovoLOG) 100 UNIT/ML VIAL SQ SCH ×7 (06:41→20:15)
[2022-05-01] MEDS: CALCIUM ACETATE 667 MG TAB PO SCH ×3 (06:45→17:04)
[2022-05-01] MEDS: carvediloL 12.5 MG TAB PO SCH ×2 (06:45→17:16)
[2022-05-01] MEDS: INSULIN DETEMIR (LEVEMIR) 100 UNIT/ML SYR SQ SCH (06:46)
[2022-05-01] MEDS: TORSEMIDE 20 MG TAB PO SCH (08:37)
[2022-05-01] MEDS: ASPIRIN 81 MG PO SCH (08:37)
[2022-05-01] MEDS: cloNIDine HCL 0.1 MG TAB PO SCH ×2 (08:37→20:15)
[2022-05-01] MEDS: FAMOTIDINE 20 MG TAB PO SCH (08:37)
[2022-05-01] MEDS: guaiFENesin 600 MG TABLET.ER PO SCH ×2 (08:38→20:15)
[2022-05-01] MEDS: hydrALAZINE HCL 50 MG TAB PO SCH (08:38)
[2022-05-01] MEDS: amLODIPine 10 MG TAB PO SCH (08:38)
[2022-05-01] MEDS: ISOSORBIDE MONONITRATE ER 30 MG TAB.ER.24H PO SCH (08:38)
[2022-05-01] MEDS: FERROUS SULFATE 325 MG TAB PO SCH (08:38)
--- NOTE | 2022-05-01 11:36 | P.PN ---
Subjective Patient is seen in follow-up for chronic kidney disease stage V started on hemodialysis this admission. Permacath placed 04/29/2022. Hemodynamically stable. Denies chest pain or shortness of breath. On room air. Vital signs are stable. General: Awake. No acute distress. HEENT: Head exam is unremarkable. LUNGS: Breath sounds decreased. HEART: Rate and Rhythm are regular. ABDOMEN: Soft, no distention. EXTREMITITES: Trace edema. Objective - Vital Signs Vital signs: Vital Signs Temp 97.1 F L 05/01/22 11:27 Pulse 58 L 05/01/22 11:27 Resp 18 05/01/22 11:27 BP 97/53 05/01/22 11:27 Pulse Ox 97 05/01/22 11:27 FiO2 Intake & Output 04/30/22 05/01/22 05/01/22 18:59 06:59 18:59 Intake Total 854 118 Output Total 2650 0 Balance -1796 0 118 Weight 91.5 kg Intake: Oral 354 118 Hemodialysis 500 Output: Urine 150 0 Hemodialysis 2500 Other: Voiding Method Urinal Urinal Urinal # Voids 0 # Bowel Movements 0 - Labs CBC & Chem 7: 04/30/22 08:16 04/30/22 08:16 Labs: Abnormal Lab Results - Last 24 Hours (Table) 04/30/22 04/30/22 05/01/22 Range/Units 17:08 19:47 06:12 POC Glucose (mg/dL) 145 H 156 H 111 H (70-110) mg/dL Assessment and Plan Plan: Assessment: 1. Chronic kidney disease stage V, started on hemodialysis this admission. Permacath placed 04/29/2022. 2. Acute on chronic systolic CHF with ejection fraction of 35% and moderate to severe tricuspid regurgitation and pulmonary hypertension. 3. Hypertension with chronic kidney disease. Blood pressure on the lower side this morning. 4. Chronic kidney disease mineral bone disease maintained on calcitriol and PhosLo. Phosphorus level 4.5 04/29/2022. 5. Diabetes mellitus. Plan: Hemodialysis tomorrow. Stop hydralazine. Hold clonidine and amlodipine for systolic blood pressure less than 120. Maintain torsemide. Outpatient dialysis set up by case management.
[2022-05-01 11:42] LABS: Glucose,Whole Blood 245 mg/dL (70-110)
[2022-05-01 16:33] LABS: Glucose,Whole Blood 135 mg/dL (70-110)
[2022-05-01 20:10] LABS: Glucose,Whole Blood 123 mg/dL (70-110)
--- NOTE | 2022-05-02 00:36 | P.PN ---
Subjective Progress Note Date: 04/28/22 Patient is a pleasant 72-year-old male admitted for chronic kidney disease post influenza A infection he'll undergo renal dialysis today as he has had his very sluggish fatigue and nauseated . 04/25/2022 Patient is currently lying in the bed. Awake alert and oriented x3. Breathing status is getting better. Patient had hemodialysis yesterday. No complaints of nausea or vomiting. Blood pressure is better controlled. Apparently patient felt weak this afternoon after dialysis and slid down to the floor. Denies any hitting his head. Patient is back to bed now. No complaints of pain. Laboratory data reviewed. 04/26/2022 Patient is currently resting in the bed. Awake alert and oriented x3. No complaints of chest pain or worsening shortness of breath. No nausea vomiting or abdominal pain or diarrhea. Patient has been having hemodialysis for the last 2 days. Feels better now. Blood pressure is better controlled. Patient does make urine and is being continued on IV Lasix. Currently titrated down to room air. Nephrology and cardiology is on board. Laboratory test showed WBC 12.1 hemoglobin 12.1 platelets 204 sodium 139 potassium 3.3 chloride 105 bicarb is 27 BUN 55 creatinine 4.7 calcium 8.7. 04/27/2022 Patient is currently resting in bed. Awake alert and oriented x3. Patient was dialyzed for the last 3 days. Breathing status is better. No complaints of nausea or vomiting. No chest pain. No cough or sputum production. Laboratory test showed WBC 7.4 hemoglobin 12.4 and platelets 174 BUN 16 creatinine 5.06 and blood sugar is 101. No complaints of dizziness or lighthe adedness.. 04/28/2022 Patient is currently lying in bed. Awake alert and oriented. Patient does have Duncan catheter which apparently has not been functioning well well. No complaints of chest pain. No nausea vomiting abdominal pain or diarrhea. Vascular surgery was consulted for permacath placement. Laboratory data showed WBC 11.7 hemoglobin 12.1 and platelets 184 Sodium 141 potassium 3.6 chloride 106 bicarb is 25 BUN 69 and creatinine 5.74. Blood sugar is 130. Nephrology is on board. Current medications reviewed. Objective - Vital Signs Vital signs: Vital Signs Temp 97.9 F 04/28/22 20:00 Pulse 59 L 04/28/22 20:00 Resp 18 04/28/22 20:00 BP 134/48 04/28/22 20:00 Pulse Ox 94 L 04/28/22 20:00 FiO2 Intake & Output 04/28/22 04/28/22 04/29/22 06:59 18:59 06:59 Intake Total 480 Output Total 600 2150 Balance -600 -1670 Weight 87.5 kg Intake: Oral 180 Hemodialysis 300 Output: Urine 600 150 Hemodialysis 2000 Other: Voiding Method Urinal Urinal Urinal - Exam - Exam GENERAL: This is a 72-year-old [place]. Pleasant and cooperative. HEENT: Head is atraumatic, normocephalic. Pupils are equal, round, and reactive to light. Sclerae anicteric. Conjunctivae are clear. Mucus membranes of the mo uth are dry. Neck is supple. RESPIRATORY: Bibasilar crackles with decrease area exchange bilateral CARDIOVASCULAR: Regular rate and rhythm. S1 and S2 noted. No systolic or diastolic murmur auscultated. No JVD noted. No S3 or S4 noted. GASTROINTESTINAL: No distention noted. Abdomen soft and round. Normal active bowel sounds auscultated x 4 quadrants. No pain or tenderness noted upon palpation. INTEGUMENTARY: Bilateral stasis dermatitis and chronic changes of lower extremities EXTREMITIES: 2+ peripheral pulses. No evidence of peripheral edema. No calf tenderness noted. NEUROLOGIC: Cranial nerves II-XII intact. PSYCHIATRIC: Awake, alert, and oriented X 3. Appropriate affect. 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 - Labs CBC & Chem 7: 04/30/22 08:16 04/30/22 08:16 Labs: Abnormal Lab Results - Last 24 Hours (Table) 04/28/22 04/28/22 04/28/22 Range/Units 07:21 08:14 08:14 WBC 11.7 H (3.8-10.6) k/uL RBC 3.75 L (4.30-5.90) m/uL Hgb 12.1 L (13.0-17.5) gm/dL Hct 37.0 L (39.0-53.0) % Neutrophils # 9.4 H (1.3-7.7) k/uL BUN 69 H (9-20) mg/dL Creatinine 5.74 H (0.66-1.25) mg/dL Glucose 130 H (74-99) mg/dL POC Glucose (mg/dL) 123 H (70-110) mg/dL 04/28/22 04/28/22 04/28/22 Range/Units 12: 16:51 19:58 WBC (3.8-10.6) k/uL RBC (4.30-5.90) m/uL Hgb (13.0-17.5) gm/dL Hct (39.0-53.0) % Neutrophils # (1.3-7.7) k/uL BUN (9-20) mg/dL Creatinine (0.66-1.25) mg/dL Glucose (74-99) mg/dL POC Glucose (mg/dL) 146 H 129 H 206 H (70-110) mg/dL Microbiology - Last 24 Hours (Table) 04/22/22 13:25 Blood Culture - Final Blood No Growth after 144 hours 04/22/22 13:10 Blood Culture - Final Blood No Growth after 144 hours Assessment and Plan Assessment: Acute on chronic CHF with mildly reduced ejection fraction 40% ESRD started on hemodialysis Volume overload. improving Coronary artery disease history of CABG 6 vessel Hypertension Metabolic bone disease Diabetes type 2 Hyperlipidemia Ischemic cardiomyopathy ejection fraction 40% Recent influenza A infection on 04/11/2022 Plan: Will be continued aspirin and statins and Coreg. Also on Catapres 0.1 mg twice daily. Blood pressure is better controlled with hemodialysis x 3. Patient is also on Lasix 60 mg every 12 hourly and hydralazine.Patient does make urine. Continue with insulin regimen insulin sliding scale. Symptomatic management. continue to follow closely. Cardiology and nephrology is on board. Time with Patient: Greater than 30
--- NOTE | 2022-05-02 00:41 | P.PN ---
Subjective Progress Note Date: 04/29/22 Patient is a pleasant 72-year-old male admitted for chronic kidney disease post influenza A infection he'll undergo renal dialysis today as he has had his very sluggish fatigue and nauseated . 04/25/2022 Patient is currently lying in the bed. Awake alert and oriented x3. Breathing status is getting better. Patient had hemodialysis yesterday. No complaints of nausea or vomiting. Blood pressure is better controlled. Apparently patient felt weak this afternoon after dialysis and slid down to the floor. Denies any hitting his head. Patient is back to bed now. No complaints of pain. Laboratory data reviewed. 04/26/2022 Patient is currently resting in the bed. Awake alert and oriented x3. No complaints of chest pain or worsening shortness of breath. No nausea vomiting or abdominal pain or diarrhea. Patient has been having hemodialysis for the last 2 days. Feels better now. Blood pressure is better controlled. Patient does make urine and is being continued on IV Lasix. Currently titrated down to room air. Nephrology and cardiology is on board. Laboratory test showed WBC 12.1 hemoglobin 12.1 platelets 204 sodium 139 potassium 3.3 chloride 105 bicarb is 27 BUN 55 creatinine 4.7 calcium 8.7. 04/27/2022 Patient is currently resting in bed. Awake alert and oriented x3. Patient was dialyzed for the last 3 days. Breathing status is better. No complaints of nausea or vomiting. No chest pain. No cough or sputum production. Laboratory test showed WBC 7.4 hemoglobin 12.4 and platelets 174 BUN 16 creatinine 5.06 and blood sugar is 101. No complaints of dizziness or lighthe adedness.. 04/28/2022 Patient is currently lying in bed. Awake alert and oriented. Patient does have Duncan catheter which apparently has not been functioning well well. No complaints of chest pain. No nausea vomiting abdominal pain or diarrhea. Vascular surgery was consulted for permacath placement. Laboratory data showed WBC 11.7 hemoglobin 12.1 and platelets 184 Sodium 141 potassium 3.6 chloride 106 bicarb is 25 BUN 69 and creatinine 5.74. Blood sugar is 130. Nephrology is on board. 04/29/2022 Patient is currently resting in bed. Awake alert and oriented x3. No complaint s of worsening chest pain or shortness of breath. Currently on room air. Patient had only 2 hours of hemodialysis yesterday due to catheter malfunction. Denied any nausea vomiting abdominal pain or diarrhea. No cough or sputum production. Laboratory data WBC 11.1 hemoglobin 11.7 and platelets 158 BUN 16 creatinine 5.46 and blood sugar 147. Patient is also on IV diuresis. Nephrology is on board. Current medications reviewed. Objective - Vital Signs Vital signs: Vital Signs Temp 96.5 F L 04/29/22 15:40 Pulse 52 L 04/29/22 15:40 Resp 18 04/29/22 15:40 BP 118/55 04/29/22 15:40 Pulse Ox 95 04/29/22 15:40 FiO2 Intake & Output 04/29/22 04/29/22 04/30/22 06:59 18:59 06:59 Intake Total 410 Output Total 100 150 Balance -100 260 Weight 90.1 kg 90.1 kg Intake: IV 50 Oral 360 Output: Urine 100 150 Other: Voiding Method Urinal # Voids 1 # Bowel Movements 0 - Exam - Exam GENERAL: This is a 72-year-old [place]. Pleasant and cooperative. HEENT: Head is atraumatic, normocephalic. Pupils are equal, round, and reactive to light. Sclerae anicteric. Conjunctivae are clear. Mucus membranes of the mouth are dry. Neck is supple. RESPIRATORY: Bibasilar crackles with decrease area exchange bilateral CARDIOVASCULAR: Regular rate and rhythm. S1 and S2 noted. No systolic or diastolic murmur auscultated. No JVD noted. No S3 or S4 noted. GASTROINTESTINAL: No distention noted. Abdomen soft and round. Normal active bowel sounds auscultated x 4 quadrants. No pain or tenderness noted upon palpation. INTEGUMENTARY: Bilateral stasis dermatitis and chronic changes of lower extremities EXTREMITIES: 2+ peripheral pulses. No evidence of peripheral edema. No calf tenderness noted. NEUROLOGIC: Cranial nerves II-XII intact. PSYCHIATRIC: Awake, alert, and oriented X 3. Appropriate affect. Intact judgement and insight. - Labs CBC & Chem 7: 04/30/22 08:16 04/30/22 08:16 Labs: Abnormal Lab Results - Last 24 Hours (Table) 04/29/22 04/29/22 04/29/22 Range/Units 06:11 07:33 07:52 WBC 11.1 H (3.8-10.6) k/uL RBC 3.69 L (4.30-5.90) m/uL Hgb 11.7 L (13.0-17.5) gm/dL Hct 35.8 L (39.0-53.0) % Neutrophils # 9.0 H (1.3-7.7) k/uL BUN (9-20) mg/dL Creatinine (0.66-1.25) mg/dL Glucose (74-99) mg/dL POC Glucose (mg/dL) 140 H 151 H (70-110) mg/dL Calcium (8.4-10.2) mg/dL 04/29/22 04/29/22 04/29/22 Range/Units 07:52 12:15 19:45 WBC (3.8-10.6) k/uL RBC (4.30-5.90) m/uL Hgb (13.0-17.5) gm/dL Hct (39.0-53.0) % Neutrophils # (1.3-7.7) k/uL BUN 60 H (9-20) mg/dL Creatinine 5.46 H (0.66-1.25) mg/dL Glucose 147 H (74-99) mg/dL POC Glucose (mg/dL) 203 H 217 H (70-110) mg/dL Calcium 8.2 L (8.4-10.2) mg/dL Assessment and Plan Assessment: Acute on chronic CHF with mildly reduced ejection fraction 40% ESRD started on hemodialysis. Continued with 3 consecutive days. Volume overload. improving Coronary artery disease history of CABG 6 vessel Hypertension Metabolic bone disease Diabetes type 2 Hyperlipidemia Ischemic cardiomyopathy ejection fraction 40% Recent influenza A infection on 04/11/2022 Plan: Vascular surgery was consulted due to catheter malfunction. Will be continued aspirin and statins and Coreg. Also on Catapres 0.1 mg twice daily. Blood pressure is better controlled with hemodialysis x 3. Patient is also on Lasix 60 mg every 12 hourly and hydralazine.Patient does make urine. Continue with insulin regimen insulin sliding scale. Symptomatic management. continue to follow closely. Cardiology and nephrology is on board. Time with Patient: Greater than 30
--- NOTE | 2022-05-02 00:44 | P.PN ---
Subjective Progress Note Date: 04/30/22 Patient is a pleasant 72-year-old male admitted for chronic kidney disease post influenza A infection he'll undergo renal dialysis today as he has had his very sluggish fatigue and nauseated . 04/25/2022 Patient is currently lying in the bed. Awake alert and oriented x3. Breathing status is getting better. Patient had hemodialysis yesterday. No complaints of nausea or vomiting. Blood pressure is better controlled. Apparently patient felt weak this afternoon after dialysis and slid down to the floor. Denies any hitting his head. Patient is back to bed now. No complaints of pain. Laboratory data reviewed. 04/26/2022 Patient is currently resting in the bed. Awake alert and oriented x3. No complaints of chest pain or worsening shortness of breath. No nausea vomiting or abdominal pain or diarrhea. Patient has been having hemodialysis for the last 2 days. Feels better now. Blood pressure is better controlled. Patient does make urine and is being continued on IV Lasix. Currently titrated down to room air. Nephrology and cardiology is on board. Laboratory test showed WBC 12.1 hemoglobin 12.1 platelets 204 sodium 139 potassium 3.3 chloride 105 bicarb is 27 BUN 55 creatinine 4.7 calcium 8.7. 04/27/2022 Patient is currently resting in bed. Awake alert and oriented x3. Patient was dialyzed for the last 3 days. Breathing status is better. No complaints of nausea or vomiting. No chest pain. No cough or sputum production. Laboratory test showed WBC 7.4 hemoglobin 12.4 and platelets 174 BUN 16 creatinine 5.06 and blood sugar is 101. No complaints of dizziness or lighthe adedness.. 04/28/2022 Patient is currently lying in bed. Awake alert and oriented. Patient does have Duncan catheter which apparently has not been functioning well well. No complaints of chest pain. No nausea vomiting abdominal pain or diarrhea. Vascular surgery was consulted for permacath placement. Laboratory data showed WBC 11.7 hemoglobin 12.1 and platelets 184 Sodium 141 potassium 3.6 chloride 106 bicarb is 25 BUN 69 and creatinine 5.74. Blood sugar is 130. Nephrology is on board. 04/29/2022 Patient is currently resting in bed. Awake alert and oriented x3. No complaints of worsening chest pain or shortness of breath. Currently on room air. Patient had only 2 hours of hemodialysis yesterday due to catheter malfunction. Denied any nausea vomiting abdominal pain or diarrhea. No cough or sputum production. Laboratory data WBC 11.1 hemoglobin 11.7 and platelets 158 BUN 16 creatinine 5.46 and blood sugar 147. Patient is also on IV diuresis. Nephrology is on board. 04/30/2022 Patient is resting in bed. Awake alert and oriented x3. Patient is status post permacath placement yesterday. No complaints of chest pain or shortness of breath. Nephrology is planning for hemodialysis today. Allres Lasix changed to Demadex 40 mg daily. No complaints of cough or sputum production. No nausea vomiting abdominal pain or diarrhea. Laboratory data showed WBC 11.1 hemoglobin 11.9 and platelets 169 sodium 139 potassium 3.7 chloride 105 bicarb is 25 BUN 74 and creatinine 6.42 and phosphorus 5.1. Current medications reviewed. Objective - Vital Signs Vital signs: Vital Signs Temp 98.2 F 04/30/22 17:21 Pulse 50 L 04/30/22 17:21 Resp 16 04/30/22 17:21 BP 134/76 04/30/22 17:21 Pulse Ox 94 L 04/30/22 16:00 FiO2 Intake & Output 04/30/22 04/30/22 05/01/22 06:59 18:59 06:59 Intake Total 854 Output Total 75 2650 Balance -75 -1796 Weight 90.5 kg Intake: Oral 354 Hemodialysis 500 Output: Urine 75 150 Hemodialysis 2500 Other: Voiding Method Urinal Urinal # Voids 2 # Bowel Movements 0 - Exam - Exam GENERAL: This is a 72-year-old [place]. Pleasant and cooperative. HEENT: Head is atraumatic, normocephalic. Pupils are equal, round, and reactive to light. Sclerae anicteric. Conjunctivae are clear. Mucus membranes of the mouth are dry. Neck is supple. RESPIRATORY: Bibasilar crackles with decrease area exchange bilateral CARDIOVASCULAR: Regular rate and rhythm. S1 and S2 noted. No systolic or diastolic murmur auscultated. No JVD noted. No S3 or S4 noted. GASTROINTESTINAL: No distention noted. Abdomen soft and round. Normal active bowel sounds auscultated x 4 quadrants. No pain or tenderness noted upon palpation. INTEGUMENTARY: Bilateral stasis dermatitis and chronic changes of lower extremities EXTREMITIES: 2+ peripheral pulses. No evidence of peripheral edema. No calf tenderness noted. NEUROLOGIC: Cranial nerves II-XII intact. PSYCHIATRIC: Awake, alert, and oriented X 3. Appropriate affect. Intact judgement and insight. - Labs CBC & Chem 7: 04/30/22 08:16 04/30/22 08:16 Labs: Abnormal Lab Results - Last 24 Hours (Table) 04/30/22 04/30/22 04/30/22 Range/Units 08:16 08:16 17:08 WBC 11.1 H (3.8-10.6) k/uL RBC 3.72 L (4.30-5.90) m/uL Hgb 11.9 L (13.0-17.5) gm/dL Hct 36.0 L (39.0-53.0) % Neutrophils # 8.6 H (1.3-7.7) k/uL BUN 74 H (9-20) mg/dL Creatinine 6.42 H (0.66-1.25) mg/dL POC Glucose (mg/dL) 145 H (70-110) mg/dL Phosphorus 5.1 H (2.5-4.5) mg/dL 04/30/22 Range/Units 19:47 WBC (3.8-10.6) k/uL RBC (4.30-5.90) m/uL Hgb (13.0-17.5) gm/dL Hct (39.0-53.0) % Neutrophils # (1.3-7.7) k/uL BUN (9-20) mg/dL Creatinine (0.66-1.25) mg/dL POC Glucose (mg/dL) 156 H (70-110) mg/dL Phosphorus (2.5-4.5) mg/dL Assessment and Plan Assessment: Acute on chronic CHF with mildly reduced ejection fraction 40% ESRD started on hemodialysis. Continued with 3 consecutive days. Volume overload. improving Coronary artery disease history of CABG 6 vessel Hypertension Metabolic bone disease Diabetes type 2 Hyperlipidemia Ischemic cardiomyopathy ejection fraction 40% Recent influenza A infection on 04/11/2022 Plan: Vascular surgery was consulted due to catheter malfunction.Status post new Duncan catheter placement on 04/29/2022. Hemodialysis today. Will be continued aspirin and statins and Coreg. Blood pressure is better controlled with hemodialysis x 3. Patient does make urine.Lasix changed to Demadex 40 mg daily. Continue with insulin regimen insulin sliding scale. Symptomatic management. continue to follow closely. Cardiology and nephrology is on board. Time with Patient: Greater than 30
--- NOTE | 2022-05-02 00:51 | P.PN ---
Subjective Progress Note Date: 05/01/22 Patient is a pleasant 72-year-old male admitted for chronic kidney disease post influenza A infection he'll undergo renal dialysis today as he has had his very sluggish fatigue and nauseated . 04/25/2022 Patient is currently lying in the bed. Awake alert and oriented x3. Breathing status is getting better. Patient had hemodialysis yesterday. No complaints of nausea or vomiting. Blood pressure is better controlled. Apparently patient felt weak this afternoon after dialysis and slid down to the floor. Denies any hitting his head. Patient is back to bed now. No complaints of pain. Laboratory data reviewed. 04/26/2022 Patient is currently resting in the bed. Awake alert and oriented x3. No complaints of chest pain or worsening shortness of breath. No nausea vomiting or abdominal pain or diarrhea. Patient has been having hemodialysis for the last 2 days. Feels better now. Blood pressure is better controlled. Patient does make urine and is being continued on IV Lasix. Currently titrated down to room air. Nephrology and cardiology is on board. Laboratory test showed WBC 12.1 hemoglobin 12.1 platelets 204 sodium 139 potassium 3.3 chloride 105 bicarb is 27 BUN 55 creatinine 4.7 calcium 8.7. 04/27/2022 Patient is currently resting in bed. Awake alert and oriented x3. Patient was dialyzed for the last 3 days. Breathing status is better. No complaints of nausea or vomiting. No chest pain. No cough or sputum production. Laboratory test showed WBC 7.4 hemoglobin 12.4 and platelets 174 BUN 16 creatinine 5.06 and blood sugar is 101. No complaints of dizziness or lighthe adedness.. 04/28/2022 Patient is currently lying in bed. Awake alert and oriented. Patient does have Duncan catheter which apparently has not been functioning well well. No complaints of chest pain. No nausea vomiting abdominal pain or diarrhea. Vascular surgery was consulted for permacath placement. Laboratory data showed WBC 11.7 hemoglobin 12.1 and platelets 184 Sodium 141 potassium 3.6 chloride 106 bicarb is 25 BUN 69 and creatinine 5.74. Blood sugar is 130. Nephrology is on board. 04/29/2022 Patient is currently resting in bed. Awake alert and oriented x3. No complaints of worsening chest pain or shortness of breath. Currently on room air. Patient had only 2 hours of hemodialysis yesterday due to catheter malfunction. Denied any nausea vomiting abdominal pain or diarrhea. No cough or sputum production. Laboratory data WBC 11.1 hemoglobin 11.7 and platelets 158 BUN 16 creatinine 5.46 and blood sugar 147. Patient is also on IV diuresis. Nephrology is on board. 04/30/2022 Patient is resting in bed. Awake alert and oriented x3. Patient is status post permacath placement yesterday. No complaints of chest pain or shortness of breath. Nephrology is planning for hemodialysis today. Allres Lasix changed to Demadex 40 mg daily. No complaints of cough or sputum production. No nausea vomiting abdominal pain or diarrhea. Laboratory data showed WBC 11.1 hemoglobin 11.9 and platelets 169 sodium 139 potassium 3.7 chloride 105 bicarb is 25 BUN 74 and creatinine 6.42 and phosphorus 5.1. 05/01/2022 Patient is currently resting in bed. Awake alert and oriented x3. No complaints of chest pain or shortness of breath. Currently on room air and saturating at 97%. Blood pressure is stable. No complaints of nausea vomiting or abdominal pain or diarrhea. Blood sugar is also controlled well. Next hemodialysis is scheduled for tomorrow. Case management is following for outpatient dialysis set up. Laboratory data reviewed. Current medications reviewed. Objective - Vital Signs Vital signs: Vital Signs Temp 97.8 F 05/01/22 19:51 Pulse 58 L 05/01/22 19:51 Resp 18 05/01/22 19:51 BP 127/67 05/01/22 19:51 Pulse Ox 97 05/01/22 19:51 FiO2 Intake & Output 05/01/22 05/01/22 05/02/22 06:59 18:59 06:59 Intake Total 236 Output Total 0 Balance 0 236 Weight 91.5 kg Intake: Oral 236 Output: Urine 0 Other: Voiding Method Urinal Urinal # Voids 0 # Bowel Movements 1 - Exam - Exam GENERAL: This is a 72-year-old [place]. Pleasant and cooperative. HEENT: Head is atraumatic, normocephalic. Pupils are equal, round, and reactive to light. Sclerae anicteric. Conjunctivae are clear. Mucus membranes of the mouth are dry. Neck is supple. RESPIRATORY: No wheezing or crackles. Clear to auscultation. CARDIOVASCULAR: Regular rate and rhythm. S1 and S2 noted. No systolic or diastolic murmur auscultated. No JVD noted. No S3 or S4 noted. GASTROINTESTINAL: No distention noted. Abdomen soft and round. Normal active bowel sounds auscultated x 4 quadrants. No pain or tenderness noted upon palpation. INTEGUMENTARY: Bilateral stasis dermatitis and chronic changes of lower extremities EXTREMITIES: 2+ peripheral pulses. No evidence of peripheral edema. No calf tenderness noted. NEUROLOGIC: Cranial nerves II-XII intact. PSYCHIATRIC: Awake, alert, and oriented X 3. Appropriate affect. Intact judgement and insight. - Labs CBC & Chem 7: 04/30/22 08:16 04/30/22 08:16 Labs: Abnormal Lab Results - Last 24 Hours (Table) 05/01/22 05/01/22 05/01/22 Range/Units 06:12 11:38 16:32 POC Glucose (mg/dL) 111 H 245 H 135 H (70-110) mg/dL 05/01/22 Range/Units 20:08 POC Glucose (mg/dL) 123 H (70-110) mg/dL Assessment and Plan Assessment: Acute on chronic CHF with mildly reduced ejection fraction 40% ESRD started on hemodialysis. Continued with 3 consecutive days. Volume overload. improving Coronary artery disease history of CABG 6 vessel Hypertension Metabolic bone disease Diabetes type 2 Hyperlipidemia Ischemic cardiomyopathy ejection fraction 40% Recent influenza A infection on 04/11/2022 Plan: Vascular surgery was consulted due to catheter malfunction.Status post new Duncan catheter placement on 04/29/2022. Hemodialysis Yesterday. Next hemodialysis tomorrow. Outpatient hemodialysis set up as per case management follow-up.. Will be continued aspirin and statins and Coreg. Blood pressure is better controlled with hemodialysis x 3. Patient does make urine.Lasix changed to Demadex 40 mg daily. Continue with insulin regimen insulin sliding scale. Symptomatic management. continue to follow closely. nephrology is on board. Time with Patient: Greater than 30
[2022-05-02] MEDS: INSULIN ASPART (NovoLOG) 100 UNIT/ML VIAL SQ SCH ×6 (06:15→17:21)
[2022-05-02 06:16] LABS: Glucose,Whole Blood 98 mg/dL (70-110)
[2022-05-02] MEDS: INSULIN DETEMIR (LEVEMIR) 100 UNIT/ML SYR SQ SCH (06:34)
[2022-05-02] MEDS: CALCIUM ACETATE 667 MG TAB PO SCH ×3 (06:34→17:21)
[2022-05-02] MEDS: carvediloL 12.5 MG TAB PO SCH ×2 (06:34→17:21)
[2022-05-02 07:58] LABS: Basophils # (A) 0.1 k/uL (0-0.2); Basophils % (A) 1 %; Eosinophils # (A) 0.2 k/uL (0-0.7); Eosinophils % (A) 2 %; HCT 34.6 % (39.0-53.0); HGB 11.5 gm/dL (13.0-17.5); Lymphocytes # (A) 1.1 k/uL (1.0-4.8); Lymphocytes % (A) 11 %; MCH 32.7 pg (25.0-35.0); MCHC 33.2 g/dL (31.0-37.0); MCV 98.5 fL (80.0-100.0); Mean Platelet Volume 9.1; Monocytes # (A) 0.5 k/uL (0-1.0); Monocytes % (A) 5 %; Neutrophils % (A) 79 %; Platelet Count 144 k/uL (150-450); RBC 3.52 m/uL (4.30-5.90); RDW 14.1 % (11.5-15.5); WBC 10.1 k/uL (3.8-10.6)
[2022-05-02 08:37] LABS: Calcium 8.4 mg/dL (8.4-10.2); Phosphorus 5.6 mg/dL (2.5-4.5)
--- NOTE | 2022-05-02 11:47 | IR ---
EXAMINATION TYPE: IR cvc insert central tunneled DATE OF EXAM: 04/29/2022 CLINICAL HISTORY: Renal failure TECHNIQUE: Fluoroscopy. COMPARISON: None. FINDINGS: Fluoroscopic guidance was provided during procedure performed by Dr. Funes. A total of 2.8 minutes of fluoroscopic time was utilized during the procedure. Final image demonstrates a tunnel ed right internal jugular central venous catheter with tip at the SVC/RA junction. Please see procedu re report dictated by the referring clinician. IMPRESSION: As Above.
[2022-05-02 11:59] LABS: Glucose,Whole Blood 108 mg/dL (70-110)
[2022-05-02] MEDS: TORSEMIDE 20 MG TAB PO SCH (13:42)
[2022-05-02] MEDS: FERROUS SULFATE 325 MG TAB PO SCH (13:42)
[2022-05-02] MEDS: ASPIRIN 81 MG PO SCH (13:42)
[2022-05-02] MEDS: FAMOTIDINE 20 MG TAB PO SCH (13:42)
[2022-05-02] MEDS: guaiFENesin 600 MG TABLET.ER PO SCH (13:42)
[2022-05-02] MEDS: cloNIDine HCL 0.1 MG TAB PO SCH (13:49)
[2022-05-02] MEDS: amLODIPine 10 MG TAB PO SCH (13:49)
[2022-05-02] MEDS: ISOSORBIDE MONONITRATE ER 30 MG TAB.ER.24H PO SCH (13:49)
--- NOTE | 2022-05-02 14:22 | P.PN ---
Subjective Patient is seen in follow-up for chronic kidney disease stage V started on hemodialysis this admission. Permacath placed 04/29/2022. Hemodynamically stable. Denies chest pain or shortness of breath. On room air. Tolerating dialysis well. Vital signs are stable. General: Awake. No acute distress. HEENT: Head exam is unremarkable. LUNGS: Breath sounds decreased. HEART: Rate and Rhythm are regular. ABDOMEN: Soft, no distention. EXTREMITITES: Trace edema. Objective - Vital Signs Vital signs: Vital Signs Temp 97.9 F 05/02/22 12:36 Pulse 64 05/02/22 12:36 Resp 18 05/02/22 12:36 BP 116/78 05/02/22 12:36 Pulse Ox 97 05/02/22 12:36 FiO2 Intake & Output 05/01/22 05/02/22 05/02/22 18:59 06:59 18:59 Intake Total 236 240 Output Total 150 100 150 Balance 86 -100 90 Weight 84.5 kg Intake: Oral 236 240 Output: Urine 150 100 150 Other: Voiding Method Urinal Urinal Urinal # Voids 1 # Bowel Movements 1 0 - Labs CBC & Chem 7: 05/02/22 06:59 05/02/22 06:59 Labs: Abnormal Lab Results - Last 24 Hours (Table) 05/01/22 05/01/22 05/02/22 Range/Units 16:32 20:08 06:59 RBC 3.52 L (4.30-5.90) m/uL Hgb 11.5 L (13.0-17.5) gm/dL Hct 34.6 L (39.0-53.0) % Plt Count 144 L (150-450) k/uL Neutrophils # 8.0 H (1.3-7.7) k/uL Sodium (137-145) mmol/L Carbon Dioxide (22-30) mmol/L BUN (9-20) mg/dL Creatinine (0.66-1.25) mg/dL POC Glucose (mg/dL) 135 H 123 H (70-110) mg/dL Phosphorus (2.5-4.5) mg/dL 05/02/22 Range/Units 06:59 RBC (4.30-5.90) m/uL Hgb (13.0-17.5) gm/dL Hct (39.0-53.0) % Plt Count (150-450) k/uL Neutrophils # (1.3-7.7) k/uL Sodium 134 L (137-145) mmol/L Carbon Dioxide 20 L (22-30) mmol/L BUN 59 H (9-20) mg/dL Creatinine 5.81 H (0.66-1.25) mg/dL POC Glucose (mg/dL) (70-110) mg/dL Phosphorus 5.6 H (2.5-4.5) mg/dL Assessment and Plan Plan: Assessment: 1. Chronic kidney disease stage V, started on hemodialysis this admission. Permacath placed 04/29/2022. 2. Acute on chronic systolic CHF with ejection fraction of 35% and moderate to severe tricuspid regurgitation and pulmonary hypertension. 3. Hypertension with chronic kidney disease. Controlled. 4. Chronic kidney disease mineral bone disease maintained on calcitriol and PhosLo. Phosphorus level 4.5 04/29/2022; 5.6 today. 5. Diabetes mellitus. Plan: Currently seen while undergoing hemodialysis. Next treatment on Thursday. Hold clonidine and amlodipine for systolic blood pressure less than 120. Maintain torsemide. Outpatient dialysis set up by case management.
[2022-05-02 14:31] VITALS: BMI 26.7
--- NOTE | 2022-05-02 15:49 | P.DS ---
Providers Date of admission: 04/22/22 15:04 Expected date of discharge: 05/02/22 Attending physician: Sahil Carmona Consults: 04/22/22 15:03 Consult Physician Urgent Consulting Provider: Yane Alvarado Consult Reason/Comments: Chronic renal failure, pulmonary edema Do you want consulting provider notified?: Yes 04/23/22 10:33 Consult Physician Urgent Consulting Provider: Javy Funes Consult Reason/Comments: Dialysis catheter placement Do you want consulting provider notified?: Yes Primary care physician: Sahil Carmona Hospital Course: Final diagnosis Acute on chronic CHF with mildly reduced ejection fraction 40% ESRD started on hemodialysis. Thursday/Thursday/Thursday Volume overload. improved Coronary artery disease history of CABG 6 vessel Hypertension Metabolic bone disease Diabetes type 2 Hyperlipidemia Ischemic cardiomyopathy ejection fraction 40% Recent influenza A infection on 04/11/2022 Full code Discharge disposition Patient is being discharged in a stable condition with guarded prognosis to [facility]. Patient will follow-up with Dr. Valera in the outpatient setting upon discharge. Patient is to continue with hemodialysis as scheduled and Session being Thursday. Patient to follow-up with primary care provider Dr. Carmona outpatient. Recommend outpatient follow-up with nephrology. Total time taken is greater than 35 minutes. Hospital course This is a 72-year-old male who was recently admitted With influenza and feeling generalized weakness and fatigue and maintained on hemodialysis for end-stage renal disease. Patient has had prolonged hospitalization and medication adjustments. Patient also diabetic recommend continue with current medications as mentioned below. Patient to continue on Thursday/Thursday/Thursday schedule and close outpatient follow-up with nephrology. Patient has received a new permacath and will continue current medications. Recommend close monitoring of blood pressures and continuing to hold clonidine and lisinopril along with Lasix. Patient is maintained on Demadex and recommend continue with repeat labs in the next 2-3 days to monitor CBC, BMP, magnesium. Patient needs close outpatient follow-up with nephrology. Continue on a renal diet with consistent carb diet as well. Patient was significant weakness seen and evaluated by PT/OT therapy recommending subacute rehab and patient along with family is agreeable. Currently no reports of chest pain, shortness of breath, or palpitations. Patient is afebrile. No reports of nausea or vomiting and patient is tolerating diet. Patient will be going to [facility] today. Guarded prognosis. Physical exam: Gen: This is a 72-year-old male who is awake, alert and oriented 3, well- developed, well-nourished. HEENT: Head is atraumatic, normocephalic. Pupils equal, round. Sclerae is anicteric. NECK: Supple. No JVD. No lymphadenopathy. No thyromegaly. LUNGS:Menest breath sounds bilaterally with No wheezes or rhonchi. No intercostal retractions. HEART: Regular rate and rhythm. No murmur. ABDOMEN: Soft. Bowel sounds are present. No masses. No tenderness. EXTREMITIES: No pedal edema. No calf tenderness. NEUROLOGICAL: Patient is awake, alert and oriented x3. Cranial nerves 2 through 12 are grossly intact. Diffusely weak Please refer to medication reconciliation sheet for a list of medications. The impression and plan of care has been dictated by Mila Dowell, Nurse Practitioner as directed. Dr. Desmond MD I have performed a history and examination and MDM of this patient, discussed the same with the dictator, and agree with the dictator's assessment and plan as written ,documented as a scribe. Based on total visit time, I have performed more than 50% of the visit. Patient Condition at Discharge: Fair Plan - Discharge Summary Discharge Rx Participant: No New Discharge Prescriptions: New guaiFENesin [Mucinex] 600 mg PO Q12HR tab Docusate [Colace] 100 mg PO DAILY PRN cap PRN Reason: Constipation Torsemide [Demadex] 40 mg PO DAILY tab amLODIPine [Norvasc] 5 mg PO DAILY tab INSULIN ASPART (NovoLOG) [NovoLOG (formulary)] 0 unit SQ ACHS each Continue Famotidine [Pepcid] 20 mg PO DAILY Aspirin EC [Ecotrin Low Dose] 81 mg PO DAILY Atorvastatin [Lipitor] 20 mg PO HS carvediloL [Coreg] 25 mg PO BID Nitroglycerin Sl Tabs [Nitrostat] 0.4 mg PO Q5M PRN PRN Reason: Chest Pain Ergocalciferol [Vitamin D2 (1250 Mcg = 05959 Iu)] 1,250 mcg PO KEATING Ferrous Sulfate [Feosol] 325 mg PO DAILY calcitrioL [Calcitriol] 0.25 mcg PO MOTUWETHFR Isosorbide Mononitrate [Isosorbide Mononitrate ER] 30 mg PO DAILY Insulin Lispro [humaLOG Kwikpen] 10 units SQ AC-BID@1200,1800 INSULIN LISPRO (humaLOG) [humaLOG] 18 units SQ AC-BRKFST Insulin Glargine,Hum.rec.anlog [Lantus Solostar Pen] 30 unit SQ DAILY Calcium Acetate [PhosLo] 667 mg PO TID-W/MEALS #0 tab Changed hydrALAZINE HCL [Apresoline] 100 mg PO TID PRN #180 tab PRN Reason: Hypertension Discontinued Clopidogrel [Plavix] 75 mg PO DAILY #90 tab Sodium Bicarbonate Tab 650 mg PO TID tab Furosemide [Lasix] 60 mg PO BID Discharge Medication List Aspirin EC [Ecotrin Low Dose] 81 mg PO DAILY 10/27/13 [History] Famotidine [Pepcid] 20 mg PO DAILY 10/27/13 [History] Atorvastatin [Lipitor] 20 mg PO HS 12/30/16 [History] Nitroglycerin Sl Tabs [Nitrostat] 0.4 mg PO Q5M PRN 07/18/19 [History] carvediloL [Coreg] 25 mg PO BID 07/18/19 [History] Ergocalciferol [Vitamin D2 (1250 Mcg = 79465 Iu)] 1,250 mcg PO KEATING 04/11/22 [History] Ferrous Sulfate [Feosol] 325 mg PO DAILY 04/11/22 [History] INSULIN LISPRO (humaLOG) [humaLOG] 18 units SQ AC-BRKFST 04/11/22 [History] Insulin Glargine,Hum.rec.anlog [Lantus Solostar Pen] 30 unit SQ DAILY 04/11/22 [History] Insulin Lispro [humaLOG Kwikpen] 10 units SQ AC-BID@1200,1800 04/11/22 [History] Isosorbide Mononitrate [Isosorbide Mononitrate ER] 30 mg PO DAILY 04/11/22 [History] calcitrioL [Calcitriol] 0.25 mcg PO MOTUWETHFR 04/11/22 [History] Calcium Acetate [PhosLo] 667 mg PO TID-W/MEALS #0 tab 04/15/22 [Rx] Docusate [Colace] 100 mg PO DAILY PRN cap 05/02/22 [Rx] INSULIN ASPART (NovoLOG) [NovoLOG (formulary)] 0 unit SQ ACHS each 05/02/22 [Rx ] Torsemide [Demadex] 40 mg PO DAILY tab 05/02/22 [Rx] amLODIPine [Norvasc] 5 mg PO DAILY tab 05/02/22 [Rx] guaiFENesin [Mucinex] 600 mg PO Q12HR tab 05/02/22 [Rx] hydrALAZINE HCL [Apresoline] 100 mg PO TID PRN #180 tab 05/02/22 [Rx] Follow up Appointment(s)/Referral(s): [facility] [NON-STAFF] - 05/02/22 7:35 am (Your chair time is Mondays,Wednesdays and Fridays at 7:35AM. On your day please arrive 15 minutes prior to appointment to fill out paperwork. Thank you!) Sahil Carmona DO [Primary Care Provider] - 1-2 days Activity/Diet/Wound Care/Special Instructions: Patient is going to [facility] Activity as tolerated Continue with dialysis and next treatment is on Thursday Continue to hold clonidine and amlodipine for systolic blood pressure less than 120 Continue torsemide and continue to hold Lasix Continue renal diet and diabetic diet Continue to monitor Accu-Cheks before meals and at bedtime and treat accordingly with current regimen NovoLog sliding scale 0-150 equals 0 units 151-200 equals 2 units 201-250 equals 4 units 251-300 equals 6 units 301-350 equals 8 units 351-400 equals 10 units Please notify provider if blood sugar is 400 or above Follow-up with primary care provider on discharge Follow-up with nephrology outpatient Discharge Disposition: TRANSFER TO SNF/ECF
[2022-05-02 16:47] VITALS: BP 129/72; PULSE 82; RESP 20; TEMP 98
[2022-05-02 17:12] LABS: Glucose,Whole Blood 204 mg/dL (70-110)
[2022-05-03] MEDS ORDERED: amLODIPine 5 MG TAB PO SCH (09:00)
== END 2022-05-02 17:56 | DRG 291 ==
LOC: EC 11:53 → 3SCARD 15:04
PROVIDERS: ADMIT Family Medicine; ATTEND Family Medicine
PROC: 06HY33Z Insertion of Infusion Device into Lower Vein, Percutaneous Approach (ICD-10-PCS; 2022-04-23 11:50)
PROC: 5A1D70Z Performance of Urinary Filtration, Intermittent, Less than 6 Hours Per Day (ICD-10-PCS; 2022-04-24)
PROC: 0JH63XZ Insertion of Tunneled Vascular Access Device into Chest Subcutaneous Tissue and Fascia, Percutaneous Approach (ICD-10-PCS; principal; 2022-04-29 15:30)
DX: I13.2 Hypertensive heart and chronic kidney disease with heart failure and with stage 5 chronic kidney disease, or end stage renal disease (principal); I50.23 Acute on chronic systolic (congestive) heart failure; N18.6 End stage renal disease; L03.90 Cellulitis, unspecified; G93.40 Encephalopathy, unspecified; I27.20 Pulmonary hypertension, unspecified; E11.319 Type 2 diabetes mellitus with unspecified diabetic retinopathy without macular edema; D63.1 Anemia in chronic kidney disease; E11.22 Type 2 diabetes mellitus with diabetic chronic kidney disease; Z95.1 Presence of aortocoronary bypass graft; I08.3 Combined rheumatic disorders of mitral, aortic and tricuspid valves; I77.819 Aortic ectasia, unspecified site; Z99.2 Dependence on renal dialysis; E78.5 Hyperlipidemia, unspecified; I25.10 Atherosclerotic heart disease of native coronary artery without angina pectoris; I25.5 Ischemic cardiomyopathy; M89.8X9 Other specified disorders of bone, unspecified site; I87.2 Venous insufficiency (chronic) (peripheral); Z20.822 Contact with and (suspected) exposure to COVID-19; Z95.5 Presence of coronary angioplasty implant and graft; Z79.899 Other long term (current) drug therapy; Z79.82 Long term (current) use of aspirin; Z79.4 Long term (current) use of insulin; Z79.02 Long term (current) use of antithrombotics/antiplatelets; I25.2 Old myocardial infarction; Z86.19 Personal history of other infectious and parasitic diseases
CPT/HCPCS: 36415; 36556; 36558; 71045; 71046; 76937; 77001; 80048; 80053; 83605; 83735; 83880; 84100; 84132; 84484; 85025; 85610; 85730; 86704; 86706; 86803; 87040; 87340; 87635; 90935; 93005; 96374; 96375; 99285

== ENCOUNTER → 2022-09-18 | Outpatient (CLI) | payer MEDICARE ==
--- NOTE | 2022-09-19 08:59 | NM ---
EXAMINATION TYPE: NM DatScan Brain SPECT DATE OF EXAM: 09/18/2022 COMPARISON: NONE HISTORY: Tremor TECHNIQUE: 10 drops of Lugol's solution was administered 1 hour prior to injection as a thyroid bloc faustina agent. After the administration of 4.4 mCi I-123 Ioflupane DaTscan. Images obtained [address] injection. SPECT images of the brain were acquired with axial and coronal reconstructions. FINDINGS: The axial SPECT images demonstrate increased background activity and symmetric activity wit hin the bilateral striata. IMPRESSION: No diagnostic evidence of Parkinson's disease or parkinsonian syndrome.
== END | disposition home or self-care (01) ==
LOC: RADNMMAIN 10:59
PROVIDERS: ATTEND Psychiatry & Neurology Neurology
DX: G25.0 Essential tremor (principal); R26.81 Unsteadiness on feet
CPT/HCPCS: 78803; A9584

== ENCOUNTER 2023-01-01 12:07 | Day surgery (SDC) | payer MEDICARE ==
[~2023-01-01 12:07] MED LIST changes: +ACETAMINOPHEN TAB 500 MG TAB PO PRN; -ALPRAZolam 0.25 MG TAB PO PRN; -ALPRAZolam 0.5 MG TAB PO PRN; -ASPIRIN 325 MG TAB PO STA; +DEXAMETHASONE SOD PHOSPHATE 4 MG/ML 1 ML VIAL IV ONE; +HEPARIN SODIUM,PORCINE/PF 5,000 UNIT/0.5 ML SYRINGE SQ PRN; +HYDROmorphone 0.5 MG/0.5 ML SYRINGE IVP PRN; +LACTATED RINGERS 1,000 ML IV SCH; +MIDAZOLAM 2 MG/2 ML VIAL IV PRN; -NITROGLYCERIN SL TABS 0.4 MG TAB SUBLINGUAL PRN; +ONDANSETRON 4 MG/2 ML VIAL IVP ONE; -SODIUM CHLORIDE 0.9% 1,000 ML in EMPTY BAG 1 BAG IV ONE
--- NOTE | 2023-01-01 12:17 | P.GSHP ---
History of Present Illness H&P Date: 01/01/23 Chief Complaint: Renal failure 72-year-old male seen in November. Patient was started on hemodialysis last April. Goes for hemodialysis Thursday. Her today for peritoneal dialysis catheter placement. Past Medical History Past Medical History: Coronary Artery Disease (CAD), Chest Pain / Angina, Heart Failure, Diabetes Mellitus, Dialysis, Eye Disorder, GERD/Reflux, Hyperlipidemia, Hypertension, Myocardial Infarction ([place]), Pneumonia, Renal Disease Additional Past Medical History / Comment(s): IDDM type II, bilateral diabetic retinopathy, CKD stage III, nephrolithiasis, bronchitis, L pleural effusion, recently received 2 iron infusions for anemia. gets eye injections every 3 mos for retinopathy.dialysis influenaza A 2021. having stress test and echo done 12/18 and 12/30 as routine care no issues at this time. Last Myocardial Infarction Date:: 2009 History of Any Multi-Drug Resistant Organisms: None Reported Past Surgical History: Coronary Bypass/CABG, Heart Catheterization, Heart Catheterization With Stent Additional Past Surgical History / Comment(s): 2009 CABG 5 vessel, bilateral cataract removals/lens implants, oral surgery Past Anesthesia/Blood Transfusion Reactions: No Reported Reaction, Motion Sickness Date of Last Stent Placement:: 08/05/17 Smoking Status: Never smoker - Past Family History Mother Family Medical History: CVA/TIA, Diabetes Mellitus Father Family Medical History: CVA/TIA, Myocardial Infarction ([place]) Additional Family Medical History / Comment(s): mother: htn, dm. Medications and Allergies Home Medications Medication Instructions Recorded Confirmed Type Aspirin EC [Ecotrin Low Dose] 81 mg PO DAILY 10/27/13 12/25/22 History Famotidine [Pepcid] 20 mg PO DAILY 10/27/13 12/25/22 History Atorvastatin [Lipitor] 20 mg PO DAILY 12/30/16 12/25/22 History Nitroglycerin Sl Tabs [Nitrostat] 0.4 mg PO Q5M PRN 07/18/19 12/25/22 History Ergocalciferol [Vitamin D2 (1250 1,250 mcg PO KEATING 04/11/22 12/25/22 History Mcg = 95294 Iu)] Insulin Glargine,Hum.rec.anlog 25 unit SQ HS 04/11/22 12/25/22 History [Lantus Solostar Pen] Insulin Lispro [humaLOG Kwikpen] 10 units SQ 0800,1200,1800 04/11/22 12/25/22 History Calcium Acetate [PhosLo] 667 mg PO TID-W/MEALS #0 tab 04/15/22 12/25/22 Rx Docusate [Colace] 100 mg PO DAILY PRN cap 05/02/22 12/25/22 Rx INSULIN ASPART (NovoLOG) [NovoLOG 0 unit SQ ACHS each 05/02/22 12/25/22 Rx (formulary)] guaiFENesin [Mucinex] 600 mg PO Q12HR tab 05/02/22 12/25/22 Rx hydrALAZINE HCL [Apresoline] 100 mg PO TID PRN #180 tab 05/02/22 12/25/22 Rx Clopidogrel [Plavix] 75 mg PO DAILY 12/25/22 12/25/22 History Escitalopram [Lexapro] 10 mg PO DAILY 12/25/22 12/25/22 History Midodrine [ProAmatine] 2.5 mg PO TID PRN 12/25/22 12/25/22 History Torsemide [Demadex] 2 mg PO DAILY 12/25/22 12/25/22 History Allergies Allergy/AdvReac Type Severity Reaction Status Date / Time No Known Allergies Allergy Verified 12/25/22 15:56 Surgical - Exam Physical exam: General: Well-developed, well-nourished HEENT: Normocephalic, sclerae nonicteric Abdomen: Nontender, nondistended, no palpable hernias Extremities: No edema Neuro: Alert and oriented Assessment and Plan (1) Chronic kidney failure Narrative/Plan: 72-year-old male with kidney failure. We'll proceed with peritoneal dialysis catheter insertion. Risks of bleeding infection poor function peritonitis bladder injury bowel injury fluid leak hernia reviewed. He understands and wishes to proceed. Current Visit: No Status: Acute Code(s): N18.9 - CHRONIC KIDNEY DISEASE, UNSPECIFIED SNOMED Code(s): 92558421
[2023-01-01 13:12] LABS: HCT 34.4 % (39.0-53.0); HGB 11.9 gm/dL (13.0-17.5); MCH 34.2 pg (25.0-35.0); MCHC 34.6 g/dL (31.0-37.0); MCV 98.8 fL (80.0-100.0); Mean Platelet Volume 8.6; Platelet Count 218 k/uL (150-450); RBC 3.48 m/uL (4.30-5.90); RDW 13.3 % (11.5-15.5)
[2023-01-01 13:15] LABS: Glucose,Whole Blood 166 mg/dL (70-110)
[2023-01-01 13:23] LABS: African American GFR (CKD) 11 (>60 ml/min/1.73 sqM); Anion Gap 15 mmol/L; Blood Urea Nitrogen 40 mg/dL (9-20); Carbon Dioxide 22 mmol/L (22-30); Chloride 104 mmol/L (98-107); Non-African American GFR(CKD) 10 (>60 ml/min/1.73 sqM); Potassium 4.3 mmol/L (3.5-5.1); Sodium 141 mmol/L (137-145)
[2023-01-01] MEDS ORDERED: GLYCOPYRROLATE 0.2 MG/ML 2 ML VIAL ONE (13:24)
[2023-01-01] MEDS ORDERED: MIDAZOLAM 2 MG/2 ML VIAL ONE (13:24)
[2023-01-01] MEDS ORDERED: LIDOCAINE 2% INJ 20 MG/ML (2 ML VIAL) ONE (13:24)
[2023-01-01] MEDS ORDERED: fentaNYL (PF) 50 MCG/ML 2 ML AMP ONE (13:24)
[2023-01-01] MEDS ORDERED: PROPOFOL 10 MG/ML 20 ML VIAL IV ONE (13:24)
[2023-01-01] MEDS ORDERED: BUPIVACAINE (PF) 0.5% 30 ML VIAL SQ ONE ×2 (13:52)
[2023-01-01] MEDS ORDERED: MINERAL OIL 1 APPLIC/ML OIL TOPICAL ONE (13:52)
[2023-01-01] MEDS ORDERED: NALOXONE 0.4 MG/ML 1 ML VIAL IV PRN (14:29)
[2023-01-01] MEDS ORDERED: HYDROcodone/APAP 5-325MG 1 EACH TAB PO PRN (14:29)
--- NOTE | 2023-01-01 14:32 | P.OP ---
Date of Procedure: 01/01/23 Procedure(s) Performed: PREOPERATIVE DIAGNOSIS: Renal failure POSTOPERATIVE DIAGNOSIS: Same PROCEDURE: Peritoneal dialysis catheter insertion SURGEON: Ishmael EBL: Minimal ANESTHESIA: Sedation plus local COMPLICATIONS: None OPERATIVE PROCEDURE: The patient was placed in the operative table in the supine position. The abdomen was prepped and draped in usual sterile fashion. A small vertical incision was made in the left periumbilical location. Dissection down through the subcutaneous tissues took place using electrocautery. The anterior rectus was divided vertically using the scalpel. The rectus was bluntly. The posterior rectus was visualized. An 0 Vicryl pursestring was placed. A small opening in the posterior rectus fascia and peritoneum took place using a Metzenbaum scissors. There were no adhesions to the suture that was placed. The pigtail catheter was advanced into the pelvis over a stylette. No resistance was met. The inner cuff was secured to the fascia using the 0 Vicryl pursestring that was placed. The catheter was tunneled to an exit site in the left lateral lower quadrant. The catheter was connected to the 1 L bag of saline and approximated 800 mL of saline was easily introduced into the peritoneal cavity. The fluid was then allowed to evacuate. The majority of the fluid was returned. The anterior rectus fascia was then reapproximated using a running 0 Vicryl stitch. The subcutaneous tissues reprepped using 3-0 Vicryl sutures and the skin using 4-0 Monocryl sutures. The outpatient dialysis adapter was applied to the end of the catheter. Sterile dressings were then applied after skin glue was placed over the incision. DISPOSITION: Stable to recovery room
[2023-01-01 14:40] VITALS: TEMP 97.4
[2023-01-01 14:46] LABS: Glucose,Whole Blood 138 mg/dL (70-110)
[2023-01-01] MEDS ORDERED: hydrALAZINE HCL 20 MG/ML 1 ML VIAL IVP ONE (15:04)
[2023-01-01 15:12] VITALS: RESP 20
[2023-01-01 15:42] VITALS: BP 141/90; PULSE 82
== END 2023-01-01 15:54 ==
LOC: OR 12:07
PROVIDERS: ATTEND Surgery
DX: N19 Unspecified kidney failure (principal); I25.10 Atherosclerotic heart disease of native coronary artery without angina pectoris; E11.22 Type 2 diabetes mellitus with diabetic chronic kidney disease; K21.9 Gastro-esophageal reflux disease without esophagitis; I25.2 Old myocardial infarction; E78.5 Hyperlipidemia, unspecified; E11.36 Type 2 diabetes mellitus with diabetic cataract; Z95.1 Presence of aortocoronary bypass graft; Z83.3 Family history of diabetes mellitus; Z82.3 Family history of stroke; Z82.49 Family history of ischemic heart disease and other diseases of the circulatory system; Z79.899 Other long term (current) drug therapy
CPT/HCPCS: 80051; 82565; 84520; 85027; 49421; C1752; J2250; J0360; J1100; J0690; J2405; J3010; J2704; J1644; J2001; J0665

== ENCOUNTER → 2023-02-14 | Outpatient (CLI) | payer MEDICARE ==
[2023-02-14 23:06] LABS: HCT 35.6 % (39.6-50.0); HGB 11.7 d/dL (13.0-17.0); MCH 32.8 pg (27.0-32.0); MCHC 32.9 d/dL (32.0-37.0); MCV 99.7 FL (80.0-97.0); Mean Platelet Volume 11.1 FL (9.5-12.2); NRBC Per 100 WBC 0 X 10*3/uL (0.00-0.01); Platelet Count 244 X 10*3/uL (140-440); RBC 3.57 X 10*6/uL (4.40-5.60); RDW 13.2 % (11.5-14.5); WBC 9.92 X 10*3/uL (4.50-10.00)
[2023-02-14 23:24] LABS: Blood Urea Nitrogen 35.3 mg/dL (9.0-27.0); Chloride 99 mmol/L (96-109); Potassium 4.5 mmol/L (3.5-5.5); Sodium 139 mmol/L (135-145)
== END | disposition home or self-care (01) ==
LOC: LABPAT 10:45
PROVIDERS: ATTEND Internal Medicine Interventional Cardiology
DX: Z01.812 Encounter for preprocedural laboratory examination (principal); I25.10 Atherosclerotic heart disease of native coronary artery without angina pectoris
CPT/HCPCS: 80051; 82565; 84520; 85027

== ENCOUNTER 2023-02-24 06:14 | Day surgery (SDC) | payer MEDICARE ==
[~2023-02-24 06:14] MED LIST changes: -ACETAMINOPHEN TAB 500 MG TAB PO PRN; +ALPRAZolam 0.25 MG TAB PO PRN; +ALPRAZolam 0.5 MG TAB PO PRN; +ASPIRIN 325 MG TAB PO STA; -DEXAMETHASONE SOD PHOSPHATE 4 MG/ML 1 ML VIAL IV ONE; +HEPARIN SODIUM,PORCINE (1 ML) 2,500 UNIT in SODIUM CHLORIDE 0.9% 250 ML IRRIGATION PRN; +HEPARIN SODIUM,PORCINE 10,000 UNIT in SODIUM CHLORIDE 0.9% 1,000 ML IRRIGATION PRN; -HEPARIN SODIUM,PORCINE/PF 5,000 UNIT/0.5 ML SYRINGE SQ PRN; -HYDROmorphone 0.5 MG/0.5 ML SYRINGE IVP PRN; -LACTATED RINGERS 1,000 ML IV SCH; -MIDAZOLAM 2 MG/2 ML VIAL IV PRN; +NITROGLYCERIN SL TABS 0.4 MG TAB SUBLINGUAL PRN; -ONDANSETRON 4 MG/2 ML VIAL IVP ONE; +SODIUM CHLORIDE 0.9% 1,000 ML in EMPTY BAG 1 BAG IV SCH
[2023-02-24] MEDS ORDERED: SODIUM CHLORIDE 0.9% 1,000 ML IV ONE (06:32)
[2023-02-24 06:54] LABS: Glucose,Whole Blood 167 mg/dL (70-110)
[2023-02-24] MEDS ORDERED: LIDOCAINE 1% INJ 10MG/ML (20 ML MDV) ONE (07:16)
[2023-02-24 07:17] VITALS: RESP 16; TEMP 97.7
[2023-02-24] MEDS: MIDAZOLAM 2 MG/2 ML VIAL IVP ONE ×2 (07:48→08:28)
[2023-02-24] MEDS ORDERED: LIDOCAINE 1% INJ 10MG/ML (20 ML MDV) SQ ONE (07:50)
[2023-02-24] MEDS ORDERED: fentaNYL (PF) 50 MCG/ML 2 ML AMP ONE (07:55)
[2023-02-24] MEDS ORDERED: fentaNYL (PF) 50 MCG/ML 2 ML AMP IVP ONE ×2 (07:55)
[2023-02-24] MEDS ORDERED: niCARdipine 25 MG/10 ML VIAL ONE (08:04)
[2023-02-24] MEDS ORDERED: NITROGLYCERIN 1000MCG/10ML SYRINGE INTRACORON ONE (08:04)
[2023-02-24] MEDS ORDERED: niCARdipine Syringe (1,000 mcg/10 mL) INTRACORON ONE (08:05)
[2023-02-24] MEDS ORDERED: HEPARIN SODIUM 1,000 UN/ML (10ML VL) ONE (08:11)
[2023-02-24] MEDS ORDERED: HEPARIN SODIUM 1,000 UN/ML (10ML VL) IV ONE (08:12)
[2023-02-24] MEDS ORDERED: RX INFO: IV CONTRAST WAS GIVEN 1 EACH MISC MISCELLANE PRN (08:41)
[2023-02-24] MEDS ORDERED: IOPAMIDOL-370 100ML BTL INJ ONE ×2 (08:43)
[2023-02-24] MEDS ORDERED: SODIUM CHLORIDE 0.9% 1,000 ML IV SCH (08:45)
--- NOTE | 2023-02-24 08:48 | P.PCN ---
Date of Procedure: 02/24/23 Operative Findings: CARDIAC CATHETERIZATION PERFORMING PHYSICIAN: Shantanu Gong MD, RPVI PROCEDURE PERFORMED: 1. Selective right and left coronary angiogram 2. Left heart catheterization 3. AGUILLON to LAD angiogram and SVG to LCx angiogram and SVG to RCA angiogram 4. Selective right common femoral artery angiogram and ultrasound guided access of the right common femoral artery INDICATION: This is 73-year-old gentleman with CAD and status post CABG with AGUILLON into LAD and SVG to RCA and the occlusion of the SVG to diagonal and left circumflex as well as ischemic cardiomyopathy was seen in the office recently for shortness of breath. He underwent myocardial perfusion imaging stress test and that came in to be abnormal showing an anterior and lateral ischemia. In the light of that a heart catheterization was advised COMPLICATION: None APPROACH: Right common femoral artery LEVEL OF SEDATION: Moderate with sedation in length of 49 minutes PROCEDURE DESCRIPTION: After obtaining an informed consent, the patient was brought to cardiac ship laborer. Local anesthesia was performed using lidocaine subcutaneously. The right common femoral artery was cannulated using Seldinger technique, the guidewire passed easily, following that we advanced a 6 Green[place]ic sheath dilator assembly, the wire and dilator were removed and sheath was flushed. Selective right and left coronary angiogram using a 6-Greenlandic JR4 and JL catheters. The AGUILLON into LAD angiogram and SVG to RCA angiogram was performed using JR4 catheters. The SVG to LCx angiogram was performed using JR4 catheter as well. Following that we did left heart catheterization using 6-Greenlandic pigtail catheter. I did attempt crossing the occluded SVG to RCA using a whisper wire and Fielder XT and that was unsuccessful The procedure was completed there was no complication. By the end selective right common femoral artery angiogram was performed SELECTIVE CORONARY ANGIOGRAM: The right coronary artery: Large-caliber vessel and a dominant vessel and chronically occluded by the proximal portion Left main: Calcified was mild disease only The left circumflex: Large-caliber vessel. The LCx proximally has mild disease only. Gives rises into an OM1 which is a small caliber vessel was intermediate disease in the proximal portion and oriented to which is a large caliber vessel appears to have mild disease only. The left circumflex in the mid and distal portion appears to have mild disease only. Gives rises into an ointment 3 which is small caliber vessel and appeared to be occluded The left anterior descending artery: In the proximal LAD has mild to moderate disease only. The mid LAD is subtotally occluded. Coronary bypasses angiogram The AGUILOLN to LAD is patent The SVG to LCx is occluded The SVG to RCA is occluded by the distal anastomosis HEMODYNAMICS: The LVEDP was 4 mmHg with mild gradient was identified across aortic valve CONCLUSION: 1. Subtotally occluded LAD in the midportion. The AGUILLON to LAD is patent 2. Mild disease involving the left circumflex coronary system 3. Occluded the right coronary artery. SVG to RCA is occluded POSTPROCEDURE MANAGEMENT: Medical treatment
[2023-02-24] MEDS ORDERED: INSULIN ASPART (NovoLOG) 100 UNIT/ML VIAL SQ ONE (09:57)
[2023-02-24 13:59] VITALS: PULSE 62
[2023-02-24 15:21] VITALS: BP 152/78
== END 2023-02-24 16:00 | disposition home or self-care (01) ==
LOC: CATHCVL 06:14
PROVIDERS: ATTEND Internal Medicine Interventional Cardiology
DX: I25.10 Atherosclerotic heart disease of native coronary artery without angina pectoris (principal); I25.5 Ischemic cardiomyopathy; I12.0 Hypertensive chronic kidney disease with stage 5 chronic kidney disease or end stage renal disease; N18.5 Chronic kidney disease, stage 5; I38 Endocarditis, valve unspecified; I77.819 Aortic ectasia, unspecified site; E78.5 Hyperlipidemia, unspecified; I42.9 Cardiomyopathy, unspecified; Z95.1 Presence of aortocoronary bypass graft; Z79.82 Long term (current) use of aspirin; Z79.899 Other long term (current) drug therapy
CPT/HCPCS: 93459; 92920; 99152; 99153 ×2; C1769 ×4; C1887; C1894; J2250; J2001; J3010; J1644; Q9967; J2305

== ENCOUNTER 2023-09-29 16:35 | Emergency (ER) | payer MEDICARE ==
--- NOTE | 2023-09-29 17:01 | ED ---
Neuro HPI - General Chief Complaint: Altered Mental Status Stated Complaint: Neuro Symptoms Time Seen by Provider: 09/29/23 16:48 Source: patient, family, RN notes reviewed, old records reviewed Mode of arrival: wheelchair Limitations: no limitations - History of Present Illness Is the patient presenting with stroke symptoms?: Yes -: hour(s) Initial Comments: This is a 73-year-old male coming in for CVA type symptoms patient has increased initial confusion patient has persistent confusion here in the emergency department symptoms all began this morning. Patient confusion persist here in the ER although patient is improving in that regard. Patient has no headache chest pain shortness of breath or abdominal pain. Patient is peritoneal dialysis. Has had episodes of this before his also in relation to dialysis Location: speech, dysarthria, ataxia, altered History of same: Yes Place: home Severity: moderate Quality: weak, numb Improves With: none Worsens With: time Context: gradual onset, other (Patient awoke with symptoms) Associated Symptoms: confusion, nausea/vomiting, weakness Treatments Prior to Arrival: none - Related Data Home Medications: Home Medications Medication Instructions Recorded Confirmed Aspirin EC [Ecotrin Low Dose] 81 mg PO DAILY 10/27/13 09/29/23 Famotidine [Pepcid] 20 mg PO DAILY 10/27/13 09/29/23 Atorvastatin [Lipitor] 20 mg PO DAILY 12/30/16 09/29/23 Nitroglycerin Sl Tabs [Nitrostat] 0.4 mg PO Q5M PRN 07/18/19 09/29/23 Ergocalciferol [Vitamin D2 (1250 1,250 mcg PO KEATING 04/11/22 09/29/23 Mcg = [id number] Iu)] Insulin Lispro [humaLOG Kwikpen] 20 - 25 units SQ DIRECTED 04/11/22 09/29/23 Clopidogrel [Plavix] 75 mg PO DAILY 12/25/22 09/29/23 Escitalopram [Lexapro] 10 mg PO DAILY 12/25/22 09/29/23 Midodrine [ProAmatine] 2.5 mg PO DIRECTED PRN 12/25/22 09/29/23 Torsemide [Demadex] 20 mg PO DAILY 12/25/22 09/29/23 ALPRAZolam [Xanax] 0.25 mg PO DAILY PRN 02/19/23 09/29/23 Insulin Glargine,Hum.rec.anlog 45 unit SQ DIRECTED 02/19/23 09/29/23 [Basaglar Quinpen U-100] Metoprolol Succinate [Metoprolol 25 mg PO DAILY 02/19/23 09/29/23 Succinate ER] Ondansetron [Zofran] 4 mg PO DIRECTED PRN 02/19/23 09/29/23 Sodium Bicarbonate Tab 650 mg PO DAILY 02/19/23 09/29/23 Calcium Acetate [PhosLo] 1,334 mg PO TID-W/MEALS 09/29/23 09/29/23 Calcium Acetate [Phoslo] 667 mg PO DAILY PRN 09/29/23 09/29/23 Potassium Chloride ER [K-Dur 10] 10 meq PO DAILY 09/29/23 09/29/23 hydrALAZINE HCL [Apresoline] 25 mg PO BID PRN 09/29/23 09/29/23 lisinopriL [Zestril] 10 mg PO BID 09/29/23 09/29/23 Allergies/Adverse Reactions: Allergies Allergy/AdvReac Type Severity Reaction Status Date / Time cephalexin Allergy Rash/Hives Verified 09/29/23 19:07 Review of Systems ROS Statement: Those systems with pertinent positive or pertinent negative responses have been documented in the HPI. ROS Other: All systems not noted in ROS Statement are negative. General Exam Limitations: no limitations General appearance: alert, in no apparent distress Head exam: Present: atraumatic, normocephalic, normal inspection Eye exam: Present: normal appearance, PERRL, EOMI. Absent: scleral icterus, conjunctival injection, periorbital swelling ENT exam: Present: normal exam, mucous membranes moist Neck exam: Present: normal inspection. Absent: tenderness, meningismus, lymphadenopathy Respiratory exam: Present: normal lung sounds bilaterally. Absent: respiratory distress, wheezes, rales, rhonchi, stridor Cardiovascular Exam: Present: regular rate, normal rhythm, normal heart sounds. Absent: systolic murmur, diastolic murmur, rubs, gallop, clicks GI/Abdominal exam: Present: soft, normal bowel sounds. Absent: distended, tenderness, guarding, rebound, rigid Extremities exam: Present: normal inspection, full ROM, normal capillary refill. Absent: tenderness, pedal edema, joint swelling, calf tenderness Back exam: Present: normal inspection Neurological exam: Present: alert, oriented X3, CN II-XII intact Psychiatric exam: Present: normal affect, normal mood Skin exam: Present: warm, dry, intact, normal color. Absent: rash Stroke MDM - Lab Data Result diagrams: 09/29/23 17:01 09/29/23 17:01 Lab Results 09/29/23 09/29/23 09/29/23 Range/Units 17:01 17:01 17:01 WBC 15.3 H (3.8-10.6) k/uL RBC 3.85 L (4.30-5.90) m/uL Hgb 12.6 L (13.0-17.5) gm/dL Hct 36.9 L (39.0-53.0) % MCV 95.8 (80.0-100.0) fL MCH 32.8 (25.0-35.0) pg MCHC 34.3 (31.0-37.0) g/dL RDW 14.5 (11.5-15.5) % Plt Count 271 (150-450) k/uL MPV 8.5 Neutrophils % 75 % Lymphocytes % 17 % Monocytes % 5 % Eosinophils % 2 % Basophils % 1 % Neutrophils # 11.4 H (1.3-7.7) k/uL Lymphocytes # 2.6 (1.0-4.8) k/uL Monocytes # 0.7 (0-1.0) k/uL Eosinophils # 0.3 (0-0.7) k/uL Basophils # 0.1 (0-0.2) k/uL PT 10.0 (10.0-12.5) sec INR 0.9 (<1.2) APTT 21.1 L (22.0-30.0) sec Sodium 139 (137-145) mmol/L Potassium 3.5 (3.5-5.1) mmol/L Chloride 102 (98-107) mmol/L Carbon Dioxide 23 (22-30) mmol/L Anion Gap 14 mmol/L BUN 58 H (9-20) mg/dL Creatinine 6.81 H (0.66-1.25) mg/dL Est GFR (CKD-EPI)AfAm 8 (>60 ml/min/1.73 sqM) Est GFR (CKD-EPI)NonAf 7 (>60 ml/min/1.73 sqM) Glucose 180 H (74-99) mg/dL Calcium 10.4 H (8.4-10.2) mg/dL Total Bilirubin 0.5 (0.2-1.3) mg/dL AST 21 (17-59) U/L ALT 20 (4-49) U/L Alkaline Phosphatase 65 (38-126) U/L Creatine Kinase 131 (55-170) U/L Troponin I (0.000-0.034) ng/mL Total Protein 6.7 (6.3-8.2) g/dL Albumin 4.0 (3.5-5.0) g/dL Urine Color Urine Appearance (Clear) Urine pH (5.0-8.0) Ur Specific [place] (1.001-1.035) Urine Protein (Negative) Urine Glucose (UA) (Negative) Urine Ketones (Negative) Urine Blood (Negative) Urine Nitrite (Negative) Urine Bilirubin (Negative) Urine Urobilinogen (<2.0) mg/dL Ur Leukocyte Esterase (Negative) Urine RBC (0-5) /hpf Urine WBC (0-5) /hpf Ur Squamous Epith Cells (0-4) /hpf Hyaline Casts (0-2) /lpf 09/29/23 09/29/23 Range/Units 17:01 19:38 WBC (3.8-10.6) k/uL RBC (4.30-5.90) m/uL Hgb (13.0-17.5) gm/dL Hct (39.0-53.0) % MCV (80.0-100.0) fL MCH (25.0-35.0) pg MCHC (31.0-37.0) g/dL RDW (11.5-15.5) % Plt Count (150-450) k/uL MPV Neutrophils % % Lymphocytes % % Monocytes % % Eosinophils % % Basophils % % Neutrophils # (1.3-7.7) k/uL Lymphocytes # (1.0-4.8) k/uL Monocytes # (0-1.0) k/uL Eosinophils # (0-0.7) k/uL Basophils # (0-0.2) k/uL PT (10.0-12.5) sec INR (<1.2) APTT (22.0-30.0) sec Sodium (137-145) mmol/L Potassium (3.5-5.1) mmol/L Chloride (98-107) mmol/L Carbon Dioxide (22-30) mmol/L Anion Gap mmol/L BUN (9-20) mg/dL Creatinine (0.66-1.25) mg/dL Est GFR (CKD-EPI)AfAm (>60 ml/min/1.73 sqM) Est GFR (CKD-EPI)NonAf (>60 ml/min/1.73 sqM) Glucose (74-99) mg/dL Calcium (8.4-10.2) mg/dL Total Bilirubin (0.2-1.3) mg/dL AST (17-59) U/L ALT (4-49) U/L Alkaline Phosphatase (38-126) U/L Creatine Kinase (55-170) U/L Troponin I 0.237 H* (0.000-0.034) ng/mL Total Protein (6.3-8.2) g/dL Albumin (3.5-5.0) g/dL Urine Color Colorless Urine Appearance Clear (Clear) Urine pH 5.5 (5.0-8.0) Ur Specific [place] 1.020 (1.001-1.035) Urine Protein 1+ H (Negative) Urine Glucose (UA) Trace H (Negative) Urine Ketones Negative (Negative) Urine Blood Small H (Negative) Urine Nitrite Negative (Negative) Urine Bilirubin Negative (Negative) Urine Urobilinogen <2.0 (<2.0) mg/dL Ur Leukocyte Esterase Trace H (Negative) Urine RBC 2 (0-5) /hpf Urine WBC 10 H (0-5) /hpf Ur Squamous Epith Cells <1 (0-4) /hpf Hyaline Casts 8 H (0-2) /lpf - NIH Stroke Scale 1a. Level of Consciousness: (0) alert 1b. LOC Questions: (0) answers correctly 1c. LOC Commands: (0) performs tasks correctly 2. Best Gaze: (0) normal 3. Visual: (0) no visual loss 4. Facial Palsy: (0) normal symmetrical movement 5a. Motor Arm Left: (0) no drift 5b. Motor Arm Right: (0) no drift 6a. Motor Leg Left: (0) no drift 6b. Motor Leg Right: (0) no drift 7. Limb Ataxia: (0) absent 9. Best Language: (1) mild/moderate aphasia 10. Dysarthria: (1) mild/moderate dysarthria 11. Extinction/Inattention: (0) no abnormality - Thrombolytic Inclusion/Exclusion Thrombolytic Exclusion Criteria: Symptom Onset > 4.5 Hours - Medical Decision Making 73 male with altered mental status. At this time patient symptoms are improving nausea vomiting is improving patient feels well enough for discharge home, further inpatient stay or hospital admission - Radiology Data Radiology results: report reviewed (CT brain CT angio head neck negative for acute disease old CVA), image reviewed - EKG Data -: EKG Interpreted by Me (EKG is A-fib 89 QRS 142 QTc 428) Past Medical History Past Medical History: Diabetes Mellitus, Renal Disease Additional Past Medical History / Comment(s): IDDM type II, bilateral diabetic retinopathy, CKD stage III, nephrolithiasis, bronchitis, L pleural effusion, recently received 2 iron infusions for anemia. gets eye injections every 3 mos for retinopathy.dialysis ++THU influenaza A 2021. having stress test and echo done 12/18 and 12/30 as routine care no issues at this time. Last Myocardial Infarction Date:: 2009 History of Any Multi-Drug Resistant Organisms: None Reported Past Surgical History: Coronary Bypass/CABG, Heart Catheterization, Heart Catheterization With Stent Additional Past Surgical History / Comment(s): 2009 CABG 5 vessel, bilateral cataract removals/lens implants, oral surgery Past Anesthesia/Blood Transfusion Reactions: No Reported Reaction, Motion Sickness Date of Last Stent Placement:: 08/05/17 Past Psychological History: No Psychological Hx Reported Smoking Status: Never smoker Past Alcohol Use History: Rare Past Drug Use History: None Reported - Past Family History Mother Family Medical History: CVA/TIA, Diabetes Mellitus Father Family Medical History: CVA/TIA, Myocardial Infarction (ME) Additional Family Medical History / Comment(s): mother: htn, dm. Course Vital Signs 09/29/23 09/29/23 09/29/23 16:40 17:02 17:19 Temperature 98.3 F Pulse Rate 69 84 80 Respiratory 20 18 18 Rate Blood Pressure 187/80 181/100 173/96 O2 Sat by Pulse 100 97 100 Oximetry 09/29/23 09/29/23 09/29/23 17:30 17:45 18:00 Temperature Pulse Rate 76 74 74 Respiratory 16 16 16 Rate Blood Pressure 179/87 163/85 176/89 O2 Sat by Pulse 100 100 100 Oximetry 09/29/23 09/29/23 09/29/23 18:15 18:30 18:45 Temperature Pulse Rate 80 79 75 Respiratory 18 18 18 Rate Blood Pressure 160/85 163/88 152/91 O2 Sat by Pulse 99 98 99 Oximetry 09/29/23 09/29/23 19:00 20:33 Temperature Pulse Rate 78 77 Respiratory 18 18 Rate Blood Pressure 161/94 160/88 O2 Sat by Pulse 100 96 Oximetry - Reevaluation(s) Reevaluation #1: 09/29/23 20:02 Echo records reviewed Reevaluation #2: 09/29/23 20:02 Patient symptoms improving vomiting resolved Reevaluation #3: 09/29/23 20:03 Patient informed of results questions answered Reevaluation #4: 10/15/23 22:47 Was pt. sent in by a medical professional or institution (, PA, SUPERVISOR [employer]ENS, urgent care, hospital, or senior living...) When possible be specific @ -no Did you speak to anyone other than the patient for history (EMS, parent, family, police, friend...)? What history was obtained from this source @ -no Did you review nursing and triage notes (agree or disagree)? Why? @ -agree Are old charts reviewed (outside hosp., previous admission, EMS record, old EKG, old radiological studies, urgent care reports/EKG's, senior living records)? Report findings @ -yes Differential Diagnosis (chest pain, altered mental status, abdominal pain women, abdominal pain men, vaginal bleeding, weakness, fever, dyspnea, syncope, headache, dizziness, GI bleed, back pain, seizure, CVA, palpatations, mental health, musculoskeletal)? @ -prior EKG interpreted by me (3pts min.). @ -yes X-rays interpreted by me (1pt min.). @ -no CT interpreted by me (1pt min.). @ -yes negative for acute disease U/S interpreted by me (1pt. min.). @ -no What testing was considered but not performed or refused? (CT, X-rays, U/S, labs)? Why? @ -none What meds were considered but not given or refused? Why? @ -none Did you discuss the management of the patient with other professionals (professionals i.e. , PA, SUPERVISOR [employer], lab, RT, psych nurse, drug abuse social worker, quality control tester, teacher, personal banking officer, case aide)? Give summary @ -no Was smoking cessation discussed for >3mins.? @ -no Was critical care preformed (if so, how long)? @ -no Were there social determinants of health that impacted care today? How? (Homelessness, low income, unemployed, alcoholism, drug addiction, transportation, low edu. Level, literacy, decrease access to med. care, residential, rehab)? @ -none Was there de-escalation of care discussed even if they declined (Discuss DNR or withdrawal of care, Hospice)? DNR status @ -no What co-morbidities impacted this encounter? (DM, HTN, Smoking, COPD, CAD, Cancer, CVA, ARF, Chemo, Hep., AIDS, mental health diagnosis, sleep apnea, morbid obesity)? @ -none Was patient admitted / discharged? Hospital course, mention meds given and route, prescriptions, significant lab abnormalities, going to OR and other pertinent info. @ - 73 male with altered mental status. At this time patient symptoms are improving nausea vomiting is improving patient feels well enough for discharge home, further inpatient stay or hospital admission Discharge Undiagnosed new problem with uncertain prognosis? @ -no Drug Therapy requiring intensive monitoring for toxicity (Heparin, Nitro, Insulin, Cardizem)? @ -no Were any procedures done? @ -no Diagnosis/symptom? @ -Altered mental status Acute, or Chronic, or Acute on Chronic? @ -Acute Uncomplicated (without systemic symptoms) or Complicated (systemic symptoms)? @ -Complicated Side effects of treatment? @ -no Exacerbation, Progression, or Severe Exacerbation? @ -exacerbation Poses a threat to life or bodily function? How? (Chest pain, [place], ME, pneumonia, PE, COPD, DKA, ARF, appy, cholecystitis, CVA, Diverticulitis, Homicidal, Suicidal, threat to staff... and all critical care pts) @ -yes dialysis related symptoms, altered mental status Reevaluation #5: Differential CVA Ischemic stroke, hemorrhagic stroke, brain tumor, atypical migraine, Wernicke's encephalopathy, seizure, multiple sclerosis, meningitis, encephalitis, hypoglycemia, Guillain-Gonzalez, electrolytes disturbance, myasthenia gravis.... This is not meant to be an all-inclusive list Disposition Clinical Impression: Altered mental status, Nausea & vomiting, Encephalopathy acute, Unsteady gait, Chronic kidney failure, Renal failure (ARF), acute on chronic Disposition: HOME SELF-CARE Condition: Stable Instructions (If sedation given, give patient instructions): Altered Mental Status (ED) Is patient prescribed a controlled substance at d/c from ED?: No Referrals: Sahil Carmona DO [Primary Care Provider] - 1-2 days Time of Disposition: 20:00
[2023-09-29] MEDS: ONDANSETRON 4 MG/2 ML VIAL IVP STA (17:18)
[2023-09-29] MEDS: SODIUM CHLORIDE 0.9% 1,000 ML IV STA (17:18)
[2023-09-29 17:26] VITALS: TEMP 98.3
[2023-09-29 17:35] LABS: ALT 20 U/L (4-49); AST 21 U/L (17-59); African American GFR (CKD) 8 (>60 ml/min/1.73 sqM); Alkaline Phosphatase 65 U/L (38-126); Anion Gap 14 mmol/L; Basophils # (A) 0.1 k/uL (0-0.2); Basophils % (A) 1 %; Blood Urea Nitrogen 58 mg/dL (9-20); Calcium 10.4 mg/dL (8.4-10.2); Carbon Dioxide 23 mmol/L (22-30); Chloride 102 mmol/L (98-107); Creatine Kinase 131 U/L (55-170); Eosinophils # (A) 0.3 k/uL (0-0.7); Eosinophils % (A) 2 %; Glucose 180 mg/dL (74-99); HCT 36.9 % (39.0-53.0); HGB 12.6 gm/dL (13.0-17.5); Lymphocytes # (A) 2.6 k/uL (1.0-4.8); Lymphocytes % (A) 17 %; MCH 32.8 pg (25.0-35.0); MCHC 34.3 g/dL (31.0-37.0); MCV 95.8 fL (80.0-100.0); Mean Platelet Volume 8.5; Monocytes # (A) 0.7 k/uL (0-1.0); Monocytes % (A) 5 %; Neutrophils # (A) 11.4 k/uL (1.3-7.7); Neutrophils % (A) 75 %; Non-African American GFR(CKD) 7 (>60 ml/min/1.73 sqM); Platelet Count 271 k/uL (150-450); Potassium 3.5 mmol/L (3.5-5.1); RBC 3.85 m/uL (4.30-5.90); RDW 14.5 % (11.5-15.5); Sodium 139 mmol/L (137-145); Total Bilirubin 0.5 mg/dL (0.2-1.3); Total Protein 6.7 g/dL (6.3-8.2); WBC 15.3 k/uL (3.8-10.6)
--- NOTE | 2023-09-29 17:42 | CT ---
EXAMINATION TYPE: CODE STROKE: CT brain wo contr DATE OF EXAM: 09/29/2023 COMPARISON: 04/11/2022 HISTORY: 73-year-old male neurologic deficit, acute, STROKE suspected. Facial droop. TECHNIQUE: Examination was done in axial plane without intravenous contrast. Coronal and sagittal r econstructions performed. CT DLP: 1188.3 mGycm Automated exposure control for dose reduction was used. FINDINGS: There is no evidence of acute intracranial hemorrhage, acute ischemic changes, mass, mass-effect, or extra-axial fluid collection. There is no effacement of cerebral sulci or basal subarachnoid cister ns. Similar mild ventriculomegaly likely due to central cerebral atrophy. There is no midline shift. [place]-white matter distinction is preserved. Redemonstrate confluent white matter hypodensities in both cerebral hemispheres. Redemonstrated are o ld encephalomalacia posterior left parietal lobe. Apical scarring calcifications bilateral carotid siphons. Mild mucosal thickening left maxillary sinus. Mastoid air cells well pneumatized. Slight leftward annie al septal deviation. Orbits and globes appear intact. IMPRESSION: 1. 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 Confluent bu rden of chronic small vessel ischemic disease. 2. Similar central cerebral atrophy with mild ventriculomegaly. 3. No acute intracranial abnormality seen.
[2023-09-29 17:45] LABS: INR 0.9 (<1.2)
--- NOTE | 2023-09-29 17:51 | CT ---
EXAMINATION TYPE: CT angio head neck DATE OF EXAM: 09/29/2023 COMPARISON: CT brain same day HISTORY: 73-year-old male facial droop, STROKE TECHNIQUE: Contiguous axial scanning of the head and neck performed with IV Contrast, patient injecte d with 65ml mL of Isovue 370. Coronal and sagittal reconstructions performed. 3-D reconstructions gen erated on a dedicated independent workstation. CT DLP: 1874.4 mGycm Automated exposure control for dose reduction was used. FINDINGS: Neck: Small left pleural effusion. Post-CABG changes. 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 Both vertebral ar teries are codominant and patent throughout their course. Motion limits the left carotid bifurcation. There appears to be mild atherosclerotic calcifications h ere resulting in mild, less than 50% proximal left ICA stenosis by NASCET criteria. Otherwise, the bilateral common and internal carotid arteries are patent. HEAD: Outside calcifications within the bilateral carotid siphons. This results in a moderate stenosis of t he bilateral distal supraclinoid internal carotid artery, left greater than right, for example, on th e left, axial series 405 image 379. Slightly hypoplastic A1 segment left anterior cerebral artery. Otherwise, the anterior circulation is patent. Codominant vertebral arteries. Both vertebral and basilar arteries are widely patent as is the remain raghavendra of the posterior circulation. No aneurysmal change is seen. IMPRESSION: NECK: 1. MOTION LIMITING ASSESSMENT OF THE LEFT CAROTID BIFURCATION. SUSPECT MILD, LESS THAN 50% PROXIMAL L EFT ICA STENOSIS. NO HEMODYNAMICALLY SIGNIFICANT VERTEBRAL CAROTID ARTERY STENOSIS ON EITHER SIDE. 2. 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 3. NOTE A SMALL LEFT PLEURAL EFFUSION. Correlate with patient's fluid status. HEAD: 4. Atherosclerotic changes of the bilateral carotid siphons with moderate stenoses of the distal, sup raclinoid ICAs, left greater than right. 5. Otherwise, no large vessel intracranial arterial occlusion or aneurysmal change is seen.
[2023-09-29 17:55] LABS: Partial Thromboplastin Time 21.1 sec (22.0-30.0)
[2023-09-29 19:02] VITALS: RESP 18
[2023-09-29 19:57] LABS: Appearance,Urine Clear (Clear); Bilirubin,Urine Negative (Negative); Blood,Urine Small (Negative); Color,Urine Colorless; Glucose,Urine (UA) Trace (Negative); Hyaline Casts,Urine 8 /lpf (0-2); Ketones,Urine Negative (Negative); Leukocyte Esterase,Urine Trace (Negative); Nitrite,Urine Negative (Negative); PH, Urine 5.5 (5.0-8.0); Protein,Urine 1+ (Negative); RBC,Urine 2 /hpf (0-5); Squamous Epithelial Cell,Urine <1 /hpf (0-4); Urobilinogen,Urine <2.0 mg/dL (<2.0); WBC,Urine 10 /hpf (0-5)
[2023-09-29 21:23] VITALS: BP 160/88; PULSE 77
== END 2023-09-29 20:42 | disposition home or self-care (01) ==
LOC: EC 16:35
DX: R41.82 Altered mental status, unspecified (principal); G93.40 Encephalopathy, unspecified; N17.9 Acute kidney failure, unspecified; E11.22 Type 2 diabetes mellitus with diabetic chronic kidney disease; N18.30 Chronic kidney disease, stage 3 unspecified; R26.81 Unsteadiness on feet; I48.91 Unspecified atrial fibrillation; Z99.2 Dependence on renal dialysis; Z88.1 Allergy status to other antibiotic agents; Z79.4 Long term (current) use of insulin
CPT/HCPCS: 36415; 93005; 80053; 82550; 84484; 85025; 85610; 85730; 81001; 70496; 70450; 70498; 99285; 96374; 96361; J2405; Q9967